=== PATIENT | female | born 1970 | race Caucasian/White ===

== ENCOUNTER 2016-03-16 07:18 | Inpatient (IN) | payer SELFPAY ==
[~2016-03-16] VITALS: Ht 162.6 cm; Wt 81.3 kg
[2016-03-16] VITALS (10 sets, daily range): BP systolic 109–139; BP diastolic 72–88; PULSE 68–132; RESP 16–20; TEMP 97.9–100.3; O2SAT 93–99
[~2016-03-16 07:18] MED LIST: BUSP5TAB PO; CIPR-9 PO; GABA600T PO; NORC5TAB PO; SERO100T PO; VIST50CA PO
[2016-03-16] MEDS ORDERED: KETOROLAC TROMETHAMINE 30 MG/ML (IVP) VIAL IV PUSH ONE (08:00)
[2016-03-16 08:02] LABS: AUTOMATED NEUTROPHIL # 20.5 TH/MM3 (1.8-7.7); BASOPHIL # 0.2 TH/MM3 (0-0.2); BASOPHIL % 0.9 % (0.0-2.0); EOSINOPHIL % 0.1 % (0.0-4.0); HEMATOCRIT 38.9 % (35.0-46.0); LYMPHOCYTE # 1.4 TH/MM3 (1.0-4.8); MEAN CELL VOLUME 82.7 FL (80.0-100.0); MEAN CORPUSCULAR HGB CONC 32.6 % (32.0-36.0); MONO % 5.8 % (0.0-8.0); NEUT % 87.2 % (16.0-70.0); PLATELET COUNT 313 TH/MM3 (150-450); RED BLOOD COUNT 4.71 MIL/MM3 (4.00-5.30); RED CELL DISTRIBUTION WIDTH 15.5 % (11.6-17.2); WHITE BLOOD COUNT 23.5 TH/MM3 (4.0-11.0)
--- NOTE | 2016-03-16 08:08 | RADHPO ---
EXAM DATE/TIME: 03/16/2016 07:58 [place] COMPARISON: CHEST SINGLE AP, September 26, 2015, 22:48. INDICATIONS : Short of breath, cough, fever MEDICAL HISTORY : None. SURGICAL HISTORY : None. ENCOUNTER: Initial ACUITY: 1 day PAIN SCORE: 0/10 LOCATION: Bilateral chest FINDINGS: Underinflated AP view of the chest demonstrates a normal-sized cardiac silhouette. There is hazy opac ity at both lung bases. No effusion, consolidation, or pneumothorax is appreciated. The bones and sof t tissues demonstrate no acute finding. CONCLUSION: Underinflation with likely atelectasis at the lung bases. Otherwise, no acute finding is appreciated. Bib Villasenor MD on March 16, 2016 at 8:05 Board Certified Radiologist. This report was verified electronically.
[2016-03-16 08:10] LABS: CHLORIDE 99 MEQ/L (98-107); POTASSIUM 3.8 MEQ/L (3.5-5.1); SODIUM (NA) 134 MEQ/L (136-145)
[2016-03-16 08:12] LABS: HEMO FLAGS DIFF FINAL
[2016-03-16 08:14] LABS: ANION GAP 11 MEQ/L (5-15); BICARBONATE 24.2 MEQ/L (21.0-32.0); BLOOD UREA NITROGEN 8 MG/DL (7-18)
[2016-03-16 08:17] LABS: ALT (GPT) 17 U/L (10-53); AST (GOT) 20 U/L (15-37); GLOMERULAR FILTRATION RATE 60 ML/MIN (>89)
[2016-03-16 08:18] LABS: TOTAL BILIRUBIN ADULT 0.7 MG/DL (0.2-1.0)
[2016-03-16 08:20] LABS: ALKALINE PHOSPHATASE 130 U/L (45-117)
[2016-03-16 08:38] LABS: BLOOD, URINE LARGE (NEG); GLUCOSE,URINE NEG (NEG); KETONE, URINE NEG (NEG); NITRITE,URINE NEG (NEG); PH, URINE 7.5 (5.0-8.5)
[2016-03-16 08:43] LABS: URINE COLOR RED (YELLW/STRAW)
[2016-03-16 08:44] LABS: RBC, URINE INNUM /hpf (0-3); SQUAMOUS EPITHELIAL CELL URINE > 8 /hpf (0-5)
[2016-03-16 08:45] LABS: COMMENT (UR) CULTURE INDICATED; CULTURE IF INDICATED CULTURE INDICATED; METHOD OF COLLECTION CLEAN CATCH
[2016-03-16] MEDS ORDERED: CEFEPIME INJ 2,000 MG in SODIUM CHLORIDE 0.9% INJ 100 ML IV ONE (09:00)
[2016-03-16] MEDS ORDERED: NALOXONE HCL 0.4 MG/ML AMP IV PRN (09:00)
[2016-03-16] MEDS ORDERED: MAGNESIUM HYDROXIDE SUSP 30 ML CUP PO PRN (09:00)
[2016-03-16] MEDS ORDERED: ACETAMINOPHEN/HYDROcodone 325 MG/5 MG TAB PO PRN ×2 (09:00→16:30)
[2016-03-16] MEDS ORDERED: ACETAMINOPHEN 325 MG TAB PO PRN (09:00)
[2016-03-16] MEDS: SODIUM CHLORIDE 0.9% FLUSH 5 ML FLUSH FLUSH SCH ×2 (09:00→21:20)
[2016-03-16] MEDS ORDERED: METOCLOPRAMIDE HCL 10 MG/2 ML VIAL IV PUSH PRN (09:00)
[2016-03-16] MEDS ORDERED: ONDANSETRON HCL 4 MG/2 ML VIAL IVP PRN (09:00)
[2016-03-16] MEDS ORDERED: SODIUM CHLOR 0.9% 1000 ML INJ 1,000 ML IV SCH ×2 (09:00)
[2016-03-16] MEDS ORDERED: VANCOMYCIN INJ 1,000 MG in SODIUM CHLOR 0.9% 250 ML INJ 250 ML IV ONE (09:00)
--- NOTE | 2016-03-16 09:06 | PD ---
HPI Chief Complaint: Cold / Flu Symptoms Time Seen by Provider: 07:38 Travel History International Travel<30 days: No Contact w/Intl Traveler<30days: No Traveled to known affect area: No History of Present Illness HPI This is a 46-year-old woman who presents to the emergency department complaining of chills vomiting, coughing with cough productive of phlegm and blood, congestion, as well as diffuse myalgias and body aches. She is a history of active IV drug use. She also states her stomach is feeling full and swollen and painful in the mid abdomen. She has a history of "colitis" and had [address] scans in the ED last year alone. She says she has some family members at home with some mild cough congestion symptoms. History Past Medical History Narrative Medical Seizure Heart attack Active IV drug use COPD PNEUMOCCOCAL Vaccine (Year): 2 LMP: now Menopausal: No : 10 Para: 6 Dilation and Curettage (D&C): Yes Social History Alcohol Use: No Tobacco Use: Yes (02/24 ppd) Allergies-Medications (Allergen,Severity, Reaction): Coded Allergies: Sulfa (Verified Allergy, Severe, Rash, 03/16/16) *MDRO Multi-Drug Resistant Organism (Verified Allergy, Unknown, 03/16/16) MRSA 11/03 (arm), 08/04 (hip), 05/05 (back). Acinetobacter baumannii Compazine (Verified Adverse Reaction, Unknown, ANGINA, 03/16/16) Magnesium Sulfate (Verified Adverse Reaction, Unknown, PRUITIC RASH, ) Terbutaline (Verified Adverse Reaction, Unknown, HEART RATE ELEVATES, 03/16) Reported Meds & Prescriptions Reported Meds & Active Scripts Active [place] (Hydrocodone-Acetaminophen) 5-325 mg Tab 1 Tab PO Q6H PRN Reported Vistaril (Hydroxyzine Pamoate) 50 Mg Cap 100 Mg PO BID Seroquel (Quetiapine Fumarate) 100 Mg Tab 100 Mg PO BID Gabapentin 600 Mg Tab 1,200 Mg PO BID Buspirone (Buspirone HCl) 5 Mg Tab 5 Mg PO BID Review of Systems Except as stated in HPI: all other systems reviewed are Neg Physical Exam Narrative GENERAL: 46 year-old woman, no acute distress. SKIN: Warm and dry. Extensive track pickering. HEAD: Atraumatic. Normocephalic. EYES: Pupils equal and round. No scleral icterus. No injection or drainage. ENT: No nasal bleeding or discharge. Mucous membranes pink and moist. NECK: Trachea midline. No JVD. CARDIOVASCULAR: Heart rate rapid. Soft systolic murmur. RESPIRATORY: No accessory muscle use. Clear to auscultation. Breath sounds equal bilaterally. GASTROINTESTINAL: Abdomen soft, non-tender, nondistended. Hepatic and splenic margins not palpable. MUSCULOSKELETAL: No obvious deformities. No edema. NEUROLOGICAL: Awake and alert. No obvious cranial nerve deficits. Motor grossly within normal limits. Normal speech. PSYCHIATRIC: Appropriate mood and affect; insight and judgment normal. Data Data Last Documented VS Vital Signs Date Time Temp Pulse Resp B/P Pulse Ox O2 Delivery O2 Flow Rate FiO2 03/16/16 07:47 93 Room Air 03/16/16 07:44 100.3 132 18 128/85 Orders Complete Blood Count With Diff (03/16/16 07:42) Comprehensive Metabolic Panel (03/16/16 07:42) Lactic Acid Sepsis Protocol (03/16/16 07:42) Lipase (03/16/16 07:42) Urinalysis - C+S If Indicated (03/16/16 07:42) Influenzae A/B Antigen (03/16/16 07:42) Blood Culture (03/16/16 07:42) Chest, Single Ap (03/16/16 07:42) Ecg Monitoring (03/16/16 07:42) Iv Access Insert/Monitor (03/16/16 07:42) Oximetry (03/16/16 07:42) Oxygen Administration (03/16/16 07:42) Ketorolac Inj (Toradol Inj) (03/16/16 08:00) Sodium Chlor 0.9% 1000 Ml Inj (Ns 1000 M (03/16/16 09:00) Sodium Chlor 0.9% 1000 Ml Inj (Ns 1000 M (03/16/16 09:00) Vancomycin Inj (Vancomycin Inj) (03/16/16 09:00) Cefepime Inj (Maxipime Inj) (03/16/16 09:00) Blood Culture (03/16/16 08:50) Urine Culture (03/16/16 08:24) Admit Order (Ed Use Only) (03/16/16 ) Labs Laboratory Tests Test 03/16/16 03/16/16 07:50 08:24 White Blood Count 23.5 TH/MM3 Red Blood Count 4.71 MIL/MM3 Hemoglobin 12.7 GM/DL Hematocrit 38.9 % Mean Corpuscular Volume 82.7 FL Mean Corpuscular Hemoglobin 27.0 PG Mean Corpuscular Hemoglobin 32.6 % Concent Red Cell Distribution Width 15.5 % Platelet Count 313 TH/MM3 Mean Platelet Volume 9.8 FL Neutrophils (%) (Auto) 87.2 % Lymphocytes (%) (Auto) 6.0 % Monocytes (%) (Auto) 5.8 % Eosinophils (%) (Auto) 0.1 % Basophils (%) (Auto) 0.9 % Neutrophils # (Auto) 20.5 TH/MM3 Lymphocytes # (Auto) 1.4 TH/MM3 Monocytes # (Auto) 1.4 TH/MM3 Eosinophils # (Auto) 0.0 TH/MM3 Basophils # (Auto) 0.2 TH/MM3 CBC Comment DIFF FINAL Differential Comment Sodium Level 134 MEQ/L Potassium Level 3.8 MEQ/L Chloride Level 99 MEQ/L Carbon Dioxide Level 24.2 MEQ/L Anion Gap 11 MEQ/L Blood Urea Nitrogen 8 MG/DL Creatinine 1.00 MG/DL Estimat Glomerular Filtration 60 ML/MIN Rate Random Glucose 122 MG/DL Lactic Acid Level 1.1 mmol/L Calcium Level 8.7 MG/DL Total Bilirubin 0.7 MG/DL Aspartate Amino Transf 20 U/L (AST/SGOT) Alanine Aminotransferase 17 U/L (ALT/SGPT) Alkaline Phosphatase 130 U/L Total Protein 8.3 GM/DL Albumin 3.6 GM/DL Lipase 37 U/L Urine Collection Type CLEAN CATCH Urine Color RED Urine Turbidity MARKED Urine pH 7.5 Urine Specific [place] 1.013 Urine Protein 30 mg/dL Urine Glucose (UA) NEG mg/dL Urine Ketones NEG mg/dL Urine Occult Blood LARGE Urine Nitrite NEG Urine Bilirubin NEG Urine Leukocyte Esterase SMALL Urine RBC INNUM /hpf Urine WBC 50-99 /hpf Urine Squamous Epithelial > 8 /hpf Cells Microscopic Urinalysis Comment CULTURE INDICATED Urine Collection Time 08:234 [facility] Medical Decision Making Medical Screen Exam Complete: Yes Emergency Medical Condition: Yes Interpretation(s) LABS: CBC remarkable for leukocytosis CMP generally unremarkable. Lipase normal Lactate 1.1 Influenza negative Chest x-ray: Under ablation likely atelectasis at the lung bases, otherwise no acute finding. Differential Diagnosis Sepsis, bacteremia or endocarditis, URI, flu, pneumonia, other Narrative Course Medical decision making 46 year-old woman, active IV drug use, fevers chills cough congestion suggestive of URI. Risk for bacteremia and sepsis. High white count, with tachycardia, tachypnea, is worrisome for sepsis. 3 culture sent. We'll do empiric IV antibiotics, supportive treatment. Diagnosis Primary Impression: Sepsis Evlis Ohara MD Mar 16, 2016 09:06
[2016-03-16] MEDS ORDERED: Vancomycin Consult Pharmacy 1 EA OTHER SCH (10:00)
[2016-03-16] MEDS: ACETAMINOPHEN/HYDROcodone 325 MG/5 MG TAB PO PRN ×3 (11:04→21:28)
[2016-03-16] MEDS: PIPERACIL-TAZO 4.5 GM PREMIX 100 ML IV SCH ×2 (11:54→17:33)
[2016-03-16] MEDS: NS + KCL 20 MEQ INJ 1,000 ML IV SCH ×2 (12:23→17:33)
[2016-03-16] MEDS ORDERED: guaiFENesin/CODEINE SYRUP 200 MG/20 MG/10 ML CUP PO PRN (16:30)
--- NOTE | 2016-03-16 16:51 | HHI.HP ---
[facility] No Primary Care Physician Admission Diagnosis sepsis Diagnoses: Travel History International Travel<30 Days: No Contact w/Intl Traveler <30 Da: No Traveled to Known Affected Are: No History of Present Illness This is a 46-year-old female with past medical history of COPD, previous skin infections, history of IV drug abuse who presents to the ER today complaining of cough, congestion, myalgias ongoing for the past several days. She also states that her abdomen feels swollen and that she has some pain on the left side of the abdomen which is worse from coughing and is sharp in nature. She endorses nausea. No vomiting. No diarrhea. No blood in the stool. She is on her menses currently. The patient denies active IV drug use but does admit that she has a track reza on her left hand. She states that it currently looks inflamed because her cat scratched it. The patient also claims that she takes Klonopin as prescribed by her psychiatrist. However I looked her up in the prescription drug monitoring program and the only controlled substances IC over the past year were prescribed in the ER. She has had numerous CT scans over the past year showing fibroid uterus, ovarian cysts. The patient has had one episode of pyelonephritis with Escherichia coli in the urine and blood. She also had a history of Enterococcus faecalis in the bloodstream in 2014 however workup for endocarditis was negative at that time. In the emergency department she had a low-grade fever of 100.3. She was initially tachycardic at 1:30. Pulse is now come down to the 90s after IV fluids. Blood pressure stable, sats stable on room air. The patient denies dyspnea. Lactic acid was 1.9. The patient received 2 L IV fluid bolus and vancomycin and Zosyn IV. Review of Systems Constitutional: COMPLAINS OF: Fever, Chills, DENIES: Weight gain, Weight loss Eyes: DENIES: Diplopia, Vision loss, Double Vision Ears, nose, mouth, throat: COMPLAINS OF: Throat pain, Hoarseness, DENIES: Nasal discharge Respiratory: COMPLAINS OF: Cough, Sputum production, DENIES: Wheezing, Shortness of breath Cardiovascular: DENIES: Chest pain, Palpitations, Syncope, Dyspnea on Exertion , Lower Extremity Edema Gastrointestinal: COMPLAINS OF: Nausea, DENIES: Abdominal pain, Black stools, Bloody stools, Constipation, Diarrhea, Vomiting Genitourinary: DENIES: Urinary frequency, Urgency, Dysuria Musculoskeletal: DENIES: Joint pain, Muscle aches Integumentary: DENIES: Pruritus, Rash Hematologic/lymphatic: DENIES: Bruising, Lymphadenopathy Neurologic: DENIES: Abnormal gait, Headache, Localized weakness, Poor Balance Psychiatric: COMPLAINS OF: Anxiety, DENIES: Confusion Past Family Social History Past Medical History She reports history of colitis in the past Fibroid uterus Ovarian cyst COPD History of IV drug abuse Depression and anxiety Chronic low back pain with degenerative disc disease Kidney stones History of seizures History of Escherichia coli and enterococcal sepsis Past Surgical History tubal ligation finger surgery Allergies: Coded Allergies: Sulfa (Verified Allergy, Severe, Rash, 03/16/16) *MDRO Multi-Drug Resistant Organism (Verified Allergy, Unknown, 03/16/16) MRSA 11/03 (arm), 08/04 (hip), / (back). Acinetobacter baumannii Compazine (Verified Adverse Reaction, Unknown, ANGINA, 03/16/16) Magnesium Sulfate (Verified Adverse Reaction, Unknown, PRUITIC RASH, ) Terbutaline (Verified Adverse Reaction, Unknown, HEART RATE ELEVATES, 03/16) Family History reviewed, CT Social History +tobacco Physical Exam Vital Signs Vital Signs Date Time Temp Pulse Resp B/P Pulse Ox O2 Delivery O2 Flow Rate FiO2 03/16/16 16:00 99.1 106 19 114/76 96 03/16/16 13:40 99.4 113 18 120/86 95 03/16/16 13:40 99.4 113 18 120/86 95 03/16/16 13:20 111 18 116/72 96 03/16/16 11:49 119 18 111/79 97 Room Air 03/16/16 11:10 99.5 124 20 125/84 99 Room Air 03/16/16 11:10 122 99 Room Air 03/16/16 10:07 116 18 110/73 94 Room Air 03/16/16 09:13 99.8 121 18 109/72 94 Room Air 03/16/16 07:47 93 Room Air 03/16/16 07:44 100.3 132 18 128/85 93 Physical Exam GENERAL: Well-nourished, well-developed pleasant female patient. Oropharynx: She has very poor dentition with caries. SKIN: Warm and dry. She has a track reza on her dorsum of the hand on the left as well as one further up the wrist. She has scratch pickering on her anterior right forearm which she states she got by scratching her arm on a prior fence while chasing after her cat. No other rashes. Skin well perfused. HEAD: Normocephalic. EYES: No scleral icterus. No injection or drainage. NECK: Supple, trachea midline. No JVD or lymphadenopathy. CARDIOVASCULAR: Regular rate and rhythm without murmurs, gallops, or rubs. RESPIRATORY: Breath sounds equal bilaterally. Scant wheezing. No accessory muscle use. GASTROINTESTINAL: Abdomen soft, non-tender, nondistended. EXTREMITIES: No cyanosis, or edema. NEUROLOGICAL: Awake, alert, and oriented x 3. Non-focal. Laboratory Laboratory Tests Test 03/16/16 03/16/16 07:50 08:24 White Blood Count 23.5 Red Blood Count 4.71 Hemoglobin 12.7 Hematocrit 38.9 Mean Corpuscular Volume 82.7 Mean Corpuscular Hemoglobin 27.0 Mean Corpuscular Hemoglobin 32.6 Concent Red Cell Distribution Width 15.5 Platelet Count 313 Mean Platelet Volume 9.8 Neutrophils (%) (Auto) 87.2 Lymphocytes (%) (Auto) 6.0 Monocytes (%) (Auto) 5.8 Eosinophils (%) (Auto) 0.1 Basophils (%) (Auto) 0.9 Neutrophils # (Auto) 20.5 Lymphocytes # (Auto) 1.4 Monocytes # (Auto) 1.4 Eosinophils # (Auto) 0.0 Basophils # (Auto) 0.2 CBC Comment DIFF FINAL Differential Comment Sodium Level 134 Potassium Level 3.8 Chloride Level 99 Carbon Dioxide Level 24.2 Anion Gap 11 Blood Urea Nitrogen 8 Creatinine 1.00 Estimat Glomerular Filtration 60 Rate Random Glucose 122 Lactic Acid Level 1.1 Calcium Level 8.7 Total Bilirubin 0.7 Aspartate Amino Transf 20 (AST/SGOT) Alanine Aminotransferase 17 (ALT/SGPT) Alkaline Phosphatase 130 Total Protein 8.3 Albumin 3.6 Lipase 37 Urine Collection Type CLEAN CATCH Urine Color RED Urine Turbidity MARKED Urine pH 7.5 Urine Specific [place] 1.013 Urine Protein 30 Urine Glucose (UA) NEG Urine Ketones NEG Urine Occult Blood LARGE Urine Nitrite NEG Urine Bilirubin NEG Urine Leukocyte Esterase SMALL Urine RBC INNUM Urine WBC 50-99 Urine Squamous Epithelial > 8 Cells Microscopic Urinalysis Comment CULTURE INDICATED Urine Collection Time 08:234 Date/Time Procedure Status Source Growth 03/16/16 08:53 Aerobic Blood Culture Received Blood Peripheral Pending 03/16/16 08:53 Anaerobic Blood Culture Received Blood Peripheral Pending 03/16/16 08:24 Urine Culture Received Urine Clean Catch Pending 03/16/16 08:24 Influenza Types A,B Antigen (SALLY) - Final Complete Nasal Washing NEGATIVE FOR FLU A AND B ANTIGEN.... Result Diagram: 03/16/16 0750 03/16/16 0750 Imaging Last Impressions Chest X-Ray 03/16/16 0742 Signed Impressions: Service Date/Time: Wednesday, March 16, 2016 07:58 - CONCLUSION: Underinflation with likely atelectasis at the lung bases. Otherwise, no acute finding is appreciated. Bib Villasenor MD Assessment and Plan Assessment and Plan -Sepsis. Source may be UTI. Given history of IV drug abuse need to rule out bacteremia. Continue vancomycin and Zosyn. Lactic acid is not elevated and blood pressure stable. Continue maintenance IV fluids. Follow up cultures. -Cough cold congestive symptoms. Chest x-ray was negative. Will treat symptomatic. -She reports history of colitis in the past Fibroid uterus Ovarian cyst COPD - DuoNeb when necessary. History of IV drug abuse Depression and anxiety - resume home meds. Chronic low back pain with degenerative disc disease Kidney stones History of seizures History of Escherichia coli and enterococcal sepsis DVT prophylaxis Indy Grant MD Mar 16, 2016 16:51
[2016-03-16] MEDS: GABAPENTIN 300 MG CAP PO SCH (21:18)
[2016-03-16] MEDS: QUEtiapine FUMARATE 100 MG TAB PO SCH (21:19)
[2016-03-16] MEDS: clonazePAM 0.5 MG TAB PO SCH (21:19)
[2016-03-16] MEDS: busPIRone HCL 5 MG TAB PO SCH (21:19)
[2016-03-16] MEDS: SODIUM CHLORIDE 0.9% FLUSH 5 ML FLUSH FLUSH PRN (23:50)
[2016-03-17] VITALS: BP 73/51; PULSE 83; RESP 14; TEMP 97.3; O2SAT 94
[2016-03-17] MEDS ORDERED: VANCOMYCIN INJ 1,250 MG in SODIUM CHLOR 0.9% 250 ML INJ 250 ML IV SCH ×4
[2016-03-17 00:15] VITALS: BP 92/62; PULSE 83
[2016-03-17] MEDS: SODIUM CHLORIDE 0.9% FLUSH 5 ML FLUSH FLUSH PRN ×2 (00:23→03:03)
[2016-03-17] MEDS: PIPERACIL-TAZO 4.5 GM PREMIX 100 ML IV SCH ×2 (00:23→05:57)
[2016-03-17] MEDS: NS + KCL 20 MEQ INJ 1,000 ML IV SCH ×2 (03:03→06:29)
[2016-03-17 04:00] VITALS: BP_SYST 88; BP_SYST 98; BP_DIAS 64; BP_DIAS 72; PULSE 70; RESP 16; TEMP 95.9; O2SAT 92
[2016-03-17] MEDS ORDERED: SODIUM CHLORID 0.9% 500 ML INJ 500 ML IV ONE (05:15)
[2016-03-17] MEDS: ACETAMINOPHEN/HYDROcodone 325 MG/5 MG TAB PO PRN (06:28)
[2016-03-17 08:00] VITALS: BP 98/67; PULSE 79; PULSE 92; RESP 16; TEMP 96; O2SAT 96
[2016-03-17] MEDS: QUEtiapine FUMARATE 100 MG TAB PO SCH (08:09)
[2016-03-17] MEDS: clonazePAM 0.5 MG TAB PO SCH (08:09)
[2016-03-17] MEDS: busPIRone HCL 5 MG TAB PO SCH (08:09)
[2016-03-17] MEDS: GABAPENTIN 300 MG CAP PO SCH (08:09)
[2016-03-17] MEDS: SODIUM CHLORIDE 0.9% FLUSH 5 ML FLUSH FLUSH SCH (08:09)
[2016-03-17 09:40] VITALS: BP 104/77; PULSE 84; RESP 20
[2016-03-17 10:39] LABS: AUTOMATED NEUTROPHIL # 7.7 TH/MM3 (1.8-7.7); BASOPHIL # 0.2 TH/MM3 (0-0.2); BASOPHIL % 2.2 % (0.0-2.0); EOSINOPHIL # 0.2 TH/MM3 (0-0.4); EOSINOPHIL % 1.5 % (0.0-4.0); HEMATOCRIT 28.7 % (35.0-46.0); LYMPH % 21.3 % (9.0-44.0); LYMPHOCYTE # 2.3 TH/MM3 (1.0-4.8); MEAN CELL VOLUME 81.6 FL (80.0-100.0); MEAN CORPUSCULAR HEMOGLOBIN 26.9 PG (27.0-34.0); MEAN CORPUSCULAR HGB CONC 32.9 % (32.0-36.0); MONO % 5.4 % (0.0-8.0); NEUT % 69.6 % (16.0-70.0); PLATELET COUNT 203 TH/MM3 (150-450); RED BLOOD COUNT 3.51 MIL/MM3 (4.00-5.30); RED CELL DISTRIBUTION WIDTH 15.4 % (11.6-17.2)
[2016-03-17 10:41] LABS: HEMO FLAGS AUTO DIFF
[2016-03-17 10:53] LABS: BICARBONATE 24.3 MEQ/L (21.0-32.0); POTASSIUM 3.9 MEQ/L (3.5-5.1)
[2016-03-17 11:10] LABS: SCAN/DIFF AUTO DIFF CONFIRMED
[2016-03-17 11:14] LABS: CALCIUM-PROTEIN CORRECTED 7.7 MG/DL (8.5-10.1)
[2016-03-17 12:00] VITALS: BP 92/71; PULSE 81; RESP 12; TEMP 96.8; O2SAT 94
[2016-03-17] MEDS ORDERED: ACETAMINOPHEN/HYDROcodone 325 MG/5 MG TAB PO PRN (12:00)
[2016-03-17] MEDS ORDERED: NICOTINE 21 MG/24 HR PATCH TD SCH (13:45)
--- NOTE | 2016-03-17 14:07 | HHI.PR ---
Subjective Remarks Patient states that she is surprised that her white blood cell count is normal because she still does not feel well. She states today she is having pain more on the right side of the abdomen. She states that she still having cough and congestion. Patient was seen in the presence of LEONARD Patrick. Objective Vitals Vital Signs Date Time Temp Pulse Resp B/P Pulse Ox O2 Delivery O2 Flow Rate FiO2 03/17/16 12:00 96.8 81 12 92/71 94 03/17/16 09:40 84 20 104/77 03/17/16 08:00 96.0 79 16 98/67 96 03/17/16 04:00 95.9 70 16 88/64 92 98/72 03/17/16 00:15 83 92/62 03/17/16 00:00 97.3 83 14 73/51 94 03/16/16 20:00 90 03/16/16 20:00 97.9 68 16 139/88 96 03/16/16 16:00 99.1 106 19 114/76 96 I/O 03/16/16 03/16/16 03/16/16 03/17/16 03/17/16 03/17/16 07:00 15:00 23:00 07:00 15:00 23:00 Intake Total 3050 ml 1435 ml 1293 ml 1140 ml Balance 3050 ml 1435 ml 1293 ml 1140 ml Intake Oral 600 ml 480 ml 1140 ml IV Total 2450 ml 955 ml 1293 ml # Voids 2 2 3 # Bowel Movements 0 0 Result Diagram: 03/17/16 1022 03/17/16 1022 Objective Remarks GENERAL: Well-nourished, well-developed pleasant female patient. Oropharynx: She has very poor dentition with caries. SKIN: Warm and dry. She has a track reza on her dorsum of the hand on the left as well as one further up the wrist. She has scratch pickering on her anterior right forearm which she states she got by scratching her arm on a prior fence while chasing after her cat. No other rashes. Skin well perfused. HEAD: Normocephalic. EYES: No scleral icterus. No injection or drainage. NECK: Supple, trachea midline. No JVD or lymphadenopathy. CARDIOVASCULAR: Regular rate and rhythm without murmurs, gallops, or rubs. RESPIRATORY: Breath sounds equal bilaterally. Scant wheezing. No accessory muscle use. GASTROINTESTINAL: Abdomen soft, non-tender, nondistended. EXTREMITIES: No cyanosis, or edema. NEUROLOGICAL: Awake, alert, and oriented x 3. Non-focal. A/P Assessment and Plan -Sepsis. She has gram-positive cocci growing in the blood. She is clinically stable right blood cell has trended down. Continue vancomycin and Zosyn. Lactic acid is not elevated and blood pressure stable. Continue maintenance IV fluids. Follow up cultures. -Drug-seeking behavior. Patient asked to increase the Lortab. She states the reason is for the abdominal pain. I explained (as I had yesterday) that I did not think that she had anything going on in her abdomen and wanted to avoid doing abdominal CT scan however since she she has had 7 over the past year including in December. However I told her that since she continues to complain of the abdominal pain that perhaps we should go ahead and do an abdominal CT scan although I made it clear to the patient that if I do not see an indication for nonspecific abdominal pain that I will not escalate the Lortab doses. However the patient then tells me that sepsis is painful and that I am not being symptomatic to her pain. I explained to the patient that I was concerned for her ongoing IV drug abuse as evidenced by her track pickering, the bacteremia in her bloodstream, and the fact that she was dishonest about being prescribed Klonopin as an outpatient (this was verified on the prescription tracking system ). The patient then stated that if I wasn't going to give her Lortab that she was going to leave AGAINST MEDICAL ADVICE. The patient then called me a "cunt" got out of bed and took her SCDs on and down the [facility]ra without stopping to sign AMA papers for the nurse. Discharge Planning PATIENT LEFT Indy Lima MD Mar 17, 2016 14:07
[2016-03-17] MEDS ORDERED: DIATRIZOATE MEGLUM/DIATRIZOATE SOD 9 ML CUP PO ONE (14:15)
[2016-03-17] MEDS ORDERED: REMOVE OLD NICODERM (NICOTINE) PATCH TD SCH (21:00)
[2016-03-19] MEDS ORDERED: VANCOMYCIN TROUGH XX ONE (05:45)
== END 2016-03-17 14:00 | disposition left against medical advice (07) | DRG 872 ==
LOC: PHED 07:18 → PHEDA 09:02 → PH3B 13:13
PROVIDERS: ADMIT Family Medicine; ATTEND Family Medicine
DX: A41.89 Other specified sepsis (principal); J44.9 Chronic obstructive pulmonary disease, unspecified; F32.9 Major depressive disorder, single episode, unspecified; F19.10 Other psychoactive substance abuse, uncomplicated; F41.9 Anxiety disorder, unspecified; G89.29 Other chronic pain; M54.5 Low back pain; R10.9 Unspecified abdominal pain; F17.210 Nicotine dependence, cigarettes, uncomplicated; Z76.5 Malingerer [conscious simulation]; Z88.2 Allergy status to sulfonamides; Z88.8 Allergy status to other drugs, medicaments and biological substances
CPT/HCPCS: 71010; 80048; 80053; 81001; 83605; 83690; 84155; 85025; 87040; 87077; 87086; 87186; 87205; 87804; 96374; J0692; J1885; J2405; J2543; J3370; J3480; J7030; J7040; J7050

== ENCOUNTER 2016-04-30 06:56 | Emergency (ER) | payer SELFPAY ==
[~2016-04-30] VITALS: Ht 162.6 cm; Wt 68.0 kg
[~2016-04-30 06:56] MED LIST changes: -CIPR-9 PO
[2016-04-30 07:02] VITALS: BP 136/83; PULSE 98; RESP 16; TEMP 98.9; O2SAT 100
[2016-04-30] MEDS ORDERED: PROMETHAZINE INJ 25 MG/ML VIAL IM ONE (07:30)
[2016-04-30] MEDS ORDERED: SODIUM CHLORIDE 0.9% FLUSH 5 ML FLUSH IVF PRN (07:30)
[2016-04-30] MEDS ORDERED: KETOROLAC TROMETHAMINE 30 MG/ML (IVP) VIAL IVP ONE (07:30)
[2016-04-30] MEDS ORDERED: ONDANSETRON HCL 4 MG/2 ML VIAL IVP ONE ×2 (07:30)
[2016-04-30] MEDS ORDERED: SODIUM CHLOR 0.9% 1000 ML INJ 1,000 ML IV ONE (07:30)
--- NOTE | 2016-04-30 07:33 | PD ---
HPI Chief Complaint: Abdominal Pain Time Seen by Provider: 07:10 Travel History International Travel<30 days: No Contact w/Intl Traveler<30days: No Traveled to known affect area: No History of Present Illness HPI The patient was seen and examined in the presence of the nurse. At no point in time was I in the room without the nurse present. This patient is brought in by ambulance for flare of her chronic abdominal pain. She complains of nausea and vomiting and abdominal pain for 2 days. He's had abdominal pain on and off for many years. She has no idea why she is so much abdominal pain. She is an IV drug abuser. She injected morphine into her 2 days ago. She does not have any fever or diarrhea or bleeding. No chest pain or shortness of breath. Symptoms severity is moderate. No alleviating factors. PFSH Past Medical History Asthma: Yes Autoimmune Disease: No Bipolar Disorder: Yes Anxiety: Yes Depression: Yes Heart Rhythm Problems: Yes (PALPITATIONS) Cancer: Yes (CERVICAL) Cardiac Catheterization: No Cardiovascular Problems: Yes High Cholesterol: No Congestive Heart Failure: No COPD: Yes Cerebrovascular Accident: Yes Diabetes: No Diminished Hearing: No Endocrine: No Gastrointestinal Disorders: Yes (COLITIS) GERD: Yes Genitourinary: Yes (UTI) Headaches: Yes Heparin Induced Thrombocytopen: No Herniated Disk: Yes Hypertension: Yes Immune Disorder: No Insomnia: Yes Kidney Stones: Yes Musculoskeletal: Yes (CHRONIC BACK PAIN) Neurologic: Yes (BRAIN INJURY) Psychiatric: Yes Reproductive: Yes Respiratory: Yes Immunizations Current: Yes Migraines: Yes Myocardial Infarction: Yes (2011) Seizures: Yes Thyroid Disease: No Ulcer: Yes PNEUMOCCOCAL Vaccine (Year): 2 ?: Not LMP: 3 WEEKS AGO Menopausal: No : 10 Para: 6 Miscarriage: 3 : 1 Ectopic : Yes (1994) Ovarian Cysts: Yes Dilation and Curettage (D&C): Yes Tubal Ligation: Yes Past Surgical History Abdominal Surgery: Yes (appendectomy ) Appendectomy: Yes Cardiac Surgery: No Cholecystectomy: Yes Coronary Artery Bypass Graft: No Ear Surgery: No Endocrine Surgery: No Eye Surgery: No Genitourinary Surgery: No Gynecologic Surgery: No Neurologic Surgery: Yes (HERNIATED LUMBAR DISCS ) Oral Surgery: No Thoracic Surgery: No Other Surgery: Yes (LEFT HAND SURGERY) Social History Alcohol Use: No Tobacco Use: Yes (1/2 ppd) Substance Use: Yes (IV morphine) Allergies-Medications (Allergen,Severity, Reaction): Coded Allergies: Sulfa (Verified Allergy, Severe, Rash, 04/30/16) *MDRO Multi-Drug Resistant Organism (Verified Adverse Reaction, Unknown, MRSA, 04/30/16) 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 Compazine (Verified Adverse Reaction, Unknown, ANGINA, 04/30/16) Magnesium Sulfate (Verified Adverse Reaction, Unknown, PRUITIC RASH, ) Terbutaline (Verified Adverse Reaction, Unknown, HEART RATE ELEVATES, ) Reported Meds & Prescriptions Reported Meds & Active Scripts Active Reported Vistaril (Hydroxyzine Pamoate) 50 Mg Cap 100 Mg PO BID Seroquel (Quetiapine Fumarate) 100 Mg Tab 100 Mg PO BID Gabapentin 600 Mg Tab 1,200 Mg PO BID Buspirone (Buspirone HCl) 5 Mg Tab 5 Mg PO BID Review of Systems General / Constitutional: No: Fever Eyes: No: Visual changes HENT: No: Headaches Cardiovascular: No: Chest Pain or Discomfort Respiratory: No: Shortness of Breath Gastrointestinal: Positive: Nausea, Vomiting, Abdominal Pain Genitourinary: No: Dysuria Musculoskeletal: No: Pain Skin: No Rash Neurologic: No: Weakness Psychiatric: Positive: Substance Abuse, No: Depression Endocrine: No: Polydipsia Hematologic/Lymphatic: No: Easy Bruising Physical Exam Narrative GENERAL: Disheveled Well-nourished, well-developed patient with nausea and abdominal pain. SKIN: Warm and dry. Has track pickering on the skin, most notable on her left hand. No sign of infection around them HEAD: Atraumatic. Normocephalic. EYES: Pupils equal and round. No scleral icterus. No injection or drainage. ENT: No nasal bleeding or discharge. Mucous membranes pink and moist. NECK: Trachea midline. No JVD. CARDIOVASCULAR: Regular rate and rhythm. No murmur appreciated. RESPIRATORY: No accessory muscle use. Clear to auscultation. Breath sounds equal bilaterally. GASTROINTESTINAL: Abdomen soft, non-tender, nondistended. Hepatic and splenic margins not palpable. MUSCULOSKELETAL: No obvious deformities. No clubbing. No cyanosis. No edema. NEUROLOGICAL: Awake and alert. No obvious cranial nerve deficits. Motor grossly within normal limits. Normal speech. PSYCHIATRIC: Anxious mood and affect; insight and judgment poor. Data Data Last Documented VS Vital Signs Date Time Temp Pulse Resp B/P Pulse Ox O2 Delivery O2 Flow Rate FiO2 04/30/16 07:02 98.9 98 16 136/83 100 Orders Complete Blood Count With Diff (04/30/16 07:23) Comprehensive Metabolic Panel (04/30/16 07:23) Lipase (04/30/16 07:23) Urinalysis - C+S If Indicated (04/30/16 07:23) Iv Access Insert/Monitor (04/30/16 07:23) NPO (04/30/16 07:23) Ondansetron Inj (Zofran Inj) (04/30/16 07:30) Sodium Chloride 0.9% Flush (Ns Flush) (04/30/16 07:30) Ketorolac Inj (Toradol Inj) (04/30/16 07:30) Ed Urine Pregnancytest Poc (04/30/16 07:23) Sodium Chlor 0.9% 1000 Ml Inj (Ns 1000 M (04/30/16 07:30) Promethazine Inj (Phenergan Inj) (04/30/16 07:30) Ondansetron Inj (Zofran Inj) (04/30/16 07:30) Urine Culture (04/30/16 07:15) Labs Laboratory Tests Test 04/30/16 04/30/16 07:15 07:20 Urine Collection Type CLEAN CATCH Urine Color YELLOW Urine Turbidity SLIGHT Urine pH 6.0 Urine Specific N[place]igh 1.027 Urine Protein 30 mg/dL Urine Glucose (UA) NEG mg/dL Urine Ketones 80 OR GREATER mg/dL Urine Occult Blood NEG Urine Nitrite NEG Urine Bilirubin NEG Urine Leukocyte Esterase NEG Urine WBC 6-8 /hpf Urine Squamous Epithelial > 8 /hpf Cells Urine Bacteria MOD /hpf Urine Mucus FEW /lpf Microscopic Urinalysis Comment CULTURE INDICATED Urine Collection Time 07:15 White Blood Count 8.1 TH/MM3 Red Blood Count 4.56 MIL/MM3 Hemoglobin 12.3 GM/DL Hematocrit 37.5 % Mean Corpuscular Volume 82.2 FL Mean Corpuscular Hemoglobin 27.0 PG Mean Corpuscular Hemoglobin 32.8 % Concent Red Cell Distribution Width 15.9 % Platelet Count 304 TH/MM3 Mean Platelet Volume 8.2 FL Neutrophils (%) (Auto) 73.1 % Lymphocytes (%) (Auto) 21.0 % Monocytes (%) (Auto) 5.1 % Eosinophils (%) (Auto) 0.4 % Basophils (%) (Auto) 0.4 % Neutrophils # (Auto) 6.0 TH/MM3 Lymphocytes # (Auto) 1.7 TH/MM3 Monocytes # (Auto) 0.4 TH/MM3 Eosinophils # (Auto) 0.0 TH/MM3 Basophils # (Auto) 0.0 TH/MM3 CBC Comment DIFF FINAL Differential Comment Sodium Level 140 MEQ/L Potassium Level 3.5 MEQ/L Chloride Level 104 MEQ/L Carbon Dioxide Level 24.2 MEQ/L Anion Gap 12 MEQ/L Blood Urea Nitrogen 12 MG/DL Creatinine 0.77 MG/DL Estimat Glomerular Filtration 81 ML/MIN Rate Random Glucose 136 MG/DL Calcium Level 8.4 MG/DL Total Bilirubin 0.4 MG/DL Aspartate Amino Transf 22 U/L (AST/SGOT) Alanine Aminotransferase 33 U/L (ALT/SGPT) Alkaline Phosphatase 126 U/L Total Protein 8.2 GM/DL Albumin 3.7 GM/DL Lipase 54 U/L MDM Medical Decision Making Medical Screen Exam Complete: Yes Emergency Medical Condition: Yes Medical Record Reviewed: Yes Differential Diagnosis Exacerbation of chronic abdominal pain, gastroparesis, narcotic withdrawal Narrative Course I have reviewed the patient's electronic medical record. She is a frequent visitor to the ER. She is here for abdominal pain often. She has had 4 CAT scans in the last 9 months, none of which show any acute problem IV placed I gave her 1 L normal saline IV and a dose of IV Zofran and IM Phenergan and IV Toradol CBC is normal Metabolic profile is normal other than borderline low glucose LFTs are normal Urinalysis is clean Urine is negative Patient's vital signs are normal. She has a soft benign abdomen This is a flare of a chronic problem. I think most likely she has narcotic withdrawal symptoms Minimizes her drug use but this is probably her main problem. Recommending she go to [facility] to discuss their drug rehabilitation services. No clinical suspicion of endocarditis. Does not have fever or chest symptoms. I refilled her Neurontin for her. I gave her a few Phenergan on prescription. She tolerates them well and has no reaction to them I have warned her about potential sedation Diagnosis Primary Impression: Abdominal pain Qualified Code: R10.84 - Generalized abdominal pain Additional Impressions: Substance abuse Nausea and vomiting Qualified Code: R11.2 - Non-intractable vomiting with nausea, unspecified vomiting type Additional Instructions: The patient was warned about potential sedation for the medications they will receive on prescription. The patient was advised to follow up with their physician and return if they worsen. Recommending [facility] drug rehabilitation services Med/Other Pt SpecificInfo: Prescription(s) given Scripts Promethazine (Phenergan)25 Mg Tab25 Mg PO Q6H PRN (Nausea/Vomiting) #10 TAB Ref 0 Prov:Andres Cordova MD 04/30/16 Gabapentin 600 Mg Tab1,200 Mg PO BID #60 TAB Ref 0 Prov:Andres Cordova MD 04/30/16 Disposition: 01 DISCHARGE HOME Condition: Stable Andres Cordova MD Apr 30, 2016 07:32
[2016-04-30 07:45] LABS: BASOPHIL % 0.4 % (0.0-2.0); EOSINOPHIL % 0.4 % (0.0-4.0); HEMATOCRIT 37.5 % (35.0-46.0); HEMO FLAGS DIFF FINAL; LYMPHOCYTE # 1.7 TH/MM3 (1.0-4.8); MEAN CELL VOLUME 82.2 FL (80.0-100.0); MEAN CORPUSCULAR HGB CONC 32.8 % (32.0-36.0); MONO % 5.1 % (0.0-8.0); NEUT % 73.1 % (16.0-70.0); PLATELET COUNT 304 TH/MM3 (150-450); RED BLOOD COUNT 4.56 MIL/MM3 (4.00-5.30); RED CELL DISTRIBUTION WIDTH 15.9 % (11.6-17.2); WHITE BLOOD COUNT 8.1 TH/MM3 (4.0-11.0)
[2016-04-30 07:53] LABS: CHLORIDE 104 MEQ/L (98-107); POTASSIUM 3.5 MEQ/L (3.5-5.1); SODIUM (NA) 140 MEQ/L (136-145)
[2016-04-30 07:57] LABS: ANION GAP 12 MEQ/L (5-15); BICARBONATE 24.2 MEQ/L (21.0-32.0); BLOOD UREA NITROGEN 12 MG/DL (7-18)
[2016-04-30 07:59] LABS: ALT (GPT) 33 U/L (10-53); AST (GOT) 22 U/L (15-37)
[2016-04-30 08:00] LABS: GLOMERULAR FILTRATION RATE 81 ML/MIN (>89)
[2016-04-30 08:01] LABS: TOTAL BILIRUBIN ADULT 0.4 MG/DL (0.2-1.0)
[2016-04-30 08:02] LABS: ALKALINE PHOSPHATASE 126 U/L (45-117)
[2016-04-30 08:05] LABS: BLOOD, URINE NEG (NEG); GLUCOSE,URINE NEG (NEG); NITRITE,URINE NEG (NEG)
[2016-04-30 08:13] LABS: KETONE, URINE 80 OR GREATER mg/dL (NEG); METHOD OF COLLECTION CLEAN CATCH; URINE COLOR YELLOW (YELLW/STRAW)
[2016-04-30 08:14] LABS: BACTERIA, URINE MOD /hpf; MUCUS URINE FEW /lpf (OCC); SQUAMOUS EPITHELIAL CELL URINE > 8 /hpf (0-5)
[2016-04-30 08:15] LABS: COMMENT (UR) CULTURE INDICATED; CULTURE IF INDICATED CULTURE INDICATED
[2016-04-30 08:30] VITALS: BP 130/74; PULSE 88; RESP 18; O2SAT 99
[2016-04-30] MEDS ORDERED: GABA600T PO (08:58)
[2016-04-30] MEDS ORDERED: PROM25TA5 PO (08:58)
[2016-04-30 09:15] VITALS: BP 139/80; PULSE 88; RESP 16; O2SAT 99
== END 2016-04-30 09:35 | disposition home or self-care (01) ==
LOC: PHED 06:56
DX: R10.84 Generalized abdominal pain (principal); F11.10 Opioid abuse, uncomplicated; R11.2 Nausea with vomiting, unspecified; F17.210 Nicotine dependence, cigarettes, uncomplicated
CPT/HCPCS: 80053; 81001; 83690; 84703; 85025; 87086; 96361; 96372; 96374; 96375; 99284; J1885; J2405; J2550; J7030

== ENCOUNTER 2016-06-29 14:59 | Emergency (ER) | payer SELFPAY ==
[~2016-06-29] VITALS: Ht 162.6 cm; Wt 79.0 kg
[~2016-06-29 14:59] MED LIST changes: -NORC5TAB PO; +PROM25TA5 PO
[2016-06-29 15:02] VITALS: BP 136/91; PULSE 96; RESP 19; TEMP 99.1; O2SAT 97
[2016-06-29] MEDS ORDERED: CLINDAMYCIN INJ 600 MG in SODIUM CHLORIDE 0.9% INJ 100 ML IV ONE (15:30)
[2016-06-29] MEDS ORDERED: SODIUM CHLORIDE 0.9% FLUSH 10 ML FLUSH IVF PRN (15:30)
--- NOTE | 2016-06-29 15:44 | PD ---
HPI Chief Complaint: Skin Problem Time Seen by Provider: 15:20 Travel History International Travel<30 days: No Contact w/Intl Traveler<30days: No Traveled to known affect area: No History of Present Illness HPI 46-year-old female presents to the emergency room for evaluation of left foot pain and swelling the past 6 days. Patient injected Dilaudid into the top of her foot 6 days ago. Since then she has had worsening redness, pain, and swelling. Pain is so severe she has difficulty ambulating. It is worse with range of motion of the toes. Radiates up to her ankle. Denies paresthesias. She reports associated chills, but has not actually taken her temperature. She has associated nausea but no vomiting. Patient reports history of stroke and [place] but does not take medication for them. She does take 2 baby aspirin sublingually daily. She takes Lamictal, Vistaril, and BuSpar for bipolar disorder. She has history of ulcerative colitis but is only treating it with Tylenol and ibuprofen at this time. Unknown last tetanus. Last ate crackers at 10:00 this morning. She has only had a few sips of water today. PFSH Past Medical History Asthma: Yes Autoimmune Disease: No Bipolar Disorder: Yes Anxiety: Yes Depression: Yes Heart Rhythm Problems: Yes (PALPITATIONS) Cancer: Yes (CERVICAL) Cardiac Catheterization: No Cardiovascular Problems: Yes High Cholesterol: No Congestive Heart Failure: No COPD: Yes Cerebrovascular Accident: Yes Diabetes: No Diminished Hearing: No Endocrine: No Gastrointestinal Disorders: Yes (COLITIS) GERD: Yes Genitourinary: Yes (UTI) Headaches: Yes Heparin Induced Thrombocytopen: No Herniated Disk: Yes Hypertension: Yes Immune Disorder: No Insomnia: Yes Kidney Stones: Yes Musculoskeletal: Yes (CHRONIC BACK PAIN) Neurologic: Yes (BRAIN INJURY) Psychiatric: Yes Reproductive: Yes Respiratory: Yes Immunizations Current: Yes Migraines: Yes Myocardial Infarction: Yes (2011) Seizures: Yes Thyroid Disease: No Ulcer: Yes Influenza Vaccination: No PNEUMOCCOCAL Vaccine (Year): 2 ?: Not LMP: ON NOW Menopausal: No : 10 Para: 6 Miscarriage: 3 : 1 Ectopic : Yes (1994) Ovarian Cysts: Yes Dilation and Curettage (D&C): Yes Tubal Ligation: Yes Past Surgical History Abdominal Surgery: Yes (appendectomy ) Appendectomy: Yes Cardiac Surgery: No Cholecystectomy: Yes Coronary Artery Bypass Graft: No Ear Surgery: No Endocrine Surgery: No Eye Surgery: No Genitourinary Surgery: No Gynecologic Surgery: No Neurologic Surgery: Yes (HERNIATED LUMBAR DISCS ) Oral Surgery: No Thoracic Surgery: No Other Surgery: Yes (LEFT HAND SURGERY) Social History Alcohol Use: No Tobacco Use: Yes (02/24 ppd) Substance Use: Yes (weed) Allergies-Medications (Allergen,Severity, Reaction): Coded Allergies: Sulfa (Verified Allergy, Severe, Rash, 06/29/16) *MDRO Multi-Drug Resistant Organism (Verified Adverse Reaction, Unknown, MRSA, 06/29/16) 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 Compazine (Verified Adverse Reaction, Unknown, ANGINA, 06/29/16) Magnesium Sulfate (Verified Adverse Reaction, Unknown, PRUITIC RASH, ) Terbutaline (Verified Adverse Reaction, Unknown, HEART RATE ELEVATES, ) Reported Meds & Prescriptions Reported Meds & Active Scripts Active Keflex (Cephalexin) 500 Mg Cap 500 Mg PO Q6H 10 Days Clindamycin (Clindamycin HCl) 150 Mg Cap 300 Mg PO Q6H 10 Days Gabapentin 600 Mg Tab 1,200 Mg PO BID Reported Vistaril (Hydroxyzine Pamoate) 50 Mg Cap 100 Mg PO BID Seroquel (Quetiapine Fumarate) 100 Mg Tab 100 Mg PO BID Buspirone (Buspirone HCl) 5 Mg Tab 5 Mg PO BID Review of Systems Except as stated in HPI: all other systems reviewed are Neg Physical Exam Narrative GENERAL: Well developed, well-nourished female in no acute distress. Afebrile. SKIN: Focused skin assessment warm/dry. There is an indurated area at the top of the foot which measures about 6 cm in diameter. It is fluctuant but there is no pointing or drainage. There is a zone of inflammation with lymphangitis extending up the ankle. HEAD: Atraumatic. Normocephalic. EYES: Pupils equal and round. No scleral icterus. No injection or drainage. NECK: Trachea midline. No JVD. CARDIOVASCULAR: Regular rate and rhythm. No murmur appreciated. RESPIRATORY: No accessory muscle use. Clear to auscultation. Breath sounds equal bilaterally. MUSCULOSKELETAL: No obvious deformities. No clubbing. No cyanosis. Extreme tenderness to palpation of the top of the left foot. Very limited range of motion secondary to pain. Left foot is slightly cool to touch compared to the right. Less than 2 second capillary refill distally. Moderate to severe edema of the left foot. NEUROLOGICAL: Awake and alert. No obvious cranial nerve deficits. Motor grossly within normal limits. Normal speech. PSYCHIATRIC: Appropriate mood and affect; insight and judgment normal. Data Data Last Documented VS Vital Signs Date Time Temp Pulse Resp B/P Pulse Ox O2 Delivery O2 Flow Rate FiO2 06/29/16 18:00 74 16 119/64 95 06/29/16 15:02 99.1 Orders Complete Blood Count With Diff (06/29/16 15:28) Blood Culture (06/29/16 15:28) Iv Access Insert/Monitor (06/29/16 15:28) Ketorolac Inj (Toradol Inj) (06/29/16 15:30) Sodium Chloride 0.9% Flush (Ns Flush) (06/29/16 15:30) Clindamycin Inj (Cleocin Inj) (06/29/16 15:30) Comprehensive Metabolic Panel (06/29/16 15:28) Ondansetron Inj (Zofran Inj) (06/29/16 15:30) Foot, Complete ([id number]) (06/29/16 ) Vancomycin Inj (Vancomycin Inj) (06/29/16 15:45) Hydromorphone Pf Inj (Dilaudid Pf Inj) (06/29/16 15:45) Lactic Acid (06/29/16 15:43) Tetanus/Diphtheria Tox Adult (Tetanus/Di (06/29/16 15:45) Lidocaine 1% Inj (Xylocaine 1% Inj) (06/29/16 17:00) Lidocaine 1% Inj (50 Ml) (Xylocaine 1% I (06/29/16 17:00) Wound Culture And Gram Stain (06/29/16 17:16) Hydromorphone Pf Inj (Dilaudid Pf Inj) (06/29/16 17:30) Consult Podiatry (06/29/16 ) (Hub Use Only)Inp Phy Cons/Ref (06/29/16 ) Diphenhydramine (Benadryl) (06/29/16 18:15) Crutches (06/29/16 19:17) Labs Laboratory Tests Test 06/29/16 06/29/16 15:40 15:45 White Blood Count 10.0 TH/MM3 Red Blood Count 4.22 MIL/MM3 Hemoglobin 10.8 GM/DL Hematocrit 33.5 % Mean Corpuscular Volume 79.5 FL Mean Corpuscular Hemoglobin 25.6 PG Mean Corpuscular Hemoglobin 32.3 % Concent Red Cell Distribution Width 15.5 % Platelet Count 369 TH/MM3 Mean Platelet Volume 8.0 FL Neutrophils (%) (Auto) 71.9 % Lymphocytes (%) (Auto) 21.8 % Monocytes (%) (Auto) 4.6 % Eosinophils (%) (Auto) 1.1 % Basophils (%) (Auto) 0.6 % Neutrophils # (Auto) 7.1 TH/MM3 Lymphocytes # (Auto) 2.2 TH/MM3 Monocytes # (Auto) 0.5 TH/MM3 Eosinophils # (Auto) 0.1 TH/MM3 Basophils # (Auto) 0.1 TH/MM3 CBC Comment DIFF FINAL Differential Comment Sodium Level 140 MEQ/L Potassium Level 3.9 MEQ/L Chloride Level 106 MEQ/L Carbon Dioxide Level 26.7 MEQ/L Anion Gap 7 MEQ/L Blood Urea Nitrogen 8 MG/DL Creatinine 0.89 MG/DL Estimat Glomerular Filtration 69 ML/MIN Rate Random Glucose 98 MG/DL Calcium Level 8.6 MG/DL Total Bilirubin 0.3 MG/DL Aspartate Amino Transf 19 U/L (AST/SGOT) Alanine Aminotransferase 23 U/L (ALT/SGPT) Alkaline Phosphatase 132 U/L Total Protein 7.9 GM/DL Albumin 3.5 GM/DL Lactic Acid Level 1.3 mmol/L [facility] Medical Decision Making Medical Screen Exam Complete: Yes Emergency Medical Condition: Yes Medical Record Reviewed: Yes Differential Diagnosis Abscess versus compartment syndrome versus cellulitis Narrative Course 46-year-old female presents to the emergency room for evaluation of redness, swelling, and pain after injecting Dilaudid to the top of her foot 6 days ago. She reports associated chills but no objective fevers. She is afebrile and well -appearing in the emergency room. Vital signs stable. Physical exam reveals extreme erythema, edema, and tenderness to palpation of the left foot. Less than 2 second capillary refill distally. Limited range of motion secondary to pain. Slight decreased warmth of the left foot as compared to right. Patient denies paresthesias. X-ray is negative for bony involvement. CBC and CMP are unremarkable. Blood cultures drawn. Lactic is 1.3. Patient updated on tetanus and started on vancomycin. She was also given Toradol, and Zofran, and Dilaudid for pain. I spoke to Dr. Portillo, who saw the patient in the emergency room and performed an aspiration which revealed blood but no pus. Dr. Portillo states patient is stable for outpatient antibiotics and follow- up in his office this week. Patient was discharged with prescriptions for clindamycin and Keflex. She was also given a coupon for clindamycin and advised at which pharmacy's have low-cost antibiotics. Patient was told to return tomorrow for recheck. She was given information for Dr. Portillo to follow-up at his office. Patient was not happy to not be discharged without pain medication. She understands and agrees to plan. Diagnosis Primary Impression: Left foot infection Referrals: Pablo Portillo DPM Patient Instructions: Abscess (ED), General Instructions Additional Instructions: Rest and drink plenty of fluids. Take clindamycin as directed, until gone. Take Keflex as directed, until gone. Warm compresses for 15 minutes at a time 5 times daily. Return to ER for recheck tomorrow. Follow up with a Dr. Portillo. Return to emergency room for worsening symptoms, as discussed. Med/Other Pt SpecificInfo: Prescription(s) given Scripts Cephalexin (Keflex)500 Mg [id number] Mg PO Q6H 10 Days Ref 0 Prov:Nisa Clark DO 06/29/16 Clindamycin 150 Mg [id number] Mg PO Q6H 10 Days Ref 0 Prov:Nisa Clark DO 06/29/16 Disposition: 01 DISCHARGE HOME Condition: Stable Rocio Corea June 29, 2016 15:43
[2016-06-29 15:50] LABS: AUTOMATED NEUTROPHIL # 7.1 TH/MM3 (1.8-7.7); BASOPHIL # 0.1 TH/MM3 (0-0.2); BASOPHIL % 0.6 % (0.0-2.0); EOSINOPHIL # 0.1 TH/MM3 (0-0.4); EOSINOPHIL % 1.1 % (0.0-4.0); HEMATOCRIT 33.5 % (35.0-46.0); HEMO FLAGS DIFF FINAL; LYMPH % 21.8 % (9.0-44.0); LYMPHOCYTE # 2.2 TH/MM3 (1.0-4.8); MEAN CELL VOLUME 79.5 FL (80.0-100.0); MEAN CORPUSCULAR HEMOGLOBIN 25.6 PG (27.0-34.0); MEAN CORPUSCULAR HGB CONC 32.3 % (32.0-36.0); MONO % 4.6 % (0.0-8.0); NEUT % 71.9 % (16.0-70.0); PLATELET COUNT 369 TH/MM3 (150-450); RED BLOOD COUNT 4.22 MIL/MM3 (4.00-5.30); RED CELL DISTRIBUTION WIDTH 15.5 % (11.6-17.2)
[2016-06-29 16:01] LABS: CHLORIDE 106 MEQ/L (98-107); POTASSIUM 3.9 MEQ/L (3.5-5.1); SODIUM (NA) 140 MEQ/L (136-145)
[2016-06-29] MEDS: HYDROmorphone HCL PF 1 MG/ML VIAL IV PUSH ONE ×2 (16:01→17:25)
[2016-06-29] MEDS: KETOROLAC TROMETHAMINE 30 MG/ML (IVP) VIAL IVP ONE (16:01)
[2016-06-29] MEDS: ONDANSETRON HCL 4 MG/2 ML VIAL IVP ONE (16:01)
[2016-06-29 16:05] LABS: ANION GAP 7 MEQ/L (5-15); BICARBONATE 26.7 MEQ/L (21.0-32.0); BLOOD UREA NITROGEN 8 MG/DL (7-18)
[2016-06-29 16:07] LABS: ALT (GPT) 23 U/L (10-53)
[2016-06-29 16:08] LABS: AST (GOT) 19 U/L (15-37); GLOMERULAR FILTRATION RATE 69 ML/MIN (>89)
[2016-06-29 16:09] LABS: TOTAL BILIRUBIN ADULT 0.3 MG/DL (0.2-1.0)
[2016-06-29 16:11] LABS: ALKALINE PHOSPHATASE 132 U/L (45-117)
[2016-06-29] MEDS: VANCOMYCIN INJ 1,600 MG in SODIUM CHLORID 0.9% 500 ML INJ 500 ML IV ONE (16:20)
[2016-06-29] MEDS: TETANUS/DIPHTHERIA TOXOID ADULT 0.5 ML VIAL IM ONE (16:22)
[2016-06-29 16:30] VITALS: BP 134/91; PULSE 85; RESP 16; O2SAT 95
[2016-06-29] MEDS: LIDOCAINE HCL 1% 30 ML VIAL INFIL ONE (17:00)
[2016-06-29] MEDS: LIDOCAINE HCL 1% 50 ML VIAL INFIL ONE (17:13)
--- NOTE | 2016-06-29 17:27 | RADHPO ---
EXAM DATE/TIME: 06/29/2016 15:43 [facility] COMPARISON: No previous studies available for comparison. INDICATIONS : Infected needle stick left foot, pain, swelling, red MEDICAL HISTORY : None. SURGICAL HISTORY : None. ENCOUNTER: Initial ACUITY: 4 - 6 days PAIN SCORE: 10/10 LOCATION: Left foot FINDINGS: There is soft tissue swelling of the forefoot. No acute bony abnormalities. No fracture or dislocatio n. CONCLUSION: 1. Soft tissue swelling of the forefoot. Shabbir Tanner MD on June 29, 2016 at 17:23 Board Certified Radiologist. This report was verified electronically.
--- NOTE | 2016-06-29 17:30 | PD.POD.CON ---
Patient Intake Chief Complaint Redness and swelling and pain on the dorsum of the left foot Consult Requested by [facility] Reason for Consult Evaluation and treatment of swelling on the foot Primary Care Physician Non-Staff History of Present Illness Patient is a 46-year-old female who approximately 6 days ago was injecting morphine or Dilaudid into the dorsal aspect of her left foot. Over the next few days she began having swelling and redness of the foot. She then was developing pain and tingling of her feet. She presented to the emergency department and I was asked to see the patient to evaluate her for compartment syndrome. She has been afebrile. But she has had some nausea and loss of appetite. Patient does have substance abuse history Coded Allergies: Sulfa (Verified Allergy, Severe, Rash, 06/29/16) *MDRO Multi-Drug Resistant Organism (Verified Adverse Reaction, Unknown, MRSA, 06/29/16) 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 Compazine (Verified Adverse Reaction, Unknown, ANGINA, 06/29/16) Magnesium Sulfate (Verified Adverse Reaction, Unknown, PRUITIC RASH, ) Terbutaline (Verified Adverse Reaction, Unknown, HEART RATE ELEVATES, ) Preferred Language to Discuss: Urdu Barriers to Learning: None Teaching Method: Discussion Vital Signs Date Time Temp Pulse Resp B/P Pulse Ox O2 Delivery O2 Flow Rate FiO2 06/29/16 16:30 85 16 134/91 95 06/29/16 15:02 99.1 96 19 136/91 97 Pain scale used: 0-10 numeric scale Pain score: 9 Medications Current Medications Ketorolac Tromethamine (Toradol Inj) 30 mg ONCE ONCE IVP Last administered on 06/29/16t 16:01; Start 06/29/16 at 15:30; Stop 06/29/16 at 15:32; Status DC Sodium Chloride 2 ml 2 ml UNSCH PRN IVF FLUSH AFTER USING IV ACCESS; Start 06/29 at 15:30 Clindamycin Phosphate/Sodium Chloride (Cleocin Inj/NS Inj) 104 ml @ 200 mls/hr ONCE ONCE IV ; Start 06/29/16 at 15:30; Stop 06/29/16 at 15:35; Status DC Ondansetron HCl 4 mg 4 mg ONCE ONCE IVP Last administered on 06/29/16 16:01; Start 06/29/16 at 15:30; Stop 06/29/16 at 15:32; Status DC Vancomycin HCl/ Sodium Chloride (Vancomycin Inj/ NS 500 ml Inj) 516 ml @ 250 mls/hr ONCE ONCE IV Last administered on 06/29/16 16:20; Start 06/29/16 at 15: 45; Stop 06/29/16 at 17:48 Hydromorphone HCl (Dilaudid Pf Inj) 1 mg ONCE ONCE IV PUSH Last administered on 06/29/16 16:01; Start 06/29/16 at 15:45; Stop 06/29/16 at 15:46; Status DC Tetanus/ Diphtheria Toxoids (Tetanus/ Diphtheria Tox Adult) 0.5 ml ONCE ONCE IM Last administered on 06/29/16 16:22; Start 06/29/16 at 15:45; Stop 06/29/16 at 15:46; Status DC Lidocaine HCl (Xylocaine 1% Inj) 30 ml ONCE ONCE INFIL ; Start 06/29/16 at 17:00 ; Stop 06/29/16 at 17:01; Status DC Lidocaine HCl (Xylocaine 1% Inj (50 ml)) 10 ml ONCE ONCE INFIL Last administered on 06/29/16 17:13; Start 06/29/16 at 17:00; Stop 06/29/16 at 17:01; Status DC Past, Family & Social History Past Medical History PFSH Reviewed: Yes Cardiovascular: REPORTS HX OF: Myocardial infarction Gastrointestinal: REPORTS HX OF: Irritable bowel syndrome Neurologic: REPORTS HX OF: Stroke Psychiatric: REPORTS HX OF: Bipolar disorder Exam-Podiatry Constitutional General appearance: uncomfortable Nutritional status: normal Orientation: alert and oriented x3 Dermatological Exam Skin Temp - Right: Within Normal Limits Skin Texture - Right: Within Normal Limits Skin Elasticity - Right: Within Normal Limits Skin Tugor - Right: Within Normal Limits Hair Growth - Right: Within Normal Limits Pigmentation - Right: Within Normal Limits Skin Temp - Left: Hot Skin Texture - Left: Shiny Skin Elasticity - Left: Decreased Skin Tugor - Left: Abnormal Hair Growth - Left: Within Normal Limits Pigmentation - Left: Within Normal Limits Present on left: Abscess (versus hematoma) Vascular/Lymphatic Exam R Dorsails Pedis: Palpable L Dorsails Pedis: Palpable R Posterior Tibial: Palpable L Posterior Tibial: Palpable Neurologic Exam Details No neurological deficits seen Present on left: Pain, Tingling Monofilament exam: 1st metatarsal head: normal 5th metatarsal head: normal Great toe: normal Muscle Strength Dorsiflexion (Right): Normal Plantarflexion (Right): Normal Inversion (Right): Normal Eversion (Right): Normal Digital (Right): Normal Dorsiflexion (Left): Normal Plantarflexion (Left): Normal Inversion (Left): Normal Eversion (Left): Normal Digital (Left): Normal Foot Range of Motion Dorsiflexion (Right): Normal Plantarflexion (Right): Normal Inversion (Right): Normal Eversion (Right): Normal Digital (Right): Normal Dorsiflexion (Left): Normal Plantarflexion (Left): Normal Inversion (Left): Normal Eversion (Left): Normal Digital (Left): Normal Lab and Radiology Results Laboratory Laboratory Tests Test 06/29/16 15:40 White Blood Count 10.0 TH/MM3 Red Blood Count 4.22 MIL/MM3 Hemoglobin 10.8 GM/DL Hematocrit 33.5 % Mean Corpuscular Volume 79.5 FL Mean Corpuscular Hemoglobin 25.6 PG Mean Corpuscular Hemoglobin 32.3 % Concent Red Cell Distribution Width 15.5 % Platelet Count 369 TH/MM3 Mean Platelet Volume 8.0 FL Neutrophils (%) (Auto) 71.9 % Lymphocytes (%) (Auto) 21.8 % Monocytes (%) (Auto) 4.6 % Eosinophils (%) (Auto) 1.1 % Basophils (%) (Auto) 0.6 % Neutrophils # (Auto) 7.1 TH/MM3 Lymphocytes # (Auto) 2.2 TH/MM3 Monocytes # (Auto) 0.5 TH/MM3 Eosinophils # (Auto) 0.1 TH/MM3 Basophils # (Auto) 0.1 TH/MM3 CBC Comment DIFF FINAL Differential Comment Laboratory Tests Test 06/29/16 06/29/16 15:40 15:45 Sodium Level 140 MEQ/L Potassium Level 3.9 MEQ/L Chloride Level 106 MEQ/L Carbon Dioxide Level 26.7 MEQ/L Anion Gap 7 MEQ/L Blood Urea Nitrogen 8 MG/DL Creatinine 0.89 MG/DL Estimat Glomerular Filtration 69 ML/MIN Rate Random Glucose 98 MG/DL Calcium Level 8.6 MG/DL Total Bilirubin 0.3 MG/DL Aspartate Amino Transf 19 U/L (AST/SGOT) Alanine Aminotransferase 23 U/L (ALT/SGPT) Alkaline Phosphatase 132 U/L Total Protein 7.9 GM/DL Albumin 3.5 GM/DL Lactic Acid Level 1.3 mmol/L Microbiology Date/Time Procedure Status Source Growth 06/29/16 15:40 Aerobic Blood Culture Received Blood Peripheral Pending 06/29/16 15:40 Anaerobic Blood Culture Received Blood Peripheral Pending 06/29/16 16:10 Aerobic Blood Culture Received Blood Peripheral Pending 06/29/16 16:10 Anaerobic Blood Culture Received Blood Peripheral Pending Assessment/Plan Problem List: (1) Substance abuse Status: Chronic (2) Foot swelling Status: Acute (3) Traumatic hematoma of foot Status: Acute Additional Plans & Procedures PLAN: After the appropriate consent form was obtained the left foot was blocked with 10 cc of 1% lidocaine plain. An 18-gauge needle was then into the swelling and approximately 2 cc of blood was drained from the area. No purulence was seen. Drainage was sent for culture and sensitivity. Patient was started on Bactrim DS and instructed to follow up in my office. If the problem should worsen she can return to the ED. Problem Qualifiers (1) Traumatic hematoma of foot: Qualified Code: S90.32XA - Traumatic hematoma of foot, left, initial encounter Pablo Portillo DPM June 29, 2016 17:30
[2016-06-29] MEDS ORDERED: CEPH-460 PO (17:40)
[2016-06-29] MEDS ORDERED: CLIN1CAP5 PO (17:40)
[2016-06-29 18:00] VITALS: BP 119/64; PULSE 74; RESP 16; O2SAT 95
[2016-06-29] MEDS: diphenhydrAMINE HCL 25 MG CAP PO ONE (18:21)
[2016-06-30] MEDS ORDERED: BUSP15TA PO (18:59)
[2016-06-30] MEDS ORDERED: SERO200T PO (18:59)
== END 2016-06-29 19:32 | disposition home or self-care (01) ==
LOC: PHEFT 14:59
DX: L08.9 Local infection of the skin and subcutaneous tissue, unspecified (principal); B96.1 Klebsiella pneumoniae [K. pneumoniae] as the cause of diseases classified elsewhere; B96.5 Pseudomonas (aeruginosa) (mallei) (pseudomallei) as the cause of diseases classified elsewhere; J45.909 Unspecified asthma, uncomplicated; J44.9 Chronic obstructive pulmonary disease, unspecified; I10 Essential (primary) hypertension; K21.9 Gastro-esophageal reflux disease without esophagitis; I25.2 Old myocardial infarction; F17.210 Nicotine dependence, cigarettes, uncomplicated; Z86.73 Personal history of transient ischemic attack (TIA), and cerebral infarction without residual deficits; Z23 Encounter for immunization
CPT/HCPCS: 10160; 73630; 80053; 83605; 85025; 87040; 87070; 87077; 87186; 87205; 90471; 90714; 96365; 96366; 96375; 96376; 99283; E0113; J1170; J1885; J2405; J3370; J7040

== ENCOUNTER 2016-06-30 18:43 | Inpatient (IN) | payer SELFPAY ==
[~2016-06-30] VITALS: Ht 162.6 cm; Wt 83.9 kg
[~2016-06-30 18:43] MED LIST changes: +CEPH-460 PO; +CLIN1CAP5 PO; -PROM25TA5 PO
[2016-06-30] MEDS ORDERED: SERO200T PO (18:59)
[2016-06-30] MEDS ORDERED: BUSP15TA PO (18:59)
[2016-06-30 19:05] VITALS: BP 159/102; PULSE 88; RESP 18; TEMP 99; O2SAT 95
--- NOTE | 2016-06-30 19:14 | PD ---
HPI Chief Complaint: Skin Problem Time Seen by Provider: 18:54 Travel History International Travel<30 days: No Contact w/Intl Traveler<30days: No Traveled to known affect area: No History of Present Illness HPI This 46-year-old female is complaining of pain in her left foot. A friend had attempted to inject Dilaudid in her foot about 7 days ago. She has had progressive swelling since then. She was seen in the emergency department yesterday. Culture of the foot was obtained and is reportedly growing gram- negative rods. Dr. Portillo came to see the patient in the ER and aspirated an area of swelling and got blood. The patient is to follow-up with Dr. Portillo. She says the pain has continued and a short time ago she started to have purulent drainage coming from the foot. She is not aware of fever. PFSH Past Medical History Asthma: Yes Autoimmune Disease: No Bipolar Disorder: Yes Anxiety: Yes Depression: Yes Heart Rhythm Problems: Yes (PALPITATIONS) Cancer: Yes (CERVICAL) Cardiac Catheterization: No Cardiovascular Problems: Yes High Cholesterol: No Congestive Heart Failure: No COPD: Yes Cerebrovascular Accident: Yes Diabetes: No Diminished Hearing: No Endocrine: No Gastrointestinal Disorders: Yes (COLITIS) GERD: Yes Genitourinary: Yes (UTI) Headaches: Yes Heparin Induced Thrombocytopen: No Herniated Disk: Yes Hypertension: Yes Immune Disorder: No Insomnia: Yes Kidney Stones: Yes Musculoskeletal: Yes (CHRONIC BACK PAIN) Neurologic: Yes (BRAIN INJURY) Psychiatric: Yes Reproductive: Yes Respiratory: Yes Immunizations Current: Yes Migraines: Yes Myocardial Infarction: Yes (2011) Seizures: Yes Thyroid Disease: No Ulcer: Yes Influenza Vaccination: No PNEUMOCCOCAL Vaccine (Year): 2 ?: Not LMP: 06/25/16 Menopausal: No : 10 Para: 6 Miscarriage: 3 : 1 Ectopic : Yes (1994) Ovarian Cysts: Yes Dilation and Curettage (D&C): Yes Tubal Ligation: Yes Past Surgical History Abdominal Surgery: Yes (appendectomy ) Appendectomy: Yes Cardiac Surgery: No Cholecystectomy: No (PT DENIES CHASITY) Coronary Artery Bypass Graft: No Ear Surgery: No Endocrine Surgery: No Eye Surgery: No Genitourinary Surgery: No Gynecologic Surgery: No Neurologic Surgery: Yes (HERNIATED LUMBAR DISCS ) Oral Surgery: No Thoracic Surgery: No Other Surgery: Yes (LEFT HAND SURGERY) Social History Alcohol Use: No Tobacco Use: Yes (1/2 ppd) Allergies-Medications (Allergen,Severity, Reaction): Coded Allergies: Sulfa (Verified Allergy, Severe, Rash, 06/30/16) *MDRO Multi-Drug Resistant Organism (Verified Adverse Reaction, Unknown, MRSA, 06/30/16) 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 Compazine (Verified Adverse Reaction, Unknown, ANGINA, 06/30/16) Magnesium Sulfate (Verified Adverse Reaction, Unknown, PRUITIC RASH, ) Terbutaline (Verified Adverse Reaction, Unknown, HEART RATE ELEVATES, ) Reported Meds & Prescriptions Reported Meds & Active Scripts Active Keflex (Cephalexin) 500 Mg Cap 500 Mg PO Q6H 10 Days Clindamycin (Clindamycin HCl) 150 Mg Cap 300 Mg PO Q6H 10 Days Gabapentin 600 Mg Tab 1,200 Mg PO BID Reported Seroquel (Quetiapine Fumarate) 200 Mg Tab 200 Mg PO BID Buspirone (Buspirone HCl) 15 Mg Tab 15 Mg PO TID Vistaril (Hydroxyzine Pamoate) 50 Mg Cap 100 Mg PO BID Review of Systems General / Constitutional: No: Fever, Chills Eyes: No: Diploplia, Blurred Vision HENT: No: Headaches, Vertigo Cardiovascular: No: Chest Pain or Discomfort, Palpitations Respiratory: No: Cough, Shortness of Breath Gastrointestinal: Positive: Nausea, No: Vomiting Genitourinary: No: Urgency, Frequency Musculoskeletal: Positive: Myalgias, Pain Skin: Positive Rash Neurologic: No: Weakness, Dizziness Psychiatric: No: Anxiety Hematologic/Lymphatic: No: Easy Bruising Physical Exam Narrative GENERAL: Well-developed female complaining of pain SKIN: Focused skin assessment warm/dry. HEAD: Atraumatic. Normocephalic. EYES: Pupils equal and round. No scleral icterus. No injection or drainage. ENT: No nasal bleeding or discharge. Mucous membranes pink and moist. NECK: Trachea midline. No JVD. CARDIOVASCULAR: Regular rate and rhythm. No murmur appreciated. RESPIRATORY: No accessory muscle use. Clear to auscultation. Breath sounds equal bilaterally. GASTROINTESTINAL: Abdomen soft, non-tender, nondistended. Hepatic and splenic margins not palpable. MUSCULOSKELETAL: No obvious deformities. No clubbing. No cyanosis. There is erythema and swelling on the dorsal surface of the left foot. There is some purulent drainage from a puncture wound on the dorsum of the foot NEUROLOGICAL: Awake and alert. No obvious cranial nerve deficits. Motor grossly within normal limits. Normal speech. PSYCHIATRIC: Appropriate mood and affect; insight and judgment normal. Data Data Last Documented VS Vital Signs Date Time Temp Pulse Resp B/P Pulse Ox O2 Delivery O2 Flow Rate FiO2 06/30/16 19:05 99.0 88 18 159/102 95 Orders Complete Blood Count With Diff (06/30/16 19:05) Basic Metabolic Panel (Bmp) (06/30/16 19:05) Wound Culture And Gram Stain (06/30/16 19:05) Sodium Chlor 0.9% 1000 Ml Inj (Ns 1000 M (06/30/16 19:15) Ondansetron Inj (Zofran Inj) (06/30/16 19:15) Hydromorphone Pf Inj (Dilaudid Pf Inj) (06/30/16 19:15) Lidocaine 1% Inj (50 Ml) (Xylocaine 1% I (06/30/16 19:15) Hydromorphone Pf Inj (Dilaudid Pf Inj) (06/30/16 20:15) Piperacil-Tazo 4.5 Gm Premix (Zosyn 4.5 (06/30/16 20:15) Vancomycin Inj (Vancomycin Inj) (06/30/16 20:15) Labs Laboratory Tests Test 06/30/16 19:20 White Blood Count 9.2 TH/MM3 Red Blood Count 4.06 MIL/MM3 Hemoglobin 10.2 GM/DL Hematocrit 31.9 % Mean Corpuscular Volume 78.6 FL Mean Corpuscular Hemoglobin 25.0 PG Mean Corpuscular Hemoglobin 31.8 % Concent Red Cell Distribution Width 15.1 % Platelet Count 327 TH/MM3 Mean Platelet Volume 8.9 FL Neutrophils (%) (Auto) 66.0 % Lymphocytes (%) (Auto) 21.4 % Monocytes (%) (Auto) 6.7 % Eosinophils (%) (Auto) 2.0 % Basophils (%) (Auto) 3.9 % Neutrophils # (Auto) 6.0 TH/MM3 Lymphocytes # (Auto) 2.0 TH/MM3 Monocytes # (Auto) 0.6 TH/MM3 Eosinophils # (Auto) 0.2 TH/MM3 Basophils # (Auto) 0.4 TH/MM3 CBC Comment DIFF FINAL Differential Comment Sodium Level 140 MEQ/L Potassium Level MEQ/L Chloride Level 105 MEQ/L Carbon Dioxide Level 26.8 MEQ/L Anion Gap 8 MEQ/L Blood Urea Nitrogen 9 MG/DL Creatinine 0.95 MG/DL Estimat Glomerular Filtration 64 ML/MIN Rate Random Glucose 97 MG/DL Calcium Level 8.6 MG/DL MDM Medical Decision Making Medical Screen Exam Complete: Yes Emergency Medical Condition: Yes Medical Record Reviewed: Yes Differential Diagnosis Differential includes soft tissue infection, abscess Narrative Course There is purulent drainage coming from the foot Incision and Drainage Was Done and Packing Was Inserted into the Wound. Patient Will Be Started on Zosyn and Vancomycin. A Culture That Was Sent Yesterday of the Foot Is Reportedly Growing Gram-Negative Rods. Patient has failed outpatient treatment and will be admitted Procedures Procedure Narrative After verbal consent for anesthesia was used to anesthetize the dorsum of the foot. An incision was made with moderate amount of purulent drainage. Approximately 8 cm of quarter-inch packing was inserted into the wound. Patient tolerated the procedure well Diagnosis Primary Impression: Infection of left foot Admitting Information Admitting Physician Requests: Admit Aureliano Abdi MD June 30, 2016 19:14
[2016-06-30] MEDS ORDERED: LIDOCAINE HCL 1% 50 ML VIAL INFIL ONE (19:15)
[2016-06-30] MEDS ORDERED: HYDROmorphone HCL PF 1 MG/ML VIAL IV PUSH ONE ×2 (19:15→20:15)
[2016-06-30] MEDS ORDERED: ONDANSETRON HCL 4 MG/2 ML VIAL IV PUSH ONE (19:15)
[2016-06-30] MEDS ORDERED: SODIUM CHLOR 0.9% 1000 ML INJ 1,000 ML IV ONE (19:15)
[2016-06-30 19:47] LABS: BASOPHIL # 0.4 TH/MM3 (0-0.2); BASOPHIL % 3.9 % (0.0-2.0); EOSINOPHIL # 0.2 TH/MM3 (0-0.4); HEMATOCRIT 31.9 % (35.0-46.0); HEMO FLAGS DIFF FINAL; LYMPH % 21.4 % (9.0-44.0); MEAN CELL VOLUME 78.6 FL (80.0-100.0); MEAN CORPUSCULAR HGB CONC 31.8 % (32.0-36.0); MONO % 6.7 % (0.0-8.0); PLATELET COUNT 327 TH/MM3 (150-450); RED BLOOD COUNT 4.06 MIL/MM3 (4.00-5.30); RED CELL DISTRIBUTION WIDTH 15.1 % (11.6-17.2); WHITE BLOOD COUNT 9.2 TH/MM3 (4.0-11.0)
[2016-06-30 19:51] LABS: BICARBONATE 26.8 MEQ/L (21.0-32.0)
[2016-06-30] MEDS ORDERED: VANCOMYCIN INJ 1,200 MG in SODIUM CHLOR 0.9% 250 ML INJ 250 ML IV ONE (20:15)
[2016-06-30] MEDS ORDERED: PIPERACIL-TAZO 4.5 GM PREMIX 100 ML IV ONE (20:15)
[2016-06-30 20:30] VITALS: BP 111/79; PULSE 74; RESP 18; O2SAT 95
[2016-06-30] MEDS ORDERED: IBUPROFEN 800 MG TAB PO PRN (20:30)
[2016-06-30] MEDS ORDERED: ACETAMINOPHEN 325 MG TAB PO PRN (20:30)
[2016-06-30] MEDS ORDERED: NALOXONE HCL 0.4 MG/ML AMP IV PRN (20:30)
[2016-06-30 21:30] VITALS: BP 123/88; PULSE 85; RESP 18; O2SAT 96
[2016-06-30] MEDS: SODIUM CHLORIDE 0.9% FLUSH 10 ML FLUSH IV FLUSH SCH (21:33)
[2016-06-30] MEDS: SODIUM CHLOR 0.45% 1000 ML INJ 1,000 ML IV SCH (21:33)
[2016-06-30 22:25] VITALS: BP 117/80; PULSE 70; RESP 18; O2SAT 95
[2016-06-30] MEDS: ACETAMINOPHEN/HYDROcodone 325 MG/5 MG TAB PO PRN (23:15)
[2016-07-01] VITALS: BP 128/98; PULSE 76; RESP 20; TEMP 97.3; O2SAT 99
[2016-07-01] MEDS: ACETAMINOPHEN/HYDROcodone 325 MG/5 MG TAB PO PRN ×5 (04:40→22:19)
[2016-07-01 07:52] LABS: AUTOMATED NEUTROPHIL # 3.7 TH/MM3 (1.8-7.7); BASOPHIL # 0.1 TH/MM3 (0-0.2); BASOPHIL % 1.3 % (0.0-2.0); EOSINOPHIL # 0.2 TH/MM3 (0-0.4); EOSINOPHIL % 2.8 % (0.0-4.0); HEMATOCRIT 27.6 % (35.0-46.0); HEMO FLAGS DIFF FINAL; LYMPH % 27.5 % (9.0-44.0); LYMPHOCYTE # 1.7 TH/MM3 (1.0-4.8); MEAN CELL VOLUME 79.1 FL (80.0-100.0); MEAN CORPUSCULAR HEMOGLOBIN 25.5 PG (27.0-34.0); MEAN CORPUSCULAR HGB CONC 32.3 % (32.0-36.0); NEUT % 59.4 % (16.0-70.0); PLATELET COUNT 240 TH/MM3 (150-450); RED BLOOD COUNT 3.48 MIL/MM3 (4.00-5.30); RED CELL DISTRIBUTION WIDTH 14.9 % (11.6-17.2); WHITE BLOOD COUNT 6.3 TH/MM3 (4.0-11.0)
[2016-07-01 07:55] LABS: POTASSIUM 3.7 MEQ/L (3.5-5.1)
[2016-07-01 08:00] VITALS: BP 110/74; PULSE 65; RESP 16; TEMP 97.1; O2SAT 96
[2016-07-01 08:09] LABS: BICARBONATE 27.7 MEQ/L (21.0-32.0)
--- NOTE | 2016-07-01 08:42 | MB ---
cc: DENNIS SAL DPM DATE OF CONSULTATION 06/30/2016 DATE OF 1970 CHIEF COMPLAINT Pain left foot, likely abscess. HISTORY OF PRESENT ILLNESS This is a 46-year-old female who a friend attempted to inject Dilaudid into her foot 5-7 days ago. She was trying to get relief from her ulcerative colitis. She does have a history rehab. The patient was seen by Podiatry on-call and there was aspiration that took place and blood was received. The patient was to followup as outpatient and the patient followed up one day later. Consult went to Dr. Portillo and he requested the On-call Podiatry take over the patient's care. Currently I am seeing the patient bedside. The foot is not worsening in appearance but pain is drastically worsening. The patient is having issues with weightbearing and moving of the toes but she does have feeling. She denies any obvious fever. PAST MEDICAL HISTORY 1. Positive for anxiety, depression. 2. Palpitations. 3. Cervical cancer. 4. Ulcerative colitis. 5. Chronic back pain documented in the ER note. 6. Myocardial infarction in 2011. PAST SURGICAL HISTORY 1. Appendectomy. 2. Herniated lumbar disks. 3. Left hand surgery. SOCIAL HISTORY She smokes half-pack per day. Recent history of injecting Dilaudid into the foot. Also history of multidrug resistant organism from 2010 in the arm, hip and the back. ALLERGIES COMPAZINE. MAGNESIUM. ACTIVE MEDICATIONS 1. Keflex. 2. Clindamycin. 3. Gabapentin. 4. Seroquel. 5. Buspirone. 6. Vistaril. CURRENT INPATIENT MEDICATIONS Reviewed. The patient is receiving - 1. Zosyn. 2. Vancomycin. PHYSICAL EXAMINATION VITAL SIGNS: Temperature is 97.3, pulse rate 76, respiratory rate 20, blood pressure 128/98. She is sating 99% on room air. GENERAL: This is an alert and oriented female I am seeing at bedside. She is missing teeth. She is tattooed. She is mildly obese. EXTREMITIES: The left lower extremity is examined. There is noted to be a bruised, red and semi-fluctuant dorsum of the foot with a linear incision that appears to be draining minimal serous type fluid. There is no odor. There is no soft tissue emphysema. Edema and erythema appears to be localized to the patient's dorsum of the foot. The patient is capable of dorsiflexion, plantar flexion. There is no sign of compartment syndrome or aggressive spread cellulitis. There is no sign of a necrotizing fasciitis. Pedal pulses are palpable, specifically the posterior tibialis. The dorsalis pedis is hard to palpate through the patient's edema. Sensation is intact to light touch and deep pressure. The right lower extremity is unremarkable. LABORATORY FINDINGS White blood cell is trending down 9.2 to 6.3, hemoglobin/hematocrit 8/27, platelet count is 240. Chem-7: Sodium is 140, potassium is pending, chloride 105, CO2 26.8, BUN is 9, creatinine 0.95, random glucose is 97. Culture is gram-negative inderjit; C&S is pending. IMAGING FINDINGS From June 29, foot x-ray with increased soft tissue envelope, no signs of foreign body. No obvious signs of bony erosion. No gas in the tissue. ASSESSMENT AND PLAN Infected left foot abscess versus hematoma recommendation is compression, elevation, warm compress. MRI is recommended to rule out deep abscess fluid collection. The patient was counseled on the possibility of needing a more expansile incision and drainage in the operative setting. She had questions regarding her routine medications. I would defer to medicine. I spoke with the medicine team regarding the patient's care, continued IV antibiotics. Possibly deep culture would be more beneficial. The patient did explain of note at that there is green drainage and the patient should continue a Pseudomonas type coverage./ HERMINIA Moran/LEE /7:57 AM /8:30 AM
[2016-07-01] MEDS: SODIUM CHLORIDE 0.9% FLUSH 10 ML FLUSH IV FLUSH SCH ×2 (09:04→21:00)
[2016-07-01] MEDS: SODIUM CHLOR 0.45% 1000 ML INJ 1,000 ML IV SCH ×2 (10:25→22:56)
[2016-07-01] MEDS: PIPERACIL-TAZO 3.375 GM PREMIX 50 ML IV SCH ×2 (10:25→16:59)
[2016-07-01 12:00] VITALS: BP 118/71; PULSE 62; RESP 18; TEMP 98; O2SAT 94
[2016-07-01] MEDS ORDERED: GADODIAMIDE PF 287 MG/ML 5 ML VIAL (for RAD MRI) IV ONE (12:49)
--- NOTE | 2016-07-01 13:30 | RADHPO ---
EXAM DATE/TIME: 07/01/2016 12:23 [facility] COMPARISON: No previous studies available for comparison. INDICATIONS : Abscess. Wound on dorsal aspect of left foot. CONTRAST: 15 cc Omniscan (gadodiamide) IV MEDICAL HISTORY : Hypertension. Cervical cancer. SURGICAL HISTORY : Appendectomy. Tubal ligation. I&D left foot. ENCOUNTER: Subsequent ACUITY: 3 day PAIN SCORE: 7/10 LOCATION: Left foot. TECHNIQUE: Multiplanar, multisequence MRI examination was performed without contrast and after the intravenous a dministration of gadolinium. FINDINGS: BONE/CARTILAGE: Bone marrow signal is homogeneous. Articular cartilage signal is within normal limits. TENDONS: All of the visualized tendons are intact. MISCELLANEOUS: Diffuse dorsal superficial soft tissue edema and enhancement. Apparent dorsal cutaneous ulceration or defect communicating with a 1.6 x 0.6 cm area of non-enhancement in the dorsal soft tissues indicati ng phlegmon or abscess. CONCLUSION: Diffuse dorsal superficial soft tissue enhancement and edema indicating cellulitis in the proper clin ical setting. Dorsal cutaneous ulceration or defect with sinus tract extending to 1.6 cm area of dors al soft tissue abscess or phlegmon. Aneesh Hickman MD on July 01, 2016 at 13:25 Board Certified Radiologist. This report was verified electronically.
[2016-07-01] MEDS ORDERED: ACETAMINOPHEN/HYDROcodone 325 MG/5 MG TAB PO PRN (14:00)
[2016-07-01] MEDS ORDERED: MORPHINE SULFATE 4 MG/ML INJ IV PUSH ONE (14:15)
--- NOTE | 2016-07-01 14:39 | HHI.HP ---
HPI Service [facility] Hospitalists Primary Care Physician Non-Staff Admission Diagnosis SOFT TISSUE INFECTION LEFT FOOT Diagnoses: Chief Complaint: Pain in left foot Travel History International Travel<30 Days: No Contact w/Intl Traveler <30 Da: No Traveled to Known Affected Are: No History of Present Illness This is a 46-year-old female with past medical history significant for IV drug abuse, chronic abdominal pain, who presents with [facility] complaining of pain in the left foot. The patient states that a friend attempted to inject Dilaudid in her foot about 7 days ago and since then she had progressive swelling, erythema and purulent drainage. The patient complains of extreme 10 over 10 pain in the left foot that the patient associated with fevers and chills at home. Denies diarrhea, states had nausea and vomiting, denies abdominal pain. Patient also denies chest pain or short of breath. Apparently the patient presented to the ED one day prior to this admission and had a foot culture obtained. Patient came back because symptoms worsened. Review of Systems As per history of present illness, other systems reviewed by me and negative Past Family Social History Past Medical History 1. Chronic abdominal pain. 2. IV drug abuse. 3. ? DM Past Surgical History 1. Appendectomy. 2. Laparoscopy for ectopic . 2. Colonoscopy. 4. I&D of left hand abscess. Reported Medications Gabapentin 600 Mg Tab 1,200 Mg PO BID Seroquel (Quetiapine Fumarate) 200 Mg Tab 200 Mg PO BID Buspirone (Buspirone HCl) 15 Mg Tab 15 Mg PO TID Vistaril (Hydroxyzine Pamoate) 50 Mg Cap 100 Mg PO BID Allergies: Coded Allergies: Sulfa (Verified Allergy, Severe, Rash, 06/30/16) *MDRO Multi-Drug Resistant Organism (Verified Adverse Reaction, Unknown, MRSA, 06/30/16) 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 Compazine (Verified Adverse Reaction, Unknown, ANGINA, 06/30/16) Magnesium Sulfate (Verified Adverse Reaction, Unknown, PRUITIC RASH, ) Terbutaline (Verified Adverse Reaction, Unknown, HEART RATE ELEVATES, ) Active Ordered Medications Current Medications Medications (Trade) Dose Ordered Sig/Tristan Route Start Time Stop Time Status Last Admin (02/24 NS 1000 ml Inj) 1,000 ml @ 75 mls/hr [id number] IV 06/30/16 20:16 07/01/16 10:25 (NS Flush) 2 ml UNSCH PRN IV FLUSH 06/30/16 20:30 (NS Flush) 2 ml BID IV FLUSH 06/30/16 21:00 07/01/16 09:04 (Tylenol) 650 mg Q4H PRN PO 06/30/16 20:30 (Zofran Inj) 4 mg Q6H PRN IVP 06/30/16 20:30 Naloxone HCl 0.4 mg 0.4 mg UNSCH PRN IV 06/30/16 20:30 Vancomycin HCl 1250 mg/Sodium Chloride 262.5 ml @ 262.5 mls/ hr Q24H IV 07/01/16 20:00 (Zosyn 3.375 Gm Premix) 50 ml @ 100 mls/hr Q8H IV 07/01/16 09:00 07/01/16 10:25 (Buspar) 15 mg TID PO 07/01/16 18:00 (Neurontin) 1,200 mg BID PO 07/01/16 21:00 (Vistaril) 100 mg BID PO 07/01/16 21:00 (SEROquel) 200 mg BID PO 07/01/16 21:00 ([place] 5-325 Mg) 1 tab Q4H PRN PO 07/01/16 14:00 UNV ([place] 5-325 Mg) 2 tab Q4H PRN PO 07/01/16 14:00 UNV Family History Positive for diabetes and colon cancer. Social History Patient denies alcohol intake. Patient smokes half a pack per day. Patient smokes marijuana. Patient denies current IV drug use except for the one time she used it 7 days ago for a flare of her abdominal pain. Physical Exam Vital Signs Vital Signs Date Time Temp Pulse Resp B/P Pulse Ox O2 Delivery O2 Flow Rate FiO2 07/01/16 12:00 98.0 62 18 118/71 94 07/01/16 10:04 18 07/01/16 08:00 97.1 65 16 110/74 96 07/01/16 00:00 97.3 76 20 128/98 99 06/30/16 22:25 70 18 117/80 95 Room Air 06/30/16 21:30 85 18 123/88 96 Room Air 06/30/16 21:00 18 06/30/16 20:30 74 18 111/79 95 Room Air 06/30/16 19:05 99.0 88 18 159/102 95 06/30/16 19:01 88 16 Physical Exam GENERAL: This is a well-nourished, well-developed patient, in moderate distress due to pain. No respiratory distress. SKIN: No rashes, ecchymoses or lesions. Cool and dry. HEAD: Atraumatic. Normocephalic. No temporal or scalp tenderness. EYES: Pupils equal round and reactive. Extraocular motions intact. No scleral icterus. No injection or drainage. ENT: Nose without bleeding, purulent drainage or septal hematoma. Throat without erythema, tonsillar hypertrophy or exudate. Uvula midline. Airway patent. NECK: Trachea midline. No JVD or lymphadenopathy. Supple, nontender, no meningeal signs. CARDIOVASCULAR: Regular rate and rhythm without murmurs, gallops, or rubs. RESPIRATORY: Clear to auscultation. Breath sounds equal bilaterally. No wheezes , rales, or rhonchi. GASTROINTESTINAL: Abdomen soft, non-tender, nondistended. No hepato-splenomegaly , or palpable masses. No guarding. MUSCULOSKELETAL: Extremities without clubbing, cyanosis, or edema. No joint tenderness, effusion, or edema noted. No calf tenderness. Negative Homans sign bilaterally. Left foot has swelling and is dressed and wrapped. Dressing is C/ D/I. NEUROLOGICAL: Awake and alert. Cranial nerves II through XII intact. Motor and sensory grossly within normal limits. Five out of 5 muscle strength in all muscle groups. Normal speech. Laboratory Laboratory Tests Test 06/30/16 07/01/16 19:20 07:30 White Blood Count 9.2 6.3 Red Blood Count 4.06 3.48 Hemoglobin 10.2 8.9 Hematocrit 31.9 27.6 Mean Corpuscular Volume 78.6 79.1 Mean Corpuscular Hemoglobin 25.0 25.5 Mean Corpuscular Hemoglobin 31.8 32.3 Concent Red Cell Distribution Width 15.1 14.9 Platelet Count 327 240 Mean Platelet Volume 8.9 8.5 Neutrophils (%) (Auto) 66.0 59.4 Lymphocytes (%) (Auto) 21.4 27.5 Monocytes (%) (Auto) 6.7 9.0 Eosinophils (%) (Auto) 2.0 2.8 Basophils (%) (Auto) 3.9 1.3 Neutrophils # (Auto) 6.0 3.7 Lymphocytes # (Auto) 2.0 1.7 Monocytes # (Auto) 0.6 0.6 Eosinophils # (Auto) 0.2 0.2 Basophils # (Auto) 0.4 0.1 CBC Comment DIFF FINAL DIFF FINAL Differential Comment Sodium Level 140 142 Potassium Level 3.7 Chloride Level 105 107 Carbon Dioxide Level 26.8 27.7 Anion Gap 8 7 Blood Urea Nitrogen 9 8 Creatinine 0.95 0.81 Estimat Glomerular Filtration 64 77 Rate Random Glucose 97 103 Calcium Level 8.6 7.6 Date/Time Procedure Status Source Growth 06/30/16 19:22 Gram Stain - Final Resulted Wound Foot 06/30/16 19:22 Wound Culture Resulted Wound Foot Pending Result Diagram: 07/01/1630 07/01/16 0730 Imaging Last Impressions Foot MRI 07/01/16 0000 Signed Impressions: Service Date/Time: Friday, July 01, 2016 12:23 - CONCLUSION: Diffuse dorsal superficial soft tissue enhancement and edema indicating cellulitis in the proper clinical setting. Dorsal cutaneous ulceration or defect with sinus tract extending to 1.6 cm area of dorsal soft tissue abscess or phlegmon. Aneesh Hickman MD Reviewed by me Assessment and Plan Problem List: (1) Infection of left foot ICD Code: L08.9 Status: Acute Plan: Admit the patient to the medical floor Continue IV vancomycin and IV Zosyn Pain control with oral [place] and IV Toradol, I will give 1 dose of IV morphine now. MRI showed cellulitis and abscess of the left foot, no osteomyelitis Wound cultures is growing gram-negative rods, however wound culture of the foot obtained on 06/29/16 grew Klebsiella pneumonia, serenity marcescens and gram- negative rods. ID consultation (2) Bipolar disorder with moderate depression ICD Code: F31.32 Status: Chronic Plan: Home medications including Vistaril, Seroquel and buspirone. (3) Neuropathic pain ICD Code: M79.2 Status: Acute Plan: Continue gabapentin. Seems to be stable. (4) Tobacco abuse ICD Code: Z72.0 Status: Chronic Plan: Advised smoking cessation. Will Rx a nicotine patch. (5) Substance abuse ICD Code: F19.10 Status: Chronic Plan: Advised against illegal drug use. The patient tends to minimize her drug problem. However upon review of previous hospital visits, there are several hospital visits for abdominal pain and it seems that the patient might have an ongoing problem of IV drug abuse. Assessment and Plan GI prophylaxis: Place on PPI. Prophylaxis: Heparin subcutaneously. Code Status Full code Discussed Condition With Patient. Physician Certification 2 Midnight Certification Type: Admission for Inpatient Services Order for Inpatient Services The services are ordered in accordance with Medicare regulations or non- Medicare payer requirements, as applicable. In the case of services not specified as inpatient-only, they are appropriately provided as inpatient services in accordance with the 2-midnight benchmark. Estimated LOS (days): 2 days is the estimated time the patient will need to remain in the hospital, assuming treatment plan goals are met and no additional complications. Post-Hospital Plan: Not yet determined Attila Sagastume MD July 01, 2016 14:39
[2016-07-01 16:00] VITALS: BP 133/86; PULSE 68; RESP 18; TEMP 98.9; O2SAT 96
[2016-07-01] MEDS: SODIUM CHLORIDE 0.9% FLUSH 10 ML FLUSH IV FLUSH PRN (16:03)
[2016-07-01] MEDS: HEPARIN SODIUM - SQ 10,000 UNITS/ML VIAL SQ SCH ×2 (16:07→22:19)
[2016-07-01] MEDS: busPIRone HCL 5 MG TAB PO SCH (16:12)
[2016-07-01] MEDS: KETOROLAC TROMETHAMINE 60 MG/2 ML (IM) VIAL IM PRN ×2 (16:13→22:31)
[2016-07-01] MEDS: NICOTINE 21 MG/24 HR PATCH T-DERMAL SCH (17:02)
[2016-07-01 20:00] VITALS: BP 121/95; PULSE 65; RESP 18; TEMP 97.8; O2SAT 94
[2016-07-01] MEDS ORDERED: REMOVE OLD PATCH T-DERMAL SCH (21:00)
[2016-07-01] MEDS: VANCOMYCIN INJ 1,250 MG in SODIUM CHLOR 0.9% 250 ML INJ 250 ML IV SCH (22:17)
[2016-07-01] MEDS: GABAPENTIN 400 MG CAP PO SCH (22:18)
[2016-07-01] MEDS: QUEtiapine FUMARATE 200 MG TAB PO SCH (22:18)
[2016-07-01] MEDS: ONDANSETRON HCL 4 MG/2 ML VIAL IVP PRN (22:50)
[2016-07-02] VITALS (7 sets, daily range): BP systolic 125–186; BP diastolic 88–117; PULSE 59–81; RESP 14–20; TEMP 96.5–98; O2SAT 92–100
[2016-07-02] MEDS: PIPERACIL-TAZO 3.375 GM PREMIX 50 ML IV SCH ×3 (01:32→18:15)
[2016-07-02] MEDS: SODIUM CHLOR 0.45% 1000 ML INJ 1,000 ML IV SCH (06:12)
[2016-07-02] MEDS: HEPARIN SODIUM - SQ 10,000 UNITS/ML VIAL SQ SCH ×3 (06:12→21:34)
[2016-07-02] MEDS: ACETAMINOPHEN/HYDROcodone 325 MG/5 MG TAB PO PRN (06:14)
[2016-07-02] MEDS ORDERED: LACTATED RINGER'S 1000 ML INJ 1,000 ML ONE (07:12)
[2016-07-02] MEDS ORDERED: RESP: ALBUTEROL CONC 2.5 MG/0.5 ML NEB ONE (07:12)
[2016-07-02] MEDS ORDERED: FAMOTIDINE 20 MG/2 ML VIAL ONE (07:12)
[2016-07-02] MEDS ORDERED: BUPIVACAINE HCL PF 0.25% 30 ML VIAL ONE (07:13)
[2016-07-02] MEDS ORDERED: MIDAZOLAM HCL 2 MG/2 ML VIAL ONE (07:24)
[2016-07-02] MEDS: ONDANSETRON HCL 4 MG/2 ML VIAL IVP PRN ×2 (07:26→14:58)
--- NOTE | 2016-07-02 08:23 | HHI.PR ---
Immediate Post Op Note Procedure Date: July 02, 2016 Pre Op Diagnosis: Left foot abscess Post Op Diagnosis: same Surgeon: Anders Gottlieb Shear Operator Automatic(s): scrub Procedure: Incision drainage left foot Findings: no tracking to bone appears to be in the soft tissue deep fascia only Complications: none Specimen(s) removed: deep wd cx Estimated blood loss: 75mL Anesthesia: General, Local Drains: Other Fluids: see anethesia IVF Tourniquet time (min at mmHg) none Patient to: Other Patient Condition: Fair Implant/Devices: SEE IMPLANT LOG (if applicable) Date/Time of Procedure: SEE SURGICAL CARE RECORD Anders Gottlieb [facility] July 02, 2016 08:23
[2016-07-02] MEDS ORDERED: *MEPERIDINE 25 MG INJ VIAL PERIprocedural Use ONLY ONE (08:43)
[2016-07-02] MEDS ORDERED: *Lactated Ringer's INJ 1,000 ML ONE (08:45)
[2016-07-02] MEDS: REMOVE OLD PATCH T-DERMAL SCH (09:00)
[2016-07-02] MEDS: NICOTINE 21 MG/24 HR PATCH T-DERMAL SCH (09:39)
[2016-07-02] MEDS: SODIUM CHLORIDE 0.9% FLUSH 10 ML FLUSH IV FLUSH SCH ×2 (09:41→21:00)
[2016-07-02] MEDS: busPIRone HCL 5 MG TAB PO SCH ×3 (09:41→18:15)
[2016-07-02] MEDS: GABAPENTIN 400 MG CAP PO SCH ×2 (09:41→21:21)
[2016-07-02] MEDS: QUEtiapine FUMARATE 200 MG TAB PO SCH ×2 (09:41→21:33)
[2016-07-02] MEDS ORDERED: KETOROLAC TROMETHAMINE 30 MG/ML (IVP) VIAL IV PUSH PRN (10:00)
[2016-07-02] MEDS ORDERED: MORPHINE SULFATE 4 MG/ML INJ IV PUSH ONE (10:00)
[2016-07-02] MEDS ORDERED: fentaNYL CITRATE 250 MCG/5 ML AMP ONE (10:37)
[2016-07-02 10:44] LABS: AUTOMATED NEUTROPHIL # 4.8 TH/MM3 (1.8-7.7); BASOPHIL # 0.1 TH/MM3 (0-0.2); EOSINOPHIL # 0.1 TH/MM3 (0-0.4); EOSINOPHIL % 1.6 % (0.0-4.0); HEMATOCRIT 27.9 % (35.0-46.0); HEMO FLAGS DIFF FINAL; LYMPHOCYTE # 1.2 TH/MM3 (1.0-4.8); MEAN CELL VOLUME 79.9 FL (80.0-100.0); MEAN CORPUSCULAR HEMOGLOBIN 25.5 PG (27.0-34.0); MEAN CORPUSCULAR HGB CONC 31.9 % (32.0-36.0); MONO % 1.8 % (0.0-8.0); NEUT % 76.6 % (16.0-70.0); PLATELET COUNT 239 TH/MM3 (150-450); RED BLOOD COUNT 3.49 MIL/MM3 (4.00-5.30); RED CELL DISTRIBUTION WIDTH 15.1 % (11.6-17.2); WHITE BLOOD COUNT 6.3 TH/MM3 (4.0-11.0)
[2016-07-02 10:54] LABS: CHLORIDE 108 MEQ/L (98-107); SODIUM (NA) 141 MEQ/L (136-145)
[2016-07-02 11:16] LABS: ALKALINE PHOSPHATASE 112 U/L (45-117); ALT (GPT) 16 U/L (10-53); ANION GAP 6 MEQ/L (5-15); AST (GOT) 21 U/L (15-37); BICARBONATE 26.9 MEQ/L (21.0-32.0); BLOOD UREA NITROGEN 8 MG/DL (7-18); GLOMERULAR FILTRATION RATE 69 ML/MIN (>89); TOTAL BILIRUBIN ADULT 0.3 MG/DL (0.2-1.0)
[2016-07-02] MEDS: KETOROLAC TROMETHAMINE 30 MG/ML (IVP) VIAL IV PUSH PRN ×2 (12:05→18:47)
--- NOTE | 2016-07-02 12:09 | HHI.PR ---
Subjective Remarks patient is sp incision and drainage of the left foot Complains of severe pain of the left foot, describes it as throbbing Denies chest pain or shortness of breath Stable vital signs Denies fevers or chills Objective Vitals Vital Signs Date Time Temp Pulse Resp B/P Pulse Ox O2 Delivery O2 Flow Rate FiO2 07/02/16 09:15 74 07/02/16 09:15 98.1 74 16 121/68 94 Nasal Cannula 2 07/02/16 09:00 68 16 118/82 95 Nasal Cannula 2 07/02/16 08:45 69 16 128/85 94 Nasal Cannula 2 07/02/16 08:30 71 16 121/83 97 Nasal Cannula 2 07/02/16 08:29 98.2 81 16 139/91 93 Nasal Cannula 2 07/02/16 08:29 81 07/02/16 06:48 98.0 65 14 135/92 92 07/02/16 00:00 97.6 59 20 125/89 94 07/01/16 20:00 97.8 65 18 121/95 94 07/01/16 17:25 18 07/01/16 16:15 16 07/01/16 16:00 98.9 68 18 133/86 96 I/O 07/01/16 07/01/16 07/01/16 07/02/16 07/02/16 07/02/16 07:00 15:00 23:00 07:00 15:00 23:00 Intake Total 1337 ml 450 ml 1044 ml 743 ml 1400 ml Output Total 600 ml 75 ml Balance 1337 ml -150 ml 1044 ml 743 ml 1325 ml Intake Oral 450 ml 60 ml 0 ml IV Total 1337 ml 1044 ml 683 ml Other 1400 ml Output Urine Total 600 ml Estimated Blood Loss 75 ml # Voids 3 4 1 # Bowel Movements 0 Result Diagram: 07/02/16 1030 07/02/16 1030 Imaging Last Impressions Foot MRI 07/01/16 0000 Signed Impressions: Service Date/Time: Friday, July 01, 2016 12:23 - CONCLUSION: Diffuse dorsal superficial soft tissue enhancement and edema indicating cellulitis in the proper clinical setting. Dorsal cutaneous ulceration or defect with sinus tract extending to 1.6 cm area of dorsal soft tissue abscess or phlegmon. Aneesh Hickman MD Objective Remarks GENERAL: This is a well-nourished, well-developed patient, in moderate distress due to pain. No respiratory distress. SKIN: No rashes, ecchymoses or lesions. Cool and dry. HEAD: Atraumatic. Normocephalic. No temporal or scalp tenderness. EYES: Pupils equal round and reactive. Extraocular motions intact. No scleral icterus. No injection or drainage. ENT: Nose without bleeding, purulent drainage or septal hematoma. Throat without erythema, tonsillar hypertrophy or exudate. Uvula midline. Airway patent. NECK: Trachea midline. No JVD or lymphadenopathy. Supple, nontender, no meningeal signs. CARDIOVASCULAR: Regular rate and rhythm without murmurs, gallops, or rubs. RESPIRATORY: Clear to auscultation. Breath sounds equal bilaterally. No wheezes , rales, or rhonchi. GASTROINTESTINAL: Abdomen soft, non-tender, nondistended. No hepato-splenomegaly , or palpable masses. No guarding. MUSCULOSKELETAL: Extremities without clubbing, cyanosis, or edema. No joint tenderness, effusion, or edema noted. No calf tenderness. Negative Homans sign bilaterally. Left foot has swelling and is dressed and wrapped. Dressing is C/ D/I. NEUROLOGICAL: Awake and alert. Cranial nerves II through XII intact. Motor and sensory grossly within normal limits. Five out of 5 muscle strength in all muscle groups. Normal speech. Procedures Status post incision and drainage of the left foot on 07/02/16. Medications and IVs Current Medications Medications (Trade) Dose Ordered Sig/Tristan Route Start Time Stop Time Status Last Admin (02/24 NS 1000 ml Inj) 1,000 ml @ 75 mls/hr [id number] IV 06/30/16 20:16 07/02/16 06:12 (NS Flush) 2 ml UNSCH PRN IV FLUSH 06/30/16 20:30 07/01/16 16:03 (NS Flush) 2 ml BID IV FLUSH 06/30/16 21:00 07/02/16 09:41 (Tylenol) 650 mg Q4H PRN PO 06/30/16 20:30 (Zofran Inj) 4 mg Q6H PRN IVP 06/30/16 20:30 07/02/16 07:26 Naloxone HCl 0.4 mg 0.4 mg UNSCH PRN IV 06/30/16 20:30 Vancomycin HCl 1250 mg/Sodium Chloride 262.5 ml @ 262.5 mls/ hr Q24H IV 07/01/16 20:00 07/01/16 22:17 (Zosyn 3.375 Gm Premix) 50 ml @ 100 mls/hr Q8H IV 07/01/16 09:00 07/02/16 01:32 (Buspar) 15 mg TID PO 07/01/16 18:00 07/02/16 09:41 (Neurontin) 1,200 mg BID PO 07/01/16 21:00 07/02/16 09:41 (Vistaril) 100 mg BID PO 07/01/16 21:00 07/02/16 09:40 (SEROquel) 200 mg BID PO 07/01/16 21:00 07/02/16 09:41 (Heparin Inj) 5,000 units Q8HR SQ 07/01/16 14:15 07/02/16 06:12 (Habitrol 21 Mg Patch.24 Hr) 1 patch DAILY T-DERMAL 07/01/16 17:00 07/02/16 09:39 Miscellaneous Information 1 DAILY T-DERMAL 07/02/16 09:00 07/02/16 09:00 (Toradol Inj) 15 mg Q6H PRN IV PUSH 07/02/16 10:00 07/07/16 09:59 (Toradol Inj) 30 mg Q6HR PRN IV PUSH 07/02/16 10:00 07/07/16 09:59 Urinary Catheter: No Vascular Central Line Catheter: No A/P Problem List: (1) Infection of left foot ICD Code: L08.9 Status: Acute Plan: Admit the patient to the medical floor Continue IV vancomycin and IV Zosyn MRI showed cellulitis and abscess of the left foot, no osteomyelitis Will provide pain control with IV Toradol and IV morphine for breakthrough pain. wound culture of the foot obtained on 06/29/16 grew Klebsiella pneumonia, serenity marcescens, Pseudomonas aeruginosa. Blood cultures is growing gram- negative inderjit. Wound culture on this admission is growing some bedtime resistance, consider pneumonia, Pseudomonas aeruginosa and strep viridans. Podiatry and ID consulted, appreciate recommendations. Antibiotics as per ID. Patient is status post incision and drainage of left foot abscess. (2) Bipolar disorder with moderate depression ICD Code: F31.32 Status: Chronic Plan: Home medications including Vistaril, Seroquel and buspirone. Seems to be stable. (3) Neuropathic pain ICD Code: M79.2 Status: Acute Plan: Continue gabapentin. Seems to be stable. (4) Tobacco abuse ICD Code: Z72.0 Status: Chronic Plan: Advised smoking cessation. Continue nicotine patch (5) Substance abuse ICD Code: F19.10 Status: Chronic Plan: Advised against illegal drug use. The patient tends to minimize her drug problem. However upon review of previous hospital visits, there are several hospital visits for abdominal pain and it seems that the patient might have an ongoing problem of IV drug abuse. Assessment and Plan DVT prophylaxis: Heparin subcutaneous Attila Sagastume MD July 02, 2016 12:08
--- NOTE | 2016-07-02 12:30 | MB ---
cc: RHIANNON STRICKLAND MD DATE OF CONSULTATION 07/02/[address] Bowers REASON FOR CONSULTATION Gram-negative bacteremia. IV drug user. HISTORY OF PRESENT ILLNESS This is a 46-year-old white female who presented to the emergency department on 06/30 because of erythema of the left foot along with pain after she injected Dilaudid into the foot. The patient was seen in the emergency department on June 29 and a blood culture was taken and it has gram-negative inderjit in one bottle of four. The wound culture from the foot, which was taken on 06/29, came back with Klebsiella, Serratia and Pseudomonas. She underwent further testing with an MRI of the foot on 07/01 that showed diffuse dorsal superficial soft tissue enhancement and edema indicating cellulitis. There is also a defect in the sinus tract extending to 1.6 cm area of the dorsal soft tissue felt to be an abscess versus phlegmon. The patient was taken to surgery by podiatry and she underwent I&D of the foot today. New cultures were taken and results are pending. The repeat culture of the foot obtained in the evening of 06/30/16 showed Serratia Klebsiella, Pseudomonas and viridans Strep group. White blood cell count is normal. She states that she gets occasional chills off and on. Otherwise, she has no complaints except for pain in the left foot. The patient reports that she had used IV drugs approximately one and a half years ago and she had gone to rehab and was doing well. She states that she came to the emergency department with abdominal pain and was sent home and her pain continued and therefore she had one of her friends who had drugs inject into her foot and "May have missed" and she developed this infection in the foot. PAST MEDICAL HISTORY 1. Ulcerative colitis for IV drug use 2. Appendectomy 3. Colonoscopy 4. Laparoscopy for ectopic 5. Left hand abscess 6. History sepsis due to E-coli in December 2015. ALLERGIES SULFA, TERBUTALINE, MAGNESIUM SULFATE, AND COMPAZINE. MEDICATIONS. 1. Neurontin 2. Vistaril 3. Seroquel 4. Vancomycin 5. Piperacillin/Tazobactam 6. Nicotine patch 7. BuSpar SOCIAL HISTORY The patient smokes a half-a-pack of cigarettes a day. No alcohol use. Positive IV drug. Patient is unemployed. FAMILY HISTORY Noncontributory REVIEW OF SYSTEMS Negative on 10-point review except for pain in the left foot. PHYSICAL EXAMINATION This is a well-developed female who is in no acute distress. She is awake and alert and oriented. VITAL SIGNS: Include temperature 98.1, BP 121/68, respirations 16, heart rate 74. HEENT: Head is atraumatic. Extraocular movements grossly intact, pupils reactive to light. No icterus. Oropharynx no visible lesions. NECK: Supple without adenopathy. LUNGS: Clear breath sounds bilateral. HEART: Regular S1-S2. No murmurs or rubs or gallops. ABDOMEN: Bowel sounds present, soft, nontender. RECTAL: Not performed. EXTREMITIES: The left foot has a surgical dressing in place. There is blood soaking the overlying gauze at the dorsal aspect of the foot. The patient is status post I&D this a.m. SKIN: No rash. NEUROLOGIC: Nonfocal. PSYCH: The patient calm and cooperative. LABORATORY DATA WBC 6.3, platelets 239, 76% neutrophils. Creatinine 0.89, BUN 8, sodium 141. IMPRESSION 1. Left foot abscess. Previous culture with mixed bacteria. New culture is pending from surgery this morning. 2. Bacteremia due to gram-negative bacteria. Identity of the bacteria is not yet available. I have spoken to microbiology and they report that the SALLY's identity may be available tomorrow. 3. IV drug use with abscess formation into the left foot from IV drug injection. RECOMMENDATIONS 1. Continue piperacillin/Tazobactam 2. Continue vancomycin 3. Follow up on the new cultures from surgery. 4. I will follow the cultures. I cannot make the determination on antibiotics unless the final cultures become available. The patient very likely need to be kept on IV antibiotics for treatment of this infection. However, further Determination will need to be made once the cultures become available and depending on her clinical situation. Thank you for this consultation. I will follow her progress with you and make further recommendations on followup. Rhiannon Strickland MD FD/ANTONINA /11:45 AM /12:14 PM LOLIS
[2016-07-02] MEDS ORDERED: PROPOFOL 200 MG/20 ML AMP IV ONE (12:47)
[2016-07-02] MEDS: MORPHINE SULFATE 4 MG/ML INJ IV PUSH PRN ×3 (14:59→21:36)
--- NOTE | 2016-07-02 19:02 | EC ---
Study Study Date:07/02/2016 STUDY CONCLUSIONS SUMMARY - Left ventricle: The cavity size was normal. Wall thickness was normal. Systolic function was normal. The estimated ejection fraction was 60%. Wall motion was normal; there were no regional wall motion abnormalities. - Mitral valve: Mild regurgitation. If LV function is below 40, please consider prescribing an ACEI or ARB or document rationale for non-use. PROCEDURE DATA STUDY STATUS: Elective. Procedure: Transthoracic echocardiography. Image quality was good. Scanning was performed from the parasternal, apical, and subcostal acoustic windows. Study completion: The patient tolerated the procedure well. Transthoracic echocardiography. M-mode, complete 2D, complete spectral Doppler, and color Doppler. Height: Height: 64in. Weight: Weight: 172.6lb. Body mass index: BMI: 29.7kg/m^2. Body surface area: BSA: 1.84m^2. Patient status: Inpatient. CARDIAC ANATOMY LEFT VENTRICLE: The cavity size was normal. Wall thickness was normal. Systolic function was normal. The estimated ejection fraction was 60%. Wall motion was normal; there were no regional wall motion abnormalities. AORTIC VALVE: Trileaflet; normal thickness leaflets. Doppler: Transvalvular velocity was within the normal range. There was no stenosis. No regurgitation. Valve area: 2.53cm^2 (Vmax). Indexed valve area: 1.38cm^2/m^2 (Vmax). AORTA: Aortic root: The aortic root was normal in size. MITRAL VALVE: Structurally normal valve. Doppler: Transvalvular velocity was within the normal range. There was no evidence for stenosis. Mild regurgitation. Peak gradient: 4mm Hg (D). LEFT ATRIUM: The atrium was normal in size. RIGHT VENTRICLE: The cavity size was normal. Wall thickness was normal. PULMONIC VALVE: Doppler: Transvalvular velocity was within the normal range. There was no evidence for stenosis. No regurgitation. TRICUSPID VALVE: Structurally normal valve. Doppler: Transvalvular velocity was within the normal range. No regurgitation. PULMONARY ARTERY: The main pulmonary artery was normal-sized. Systolic pressure was within the normal range. RIGHT ATRIUM: The atrium was normal in size. PERICARDIUM: There was no pericardial effusion. SYSTEMIC VEINS: Inferior vena cava: The vessel was normal in size. Patient weight: 172.6lb _Ejection fraction:_ 65-75% _Fractional shortening:_ 32% up to 5Kg 5-11.5Kg 11.6-22.9Kg 23-45Kg 45-57Kg Aortic Root 7-13 <17 13-22 17-27 17-27 LA diam 6-13 <23 24-38 33-47 37-40 RVID 10-17 7-15 7-15 7-18 8-17 LVIDd 12-22 <32 24-38 33-47 37-40 LVPW 2-4 3-6 5-7 6-8 7-8 IVS 2-4 3-6 5-7 6-8 7-8 BASIC MEASUREMENTS ADULT NORMAL Left ventricle LV internal dimension, ED, chordal *52.8 mm 43-52 level, PLAX LV internal dimension, ES, chordal 35.5 mm 23-38 level, PLAX Fractional shortening, chordal level, 33 % >29 PLAX LV posterior wall thickness, ED 9.2 mm IVS/LVPW ratio, ED 1 <1.3 Ventricular septum Septal thickness, ED 9.17 mm Aortic valve Leaflet separation 21 mm 15-26 Right ventricle RV internal dimension, ED, PLAX 20.9 mm 19-38 BASIC MEASUREMENTS ADULT NORMAL Aortic valve Leaflet separation 21 mm 15-26 Aorta Root diameter, ED 26 mm 20-37 Left atrium Anterior-posterior dimension, ES 30 mm 19-40 Anterior-posterior dimension index, ES 1.63 cm/m^2 <2.2 LA/aortic root ratio 1.15 DOPPLER MEASUREMENTS ADULT NORMAL Aortic valve Peak velocity, S 133 cm/s Valve area, Vmax 2.53 cm^2 Valve area index, Vmax 1.38 cm^2/m^2 Mitral valve Peak E-wave velocity 104 cm/s Peak A-wave velocity 65.6 cm/s Deceleration time 225 ms 150-230 Peak gradient, D 4 mm Hg Peak E/A ratio 1.6 Maximal regurgitant velocity 342 cm/s Pulmonic valve Peak velocity, S 99.1 cm/s LEGEND: Mean values are shown as u=mean value. Asterisk (*) pickering values outside specified normal range. Prepared and signed by Rene Hinson [id number]
[2016-07-02] MEDS: VANCOMYCIN INJ 1,250 MG in SODIUM CHLOR 0.9% 250 ML INJ 250 ML IV SCH (21:33)
[2016-07-03] VITALS: BP 132/75; PULSE 67; RESP 19; TEMP 96.9; O2SAT 98
[2016-07-03] MEDS: PIPERACIL-TAZO 3.375 GM PREMIX 50 ML IV SCH ×4 (00:25→23:32)
[2016-07-03] MEDS: ONDANSETRON HCL 4 MG/2 ML VIAL IVP PRN ×4 (00:26→20:33)
[2016-07-03] MEDS: MORPHINE SULFATE 4 MG/ML INJ IV PUSH PRN ×7 (00:27→23:28)
[2016-07-03] MEDS: KETOROLAC TROMETHAMINE 30 MG/ML (IVP) VIAL IV PUSH PRN ×4 (01:33→20:34)
[2016-07-03] MEDS: SODIUM CHLOR 0.45% 1000 ML INJ 1,000 ML IV SCH (07:08)
[2016-07-03] MEDS: HEPARIN SODIUM - SQ 10,000 UNITS/ML VIAL SQ SCH ×3 (07:08→20:35)
[2016-07-03 07:45] LABS: AUTOMATED NEUTROPHIL # 5.5 TH/MM3 (1.8-7.7); BASOPHIL # 0.1 TH/MM3 (0-0.2); BASOPHIL % 0.8 % (0.0-2.0); EOSINOPHIL # 0.1 TH/MM3 (0-0.4); EOSINOPHIL % 0.8 % (0.0-4.0); HEMATOCRIT 28.3 % (35.0-46.0); HEMO FLAGS DIFF FINAL; LYMPH % 26.2 % (9.0-44.0); LYMPHOCYTE # 2.1 TH/MM3 (1.0-4.8); MEAN CELL VOLUME 81.4 FL (80.0-100.0); MEAN CORPUSCULAR HEMOGLOBIN 26.1 PG (27.0-34.0); MONO % 3.3 % (0.0-8.0); NEUT % 68.9 % (16.0-70.0); PLATELET COUNT 246 TH/MM3 (150-450); RED BLOOD COUNT 3.47 MIL/MM3 (4.00-5.30); RED CELL DISTRIBUTION WIDTH 14.9 % (11.6-17.2); WHITE BLOOD COUNT 8.1 TH/MM3 (4.0-11.0)
[2016-07-03 07:58] LABS: CHLORIDE 107 MEQ/L (98-107); POTASSIUM 3.9 MEQ/L (3.5-5.1); SODIUM (NA) 141 MEQ/L (136-145)
[2016-07-03 08:00] VITALS: BP 160/95; PULSE 48; RESP 18; TEMP 97.2; O2SAT 97
[2016-07-03 08:03] LABS: ANION GAP 6 MEQ/L (5-15); BLOOD UREA NITROGEN 11 MG/DL (7-18); MAGNESIUM 2.2 MG/DL (1.5-2.5)
[2016-07-03 08:06] LABS: ALT (GPT) 17 U/L (10-53); AST (GOT) 16 U/L (15-37); GLOMERULAR FILTRATION RATE 67 ML/MIN (>89)
[2016-07-03 08:07] LABS: TOTAL BILIRUBIN ADULT 0.4 MG/DL (0.2-1.0)
[2016-07-03 08:09] LABS: ALKALINE PHOSPHATASE 116 U/L (45-117)
[2016-07-03] MEDS: QUEtiapine FUMARATE 200 MG TAB PO SCH ×2 (08:35→20:35)
[2016-07-03] MEDS: busPIRone HCL 5 MG TAB PO SCH ×3 (08:35→17:35)
[2016-07-03] MEDS: GABAPENTIN 400 MG CAP PO SCH ×2 (08:36→20:35)
[2016-07-03] MEDS: NICOTINE 21 MG/24 HR PATCH T-DERMAL SCH (08:36)
[2016-07-03] MEDS: SODIUM CHLORIDE 0.9% FLUSH 10 ML FLUSH IV FLUSH SCH ×2 (08:36→20:36)
[2016-07-03] MEDS: REMOVE OLD PATCH T-DERMAL SCH (08:37)
[2016-07-03] MEDS ORDERED: MAGNESIUM HYDROXIDE SUSP 30 ML CUP PO ONE (10:30)
[2016-07-03] MEDS ORDERED: DOCUSATE SODIUM 50 MG/SENNA 8.6 MG TAB PO PRN (10:30)
[2016-07-03] MEDS ORDERED: MAGNESIUM HYDROXIDE SUSP 30 ML CUP PO PRN (10:30)
--- NOTE | 2016-07-03 10:34 | HHI.PR ---
Subjective Remarks Patient seen in follow-up for left foot abscess She complains of persistent pain. Morphine IV is helping. She will like to keep it for another day. She also complains of swelling in that leg. She reports constipation. Blood pressure has been intermittently elevated. Objective Vitals Vital Signs Date Time Temp Pulse Resp B/P Pulse Ox O2 Delivery O2 Flow Rate FiO2 07/03/16 09:29 18 07/03/16 09:29 18 07/03/16 08:00 97.2 48 18 160/95 97 07/03/16 00:00 96.9 67 19 132/75 98 07/02/16 20:00 97.2 63 20 186/117 100 07/02/16 16:44 97.1 70 18 146/102 99 07/02/16 12:18 96.5 67 19 130/88 94 I/O 07/02/16 07/02/16 07/02/16 07/03/16 07/03/16 07/03/16 06:59 14:59 22:59 06:59 14:59 22:59 Intake Total 743 ml 1400 ml 620 ml Output Total 75 ml 600 ml Balance 743 ml 1325 ml 20 ml Intake Oral 60 ml 0 ml 620 ml IV Total 683 ml Other 1400 ml Output Urine Total 600 ml Estimated Blood Loss 75 ml # Voids 4 1 7 3 # Bowel Movements 0 Result Diagram: 07/03/16 0725 07/03/16 0725 Imaging Last Impressions Foot MRI 07/01/16 0000 Signed Impressions: Service Date/Time: Friday, July 01, 2016 12:23 - CONCLUSION: Diffuse dorsal superficial soft tissue enhancement and edema indicating cellulitis in the proper clinical setting. Dorsal cutaneous ulceration or defect with sinus tract extending to 1.6 cm area of dorsal soft tissue abscess or phlegmon. Aneesh Hickman MD Objective Remarks GENERAL: This is a well-nourished, well-developed patient, in no apparent distress. CARDIOVASCULAR: Normal rate and regular rhythm without murmurs, gallops, or rubs. RESPIRATORY: Good respiratory efforts. Breath sounds equal and clear to auscultation bilaterally. GASTROINTESTINAL: Abdomen soft, non-tender, non-distended. Normal active bowel sounds MUSCULOSKELETAL: Left foot is wrapped with a clean dressing. Neurovascularly intact at the toes. Patient apprehensive and very tender to palpation. NEURO: Alert & Oriented x4 to person, place, time, situation. Moves all ext x4 PSYCH: Appropriate mood and affect. Procedures Status post incision and drainage of the left foot on 07/02/16. A/P Problem List: (1) Infection of left foot ICD Code: L08.9 Status: Acute Plan: Continue IV vancomycin and IV Zosyn MRI showed cellulitis and abscess of the left foot, no osteomyelitis Continue with IV Toradol and IV morphine for breakthrough pain. Hopefully can transition to oral pain medication tomorrow. wound culture of the foot obtained on 06/29/16 grew Klebsiella pneumonia, serenity marcescens, Pseudomonas aeruginosa. Blood cultures is growing gram- negative inderjit. Wound culture on this admission is growing some bedtime resistance, consider pneumonia, Pseudomonas aeruginosa and strep viridans. Appreciate podiatry following. Patient is status post incision and drainage of left foot abscess. ID has been consulted. . (2) Bipolar disorder with moderate depression ICD Code: F31.32 Status: Chronic Plan: Home medications including Vistaril, Seroquel and buspirone. Seems to be stable. (3) Neuropathic pain ICD Code: M79.2 Status: Acute Plan: Continue gabapentin. Stable. (4) Tobacco abuse ICD Code: Z72.0 Status: Chronic Plan: Advised smoking cessation. Continue nicotine patch (5) Substance abuse ICD Code: F19.10 Status: Chronic Plan: Patient counseled against illegal drug use. She would benefit from inpatient rehabilitation. However I'm not convinced that she is willing at this time. Usha Vanessa MD July 03, 2016 10:34
[2016-07-03 12:00] VITALS: BP 184/115; PULSE 89; RESP 20; TEMP 95.6; O2SAT 97
[2016-07-03] MEDS: cloNIDine HCL 0.1 MG TAB PO PRN ×2 (12:29→20:35)
[2016-07-03 13:00] VITALS: BP 154/105
--- NOTE | 2016-07-03 13:28 | MP ---
cc: DENNIS SAL M DATE OF SURGERY 07/02/2016 PREOPERATIVE DIAGNOSIS Left foot abscess. POSTOPERATIVE DIAGNOSIS Left foot abscess. PROCEDURES PERFORMED Incision and drainage with debridement deep left foot. COMPLICATIONS None. SPECIMEN Deep wound culture taken. ESTIMATED BLOOD LOSS Less than 75 mL. ANESTHESIA General with local ankle block. DRAINS 1/4-inch Iodoform packing. FLUIDS See Anesthesia report. TOURNIQUET TIME None. PLAN OF ACTIVITY Return to floor, monitor wound and continue to monitor sepsis. Blood cultures. JUSTIFICATION FOR PROCEDURE A 46-year-old female with recent history of injecting into the foot. She developed a severe pain and swelling. MRI confirmed possible abscess. The patient is also having a polymicrobial infection. The patient was educated on the severity of the infection that may cause of sepsis syndrome including spread to multiple organs. We devised a plan to move forward with incision, drainage and debridement to prevent further seeding of sepsis. The patient understood she may need more surgery at a later date including but not limited to foot/ankle incision and drainage, debridement, possible skin grafting. No guarantees were given or implied regarding the outcome. PROCEDURE IN DETAIL Under mild sedation the patient was brought into the operating room, placed on the operating table in the supine position. Following the induction of general anesthesia, a proximal anterior ankle block took place utilizing 10 cc of 0.25% Marcaine plain. The patient's foot was then scrubbed, prepped and draped in the usual aseptic fashion. The foot was elevated and examined. There was noted to be severe edema and erythema of the dorsum of the foot; however, no soft tissue emphysema, crepitus or signs of ischemia. A linear incision was made being careful to avoid the dorsalis pedis in its distribution over the dorsum of foot. Sharp and blunt dissection was carried down through deep adipose and tissue. There was noted to be serous type fluid; however, no obvious distinct foreign body. There is no communication of the abscess cavity to the patient's metatarsals or midfoot. Tendon sheaths were exposed. There was no obvious tracking along the tendon sheath. The dorsum of the foot was explored medial and laterally clearing up any signs of serous of purulent type fluid. Pulse lavage was then used at this time to cleanse the area. The wound was then packed open with one retention suture, a bulky bandage placed over the dorsum of the foot. Capillary fill time to the digits within normal limits. The patient was transferred from OR to PACU with all vital signs stable. The patient will continue IV antibiotics. Packing will be removed within the next 1-2 days and I will advise further. HERMINIA Moran/LEE /8:24 AM /1:13 PM
[2016-07-03 16:00] VITALS: BP 156/104; PULSE 66; RESP 20; TEMP 96; O2SAT 98
--- NOTE | 2016-07-03 16:23 | HHI.IDPN ---
Note Infectious Disease Note Patient complains of pain ion the left foot. No chills or nausea. Wound culture from surgery pending. Blood culture from 06/29 has Stenotrophomonas. PAST MEDICAL HISTORY 1. Ulcerative colitis for IV drug use 2. Appendectomy 3. Colonoscopy 4. Laparoscopy for ectopic 5. Left hand abscess 6. History sepsis due to E-coli in December 2015. ALLERGIES SULFA, TERBUTALINE, MAGNESIUM SULFATE, AND COMPAZINE. MEDICATIONS. Medications (Trade) Dose Ordered Sig/Tristan Route PRN Reason Start Time Stop Time Status Last Admin Dose Admin Sodium Chloride (NS Flush) 2 ml UNSCH PRN IV FLUSH FLUSH AFTER USING IV ACCESS 06/30/16 20:30 07/01/16 16:03 Sodium Chloride (NS Flush) 2 ml BID IV FLUSH 06/30/16 21:00 07/03/16 08:36 Acetaminophen (Tylenol) 650 mg Q4H PRN PO TEMP > 100.4 06/30/16 20:30 Ondansetron HCl (Zofran Inj) 4 mg Q6H PRN IVP NAUSEA OR VOMITING 06/30/16 20:30 07/03/16 14:38 Naloxone HCl 0.4 mg 0.4 mg UNSCH PRN IV SEE LABEL COMMENTS 06/30/16 20:30 Vancomycin HCl 1250 mg/Sodium Chloride 262.5 ml @ 262.5 mls/ hr Q24H IV 07/01/16 20:00 07/02/16 21:33 Piperacillin Sod/ Tazobactam Sod (Zosyn 3.375 Gm Premix) 50 ml @ 100 mls/hr Q8H IV 07/01/16 09:00 07/03/16 09:29 Buspirone HCl (Buspar) 15 mg TID PO 07/01/16 18:00 07/03/16 14:37 Gabapentin (Neurontin) 1,200 mg BID PO 07/01/16 21:00 07/03/16 08:36 Hydroxyzine Pamoate (Vistaril) 100 mg BID PO 07/01/16 21:00 07/03/16 08:35 Quetiapine Fumarate (SEROquel) 200 mg BID PO 07/01/16 21:00 07/03/16 08:35 Heparin Sodium (Porcine) (Heparin Inj) 5,000 units Q8HR SQ 07/01/16 14:15 07/03/16 14:37 Nicotine (Habitrol 21 Mg Patch.24 Hr) 1 patch DAILY T-DERMAL 07/01/16 17:00 07/03/16 08:36 Miscellaneous Information 1 DAILY T-DERMAL 07/02/16 09:00 07/03/16 08:37 Ketorolac Tromethamine (Toradol Inj) 15 mg Q6H PRN IV PUSH PAIN SCALE 1 TO 4 07/02/16 10:00 07/07/16 09:59 Ketorolac Tromethamine (Toradol Inj) 30 mg Q6HR PRN IV PUSH PAIN SCALE 5 TO 10 07/02/16 10:00 07/07/16 09:59 07/03/16 14:38 Morphine Sulfate (Morphine Inj) 2 mg Q3H PRN IV PUSH BREAKTHROUGH PAIN 07/02/16 14:15 07/03/16 14:37 Senna/Docusate Sodium (Ramona-Colace) 1 tab BID PRN PO CONSTIPATION 07/03/16 10:30 Magnesium Hydroxide (Milk Of Magnhanh [place]) 30 ml DAILY PRN PO for Severe Constipation 07/03/16 10:30 Clonidine (Catapres) 0.1 mg Q6H PRN PO SBP> OR = 170, DBP> OR = 100 07/03/16 10:30 07/03/16 12:29 SOCIAL HISTORY The patient smokes a half-a-pack of cigarettes a day. No alcohol use. Positive IV drug. Patient is unemployed. OBJECTIVE: Vital Signs Date Time Temp Pulse Resp B/P Pulse Ox O2 Delivery O2 Flow Rate FiO2 07/03/16 13:00 154/105 07/03/16 12:00 95.6 89 20 184/115 97 07/03/16 09:29 18 07/03/16 09:29 18 07/03/16 08:00 97.2 48 18 160/95 97 07/03/16 00:00 96.9 67 19 132/75 98 07/02/16 20:00 97.2 63 20 186/117 100 07/02/16 16:44 97.1 70 18 146/102 99 07/02/16 07/02/16 07/03/16 15:00 23:00 07:00 Intake Total 1400 ml 620 ml Output Total 75 ml 600 ml Balance 1325 ml 20 ml Intake Oral 0 ml 620 ml Other 1400 ml Output Urine Total 600 ml Estimated Blood Loss 75 ml # Voids 1 7 3 Laboratory Tests Test 07/02/16 07/03/16 10:30 07:25 White Blood Count 6.3 TH/MM3 8.1 TH/MM3 Red Blood Count 3.49 MIL/MM3 3.47 MIL/MM3 Hemoglobin 8.9 GM/DL 9.1 GM/DL Hematocrit 27.9 % 28.3 % Mean Corpuscular Volume 79.9 FL 81.4 FL Mean Corpuscular Hemoglobin 25.5 PG 26.1 PG Mean Corpuscular Hemoglobin 31.9 % 32.0 % Concent Red Cell Distribution Width 15.1 % 14.9 % Platelet Count 239 TH/MM3 246 TH/MM3 Mean Platelet Volume 8.2 FL 9.0 FL Neutrophils (%) (Auto) 76.6 % 68.9 % Lymphocytes (%) (Auto) 19.0 % 26.2 % Monocytes (%) (Auto) 1.8 % 3.3 % Eosinophils (%) (Auto) 1.6 % 0.8 % Basophils (%) (Auto) 1.0 % 0.8 % Neutrophils # (Auto) 4.8 TH/MM3 5.5 TH/MM3 Lymphocytes # (Auto) 1.2 TH/MM3 2.1 TH/MM3 Monocytes # (Auto) 0.1 TH/MM3 0.3 TH/MM3 Eosinophils # (Auto) 0.1 TH/MM3 0.1 TH/MM3 Basophils # (Auto) 0.1 TH/MM3 0.1 TH/MM3 CBC Comment DIFF FINAL DIFF FINAL Differential Comment Laboratory Tests Test 07/02/16 07/03/16 10:30 07:25 Sodium Level 141 MEQ/L 141 MEQ/L Potassium Level 4.0 MEQ/L 3.9 MEQ/L Chloride Level 108 MEQ/L 107 MEQ/L Carbon Dioxide Level 26.9 MEQ/L 28.0 MEQ/L Anion Gap 6 MEQ/L 6 MEQ/L Blood Urea Nitrogen 8 MG/DL 11 MG/DL Creatinine 0.89 MG/DL 0.91 MG/DL Estimat Glomerular Filtration 69 ML/MIN 67 ML/MIN Rate Random Glucose 114 MG/DL 103 MG/DL Calcium Level 7.9 MG/DL 8.2 MG/DL Total Bilirubin 0.3 MG/DL 0.4 MG/DL Aspartate Amino Transf 21 U/L 16 U/L (AST/SGOT) Alanine Aminotransferase 16 U/L 17 U/L (ALT/SGPT) Alkaline Phosphatase 112 U/L 116 U/L Total Protein 6.6 GM/DL 6.4 GM/DL Albumin 2.8 GM/DL 2.8 GM/DL Phosphorus Level 2.9 MG/DL Magnesium Level 2.2 MG/DL Microbiology Date/Time Procedure Status Source Growth 06/30/16 19:22 Gram Stain - Final Complete Wound Foot 06/30/16 19:22 Wound Culture - Final Complete Serratia Marcescens Klebsiella Pneumoniae Pseudomonas Aeruginosa Viridans Streptococcus Grp 07/02/16 08:06 Gram Stain - Final Resulted Wound Foot 07/02/16 08:06 Wound Culture - Preliminary Resulted Wound Foot NO GROWTH IN 24 HOURS. 07/02/16 08:06 Acid Fast Stain - Final Resulted Wound Foot NO ACID FAST BACILLI SEEN 07/02/16 08:06 Mycobacterial Culture Resulted Wound Foot Pending 07/02/16 08:06 Fungal Smear - Final Resulted Wound Foot NO FUNGAL ELEMENTS SEEN. 07/02/16 08:06 Fungal Culture Resulted Wound Foot Pending 07/02/16 10:15 Aerobic Blood Culture - Preliminary Resulted Blood Peripheral NO GROWTH IN 1 DAY 07/02/16 10:15 Anaerobic Blood Culture - Preliminary Resulted Blood Peripheral NO GROWTH IN 1 DAY 07/02/16 10:30 Aerobic Blood Culture - Preliminary Resulted Blood Peripheral NO GROWTH IN 1 DAY 07/02/16 10:30 Anaerobic Blood Culture - Preliminary Resulted Blood Peripheral NO GROWTH IN 1 DAY PHYSICAL EXAMINATION GENERAL: No acute distress. She is awake and alert and oriented. HEENT: No icterus. Oropharynx no visible lesions. NECK: Supple without adenopathy. LUNGS: Clear breath sounds. HEART: Regular S1-S2. No murmurs or rubs or gallops. ABDOMEN: Bowel sounds present, soft, nontender. EXTREMITIES: The left foot has surgical dressing in place. (+) edema. SKIN: No rash. NEUROLOGIC: Nonfocal. PSYCH: Calm and cooperative. IMPRESSION 1. Left foot abscess. Previous culture with mixed bacteria. 2. Bacteremia due to Stenotrophomonas. Patient does not appear toxic. 3. IV drug use with iatrogenic abscess formation into the left foot from IV drug injection. RECOMMENDATIONS 1. Continue piperacillin/Tazobactam 2. Stop vancomycin 3. Add PO Levaquin. Monitor response. Stevie Arriola MD July 03, 2016 16:23 Stevie Arriola MD July 03, 2016 16:23
[2016-07-03] MEDS: LEVOFLOXACIN 750 MG TAB PO SCH (19:11)
[2016-07-03 20:00] VITALS: BP 185/113; PULSE 78; RESP 18; TEMP 98.9; O2SAT 90
[2016-07-04] VITALS: BP 142/89; PULSE 58; RESP 16; TEMP 97.6; O2SAT 92
[2016-07-04] MEDS: ONDANSETRON HCL 4 MG/2 ML VIAL IVP PRN ×4 (02:29→20:34)
[2016-07-04] MEDS: KETOROLAC TROMETHAMINE 30 MG/ML (IVP) VIAL IV PUSH PRN ×3 (02:29→20:34)
[2016-07-04] MEDS: MORPHINE SULFATE 4 MG/ML INJ IV PUSH PRN ×9 (02:30→23:36)
[2016-07-04 04:00] VITALS: BP 148/93; PULSE 55; RESP 18; TEMP 98.1; O2SAT 97
[2016-07-04] MEDS: HEPARIN SODIUM - SQ 10,000 UNITS/ML VIAL SQ SCH ×3 (05:31→22:00)
--- NOTE | 2016-07-04 07:21 | PD.POD ---
Subjective Pain score: 5 Remarks Left foot pain is somewhat improved, she wants rehab and to go clean Past Med/Surg/Social History Past Medical History Cardiovascular: REPORTS HX OF: Myocardial infarction Gastrointestinal: REPORTS HX OF: Irritable bowel syndrome Neurologic: REPORTS HX OF: Stroke Psychiatric: REPORTS HX OF: Bipolar disorder Social History Smoking Status: Current Every Day Smoker Objective Vital Signs Vital Signs Date Time Temp Pulse Resp B/P Pulse Ox O2 Delivery O2 Flow Rate FiO2 07/04/16 04:00 98.1 55 18 148/93 97 07/04/16 00:00 97.6 58 16 142/89 92 07/03/16 20:00 98.9 78 18 185/113 90 07/03/16 16:00 96.0 66 20 156/104 98 07/03/16 13:00 154/105 07/03/16 12:00 95.6 89 20 184/115 97 07/03/16 09:29 18 07/03/16 09:29 18 07/03/16 08:00 97.2 48 18 160/95 97 Coded Allergies: Sulfa (Verified Allergy, Severe, Rash, 06/30/16) *MDRO Multi-Drug Resistant Organism (Verified Adverse Reaction, Unknown, MRSA, 06/30/16) 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 Compazine (Verified Adverse Reaction, Unknown, ANGINA, 06/30/16) Magnesium Sulfate (Verified Adverse Reaction, Unknown, PRUITIC RASH, ) Terbutaline (Verified Adverse Reaction, Unknown, HEART RATE ELEVATES, ) Medications and IVs Administered Medications Medications (Trade) Dose Ordered Sig/Tristan Route PRN Reason Start Time Stop Time Status Last Admin Dose Admin Sodium Chloride (NS Flush) 2 ml UNSCH PRN IV FLUSH FLUSH AFTER USING IV ACCESS 06/30/16 20:30 07/01/16 16:03 Sodium Chloride (NS Flush) 2 ml BID IV FLUSH 06/30/16 21:00 07/03/16 20:36 Ondansetron HCl 4 mg 4 mg Q6H PRN IVP NAUSEA OR VOMITING 06/30/16 20:30 07/04/16 02:29 Piperacillin Sod/ Tazobactam Sod (Zosyn 3.375 Gm Premix) 50 ml @ 100 mls/hr Q8H IV 07/01/16 09:00 07/03/16 23:32 Buspirone HCl (Buspar) 15 mg TID PO 07/01/16 18:00 07/03/16 17:35 Gabapentin (Neurontin) 1,200 mg BID PO 07/01/16 21:00 07/03/16 20:35 Hydroxyzine Pamoate (Vistaril) 100 mg BID PO 07/01/16 21:00 07/03/16 20:35 Quetiapine Fumarate (SEROquel) 200 mg BID PO 07/01/16 21:00 07/03/16 20:35 Heparin Sodium (Porcine) (Heparin Inj) 5,000 units Q8HR SQ 07/01/16 14:15 07/04/16 05:31 Nicotine (Habitrol 21 Mg Patch.24 Hr) 1 patch DAILY T-DERMAL 07/01/16 17:00 07/03/16 08:36 Miscellaneous Information 1 DAILY T-DERMAL 07/02/16 09:00 07/03/16 08:37 Ketorolac Tromethamine (Toradol Inj) 30 mg Q6HR PRN IV PUSH PAIN SCALE 5 TO 10 07/02/16 10:00 07/07/16 09:59 07/04/16 02:29 Morphine Sulfate (Morphine Inj) 2 mg Q3H PRN IV PUSH BREAKTHROUGH PAIN 07/02/16 14:15 07/04/16 05:32 Clonidine (Catapres) 0.1 mg Q6H PRN PO SBP> OR = 170, DBP> OR = 100 07/03/16 10:30 07/03/16 20:35 Levofloxacin (Levaquin) 750 mg DAILY PO 07/03/16 18:00 07/03/16 19:11 Other Results Laboratory Tests Test 07/02/16 07/03/16 10:30 07:25 White Blood Count 6.3 TH/MM3 8.1 TH/MM3 Red Blood Count 3.49 MIL/MM3 3.47 MIL/MM3 Hemoglobin 8.9 GM/DL 9.1 GM/DL Hematocrit 27.9 % 28.3 % Mean Corpuscular Volume 79.9 FL 81.4 FL Mean Corpuscular Hemoglobin 25.5 PG 26.1 PG Mean Corpuscular Hemoglobin 31.9 % 32.0 % Concent Red Cell Distribution Width 15.1 % 14.9 % Platelet Count 239 TH/MM3 246 TH/MM3 Mean Platelet Volume 8.2 FL 9.0 FL Neutrophils (%) (Auto) 76.6 % 68.9 % Lymphocytes (%) (Auto) 19.0 % 26.2 % Monocytes (%) (Auto) 1.8 % 3.3 % Eosinophils (%) (Auto) 1.6 % 0.8 % Basophils (%) (Auto) 1.0 % 0.8 % Neutrophils # (Auto) 4.8 TH/MM3 5.5 TH/MM3 Lymphocytes # (Auto) 1.2 TH/MM3 2.1 TH/MM3 Monocytes # (Auto) 0.1 TH/MM3 0.3 TH/MM3 Eosinophils # (Auto) 0.1 TH/MM3 0.1 TH/MM3 Basophils # (Auto) 0.1 TH/MM3 0.1 TH/MM3 CBC Comment DIFF FINAL DIFF FINAL Differential Comment Laboratory Tests Test 07/02/16 07/03/16 10:30 07:25 Sodium Level 141 MEQ/L 141 MEQ/L Potassium Level 4.0 MEQ/L 3.9 MEQ/L Chloride Level 108 MEQ/L 107 MEQ/L Carbon Dioxide Level 26.9 MEQ/L 28.0 MEQ/L Anion Gap 6 MEQ/L 6 MEQ/L Blood Urea Nitrogen 8 MG/DL 11 MG/DL Creatinine 0.89 MG/DL 0.91 MG/DL Estimat Glomerular Filtration 69 ML/MIN 67 ML/MIN Rate Random Glucose 114 MG/DL 103 MG/DL Calcium Level 7.9 MG/DL 8.2 MG/DL Total Bilirubin 0.3 MG/DL 0.4 MG/DL Aspartate Amino Transf 21 U/L 16 U/L (AST/SGOT) Alanine Aminotransferase 16 U/L 17 U/L (ALT/SGPT) Alkaline Phosphatase 112 U/L 116 U/L Total Protein 6.6 GM/DL 6.4 GM/DL Albumin 2.8 GM/DL 2.8 GM/DL Phosphorus Level 2.9 MG/DL Magnesium Level 2.2 MG/DL Microbiology Date/Time Procedure Status Source Growth 07/02/16 08:06 Gram Stain - Final Resulted Wound Foot 07/02/16 08:06 Wound Culture - Preliminary Resulted Wound Foot NO GROWTH IN 24 HOURS. 07/02/16 08:06 Acid Fast Stain - Final Resulted Wound Foot NO ACID FAST BACILLI SEEN 07/02/16 08:06 Mycobacterial Culture Resulted Wound Foot Pending 07/02/16 08:06 Fungal Smear - Final Resulted Wound Foot NO FUNGAL ELEMENTS SEEN. 07/02/16 08:06 Fungal Culture Resulted Wound Foot Pending 07/02/16 10:15 Aerobic Blood Culture - Preliminary Resulted Blood Peripheral NO GROWTH IN 1 DAY 07/02/16 10:15 Anaerobic Blood Culture - Preliminary Resulted Blood Peripheral NO GROWTH IN 1 DAY 07/02/16 10:30 Aerobic Blood Culture - Preliminary Resulted Blood Peripheral NO GROWTH IN 1 DAY 07/02/16 10:30 Anaerobic Blood Culture - Preliminary Resulted Blood Peripheral NO GROWTH IN 1 DAY Physical Exam Remarks Left foot packing intact serosanguineous drainage, moderate edema redness of the dorsum of the foot no skin necrosis no ascending redness beyond foot good ROM of digits pulses intact. Assessment & Plan A/P Left foot abscess. SP I and D 5-10 Reviewed progress some improvement. packing removed, continue to monitor wound. Will FU 1-2 days. Anders Alberto DPM July 04, 2016 07:21
[2016-07-04 07:58] LABS: HEMATOCRIT 30.8 % (35.0-46.0); MEAN CELL VOLUME 80.7 FL (80.0-100.0); MEAN CORPUSCULAR HEMOGLOBIN 25.7 PG (27.0-34.0); MEAN CORPUSCULAR HGB CONC 31.9 % (32.0-36.0); PLATELET COUNT 239 TH/MM3 (150-450); RED BLOOD COUNT 3.81 MIL/MM3 (4.00-5.30); RED CELL DISTRIBUTION WIDTH 15.4 % (11.6-17.2); REVIEW FLAG FINAL
[2016-07-04 08:00] LABS: POTASSIUM 3.9 MEQ/L (3.5-5.1)
[2016-07-04 08:03] LABS: BICARBONATE 28.7 MEQ/L (21.0-32.0)
[2016-07-04] MEDS: cloNIDine HCL 0.1 MG TAB PO PRN ×2 (08:32→20:24)
[2016-07-04] MEDS: GABAPENTIN 400 MG CAP PO SCH ×2 (08:32→20:26)
[2016-07-04] MEDS: QUEtiapine FUMARATE 200 MG TAB PO SCH ×2 (08:32→20:25)
[2016-07-04] MEDS: busPIRone HCL 5 MG TAB PO SCH ×3 (08:32→17:44)
[2016-07-04] MEDS: LEVOFLOXACIN 750 MG TAB PO SCH (08:32)
[2016-07-04] MEDS: NICOTINE 21 MG/24 HR PATCH T-DERMAL SCH (08:33)
[2016-07-04] MEDS: SODIUM CHLORIDE 0.9% FLUSH 10 ML FLUSH IV FLUSH SCH ×2 (08:34→20:23)
[2016-07-04] MEDS: REMOVE OLD PATCH T-DERMAL SCH (08:38)
[2016-07-04 08:55] VITALS: BP 169/115; PULSE 68; RESP 16; TEMP 96.3; O2SAT 96
--- NOTE | 2016-07-04 11:07 | HHI.PR ---
Subjective Remarks Patient reports diarrhea this morning. She reports overall she is not feeling well with abdominal cramps. She reports the pain in the foot is persistent but controlled with the medication. Objective Vitals Vital Signs Date Time Temp Pulse Resp B/P Pulse Ox O2 Delivery O2 Flow Rate FiO2 07/04/16 10:08 18 07/04/16 08:55 96.3 68 16 169/115 96 07/04/16 08:43 18 07/04/16 04:00 98.1 55 18 148/93 97 07/04/16 00:00 97.6 58 16 142/89 92 07/03/16 20:00 98.9 78 18 185/113 90 07/03/16 16:00 96.0 66 20 156/104 98 07/03/16 13:00 154/105 07/03/16 12:00 95.6 89 20 184/115 97 I/O 07/03/16 07/03/16 07/03/16 07/04/16 07/04/16 07/04/16 07:00 15:00 23:00 07:00 15:00 23:00 Intake Total 3000 ml 112 ml Balance 3000 ml 112 ml Intake Oral 1400 ml 0 ml IV Total 1600 ml 112 ml # Voids 3 5 2 # Bowel Movements 1 2 Result Diagram: 07/04/16 0743 07/04/16 0743 Objective Remarks GENERAL: This is a well-nourished, well-developed patient, in no apparent distress. CARDIOVASCULAR: Normal rate and regular rhythm without murmurs, gallops, or rubs. RESPIRATORY: Good respiratory efforts. Breath sounds equal and clear to auscultation bilaterally. GASTROINTESTINAL: Abdomen soft, non-tender, non-distended. Normal active bowel sounds MUSCULOSKELETAL: Left foot is wrapped with a clean dressing. Neurovascularly intact at the toes. Patient apprehensive and very tender to palpation. NEURO: Alert & Oriented x4 to person, place, time, situation. Moves all ext x4 PSYCH: Appropriate mood and affect. Procedures Status post incision and drainage of the left foot on 07/02/16. A/P Problem List: (1) Infection of left foot ICD Code: L08.9 Status: Acute Plan: Continue IV vancomycin and IV Zosyn MRI showed cellulitis and abscess of the left foot, no osteomyelitis Continue with IV Toradol and IV morphine for breakthrough pain. Hopefully can transition to oral pain medication tomorrow. wound culture of the foot obtained on 06/29/16 grew Klebsiella pneumonia, serenity marcescens, Pseudomonas aeruginosa. Blood cultures is growing gram- negative inderjit. Wound culture on this admission is growing some bedtime resistance, consider pneumonia, Pseudomonas aeruginosa and strep viridans. Appreciate podiatry following. Patient is status post incision and drainage of left foot abscess. Infectious disease following. Vancomycin discontinued. Continue Zosyn. Levaquin added. (2) Bipolar disorder with moderate depression ICD Code: F31.32 Status: Chronic Plan: Home medications including Vistaril, Seroquel and buspirone. Seems to be stable. (3) Neuropathic pain ICD Code: M79.2 Status: Acute Plan: Continue gabapentin. Stable. (4) Tobacco abuse ICD Code: Z72.0 Status: Chronic Plan: Advised smoking cessation. Continue nicotine patch (5) Substance abuse ICD Code: F19.10 Status: Chronic Plan: Patient counseled against illegal drug use. She is agreeable to go back to rehabilitation it [place]. She will need a ride. Case management will assist. (6) Diarrhea ICD Code: R19.7 Status: Acute Plan: Will check C. difficile. Could be related to antibiotics. Usha Vanessa MD July 04, 2016 11:07
[2016-07-04] MEDS: LISINOPRIL 5 MG TAB PO SCH (11:21)
[2016-07-04] MEDS: PIPERACIL-TAZO 3.375 GM PREMIX 50 ML IV SCH ×2 (11:34→17:45)
[2016-07-04 13:22] VITALS: BP 168/104; PULSE 56; RESP 16; TEMP 97.5; O2SAT 98
[2016-07-04] MEDS: LACTOBACILLUS ACIDOPHILUS TAB PO SCH ×2 (14:39→20:24)
[2016-07-04 17:46] VITALS: BP 136/96; PULSE 73; RESP 16; TEMP 97.1; O2SAT 96
[2016-07-04 20:56] VITALS: BP 182/110; PULSE 64; RESP 20; TEMP 98; O2SAT 96
[2016-07-04] MEDS: SODIUM CHLORIDE 0.9% FLUSH 10 ML FLUSH IV FLUSH PRN (23:36)
[2016-07-05 00:24] VITALS: BP 176/101; PULSE 57; RESP 18; TEMP 97.2; O2SAT 96
[2016-07-05] MEDS: PIPERACIL-TAZO 3.375 GM PREMIX 50 ML IV SCH ×3 (01:06→17:12)
[2016-07-05] MEDS: ONDANSETRON HCL 4 MG/2 ML VIAL IVP PRN ×2 (03:45→11:51)
[2016-07-05] MEDS: MORPHINE SULFATE 4 MG/ML INJ IV PUSH PRN ×3 (03:45→11:45)
[2016-07-05] MEDS: KETOROLAC TROMETHAMINE 30 MG/ML (IVP) VIAL IV PUSH PRN ×2 (03:46→14:43)
[2016-07-05] MEDS: SODIUM CHLORIDE 0.9% FLUSH 10 ML FLUSH IV FLUSH PRN (03:51)
[2016-07-05] MEDS: HEPARIN SODIUM - SQ 10,000 UNITS/ML VIAL SQ SCH ×2 (06:15→14:46)
[2016-07-05] MEDS: GABAPENTIN 400 MG CAP PO SCH (08:24)
[2016-07-05] MEDS: NICOTINE 21 MG/24 HR PATCH T-DERMAL SCH (08:25)
[2016-07-05] MEDS: busPIRone HCL 5 MG TAB PO SCH ×2 (08:25→11:56)
[2016-07-05] MEDS: SODIUM CHLORIDE 0.9% FLUSH 10 ML FLUSH IV FLUSH SCH (08:25)
[2016-07-05] MEDS: LISINOPRIL 5 MG TAB PO SCH (08:25)
[2016-07-05] MEDS: QUEtiapine FUMARATE 200 MG TAB PO SCH (08:25)
[2016-07-05] MEDS: LACTOBACILLUS ACIDOPHILUS TAB PO SCH (08:25)
[2016-07-05] MEDS: LEVOFLOXACIN 750 MG TAB PO SCH (08:26)
[2016-07-05] MEDS: REMOVE OLD PATCH T-DERMAL SCH (08:26)
[2016-07-05 09:50] VITALS: BP 182/108; PULSE 68; RESP 18; TEMP 96.9; O2SAT 100
--- NOTE | 2016-07-05 11:04 | HHI.PR ---
Subjective Remarks Patient reports diarrhea is improving today. She still reporting significant pain in the left fluid but agreeable to switch to oral pain medication. No fevers or chills. Objective Vitals Vital Signs Date Time Temp Pulse Resp B/P Pulse Ox O2 Delivery O2 Flow Rate FiO2 07/05/16 09:50 96.9 68 18 182/108 100 07/05/16 08:29 16 07/05/16 00:24 97.2 57 18 176/101 96 07/04/16 20:56 98.0 64 20 182/110 96 07/04/16 17:46 97.1 73 16 136/96 96 07/04/16 16:11 18 07/04/16 13:22 97.5 56 16 168/104 98 I/O 07/04/16 07/04/16 07/04/16 07/05/16 07/05/16 07/05/16 07:00 15:00 23:00 07:00 15:00 23:00 Intake Total 112 ml 0 ml Balance 112 ml 0 ml Intake Oral 0 ml IV Total 112 ml 0 ml # Voids 2 1 2 # Bowel Movements 2 Result Diagram: 07/04/1643 07/04/16 0743 Objective Remarks GENERAL: This is a well-nourished, well-developed patient, in no apparent distress. CARDIOVASCULAR: Normal rate and regular rhythm without murmurs, gallops, or rubs. RESPIRATORY: Good respiratory efforts. Breath sounds equal and clear to auscultation bilaterally. GASTROINTESTINAL: Abdomen soft, non-tender, non-distended. Normal active bowel sounds MUSCULOSKELETAL: Left foot is wrapped with a clean dressing. Neurovascularly intact at the toes. Patient apprehensive and very tender to palpation of the toes. NEURO: Alert & Oriented x4 to person, place, time, situation. Moves all ext x4 PSYCH: Appropriate mood and affect. Procedures Status post incision and drainage of the left foot on 07/02/16. A/P Problem List: (1) Infection of left foot ICD Code: L08.9 Status: Acute Plan: Continue IV vancomycin and IV Zosyn MRI showed cellulitis and abscess of the left foot, no osteomyelitis Continue with IV Toradol. Change IV morphine to [place] for breakthrough pain. wound culture of the foot obtained on 06/29/16 grew Klebsiella pneumonia, serenity marcescens, Pseudomonas aeruginosa. Blood cultures is growing gram- negative inderjit. Wound culture on this admission is growing some bedtime resistance, consider pneumonia, Pseudomonas aeruginosa and strep viridans. Appreciate podiatry following. Patient is status post incision and drainage of left foot abscess. Infectious disease following. Vancomycin discontinued. Continue Zosyn. Levaquin added. (2) Bipolar disorder with moderate depression ICD Code: F31.32 Status: Chronic Plan: Home medications including Vistaril, Seroquel and buspirone. Seems to be stable. (3) Neuropathic pain ICD Code: M79.2 Status: Acute Plan: Continue gabapentin. Stable. (4) Tobacco abuse ICD Code: Z72.0 Status: Chronic Plan: Advised smoking cessation. Continue nicotine patch (5) Substance abuse ICD Code: F19.10 Status: Chronic Plan: Patient counseled against illegal drug use. She is agreeable to go back to rehabilitation it [place]. She will need a ride. Case management will assist. (6) Diarrhea ICD Code: R19.7 Status: Acute Plan: Will check C. difficile. Could be related to antibiotics. Lactinex (7) Hypertension ICD Code: I10 Status: Acute Plan: Increase lisinopril to 10 mg daily. Clonidine as needed. Usha Vanessa MD July 05, 2016 11:04
[2016-07-05] MEDS ORDERED: LISINOPRIL 5 MG TAB PO ONE (14:00)
[2016-07-05] MEDS ORDERED: ACETAMINOPHEN/HYDROcodone 325 MG/5 MG TAB PO PRN (14:00)
[2016-07-05 14:26] VITALS: BP 155/110; PULSE 70; RESP 16; TEMP 97.2; O2SAT 98
[2016-07-05] MEDS ORDERED: LORazepam 1 MG TAB PO PRN (15:15)
[2016-07-05 17:15] VITALS: BP 179/112; PULSE 65; RESP 16; TEMP 98.1; O2SAT 93
[2016-07-06] MEDS ORDERED: MORPHINE SULFATE 4 MG/ML INJ IV PUSH PRN (09:00)
[2016-07-06] MEDS ORDERED: LISINOPRIL 10 MG TAB PO SCH (09:00)
--- NOTE | 2016-07-06 11:13 | HHI.DS ---
Discharge Summary Admission Date June 30, 2016 at 20:17 Discharge Date: July 05, 2016 Admitting Diagnosis SOFT TISSUE INFECTION LEFT FOOT (1) Infection of left foot ICD Code: L08.9 (2) Bipolar disorder with moderate depression ICD Code: F31.32 (3) Neuropathic pain ICD Code: M79.2 (4) Tobacco abuse ICD Code: Z72.0 (5) Substance abuse ICD Code: F19.10 (6) Diarrhea ICD Code: R19.7 (7) Hypertension ICD Code: I10 Procedures Status post incision and drainage of the left foot on 07/02/16. Brief History - From Admission This is a 46-year-old female with past medical history significant for IV drug abuse, chronic abdominal pain, who presents with [facility] complaining of pain in the left foot. The patient states that a friend attempted to inject Dilaudid in her foot about 7 days ago and since then she had progressive swelling, erythema and purulent drainage. The patient complains of extreme 10 over 10 pain in the left foot that the patient associated with fevers and chills at home. Denies diarrhea, states had nausea and vomiting, denies abdominal pain. Patient also denies chest pain or short of breath. Apparently the patient presented to the ED one day prior to this admission and had a foot culture obtained. Patient came back because symptoms worsened. CBC/BMP: 07/04/16 0743 07/04/16 0743 Significant Findings Laboratory Tests Test 07/04/16 07:43 Red Blood Count 3.81 MIL/MM3 (4.00-5.30) Hemoglobin 9.8 GM/DL (11.6-15.3) Hematocrit 30.8 % (35.0-46.0) Mean Corpuscular Hemoglobin 25.7 PG (27.0-34.0) Mean Corpuscular Hemoglobin 31.9 % Concent (32.0-36.0) Creatinine 1.10 MG/DL (0.50-1.00) Estimat Glomerular Filtration 54 ML/MIN (>89) Rate Calcium Level 8.4 MG/DL (8.5-10.1) Imaging Last Impressions Foot MRI 5/9/17 0000 Signed Impressions: Service Date/Time: Friday, July 01, 2016 12:23 - CONCLUSION: Diffuse dorsal superficial soft tissue enhancement and edema indicating cellulitis in the proper clinical setting. Dorsal cutaneous ulceration or defect with sinus tract extending to 1.6 cm area of dorsal soft tissue abscess or phlegmon. Aneesh Hickman MD PE at Discharge GENERAL: This is a well-nourished, well-developed patient, in no apparent distress. CARDIOVASCULAR: Normal rate and regular rhythm without murmurs, gallops, or rubs. RESPIRATORY: Good respiratory efforts. Breath sounds equal and clear to auscultation bilaterally. GASTROINTESTINAL: Abdomen soft, non-tender, non-distended. Normal active bowel sounds MUSCULOSKELETAL: Left foot is wrapped with a clean dressing. Neurovascularly intact at the toes. Patient apprehensive and very tender to palpation of the toes. NEURO: Alert & Oriented x4 to person, place, time, situation. Moves all ext x4 PSYCH: Appropriate mood and affect. Hospital Course 46-year-old female who recently presented to hospital with pain in her left foot. Patient does have history of IV drug use and is indicated that her boyfriend tried to inject her in her foot with Dilaudid, however she started developing redness, pain and purulent drainage. Patient started developing fever and chills that she came to the hospital for evaluation. Patient was admitted with IV antibiotics, pain control, podiatry consult. Patient was seen by negative cleaner and underwent incision and drainage of the wound. Culture grew out polymicrobial with Serratia, Klebsiella, Pseudomonas, viridans. Patient was started on empirical antibiotics Zosyn and vancomycin. Patient had infectious disease consult performed and is recommended continuation of Zosyn and added by mouth Levaquin. During the patient's stay she was rather high maintenance with nursing staff, physician staff. She was very manipulative with trying to obtain pain medication. Patient continued to threaten leaving AGAINST MEDICAL ADVICE if she did not get the pain medication that she wanted. Patient was started on appropriate pain management to include [place], Toradol. However she did not prefer this medication she is demanding morphine only. Patient was given low-dose morphine for pain control post surgery. However after 48 hours status post surgical intervention, IV pain morphine was discontinued. Patient again became manipulative with nursing staff and physician staff. Dr. Vanessa evaluated the patient multiple times yesterday discussing with her pain control and convincing her to stay in the hospital due to her significant infection in need for antibiotics. However, patient did elope yesterday. Per nursing staff the patient refused to sign AMA paperwork. Throughout the patient's stay she was counseled multiple times on cessation from IV drug use, narcotic use, need for continued management in the hospital with IV antibiotics or she could develop worsening infection, possible amputation, even that she continues her current lifestyle. Pt Condition on Discharge: Guarded Discharge Disposition: Discharge Home Discharge Time: <= 30 minutes Andres Patrick July 06, 2016 11:12
== END 2016-07-05 16:40 | disposition left against medical advice (07) | DRG 603 ==
LOC: PHED 18:43 → PHEDA 20:17 → PH3B 22:39
PROVIDERS: ADMIT Family Medicine; ATTEND Family Medicine
PROC: 0H9NXZX Drainage of Left Foot Skin, External Approach, Diagnostic (ICD-10-PCS; 2016-06-30)
PROC: 0J9R0ZX Drainage of Left Foot Subcutaneous Tissue and Fascia, Open Approach, Diagnostic (ICD-10-PCS; principal; 2016-07-02 07:40)
DX: L02.612 Cutaneous abscess of left foot (principal); R78.81 Bacteremia; I10 Essential (primary) hypertension; L03.116 Cellulitis of left lower limb; F31.9 Bipolar disorder, unspecified; F17.210 Nicotine dependence, cigarettes, uncomplicated; F12.90 Cannabis use, unspecified, uncomplicated; F11.10 Opioid abuse, uncomplicated; F41.9 Anxiety disorder, unspecified; K58.9 Irritable bowel syndrome, unspecified; B96.1 Klebsiella pneumoniae [K. pneumoniae] as the cause of diseases classified elsewhere; B96.5 Pseudomonas (aeruginosa) (mallei) (pseudomallei) as the cause of diseases classified elsewhere
CPT/HCPCS: 10061; 73720; 76937; 80048; 80053; 80074; 83735; 84100; 85025; 85027; 87015; 87040; 87070; 87102; 87116; 87205; 87206; 93306; 94640; 96361; 96374; 96375; A9579; J1170; J1644; J1885; J2175; J2250; J2270; J2405; J2543; J3010; J3370; J7030; J7050; J7120; J7611

== ENCOUNTER 2016-07-07 21:52 | Emergency (ER) | payer SELFPAY ==
[~2016-07-07] VITALS: Ht 162.6 cm; Wt 70.0 kg
[~2016-07-07 21:52] MED LIST changes: +BUSP15TA PO; -BUSP5TAB PO; -CEPH-460 PO; -CLIN1CAP5 PO; -SERO100T PO; +SERO200T PO
[2016-07-07] MEDS ORDERED: VIST50CA PO (22:05)
--- NOTE | 2016-07-07 22:09 | PD ---
HPI Chief Complaint: Pain: Acute or Chronic Time Seen by Provider: 22:09 Travel History International Travel<30 days: No Contact w/Intl Traveler<30days: No Traveled to known affect area: No History of Present Illness HPI 46-year-old female came to the emergency room with history of right foot postsurgical pain. [place] [facility] right foot abscess secondary to IV drug abuse. She had the abscess drained by the tester waste disposal leakage and was getting IV antibiotic. Patient decided to leave against medical advise yesterday. Today she came here by EMS with history of foot pain. She says that she has noticed swelling of her foot around the surgical area. No history of fever or chills. Vital signs upon arrival showed tachycardia and hypertensive. She seems to be very anxious. [facility] Past Medical History Narrative Medical List of her past medical, surgical, social and family history was reviewed from the nursing note. Asthma: Yes Autoimmune Disease: No Bipolar Disorder: Yes Anxiety: Yes Depression: Yes Heart Rhythm Problems: Yes (PALPITATIONS) Cancer: Yes (CERVICAL, needs surgery yet) Cardiac Catheterization: No Cardiovascular Problems: Yes ([place], [place]) High Cholesterol: No Congestive Heart Failure: No COPD: Yes Diabetes: No Diminished Hearing: No Endocrine: No Gastrointestinal Disorders: Yes (COLITIS) GERD: Yes Genitourinary: Yes (UTI, polynephritis) Headaches: Yes Heparin Induced Thrombocytopen: No Herniated Disk: Yes Hypertension: Yes Immune Disorder: No Insomnia: Yes Kidney Stones: Yes Musculoskeletal: Yes (CHRONIC BACK PAIN) Neurologic: Yes (BRAIN INJURY) Psychiatric: Yes Reproductive: Yes Respiratory: Yes (COPD) Immunizations Current: Yes Migraines: Yes Myocardial Infarction: Yes (2011) Seizures: Yes (from coming off Xanax, hasn't had in 6 months) Thyroid Disease: No Ulcer: Yes PNEUMOCCOCAL Vaccine (Year): 2 ?: Not LMP: 06/29/16 Menopausal: No : 10 Para: 6 Miscarriage: 3 : 1 Ectopic : Yes (1994) Ovarian Cysts: Yes Dilation and Curettage (D&C): Yes Tubal Ligation: Yes Past Surgical History Abdominal Surgery: Yes (appendectomy ) Appendectomy: Yes Cardiac Surgery: No Cholecystectomy: No (PT DENIES CHASITY) Coronary Artery Bypass Graft: No Ear Surgery: No Endocrine Surgery: No Eye Surgery: No Genitourinary Surgery: No Gynecologic Surgery: Yes (ectopic prenancy removed) Neurologic Surgery: Yes (HERNIATED LUMBAR DISCS ) Oral Surgery: No Thoracic Surgery: No Other Surgery: Yes (LEFT HAND SURGERY) Social History Alcohol Use: No Tobacco Use: Yes (1/2 ppd) Substance Use: Yes (weed, IV DILAUDID ) Allergies-Medications (Allergen,Severity, Reaction): Coded Allergies: Sulfa (Verified Allergy, Severe, Rash, 07/08/16) *MDRO Multi-Drug Resistant Organism (Verified Adverse Reaction, Unknown, Cleared, 07/09/16) 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 Cleared per Infection Control: MRSA PCR negative - 01/01/2015 & 09/27/2015 Compazine (Verified Adverse Reaction, Unknown, ANGINA, 07/08/16) Magnesium Sulfate (Verified Adverse Reaction, Unknown, PRUITIC RASH, ) Terbutaline (Verified Adverse Reaction, Unknown, HEART RATE ELEVATES, 07/08) Comments List of her allergies reviewed from the nursing note. Reported Meds & Prescriptions Reported Meds & Active Scripts Active Gabapentin 600 Mg Tab 1,200 Mg PO BID Reported Klonopin (Clonazepam) 2 Mg Tab 2 Mg PO BID Seroquel (Quetiapine Fumarate) 200 Mg Tab 200 Mg PO BID Buspirone (Buspirone HCl) 15 Mg Tab 15 Mg PO TID Vistaril (Hydroxyzine Pamoate) 50 Mg Cap 100 Mg PO BID Narrative Medication List of her home medications reviewed from the nursing note. Review of Systems Except as stated in HPI: all other systems reviewed are Neg Physical Exam Narrative GENERAL: Awake, alert, anxious, significant distress SKIN: Focused skin assessment warm/dry. Postsurgical change on the right dorsum of the foot. The incision looks clean. No drainage. Appears to be a healthy surgical wound. HEAD: Atraumatic. Normocephalic. EYES: Pupils equal and round. No scleral icterus. No injection or drainage. ENT: No nasal bleeding or discharge. Mucous membranes pink and moist. NECK: Trachea midline. No JVD. CARDIOVASCULAR: Regular rate and rhythm. No murmur appreciated. RESPIRATORY: No accessory muscle use. Clear to auscultation. Breath sounds equal bilaterally. GASTROINTESTINAL: Abdomen soft, non-tender, nondistended. Hepatic and splenic margins not palpable. MUSCULOSKELETAL: No obvious deformities. No clubbing. No cyanosis. No edema. NEUROLOGICAL: Awake and alert. No obvious cranial nerve deficits. Motor grossly within normal limits. Normal speech. PSYCHIATRIC: Appropriate mood and affect; insight and judgment normal. Data Data Last Documented VS Vital Signs Date Time Temp Pulse Resp B/P Pulse Ox O2 Delivery O2 Flow Rate FiO2 07/07/16 22:10 98.6 83 22 187/112 96 Room Air Orders Basic Metabolic Panel (Bmp) (07/07/16 22:12) Complete Blood Count With Diff (07/07/16 22:12) Blood Culture (07/07/16 22:12) C-Reactive Protein (Crp) (07/07/16 22:12) W[place]gren Sedimentation Rate (07/07/16 22:12) Levofloxacin (Levaquin) (07/07/16 22:30) Ondansetron Odt (Zofran Odt) (07/07/16 23:00) Potassium Chloride Eff (K-Lyte Cl Eff) (07/08/16 09:00) Potassium Chloride Eff (K-Lyte Cl Eff) (07/07/16 23:45) Labs Laboratory Tests Test 07/07/16 22:25 White Blood Count 7.9 TH/MM3 Red Blood Count 4.21 MIL/MM3 Hemoglobin 10.9 GM/DL Hematocrit 32.9 % Mean Corpuscular Volume 78.0 FL Mean Corpuscular Hemoglobin 26.0 PG Mean Corpuscular Hemoglobin 33.3 % Concent Red Cell Distribution Width 16.1 % Platelet Count 344 TH/MM3 Mean Platelet Volume 8.4 FL Neutrophils (%) (Auto) 54.1 % Lymphocytes (%) (Auto) 36.3 % Monocytes (%) (Auto) 6.4 % Eosinophils (%) (Auto) 2.4 % Basophils (%) (Auto) 0.8 % Neutrophils # (Auto) 4.3 TH/MM3 Lymphocytes # (Auto) 2.9 TH/MM3 Monocytes # (Auto) 0.5 TH/MM3 Eosinophils # (Auto) 0.2 TH/MM3 Basophils # (Auto) 0.1 TH/MM3 CBC Comment DIFF FINAL Differential Comment Erythrocyte Sedimentation Rate 44 mm/hr Sodium Level 138 MEQ/L Potassium Level 3.1 MEQ/L Chloride Level 103 MEQ/L Carbon Dioxide Level 26.9 MEQ/L Anion Gap 8 MEQ/L Blood Urea Nitrogen 6 MG/DL Creatinine 1.07 MG/DL Estimat Glomerular Filtration 56 ML/MIN Rate Random Glucose 118 MG/DL Calcium Level 9.0 MG/DL C-Reactive Protein 2.00 MG/DL MDM Medical Decision Making Medical Screen Exam Complete: Yes Emergency Medical Condition: Yes Medical Record Reviewed: Yes Differential Diagnosis Postsurgical change, postsurgical infection Narrative Course 11:17 PM since patient left AMA she was not given any medications. I gave her dose of Levaquin based on the culture sensitivity. She has been medicated for pain and nausea as well. Awaiting for the blood test results. CBC is back and appears to be within normal limit. 11:40 PM patient's CRP and sedimentation rate are slightly elevated. However there is no old value to compare with. In the fact that the wound is looking clean I will discharge her home with prescription for Levaquin as well as Zofran. She needs to follow-up with the tester waste disposal leakage. Procedures EKG Prior to Arrival: No Diagnosis Primary Impression: Postoperative pain Additional Instructions: Please follow-up with the tester waste disposal leakage who operated on you. His name and number given to you on his discharge paperwork. Take the antibiotic as per the prescription direction. Return to the ER if the symptoms worsen or any other new concerns. Med/Other Pt SpecificInfo: Prescription(s) given Disposition: 01 DISCHARGE HOME Condition: Stable Josette Fletcher MD July 07, 2016 22:09
[2016-07-07 22:10] VITALS: BP 187/112; PULSE 83; RESP 22; TEMP 98.6; O2SAT 96
[2016-07-07] MEDS ORDERED: LEVOFLOXACIN 500 MG TAB PO ONE (22:30)
[2016-07-07 22:59] LABS: AUTOMATED NEUTROPHIL # 4.3 TH/MM3 (1.8-7.7); BASOPHIL # 0.1 TH/MM3 (0-0.2); BASOPHIL % 0.8 % (0.0-2.0); EOSINOPHIL # 0.2 TH/MM3 (0-0.4); EOSINOPHIL % 2.4 % (0.0-4.0); HEMATOCRIT 32.9 % (35.0-46.0); HEMO FLAGS DIFF FINAL; LYMPH % 36.3 % (9.0-44.0); LYMPHOCYTE # 2.9 TH/MM3 (1.0-4.8); MEAN CORPUSCULAR HGB CONC 33.3 % (32.0-36.0); MONO % 6.4 % (0.0-8.0); NEUT % 54.1 % (16.0-70.0); PLATELET COUNT 344 TH/MM3 (150-450); RED BLOOD COUNT 4.21 MIL/MM3 (4.00-5.30); RED CELL DISTRIBUTION WIDTH 16.1 % (11.6-17.2); WHITE BLOOD COUNT 7.9 TH/MM3 (4.0-11.0)
[2016-07-07] MEDS ORDERED: ONDANSETRON ODT 4 MG TAB PO ONE (23:00)
[2016-07-07 23:16] LABS: BICARBONATE 26.9 MEQ/L (21.0-32.0); POTASSIUM 3.1 MEQ/L (3.5-5.1)
[2016-07-07] MEDS ORDERED: LEVA500T PO (23:41)
[2016-07-07] MEDS ORDERED: POTASSIUM CHLORIDE 25 MEQ EFFERVESCENT TAB PO ONE (23:45)
[2016-07-08] MEDS ORDERED: POTASSIUM CHLORIDE 25 MEQ EFFERVESCENT TAB NG SCH (09:00)
[2016-07-08] MEDS ORDERED: KLON2TAB PO (16:11)
== END 2016-07-08 00:35 | disposition home or self-care (01) ==
LOC: NEPD 21:52
DX: G89.18 Other acute postprocedural pain (principal); J44.9 Chronic obstructive pulmonary disease, unspecified; I10 Essential (primary) hypertension; F17.210 Nicotine dependence, cigarettes, uncomplicated; F11.10 Opioid abuse, uncomplicated; F41.8 Other specified anxiety disorders; J45.909 Unspecified asthma, uncomplicated
CPT/HCPCS: 80048; 85025; 85652; 86140; 87040; 99283

== ENCOUNTER 2016-07-08 13:42 | Inpatient (IN) | payer SELFPAY ==
[~2016-07-08] VITALS: Ht 162.6 cm; Wt 75.2 kg
[2016-07-08] VITALS (7 sets, daily range): BP systolic 137–151; BP diastolic 90–105; PULSE 67–82; RESP 16–19; TEMP 96.7–98.3; O2SAT 94–98
[~2016-07-08 13:42] MED LIST changes: +LEVA500T PO
[2016-07-08] MEDS ORDERED: SODIUM CHLOR 0.9% 1000 ML INJ 1,000 ML IV ONE (13:56)
[2016-07-08] MEDS ORDERED: ONDANSETRON HCL 4 MG/2 ML VIAL IV PUSH ONE (14:00)
[2016-07-08] MEDS ORDERED: MORPHINE SULFATE 4 MG/ML INJ IV PUSH ONE (14:00)
--- NOTE | 2016-07-08 14:11 | PD ---
HPI Chief Complaint: Pain: Acute or Chronic Time Seen by Provider: 13:56 Travel History International Travel<30 days: No Contact w/Intl Traveler<30days: No Traveled to known affect area: No History of Present Illness HPI 46-year-old female with previous history of IV drug use, previous [place], seizures, recently admitted for left foot infection, left AGAINST MEDICAL ADVICE 2 days ago because she states that she needed to go to her cousin's , is here again because of increased pain in the left foot and swelling of the area on the same foot where she had a previous drainage. She states she has not been feeling well but denies any actual fevers or any other symptoms. Pain is currently a 10 out of 10. Modifying Factors: None Associated Signs & Symptoms: Worsening left foot pain Risk Factors: Previous left foot infection status post drainage by podiatry [facility] Past Medical History Asthma: Yes Autoimmune Disease: No Bipolar Disorder: Yes Anxiety: Yes Depression: Yes Heart Rhythm Problems: Yes (PALPITATIONS) Cancer: Yes (CERVICAL, needs surgery yet) Cardiac Catheterization: No Cardiovascular Problems: Yes ([place], [place]) High Cholesterol: No Congestive Heart Failure: No COPD: Yes Diabetes: No Diminished Hearing: No Endocrine: No Gastrointestinal Disorders: Yes (COLITIS) GERD: Yes Genitourinary: Yes (UTI, polynephritis) Headaches: Yes Heparin Induced Thrombocytopen: No Herniated Disk: Yes Hypertension: Yes (during stress or pain only) Immune Disorder: No Insomnia: Yes Kidney Stones: Yes Musculoskeletal: Yes (CHRONIC BACK PAIN) Neurologic: Yes (BRAIN INJURY) Psychiatric: Yes Reproductive: Yes Respiratory: Yes (COPD) Immunizations Current: Yes Migraines: Yes Myocardial Infarction: Yes (2011) Seizures: Yes (from coming off Xanax, hasn't had in 6 months) Thyroid Disease: No Ulcer: Yes Influenza Vaccination: No PNEUMOCCOCAL Vaccine (Year): 2 ?: Not Menopausal: No : 10 Para: 6 Miscarriage: 3 : 1 Ectopic : Yes (1994) Ovarian Cysts: Yes Dilation and Curettage (D&C): Yes Tubal Ligation: Yes Past Surgical History Abdominal Surgery: Yes (appendectomy ) Appendectomy: Yes Cardiac Surgery: No Coronary Artery Bypass Graft: No Ear Surgery: No Endocrine Surgery: No Eye Surgery: No Genitourinary Surgery: No Gynecologic Surgery: Yes (ectopic prenancy removed) Oral Surgery: No Thoracic Surgery: No Other Surgery: Yes (LEFT HAND SURGERY) Social History Alcohol Use: No Tobacco Use: Yes (1/2 ppd) Substance Use: Yes (weed, IV DILAUDID ) Allergies-Medications (Allergen,Severity, Reaction): Coded Allergies: Sulfa (Verified Allergy, Severe, Rash, 07/08/16) *MDRO Multi-Drug Resistant Organism (Verified Adverse Reaction, Unknown, MRSA, 07/08/16) 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 Compazine (Verified Adverse Reaction, Unknown, ANGINA, 07/08/16) Magnesium Sulfate (Verified Adverse Reaction, Unknown, PRUITIC RASH, ) Terbutaline (Verified Adverse Reaction, Unknown, HEART RATE ELEVATES, 07/08) Reported Meds & Prescriptions Reported Meds & Active Scripts Active Levaquin (Levofloxacin) 500 Mg Tab 500 Mg PO DAILY 10 Days Gabapentin 600 Mg Tab 1,200 Mg PO BID Reported Vistaril (Hydroxyzine Pamoate) 50 Mg Cap 200 Mg PO HS PRN Seroquel (Quetiapine Fumarate) 200 Mg Tab 200 Mg PO BID Buspirone (Buspirone HCl) 15 Mg Tab 15 Mg PO TID Vistaril (Hydroxyzine Pamoate) 50 Mg Cap 100 Mg PO BID Review of Systems Except as stated in HPI: all other systems reviewed are Neg Physical Exam Narrative GENERAL: Well-developed anxious appearing middle age white female patient currently in moderate distress. Awake and oriented 3. SKIN: Focused skin assessment warm/dry. HEAD: Atraumatic. Normocephalic. EYES: Pupils equal and round. No scleral icterus. No injection or drainage. ENT: No nasal bleeding or discharge. Mucous membranes pink and moist. NECK: Trachea midline. No JVD. CARDIOVASCULAR: Regular rate and rhythm. No murmur appreciated. RESPIRATORY: No accessory muscle use. Clear to auscultation. Breath sounds equal bilaterally. GASTROINTESTINAL: Abdomen soft, non-tender, nondistended. Hepatic and splenic margins not palpable. MUSCULOSKELETAL: No obvious deformities. No clubbing. No cyanosis. No edema. There is notable track pickering in both arms. Left foot: There is a incision site on the left foot which is clean, dry, intact without significant drainage or erythema. There is an area lateral to this area around the fourth metatarsal area which is tender to palpation and mildly fluctuant. NEUROLOGICAL: Awake and alert. No obvious cranial nerve deficits. Motor grossly within normal limits. Normal speech. PSYCHIATRIC: Appropriate mood and affect; insight and judgment normal. Data Data Last Documented VS Vital Signs Date Time Temp Pulse Resp B/P Pulse Ox O2 Delivery O2 Flow Rate FiO2 07/08/16 14:28 94 07/08/16 13:46 98.0 82 16 146/102 Orders Complete Blood Count With Diff (07/08/16 13:56) Comprehensive Metabolic Panel (07/08/16 13:56) Lactic Acid Sepsis Protocol (07/08/16 13:56) Blood Culture (07/08/16 13:56) Blood Glucose (07/08/16 13:56) Ecg Monitoring (07/08/16 13:56) Iv Access Insert/Monitor (07/08/16 13:56) Oximetry (07/08/16 13:56) Oxygen Administration (07/08/16 13:56) Sodium Chlor 0.9% 1000 Ml Inj (Ns 1000 M (07/08/16 13:56) Ondansetron Inj (Zofran Inj) (07/08/16 14:00) Morphine Inj (Morphine Inj) (07/08/16 14:00) Foot, Limited (2vws) (07/08/16 14:15) Piperacil-Tazo 4.5 Gm Premix (Zosyn 4.5 (07/08/16 14:16) Vancomycin Inj (Vancomycin Inj) (07/08/16 14:16) Labs Laboratory Tests Test 07/08/16 07/08/16 14:40 14:44 White Blood Count 6.6 TH/MM3 Red Blood Count 3.95 MIL/MM3 Hemoglobin 9.8 GM/DL Hematocrit 31.1 % Mean Corpuscular Volume 78.7 FL Mean Corpuscular Hemoglobin 24.8 PG Mean Corpuscular Hemoglobin 31.5 % Concent Red Cell Distribution Width 14.9 % Platelet Count 319 TH/MM3 Mean Platelet Volume 7.9 FL Neutrophils (%) (Auto) 48.0 % Lymphocytes (%) (Auto) 39.8 % Monocytes (%) (Auto) 8.1 % Eosinophils (%) (Auto) 3.4 % Basophils (%) (Auto) 0.7 % Neutrophils # (Auto) 3.3 TH/MM3 Lymphocytes # (Auto) 2.6 TH/MM3 Monocytes # (Auto) 0.5 TH/MM3 Eosinophils # (Auto) 0.2 TH/MM3 Basophils # (Auto) 0.0 TH/MM3 CBC Comment AUTO DIFF Differential Comment AUTO DIFF CONFIRMED Sodium Level 140 MEQ/L Potassium Level 3.5 MEQ/L Chloride Level 105 MEQ/L Carbon Dioxide Level 27.3 MEQ/L Anion Gap 8 MEQ/L Blood Urea Nitrogen 5 MG/DL Creatinine 1.00 MG/DL Estimat Glomerular Filtration 60 ML/MIN Rate Random Glucose 112 MG/DL Calcium Level 8.5 MG/DL Total Bilirubin 0.3 MG/DL Aspartate Amino Transf 19 U/L (AST/SGOT) Alanine Aminotransferase 16 U/L (ALT/SGPT) Alkaline Phosphatase 98 U/L Total Protein 7.1 GM/DL Albumin 3.4 GM/DL Lactic Acid Level 1.1 mmol/L MDM Medical Decision Making Medical Screen Exam Complete: Yes Emergency Medical Condition: Yes Medical Record Reviewed: Yes Interpretation(s) Laboratory Tests Test 07/08/16 14:40 Red Blood Count 3.95 MIL/MM3 (4.00-5.30) Hemoglobin 9.8 GM/DL (11.6-15.3) Hematocrit 31.1 % (35.0-46.0) Mean Corpuscular Volume 78.7 FL (80.0-100.0) Mean Corpuscular Hemoglobin 24.8 PG (27.0-34.0) Mean Corpuscular Hemoglobin 31.5 % Concent (32.0-36.0) Monocytes (%) (Auto) 8.1 % (0.0-8.0) Blood Urea Nitrogen 5 MG/DL (7-18) Estimat Glomerular Filtration 60 ML/MIN (>89) Rate Random Glucose 112 MG/DL (74-106) Differential Diagnosis Increase left foot paincellulitis versus abscess versus tenosynovitis Narrative Course Patient has area of edema over the lateral area of her left foot which she states Dr. Alberto wanted to surgically treated last time she was here. Lab work was drawn and IV antibiotics were initiated after cultures are done. Lab work did not indicate significant leukocytosis at this time. Case had been discussed with Dr. Alberto who would like me to medically admit her for IV antibiotics and for further evaluation for need of possible further drainage. Case was discussed with Dr. Tadeo for admission. Diagnosis Primary Impression: Cellulitis of left foot excluding toes Admitting Information Admitting Physician Requests: Admit Az Downey MD July 08, 2016 14:11
[2016-07-08] MEDS ORDERED: VANCOMYCIN INJ 1,000 MG in SODIUM CHLOR 0.9% 250 ML INJ 250 ML IV STA (14:16)
[2016-07-08] MEDS ORDERED: PIPERACIL-TAZO 4.5 GM PREMIX 100 ML IV STA (14:16)
[2016-07-08 15:00] LABS: AUTOMATED NEUTROPHIL # 3.3 TH/MM3 (1.8-7.7); BASOPHIL % 0.7 % (0.0-2.0); EOSINOPHIL # 0.2 TH/MM3 (0-0.4); EOSINOPHIL % 3.4 % (0.0-4.0); HEMATOCRIT 31.1 % (35.0-46.0); LYMPH % 39.8 % (9.0-44.0); LYMPHOCYTE # 2.6 TH/MM3 (1.0-4.8); MEAN CELL VOLUME 78.7 FL (80.0-100.0); MEAN CORPUSCULAR HEMOGLOBIN 24.8 PG (27.0-34.0); MEAN CORPUSCULAR HGB CONC 31.5 % (32.0-36.0); MONO % 8.1 % (0.0-8.0); PLATELET COUNT 319 TH/MM3 (150-450); RED BLOOD COUNT 3.95 MIL/MM3 (4.00-5.30); RED CELL DISTRIBUTION WIDTH 14.9 % (11.6-17.2); WHITE BLOOD COUNT 6.6 TH/MM3 (4.0-11.0)
[2016-07-08 15:09] LABS: CHLORIDE 105 MEQ/L (98-107); HEMO FLAGS AUTO DIFF; POTASSIUM 3.5 MEQ/L (3.5-5.1); SODIUM (NA) 140 MEQ/L (136-145)
[2016-07-08 15:13] LABS: ANION GAP 8 MEQ/L (5-15); BICARBONATE 27.3 MEQ/L (21.0-32.0); BLOOD UREA NITROGEN 5 MG/DL (7-18)
[2016-07-08 15:15] LABS: ALT (GPT) 16 U/L (10-53)
[2016-07-08 15:16] LABS: AST (GOT) 19 U/L (15-37); GLOMERULAR FILTRATION RATE 60 ML/MIN (>89)
[2016-07-08 15:17] LABS: TOTAL BILIRUBIN ADULT 0.3 MG/DL (0.2-1.0)
[2016-07-08 15:18] LABS: ALKALINE PHOSPHATASE 98 U/L (45-117)
[2016-07-08 15:52] LABS: SCAN/DIFF AUTO DIFF CONFIRMED
[2016-07-08] MEDS ORDERED: KLON2TAB PO (16:11)
--- NOTE | 2016-07-08 16:45 | RADHPO ---
EXAM DATE/TIME: 07/08/2016 15:36 [facility] COMPARISON: No previous studies available for comparison. INDICATIONS : Left foot pain and swelling. Patient states she had foot surgery one week ago due to infection. MEDICAL HISTORY : Left foot infection. SURGICAL HISTORY : Left foot. ENCOUNTER: Initial ACUITY: 4 - 6 days PAIN SCORE: 8/10 LOCATION: Left foot. FINDINGS: Two view examination of the left foot demonstrates no dislocation or fracture. Mild dorsal soft tiss ue swelling involving the forefoot. The calcaneus is intact. Bony mineralization is normal. CONCLUSION: 1. Mild dorsal soft tissue swelling involving the forefoot. Buzz Pena Jr., MD on July 08, 2016 at 16:41 Board Certified Radiologist. This report was verified electronically.
[2016-07-08] MEDS ORDERED: Vancomycin Consult Pharmacy 1 EA OTHER SCH (17:30)
[2016-07-08] MEDS ORDERED: MORPHINE SULFATE 4 MG/ML INJ IV PRN ×2 (17:30)
[2016-07-08] MEDS ORDERED: NALOXONE HCL 0.4 MG/ML AMP IV PRN (17:30)
[2016-07-08] MEDS ORDERED: ACETAMINOPHEN 325 MG TAB PO PRN (17:30)
[2016-07-08] MEDS ORDERED: ACETAMINOPHEN/HYDROcodone 325 MG/5 MG TAB PO PRN (17:30)
[2016-07-08] MEDS ORDERED: ACETAMINOPHEN/HYDROcodone 325 MG/7.5 MG TAB PO PRN (17:30)
[2016-07-08] MEDS ORDERED: MAGNESIUM HYDROXIDE SUSP 30 ML CUP PO PRN (17:30)
[2016-07-08] MEDS ORDERED: BISACODYL 10 MG SUPP RECTAL PRN (17:30)
[2016-07-08] MEDS: ONDANSETRON HCL 4 MG/2 ML VIAL IVP PRN (18:32)
--- NOTE | 2016-07-08 20:13 | HHI.HP ---
[facility] No Primary Care Physician Admission Diagnosis left foot infection/possible tenosynovitis Diagnoses: Chief Complaint: left foot infection Travel History International Travel<30 Days: No Contact w/Intl Traveler <30 Da: No Traveled to Known Affected Are: No History of Present Illness 46 years old female with history significant for IV drug abuse previous MRI seizure recently admitted to the hospital for left foot infection treatment and left AGAINST MEDICAL ADVICE 2 days ago because "she needed to go attend her cousin's "came back today complaining of worsening pain and swelling and redness on the dorsal surface of her left foot . Pain is 10 out of 10 with fever chills. I discussed with ED physician, podiatry was contacted and they recommended admission. Review of Systems Except as stated in HPI: all other systems reviewed are Neg all system reviewed with the patient which was negative except what is mentioned in HPI Past Family Social History Past Medical History Bipolar disease Chronic abdominal pain IV drug use Appendectomy History of ectopic History of I&D of the left hand abscess Past Surgical History as above does not cheating, that's living life before we are able Allergies: Coded Allergies: Sulfa (Verified Allergy, Severe, Rash, 07/08/16) *MDRO Multi-Drug Resistant Organism (Verified Adverse Reaction, Unknown, Cleared, 07/09/16) 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 Cleared per Infection Control: MRSA PCR negative - 01/01/2015 & 09/27/2015 Compazine (Verified Adverse Reaction, Unknown, ANGINA, 07/08/16) Magnesium Sulfate (Verified Adverse Reaction, Unknown, PRUITIC RASH, ) Terbutaline (Verified Adverse Reaction, Unknown, HEART RATE ELEVATES, 07/08) Family History reviewed with the patient not significant for contributory Social History positive IV drug abuse , smoking half pack per denied alchol abuse Physical Exam Vital Signs Vital Signs Date Time Temp Pulse Resp B/P Pulse Ox O2 Delivery O2 Flow Rate FiO2 07/08/16 18:22 96 21 07/08/16 17:52 98.3 69 18 151/102 96 07/08/16 16:31 71 16 137/90 97 07/08/16 14:28 94 07/08/16 13:46 98.0 82 16 146/102 98 Physical Exam GENERAL: This is a well-nourished, well-developed patient, in no apparent distress. SKIN: No rashes, ecchymoses or lesions. Cool and dry. HEAD: Atraumatic. Normocephalic. No temporal or scalp tenderness. EYES: Pupils equal round and reactive. Extraocular motions intact. No scleral icterus. No injection or drainage. ENT: Nose without bleeding, purulent drainage or septal hematoma. Throat without erythema, tonsillar hypertrophy or exudate. Uvula midline. Airway patent. NECK: Trachea midline. No JVD or lymphadenopathy. Supple, nontender, no meningeal signs. CARDIOVASCULAR: Regular rate and rhythm without murmurs, gallops, or rubs. RESPIRATORY: Clear to auscultation. Breath sounds equal bilaterally. No wheezes , rales, or rhonchi. GASTROINTESTINAL: Abdomen soft, non-tender, nondistended. No hepato-splenomegaly , or palpable masses. No guarding. MUSCULOSKELETAL: Extremities without clubbing, cyanosis, or edema. left dorsal foot swelling, redness and NEUROLOGICAL: Awake and alert. Cranial nerves II through XII intact. Motor and sensory grossly within normal limits. Five out of 5 muscle strength in all muscle groups. Normal speech. Laboratory Laboratory Tests Test 07/08/16 07/08/16 14:40 14:44 White Blood Count 6.6 Red Blood Count 3.95 Hemoglobin 9.8 Hematocrit 31.1 Mean Corpuscular Volume 78.7 Mean Corpuscular Hemoglobin 24.8 Mean Corpuscular Hemoglobin 31.5 Concent Red Cell Distribution Width 14.9 Platelet Count 319 Mean Platelet Volume 7.9 Neutrophils (%) (Auto) 48.0 Lymphocytes (%) (Auto) 39.8 Monocytes (%) (Auto) 8.1 Eosinophils (%) (Auto) 3.4 Basophils (%) (Auto) 0.7 Neutrophils # (Auto) 3.3 Lymphocytes # (Auto) 2.6 Monocytes # (Auto) 0.5 Eosinophils # (Auto) 0.2 Basophils # (Auto) 0.0 CBC Comment AUTO DIFF Differential Comment AUTO DIFF CONFIRMED Sodium Level 140 Potassium Level 3.5 Chloride Level 105 Carbon Dioxide Level 27.3 Anion Gap 8 Blood Urea Nitrogen 5 Creatinine 1.00 Estimat Glomerular Filtration 60 Rate Random Glucose 112 Calcium Level 8.5 Total Bilirubin 0.3 Aspartate Amino Transf 19 (AST/SGOT) Alanine Aminotransferase 16 (ALT/SGPT) Alkaline Phosphatase 98 Total Protein 7.1 Albumin 3.4 Lactic Acid Level 1.1 Date/Time Procedure Status Source Growth 07/08/16 14:45 Aerobic Blood Culture Received Blood Peripheral Pending 07/08/16 14:45 Anaerobic Blood Culture Received Blood Peripheral Pending Result Diagram: 07/08/16 1440 07/08/16 1440 Assessment and Plan Assessment and Plan 46 years old female with history of IV drug abuse and lives with infection, left AMA a few days ago came back today with Worsening left dorsal foot redness swelling and pain possible abscess/cellulitis -Patient needs to be on Zosyn and Vanco, resume those -Consult podiatry and ID -pain mangment , be aware of tapering doses -bcx sent -chrt reviewed by me from previous hospitalization Bipolar disease -Continue home med Chronic pain and history of IVDU -Continue gabapentin, daily assessment of her pain Tobaccoan IV drugs abuse -patient counseled extensively DVT prophylaxis with SCD and heparin Discussed Condition With patient in ED physician Physician Certification 2 Midnight Certification Type: Admission for Inpatient Services Order for Inpatient Services The services are ordered in accordance with Medicare regulations or non- Medicare payer requirements, as applicable. In the case of services not specified as inpatient-only, they are appropriately provided as inpatient services in accordance with the 2-midnight benchmark. Estimated LOS (days): 4 days is the estimated time the patient will need to remain in the hospital, assuming treatment plan goals are met and no additional complications. Post-Hospital Plan: Not yet determined Sissy Tadeo MD July 08, 2016 20:13
[2016-07-08] MEDS ORDERED: oxyCODONE/ACETAMINOPHEN 5 MG/325 MG TAB PO PRN (20:15)
[2016-07-08] MEDS: oxyCODONE/ACETAMINOPHEN 10 MG/325 MG TAB PO PRN (21:47)
[2016-07-08] MEDS: HEPARIN SODIUM - SQ 10,000 UNITS/ML VIAL SQ SCH (21:49)
[2016-07-08] MEDS: PIPERACIL-TAZO 4.5 GM PREMIX 100 ML IV SCH (21:50)
[2016-07-08] MEDS ORDERED: clonazePAM 1 MG TAB PO ONE (23:00)
[2016-07-08] MEDS ORDERED: busPIRone HCL 5 MG TAB PO ONE (23:00)
[2016-07-08] MEDS ORDERED: QUEtiapine FUMARATE 200 MG TAB PO ONE (23:15)
[2016-07-08] MEDS ORDERED: GABAPENTIN 300 MG CAP PO ONE (23:15)
[2016-07-09] MEDS: PIPERACIL-TAZO 4.5 GM PREMIX 100 ML IV SCH ×3 (03:26→13:16)
[2016-07-09 04:00] VITALS: BP 109/80; PULSE 53; RESP 20; TEMP 96.5; O2SAT 97
[2016-07-09] MEDS ORDERED: VANCOMYCIN INJ 1,150 MG in SODIUM CHLOR 0.9% 250 ML INJ 250 ML IV SCH (06:00)
[2016-07-09] MEDS: HEPARIN SODIUM - SQ 10,000 UNITS/ML VIAL SQ SCH ×2 (06:00→13:16)
[2016-07-09 08:00] VITALS: BP 145/98; PULSE 57; RESP 19; TEMP 96.4; O2SAT 98
[2016-07-09] MEDS: busPIRone HCL 5 MG TAB PO SCH ×2 (08:12→13:16)
[2016-07-09] MEDS: oxyCODONE/ACETAMINOPHEN 10 MG/325 MG TAB PO PRN (08:12)
[2016-07-09] MEDS ORDERED: clonazePAM 1 MG TAB PO SCH (09:00)
[2016-07-09] MEDS ORDERED: QUEtiapine FUMARATE 200 MG TAB PO SCH (09:00)
[2016-07-09] MEDS ORDERED: BACITRACIN TOP OINT 15 GM TUBE TOPICAL SCH (09:00)
[2016-07-09] MEDS ORDERED: GABAPENTIN 300 MG CAP PO SCH (09:00)
[2016-07-09 09:46] LABS: BASOPHIL # 0.1 TH/MM3 (0-0.2); BASOPHIL % 1.3 % (0.0-2.0); EOSINOPHIL # 0.2 TH/MM3 (0-0.4); EOSINOPHIL % 4.9 % (0.0-4.0); HEMATOCRIT 30.5 % (35.0-46.0); LYMPH % 46.2 % (9.0-44.0); LYMPHOCYTE # 2.2 TH/MM3 (1.0-4.8); MEAN CELL VOLUME 78.7 FL (80.0-100.0); MEAN CORPUSCULAR HEMOGLOBIN 24.9 PG (27.0-34.0); MEAN CORPUSCULAR HGB CONC 31.6 % (32.0-36.0); NEUT % 40.6 % (16.0-70.0); PLATELET COUNT 307 TH/MM3 (150-450); RED BLOOD COUNT 3.88 MIL/MM3 (4.00-5.30); RED CELL DISTRIBUTION WIDTH 14.9 % (11.6-17.2); WHITE BLOOD COUNT 4.8 TH/MM3 (4.0-11.0)
[2016-07-09 09:47] LABS: HEMO FLAGS AUTO DIFF
[2016-07-09 09:56] LABS: POTASSIUM 3.7 MEQ/L (3.5-5.1)
[2016-07-09 09:59] LABS: BICARBONATE 26.8 MEQ/L (21.0-32.0)
[2016-07-09] MEDS: ONDANSETRON HCL 4 MG/2 ML VIAL IVP PRN (10:22)
[2016-07-09 10:25] LABS: SCAN/DIFF AUTO DIFF CONFIRMED
[2016-07-09 12:09] VITALS: BP 105/59; PULSE 68; RESP 20; TEMP 98.3; O2SAT 93
--- NOTE | 2016-07-09 13:38 | HHI.PR ---
Addendum to Inpatient Note Addendum Reason: Additional Documentation Additional Information I was notified by nursing that the patient again is leaving the hospital AMA. Usha Vanessa MD July 09, 2016 13:38
--- NOTE | 2016-07-09 14:09 | MB ---
cc: LYDIA SNOWDEN DATE OF CONSULTATION: 07/09/2016 REASON FOR CONSULTATION Left foot infection. HISTORY OF PRESENT ILLNESS Ms. Pineda is a 46-year-old IV drug abuser who was admitted on the for a left foot infection. My partner Dr. Alberto did a surgical incision and drainage of the left foot abscess with packing. It was recommended by infectious disease to have IV Zosyn until symptoms resolved, however, the patient left AMA. She returned to the ER a few days later complaining only of pain and then after she was not prescribed any medications, within a day or two she called Dr. Alberto's office complaining of pain and copious amounts of purulent drainage but had missed her followup postop appointment. At that time he advised her that if she was having purulent drainage she should return to the ER. She did so and was admitted. She is very lethargic this morning and challenging to interview but states that she does have a lot of pain in the left foot and she feels that it needs to be "cut open". PAST MEDICAL HISTORY 1. Seizure. 2. Left foot infection. 3. Bipolar disorder. 4. Chronic abdominal pain. 5. History of ectopic . PAST SURGICAL HISTORY 1. Appendectomy. 2. I&D of the left hand. 3. I&D of the left foot. MEDICATIONS Please see list. ALLERGIES SULFA, COMPAZINE, MAGNESIUM, TERBUTALINE. FAMILY HISTORY Noncontributory. SOCIAL HISTORY The patient is IV drug abuser and smokes half-pack of tobacco a day. VITAL SIGNS: Temperature is 98.3 which is also the T-max. Pulse 68, respiratory rate 20, blood pressure 105/59, pulse ox 93% O2 on room air. LABORATORY DATA White count is 4.3, hemoglobin 9.6, hematocrit 30.5, platelets 307, sed rate 10. Sodium 142, potassium 3.7, chloride 109, carbon dioxide 26.8, BUN 5, C-reactive protein 0.85. Blood cultures are negative x1 day. IMAGING STUDIES Foot x-ray is negative for any gas in the soft tissue or signs of cortical erosion, there is mild dorsal soft tissue swelling noted. PHYSICAL EXAMINATION Physical exam shows palpable DP and PT pulses. Cap fill time less than 3 seconds. The right foot is unremarkable. The left foot has a healing incision on the dorsal central aspect with sutures intact. No erythema on the dorsal lateral aspect of the incision site. There is what appears to be a hematoma, there is some bluish-blackish discoloration to the skin but the skin is completely viable. It is soft to touch but does not feel fluid filled. There is tenderness with palpation. ASSESSMENT/PLAN 1. Left foot status post I&D with Dr. Alberto. 2. Left foot dorsal mild hematoma. - The patient does not appear acutely infected at this time, there is no erythema, no elevated white count, no fevers. The only abnormality is slightly elevated C-reactive protein. - I advised ice and a compressive dressing to help reduce the ecchymosis and the discomfort in the left foot. - Suggest continued IV antibiotics and monitoring for another 24 hours but no surgical intervention planned at this time from a podiatric standpoint. -Will continue to monitor the patient while she is in-house. Thank you for this consultation. Lydia SORIA/MARYANNE /1:17 PM /1:37 PM MTDOsmar
[2016-07-11] MEDS ORDERED: PHARMACY ORDERED LAB ONE (11:45)
== END 2016-07-09 14:28 | disposition left against medical advice (07) | DRG 603 ==
LOC: PHED 13:42 → PHEDA 15:59 → PH5A 17:06
PROVIDERS: ADMIT Family Medicine; ATTEND Family Medicine
DX: L03.116 Cellulitis of left lower limb (principal); I10 Essential (primary) hypertension; I25.2 Old myocardial infarction; F11.10 Opioid abuse, uncomplicated; C53.9 Malignant neoplasm of cervix uteri, unspecified; K21.9 Gastro-esophageal reflux disease without esophagitis; G47.00 Insomnia, unspecified; G89.29 Other chronic pain; M54.9 Dorsalgia, unspecified; J44.9 Chronic obstructive pulmonary disease, unspecified; S90.32XA Contusion of left foot, initial encounter; R79.82 Elevated C-reactive protein (CRP); F31.9 Bipolar disorder, unspecified; F41.9 Anxiety disorder, unspecified; F12.90 Cannabis use, unspecified, uncomplicated; F17.210 Nicotine dependence, cigarettes, uncomplicated; Z88.2 Allergy status to sulfonamides; Z86.14 Personal history of Methicillin resistant Staphylococcus aureus infection
CPT/HCPCS: 73620; 80048; 80053; 82948; 83605; 85025; 85652; 86140; 87040; 96365; 96375; J2270; J2405; J2543; J3370; J7030; J7050

== ENCOUNTER 2016-07-16 16:06 | Inpatient (IN) | payer SELFPAY ==
[~2016-07-16] VITALS: Ht 162.6 cm; Wt 78.6 kg
[~2016-07-16 16:06] MED LIST changes: +KLON2TAB PO; -LEVA500T PO
[2016-07-16 16:19] VITALS: BP 117/83; PULSE 89; RESP 19; TEMP 97.8; O2SAT 98
[2016-07-16] MEDS ORDERED: ACETAMINOPHEN/HYDROcodone 325 MG/5 MG TAB PO ONE (18:00)
[2016-07-16] MEDS ORDERED: VANCOMYCIN INJ 1,000 MG in SODIUM CHLOR 0.9% 250 ML INJ 250 ML IV ONE (18:00)
[2016-07-16] MEDS ORDERED: PIPERACIL-TAZO 3.375 GM PREMIX 50 ML IV ONE (18:00)
[2016-07-16 18:08] LABS: AUTOMATED NEUTROPHIL # 3.9 TH/MM3 (1.8-7.7); BASOPHIL # 0.2 TH/MM3 (0-0.2); BASOPHIL % 2.5 % (0.0-2.0); EOSINOPHIL # 0.1 TH/MM3 (0-0.4); EOSINOPHIL % 1.6 % (0.0-4.0); HEMATOCRIT 33.6 % (35.0-46.0); HEMO FLAGS DIFF FINAL; LYMPH % 36.3 % (9.0-44.0); LYMPHOCYTE # 2.8 TH/MM3 (1.0-4.8); MEAN CELL VOLUME 78.9 FL (80.0-100.0); MEAN CORPUSCULAR HEMOGLOBIN 25.6 PG (27.0-34.0); MEAN CORPUSCULAR HGB CONC 32.4 % (32.0-36.0); MONO % 8.5 % (0.0-8.0); NEUT % 51.1 % (16.0-70.0); PLATELET COUNT 320 TH/MM3 (150-450); RED BLOOD COUNT 4.26 MIL/MM3 (4.00-5.30); RED CELL DISTRIBUTION WIDTH 15.2 % (11.6-17.2); WHITE BLOOD COUNT 7.6 TH/MM3 (4.0-11.0)
--- NOTE | 2016-07-16 18:10 | PD ---
HPI Chief Complaint: Edema Time Seen by Provider: 17:29 Travel History International Travel<30 days: No Contact w/Intl Traveler<30days: No Traveled to known affect area: No History of Present Illness HPI 46-year-old female complaining the pain swelling the left foot. Patient has history of left foot cellulitis and abscess, status post I&D recently by Dr. Alberto. Patient was recommended to receive IV Zosyn for the left foot infection. Patient however left AMA from the hospital and has been back and forth several times for treatment of left foot infection. Patient left AMA again 7 days ago from the hospital. Patient has not had any outpatient treatment for left foot infection. Patient contacted Dr. Alberto again today and was advised to go back to emergency room to be admitted for IV antibiotic treatment. Patient complaining of severe pain localized to left foot. Patient denies any pain radiation. Patient denies any fever chills at home. On a scale of 1-10 the pain is a 10. PFSH Past Medical History Asthma: Yes Autoimmune Disease: No Bipolar Disorder: Yes Anxiety: Yes Depression: Yes Heart Rhythm Problems: Yes (PALPITATIONS) Cancer: Yes (CERVICAL, needs surgery yet) Cardiac Catheterization: No Cardiovascular Problems: Yes (HTN, [place]) High Cholesterol: No Congestive Heart Failure: No COPD: Yes Diabetes: No Diminished Hearing: No Endocrine: No Gastrointestinal Disorders: Yes (COLITIS) GERD: Yes Genitourinary: Yes (UTI, polynephritis) Headaches: Yes Heparin Induced Thrombocytopen: No Herniated Disk: Yes Hypertension: Yes (during stress or pain only) Immune Disorder: No Implanted Vascular Access Dvce: No Insomnia: Yes Kidney Stones: Yes Musculoskeletal: Yes (CHRONIC BACK PAIN) Neurologic: Yes (BRAIN INJURY) Psychiatric: Yes Reproductive: Yes Respiratory: Yes (COPD) Immunizations Current: Yes Migraines: Yes Myocardial Infarction: Yes (2011) Seizures: Yes (from coming off Xanax, hasn't had in 6 months) Thyroid Disease: No Ulcer: Yes PNEUMOCCOCAL Vaccine (Year): 2 ?: Not LMP: 2 WEEKS Menopausal: No : 10 Para: 6 Miscarriage: 3 : 1 Ectopic : Yes (1994) Ovarian Cysts: Yes Dilation and Curettage (D&C): Yes Tubal Ligation: Yes Past Surgical History Abdominal Surgery: Yes (appendectomy ) Appendectomy: Yes Cardiac Surgery: No Coronary Artery Bypass Graft: No Ear Surgery: No Endocrine Surgery: No Eye Surgery: No Genitourinary Surgery: No Gynecologic Surgery: Yes (ectopic prenancy removed) Oral Surgery: No Thoracic Surgery: No Other Surgery: Yes (LEFT HAND SURGERY) Family History Family Myocardial Infarction: No Social History Alcohol Use: No Tobacco Use: Yes (02/24 ppd) Substance Use: Yes (weed, IV DILAUDID /PT STATES STOPPED USING) Allergies-Medications (Allergen,Severity, Reaction): Coded Allergies: Sulfa (Verified Allergy, Severe, Rash, 07/16/16) *MDRO Multi-Drug Resistant Organism (Verified Adverse Reaction, Unknown, Cleared, 07/16/16) 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 Cleared per Infection Control: MRSA PCR negative - 01/01/2015 & 09/27/2015 Compazine (Verified Adverse Reaction, Unknown, ANGINA, 07/16/16) Magnesium Sulfate (Verified Adverse Reaction, Unknown, PRUITIC RASH, ) Terbutaline (Verified Adverse Reaction, Unknown, HEART RATE ELEVATES, 07/16) Reported Meds & Prescriptions Reported Meds & Active Scripts Active Gabapentin 600 Mg Tab 1,200 Mg PO BID Reported Klonopin (Clonazepam) 2 Mg Tab 2 Mg PO BID Seroquel (Quetiapine Fumarate) 200 Mg Tab 200 Mg PO BID Buspirone (Buspirone HCl) 15 Mg Tab 15 Mg PO TID Vistaril (Hydroxyzine Pamoate) 50 Mg Cap 100 Mg PO BID Review of Systems General / Constitutional: No: Fever Eyes: No: Visual changes HENT: No: Headaches Cardiovascular: No: Chest Pain or Discomfort Respiratory: No: Shortness of Breath Gastrointestinal: No: Abdominal Pain Genitourinary: No: Dysuria Musculoskeletal: Positive: Pain Skin: No Rash Neurologic: No: Weakness Psychiatric: No: Depression Endocrine: No: Polydipsia Hematologic/Lymphatic: No: Easy Bruising Physical Exam Narrative GENERAL: Well-nourished, well-developed patient. SKIN: Focused skin assessment warm/dry. HEAD: Normocephalic. EYES: No scleral icterus. No injection or drainage. NECK: Supple, trachea midline. No JVD or lymphadenopathy. CARDIOVASCULAR: Regular rate and rhythm without murmurs, gallops, or rubs. RESPIRATORY: Breath sounds equal bilaterally. No accessory muscle use. GASTROINTESTINAL: Abdomen soft, non-tender, nondistended. MUSCULOSKELETAL: No cyanosis, or edema. BACK: Nontender without obvious deformity. No CVA tenderness. Patient has redness swelling induration dorsal aspect of the left foot. Redness overlying the soft tissue swelling. Full range of motion of the toes. Data Data Last Documented VS Vital Signs Date Time Temp Pulse Resp B/P Pulse Ox O2 Delivery O2 Flow Rate FiO2 07/16/16 16:19 97.8 89 19 117/83 98 Orders Complete Blood Count With Diff (07/16/16 17:39) Comprehensive Metabolic Panel (07/16/16 17:39) Prothrombin Time / Inr (Pt) (07/16/16 17:39) Act Partial Throm Time (Ptt) (07/16/16 17:39) Blood Culture (07/16/16 17:39) C-Reactive Protein (Crp) (07/16/16 17:39) Urinalysis - C+S If Indicated (07/16/16 17:39) Westergren Sedimentation Rate (07/16/16 17:39) Chest, Single Ap (07/16/16 17:39) Iv Access Insert/Monitor (07/16/16 17:39) Ecg Monitoring (07/16/16 17:39) Oximetry (07/16/16 17:39) Ed Urine Pregnancytest Poc (07/16/16 17:39) Drug Screen, Random Urine (07/16/16 17:39) Foot, Complete ([id number]) (07/16/16 17:39) Mri Foot W&W/O Contrast (07/16/16 ) Vancomycin Inj (Vancomycin Inj) (07/16/16 18:00) Piperacil-Tazo 3.375 Gm Premix (Zosyn 3. (07/16/16 18:00) Lactic Acid (07/16/16 17:53) Acetamin-Hydrocod 325-5 Mg ([place] 5-325 (07/16/16 18:00) Labs Laboratory Tests Test 07/16/16 07/16/16 07/16/16 17:45 17:48 18:10 White Blood Count 7.6 TH/MM3 Red Blood Count 4.26 MIL/MM3 Hemoglobin 10.9 GM/DL Hematocrit 33.6 % Mean Corpuscular Volume 78.9 FL Mean Corpuscular Hemoglobin 25.6 PG Mean Corpuscular Hemoglobin 32.4 % Concent Red Cell Distribution Width 15.2 % Platelet Count 320 TH/MM3 Mean Platelet Volume 9.3 FL Neutrophils (%) (Auto) 51.1 % Lymphocytes (%) (Auto) 36.3 % Monocytes (%) (Auto) 8.5 % Eosinophils (%) (Auto) 1.6 % Basophils (%) (Auto) 2.5 % Neutrophils # (Auto) 3.9 TH/MM3 Lymphocytes # (Auto) 2.8 TH/MM3 Monocytes # (Auto) 0.6 TH/MM3 Eosinophils # (Auto) 0.1 TH/MM3 Basophils # (Auto) 0.2 TH/MM3 CBC Comment DIFF FINAL Differential Comment Prothrombin Time 10.7 SEC Prothromb Time International 1.0 RATIO Ratio Activated Partial 30.0 SEC Thromboplast Time Sodium Level 141 MEQ/L Potassium Level 3.9 MEQ/L Chloride Level 105 MEQ/L Carbon Dioxide Level 29.4 MEQ/L Anion Gap 7 MEQ/L Blood Urea Nitrogen 9 MG/DL Creatinine 0.84 MG/DL Estimat Glomerular Filtration 74 ML/MIN Rate Random Glucose 92 MG/DL Lactic Acid Level 0.7 mmol/L Calcium Level 9.2 MG/DL Total Bilirubin 0.3 MG/DL Aspartate Amino Transf 21 U/L (AST/SGOT) Alanine Aminotransferase 19 U/L (ALT/SGPT) Alkaline Phosphatase 115 U/L Total Protein 8.2 GM/DL Albumin 3.8 GM/DL Erythrocyte Sedimentation Rate 34 mm/hr Urine Color STRAW Urine Turbidity CLEAR Urine pH 6.5 Urine Specific [place] 1.006 Urine Protein NEG mg/dL Urine Glucose (UA) NEG mg/dL Urine Ketones NEG mg/dL Urine Occult Blood NEG Urine Nitrite NEG Urine Bilirubin NEG Urine Leukocyte Esterase TRACE Urine RBC 0-2 /hpf Urine WBC 3-5 /hpf Urine Squamous Epithelial 6-8 /hpf Cells Urine Bacteria FEW /hpf Microscopic Urinalysis Comment CULT NOT INDICATED Urine Amphetamines Screen NEG Urine Cocaine Screen NEG Urine Cannabinoids Screen POS MDM Medical Decision Making Medical Screen Exam Complete: Yes Emergency Medical Condition: Yes Interpretation(s) Last Impressions Foot X-Ray 07/16/16 4082 Signed Impressions: Service Date/Time: Saturday, July 16, 2016 17:55 - CONCLUSION: Stable examination. Soft tissue swelling persists. Samm Garcia MD Chest X-Ray 07/16/16 1739 Signed Impressions: Service Date/Time: Saturday, July 16, 2016 17:58 - CONCLUSION: No acute disease. Samm Garcia MD 1844 PM. CBC WBC 7.6. Normal differential. Sedimentation rate 34. CMP within normal limit. Lactic acid 0.7. UA is negative. Differential Diagnosis Differential diagnosis including cellulitis, abscess, osteomyelitis. Narrative Course 46-year-old female with persistent left foot infection and abscess. Patient has been in and out of the hospital several times recently. Vancomycin 1 g IV. Zosyn 3.375 g IV given. Patient will be admitted with consultation to Dr. Alberto,, sponge hooker. X-ray of left foot and MRI left foot will be ordered. Diagnosis Primary Impression: Foot abscess, left Admitting Information Admitting Physician Requests: Admit Amado Peralta MD July 16, 2016 18:10
--- NOTE | 2016-07-16 18:11 | RADHPO ---
EXAM DATE/TIME: 07/16/2016 17:58 [facility] COMPARISON: CHEST SINGLE AP, March 16, 2016, 7:58. INDICATIONS : Shortness of breath MEDICAL HISTORY : Chronic obstructive pulmonary disease. SURGICAL HISTORY : None. ENCOUNTER: Initial ACUITY: 1 week PAIN SCORE: 0/10 LOCATION: Bilateral chest FINDINGS: A single view of the chest demonstrates the lungs to be symmetrically aerated without evidence of mas s, infiltrate or effusion. The cardiomediastinal contours are unremarkable. Osseous structures are intact. CONCLUSION: No acute disease. Samm Garcia MD on July 16, 2016 at 18:09 Board Certified Radiologist. This report was verified electronically.
--- NOTE | 2016-07-16 18:11 | RADHPO ---
EXAM DATE/TIME: 07/16/2016 17:55 [facility] COMPARISON: FOOT LEFT COMPLETE ([id number]), June 29, 2016, 15:43. INDICATIONS : Left foot redness, swelling for 2 weeks post left foot surgery MEDICAL HISTORY : None. SURGICAL HISTORY : Left foot surgery ENCOUNTER: Initial ACUITY: 2 weeks PAIN SCORE: 10/10 LOCATION: Left dorsal surface of foot FINDINGS: Normal bone density. No fracture or dislocation. Soft tissue swelling of the dorsal aspect of the mian t is identified. There are stable tiny subcortical cysts at the first metatarsal head. CONCLUSION: Stable examination. Soft tissue swelling persists. Samm Garcia MD on July 16, 2016 at 18:08 Board Certified Radiologist. This report was verified electronically.
[2016-07-16 18:18] LABS: CHLORIDE 105 MEQ/L (98-107); POTASSIUM 3.9 MEQ/L (3.5-5.1); SODIUM (NA) 141 MEQ/L (136-145)
[2016-07-16 18:21] LABS: PROTHROMBIN TIME - PATIENT 10.7 SEC (9.8-11.6)
[2016-07-16 18:23] LABS: BLOOD, URINE NEG (NEG); GLUCOSE,URINE NEG (NEG); KETONE, URINE NEG (NEG); NITRITE,URINE NEG (NEG); PH, URINE 6.5 (5.0-8.5)
[2016-07-16 18:24] LABS: ANION GAP 7 MEQ/L (5-15); BICARBONATE 29.4 MEQ/L (21.0-32.0); BLOOD UREA NITROGEN 9 MG/DL (7-18)
[2016-07-16 18:27] LABS: ALT (GPT) 19 U/L (10-53); AST (GOT) 21 U/L (15-37); GLOMERULAR FILTRATION RATE 74 ML/MIN (>89)
[2016-07-16 18:28] LABS: TOTAL BILIRUBIN ADULT 0.3 MG/DL (0.2-1.0)
[2016-07-16 18:30] LABS: BACTERIA, URINE FEW /hpf; COMMENT (UR) CULT NOT INDICATED; CULTURE IF INDICATED CULT NOT INDICATED; RBC, URINE 0-2 /hpf (0-3); URINE COLOR STRAW (YELLW/STRAW)
[2016-07-16 18:30] LABS: ALKALINE PHOSPHATASE 115 U/L (45-117)
[2016-07-16 18:33] LABS: AMPHETAMINE, URINE NEG (NEG); COCAINE, URINE NEG (NEG)
[2016-07-16 18:43] LABS: BARBITURATES, URINE NEG (NEG)
[2016-07-16 18:59] VITALS: BP 139/79; PULSE 77; RESP 18; O2SAT 97
[2016-07-16] MEDS ORDERED: NALOXONE HCL 0.4 MG/ML AMP IV PRN (20:00)
[2016-07-16] MEDS ORDERED: SODIUM CHLORIDE 0.9% FLUSH 10 ML FLUSH IV FLUSH PRN (20:00)
[2016-07-16] MEDS ORDERED: Vancomycin Consult Pharmacy 1 EA OTHER SCH (20:15)
[2016-07-16] MEDS: SODIUM CHLORIDE 0.9% FLUSH 10 ML FLUSH IV FLUSH SCH (20:16)
[2016-07-16 21:05] VITALS: BP 135/80; PULSE 76; RESP 18; O2SAT 98
[2016-07-16 22:30] VITALS: BP 135/72; PULSE 65; RESP 16; TEMP 98.5; O2SAT 97
[2016-07-16] MEDS ORDERED: CLON0.2T PO (22:35)
[2016-07-16] MEDS ORDERED: MORPHINE SULFATE 4 MG/ML INJ IV PUSH ONE (22:45)
[2016-07-17] VITALS: BP 121/82; PULSE 63; RESP 16; TEMP 97.8; O2SAT 97
[2016-07-17] MEDS: KETOROLAC TROMETHAMINE 30 MG/ML (IVP) VIAL IV PUSH PRN ×2 (01:48→09:22)
[2016-07-17] MEDS: PIPERACIL-TAZO 4.5 GM PREMIX 100 ML IV SCH ×4 (01:49→20:04)
[2016-07-17 04:00] VITALS: BP 105/66; PULSE 63; RESP 14; TEMP 98.3; O2SAT 97
[2016-07-17] MEDS: VANCOMYCIN 1,000 MG/NS 250 ML IV SCH ×4 (06:19→18:11)
--- NOTE | 2016-07-17 07:25 | PD.CONS ---
History of Present Illness Service podiatry Consult Requested By ed Reason for Consult Left foot abscess Primary Care Physician Unknown Diagnoses: History of Present Illness 46 year old female seen bedside this morning. Pthas history of iv drug abuse, history of leaving AMA, presents with post op hematoma/abscess for 3 days s/p I and D per Dr. Alberto several weeks ago. Pt is awake alert and oriented today. Past Family Social History Allergies: Coded Allergies: Sulfa (Verified Allergy, Severe, Rash, 07/16/16) *MDRO Multi-Drug Resistant Organism (Verified Adverse Reaction, Unknown, Cleared, 07/16/16) 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 Cleared per Infection Control: MRSA PCR negative - 01/01/2015 & 09/27/2015 Compazine (Verified Adverse Reaction, Unknown, ANGINA, 07/16/16) Magnesium Sulfate (Verified Adverse Reaction, Unknown, PRUITIC RASH, ) Terbutaline (Verified Adverse Reaction, Unknown, HEART RATE ELEVATES, 07/16) Physical Exam Vital Signs Vital Signs Date Time Temp Pulse Resp B/P Pulse Ox O2 Delivery O2 Flow Rate FiO2 07/17/16 04:00 98.3 63 14 105/66 97 07/17/16 00:00 97.8 63 16 121/82 97 07/16/16 22:30 65 07/16/16 22:30 98.5 65 16 135/72 97 07/16/16 22:13 18 98 07/16/16 21:05 76 18 98 Room Air 07/16/16 21:05 76 18 135/80 98 Room Air 07/16/16 19:01 18 07/16/16 18:59 18 97 Room Air 07/16/16 18:59 77 18 97 Room Air 07/16/16 18:59 77 18 139/79 97 Room Air 07/16/16 16:19 97.8 89 19 117/83 98 Physical Exam GENERAL: This is a well-nourished, well-developed patient, in no apparent distress. SKIN: No rashes, ecchymoses or lesions. Cool and dry. HEAD: Atraumatic. Normocephalic. No temporal or scalp tenderness. EYES: Pupils equal round and reactive. Extraocular motions intact. No scleral icterus. No injection or drainage. ENT: Nose without bleeding, purulent drainage or septal hematoma. Throat without erythema, tonsillar hypertrophy or exudate. Uvula midline. Airway patent. NECK: Trachea midline. No JVD or lymphadenopathy. Supple, nontender, no meningeal signs. CARDIOVASCULAR: Regular rate and rhythm without murmurs, gallops, or rubs. RESPIRATORY: Clear to auscultation. Breath sounds equal bilaterally. No wheezes , rales, or rhonchi. GASTROINTESTINAL: Abdomen soft, non-tender, nondistended. No hepato-splenomegaly , or palpable masses. No guarding. MUSCULOSKELETAL: Extremities without clubbing, cyanosis, or edema. No joint tenderness, effusion, or edema noted. No calf tenderness. Negative Homans sign bilaterally. NEUROLOGICAL: Awake and alert. Cranial nerves II through XII intact. Motor and sensory grossly within normal limits. Five out of 5 muscle strength in all muscle groups. Normal speech. Laboratory Laboratory Tests Test 07/16/16 07/16/16 07/16/16 17:45 17:48 18:10 White Blood Count 7.6 Red Blood Count 4.26 Hemoglobin 10.9 Hematocrit 33.6 Mean Corpuscular Volume 78.9 Mean Corpuscular Hemoglobin 25.6 Mean Corpuscular Hemoglobin 32.4 Concent Red Cell Distribution Width 15.2 Platelet Count 320 Mean Platelet Volume 9.3 Neutrophils (%) (Auto) 51.1 Lymphocytes (%) (Auto) 36.3 Monocytes (%) (Auto) 8.5 Eosinophils (%) (Auto) 1.6 Basophils (%) (Auto) 2.5 Neutrophils # (Auto) 3.9 Lymphocytes # (Auto) 2.8 Monocytes # (Auto) 0.6 Eosinophils # (Auto) 0.1 Basophils # (Auto) 0.2 CBC Comment DIFF FINAL Differential Comment Prothrombin Time 10.7 Prothromb Time International 1.0 Ratio Activated Partial 30.0 Thromboplast Time Sodium Level 141 Potassium Level 3.9 Chloride Level 105 Carbon Dioxide Level 29.4 Anion Gap 7 Blood Urea Nitrogen 9 Creatinine 0.84 Estimat Glomerular Filtration 74 Rate Random Glucose 92 Lactic Acid Level 0.7 Calcium Level 9.2 Total Bilirubin 0.3 Aspartate Amino Transf 21 (AST/SGOT) Alanine Aminotransferase 19 (ALT/SGPT) Alkaline Phosphatase 115 C-Reactive Protein 0.89 Total Protein 8.2 Albumin 3.8 Erythrocyte Sedimentation Rate 34 Urine Color STRAW Urine Turbidity CLEAR Urine pH 6.5 Urine Specific [place] 1.006 Urine Protein NEG Urine Glucose (UA) NEG Urine Ketones NEG Urine Occult Blood NEG Urine Nitrite NEG Urine Bilirubin NEG Urine Leukocyte Esterase TRACE Urine RBC 0-2 Urine WBC 3-5 Urine Squamous Epithelial 6-8 Cells Urine Bacteria FEW Microscopic Urinalysis Comment CULT NOT INDICATED Urine Opiates Screen NEG Urine Barbiturates Screen NEG Urine Amphetamines Screen NEG Urine Benzodiazepines Screen NEG Urine Cocaine Screen NEG Urine Cannabinoids Screen POS Date/Time Procedure Status Source Growth 07/16/16 17:50 Aerobic Blood Culture Received Blood Peripheral Pending 07/16/16 17:50 Anaerobic Blood Culture Received Blood Peripheral Pending Result Diagram: 07/16/16 1745 07/16/16 1745 Imaging Xray negative for bone involvement, soft tissue edema Course Left foot pulses palpable Foot very tender Dorsal incision healing, no dehiscnece no drainage with suture intact Left dorsolateral midfoot fluctuance, about 4 cm x 3 cm withlocalized redness not extending up ankle or distal to toes Pt can bend ankle up and down and wiggle toes Sensation intact, hypersensitivity Assessment and Plan Assessment and Plan Left foot hematoma/abscess -MRI pending -Once MRI may aspirate and culture Pt with history of complex bacterial infection I recommend pt be on IV antibiotics and consider rehab to allow for PICC Pt is very noncompliant so discussion with the team about a PICC is necessary upon D/C Continue broad IV ABX until culture obtained to narrow spectrum Thank you for the consult Ryan Bravo DPM July 17, 2016 07:25
[2016-07-17 08:00] VITALS: BP 129/83; PULSE 62; RESP 16; TEMP 98; O2SAT 98
[2016-07-17 09:13] LABS: AUTOMATED NEUTROPHIL # 2.5 TH/MM3 (1.8-7.7); BASOPHIL # 0.1 TH/MM3 (0-0.2); BASOPHIL % 1.5 % (0.0-2.0); EOSINOPHIL # 0.2 TH/MM3 (0-0.4); EOSINOPHIL % 4.2 % (0.0-4.0); HEMO FLAGS DIFF FINAL; LYMPH % 38.5 % (9.0-44.0); MEAN CORPUSCULAR HEMOGLOBIN 25.2 PG (27.0-34.0); MEAN CORPUSCULAR HGB CONC 31.9 % (32.0-36.0); MONO % 8.1 % (0.0-8.0); NEUT % 47.7 % (16.0-70.0); PLATELET COUNT 278 TH/MM3 (150-450); RED BLOOD COUNT 3.92 MIL/MM3 (4.00-5.30); RED CELL DISTRIBUTION WIDTH 15.2 % (11.6-17.2); WHITE BLOOD COUNT 5.2 TH/MM3 (4.0-11.0)
[2016-07-17] MEDS: LACTOBACILLUS ACIDOPHILUS TAB PO SCH ×3 (09:22→18:10)
[2016-07-17] MEDS: SODIUM CHLORIDE 0.9% FLUSH 10 ML FLUSH IV FLUSH SCH ×2 (09:22→20:05)
[2016-07-17 09:54] LABS: POTASSIUM 3.9 MEQ/L (3.5-5.1)
[2016-07-17] MEDS ORDERED: LORazepam 2 MG/ML VIAL IV PUSH ONE (10:00)
[2016-07-17] MEDS: QUEtiapine FUMARATE 200 MG TAB PO SCH ×2 (10:22→20:07)
[2016-07-17] MEDS: clonazePAM 1 MG TAB PO SCH ×2 (10:23→20:06)
[2016-07-17] MEDS: GABAPENTIN 400 MG CAP PO SCH ×2 (10:23→20:06)
--- NOTE | 2016-07-17 11:29 | HHI.HP ---
HPI Service [facility] Primary Care Physician Unknown Admission Diagnosis left foot abscess Diagnoses: Chief Complaint: Foot pain Travel History International Travel<30 Days: No Contact w/Intl Traveler <30 Da: No Traveled to Known Affected Are: No History of Present Illness The patient is a 46-year-old female with past medical history of IV drug use who is presenting to the hospital with worsening left foot swelling and pain. She recently was admitted to the hospital for the same foot infection but left AGAINST MEDICAL ADVICE on 2 occasions. She says she was directed to the hospital this time because her left foot continued to swell and she had severe 10 out of 10 pain in the area. She says she last injected IV drugs in that foot about 4 weeks ago. She said she has quit using IV drugs. She notes that her left foot is very swollen and she believes it is still getting worse. She denies any associated pus formation. She says she has had significant sweating over the past few days. She has been taking Tylenol for that as she believes she has been having fevers. She is currently requesting increased pain medications. She said she talked with the [employer] earlier this morning. She says she will need an Ativan prior to the MRI. She also requested a nicotine patch. Review of Systems Except as stated in HPI: all other systems reviewed are Neg Past Family Social History Past Medical History Bipolar disease Ulcerative colitis Crohn's disease Mini stroke IV drug use Appendectomy History of ectopic History of I&D of a left hand abscess Allergies: Coded Allergies: Sulfa (Verified Allergy, Severe, Rash, 07/16/16) *MDRO Multi-Drug Resistant Organism (Verified Adverse Reaction, Unknown, Cleared, 07/16/16) 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 Cleared per Infection Control: MRSA PCR negative - 01/01/2015 & 09/27/2015 Compazine (Verified Adverse Reaction, Unknown, ANGINA, 07/16/16) Magnesium Sulfate (Verified Adverse Reaction, Unknown, PRUITIC RASH, ) Terbutaline (Verified Adverse Reaction, Unknown, HEART RATE ELEVATES, 07/16) Active Ordered Medications Current Medications Medications (Trade) Dose Ordered Sig/Tristan Route Start Time Stop Time Status Last Admin (NS Flush) 2 ml UNSCH PRN IV FLUSH 07/16/16 20:00 (NS Flush) 2 ml BID IV FLUSH 07/16/16 21:00 07/17/16 09:22 Naloxone HCl 0.4 mg 0.4 mg UNSCH PRN IV 07/16/16 20:00 Pharmacy Profile Note 0 ml @ 0 mls/hr UNSCH OTHER 07/16/16 20:15 (Zosyn 4.5 Gm Premix) 100 ml @ 200 mls/hr Q6H IV 07/17/16 02:00 07/17/16 09:39 Lactobacillus Acidophilus 1 tab 1 tab TID PO 07/17/16 09:00 07/17/16 09:22 (Vancomycin Inj/ NS 250 ml Inj) 250 ml @ 250 mls/hr Q12H IV 07/17/16 06:00 07/17/16 06:19 Miscellaneous Information SPECIFIC LAB TO BE NIELS... ONCE ONCE .XX 07/18/16 05:45 07/18/16 05:46 (Toradol Inj) 15 mg Q6H PRN IV PUSH 07/16/16 22:45 07/21/16 22:44 07/17/16 09:22 (KlonoPIN) 2 mg BID PO 07/17/16 10:00 07/17/16 10:23 (Neurontin) 1,200 mg BID PO 07/17/16 10:15 07/17/16 10:23 (Vistaril) 100 mg BID PO 07/17/16 10:00 07/17/16 10:23 (SEROquel) 200 mg BID PO 07/17/16 10:00 07/17/16 10:22 Family History Diabetes Colitis Social History The patient smokes half a pack of cigarettes daily. She says she quit using IV drugs. She does use marijuana a couple times a week. She denies alcohol use. Physical Exam Vital Signs Vital Signs Date Time Temp Pulse Resp B/P Pulse Ox O2 Delivery O2 Flow Rate FiO2 07/17/16 08:00 98.0 62 16 129/83 98 07/17/16 04:00 98.3 63 14 105/66 97 07/17/16 00:00 97.8 63 16 121/82 97 07/16/16 22:30 65 07/16/16 22:30 98.5 65 16 135/72 97 07/16/16 22:13 18 98 07/16/16 21:05 76 18 98 Room Air 07/16/16 21:05 76 18 135/80 98 Room Air 07/16/16 19:01 18 07/16/16 18:59 18 97 Room Air 07/16/16 18:59 77 18 97 Room Air 07/16/16 18:59 77 18 139/79 97 Room Air 07/16/16 16:19 97.8 89 19 117/83 98 Physical Exam GENERAL: Well-nourished, well-developed patient. SKIN: Focused skin assessment warm/dry. HEAD: Normocephalic, atraumatic. EYES: No scleral icterus. No injection or drainage. NECK: Supple, trachea midline. No JVD or lymphadenopathy. CARDIOVASCULAR: Regular rate and rhythm without murmurs, gallops, or rubs. RESPIRATORY: Breath sounds equal bilaterally. No accessory muscle use. GASTROINTESTINAL: Abdomen soft, non-tender, nondistended. MUSCULOSKELETAL: No cyanosis, trace edema in the left lower extremity. Patient has redness and swelling at the dorsal aspect of the left foot. Tender to palpation. Full range of motion of the toes. BACK: Nontender without obvious deformity. No CVA tenderness. PSYCH: Flattened affect. Laboratory Laboratory Tests Test 07/16/16 07/16/16 07/16/16 07/17/16 17:45 17:48 18:10 09:05 White Blood Count 7.6 5.2 Red Blood Count 4.26 3.92 Hemoglobin 10.9 9.9 Hematocrit 33.6 31.0 Mean Corpuscular Volume 78.9 79.0 Mean Corpuscular Hemoglobin 25.6 25.2 Mean Corpuscular Hemoglobin 32.4 31.9 Concent Red Cell Distribution Width 15.2 15.2 Platelet Count 320 278 Mean Platelet Volume 9.3 8.6 Neutrophils (%) (Auto) 51.1 47.7 Lymphocytes (%) (Auto) 36.3 38.5 Monocytes (%) (Auto) 8.5 8.1 Eosinophils (%) (Auto) 1.6 4.2 Basophils (%) (Auto) 2.5 1.5 Neutrophils # (Auto) 3.9 2.5 Lymphocytes # (Auto) 2.8 2.0 Monocytes # (Auto) 0.6 0.4 Eosinophils # (Auto) 0.1 0.2 Basophils # (Auto) 0.2 0.1 CBC Comment DIFF FINAL DIFF FINAL Differential Comment Prothrombin Time 10.7 Prothromb Time International 1.0 Ratio Activated Partial 30.0 Thromboplast Time Sodium Level 141 140 Potassium Level 3.9 3.9 Chloride Level 105 105 Carbon Dioxide Level 29.4 28.0 Anion Gap 7 7 Blood Urea Nitrogen 9 13 Creatinine 0.84 1.00 Estimat Glomerular Filtration 74 60 Rate Random Glucose 92 89 Lactic Acid Level 0.7 Calcium Level 9.2 8.4 Total Bilirubin 0.3 Aspartate Amino Transf 21 (AST/SGOT) Alanine Aminotransferase 19 (ALT/SGPT) Alkaline Phosphatase 115 C-Reactive Protein 0.89 Total Protein 8.2 Albumin 3.8 Erythrocyte Sedimentation Rate 34 Urine Color STRAW Urine Turbidity CLEAR Urine pH 6.5 Urine Specific [place] 1.006 Urine Protein NEG Urine Glucose (UA) NEG Urine Ketones NEG Urine Occult Blood NEG Urine Nitrite NEG Urine Bilirubin NEG Urine Leukocyte Esterase TRACE Urine RBC 0-2 Urine WBC 3-5 Urine Squamous Epithelial 6-8 Cells Urine Bacteria FEW Microscopic Urinalysis Comment CULT NOT INDICATED Urine Opiates Screen NEG Urine Barbiturates Screen NEG Urine Amphetamines Screen NEG Urine Benzodiazepines Screen NEG Urine Cocaine Screen NEG Urine Cannabinoids Screen POS Date/Time Procedure Status Source Growth 07/16/16 17:50 Aerobic Blood Culture Received Blood Peripheral Pending 07/16/16 17:50 Anaerobic Blood Culture Received Blood Peripheral Pending Result Diagram: 07/17/16 0905 07/17/16 09 Imaging Last Impressions Foot X-Ray 07/16/161738 Signed Impressions: Service Date/Time: Saturday, July 16, 2016 17:55 - CONCLUSION: Stable examination. Soft tissue swelling persists. Samm Garcia MD Chest X-Ray 07/16/161738 Signed Impressions: Service Date/Time: Saturday, July 16, 2016 17:58 - CONCLUSION: No acute disease. Samm Garcia MD Assessment and Plan Assessment and Plan Left foot abscess/cellulitis The pt has left AMA on two previous occasions during treatment for the same problem. S/t IVDU. Podiatry consult appreciated. Previous hospitalization wound culture of the foot grew Klebsiella pneumonia, Serratia marcescens and Pseudomonas aeruginosa. She also had bacteremia due to Stenotrophomonas. - continue Zosyn and vancomycin. - foot MRI per podiatry. Possible I&D pending results. - pain management with IV Toradol, oxycodone. - follow cultures. - consult infectious disease. Bipolar disease Mood stable at this time. - Continue home meds. Tobacco and IV drug abuse The patient says she is not using IV drugs anymore. She does still use marijuana. - patient counseled extensively. - Nicotine patch. Anemia Hemoglobin stable compared to prior admissions. Likely secondary to chronic disease. - Continue to monitor. DVT prophylaxis with heparin Discussed Condition With Patient, nurse Physician Certification 2 Midnight Certification Type: Admission for Inpatient Services Order for Inpatient Services The services are ordered in accordance with Medicare regulations or non- Medicare payer requirements, as applicable. In the case of services not specified as inpatient-only, they are appropriately provided as inpatient services in accordance with the 2-midnight benchmark. Estimated LOS (days): 2 days is the estimated time the patient will need to remain in the hospital, assuming treatment plan goals are met and no additional complications. Post-Hospital Plan: Not yet determined Cristobal Kauffman DO July 17, 2016 11:29
[2016-07-17] MEDS: REMOVE OLD PATCH T-DERMAL SCH (11:48)
[2016-07-17] MEDS: NICOTINE 14 MG/24 HR PATCH T-DERMAL SCH (11:48)
[2016-07-17] MEDS ORDERED: GADODIAMIDE PF 287 MG/ML 5 ML VIAL (for RAD MRI) IV ONE (12:58)
[2016-07-17 13:30] VITALS: BP 125/69; PULSE 69; RESP 19; TEMP 97.8; O2SAT 98
[2016-07-17] MEDS: HEPARIN SODIUM - SQ 10,000 UNITS/ML VIAL SQ SCH ×2 (14:05→22:19)
--- NOTE | 2016-07-17 14:35 | RADHPO ---
EXAM DATE/TIME: 07/17/2016 12:09 [facility] COMPARISON: No previous studies available for comparison. INDICATIONS : Osteomyelitis. Wound on dorsal aspect of left foot. CONTRAST: 13 cc Omniscan (gadodiamide) IV MEDICAL HISTORY : Hypertension. SURGICAL HISTORY : Appendectomy. ENCOUNTER: Subsequent ACUITY: 1 month PAIN SCORE: 0/10 LOCATION: Left Foot. TECHNIQUE: Multiplanar, multisequence MRI examination was performed without contrast and after the intravenous a dministration of gadolinium. FINDINGS: Comparison is Jul 01 2016. Previous ulceration on dorsum of foot medially is less apparent on today's examination. However, there is a new crescentic shaped fluid accumulation the subcutaneous tissues of the dorsum of the foot measuring up to 3.6 x 1 cm and extending over a length of 7.4 cm. This has in creased T1 signal and is characteristic A. complex fluid collection, possibly a complex abscess or he matoma. Rim enhancement is mild. No significant associated marrow signal abnormalities to suggest osteomyelitis. No other abnormal flu id collections. Extensive edema present predominantly in the dorsum of the foot. CONCLUSION: 1. Complex, crescentic fluid collection on dorsum of foot with measurements given above. There some m ild rim enhancement. Increased T1 and T2 signal. Differential diagnosis includes complex subcutaneous abscess or hematoma. There is associated cellulitis. No definite osteomyelitis. Shabbir Tanner MD on July 17, 2016 at 14:20 Board Certified Radiologist. This report was verified electronically.
[2016-07-17 16:00] VITALS: BP 112/66; PULSE 86; RESP 18; TEMP 98; O2SAT 98
--- NOTE | 2016-07-17 16:27 | PD.ID.CON ---
History of Present Illness Service ID Consult Requested By Dr Kauffman Reason for Consult L foot abscess Primary Care Physician Unknown Diagnoses: History of Present Illness 46 yo pt with h/o IVDU developped infection of her L foot 1 month ago after shooting drugs to that foot She was found to have an abscess with mixed bacteria. S/p ID She was treated with abx, but left AMA Now she is back co worsening swelling and pain of L foot She was evaluated by Dr Masterson MRI showed Complex, crescentic fluid collection on dorsum of foot with some mild rim enhancement. Increased T1 and T2 signal, no definite osteomyelitis Review of Systems Except as stated in HPI: all other systems reviewed are Neg Past Family Social History Allergies: Coded Allergies: Sulfa (Verified Allergy, Severe, Rash, 07/16/16) *MDRO Multi-Drug Resistant Organism (Verified Adverse Reaction, Unknown, Cleared, 07/16/16) 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 Cleared per Infection Control: MRSA PCR negative - 01/01/2015 & 09/27/2015 Compazine (Verified Adverse Reaction, Unknown, ANGINA, 07/16/16) Magnesium Sulfate (Verified Adverse Reaction, Unknown, PRUITIC RASH, ) Terbutaline (Verified Adverse Reaction, Unknown, HEART RATE ELEVATES, 07/16) Past Medical History Bipolar disease Chronic abdominal pain IV drug use Appendectomy History of ectopic History of I&D of the left hand abscess Past Surgical History I+D L foot Active Ordered Medications Medications where reviewed in EMR Antibiotics Include: minal reagan Family History reviewed and contributory Social History positive IV drug abuse , smoking half pack per denied alchol abuse Physical Exam Vital Signs Vital Signs Date Time Temp Pulse Resp B/P Pulse Ox O2 Delivery O2 Flow Rate FiO2 07/17/16 08:00 98.0 62 16 129/83 98 07/17/16 08:00 62 07/17/16 04:00 98.3 63 14 105/66 97 07/17/16 00:00 97.8 63 16 121/82 97 07/16/16 22:30 65 07/16/16 22:30 98.5 65 16 135/72 97 07/16/16 22:13 18 98 07/16/16 21:05 76 18 98 Room Air 07/16/16 21:05 76 18 135/80 98 Room Air 07/16/16 19:01 18 07/16/16 18:59 18 97 Room Air 07/16/16 18:59 77 18 97 Room Air 07/16/16 18:59 77 18 139/79 97 Room Air 07/16/16 16:19 97.8 89 19 117/83 98 Physical Exam CONSTITUTIONAL/GENERAL: This is an adequately nourished patient, in no apparent distress. TUBES/LINES/DRAINS: SKIN: No jaundice, rashes, or lesions. Skin temperature appropriate. Not diaphoretic. HEAD: Atraumatic. Normocephalic. EYES: Pupils equal and round and reactive. Extraocular motions intact. No scleral icterus. No injection or drainage. Fundi not examined. ENT: Hearing grossly normal. Nose without bleeding or purulent drainage. Oral mucosae without visible erythema, exudates, masses, or lesions. very poor dentition NECK: Trachea midline. Supple, nontender. CARDIOVASCULAR: Regular rate and rhythm without murmurs, gallops, or rubs. No JVD. Peripheral pulses symmetric. RESPIRATORY/CHEST: Symmetric, unlabored respirations. Clear to auscultation. Breath sounds equal bilaterally. No wheezes, rales, or rhonchi. GASTROINTESTINAL: Abdomen soft, non-tender, nondistended. No hepato-splenomegaly , or palpable masses. No guarding. Bowel sounds present. GENITOURINARY: Without palpable bladder distension. MUSCULOSKELETAL: Extremities without clubbing, cyanosis, or edema. L foot with nearlyu healed incision There is a n area of mild ertyehama laterally to incision + Large about 5 cm fluctuant very tender mass, cw fluid collection. No opening in incision, no ascending cellulitis, lymphangitis no drainage No mottling or clubbing. LYMPHATICS: No palpable cervical or supraclavicular adenopathy. No inguinal adenoppathy NEUROLOGICAL: Somewhat lethargic from recent medications . Motor and sensory grossly within normal limits. Follows commands. Normal speech . Moves all extremities. PSYCHIATRIC: No obvious anxiety/depression. no apparent hallucinations or other psychotic thought process. Laboratory Laboratory Tests Test 07/16/16 07/16/16 07/16/16 07/17/16 17:45 17:48 18:10 09:05 White Blood Count 7.6 5.2 Red Blood Count 4.26 3.92 Hemoglobin 10.9 9.9 Hematocrit 33.6 31.0 Mean Corpuscular Volume 78.9 79.0 Mean Corpuscular Hemoglobin 25.6 25.2 Mean Corpuscular Hemoglobin 32.4 31.9 Concent Red Cell Distribution Width 15.2 15.2 Platelet Count 320 278 Mean Platelet Volume 9.3 8.6 Neutrophils (%) (Auto) 51.1 47.7 Lymphocytes (%) (Auto) 36.3 38.5 Monocytes (%) (Auto) 8.5 8.1 Eosinophils (%) (Auto) 1.6 4.2 Basophils (%) (Auto) 2.5 1.5 Neutrophils # (Auto) 3.9 2.5 Lymphocytes # (Auto) 2.8 2.0 Monocytes # (Auto) 0.6 0.4 Eosinophils # (Auto) 0.1 0.2 Basophils # (Auto) 0.2 0.1 CBC Comment DIFF FINAL DIFF FINAL Differential Comment Prothrombin Time 10.7 Prothromb Time International 1.0 Ratio Activated Partial 30.0 Thromboplast Time Sodium Level 141 140 Potassium Level 3.9 3.9 Chloride Level 105 105 Carbon Dioxide Level 29.4 28.0 Anion Gap 7 7 Blood Urea Nitrogen 9 13 Creatinine 0.84 1.00 Estimat Glomerular Filtration 74 60 Rate Random Glucose 92 89 Lactic Acid Level 0.7 Calcium Level 9.2 8.4 Total Bilirubin 0.3 Aspartate Amino Transf 21 (AST/SGOT) Alanine Aminotransferase 19 (ALT/SGPT) Alkaline Phosphatase 115 C-Reactive Protein 0.89 Total Protein 8.2 Albumin 3.8 Erythrocyte Sedimentation Rate 34 Urine Color STRAW Urine Turbidity CLEAR Urine pH 6.5 Urine Specific [place] 1.006 Urine Protein NEG Urine Glucose (UA) NEG Urine Ketones NEG Urine Occult Blood NEG Urine Nitrite NEG Urine Bilirubin NEG Urine Leukocyte Esterase TRACE Urine RBC 0-2 Urine WBC 3-5 Urine Squamous Epithelial 6-8 Cells Urine Bacteria FEW Microscopic Urinalysis Comment CULT NOT INDICATED Urine Opiates Screen NEG Urine Barbiturates Screen NEG Urine Amphetamines Screen NEG Urine Benzodiazepines Screen NEG Urine Cocaine Screen NEG Urine Cannabinoids Screen POS Date/Time Procedure Status Source Growth 07/16/16 17:50 Aerobic Blood Culture - Preliminary Resulted Blood Peripheral NO GROWTH IN 1 DAY 07/16/16 17:50 Anaerobic Blood Culture - Preliminary Resulted Blood Peripheral NO GROWTH IN 1 DAY Result Diagram: 5/25/17 0907/17/16 09 Imaging Last Impressions Foot MRI 07/17/16 0000 Signed Impressions: Service Date/Time: June 12:09 - CONCLUSION: 1. Complex, crescentic fluid collection on dorsum of foot with measurements given above. There some mild rim enhancement. Increased T1 and T2 signal. Differential diagnosis includes complex subcutaneous abscess or hematoma. There is associated cellulitis. No definite osteomyelitis. Shabbir Tanner MD Foot X-Ray 07/16/161738 Signed Impressions: Service Date/Time: Saturday, July 16, 2016 17:55 - CONCLUSION: Stable examination. Soft tissue swelling persists. Samm Garcia MD Chest X-Ray 07/16/161738 Signed Impressions: Service Date/Time: Saturday, July 16, 2016 17:58 - CONCLUSION: No acute disease. Samm Garcia MD Assessment and Plan Assessment and Plan L foot recurrent abscess vs hematoma previosuly polimicroial abscess aw IVDU : Serratia, Kleb, Psaeu, vir strep - all santiago S IVDU - agree with plan for drainage - -if cw abscess/infected hematoma will RX per clx reports - cont zosyn, vancomycin for now - anticipater transition to po abx since there is no e/o joint/bones involvement Discussed Condition With Michelle Negron MD July 17, 2016 16:27
[2016-07-17] MEDS ORDERED: KETOROLAC TROMETHAMINE 30 MG/ML (IVP) VIAL IV PUSH PRN (16:45)
[2016-07-17] MEDS ORDERED: LIDOCAINE HCL 1% 30 ML VIAL OTHER ONE (17:15)
[2016-07-17] MEDS: KETOROLAC TROMETHAMINE 30 MG/ML (IVP) VIAL IV PUSH SCH ×2 (18:10→23:39)
[2016-07-17 20:00] VITALS: BP 110/68; PULSE 78; RESP 18; TEMP 98.3; O2SAT 95
[2016-07-18] VITALS (7 sets, daily range): BP systolic 93–155; BP diastolic 8–92; PULSE 64–77; RESP 12–16; TEMP 97.6–98.2; O2SAT 94–99
[2016-07-18] MEDS: PIPERACIL-TAZO 4.5 GM PREMIX 100 ML IV SCH ×4 (01:58→21:57)
[2016-07-18] MEDS ORDERED: PHARMACY ORDERED LAB ONE (05:45)
[2016-07-18] MEDS: KETOROLAC TROMETHAMINE 30 MG/ML (IVP) VIAL IV PUSH SCH ×4 (05:55→21:50)
[2016-07-18] MEDS: HEPARIN SODIUM - SQ 10,000 UNITS/ML VIAL SQ SCH ×3 (06:00→21:49)
--- NOTE | 2016-07-18 07:33 | PD.POD ---
Subjective Podiatric Problems Pt lethargic bedside Pain score: 9 Past Med/Surg/Social History Past Medical History Cardiovascular: REPORTS HX OF: Myocardial infarction Gastrointestinal: REPORTS HX OF: Irritable bowel syndrome Neurologic: REPORTS HX OF: Stroke Psychiatric: REPORTS HX OF: Bipolar disorder Social History Smoking Status: Current Every Day Smoker Objective Vital Signs Vital Signs Date Time Temp Pulse Resp B/P Pulse Ox O2 Delivery O2 Flow Rate FiO2 07/18/16 04:00 97.6 64 12 93/58 94 07/18/16 00:39 13 07/18/16 00:00 98.2 66 13 94/64 96 07/17/16 21:05 20 07/17/16 20:00 78 07/17/16 20:00 98.3 78 18 110/68 95 07/17/16 16:00 98.0 86 18 112/66 98 07/17/16 13:30 97.8 69 19 125/69 98 07/17/16 08:00 98.0 62 16 129/83 98 07/17/16 08:00 62 Coded Allergies: Sulfa (Verified Allergy, Severe, Rash, 07/16/16) *MDRO Multi-Drug Resistant Organism (Verified Adverse Reaction, Unknown, Cleared, 07/16/16) 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 Cleared per Infection Control: MRSA PCR negative - 01/01/2015 & 09/27/2015 Compazine (Verified Adverse Reaction, Unknown, ANGINA, 07/16/16) Magnesium Sulfate (Verified Adverse Reaction, Unknown, PRUITIC RASH, ) Terbutaline (Verified Adverse Reaction, Unknown, HEART RATE ELEVATES, 07/16) Other Results MRI showed dorsal left foot fluid collection, probable hematoma Physical Exam Remarks Left foot dorsal fluctaunce, redness improved, suture intact Can move foot up and down and wiggle toes Assessment & Plan A/P Left foot hematoma/abscess Plan is remove one suture, aspirate hematoma and send for culture Procedures After alcohol prep 3cc of lidocaine plain was injected over hematoma, once numb an 18 guage needle was used to aspirate about 4 cc of hemosiderin fluid, the opening was slightly enlarged and a compressive dressing placed Culture taken from fluid for assessment and the one suture was removed Ryan Bravo DPM July 18, 2016 07:33
[2016-07-18] MEDS: VANCOMYCIN 1,000 MG/NS 250 ML IV SCH ×4 (07:37→17:44)
[2016-07-18] MEDS: QUEtiapine FUMARATE 200 MG TAB PO SCH ×2 (08:34→21:57)
[2016-07-18] MEDS: GABAPENTIN 400 MG CAP PO SCH ×2 (08:34→21:51)
[2016-07-18] MEDS: LACTOBACILLUS ACIDOPHILUS TAB PO SCH ×3 (08:34→17:44)
[2016-07-18] MEDS: clonazePAM 1 MG TAB PO SCH ×2 (08:34→21:51)
[2016-07-18] MEDS: NICOTINE 14 MG/24 HR PATCH T-DERMAL SCH (08:35)
[2016-07-18] MEDS: SODIUM CHLORIDE 0.9% FLUSH 10 ML FLUSH IV FLUSH SCH ×2 (08:45→21:52)
[2016-07-18] MEDS ORDERED: POVIDONE IODINE 10% SOLN 118 ML BOTTLE TOPICAL SCH (09:00)
[2016-07-18] MEDS ORDERED: LIDOCAINE HCL 1% 30 ML VIAL OTHER SCH (09:00)
--- NOTE | 2016-07-18 12:46 | HHI.PR ---
Subjective Remarks The patient endorses significant foot pain after aspiration this morning. She also says she bumped it when ambulating. She is requesting extra pain medications. She also mentioned she has some nausea and wanted something for that. She believes her nausea may be secondary to pain. Nursing at the bedside. Objective Vitals Vital Signs Date Time Temp Pulse Resp B/P Pulse Ox O2 Delivery O2 Flow Rate FiO2 07/18/16 04:00 97.6 64 12 93/58 94 07/18/16 00:39 13 07/18/16 00:00 98.2 66 13 94/64 96 07/17/16 21:05 20 07/17/16 20:00 78 07/17/16 20:00 98.3 78 18 110/68 95 07/17/16 16:00 98.0 86 18 112/66 98 07/17/16 13:30 97.8 69 19 125/69 98 Result Diagram: 07/17/16 0905 07/17/16 0905 Imaging Last Impressions Foot MRI 07/17/16 0000 Signed Impressions: Service Date/Time: June 12:09 - CONCLUSION: 1. Complex, crescentic fluid collection on dorsum of foot with measurements given above. There some mild rim enhancement. Increased T1 and T2 signal. Differential diagnosis includes complex subcutaneous abscess or hematoma. There is associated cellulitis. No definite osteomyelitis. Shabbir Tanner MD Foot X-Ray 07/16/161738 Signed Impressions: Service Date/Time: Saturday, July 16, 2016 17:55 - CONCLUSION: Stable examination. Soft tissue swelling persists. Samm Garcia MD Chest X-Ray 07/16/161738 Signed Impressions: Service Date/Time: Saturday, July 16, 2016 17:58 - CONCLUSION: No acute disease. Samm Garcia MD Objective Remarks GENERAL: Well-nourished, well-developed patient. SKIN: Focused skin assessment warm/dry. HEAD: Normocephalic, atraumatic. EYES: No scleral icterus. No injection or drainage. NECK: Supple, trachea midline. No JVD or lymphadenopathy. CARDIOVASCULAR: Regular rate and rhythm without murmurs, gallops, or rubs. RESPIRATORY: Breath sounds equal bilaterally. No accessory muscle use. GASTROINTESTINAL: Abdomen soft, non-tender, nondistended. MUSCULOSKELETAL: No cyanosis, trace edema in the left lower extremity. Patient has redness and swelling at the dorsal aspect of the left foot. Tender to palpation. Full range of motion of the toes. BACK: Nontender without obvious deformity. No CVA tenderness. PSYCH: Flattened affect. Procedures Aspiration of left foot 07/18. Medications and IVs Current Medications Medications (Trade) Dose Ordered Sig/Tristan Route Start Time Stop Time Status Last Admin (NS Flush) 2 ml UNSCH PRN IV FLUSH 07/16/16 20:00 (NS Flush) 2 ml BID IV FLUSH 07/16/16 21:00 07/17/16 20:05 Naloxone HCl 0.4 mg 0.4 mg UNSCH PRN IV 07/16/16 20:00 Pharmacy Profile Note 0 ml @ 0 mls/hr UNSCH OTHER 07/16/16 20:15 (Zosyn 4.5 Gm Premix) 100 ml @ 200 mls/hr Q6H IV 07/17/16 02:00 07/18/16 08:33 Lactobacillus Acidophilus 1 tab 1 tab TID PO 07/17/16 09:00 07/18/16 12:06 (Vancomycin Inj/ NS 250 ml Inj) 250 ml @ 250 mls/hr Q12H IV 07/17/16 06:00 07/18/16 07:37 (KlonoPIN) 2 mg BID PO 07/17/16 10:00 07/18/16 08:34 (Neurontin) 1,200 mg BID PO 07/17/16 10:15 07/18/16 08:34 (Vistaril) 100 mg BID PO 07/17/16 10:00 07/18/16 08:38 (SEROquel) 200 mg BID PO 07/17/16 10:00 07/18/16 08:34 (Roxicodone) 5 mg Q6H PRN PO 07/17/16 11:00 07/18/16 12:38 (Habitrol 14 Mg Patch.24 Hr) 1 patch DAILY T-DERMAL 07/17/16 11:15 07/18/16 08:35 Miscellaneous Information 1 DAILY T-DERMAL 07/18/16 09:00 (Toradol Inj) 30 mg Q6H IV PUSH 07/17/16 18:00 07/18/16 18:01 07/18/16 12:06 (Heparin Inj) 5,000 units Q8HR SQ 07/17/16 14:00 07/18/16 06:00 (Percocet 7.5-325 Mg) 1 tab Q4H PRN PO 07/18/16 12:45 UNV A/P Assessment and Plan Left foot abscess/cellulitis The pt has left AMA on two previous occasions during treatment for the same problem. S/t IVDU. Podiatry consult appreciated. Previous hospitalization wound culture of the foot grew Klebsiella pneumonia, Serratia marcescens and Pseudomonas aeruginosa. She also had bacteremia due to Stenotrophomonas. MRI showed: Complex, crescentic fluid collection on dorsum of foot; There some mild rim enhancement; Increased T1 and T2 signal; There is associated cellulitis; No definite osteomyelitis. S/p aspiration of foot 07/18. - continue Zosyn and vancomycin. - pain management with IV Toradol, Percocet. - follow cultures. - follow up with infectious disease. Bipolar disease Mood stable at this time. - Continue home meds. Tobacco and IV drug abuse The patient says she is not using IV drugs anymore. She does still use marijuana. - patient counseled extensively. - Nicotine patch. Anemia Hemoglobin stable compared to prior admissions. Likely secondary to chronic disease. - Continue to monitor. Nausea Possibly s/t pain or antibiotics. - Zofran as needed. DVT prophylaxis with heparin Discharge Planning Awaiting clinical improvement. Cristobal Kauffman DO July 18, 2016 12:46
[2016-07-18] MEDS: oxyCODONE/ACETAMINOPHEN 7.5 MG/325 MG TAB PO PRN ×3 (14:00→21:51)
[2016-07-18] MEDS: ONDANSETRON HCL 4 MG/2 ML VIAL IV PUSH PRN (14:10)
[2016-07-18] MEDS ORDERED: PETROLEUM/SHARK LIVER OIL 60 GM TUBE RECTAL PRN (22:30)
[2016-07-19 00:18] VITALS: BP 117/80; PULSE 72; RESP 14; TEMP 97.9; O2SAT 93
[2016-07-19] MEDS: KETOROLAC TROMETHAMINE 30 MG/ML (IVP) VIAL IV PUSH SCH ×3 (01:58→12:26)
[2016-07-19] MEDS: oxyCODONE/ACETAMINOPHEN 7.5 MG/325 MG TAB PO PRN ×6 (01:58→21:40)
[2016-07-19] MEDS: PIPERACIL-TAZO 4.5 GM PREMIX 100 ML IV SCH ×4 (04:19→21:39)
[2016-07-19] MEDS: HEPARIN SODIUM - SQ 10,000 UNITS/ML VIAL SQ SCH ×3 (06:40→21:41)
[2016-07-19] MEDS: VANCOMYCIN 1,000 MG/NS 250 ML IV SCH ×4 (06:42→18:44)
[2016-07-19 08:00] VITALS: BP 150/82; PULSE 72; RESP 18; TEMP 97.2; O2SAT 97
[2016-07-19] MEDS: GABAPENTIN 400 MG CAP PO SCH (08:15)
[2016-07-19] MEDS: clonazePAM 1 MG TAB PO SCH ×2 (08:15→21:41)
[2016-07-19] MEDS: LACTOBACILLUS ACIDOPHILUS TAB PO SCH ×3 (08:15→18:46)
[2016-07-19] MEDS: NICOTINE 14 MG/24 HR PATCH T-DERMAL SCH (08:15)
[2016-07-19] MEDS: SODIUM CHLORIDE 0.9% FLUSH 10 ML FLUSH IV FLUSH SCH ×2 (08:16→21:39)
[2016-07-19] MEDS: QUEtiapine FUMARATE 200 MG TAB PO SCH ×2 (09:00→21:39)
[2016-07-19] MEDS: REMOVE OLD PATCH T-DERMAL SCH (09:00)
[2016-07-19] MEDS: ONDANSETRON HCL 4 MG/2 ML VIAL IV PUSH PRN ×2 (10:14→23:59)
--- NOTE | 2016-07-19 11:52 | HHI.PR ---
Subjective Remarks The patient said that her wound opened up a little bit. She said the swelling at the top of her left foot was bothering her and her foot was very painful. She also complained of diarrhea. She also mentioned that she was having some pain with urination and believes that she has nodules sticking out of her vagina. She says that she has been diagnosed with some sort of a gynecological cancer years ago. Objective Vitals Vital Signs Date Time Temp Pulse Resp B/P Pulse Ox O2 Delivery O2 Flow Rate FiO2 07/19/16 08:00 97.2 72 18 150/82 97 07/19/16 00:18 97.9 72 14 117/80 93 07/18/16 20:56 97.6 77 16 135/92 95 07/18/16 16:24 98.0 69 14 142/77 99 07/18/16 12:00 97.8 70 14 150/79 97 I/O 07/18/16 07/18/16 07/18/16 07/19/16 07/19/16 07/19/16 07:00 15:00 23:00 07:00 15:00 23:00 Intake Total 1065 ml Balance 1065 ml Intake Oral 700 ml IV Total 365 ml # Voids 3 1 # Bowel Movements 4 Result Diagram: 07/17/1690407/17/16904 Imaging Last Impressions Foot MRI 07/17/16 0000 Signed Impressions: Service Date/Time: June 12:09 - CONCLUSION: 1. Complex, crescentic fluid collection on dorsum of foot with measurements given above. There some mild rim enhancement. Increased T1 and T2 signal. Differential diagnosis includes complex subcutaneous abscess or hematoma. There is associated cellulitis. No definite osteomyelitis. Shabbir Tanner MD Foot X-Ray 07/16/161738 Signed Impressions: Service Date/Time: Saturday, July 16, 2016 17:55 - CONCLUSION: Stable examination. Soft tissue swelling persists. Samm Garcia MD Chest X-Ray 07/16/161738 Signed Impressions: Service Date/Time: Saturday, July 16, 2016 17:58 - CONCLUSION: No acute disease. Samm Garcia MD Objective Remarks GENERAL: Well-nourished, well-developed patient. SKIN: Focused skin assessment warm/dry. HEAD: Normocephalic, atraumatic. EYES: No scleral icterus. No injection or drainage. NECK: Supple, trachea midline. No JVD or lymphadenopathy. CARDIOVASCULAR: Regular rate and rhythm without murmurs, gallops, or rubs. RESPIRATORY: Breath sounds equal bilaterally. No accessory muscle use. GASTROINTESTINAL: Abdomen soft, non-tender, nondistended. : Chaperoned exam revealed normal external genitalia without obvious growths. MUSCULOSKELETAL: No cyanosis, trace edema in the left lower extremity. Patient has redness and swelling at the dorsal aspect of the left foot. Tender to palpation. Full range of motion of the toes. BACK: Nontender without obvious deformity. No CVA tenderness. PSYCH: Flattened affect. Procedures Aspiration of left foot 07/18. Medications and IVs Current Medications Medications (Trade) Dose Ordered Sig/Tristan Route Start Time Stop Time Status Last Admin (NS Flush) 2 ml UNSCH PRN IV FLUSH 07/16/16 20:00 07/18/16 14:10 (NS Flush) 2 ml BID IV FLUSH 07/16/16 21:00 07/19/16 08:16 Naloxone HCl 0.4 mg 0.4 mg UNSCH PRN IV 07/16/16 20:00 Pharmacy Profile Note 0 ml @ 0 mls/hr UNSCH OTHER 07/16/16 20:15 (Zosyn 4.5 Gm Premix) 100 ml @ 200 mls/hr Q6H IV 07/17/16 02:00 07/19/16 08:20 Lactobacillus Acidophilus 1 tab 1 tab TID PO 07/17/16 09:00 07/19/16 08:15 (Vancomycin Inj/ NS 250 ml Inj) 250 ml @ 250 mls/hr Q12H IV 07/17/16 06:00 07/19/16 06:42 (KlonoPIN) 2 mg BID PO 07/17/16 10:00 07/19/16 08:15 (Neurontin) 1,200 mg BID PO 07/17/16 10:15 07/19/16 08:15 (Vistaril) 100 mg BID PO 07/17/16 10:00 07/19/16 08:16 (SEROquel) 200 mg BID PO 07/17/16 10:00 07/18/16 21:57 (Habitrol 14 Mg Patch.24 Hr) 1 patch DAILY T-DERMAL 07/17/16 11:15 07/19/16 08:15 Miscellaneous Information 1 DAILY T-DERMAL 07/18/16 09:00 07/19/16 09:00 (Heparin Inj) 5,000 units Q8HR SQ 07/17/16 14:00 07/19/16 06:40 (Percocet 7.5-325 Mg) 1 tab Q4H PRN PO 07/18/16 12:45 07/19/16 08:17 (Zofran Inj) 4 mg Q6HR PRN IV PUSH 07/18/16 12:45 07/19/16 10:14 (Toradol Inj) 15 mg Q6H IV PUSH 07/18/16 19:00 07/19/16 19:01 07/19/16 06:41 (Preparation H Oint) 1 applic Q6H PRN RECTAL 07/18/16 22:30 A/P Assessment and Plan Left foot abscess/cellulitis The pt has left AMA on two previous occasions during treatment for the same problem. S/t IVDU. Podiatry consult appreciated. Previous hospitalization wound culture of the foot grew Klebsiella pneumonia, Serratia marcescens and Pseudomonas aeruginosa. She also had bacteremia due to Stenotrophomonas. MRI showed: Complex, crescentic fluid collection on dorsum of foot; There some mild rim enhancement; Increased T1 and T2 signal; There is associated cellulitis; No definite osteomyelitis. S/p aspiration of foot 07/18. - continue Zosyn and vancomycin. - pain management with IV Toradol, Percocet. - follow cultures. No growth in 24 hours. - follow up with infectious disease. Bipolar disease Mood stable at this time. - Continue home meds. Tobacco and IV drug abuse The patient says she is not using IV drugs anymore. She does still use marijuana. - patient counseled extensively. - Nicotine patch. Anemia Hemoglobin stable compared to prior admissions. Likely secondary to chronic disease. - Continue to monitor. Nausea Possibly s/t pain or antibiotics. - Zofran as needed. Diarrhea Concern for C diff in setting of antibiotics. - check stool for C diff. Dysuria/ Vaginal discomfort Chaperoned exam without gross abnormality. UA unremarkable. The pt endorses a history of gynecological cancer. - outpt follow-up. DVT prophylaxis with heparin Discharge Planning Awaiting clinical improvement. Cristobal Kauffman DO July 19, 2016 11:52
[2016-07-19 12:00] VITALS: BP 145/96; PULSE 82; RESP 18; TEMP 97.4; O2SAT 96
[2016-07-19 13:13] LABS: CHLORIDE 107 MEQ/L (98-107); POTASSIUM 4.6 MEQ/L (3.5-5.1); SODIUM (NA) 139 MEQ/L (136-145)
[2016-07-19 13:16] LABS: ANION GAP 7 MEQ/L (5-15); BICARBONATE 25.5 MEQ/L (21.0-32.0)
[2016-07-19 13:17] LABS: BLOOD UREA NITROGEN 14 MG/DL (7-18)
[2016-07-19 13:19] LABS: ALT (GPT) 18 U/L (10-53); AST (GOT) 22 U/L (15-37)
[2016-07-19 13:20] LABS: GLOMERULAR FILTRATION RATE 44 ML/MIN (>89)
[2016-07-19 13:21] LABS: TOTAL BILIRUBIN ADULT 0.3 MG/DL (0.2-1.0)
[2016-07-19 13:22] LABS: ALKALINE PHOSPHATASE 97 U/L (45-117)
[2016-07-19 16:00] VITALS: BP 148/94; PULSE 81; RESP 18; TEMP 97.4; O2SAT 94
--- NOTE | 2016-07-19 17:15 | RADHPO ---
EXAM DATE/TIME: 07/19/2016 15:46 [facility] COMPARISON: No previous studies available for comparison. INDICATIONS : Abdomen pain today MEDICAL HISTORY : Myocardial infarction. Stroke. SURGICAL HISTORY : ENCOUNTER: Subsequent ACUITY: 1 day PAIN SCORE: 9/10 LOCATION: Bilateral abdomen FINDINGS: Supine view of the abdomen was performed. The abdominal bowel gas pattern is normal. No abnormal ma sses, calcifications, or organomegaly is seen. The osseous structures are unremarkable. CONCLUSION: No acute disease. Shon Alvarado MD FACR on July 19, 2016 at 17:13 Board Certified Radiologist. This report was verified electronically.
[2016-07-19 18:01] LABS: C. DIFF EPI 027 PRESUMPTIVE NEGATIVE (NEGATIVE); C. DIFF TOXIN PCR NEGATIVE (NEGATIVE)
[2016-07-19] MEDS: DEXT 5%-NACL 0.9% 1000 ML INJ 1,000 ML IV SCH (18:49)
[2016-07-19 20:04] VITALS: BP 143/98; PULSE 70; RESP 14; TEMP 96.9; O2SAT 94
[2016-07-19] MEDS: GABAPENTIN 300 MG CAP PO SCH (21:40)
[2016-07-19] MEDS: PANTOPRAZOLE SOD 40 MG DELAYED RELEASE TAB PO SCH (23:58)
[2016-07-20] MEDS ORDERED: oxyCODONE/ACETAMINOPHEN 10 MG/325 MG TAB PO ONE
[2016-07-20 00:04] VITALS: BP 140/90; PULSE 61; RESP 12; TEMP 97.7; O2SAT 95
[2016-07-20] MEDS: oxyCODONE/ACETAMINOPHEN 7.5 MG/325 MG TAB PO PRN ×6 (01:19→23:28)
[2016-07-20] MEDS: DEXT 5%-NACL 0.9% 1000 ML INJ 1,000 ML IV SCH ×4 (01:45→18:00)
[2016-07-20] MEDS: PIPERACIL-TAZO 4.5 GM PREMIX 100 ML IV SCH ×3 (02:00→13:28)
[2016-07-20] MEDS: HEPARIN SODIUM - SQ 10,000 UNITS/ML VIAL SQ SCH ×3 (05:35→21:32)
[2016-07-20] MEDS: VANCOMYCIN 1,000 MG/NS 250 ML IV SCH ×2 (05:35)
[2016-07-20 07:31] LABS: HEMATOCRIT 29.1 % (35.0-46.0); MEAN CORPUSCULAR HEMOGLOBIN 25.6 PG (27.0-34.0); MEAN CORPUSCULAR HGB CONC 32.1 % (32.0-36.0); PLATELET COUNT 252 TH/MM3 (150-450); RED BLOOD COUNT 3.64 MIL/MM3 (4.00-5.30); RED CELL DISTRIBUTION WIDTH 14.9 % (11.6-17.2); REVIEW FLAG FINAL
[2016-07-20 07:39] LABS: POTASSIUM 4.2 MEQ/L (3.5-5.1)
[2016-07-20 07:50] LABS: BICARBONATE 28.3 MEQ/L (21.0-32.0); MAGNESIUM 1.9 MG/DL (1.5-2.5)
[2016-07-20] MEDS: REMOVE OLD PATCH T-DERMAL SCH (09:00)
[2016-07-20] MEDS: LACTOBACILLUS ACIDOPHILUS TAB PO SCH ×3 (09:21→18:01)
[2016-07-20] MEDS: PANTOPRAZOLE SOD 40 MG DELAYED RELEASE TAB PO SCH (09:21)
[2016-07-20] MEDS: SODIUM CHLORIDE 0.9% FLUSH 10 ML FLUSH IV FLUSH SCH ×2 (09:22→21:31)
[2016-07-20] MEDS: GABAPENTIN 300 MG CAP PO SCH ×2 (09:22→21:31)
[2016-07-20] MEDS: clonazePAM 1 MG TAB PO SCH ×2 (09:22→21:32)
[2016-07-20] MEDS: NICOTINE 14 MG/24 HR PATCH T-DERMAL SCH (09:26)
[2016-07-20] MEDS: QUEtiapine FUMARATE 200 MG TAB PO SCH ×2 (10:16→21:31)
[2016-07-20] MEDS ORDERED: MORPHINE SULFATE 4 MG/ML INJ IV PUSH ONE (11:45)
--- NOTE | 2016-07-20 11:54 | HHI.PR ---
Subjective Remarks The patient complained of severe abdominal pain in the upper area and was concerned about an ulcer. She still has diarrhea. She also has a lot of pain in that left foot. She said she is very depressed and has been thinking about dying. Objective Vitals Vital Signs Date Time Temp Pulse Resp B/P Pulse Ox O2 Delivery O2 Flow Rate FiO2 07/20/16 00:04 97.7 61 12 140/90 95 07/19/16 20:04 96.9 70 14 143/98 94 07/19/16 16:00 97.4 81 18 148/94 94 07/19/16 12:00 97.4 82 18 145/96 96 I/O 07/19/16 07/19/16 07/19/16 07/20/16 07/20/16 07/20/16 07:00 15:00 23:00 07:00 15:00 23:00 Intake Total 850 ml Balance 850 ml Intake Oral 850 ml # Voids 1 5 # Bowel Movements 2 3 3 Result Diagram: 07/20/16 0619 07/20/16 0619 Imaging Last Impressions Abdomen X-Ray 07/19/16 0000 Signed Impressions: Service Date/Time: Tuesday, July 19, 2016 15:46 - CONCLUSION: No acute disease. Shon Alvarado MD FACR Foot MRI 07/17/16 0000 Signed Impressions: Service Date/Time: June 12:09 - CONCLUSION: 1. Complex, crescentic fluid collection on dorsum of foot with measurements given above. There some mild rim enhancement. Increased T1 and T2 signal. Differential diagnosis includes complex subcutaneous abscess or hematoma. There is associated cellulitis. No definite osteomyelitis. Shabbir Tanner MD Foot X-Ray 07/16/16 1739 Signed Impressions: Service Date/Time: Saturday, July 16, 2016 17:55 - CONCLUSION: Stable examination. Soft tissue swelling persists. Samm Garcia MD Chest X-Ray 07/16/161738 Signed Impressions: Service Date/Time: Saturday, July 16, 2016 17:58 - CONCLUSION: No acute disease. Samm Garcia MD Objective Remarks GENERAL: Well-nourished, well-developed patient. SKIN: Focused skin assessment warm/dry. HEAD: Normocephalic, atraumatic. EYES: No scleral icterus. No injection or drainage. NECK: Supple, trachea midline. No JVD or lymphadenopathy. CARDIOVASCULAR: Regular rate and rhythm without murmurs, gallops, or rubs. RESPIRATORY: Breath sounds equal bilaterally. No accessory muscle use. GASTROINTESTINAL: Abdomen soft, tender in the epigastric area, nondistended. : Chaperoned exam revealed normal external genitalia without obvious growths. MUSCULOSKELETAL: No cyanosis, trace edema in the left lower extremity. Patient has redness and swelling at the dorsal aspect of the left foot. There is an open wound. Tender to palpation. Full range of motion of the toes. BACK: Nontender without obvious deformity. No CVA tenderness. PSYCH: Teary-eyed. Procedures Aspiration of left foot 07/18. Medications and IVs Current Medications Medications (Trade) Dose Ordered Sig/Tristan Route Start Time Stop Time Status Last Admin (NS Flush) 2 ml UNSCH PRN IV FLUSH 07/16/16 20:00 07/18/16 14:10 (NS Flush) 2 ml BID IV FLUSH 07/16/16 21:00 07/20/16 09:22 Naloxone HCl 0.4 mg 0.4 mg UNSCH PRN IV 07/16/16 20:00 Pharmacy Profile Note 0 ml @ 0 mls/hr UNSCH OTHER 07/16/16 20:15 (Zosyn 4.5 Gm Premix) 100 ml @ 200 mls/hr Q6H IV 07/17/16 02:00 07/20/16 09:19 Lactobacillus Acidophilus 1 tab 1 tab TID PO 07/17/16 09:00 07/20/16 09:21 (Vancomycin Inj/ NS 250 ml Inj) 250 ml @ 250 mls/hr Q12H IV 07/17/16 06:00 07/20/16 05:35 (KlonoPIN) 2 mg BID PO 07/17/16 10:00 07/20/16 09:22 (Vistaril) 100 mg BID PO 07/17/16 10:00 07/20/16 09:21 (SEROquel) 200 mg BID PO 07/17/16 10:00 07/20/16 10:16 (Habitrol 14 Mg Patch.24 Hr) 1 patch DAILY T-DERMAL 07/17/16 11:15 07/20/16 09:26 Miscellaneous Information 1 DAILY T-DERMAL 07/18/16 09:00 07/20/16 09:00 (Heparin Inj) 5,000 units Q8HR SQ 07/17/16 14:00 07/20/16 05:35 (Percocet 7.5-325 Mg) 1 tab Q4H PRN PO 07/18/16 12:45 07/20/16 09:27 (Zofran Inj) 4 mg Q6HR PRN IV PUSH 07/18/16 12:45 07/19/16 23:59 (Preparation H Oint) 1 applic Q6H PRN RECTAL 07/18/16 22:30 Gabapentin 300 mg 300 mg Q12HR PO 07/19/16 21:00 07/20/16 09:22 (D5W-NS 1000 ml Inj) 1,000 ml @ 125 mls/hr Q8H IV 07/19/16 17:45 07/19/16 18:49 (Protonix) 40 mg DAILY PO 07/19/16 23:45 07/20/16 09:21 Miscellaneous Information SPECIFIC LAB TO BE DRAWN:VANCOMY... ONCE ONCE .XX 07/22/16 05:45 07/22/16 05:46 A/P Assessment and Plan Left foot abscess/cellulitis The pt has left AMA on two previous occasions during treatment for the same problem. S/t IVDU. Podiatry consult appreciated. Previous hospitalization wound culture of the foot grew Klebsiella pneumonia, Serratia marcescens and Pseudomonas aeruginosa. She also had bacteremia due to Stenotrophomonas. MRI showed: Complex, crescentic fluid collection on dorsum of foot; There some mild rim enhancement; Increased T1 and T2 signal; There is associated cellulitis; No definite osteomyelitis. S/p aspiration of foot 07/18. Wound has dehisced. - continue Zosyn and vancomycin. - pain management. - follow cultures. No growth. - follow up with infectious disease and podiatry. Bipolar disease The patient has been very depressed and thinking about dying often. - Continue home meds. - Psychiatry consult requested. Tobacco and IV drug abuse The patient says she is not using IV drugs anymore. She does still use marijuana. - patient counseled extensively. - Nicotine patch. Anemia Hemoglobin stable compared to prior admissions. Likely secondary to chronic disease. - Continue to monitor. Abdominal pain The pt says she has a history of PUD. Lipase and LFTs unremarkable. KUB unremarkable. - CT abdomen pending. Dysuria/ Vaginal discomfort Chaperoned exam without gross abnormality. UA unremarkable. The pt endorses a history of gynecological pre-cancer. - outpt follow-up. DVT prophylaxis with heparin Discharge Planning Awaiting clinical improvement. Cristobal Kauffman DO July 20, 2016 11:54
[2016-07-20 12:00] VITALS: BP 142/89; PULSE 76; RESP 18; TEMP 97.2; O2SAT 95
[2016-07-20] MEDS ORDERED: DIATRIZOATE MEGLUM/DIATRIZOATE SOD 9 ML CUP PO ONE (13:30)
--- NOTE | 2016-07-20 14:02 | HHI.IDPN ---
Subjective Subjective Remarks tearfulco abd pain and diarrhea C.diff was negative gives h/o ulcerative colitis co l foot pain as well sp aspiration - per reportabout 4 cc of hemosiderin fluid was aspirated , Antibiotics zosyn vanco Allergies: Coded Allergies: Sulfa (Verified Allergy, Severe, Rash, 07/16/16) *MDRO Multi-Drug Resistant Organism (Verified Adverse Reaction, Unknown, Cleared, 07/16/16) 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 Cleared per Infection Control: MRSA PCR negative - 01/01/2015 & 09/27/2015 Compazine (Verified Adverse Reaction, Unknown, ANGINA, 07/16/16) Magnesium Sulfate (Verified Adverse Reaction, Unknown, PRUITIC RASH, ) Terbutaline (Verified Adverse Reaction, Unknown, HEART RATE ELEVATES, 07/16) Objective . Vital Signs Date Time Temp Pulse Resp B/P Pulse Ox O2 Delivery O2 Flow Rate FiO2 07/20/16 12:00 97.2 76 18 142/89 95 07/20/16 00:04 97.7 61 12 140/90 95 07/19/16 20:04 96.9 70 14 143/98 94 07/19/16 16:00 97.4 81 18 148/94 94 07/19/16 07/19/16 07/20/16 15:00 23:00 07:00 Intake Total 850 ml Balance 850 ml Intake Oral 850 ml # Voids 5 # Bowel Movements 2 3 3 . Laboratory Tests Test 07/20/16 06:19 White Blood Count 7.0 TH/MM3 Red Blood Count 3.64 MIL/MM3 Hemoglobin 9.3 GM/DL Hematocrit 29.1 % Mean Corpuscular Volume 80.0 FL Mean Corpuscular Hemoglobin 25.6 PG Mean Corpuscular Hemoglobin 32.1 % Concent Red Cell Distribution Width 14.9 % Platelet Count 252 TH/MM3 Mean Platelet Volume 9.9 FL Laboratory Tests Test 07/19/16 07/20/16 13:00 06:19 Sodium Level 139 MEQ/L 142 MEQ/L Potassium Level 4.6 MEQ/L 4.2 MEQ/L Chloride Level 107 MEQ/L 108 MEQ/L Carbon Dioxide Level 25.5 MEQ/L 28.3 MEQ/L Anion Gap 7 MEQ/L 6 MEQ/L Blood Urea Nitrogen 14 MG/DL 11 MG/DL Creatinine 1.30 MG/DL 1.10 MG/DL Estimat Glomerular Filtration 44 ML/MIN 54 ML/MIN Rate Random Glucose 95 MG/DL 85 MG/DL Calcium Level 8.8 MG/DL 8.5 MG/DL Total Bilirubin 0.3 MG/DL Aspartate Amino Transf 22 U/L (AST/SGOT) Alanine Aminotransferase 18 U/L (ALT/SGPT) Alkaline Phosphatase 97 U/L Total Protein 7.4 GM/DL Albumin 3.2 GM/DL Lipase 45 U/L Magnesium Level 1.9 MG/DL Microbiology Date/Time Procedure Status Source Growth 07/18/16 07:45 Acid Fast Stain - Final Resulted Abscess Foot NO ACID FAST BACILLI SEEN 07/18/16 07:45 Mycobacterial Culture Resulted Abscess Foot Pending 07/18/16 07:45 Gram Stain - Final Resulted Wound Foot 07/18/16 07:45 Wound Culture - Preliminary Resulted Wound Foot NO GROWTH IN 48 HOURS. Imaging Last Impressions Abdomen X-Ray 07/19/16 0000 Signed Impressions: Service Date/Time: Tuesday, July 19, 2016 15:46 - CONCLUSION: No acute disease. Shon Alvarado MD FACR Foot MRI 07/17/16 0000 Signed Impressions: Service Date/Time: June 12:09 - CONCLUSION: 1. Complex, crescentic fluid collection on dorsum of foot with measurements given above. There some mild rim enhancement. Increased T1 and T2 signal. Differential diagnosis includes complex subcutaneous abscess or hematoma. There is associated cellulitis. No definite osteomyelitis. Shabbir Tanner MD Foot X-Ray 07/16/161738 Signed Impressions: Service Date/Time: Saturday, July 16, 2016 17:55 - CONCLUSION: Stable examination. Soft tissue swelling persists. Samm Garcia MD Chest X-Ray 07/16/161738 Signed Impressions: Service Date/Time: Saturday, July 16, 2016 17:58 - CONCLUSION: No acute disease. Samm Garcia MD Physical Exam CONSTITUTIONAL/GENERAL: This is an adequately nourished patient, in no apparent distress. TUBES/LINES/DRAINS: SKIN: No jaundice, rashes, or lesions. Skin temperature appropriate. Not diaphoretic. CARDIOVASCULAR: Regular rate and rhythm without murmurs, gallops, or rubs. No JVD. Peripheral pulses symmetric. RESPIRATORY/CHEST: Symmetric, unlabored respirations. Clear to auscultation. Breath sounds equal bilaterally. No wheezes, rales, or rhonchi. GASTROINTESTINAL: Abdomen soft, moderratel diffusely tender, mildly distended. No hepato-splenomegaly, or palpable masses. No guarding. Bowel sounds present. MUSCULOSKELETAL: Extremities without clubbing, cyanosis, or edema. L foot with sepated incision with odorles serosangf drainage on dressing no erythema visualise + some mild edema NEUROLOGICAL: fully awake and alert ; non focal PSYCHIATRIC:tearful Assessment & Plan Remarks L foot with old hematoma - sp aspiration; clx negative so far previosuly polimicroial abscess aw IVDU : Serratia, Kleb, Psaeu, vir strep - all santiago S IVDU New issue: diarrhea, abd pain - C.diff negative - pt with self reported h/o UC - dc zosyn, vancomycin - start levaquin - fu AFB clx untill final - Iclx remans negative will stop abx completely Discussed Condition With Michelle Gooden MD July 20, 2016 14:02
[2016-07-20] MEDS ORDERED: LORazepam 2 MG/ML VIAL IV PUSH ONE (15:00)
[2016-07-20] MEDS ORDERED: LEVOFLOXACIN 750 MG TAB PO SCH (15:00)
[2016-07-20] MEDS: ONDANSETRON HCL 4 MG/2 ML VIAL IV PUSH PRN (15:03)
--- NOTE | 2016-07-20 17:55 | RADHPO ---
EXAM DATE/TIME: 07/20/2016 17:03 [place] COMPARISON: CT ABDOMEN & PELVIS W/O CONTRAST, January 14, 2016, 9:36. INDICATIONS : Diffuse abdominal pain. ORAL CONTRAST: Prescribed oral contrast ingested. RADIATION DOSE: 13.45 CTDIvol (mGy) MEDICAL HISTORY : Cerebrovascular disease. Hypertension. Myocardial infarction. SURGICAL HISTORY : Appendectomy. Cholecystectomy. ENCOUNTER: Initial ACUITY: 2 days PAIN SCALE: 4/10 LOCATION: abdomen/pelvis TECHNIQUE: Volumetric scanning of the abdomen and pelvis was performed. Using automated exposure control and ad justment of the mA and/or kV according to patient size, radiation dose was kept as low as reasonably achievable to obtain optimal diagnostic quality images. FINDINGS: LOWER LUNGS: Bibasilar scattered atelectasis is noted. LIVER: Homogeneous density without lesion. There is no dilation of the biliary tree. No calcified gallston es. Status post cholecystectomy. SPLEEN: Normal size without lesion. PANCREAS: Within normal limits. KIDNEYS: Multiple calcified nonobstructing bilateral renal calculi are noted. The largest is located within th e mid pole on the left and measures 5 mm. No acute obstructive uropathy is noted. ADRENAL GLANDS: Within normal limits. VASCULAR: There is no aortic aneurysm. BOWEL/MESENTERY: The stomach, small bowel, and colon demonstrate no acute abnormality. There is no free intraperitone al air or fluid. ABDOMINAL WALL: Within normal limits. RETROPERITONEUM: There is no lymphadenopathy. BLADDER: No wall thickening or mass. REPRODUCTIVE: Multiple bilateral ovarian cysts are noted with the largest on the right measuring 4.6 cm. The uterus is prominent in size and appears to contain a fibroid within the anterior fundus measuring 3.6 cm. INGUINAL: There is no lymphadenopathy or hernia. MUSCULOSKELETAL: Mild degenerative changes and scoliosis of the lumbar spine are noted. CONCLUSION: 1. Multiple calcified nonobstructing bilateral renal calculi. 2. No acute obstructive uropathy. 3. Multiple ovarian cysts bilaterally. 4. Enlarged uterus with probable anterior fundal fibroid measuring 3.6 cm. 5. Bibasilar scattered atelectasis. 6. Mild degenerative changes and scoliosis of lumbar spine. Nima Rivera MD on July 20, 2016 at 17:47 Board Certified Radiologist. This report was verified electronically.
[2016-07-20 22:02] VITALS: BP 179/96; PULSE 94; RESP 20; TEMP 96.2; O2SAT 100
[2016-07-20] MEDS ORDERED: oxyCODONE/ACETAMINOPHEN 7.5 MG/325 MG TAB PO ONE (22:15)
[2016-07-20] MEDS ORDERED: ENALAPRILAT 1.25 MG/ML VIAL IV PUSH PRN (22:15)
[2016-07-21] VITALS: BP 137/98; PULSE 71; RESP 16; TEMP 96.7; O2SAT 94
[2016-07-21] MEDS: HEPARIN SODIUM - SQ 10,000 UNITS/ML VIAL SQ SCH (03:57)
[2016-07-21] MEDS: oxyCODONE/ACETAMINOPHEN 7.5 MG/325 MG TAB PO PRN ×2 (05:05→09:18)
[2016-07-21 07:03] LABS: POTASSIUM 3.9 MEQ/L (3.5-5.1)
[2016-07-21 07:08] LABS: BICARBONATE 28.6 MEQ/L (21.0-32.0)
[2016-07-21 07:58] VITALS: BP 180/114; PULSE 66; RESP 20; TEMP 96.3; O2SAT 98
[2016-07-21] MEDS: SODIUM CHLORIDE 0.9% FLUSH 10 ML FLUSH IV FLUSH SCH (09:00)
[2016-07-21] MEDS: REMOVE OLD PATCH T-DERMAL SCH (09:00)
[2016-07-21] MEDS: GABAPENTIN 300 MG CAP PO SCH (09:16)
[2016-07-21] MEDS: NICOTINE 14 MG/24 HR PATCH T-DERMAL SCH (09:16)
[2016-07-21] MEDS: PANTOPRAZOLE SOD 40 MG DELAYED RELEASE TAB PO SCH (09:17)
[2016-07-21] MEDS: QUEtiapine FUMARATE 200 MG TAB PO SCH (09:17)
[2016-07-21] MEDS: LACTOBACILLUS ACIDOPHILUS TAB PO SCH (09:18)
[2016-07-21] MEDS: clonazePAM 1 MG TAB PO SCH (09:30)
[2016-07-21] MEDS: DEXT 5%-NACL 0.9% 1000 ML INJ 1,000 ML IV SCH (09:45)
--- NOTE | 2016-07-21 10:09 | HHI.DCPOC ---
Discharge Care Plan Diagnosis: (1) Foot abscess, left (2) Hypertension (3) Bipolar disorder with moderate depression (4) Abdominal pain (5) Anxiety Goals to Promote Your Health * To prevent worsening of your condition and complications * To maintain your health at the optimal level Directions to Meet Your Goals Take your medications as prescribed Follow your dietary instruction Follow activity as directed Keep your appointments as scheduled Take your immunizations and boosters as scheduled If your symptoms worsen call your PCP, if no PCP go to Urgent Care Center or Emergency Room Smoking is Dangerous to Your Health. Avoid second hand smoke Call the 24-hour hour crisis hotline for domestic abuse at Cristobal Kauffman DO July 21, 2016 10:09
--- NOTE | 2016-07-21 10:22 | HHI.DS ---
Discharge Summary Admission Date July 16, 2016 at 19:15 Discharge Date: July 21, 2016 Admitting Diagnosis left foot abscess (1) Bipolar disorder with moderate depression ICD Code: F31.32 (2) Foot abscess, left ICD Code: L02.612 Diagnosis: Principal (3) Hypertension ICD Code: I10 (4) Abdominal pain ICD Code: R10.9 (5) Anxiety ICD Code: F41.9 Procedures Aspiration of left foot 07/18. Brief History - From Admission The patient is a 46-year-old female with past medical history of IV drug use who is presenting to the hospital with worsening left foot swelling and pain. She recently was admitted to the hospital for the same foot infection but left AGAINST MEDICAL ADVICE on 2 occasions. She says she was directed to the hospital this time because her left foot continued to swell and she had severe 10 out of 10 pain in the area. She says she last injected IV drugs in that foot about 4 weeks ago. She said she has quit using IV drugs. She notes that her left foot is very swollen and she believes it is still getting worse. She denies any associated pus formation. She says she has had significant sweating over the past few days. She has been taking Tylenol for that as she believes she has been having fevers. She is currently requesting increased pain medications. She said she talked with the brain picker earlier this morning. She says she will need an Ativan prior to the MRI. She also requested a nicotine patch. CBC/BMP: 07/20/16 0619 07/21/16 0600 Significant Findings Laboratory Tests Test 07/19/16 07/20/16 07/21/16 13:00 06:19 06:00 Creatinine 1.30 MG/DL 1.10 MG/DL (0.50-1.00) (0.50-1.00) Estimat Glomerular Filtration 44 ML/MIN (>89) 54 ML/MIN (>89) 62 ML/MIN (>89) Rate Albumin 3.2 GM/DL (3.4-5.0) Lipase 45 U/L (73-393) Red Blood Count 3.64 MIL/MM3 (4.00-5.30) Hemoglobin 9.3 GM/DL (11.6-15.3) Hematocrit 29.1 % (35.0-46.0) Mean Corpuscular Hemoglobin 25.6 PG (27.0-34.0) Chloride Level 108 MEQ/L 108 MEQ/L (98-107) (98-107) Imaging Last Impressions Abdomen/Pelvis CT 07/20/16 0000 Signed Impressions: Service Date/Time: Wednesday, July 20, 2016 17:03 - CONCLUSION: 1. Multiple calcified nonobstructing bilateral renal calculi. 2. No acute obstructive uropathy. 3. Multiple ovarian cysts bilaterally. 4. Enlarged uterus with probable anterior fundal fibroid measuring 3.6 cm. 5. Bibasilar scattered atelectasis. 6. Mild degenerative changes and scoliosis of lumbar spine. Nima Rivera MD Abdomen X-Ray 07/19/16 0000 Signed Impressions: Service Date/Time: Tuesday, July 19, 2016 15:46 - CONCLUSION: No acute disease. Shon Alvarado MD FACR Foot MRI 07/17/16 0000 Signed Impressions: Service Date/Time: June 12:09 - CONCLUSION: 1. Complex, crescentic fluid collection on dorsum of foot with measurements given above. There some mild rim enhancement. Increased T1 and T2 signal. Differential diagnosis includes complex subcutaneous abscess or hematoma. There is associated cellulitis. No definite osteomyelitis. Shabbir Tanner MD Foot X-Ray 07/16/16 1739 Signed Impressions: Service Date/Time: Saturday, July 16, 2016 17:55 - CONCLUSION: Stable examination. Soft tissue swelling persists. Samm Garcia MD Chest X-Ray 07/16/16 1739 Signed Impressions: Service Date/Time: Saturday, July 16, 2016 17:58 - CONCLUSION: No acute disease. Samm Garcia MD PE at Discharge GENERAL: Well-nourished, well-developed patient. SKIN: Focused skin assessment warm/dry. HEAD: Normocephalic, atraumatic. EYES: No scleral icterus. No injection or drainage. NECK: Supple, trachea midline. No JVD or lymphadenopathy. CARDIOVASCULAR: Regular rate and rhythm without murmurs, gallops, or rubs. RESPIRATORY: Breath sounds equal bilaterally. No accessory muscle use. GASTROINTESTINAL: Abdomen soft, tender in the epigastric area, nondistended. : Chaperoned exam revealed normal external genitalia without obvious growths. MUSCULOSKELETAL: No cyanosis, trace edema in the left lower extremity. Patient has redness and swelling at the dorsal aspect of the left foot. There is an open wound. Tender to palpation. Full range of motion of the toes. BACK: Nontender without obvious deformity. No CVA tenderness. PSYCH: Teary-eyed. Pt update on day of discharge The pt was upset and wanted to leave the hospital against medical advice. She said she had too much pain. Discussed with nursing. Hospital Course Left foot abscess/cellulitis The pt has left AMA on two previous occasions during treatment for the same problem. S/t IVDU. Podiatry was consulted. Previous hospitalization wound culture of the foot grew Klebsiella pneumonia, Serratia marcescens and Pseudomonas aeruginosa. She also had bacteremia due to Stenotrophomonas. MRI showed: Complex, crescentic fluid collection on dorsum of foot; There some mild rim enhancement; Increased T1 and T2 signal; There is associated cellulitis; No definite osteomyelitis. S/p aspiration of foot 07/18. Wound has dehisced. Infectious disease was consulted. Zosyn and vancomycin were switched to Levaquin. She received pain management. We followed culture data. No growth.She will follow up with podiatry as an outpt. She decided to leave the hospital against medical advice 07/21. Bipolar disease The patient has been very depressed. She did not have a plan to harm herself or anyone else. She was upset about her chronic pain. She was continued on her home meds. Psychiatry was consulted but the pt left the hospital AMA prior to being seen. She will need to be seen by psychiatry as an outpt. Tobacco and IV drug abuse The patient says she is not using IV drugs anymore. She does still use marijuana. The patient was counseled extensively. She received a nicotine patch. Abdominal pain The pt says she has a history of PUD. Lipase and LFTs unremarkable. KUB unremarkable. CT abdomen: Multiple calcified nonobstructing bilateral renal calculi; No acute obstructive uropathy; Multiple ovarian cysts bilaterally; Enlarged uterus with probable anterior fundal fibroid measuring 3.6 cm; Bibasilar scattered atelectasis; Mild degenerative changes and scoliosis of lumbar spine. Dysuria/ Vaginal discomfort Chaperoned exam without gross abnormality. UA unremarkable. The pt endorses a history of gynecological pre-cancer. She will need outpt follow-up. Pt Condition on Discharge: Stable Discharge Disposition: Discharge Home Discharge Time: <= 30 minutes Discharge Instructions DIET: Follow Instructions for: Heart Healthy Diet Follow up Referrals: Podiatry @ [facility] with Anders Alberto DPM Continued Medications: Clonazepam (Klonopin) 2 Mg Tab 2 MG PO BID #60 Ref 0 TAB Clonidine (Clonidine) 0.2 Mg Tab 0.2 MG PO BID Blood Pressure Management #60 Ref 0 TAB Gabapentin (Gabapentin) 600 Mg Tab 1200 MG PO BID #60 Ref 0 TAB Hydroxyzine Pamoate (Vistaril) 50 Mg Cap 100 MG PO BID Ref 0 CAP Quetiapine (Seroquel) 200 Mg Tab 200 MG PO BID #60 Ref 0 TAB Cristobal Kauffman DO July 21, 2016 10:21
[2016-07-22] MEDS ORDERED: VANCOMYCIN TROUGH ONE (05:45)
== END 2016-07-21 10:07 | disposition left against medical advice (07) | DRG 603 ==
LOC: PHED 16:06 → PHEDA 19:15 → PHICU 22:10 → PH3A 07-18 17:36
PROVIDERS: ADMIT Hospitalist; ATTEND Hospitalist
PROC: 0H9NXZX Drainage of Left Foot Skin, External Approach, Diagnostic (ICD-10-PCS; principal; 2016-07-18)
DX: L02.612 Cutaneous abscess of left foot (principal); K51.90 Ulcerative colitis, unspecified, without complications; I10 Essential (primary) hypertension; F31.32 Bipolar disorder, current episode depressed, moderate; N20.0 Calculus of kidney; J45.909 Unspecified asthma, uncomplicated; J44.9 Chronic obstructive pulmonary disease, unspecified; F41.9 Anxiety disorder, unspecified; K21.9 Gastro-esophageal reflux disease without esophagitis; G47.00 Insomnia, unspecified; F17.210 Nicotine dependence, cigarettes, uncomplicated; Z91.19 Patient's noncompliance with other medical treatment and regimen; F12.10 Cannabis abuse, uncomplicated; F11.10 Opioid abuse, uncomplicated; D64.9 Anemia, unspecified; N83.202 Unspecified ovarian cyst, left side; N83.201 Unspecified ovarian cyst, right side; D25.9 Leiomyoma of uterus, unspecified; R30.0 Dysuria; R19.7 Diarrhea, unspecified
CPT/HCPCS: 71010; 73630; 73720; 74000; 74176; 76937; 80048; 80053; 80202; 80307; 81001; 83605; 83690; 83735; 84703; 85025; 85027; 85610; 85652; 85730; 86140; 87015; 87040; 87070; 87116; 87205; 87206; 87493; 96365; 96367; A9579; J1644; J1885; J2060; J2270; J2405; J2543; J3370; J7042; J7050; Q9963

== ENCOUNTER 2016-08-04 12:45 | Emergency (ER) | payer SELFPAY ==
[~2016-08-04] VITALS: Ht 162.6 cm; Wt 72.0 kg
[~2016-08-04 12:45] MED LIST changes: -BUSP15TA PO; +CLON0.2T PO
[2016-08-04 12:52] VITALS: BP 138/92; PULSE 98; RESP 18; TEMP 98.3; O2SAT 94
[2016-08-04] MEDS ORDERED: CEPH-460 PO (13:36)
--- NOTE | 2016-08-04 13:36 | PD ---
HPI Chief Complaint: Skin Problem Time Seen by Provider: 13:27 Travel History International Travel<30 days: No Contact w/Intl Traveler<30days: No Traveled to known affect area: No History of Present Illness HPI Patient is a 46-year-old female with history of active IV drug abuse who presents the emergency department with complaint of swelling. Patient has been injecting IV drugs into the dorsal forearm on the left and the dorsal hand on the right. States that she has been having redness and swelling within these regions. Notes associated pain, moderate. Throbbing. She denies any fevers or chills. Upon chart review patient has been here multiple times, with related to admissions for IV drug abuse and sepsis and unfortunately she leaves AGAINST MEDICAL ADVICE every time. She has yet to establish treatment for her chemical dependency as an outpatient. PFSH Past Medical History Arthritis: No Asthma: Yes Autoimmune Disease: No Bipolar Disorder: Yes Anxiety: Yes Depression: Yes Heart Rhythm Problems: Yes (PALPITATIONS) Cancer: Yes (CERVICAL, needs surgery yet) Cardiac Catheterization: No Cardiovascular Problems: Yes (HTN, [place]) High Cholesterol: No Congestive Heart Failure: No COPD: Yes Cerebrovascular Accident: Yes (STROKE AND SEIZURES) Diabetes: No Diminished Hearing: No Endocrine: No Gastrointestinal Disorders: Yes (COLITIS) GERD: Yes Genitourinary: Yes (UTI, polynephritis) Headaches: Yes Hiatal Hernia: No Heparin Induced Thrombocytopen: No Herniated Disk: Yes Hypertension: Yes (during stress or pain only) Immune Disorder: No Implanted Vascular Access Dvce: No Insomnia: Yes Kidney Stones: Yes Musculoskeletal: Yes (CHRONIC BACK PAIN) Neurologic: Yes (BRAIN INJURY) Psychiatric: Yes Reproductive: Yes Respiratory: Yes (COPD) Immunizations Current: Yes Migraines: Yes Myocardial Infarction: Yes (2011) Renal Failure: No Seizures: Yes (WITHDRAWL) Sickle Cell Disease: No Sleep Apnea: No Thyroid Disease: No Ulcer: Yes PNEUMOCCOCAL Vaccine (Year): 2 ?: Not Menopausal: No : 10 Para: 6 Miscarriage: 3 : 1 Ectopic : Yes (1994) Ovarian Cysts: Yes Dilation and Curettage (D&C): Yes Tubal Ligation: Yes Past Surgical History Abdominal Surgery: Yes (appendectomy ) AICD: No Appendectomy: Yes Arteriovenous Shunt: No Cardiac Surgery: No Coronary Artery Bypass Graft: No Ear Surgery: No Endocrine Surgery: No Eye Surgery: No Genitourinary Surgery: No Gynecologic Surgery: Yes (ectopic prenancy removed) Insulin Pump: No Joint Replacement: No Neurologic Surgery: Yes (HERNIATED LUMBAR DISCS ) Oral Surgery: No Pacemaker: No Thoracic Surgery: No Other Surgery: Yes (LEFT HAND SURGERY) Social History Alcohol Use: No Tobacco Use: Yes (/ ppd) Substance Use: Yes (IV DRUGS) Allergies-Medications (Allergen,Severity, Reaction): Coded Allergies: Sulfa (Verified Allergy, Severe, Rash, 08/04/16) *MDRO Multi-Drug Resistant Organism (Verified Adverse Reaction, Unknown, Cleared, 08/04/16) 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 Cleared per Infection Control: MRSA PCR negative - 01/01/2015 & 09/27/2015 Compazine (Verified Adverse Reaction, Unknown, ANGINA, 08/04/16) Magnesium Sulfate (Verified Adverse Reaction, Unknown, PRUITIC RASH, ) Terbutaline (Verified Adverse Reaction, Unknown, HEART RATE ELEVATES, 08/04) Reported Meds & Prescriptions Reported Meds & Active Scripts Active Keflex (Cephalexin) 500 Mg Capsule 500 Mg PO QID 7 Days Gabapentin 600 Mg Tab 1,200 Mg PO BID Reported Clonidine (Clonidine HCl) 0.2 Mg Tab 0.2 Mg PO BID Klonopin (Clonazepam) 2 Mg Tab 2 Mg PO BID Seroquel (Quetiapine Fumarate) 200 Mg Tab 200 Mg PO BID Vistaril (Hydroxyzine Pamoate) 50 Mg Cap 100 Mg PO BID Review of Systems ROS Limitations: Poor Historian Except as stated in HPI: all other systems reviewed are Neg Physical Exam Exam Limitations: Poor Historian Narrative GENERAL: Adult female, appearing drowsy but in no acute distress SKIN: Focused skin assessment warm/dry. The dorsal forearm over a vein on the left has erythema, slight swelling and minimal induration but no fluctuance. Mouth focal tenderness to palpation. No streaking erythema. The dorsal hand on the right again overlying a vein has track pickering with erythema, slight induration but no fluctuance, streaking erythema. HEAD: Normocephalic. EYES: No scleral icterus. No injection or drainage. ENT: No nasal bleeding or discharge. Mucous membranes pink and moist. NECK: Supple CARDIOVASCULAR: Regular rate and rhythm. No murmur appreciated. RESPIRATORY: No accessory muscle use. MUSCULOSKELETAL: Range of motion of the extremities and strength intact NEUROLOGICAL: Awake and drowsy normal speech. PSYCHIATRIC: Poor insight and judgment Data Data Last Documented VS Vital Signs Date Time Temp Pulse Resp B/P Pulse Ox O2 Delivery O2 Flow Rate FiO2 08/04/16 12:52 98.3 98 18 138/92 94 MDM Medical Decision Making Medical Screen Exam Complete: Yes Emergency Medical Condition: Yes Medical Record Reviewed: Yes Differential Diagnosis 46-year-old female with history of active IV drug abuse here with swelling and pain in the forearm and hand. On exam she has evidence of early cellulitis very likely from injection sites on the dorsal left forearm in the dorsal right hand. There is no evidence of abscess at this time. No fevers, tachycardia or murmur to suggest bacteremia, sepsis. Narrative Course Patient will be treated with Keflex for home and encouraged to stop using IV drugs Diagnosis Primary Impression: Cellulitis of hand Additional Impressions: Cellulitis of forearm, left IV drug abuse Referrals: [facility] call for appointment [facility] call for appointment Additional Instructions: Antibiotics as prescribed. Stop using IV drugs. Seek outpatient management for her chemical dependency. Med/Other Pt SpecificInfo: Prescription(s) given Scripts Cephalexin (Keflex)500 Mg [id number] Mg PO QID 7 Days Ref 0 Prov:Kristina Zamora MD 08/04/16 Disposition: 01 DISCHARGE HOME Condition: Stable Kristina Zamora MD Aug 04, 2016 13:36
== END 2016-08-04 13:50 | disposition home or self-care (01) ==
LOC: PHED 12:45
DX: L03.114 Cellulitis of left upper limb (principal); F19.10 Other psychoactive substance abuse, uncomplicated; J45.909 Unspecified asthma, uncomplicated; I25.2 Old myocardial infarction; I10 Essential (primary) hypertension; J44.9 Chronic obstructive pulmonary disease, unspecified; R56.9 Unspecified convulsions; K21.9 Gastro-esophageal reflux disease without esophagitis; F17.210 Nicotine dependence, cigarettes, uncomplicated; Z86.73 Personal history of transient ischemic attack (TIA), and cerebral infarction without residual deficits
CPT/HCPCS: 99283

== ENCOUNTER 2016-08-05 13:56 | Emergency (ER) | payer SELFPAY ==
[~2016-08-05] VITALS: Ht 162.6 cm; Wt 71.0 kg
[~2016-08-05 13:56] MED LIST changes: +CEPH-460 PO
[2016-08-05 14:02] VITALS: BP 152/97; PULSE 75; RESP 16; TEMP 99.3; O2SAT 96
[2016-08-05] MEDS ORDERED: SODIUM CHLOR 0.9% 1000 ML INJ 1,000 ML IV ONE (14:11)
[2016-08-05] MEDS ORDERED: VANCOMYCIN INJ 1,000 MG in SODIUM CHLOR 0.9% 250 ML INJ 250 ML IV STA (14:11)
[2016-08-05 14:16] VITALS: O2SAT 97
[2016-08-05] MEDS ORDERED: KETOROLAC TROMETHAMINE 30 MG/ML (IVP) VIAL IV PUSH ONE (14:30)
[2016-08-05] MEDS ORDERED: LIDOCAINE 1%/EPINEPHrine 1:100,000 SOLN 20 ML VIAL INFIL ONE (14:45)
--- NOTE | 2016-08-05 14:52 | PD ---
HPI Chief Complaint: Skin Problem Time Seen by Provider: 14:11 Travel History International Travel<30 days: No Contact w/Intl Traveler<30days: No Traveled to known affect area: No History of Present Illness HPI 46-year-old female with history of IV drug use, presents to the ER today with bilateral hand swelling, pain, worsening in the past few days. She also states that she has had subjective fevers. She denies any other issues or injuries. She states that the swelling started on his own, denies any drug use recently or injection recently. Modifying Factors: None Associated Signs & Symptoms: Bilateral hand pain and swelling Risk Factors: IV drug use PFSH Past Medical History Arthritis: No Asthma: Yes Autoimmune Disease: No Bipolar Disorder: Yes Anxiety: Yes Depression: Yes Heart Rhythm Problems: Yes (PALPITATIONS) Cancer: Yes (CERVICAL, needs surgery yet) Cardiac Catheterization: No Cardiovascular Problems: Yes (HTN, [place]) High Cholesterol: No Congestive Heart Failure: No COPD: Yes Cerebrovascular Accident: Yes (STROKE AND SEIZURES) Diabetes: No Diminished Hearing: No Endocrine: No Gastrointestinal Disorders: Yes (COLITIS) GERD: Yes Genitourinary: Yes (UTI, polynephritis) Headaches: Yes Hiatal Hernia: No Heparin Induced Thrombocytopen: No Herniated Disk: Yes Hypertension: Yes (during stress or pain only) Immune Disorder: No Implanted Vascular Access Dvce: No Insomnia: Yes Kidney Stones: Yes Musculoskeletal: Yes (CHRONIC BACK PAIN) Neurologic: Yes (BRAIN INJURY) Psychiatric: Yes Reproductive: Yes Respiratory: Yes (COPD) Immunizations Current: Yes Migraines: Yes Myocardial Infarction: Yes (2011) Renal Failure: No Seizures: Yes (WITHDRAWL) Sickle Cell Disease: No Sleep Apnea: No Thyroid Disease: No Ulcer: Yes PNEUMOCCOCAL Vaccine (Year): 2 ?: Unknown Menopausal: No : 10 Para: 6 Miscarriage: 3 : 1 Ectopic : Yes (1994) Ovarian Cysts: Yes Dilation and Curettage (D&C): Yes Tubal Ligation: Yes Past Surgical History Abdominal Surgery: Yes (appendectomy ) AICD: No Appendectomy: Yes Arteriovenous Shunt: No Cardiac Surgery: No Coronary Artery Bypass Graft: No Ear Surgery: No Endocrine Surgery: No Eye Surgery: No Genitourinary Surgery: No Gynecologic Surgery: Yes (ectopic prenancy removed) Insulin Pump: No Joint Replacement: No Neurologic Surgery: Yes (HERNIATED LUMBAR DISCS ) Oral Surgery: No Pacemaker: No Thoracic Surgery: No Other Surgery: Yes (LEFT HAND SURGERY) Social History Alcohol Use: Yes Tobacco Use: Yes Substance Use: Yes Allergies-Medications (Allergen,Severity, Reaction): Coded Allergies: Sulfa (Verified Allergy, Severe, Rash, 08/04/16) *MDRO Multi-Drug Resistant Organism (Verified Adverse Reaction, Unknown, Cleared, 08/04/16) 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 Cleared per Infection Control: MRSA PCR negative - 01/01/2015 & 09/27/2015 Compazine (Verified Adverse Reaction, Unknown, ANGINA, 08/04/16) Magnesium Sulfate (Verified Adverse Reaction, Unknown, PRUITIC RASH, ) Terbutaline (Verified Adverse Reaction, Unknown, HEART RATE ELEVATES, 08/04) Reported Meds & Prescriptions Reported Meds & Active Scripts Active Keflex (Cephalexin) 500 Mg Capsule 500 Mg PO QID 7 Days Gabapentin 600 Mg Tab 1,200 Mg PO BID Reported Clonidine (Clonidine HCl) 0.2 Mg Tab 0.2 Mg PO BID Klonopin (Clonazepam) 2 Mg Tab 2 Mg PO BID Seroquel (Quetiapine Fumarate) 200 Mg Tab 200 Mg PO BID Vistaril (Hydroxyzine Pamoate) 50 Mg Cap 100 Mg PO BID Review of Systems Except as stated in HPI: all other systems reviewed are Neg Physical Exam Narrative GENERAL: Well-developed middle age white female patient currently in moderate distress. Awake and oriented 3. SKIN: Focused skin assessment warm/dry. HEAD: Atraumatic. Normocephalic. EYES: Pupils equal and round. No scleral icterus. No injection or drainage. ENT: No nasal bleeding or discharge. Mucous membranes pink and moist. NECK: Trachea midline. No JVD. CARDIOVASCULAR: Regular rate and rhythm. No murmur appreciated. RESPIRATORY: No accessory muscle use. Clear to auscultation. Breath sounds equal bilaterally. GASTROINTESTINAL: Abdomen soft, non-tender, nondistended. Hepatic and splenic margins not palpable. MUSCULOSKELETAL: No obvious deformities. No clubbing. No cyanosis. No edema. EXTREMITIES: No clubbing, cyanosis, or edema. Patient has a lateral hand generalized edema and erythema going up toward the wrist area. She has a to send meter abscess at the left wrist and a one centimeter abscess at the right wrist. Neurovascularly intact. NEUROLOGICAL: Awake and alert. No obvious cranial nerve deficits. Motor grossly within normal limits. Normal speech. PSYCHIATRIC: Appropriate mood and affect; insight and judgment normal. Data Data Last Documented VS Vital Signs Date Time Temp Pulse Resp B/P Pulse Ox O2 Delivery O2 Flow Rate FiO2 08/05/16 14:16 97 Room Air 08/05/16 14:02 99.3 75 16 152/97 Orders Complete Blood Count With Diff (08/05/16 14:11) Comprehensive Metabolic Panel (08/05/16 14:11) Lactic Acid Sepsis Protocol (08/05/16 14:11) Blood Culture (08/05/16 14:11) Blood Glucose (08/05/16 14:11) Ecg Monitoring (08/05/16 14:11) Iv Access Insert/Monitor (08/05/16 14:11) Oximetry (08/05/16 14:11) Oxygen Administration (08/05/16 14:11) Vancomycin Inj (Vancomycin Inj) (08/05/16 14:11) Sodium Chlor 0.9% 1000 Ml Inj (Ns 1000 M (08/05/16 14:11) Ketorolac Inj (Toradol Inj) (08/05/16 14:30) Wound Culture And Gram Stain (08/05/16 14:31) Wound Care (08/05/16 14:31) Lidocai-Epi 1%-1:100,000 Inj (Xylocaine- (08/05/16 14:45) MDM Medical Decision Making Medical Screen Exam Complete: Yes Emergency Medical Condition: Yes Medical Record Reviewed: Yes Differential Diagnosis Hand cellulitis/abscess of the wrist Narrative Course Patient has obvious track pickering on evaluation. Most of these appear to be scabbed over and are fairly new. She has abscesses as well as hand cellulitis. Sepsis workup and IV antibiotics have been ordered for the patient once the cultures are drawn. Patient was offered an I&D. However, when nurse went in to get blood work, patient refused to get anything else done, does not want to get the I&D done and she wants to leave. We have talked her about the fact that the abscesses and the infection is liable to get worse, can cause sepsis and cause further morbidity including . Patient is still refusing to stay. AMA: The risks of leaving against medical advice without further evaluation treatment were discussed with the patient. These risks include sepsis, disability, cardiac dysfunction, cardiac dysrhythmia, possible heart attack, possible stroke or . The patient indicated understanding of these risks and appeared to have the capacity to make this decision. Diagnosis Primary Impression: Cellulitis of hand Additional Impressions: Substance abuse Abscess of dorsum of hand Med/Other Pt SpecificInfo: Prescription(s) given Disposition: 07 AGAINST MEDICAL ADVICE Condition: Stable Az Downey MD Aug 05, 2016 14:52
== END 2016-08-05 17:35 | disposition left against medical advice (07) ==
LOC: NEPC 13:56
DX: L03.119 Cellulitis of unspecified part of limb (principal); Z53.21 Procedure and treatment not carried out due to patient leaving prior to being seen by health care provider; M79.642 Pain in left hand; M79.641 Pain in right hand; F19.10 Other psychoactive substance abuse, uncomplicated; L02.511 Cutaneous abscess of right hand; R50.9 Fever, unspecified; J45.909 Unspecified asthma, uncomplicated; I10 Essential (primary) hypertension; Z72.0 Tobacco use
CPT/HCPCS: 99283

== ENCOUNTER 2016-08-15 17:13 | Inpatient (IN) | payer SELFPAY ==
[~2016-08-15] VITALS: Ht 162.6 cm; Wt 72.3 kg
[2016-08-15 17:21] VITALS: BP 132/107; PULSE 94; RESP 20; TEMP 99.3; O2SAT 98
--- NOTE | 2016-08-15 17:49 | PD ---
HPI Chief Complaint: Respiratory Symptoms Time Seen by Provider: 17:26 Travel History International Travel<30 days: No Contact w/Intl Traveler<30days: No Traveled to known affect area: No History of Present Illness HPI This 46-year-old female is complaining of cough and left-sided chest pain. Says the symptoms started this morning. She feels short of breath. She does smoke cigarettes. She has recently been in the hospital for treatment of an infection of her left foot related to IV drug use. She says she has not used IV drugs for several weeks. She had cultures of the foot is positive for Pseudomonas and Serratia. She has had multiple cultures which are been negative. She denies recent IV drug use. She has a history of tubal ligation. She says the chest pain she is having is quite severe. It is aggravated by breathing. PFSH Past Medical History Arthritis: No Asthma: Yes Autoimmune Disease: No Bipolar Disorder: Yes Anxiety: Yes Depression: Yes Heart Rhythm Problems: Yes (PALPITATIONS) Cancer: Yes (CERVICAL, needs surgery yet) Cardiac Catheterization: No Cardiovascular Problems: Yes (HTN, ID) High Cholesterol: No Congestive Heart Failure: No COPD: Yes Cerebrovascular Accident: Yes (STROKE AND SEIZURES) Diabetes: No Diminished Hearing: No Endocrine: No Gastrointestinal Disorders: Yes (COLITIS) GERD: Yes Genitourinary: Yes (UTI, polynephritis) Headaches: Yes Hiatal Hernia: No Heparin Induced Thrombocytopen: No Herniated Disk: Yes Hypertension: Yes (during stress or pain only) Immune Disorder: No Implanted Vascular Access Dvce: No Insomnia: Yes Kidney Stones: Yes Musculoskeletal: Yes (CHRONIC BACK PAIN) Neurologic: Yes (BRAIN INJURY) Psychiatric: Yes Reproductive: Yes Respiratory: Yes (COPD) Immunizations Current: Yes Migraines: Yes Myocardial Infarction: Yes (2011) Renal Failure: No Seizures: Yes (WITHDRAWL) Sickle Cell Disease: No Sleep Apnea: No Thyroid Disease: No Ulcer: Yes PNEUMOCCOCAL Vaccine (Year): 2 ?: Not Menopausal: No : 10 Para: 6 Miscarriage: 3 : 1 Ectopic : Yes (1994) Ovarian Cysts: Yes Dilation and Curettage (D&C): Yes Tubal Ligation: Yes Past Surgical History Abdominal Surgery: Yes (appendectomy ) AICD: No Appendectomy: Yes Arteriovenous Shunt: No Cardiac Surgery: No Coronary Artery Bypass Graft: No Ear Surgery: No Endocrine Surgery: No Eye Surgery: No Genitourinary Surgery: No Gynecologic Surgery: Yes (ectopic prenancy removed) Insulin Pump: No Joint Replacement: No Neurologic Surgery: Yes (HERNIATED LUMBAR DISCS ) Oral Surgery: No Pacemaker: No Thoracic Surgery: No Other Surgery: Yes (LEFT HAND SURGERY, left foot ) Social History Alcohol Use: No Tobacco Use: Yes (6 cigs day) Substance Use: Yes (states 2 weeks ago) Allergies-Medications (Allergen,Severity, Reaction): Coded Allergies: Sulfa (Verified Allergy, Severe, Rash, 08/15/16) *MDRO Multi-Drug Resistant Organism (Verified Adverse Reaction, Unknown, Cleared, 08/15/16) 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 Cleared per Infection Control: MRSA PCR negative - 01/01/2015 & 09/27/2015 Compazine (Verified Adverse Reaction, Unknown, ANGINA, 08/15/16) Magnesium Sulfate (Verified Adverse Reaction, Unknown, PRUITIC RASH, ) Terbutaline (Verified Adverse Reaction, Unknown, HEART RATE ELEVATES, 08/15) Reported Meds & Prescriptions Reported Meds & Active Scripts Active Gabapentin 600 Mg Tab 1,200 Mg PO BID Reported Klonopin (Clonazepam) 2 Mg Tab 1 Mg PO TID Seroquel (Quetiapine Fumarate) 200 Mg Tab 200 Mg PO HS Vistaril (Hydroxyzine Pamoate) 50 Mg Cap 100 Mg PO BID Review of Systems General / Constitutional: Positive: Fever, No: Chills Eyes: No: Diploplia, Blurred Vision HENT: No: Headaches, Vertigo Cardiovascular: Positive: Chest Pain or Discomfort Respiratory: Positive: Cough, Shortness of Breath Gastrointestinal: No: Vomiting, Diarrhea Genitourinary: No: Frequency Musculoskeletal: Positive: Pain Skin: No Rash, No Itching Neurologic: No: Weakness, Dizziness Hematologic/Lymphatic: No: Easy Bruising Physical Exam Narrative GENERAL: Well-developed female SKIN: Focused skin assessment warm/dry. HEAD: Atraumatic. Normocephalic. EYES: Pupils equal and round. No scleral icterus. No injection or drainage. ENT: No nasal bleeding or discharge. Mucous membranes pink and moist. NECK: Trachea midline. No JVD. CARDIOVASCULAR: Regular rate and rhythm. No murmur appreciated. RESPIRATORY: No accessory muscle use. There are scattered rhonchi Breath sounds equal bilaterally. GASTROINTESTINAL: Abdomen soft, non-tender, nondistended. Hepatic and splenic margins not palpable. MUSCULOSKELETAL: No obvious deformities. No clubbing. No cyanosis. No edema. Wound on her foot is healing well NEUROLOGICAL: Awake and alert. No obvious cranial nerve deficits. Motor grossly within normal limits. Normal speech. PSYCHIATRIC: Appropriate mood and affect; insight and judgment normal. Data Data Last Documented VS Vital Signs Date Time Temp Pulse Resp B/P Pulse Ox O2 Delivery O2 Flow Rate FiO2 08/15/16 19:09 90 18 149/100 94 Room Air 08/15/16 17:21 99.3 Orders Electrocardiogram (08/15/16 17:39) Complete Blood Count With Diff (08/15/16 17:39) Basic Metabolic Panel (Bmp) (08/15/16 17:39) Troponin I (08/15/16 17:39) D-Dimer (08/15/16 17:39) Chest, Pa & Lat (08/15/16 17:39) Ketorolac Inj (Toradol Inj) (08/15/16 18:15) Blood Culture (08/15/16 18:30) Lactic Acid Sepsis Protocol (08/15/16 18:30) Clonazepam (Klonopin) (08/15/16 19:00) Ceftriaxone Inj (Rocephin Inj) (08/15/16 19:00) Ct Pulmonary Angiogram (08/15/16 19:11) Ceftriaxone Inj (Rocephin Inj) (08/15/16 19:15) Azithromycin Inj (Zithromax Inj) (08/15/16 19:15) Vancomycin Inj (Vancomycin Inj) (08/15/16 19:15) Metronidazole 500 Mg Inj (Flagyl 500 Mg (08/15/16 19:15) Vascular Access Team Consult/P PRN (08/15/16 19:49) Vascular Poc Ultrasound (08/15/16 ) Acetaminophen (Tylenol) (08/15/16 20:00) Admit Order (Ed Use Only) (08/15/16 20:14) Vancomycin Consult Pharmacy (Vancomycin (08/15/16 21:00) Cefepime Inj (Maxipime Inj) (08/16/16 09:00) Admit To Inpatient (08/15/16 ) Vital Signs (Adult) Q4H (08/15/16 20:13) Activity Oob Ad Tamika (08/15/16 20:13) Marine Biologist / Telemetry .CONTINUOUS (08/15/16 20:13) Intake + Output MICHELLE.QSHIFT (08/15/16 20:13) Diet Regular Basic (08/16/16 Breakfast) Sodium Chlor 0.9% 1000 Ml Inj (Ns 1000 M (08/15/16 20:13) Sodium Chloride 0.9% Flush (Ns Flush) (08/15/16 20:15) Sodium Chloride 0.9% Flush (Ns Flush) (08/15/16 21:00) Ondansetron Inj (Zofran Inj) (08/15/16 20:15) Comprehensive Metabolic Panel (08/16/16 06:00) Complete Blood Count With Diff (08/16/16 06:00) Scd Bilateral/Knee High MICHELLE.BID (08/15/16 20:13) Len Bilateral/Knee High MICHELLE.QSHIFT (08/15/16 20:13) Acetaminophen (Tylenol) (08/15/16 20:15) Oxycodone (Roxicodone) (08/15/16 20:15) Oxycodone (Roxicodone) (08/15/16 20:15) Docusate Sodium-Senna (Ramona-Colace) (08/15/16 21:00) Magnesium Hydroxide Liq (Milk Of Magnesi (08/15/16 20:15) Sennosides (Senokot) (08/15/16 20:15) Bisacodyl Supp (Dulcolax Supp) (08/15/16 20:15) Lactulose Liq (Lactulose Liq) (08/15/16 20:15) Inpatient Certification (08/15/16 ) Clonazepam (Klonopin) (08/16/16 09:00) Gabapentin (Neurontin) (08/15/16 21:00) Hydroxyzine Pamoate (Vistaril) (08/15/16 21:00) Quetiapine (Seroquel) (08/15/16 21:00) Labs Laboratory Tests Test 08/15/16 18:37 White Blood Count 13.6 TH/MM3 Red Blood Count 4.05 MIL/MM3 Hemoglobin 9.9 GM/DL Hematocrit 31.0 % Mean Corpuscular Volume 76.4 FL Mean Corpuscular Hemoglobin 24.3 PG Mean Corpuscular Hemoglobin 31.9 % Concent Red Cell Distribution Width 15.1 % Platelet Count 393 TH/MM3 Mean Platelet Volume 9.3 FL Neutrophils (%) (Auto) 66.9 % Lymphocytes (%) (Auto) 23.1 % Monocytes (%) (Auto) 5.5 % Eosinophils (%) (Auto) 0.9 % Basophils (%) (Auto) 3.6 % Neutrophils # (Auto) 9.2 TH/MM3 Lymphocytes # (Auto) 3.1 TH/MM3 Monocytes # (Auto) 0.7 TH/MM3 Eosinophils # (Auto) 0.1 TH/MM3 Basophils # (Auto) 0.5 TH/MM3 CBC Comment AUTO DIFF Differential Comment AUTO DIFF CONFIRMED Platelet Estimate NORMAL Platelet Morphology Comment NORMAL D-Dimer Quantitative (PE/DVT) 1.69 MG/L FEU Sodium Level 142 MEQ/L Potassium Level 3.7 MEQ/L Chloride Level 107 MEQ/L Carbon Dioxide Level 26.1 MEQ/L Anion Gap 9 MEQ/L Blood Urea Nitrogen 10 MG/DL Creatinine 0.75 MG/DL Estimat Glomerular Filtration 84 ML/MIN Rate Random Glucose 95 MG/DL Lactic Acid Level 0.6 mmol/L Calcium Level 8.5 MG/DL Troponin I LESS THAN 0.02 NG/ML MDM Medical Decision Making Medical Screen Exam Complete: Yes Emergency Medical Condition: Yes Medical Record Reviewed: Yes Differential Diagnosis Differential includes PE, bronchitis, pneumonia Narrative Course X-ray shows left lower lobe pneumonia. White count is 13,000. Cultures have been obtained. The lactate is normal. The d-dimer is elevated and she didn't have an acute onset of pleuritic pain and shortness of breath so a CTA has been done to assess for pulmonary embolus. There is no evidence of pulmonary embolus though there is left lower lobe consolidation Sepsis Criteria SIRS Criteria (2 or more): Heart rate over 90, WBC > 48675, < 4000 or > 10% bands Sepsis Criteria (SIRS+source): Infect source susp/known Criteria Outcome: Meets sepsis criteria Diagnosis Primary Impression: Pneumonia Qualified Code: J18.1 - Pneumonia of left lower lobe due to infectious organism Additional Impression: Sepsis Qualified Code: A41.9 - Sepsis, due to unspecified organism Admitting Information Admitting Physician Requests: Admit Aureliano Abdi MD Aug 15, 2016 17:49
[2016-08-15] MEDS ORDERED: KETOROLAC TROMETHAMINE 30 MG/ML (IVP) VIAL IV PUSH ONE (18:15)
[2016-08-15 18:48] LABS: AUTOMATED NEUTROPHIL # 9.2 TH/MM3 (1.8-7.7); BASOPHIL # 0.5 TH/MM3 (0-0.2); BASOPHIL % 3.6 % (0.0-2.0); EOSINOPHIL # 0.1 TH/MM3 (0-0.4); EOSINOPHIL % 0.9 % (0.0-4.0); LYMPH % 23.1 % (9.0-44.0); LYMPHOCYTE # 3.1 TH/MM3 (1.0-4.8); MEAN CELL VOLUME 76.4 FL (80.0-100.0); MEAN CORPUSCULAR HEMOGLOBIN 24.3 PG (27.0-34.0); MEAN CORPUSCULAR HGB CONC 31.9 % (32.0-36.0); MONO % 5.5 % (0.0-8.0); NEUT % 66.9 % (16.0-70.0); PLATELET COUNT 393 TH/MM3 (150-450); RED BLOOD COUNT 4.05 MIL/MM3 (4.00-5.30); RED CELL DISTRIBUTION WIDTH 15.1 % (11.6-17.2); WHITE BLOOD COUNT 13.6 TH/MM3 (4.0-11.0)
--- NOTE | 2016-08-15 18:48 | RADRPT ---
EXAM DATE/TIME: 08/15/2016 17:47 [facility] COMPARISON: CHEST PA & LAT, January 22, 2015, 15:45. INDICATIONS : Shortness of breath. MEDICAL HISTORY : Cerebrovascular disease. Hypertension. Myocardial infarction SURGICAL HISTORY : Appendectomy. Cholecystectomy. ENCOUNTER: Initial ACUITY: 1 day PAIN SCORE: 4/10 LOCATION: Bilateral chest FINDINGS: PA and lateral views of the chest showing left lower lobe infiltrate. Remaining lungs are clear. No e ffusions. Heart is normal in size. Mild scoliotic curvature. CONCLUSION: Left lower lobe infiltrate. Buzz Pena Jr., MD on August 15, 2016 at 18:46 Board Certified Radiologist. This report was verified electronically.
[2016-08-15 18:51] LABS: HEMO FLAGS AUTO DIFF
[2016-08-15 18:54] LABS: CHLORIDE 107 MEQ/L (98-107); POTASSIUM 3.7 MEQ/L (3.5-5.1); SODIUM (NA) 142 MEQ/L (136-145)
[2016-08-15 18:58] LABS: ANION GAP 9 MEQ/L (5-15); BICARBONATE 26.1 MEQ/L (21.0-32.0); BLOOD UREA NITROGEN 10 MG/DL (7-18)
[2016-08-15] MEDS ORDERED: clonazePAM 1 MG TAB PO ONE (19:00)
[2016-08-15] MEDS ORDERED: cefTRIAXone INJ 1,000 MG in SODIUM CHLORIDE 0.9% INJ 100 ML IV ONE (19:00)
[2016-08-15 19:01] LABS: GLOMERULAR FILTRATION RATE 84 ML/MIN (>89)
[2016-08-15 19:09] VITALS: BP 149/100; PULSE 90; RESP 18; O2SAT 94
[2016-08-15] MEDS ORDERED: VANCOMYCIN INJ 1 MG in SODIUM CHLOR 0.9% 250 ML INJ 250 ML IV STA (19:15)
[2016-08-15] MEDS ORDERED: cefTRIAXone INJ 2,000 MG in SODIUM CHLORIDE 0.9% INJ 100 ML IV STA (19:15)
[2016-08-15] MEDS ORDERED: AZITHROMYCIN INJ 500 MG in SODIUM CHLOR 0.9% 250 ML INJ 250 ML IV STA (19:15)
[2016-08-15] MEDS ORDERED: metroNIDAZOLE 500 MG INJ 100 ML IV STA (19:15)
[2016-08-15 19:22] LABS: PLATELET ESTIMATE SMEAR NORMAL (NORMAL); PLATELET MORPHOLOGY NORMAL (NORMAL); SCAN/DIFF AUTO DIFF CONFIRMED
[2016-08-15] MEDS ORDERED: ACETAMINOPHEN 325 MG TAB PO ONE (20:00)
[2016-08-15] MEDS ORDERED: LACTULOSE SYRUP 20 GM/30 ML CUP PO PRN (20:15)
[2016-08-15] MEDS ORDERED: MAGNESIUM HYDROXIDE SUSP 30 ML CUP PO PRN (20:15)
[2016-08-15] MEDS ORDERED: ACETAMINOPHEN 325 MG TAB PO PRN (20:15)
[2016-08-15] MEDS ORDERED: ONDANSETRON HCL 4 MG/2 ML VIAL IVP PRN (20:15)
[2016-08-15] MEDS ORDERED: SENNOSIDES 8.6 MG TAB PO PRN (20:15)
[2016-08-15] MEDS ORDERED: BISACODYL 10 MG SUPP RECTAL PRN (20:15)
[2016-08-15] MEDS ORDERED: SODIUM CHLORIDE 0.9% FLUSH 10 ML FLUSH IV FLUSH PRN (20:15)
[2016-08-15] MEDS: SODIUM CHLOR 0.9% 1000 ML INJ 1,000 ML IV SCH (20:53)
[2016-08-15 20:54] VITALS: BP 141/84; PULSE 88; RESP 18; O2SAT 95
[2016-08-15] MEDS ORDERED: QUEtiapine FUMARATE 200 MG TAB PO SCH (21:00)
[2016-08-15] MEDS ORDERED: SODIUM CHLORIDE 0.9% FLUSH 10 ML FLUSH IV FLUSH SCH (21:00)
[2016-08-15] MEDS ORDERED: Vancomycin Consult Pharmacy 1 EA OTHER SCH (21:00)
[2016-08-15] MEDS ORDERED: IOHEXOL 350 MG/ML 10 ML VIAL (for RAD DIAG) IV ONE (21:27)
--- NOTE | 2016-08-15 21:31 | RADRPT ---
EXAM DATE/TIME: 08/15/2016 20:53 [facility] COMPARISON: CT PULMONARY ANGIOGRAM, March 06, 2015, 13:20. INDICATIONS : Shortness of breath,cough,left side chest pain,elavated d-dimer IV CONTRAST: 50 cc Omnipaque 350 (iohexol) IV RADIATION DOSE: 11.72 CTDIvol (mGy) MEDICAL HISTORY : Chronic obstructive pulmonary disease. Cardiovascular disease Hypertension.asthma SURGICAL HISTORY : Tubal ligation. Appendectomy.ectopic preg ENCOUNTER: Initial ACUITY: 1 day PAIN SCALE: 4/10 LOCATION: chest TECHNIQUE: Volumetric scanning of the chest was performed using a pulmonary embolism protocol MIP images were re constructed. Using automated exposure control and adjustment of the mA and/or kV according to patien t size, radiation dose was kept as low as reasonably achievable to obtain optimal diagnostic quality images. DICOM format image data is available electronically for review and comparison. FINDINGS: PULMONARY ARTERIES: No filling defects are seen in the pulmonary arteries through the segmental level. LUNGS: Rounded consolidation involving the left posterior lateral costophrenic angle. PLEURAE: Small left pleural effusion. MEDIASTINUM: There is good visualization of the great vessels of the middle mediastinum. No evidence of mediastin al or hilar adenopathy/mass. MUSCULOSKELETAL: Within normal limits for patient age. MISCELLANEOUS: The visualized upper abdominal organs demonstrate no acute abnormality. CONCLUSION: 1. Small left pleural effusion with rounded area consolidation involving the left lower lobe. This co nsolidation could relate to rounded atelectasis or developing infiltrate. I cannot completely exclude a malignancy although this is felt less likely. Followup studies to document resolution suggested. 2. No pulmonary embolus. Buzz Pena Jr., MD on August 15, 2016 at 21:25 Board Certified Radiologist. This report was verified electronically.
[2016-08-15] MEDS: GABAPENTIN 300 MG CAP PO SCH (21:51)
[2016-08-15] MEDS: DOCUSATE SODIUM 50 MG/SENNA 8.6 MG TAB PO SCH (21:51)
[2016-08-15 22:02] VITALS: BP 138/92; PULSE 84; RESP 18; O2SAT 96
[2016-08-15 22:41] VITALS: BP 146/106; PULSE 88; RESP 16; TEMP 98.7; O2SAT 95
[2016-08-15] MEDS ORDERED: CYCLOBENZAPRINE HCL 10 MG TAB PO ONE (23:00)
[2016-08-16] VITALS (7 sets, daily range): BP systolic 116–150; BP diastolic 67–92; PULSE 60–95; RESP 12–20; TEMP 97.2–98; O2SAT 93–99
[2016-08-16 06:07] LABS: AUTOMATED NEUTROPHIL # 5.6 TH/MM3 (1.8-7.7); BASOPHIL # 0.1 TH/MM3 (0-0.2); BASOPHIL % 0.6 % (0.0-2.0); EOSINOPHIL # 0.2 TH/MM3 (0-0.4); EOSINOPHIL % 1.7 % (0.0-4.0); HEMATOCRIT 28.6 % (35.0-46.0); LYMPHOCYTE # 2.3 TH/MM3 (1.0-4.8); MEAN CELL VOLUME 77.5 FL (80.0-100.0); MEAN CORPUSCULAR HEMOGLOBIN 24.3 PG (27.0-34.0); MEAN CORPUSCULAR HGB CONC 31.3 % (32.0-36.0); MONO % 7.8 % (0.0-8.0); NEUT % 63.9 % (16.0-70.0); PLATELET COUNT 317 TH/MM3 (150-450); RED CELL DISTRIBUTION WIDTH 15.6 % (11.6-17.2); WHITE BLOOD COUNT 8.9 TH/MM3 (4.0-11.0)
[2016-08-16 06:08] LABS: HEMO FLAGS AUTO DIFF
[2016-08-16] MEDS: SODIUM CHLOR 0.9% 1000 ML INJ 1,000 ML IV SCH ×2 (06:13→13:02)
[2016-08-16 06:14] LABS: CHLORIDE 110 MEQ/L (98-107); POTASSIUM 3.6 MEQ/L (3.5-5.1); SODIUM (NA) 143 MEQ/L (136-145)
[2016-08-16 06:20] LABS: ANION GAP 7 MEQ/L (5-15); BLOOD UREA NITROGEN 11 MG/DL (7-18)
[2016-08-16 06:23] LABS: ALT (GPT) 12 U/L (10-53); AST (GOT) 11 U/L (15-37); GLOMERULAR FILTRATION RATE 92 ML/MIN (>89)
[2016-08-16 06:25] LABS: TOTAL BILIRUBIN ADULT 0.2 MG/DL (0.2-1.0)
[2016-08-16 06:26] LABS: ALKALINE PHOSPHATASE 93 U/L (45-117)
[2016-08-16 06:27] LABS: PLATELET ESTIMATE SMEAR NORMAL (NORMAL); PLATELET MORPHOLOGY NORMAL (NORMAL); SCAN/DIFF AUTO DIFF CONFIRMED
--- NOTE | 2016-08-16 07:55 | HHI.HP ---
[facility] No Primary Care Physician Admission Diagnosis PNEUMONIA, SEPSIS Diagnoses: (1) Sepsis Diagnosis: Principal (2) Pneumonia Diagnosis: Principal (3) IV drug abuse Diagnosis: Secondary Chief Complaint: Cough, left-sided chest pain, shortness of breath Travel History International Travel<30 Days: No Contact w/Intl Traveler <30 Da: No Traveled to Known Affected Are: No Sepsis Criteria SIRS Criteria (2 or more): Heart rate over 90, WBC > 81285, < 4000 or > 10% bands Sepsis Criteria (SIRS+source): Infect source susp/known History of Present Illness Written by Andres Patrick, acting as scribe for Dr. Carbone on 08/16/16 at 08: 28. 46-year-old female with rather unfortunate history of IV drug use, frequent hospital evaluations, frequent injection site infections who presented to the hospital because of left-sided chest discomfort. Patient states that she was in her normal state of health until yesterday morning when she woke up and she had a left-sided chest pain which she describes is started in her back and radiating to the front of her chest. She thought it may have been a muscle cramp and she had her boyfriend give her a massage and it did not help with the pain. The patient proceeded to help someone clean a house and the pain got so severe she had to lay down. The pain progressively got worse with associated shortness of breath so she came to the hospital for evaluation. The patient might any nausea, vomiting, diaphoresis, fever, lightheadedness, dizziness. Patient had workup done in the emergency department found to have leukocytosis, tachycardia and left lung infiltrate. Patient was admitted the hospital for sepsis. Upon evaluating the patient she is laying in bed still indicating that she is having pain in her left chest. She indicates that the Toradol worked for her and helped her get some rest. Patient indicates that last time that she use any IV drugs with 3-1/2 weeks ago she indicates that she quit at that time because of multiple abscesses on bilateral hands that was treated at [facility]. The patient was admitted for further evaluation and management Review of Systems Constitutional: DENIES: Diaphoretic episodes, Fatigue, Fever, Weight gain, Weight loss, Chills, Dizziness, Change in appetite, Night Sweats Endocrine: DENIES: Abnorml menstrual pattern, Heat/cold intolerance, Polydipsia , Polyuria, Polyphagia Eyes: DENIES: Blurred vision, Diplopia, Eye inflammation, Eye pain, Vision loss , Double Vision Ears, nose, mouth, throat: DENIES: Hearing loss, Nasal discharge, Throat pain, Ear Pain, Running Nose, Sinus Pain Respiratory: COMPLAINS OF: Cough, DENIES: Apneas, Snoring, Wheezing, Hemoptysis, Sputum production, Shortness of breath Cardiovascular: COMPLAINS OF: Chest pain, DENIES: Palpitations, Syncope, Dyspnea on Exertion, PND, Lower Extremity Edema, Orthopnea, Claudication Gastrointestinal: DENIES: Abdominal pain, Black stools, Bloody stools, Constipation, Diarrhea, Nausea, Vomiting, Difficulty Swallowing, Anorexia Genitourinary: DENIES: Abnormal vaginal bleeding, Dysmenorrhea, Dyspareunia, Sexual dysfunction, Urinary frequency, Urinary incontinence, Urgency, Hematuria , Dysuria, Nocturia, Vaginal discharge Musculoskeletal: DENIES: Joint pain, Muscle aches, Stiffness, Joint Swelling, Back pain, Neck pain Integumentary: DENIES: Abnormal pigmentation, Pruritus, Rash, Nail changes, Breast masses, Breast skin changes, Nipple discharge Hematologic/lymphatic: DENIES: Bruising, Lymphadenopathy Immunologic/allergic: DENIES: Eczema, Urticaria Neurologic: DENIES: Abnormal gait, Headache, Localized weakness, Paresthesias, Seizures, Speech Problems, Tremor, Poor Balance Psychiatric: COMPLAINS OF: Anxiety, DENIES: Confusion, Mood changes, Depression, Hallucinations, Agitation, Suicidal Ideation, Homicidal Ideation, Delusions Past Family Social History Past Medical History IV drug use Polysubstance abuse Bipolar disorder Ulcerative colitis Crohn's disease History of ectopic History of recurrent abscesses from IV drug use Chronic obstructive pulmonary disease Fibroid uterus History of Ovarian cyst Chronic low back pain with degenerative disc disease History of Kidney stones History of seizures History of Escherichia coli and enterococcal sepsis Past Surgical History Appendectomy Multiple incision and drainages of IV drug-induced abscess Tubal ligation Reported Medications Reported Meds & Active Scripts Active Gabapentin 600 Mg Tab 1,200 Mg PO BID Reported Klonopin (Clonazepam) 2 Mg Tab 1 Mg PO TID Seroquel (Quetiapine Fumarate) 200 Mg Tab 200 Mg PO HS Vistaril (Hydroxyzine Pamoate) 50 Mg Cap 100 Mg PO BID Allergies: Coded Allergies: Sulfa (Verified Allergy, Severe, Rash, 08/15/16) *MDRO Multi-Drug Resistant Organism (Verified Adverse Reaction, Unknown, Cleared, 08/15/16) 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 Cleared per Infection Control: MRSA PCR negative - 01/01/2015 & 09/27/2015 Compazine (Verified Adverse Reaction, Unknown, ANGINA, 08/15/16) Magnesium Sulfate (Verified Adverse Reaction, Unknown, PRUITIC RASH, ) Terbutaline (Verified Adverse Reaction, Unknown, HEART RATE ELEVATES, 08/15) Family History Reviewed and unremarkable Social History Patient states that she is down to 6 cigarettes daily, she states that she's only been smoking for 4 years. She denies any alcohol use. She states that she does use marijuana. She also does IV drugs and drug of choice is morphine. Physical Exam Vital Signs Vital Signs Date Time Temp Pulse Resp B/P Pulse Ox O2 Delivery O2 Flow Rate FiO2 08/16/16 05:04 98.0 60 12 116/67 94 08/16/16 01:01 97.9 83 12 129/90 93 08/15/16 22:41 98.7 88 16 146/106 95 08/15/16 22:22 83 18 96 08/15/16 22:02 84 18 138/92 96 Room Air 08/15/16 20:54 88 18 141/84 95 Room Air 08/15/16 19:09 90 18 149/100 94 Room Air 08/15/16 17:21 99.3 94 20 132/107 98 Physical Exam GENERAL: Well-developed, well-nourished, in no acute distress. alert and orientated HEENT: Head is normocephalic without any lesions or masses noted. Facial features are symmetric. Eyes: Pupils equal round reactive to light. Extraocular muscles are intact. Conjunctivae were clear. Oropharyngeal: Pharynx without any erythema edema. Tongue is midline without deviation. Buccal mucosa is moist without any masses or lesions NECK: Supple without any masses. Trachea midline no deviation. No JVD, no bruits are appreciated CARDIAC: Regular rhythm, regular rate. S1/S2 are heard. No murmurs gallops or rubs. LUNGS: Clear to auscultation bilaterally. No wheeze, rhonchi or rales. No use of accessory muscles on inspiration or expiration. ABDOMEN: Soft, nontender. Nondistended. Bowel sounds heard in all 4 quadrants. No organomegaly or masses. Negative rebound, negative guarding EXTREMITIES: No edema, pulses are equal bilaterally. No cyanosis or clubbing. Patient does have puncture wound with mild cellulitis of the right hand between the fourthfifth metacarpal. Patient also has mild edema, erythema with puncture wound noted on the left distal/anterior wrist over the ulna NEUROLOGY: Mood and affect appear appropriate. Cranial nerves II through XII grossly intact. Muscle strength 5/5 in upper and lower extremities bilaterally. Deep tendon reflexes are 2+ in upper and lower extremities bilaterally. Laboratory Laboratory Tests Test 08/15/16 08/16/16 18:37 05:53 White Blood Count 13.6 8.9 Red Blood Count 4.05 3.70 Hemoglobin 9.9 9.0 Hematocrit 31.0 28.6 Mean Corpuscular Volume 76.4 77.5 Mean Corpuscular Hemoglobin 24.3 24.3 Mean Corpuscular Hemoglobin 31.9 31.3 Concent Red Cell Distribution Width 15.1 15.6 Platelet Count 393 317 Mean Platelet Volume 9.3 8.9 Neutrophils (%) (Auto) 66.9 63.9 Lymphocytes (%) (Auto) 23.1 26.0 Monocytes (%) (Auto) 5.5 7.8 Eosinophils (%) (Auto) 0.9 1.7 Basophils (%) (Auto) 3.6 0.6 Neutrophils # (Auto) 9.2 5.6 Lymphocytes # (Auto) 3.1 2.3 Monocytes # (Auto) 0.7 0.7 Eosinophils # (Auto) 0.1 0.2 Basophils # (Auto) 0.5 0.1 CBC Comment AUTO DIFF AUTO DIFF Differential Comment AUTO DIFF AUTO DIFF CONFIRMED CONFIRMED Platelet Estimate NORMAL NORMAL Platelet Morphology Comment NORMAL NORMAL D-Dimer Quantitative (PE/DVT) 1.69 Sodium Level 142 143 Potassium Level 3.7 3.6 Chloride Level 107 110 Carbon Dioxide Level 26.1 26.0 Anion Gap 9 7 Blood Urea Nitrogen 10 11 Creatinine 0.75 0.69 Estimat Glomerular Filtration 84 92 Rate Random Glucose 95 101 Lactic Acid Level 0.6 Calcium Level 8.5 8.0 Troponin I LESS THAN 0.02 Total Bilirubin 0.2 Aspartate Amino Transf 11 (AST/SGOT) Alanine Aminotransferase 12 (ALT/SGPT) Alkaline Phosphatase 93 Total Protein 6.3 Albumin 2.6 Date/Time Procedure Status Source Growth 08/15/16 18:39 Aerobic Blood Culture Received Blood Peripheral Pending 08/15/16 18:39 Anaerobic Blood Culture Received Blood Peripheral Pending Result Diagram: 08/16/16 0553 08/16/[address] Angiography 08/15/16 1911 Signed Impressions: Service Date/Time: Monday, August 15, 2016 20:53 - CONCLUSION: 1. Small left pleural effusion with rounded area consolidation involving the left lower lobe. This consolidation could relate to rounded atelectasis or developing infiltrate. I cannot completely exclude a malignancy although this is felt less likely. Followup studies to document resolution suggested. 2. No pulmonary embolus. Buzz Pena Jr., MD Chest X-Ray 08/15/16 [id number] Signed Impressions: Service Date/Time: Monday, August 15, 2016 17:47 - CONCLUSION: Left lower lobe infiltrate. Buzz Pena Jr., MD Septic Shock Reassessment Heart: Regular rate and rhythm Lungs: Clear Skin: Warm, Moist Peripheral Pulses: Bounding Right Radial Bounding Left Radial Capillary Refill: Brisk, <2 seconds Assessment and Plan Problem List: (1) Sepsis ICD Code: A41.9 Status: Resolved Plan: Patient met criteria on admission with tachycardia, leukocytosis, pneumonia. However does have resolved at this time Blood cultures are pending Patient started empirically on vancomycin, cefepime We'll need to obtain sputum culture (2) Pneumonia ICD Code: J18.9 Status: Acute Plan: Patient presented with left-sided pleuritic chest pain Chest x-ray and CT scan indicate infiltrate in the left lower lung Discuss with radiologist who indicates that it is a parenchymal infiltrate. No indication of loculated effusion, empyema Antibiotics as above Oxycodone for pain control (3) IV drug abuse ICD Code: F19.10 Status: Acute Plan: Patient counseled extensively on cessation of polysubstance abuse, IV drug use (4) Bipolar disorder with moderate depression ICD Code: F31.32 Status: Chronic Plan: Home medications have been continued Assessment and Plan This note was transcribed by brien Patrick. I, Dr. Pablo Carbone personally performed the history, physical exam, and medical decision making; and confirmed the accuracy of the information in the transcribed note. Authenticated by Dr. Pablo Carbone on 08/16/16 at 08:28. Code Status Full code Discussed Condition With Patient Physician Certification 2 Midnight Certification Type: Admission for Inpatient Services Order for Inpatient Services The services are ordered in accordance with Medicare regulations or non- Medicare payer requirements, as applicable. In the case of services not specified as inpatient-only, they are appropriately provided as inpatient services in accordance with the 2-midnight benchmark. Estimated LOS (days): 2 days is the estimated time the patient will need to remain in the hospital, assuming treatment plan goals are met and no additional complications. Post-Hospital Plan: Not yet determined Problem Qualifiers (1) Sepsis: Qualified Code: A41.9 - Sepsis, due to unspecified organism (2) Pneumonia: Qualified Code: J18.1 - Pneumonia of left lower lobe due to infectious organism Andres Patrick Aug 16, 2016 07:55 Pablo Carbone MD Aug 16, 2016 08:09
[2016-08-16] MEDS ORDERED: VANCOMYCIN 1,000 MG/NS 250 ML IV SCH ×2 (08:00)
[2016-08-16] MEDS ORDERED: KETOROLAC TROMETHAMINE 60 MG/2 ML (IM) VIAL IM PRN (08:45)
[2016-08-16] MEDS ORDERED: clonazePAM 1 MG TAB PO SCH (09:00)
[2016-08-16] MEDS: GABAPENTIN 300 MG CAP PO SCH (09:00)
[2016-08-16] MEDS ORDERED: CEFEPIME INJ 1,000 MG in SODIUM CHLORIDE 0.9% INJ 100 ML IV SCH (09:00)
[2016-08-16] MEDS: DOCUSATE SODIUM 50 MG/SENNA 8.6 MG TAB PO SCH (09:00)
[2016-08-16] MEDS ORDERED: guaiFENesin/DEXTROMETHORPHAN 200 MG/20 MG/10 ML CUP PO PRN (09:15)
[2016-08-16] MEDS ORDERED: NICOTINE 21 MG/24 HR PATCH T-DERMAL SCH (10:30)
--- NOTE | 2016-08-16 11:57 | EKG ---
Date Performed: 08/15/2016 Time Performed: 17:41:50 PTAGE: 46 years EKG: Sinus rhythm POSSIBLE LEFT ATRIAL ENLARGEMENT NONSPECIFIC T-WAVE ABNORMALITY Compared to previous tracing, nonspe cific ST-T changes are more prominant. BORDERLINE ECG PREVIOUS TRACING : 09/26/2015 [id number] DOCTOR: Mohsen Richardson Interpretating Date/Time 08/16/2016 11:54:46
[2016-08-16] MEDS: clonazePAM 1 MG TAB PO SCH ×2 (12:36→18:05)
[2016-08-17] MEDS ORDERED: VANCOMYCIN TROUGH ONE (07:45)
[2016-08-17] MEDS ORDERED: REMOVE OLD PATCH T-DERMAL SCH (09:00)
== END 2016-08-16 18:48 | disposition left against medical advice (07) | DRG 871 ==
LOC: PHED 17:13 → PHEDA 20:20 → PH3A 22:15
PROVIDERS: ADMIT Hospitalist; ATTEND Hospitalist
DX: A41.9 Sepsis, unspecified organism (principal); J18.9 Pneumonia, unspecified organism; K51.90 Ulcerative colitis, unspecified, without complications; J44.0 Chronic obstructive pulmonary disease with (acute) lower respiratory infection; F17.210 Nicotine dependence, cigarettes, uncomplicated; F31.9 Bipolar disorder, unspecified; M51.36 Other intervertebral disc degeneration, lumbar region; F11.10 Opioid abuse, uncomplicated; F12.90 Cannabis use, unspecified, uncomplicated
CPT/HCPCS: 71020; 71275; 76937; 80048; 80053; 83605; 84484; 85025; 85379; 87040; 93005; 94150; 96365; 96367; 96375; J0456; J0692; J0696; J1885; J3370; J7030; J7050; Q9967

== ENCOUNTER 2016-10-16 21:14 | Emergency (ER) | payer SELFPAY ==
[~2016-10-16] VITALS: Ht 162.6 cm; Wt 70.0 kg
[~2016-10-16 21:14] MED LIST changes: -CEPH-460 PO; -CLON0.2T PO
--- NOTE | 2016-10-16 21:27 | PD ---
HPI Chief Complaint: Abdominal Pain Time Seen by Provider: 21:19 Travel History International Travel<30 days: No Contact w/Intl Traveler<30days: No Traveled to known affect area: No History of Present Illness HPI This 46-year-old female is complaining of nausea and vomiting for several days. She is having some right upper quadrant pain she has a history of hepatitis C and substance abuse. She is not aware of any history of gallbladder disease. She has had kidney stones in the past. She has been having vaginal discharge. He has a history of tubal ligation PFS Past Medical History Arthritis: No Asthma: Yes Autoimmune Disease: No Bipolar Disorder: Yes Anxiety: Yes Depression: Yes Heart Rhythm Problems: Yes (PALPITATIONS) Cancer: Yes (CERVICAL, needs surgery yet) Cardiac Catheterization: No Cardiovascular Problems: Yes ([place], [place]) High Cholesterol: No Congestive Heart Failure: No COPD: Yes Cerebrovascular Accident: Yes (STROKE AND SEIZURES) Diabetes: No Diminished Hearing: No Endocrine: No Gastrointestinal Disorders: Yes (COLITIS) GERD: Yes Genitourinary: No Headaches: Yes Hiatal Hernia: No Heparin Induced Thrombocytopen: No Herniated Disk: Yes Hypertension: Yes (during stress or pain only) Immune Disorder: No Implanted Vascular Access Dvce: No Insomnia: Yes Kidney Stones: No Musculoskeletal: Yes (CHRONIC BACK PAIN) Neurologic: Yes (BRAIN INJURY) Psychiatric: Yes Reproductive: Yes Respiratory: Yes (COPD) Immunizations Current: Yes Migraines: Yes Myocardial Infarction: Yes (2011) Renal Failure: No Seizures: Yes (WITHDRAW) Sickle Cell Disease: No Sleep Apnea: No Thyroid Disease: No Ulcer: Yes PNEUMOCCOCAL Vaccine (Year): 2 Menopausal: No : 10 Para: 6 Miscarriage: 3 : 1 Ectopic : Yes (1994) Ovarian Cysts: Yes Dilation and Curettage (D&C): Yes Tubal Ligation: Yes Past Surgical History Abdominal Surgery: Yes (appendectomy ) AICD: No Appendectomy: Yes Arteriovenous Shunt: No Cardiac Surgery: No Coronary Artery Bypass Graft: No Ear Surgery: No Endocrine Surgery: No Eye Surgery: No Genitourinary Surgery: No Gynecologic Surgery: Yes (ectopic prenancy removed) Insulin Pump: No Joint Replacement: No Neurologic Surgery: Yes (HERNIATED LUMBAR DISCS ) Oral Surgery: No Pacemaker: No Thoracic Surgery: No Other Surgery: Yes (LEFT HAND SURGERY, left foot ) Social History Alcohol Use: No Tobacco Use: Yes (6 cigs day) Substance Use: Yes Allergies-Medications (Allergen,Severity, Reaction): Coded Allergies: Sulfa (Sulfonamide Antibiotics) (Unverified Allergy, Severe, Rash, 10/16/16 ) *MDRO Multi-Drug Resistant Organism (Verified Adverse Reaction, Unknown, Cleared, 10/16/16) 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 Cleared per Infection Control: MRSA PCR negative - 01/01/2015 & 09/27/2015 magnesium (Unverified Adverse Reaction, Unknown, PRUITIC RASH, 10/16/16) magnesium sulfate (Unverified Adverse Reaction, Unknown, PRUITIC RASH, ) prochlorperazine (Unverified Adverse Reaction, Unknown, ANGINA, 10/16/16) terbutaline (Unverified Adverse Reaction, Unknown, HEART RATE ELEVATES, ) Reported Meds & Prescriptions Reported Meds & Active Scripts Active Gabapentin 600 Mg Tab 1,200 Mg PO BID Reported Klonopin (Clonazepam) 2 Mg Tab 1 Mg PO TID Seroquel (Quetiapine Fumarate) 200 Mg Tab 200 Mg PO HS Vistaril (Hydroxyzine Pamoate) 50 Mg Cap 100 Mg PO BID Review of Systems General / Constitutional: No: Fever, Chills Eyes: No: Diploplia, Blurred Vision HENT: No: Headaches, Vertigo Cardiovascular: No: Chest Pain or Discomfort, Palpitations Respiratory: No: Cough Gastrointestinal: Positive: Nausea, Vomiting, Abdominal Pain, No: Diarrhea, Hematemesis Genitourinary: Positive: Pelvic Pain, Discharge, No: Urgency, Frequency Skin: No Rash, No Itching Endocrine: No: Heat Intolerance Hematologic/Lymphatic: No: Easy Bruising Physical Exam Narrative GENERAL: Well-developed female SKIN: Focused skin assessment warm/dry. HEAD: Atraumatic. Normocephalic. EYES: Pupils equal and round. No scleral icterus. No injection or drainage. ENT: No nasal bleeding or discharge. Mucous membranes pink and moist. NECK: Trachea midline. No JVD. CARDIOVASCULAR: Regular rate and rhythm. No murmur appreciated. RESPIRATORY: No accessory muscle use. Clear to auscultation. Breath sounds equal bilaterally. GASTROINTESTINAL: Abdomen soft, there is right upper quadrant and pelvic tenderness nondistended. Hepatic and splenic margins not palpable. : There is a fleshy mass coming from the cervix which she has had for some time. There is a yellowish vaginal discharge. There is pain with movement of the cervix and bilateral adnexal tenderness MUSCULOSKELETAL: No obvious deformities. No clubbing. No cyanosis. No edema. NEUROLOGICAL: Awake and alert. No obvious cranial nerve deficits. Motor grossly within normal limits. Normal speech. PSYCHIATRIC: Appropriate mood and affect; insight and judgment normal. Data Data Last Documented VS Vital Signs Date Time Temp Pulse Resp B/P (MAP) Pulse Ox O2 Delivery O2 Flow Rate FiO2 10/16/16 21:29 98.7 86 18 141/85 (103) 96 Orders Orders Complete Blood Count With Diff (10/16/16 21:23) Comprehensive Metabolic Panel (10/16/16 21:23) Lipase (10/16/16 21:23) Urinalysis - C+S If Indicated (10/16/16 21:23) Us Abdomen Gallbladder (10/16/16 21:23) Sodium Chlor 0.9% 1000 Ml Inj (Ns 1000 M (10/16/16 21:30) Sodium Chlor 0.9% 1000 Ml Inj (Ns 1000 M (10/16/16 21:30) Ondansetron Inj (Zofran Inj) (10/16/16 21:30) Hydromorphone Pf Inj (Dilaudid Pf Inj) (10/16/16 21:30) Ceftriaxone Inj (Rocephin Inj) (10/16/16 22:30) Ketorolac Inj (Toradol Inj) (10/16/16 22:30) Metoclopramide Inj (Reglan Inj) (10/16/16 22:30) Labs Laboratory Tests Test 10/16/16 21:48 White Blood Count 11.1 TH/MM3 Red Blood Count 4.19 MIL/MM3 Hemoglobin 10.7 GM/DL Hematocrit 32.5 % Mean Corpuscular Volume 77.6 FL Mean Corpuscular Hemoglobin 25.5 PG Mean Corpuscular Hemoglobin Concent 32.8 % Red Cell Distribution Width 15.8 % Platelet Count 232 TH/MM3 Mean Platelet Volume 9.4 FL Neutrophils (%) (Auto) 81.0 % Lymphocytes (%) (Auto) 10.1 % Monocytes (%) (Auto) 7.1 % Eosinophils (%) (Auto) 1.5 % Basophils (%) (Auto) 0.3 % Neutrophils # (Auto) 9.0 TH/MM3 Lymphocytes # (Auto) 1.1 TH/MM3 Monocytes # (Auto) 0.8 TH/MM3 Eosinophils # (Auto) 0.2 TH/MM3 Basophils # (Auto) 0.0 TH/MM3 CBC Comment DIFF FINAL Differential Comment Urine Color YELLOW Urine Turbidity MOD Urine pH 8.0 Urine Specific [place] 1.019 Urine Protein NEG mg/dL Urine Glucose (UA) NEG mg/dL Urine Ketones NEG mg/dL Urine Occult Blood NEG Urine Nitrite NEG Urine Bilirubin NEG Urine Leukocyte Esterase NEG Urine WBC 0-2 /hpf Urine Squamous Epithelial Cells > 8 /hpf Urine Amorphous Sediment MOD Microscopic Urinalysis Comment CULT NOT INDICATED Blood Urea Nitrogen 5 MG/DL Creatinine 0.75 MG/DL Random Glucose 125 MG/DL Total Protein 7.6 GM/DL Albumin 3.4 GM/DL Calcium Level 8.0 MG/DL Alkaline Phosphatase 102 U/L Aspartate Amino Transf (AST/SGOT) 25 U/L Alanine Aminotransferase (ALT/SGPT) 27 U/L Total Bilirubin 0.3 MG/DL Sodium Level 136 MEQ/L Potassium Level 3.5 MEQ/L Chloride Level 104 MEQ/L Carbon Dioxide Level 26.9 MEQ/L Anion Gap 5 MEQ/L Estimat Glomerular Filtration Rate 84 ML/MIN Lipase 59 U/L [facility] Medical Decision Making Medical Screen Exam Complete: Yes Emergency Medical Condition: Yes Medical Record Reviewed: Yes Differential Diagnosis Differential includes gastroenteritis, cholecystitis, pelvic inflammatory disease Narrative Course Exam is suggestive of pelvic inflammatory disease. She has been given Rocephin and will be given prescription for doxycycline. Ultrasound shows small amount of gallbladder sludge otherwise negative Diagnosis Primary Impression: Pelvic inflammatory disease Scripts Doxycycline Hyclate (Vibramycin) 100 Mg Cap 100 MG PO BID for Infection for 10 Days, CAP 0 Refills Prov: Aureliano Abdi MD 10/16/16 Disposition: 01 DISCHARGE HOME Condition: Stable Aureliano Abdi MD Oct 16, 2016 21:27
[2016-10-16 21:29] VITALS: BP 141/85; PULSE 86; RESP 18; TEMP 98.7; O2SAT 96
[2016-10-16] MEDS ORDERED: ONDANSETRON HCL 4 MG/2 ML VIAL IV PUSH ONE (21:30)
[2016-10-16] MEDS ORDERED: HYDROmorphone HCL PF 1 MG/ML VIAL IV PUSH ONE (21:30)
[2016-10-16] MEDS ORDERED: SODIUM CHLOR 0.9% 1000 ML INJ 1,000 ML IV ONE ×2 (21:30)
[2016-10-16 22:04] LABS: BASOPHIL % 0.3 % (0.0-2.0); EOSINOPHIL # 0.2 TH/MM3 (0-0.4); EOSINOPHIL % 1.5 % (0.0-4.0); HEMATOCRIT 32.5 % (35.0-46.0); HEMO FLAGS DIFF FINAL; LYMPH % 10.1 % (9.0-44.0); LYMPHOCYTE # 1.1 TH/MM3 (1.0-4.8); MEAN CELL VOLUME 77.6 FL (80.0-100.0); MEAN CORPUSCULAR HEMOGLOBIN 25.5 PG (27.0-34.0); MEAN CORPUSCULAR HGB CONC 32.8 % (32.0-36.0); MONO % 7.1 % (0.0-8.0); PLATELET COUNT 232 TH/MM3 (150-450); RED BLOOD COUNT 4.19 MIL/MM3 (4.00-5.30); RED CELL DISTRIBUTION WIDTH 15.8 % (11.6-17.2); WHITE BLOOD COUNT 11.1 TH/MM3 (4.0-11.0)
[2016-10-16 22:05] LABS: BLOOD, URINE NEG (NEG); GLUCOSE,URINE NEG (NEG); KETONE, URINE NEG (NEG); NITRITE,URINE NEG (NEG)
[2016-10-16 22:11] LABS: URINE COLOR YELLOW (YELLW/STRAW)
[2016-10-16 22:12] LABS: CHLORIDE 104 MEQ/L (98-107); COMMENT (UR) CULT NOT INDICATED; CULTURE IF INDICATED CULT NOT INDICATED; POTASSIUM 3.5 MEQ/L (3.5-5.1); SODIUM (NA) 136 MEQ/L (136-145); SQUAMOUS EPITHELIAL CELL URINE > 8 /hpf (0-5); WBC, URINE 0-2 /hpf (0-5)
--- NOTE | 2016-10-16 22:14 | RADRPT ---
EXAM DATE/TIME: 10/16/2016 21:44 [facility] COMPARISON: CT ABDOMEN & PELVIS W/O CONTRAST, July 20, 2016, 17:03. INDICATIONS : Right upper quadrant pain. MEDICAL HISTORY : Hypertension. Myocardial infarction. Gastroesophageal reflux disease. COPD. MRSA. SURGICAL HISTORY : Appendectomy. ENCOUNTER: Initial ACUITY: 3 days PAIN SCORE: 7/10 LOCATION: Right upper quadrant MEASUREMENTS: LIVER: 20.8 cm length COMMON DUCT: 5 mm RIGHT KIDNEY: 11.6 x 3.9 x 5.6 cm FINDINGS: LIVER: Normal echotexture without focal lesion or ductal dilatation. COMMON DUCT: No intraluminal mass or stone visualized. GALLBLADDER: Contains no stones, demonstrates no wall thickening or pericholecystic fluid. There is minimal gallb ladder sludge. Sonographic Sheridan sign is negative. PANCREAS: The visualized portions are within normal limits. RIGHT KIDNEY: No evidence of hydronephrosis, stone, or mass. CONCLUSION: No abnormality is identified to explain the right upper quadrant pain. There is minimal gallbladder s ludge but gallbladder otherwise demonstrates no abnormality. Bib Villasenor MD on October 16, 2016 at 22:10 Board Certified Radiologist. This report was verified electronically.
[2016-10-16 22:15] LABS: ANION GAP 5 MEQ/L (5-15); BICARBONATE 26.9 MEQ/L (21.0-32.0); BLOOD UREA NITROGEN 5 MG/DL (7-18)
[2016-10-16 22:18] LABS: ALT (GPT) 27 U/L (10-53); AST (GOT) 25 U/L (15-37); GLOMERULAR FILTRATION RATE 84 ML/MIN (>89)
[2016-10-16 22:20] LABS: TOTAL BILIRUBIN ADULT 0.3 MG/DL (0.2-1.0)
[2016-10-16 22:21] LABS: ALKALINE PHOSPHATASE 102 U/L (45-117)
[2016-10-16] MEDS ORDERED: KETOROLAC TROMETHAMINE 30 MG/ML (IVP) VIAL IV PUSH ONE (22:30)
[2016-10-16] MEDS ORDERED: cefTRIAXone INJ 1,000 MG in SODIUM CHLORIDE 0.9% INJ 100 ML IV ONE (22:30)
[2016-10-16] MEDS ORDERED: METOCLOPRAMIDE HCL 10 MG/2 ML VIAL IV PUSH ONE (22:30)
[2016-10-16] MEDS ORDERED: VIBR100C PO (22:38)
[2016-10-16 23:51] VITALS: RESP 18
[2016-10-17 00:10] VITALS: BP 135/71; TEMP 98.7
[2016-10-17 02:38] LABS: CHLAMYDIA PCR NOT DETECTED (NOT DETECT); NEISSERIA PCR NOT DETECTED (NOT DETECT)
[2016-10-18] MEDS ORDERED: HYDR-3535 PO (23:27)
== END 2016-10-17 00:12 | disposition home or self-care (01) ==
LOC: PHED 21:14
DX: N73.9 Female pelvic inflammatory disease, unspecified (principal); B19.20 Unspecified viral hepatitis C without hepatic coma; I10 Essential (primary) hypertension; I25.2 Old myocardial infarction; J44.9 Chronic obstructive pulmonary disease, unspecified; K21.9 Gastro-esophageal reflux disease without esophagitis; R56.9 Unspecified convulsions; Z86.73 Personal history of transient ischemic attack (TIA), and cerebral infarction without residual deficits; Z87.442 Personal history of urinary calculi; Z98.51 Tubal ligation status; F17.210 Nicotine dependence, cigarettes, uncomplicated
CPT/HCPCS: 76705; 80053; 81001; 83690; 85025; 87210; 87491; 87591; 96374; 96375; 99285; J0696; J1170; J1885; J2405; J2765; J7030

== ENCOUNTER 2016-10-18 20:51 | Emergency (ER) | payer SELFPAY ==
[~2016-10-18] VITALS: Ht 162.6 cm; Wt 68.0 kg
[~2016-10-18 20:51] MED LIST changes: +VIBR100C PO
[2016-10-18] MEDS ORDERED: SODIUM CHLOR 0.9% 1000 ML INJ 1,000 ML IV SCH (21:05)
[2016-10-18 21:07] VITALS: BP 145/99; PULSE 83; RESP 20; TEMP 98.8; O2SAT 95
--- NOTE | 2016-10-18 21:09 | PD ---
HPI Chief Complaint: Flank/Kidney Pain Time Seen by Provider: 20:59 Travel History International Travel<30 days: No Contact w/Intl Traveler<30days: No Traveled to known affect area: No History of Present Illness HPI 46-year-old female with history of bipolar disorder, hepatitis C, substance abuse, brought in by EMS for evaluation of nausea and vomiting as well as abdominal pain. Patient reports that symptoms have been going on for about 5 days. She was seen in the emergency department 2 days ago and had a right upper quadrant gallbladder ultrasound which showed minimal gallbladder sludge, otherwise no acute abnormalities. She was diagnosed with PID and treated for this. She reports ongoing nausea and vomiting as well as right flank pain that radiates to her right lower abdomen. She does have history of IVDU, however states she has been clean for the last 5 months. She has had subjective fevers. No urinary or bowel incontinence or retention. No urinary symptoms. History of appendectomy. No other abdominal surgeries. The patient also states that her symptoms are making her feel anxious and she is a smoker and feels somewhat short of breath. She is requesting a chest x-ray. PFSH Past Medical History Arthritis: No Asthma: Yes Autoimmune Disease: No Bipolar Disorder: Yes Anxiety: Yes Depression: Yes Heart Rhythm Problems: Yes (PALPITATIONS) Cancer: Yes (CERVICAL, needs surgery yet) Cardiac Catheterization: No Cardiovascular Problems: Yes (HT[place], [place]) High Cholesterol: No Congestive Heart Failure: No COPD: Yes Cerebrovascular Accident: Yes (STROKE AND SEIZURES) Diabetes: No Diminished Hearing: No Endocrine: No Gastrointestinal Disorders: Yes (COLITIS) GERD: Yes Genitourinary: No Headaches: Yes Hiatal Hernia: No Heparin Induced Thrombocytopen: No Herniated Disk: Yes Hypertension: Yes (during stress or pain only) Immune Disorder: No Implanted Vascular Access Dvce: No Insomnia: Yes Kidney Stones: No Musculoskeletal: Yes (CHRONIC BACK PAIN) Neurologic: Yes (BRAIN INJURY) Psychiatric: Yes Reproductive: Yes Respiratory: Yes (COPD) Immunizations Current: Yes Migraines: Yes Myocardial Infarction: Yes (2011) Renal Failure: No Seizures: Yes (WITHDRAWL) Sickle Cell Disease: No Sleep Apnea: No Thyroid Disease: No Ulcer: Yes PNEUMOCCOCAL Vaccine (Year): 2 Menopausal: No : 10 Para: 6 Miscarriage: 3 : 1 Ectopic : Yes (1994) Ovarian Cysts: Yes Dilation and Curettage (D&C): Yes Tubal Ligation: Yes Past Surgical History Abdominal Surgery: Yes (appendectomy ) AICD: No Appendectomy: Yes Arteriovenous Shunt: No Cardiac Surgery: No Coronary Artery Bypass Graft: No Ear Surgery: No Endocrine Surgery: No Eye Surgery: No Genitourinary Surgery: No Gynecologic Surgery: Yes (ectopic prenancy removed) Insulin Pump: No Joint Replacement: No Neurologic Surgery: Yes (HERNIATED LUMBAR DISCS ) Oral Surgery: No Pacemaker: No Thoracic Surgery: No Other Surgery: Yes (LEFT HAND SURGERY, left foot ) Social History Alcohol Use: No Tobacco Use: Yes (1/2 PPD) Substance Use: Yes Allergies-Medications (Allergen,Severity, Reaction): Coded Allergies: Sulfa (Sulfonamide Antibiotics) (Unverified Allergy, Severe, Rash, 10/18/16 ) *MDRO Multi-Drug Resistant Organism (Verified Adverse Reaction, Unknown, Cleared, 10/18/16) 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 Cleared per Infection Control: MRSA PCR negative - 01/01/2015 & 09/27/2015 magnesium (Unverified Adverse Reaction, Unknown, PRUITIC RASH, 10/18/16) magnesium sulfate (Unverified Adverse Reaction, Unknown, PRUITIC RASH, ) prochlorperazine (Unverified Adverse Reaction, Unknown, ANGINA, 10/18/16) terbutaline (Unverified Adverse Reaction, Unknown, HEART RATE ELEVATES, ) Reported Meds & Prescriptions Reported Meds & Active Scripts Active Vibramycin (Doxycycline Hyclate) 100 Mg Cap 100 Mg PO BID 10 Days Gabapentin 600 Mg Tab 1,200 Mg PO BID Reported Klonopin (Clonazepam) 2 Mg Tab 1 Mg PO TID Seroquel (Quetiapine Fumarate) 200 Mg Tab 200 Mg PO HS Vistaril (Hydroxyzine Pamoate) 50 Mg Cap 100 Mg PO BID Review of Systems Except as stated in HPI: all other systems reviewed are Neg Physical Exam Narrative GENERAL: Well-developed, well-nourished, crying SKIN: Focused skin assessment warm/dry. No rash. HEAD: Atraumatic. Normocephalic. EYES: Pupils equal and round. No scleral icterus. No injection or drainage. ENT: Mucous membranes pink and moist. Edentulous. NECK: Trachea midline. No JVD. CARDIOVASCULAR: Regular rate and rhythm. RESPIRATORY: No accessory muscle use. Clear to auscultation. Breath sounds equal bilaterally. GASTROINTESTINAL: Abdomen soft, nondistended. Hepatic and splenic margins not palpable. MUSCULOSKELETAL: No obvious deformities. No clubbing. No cyanosis. No edema. No midline vertebral step-off or tenderness. Moderate bilateral flank/CVA tenderness. NEUROLOGICAL: Awake and alert. No obvious cranial nerve deficits. Motor grossly within normal limits. Normal speech. No focal deficits. No saddle anesthesia. PSYCHIATRIC: Appropriate mood and affect; insight and judgment normal. Data Data Last Documented VS Vital Signs Date Time Temp Pulse Resp B/P (MAP) Pulse Ox O2 Delivery O2 Flow Rate FiO2 10/18/16 22:04 18 10/18/16 21:18 95 Room Air 10/18/16 21:07 98.8 83 145/99 (114) Orders Orders Beta Hcg (Quant/Titer) (10/18/16 21:05) Complete Blood Count With Diff (10/18/16 21:05) Comprehensive Metabolic Panel (10/18/16 21:05) Lipase (10/18/16 21:05) Prothrombin Time / Inr (Pt) (10/18/16 21:05) Act Partial Throm Time (Ptt) (10/18/16 21:05) Urinalysis - C+S If Indicated (10/18/16 21:05) Ct Abd/Pel W Iv Contrast(Rout) (10/18/16 21:05) Iv Access Insert/Monitor (10/18/16 21:05) Ecg Monitoring (10/18/16 21:05) Oximetry (10/18/16 21:05) Hydromorphone Pf Inj (Dilaudid Pf Inj) (10/18/16 21:15) Ondansetron Inj (Zofran Inj) (10/18/16 21:15) Sodium Chlor 0.9% 1000 Ml Inj (Ns 1000 M (10/18/16 21:05) Sodium Chloride 0.9% Flush (Ns Flush) (10/18/16 21:15) Westergren Sedimentation Rate (10/18/16 21:09) C-Reactive Protein (Crp) (10/18/16 21:09) Chest, Single Ap (10/18/16 ) Iohexol 350 Inj (Omnipaque 350 Inj) (10/18/16 22:30) Ketorolac Inj (Toradol Inj) (10/18/16 22:45) Labs Laboratory Tests Test 10/18/16 21:13 10/18/16 21:38 White Blood Count 7.3 TH/MM3 Red Blood Count 3.91 MIL/MM3 Hemoglobin 9.5 GM/DL Hematocrit 30.4 % Mean Corpuscular Volume 77.6 FL Mean Corpuscular Hemoglobin 24.3 PG Mean Corpuscular Hemoglobin Concent 31.3 % Red Cell Distribution Width 15.9 % Platelet Count 259 TH/MM3 Mean Platelet Volume 9.0 FL Neutrophils (%) (Auto) 58.0 % Lymphocytes (%) (Auto) 31.1 % Monocytes (%) (Auto) 7.7 % Eosinophils (%) (Auto) 2.4 % Basophils (%) (Auto) 0.8 % Neutrophils # (Auto) 4.1 TH/MM3 Lymphocytes # (Auto) 2.3 TH/MM3 Monocytes # (Auto) 0.6 TH/MM3 Eosinophils # (Auto) 0.2 TH/MM3 Basophils # (Auto) 0.1 TH/MM3 CBC Comment AUTO DIFF Differential Comment AUTO DIFF CONFIRMED Platelet Estimate NORMAL Platelet Morphology Comment NORMAL Erythrocyte Sedimentation Rate 1 mm/hr Prothrombin Time 11.5 SEC Prothromb Time International Ratio 1.0 RATIO Activated Partial Thromboplast Time 30.3 SEC Blood Urea Nitrogen 6 MG/DL Creatinine 0.72 MG/DL Random Glucose 97 MG/DL Total Protein 7.2 GM/DL Albumin 3.2 GM/DL Calcium Level 7.9 MG/DL Alkaline Phosphatase 93 U/L Aspartate Amino Transf (AST/SGOT) 25 U/L Alanine Aminotransferase (ALT/SGPT) 22 U/L Total Bilirubin 0.3 MG/DL Sodium Level 138 MEQ/L Potassium Level 3.2 MEQ/L Chloride Level 105 MEQ/L Carbon Dioxide Level 25.6 MEQ/L Anion Gap 7 MEQ/L Estimat Glomerular Filtration Rate 88 ML/MIN C-Reactive Protein 1.00 MG/DL Lipase 50 U/L Human Chorionic Gonadotropin, Quant LESS THAN 1 MIU/ML Urine Color YELLOW Urine Turbidity SLIGHT Urine pH 6.0 Urine Specific Drifting 1.010 Urine Protein NEG mg/dL Urine Glucose (UA) NEG mg/dL Urine Ketones NEG mg/dL Urine Occult Blood NEG Urine Nitrite NEG Urine Bilirubin NEG Urine Leukocyte Esterase MOD Urine RBC 0-3 /hpf Urine WBC 3-5 /hpf Urine Squamous Epithelial Cells 6-8 /hpf Urine Bacteria OCC /hpf Urine Mucus OCC /lpf Microscopic Urinalysis Comment CULT NOT INDICATED MDM Medical Decision Making Medical Screen Exam Complete: Yes Emergency Medical Condition: Yes Medical Record Reviewed: Yes Differential Diagnosis Pyelonephritis, nephrolithiasis, hepatitis, diverticulitis, colitis, dehydration , epidural abscess/discitis less likely. Narrative Course Initial vital signs show heart rate 83, blood pressure 145/99, pulse ox 95% on room air, oral temp of 98.8F. CBC is remarkable for hemoglobin 9.5, hematocrit 30.4 which is around her baseline, MCV 77.6. 30 BC 7.3, platelets 259. CMP is remarkable for potassium 3.2, otherwise unremarkable. Lipase is 50. ESR is 1. CRP HCG is negative. UA is contaminated with squamous epithelial cells and not suggestive of UTI. Chest x-ray: Cardiomegaly. No acute focal pulmonary infiltrate or pulmonary vascular congestion. CT abdomen pelvis: CONCLUSION: 1. Enlarged fibroid uterus. 2. 4.2 x 3.3 cm right adnexal cystic mass which is relatively stable in appearance compared to the previous examination in November 2015. 3. Multiple calcified nonobstructing left renal calculi with the largest measuring 4 mm. 4. Hepatosplenomegaly. 5. Degenerative changes and scoliosis of the thoracolumbar spine. 6. Scattered fibrotic scarring and/or atelectasis within the lung bases. Patient was made aware of all findings and provided a copy of her CT abdomen pelvis report. On reassessment she is sleeping comfortably. She has asked for pain medication multiple times while in the emergency department. Her pain is mainly in her right flank region. She has been seen in the emergency department for similar type pains in the past. There is no midline vertebral step-off or tenderness. No neurologic findings. Her ESR is 1. WBC count is normal. She is afebrile. I do not believe she has an epidural abscess or discitis to warrant MRI at this time. At this point patient is stable for discharge home with outpatient follow-up with a primary care physician this week. She was informed on when to return to the emergency department. She verbalizes understanding and agreement with plan. Diagnosis Primary Impression: Flank pain Referrals: [facility] 3 days Primary Care Physician 3 days Additional Instructions: Follow-up with a primary care physician this week. Return to the emergency department for worsening symptoms or any other concerns. Scripts Hydrocodone-Acetaminophen (Lortab) 10-325 Mg Tab 1 TAB PO Q6H Y for PAIN, #10 TAB 0 Refills Prov: Dylon Gil MD 10/18/16 Disposition: 01 DISCHARGE HOME Condition: Stable Dylon Gil MD Oct 18, 2016 21:09
[2016-10-18] MEDS ORDERED: HYDROmorphone HCL PF 2 MG/ML VIAL IVS ONE (21:15)
[2016-10-18] MEDS ORDERED: SODIUM CHLORIDE 0.9% FLUSH 10 ML FLUSH IV FLUSH PRN (21:15)
[2016-10-18] MEDS ORDERED: ONDANSETRON HCL 4 MG/2 ML VIAL IVP ONE (21:15)
[2016-10-18 21:18] VITALS: RESP 20; O2SAT 95
[2016-10-18 21:20] LABS: AUTOMATED NEUTROPHIL # 4.1 TH/MM3 (1.8-7.7); BASOPHIL # 0.1 TH/MM3 (0-0.2); BASOPHIL % 0.8 % (0.0-2.0); EOSINOPHIL # 0.2 TH/MM3 (0-0.4); EOSINOPHIL % 2.4 % (0.0-4.0); HEMATOCRIT 30.4 % (35.0-46.0); LYMPH % 31.1 % (9.0-44.0); LYMPHOCYTE # 2.3 TH/MM3 (1.0-4.8); MEAN CELL VOLUME 77.6 FL (80.0-100.0); MEAN CORPUSCULAR HEMOGLOBIN 24.3 PG (27.0-34.0); MEAN CORPUSCULAR HGB CONC 31.3 % (32.0-36.0); MONO % 7.7 % (0.0-8.0); PLATELET COUNT 259 TH/MM3 (150-450); RED BLOOD COUNT 3.91 MIL/MM3 (4.00-5.30); RED CELL DISTRIBUTION WIDTH 15.9 % (11.6-17.2); WHITE BLOOD COUNT 7.3 TH/MM3 (4.0-11.0)
[2016-10-18 21:30] LABS: CHLORIDE 105 MEQ/L (98-107); POTASSIUM 3.2 MEQ/L (3.5-5.1); SODIUM (NA) 138 MEQ/L (136-145)
[2016-10-18 21:34] LABS: ANION GAP 7 MEQ/L (5-15); BICARBONATE 25.6 MEQ/L (21.0-32.0); BLOOD UREA NITROGEN 6 MG/DL (7-18)
[2016-10-18 21:35] LABS: APTT (PATIENT) 30.3 SEC (24.3-30.1); PROTHROMBIN TIME - PATIENT 11.5 SEC (9.8-11.6)
[2016-10-18 21:37] LABS: ALT (GPT) 22 U/L (10-53); AST (GOT) 25 U/L (15-37); GLOMERULAR FILTRATION RATE 88 ML/MIN (>89)
[2016-10-18 21:38] LABS: TOTAL BILIRUBIN ADULT 0.3 MG/DL (0.2-1.0)
[2016-10-18 21:40] LABS: ALKALINE PHOSPHATASE 93 U/L (45-117)
[2016-10-18 21:42] LABS: BETA HCG QUANT LESS THAN 1 MIU/ML (0-5)
[2016-10-18 21:49] LABS: BLOOD, URINE NEG (NEG); GLUCOSE,URINE NEG (NEG); KETONE, URINE NEG (NEG); NITRITE,URINE NEG (NEG)
--- NOTE | 2016-10-18 21:49 | RADRPT ---
EXAM DATE/TIME: 10/18/2016 21:27 [facility] COMPARISON: CHEST SINGLE AP, July 16, 2016, 17:58. INDICATIONS : Short of breath. MEDICAL HISTORY : Cerebrovascular disease. Hypertension. Myocardial infarction. COPD. SURGICAL HISTORY : Appendectomy. Cholecystectomy ENCOUNTER: Initial ACUITY: 4 - 6 days PAIN SCORE: 10/10 LOCATION: Bilateral chest FINDINGS: The heart is enlarged. The pulmonary vascular pattern is normal. The lungs are clear. CONCLUSION: 1. Cardiomegaly. 2. No acute focal pulmonary infiltrate or pulmonary vascular congestion. Nima Rivera MD on October 18, 2016 at 21:45 Board Certified Radiologist. This report was verified electronically.
[2016-10-18 21:54] LABS: URINE COLOR YELLOW (YELLW/STRAW)
[2016-10-18 21:56] LABS: MUCUS URINE OCC /lpf (OCC)
[2016-10-18 21:59] LABS: BACTERIA, URINE OCC /hpf; RBC, URINE 0-3 /hpf (0-3)
[2016-10-18 22:01] LABS: COMMENT (UR) CULT NOT INDICATED; CULTURE IF INDICATED CULT NOT INDICATED
[2016-10-18 22:06] LABS: HEMO FLAGS AUTO DIFF
[2016-10-18 22:07] LABS: PLATELET ESTIMATE SMEAR NORMAL (NORMAL); PLATELET MORPHOLOGY NORMAL (NORMAL); SCAN/DIFF AUTO DIFF CONFIRMED
[2016-10-18] MEDS ORDERED: IOHEXOL 350 MG/ML 10 ML VIAL (for RAD DIAG) IVCONTRAST ONE (22:30)
[2016-10-18] MEDS ORDERED: KETOROLAC TROMETHAMINE 30 MG/ML (IVP) VIAL IV PUSH ONE (22:45)
--- NOTE | 2016-10-18 23:12 | RADRPT ---
EXAM DATE/TIME: 10/18/2016 22:20 [facility] COMPARISON: CT ABDOMEN & PELVIS W CONTRAST, November 25, 2015, 14:23. INDICATIONS : Right flank pain, nausea and vomiting for 5 days. IV CONTRAST: 96 cc Omnipaque 350 (iohexol) IV ORAL CONTRAST: No oral contrast ingested. RADIATION DOSE: 8.89 CTDIvol (mGy) MEDICAL HISTORY : Renal calculi. Gastroesophageal reflux disease. Hypertension. SURGICAL HISTORY : Tubal ligation. ENCOUNTER: Initial ACUITY: 4 - 6 days PAIN SCALE: 10/10 LOCATION: Right flank TECHNIQUE: Volumetric scanning of the abdomen and pelvis was performed. Using automated exposure control and ad justment of the mA and/or kV according to patient size, radiation dose was kept as low as reasonably achievable to obtain optimal diagnostic quality images. DICOM format image data is available electro nically for review and comparison. FINDINGS: Hepatosplenomegaly is noted. No focal hepatic or splenic mass is noted. No biliary ductal dilatatio n is noted. The gallbladder is unremarkable. The pancreas is normal. The adrenal glands are unrema rkable. There are multiple calcified nonobstructing left renal calculi. The largest calculus on the left measures 4 mm. No hydronephrosis or solid renal mass is noted. The abdominal aorta and inferi or vena cava are unremarkable. There is no paraaortic, retroperitoneal or mesenteric lymphadenopathy . No ascites is noted. No bowel obstruction is noted. The uterus remains enlarged and contains fib roids. There is a 4.2 x 3.3 cm right adnexal cystic lesion. This is stable in appearance compared t o the previous examination in November 2015. No pelvic lymphadenopathy is noted. The urinary bladder is unremarkable. Nabothian cysts are noted in the region of the cervix. Scattered atelectasis and/ or scarring is noted within the lung bases. Degenerative changes and scoliosis of the thoracolumbar spine are noted. CONCLUSION: 1. Enlarged fibroid uterus. 2. 4.2 x 3.3 cm right adnexal cystic mass which is relatively stable in appearance compared to the p revious examination in November 2015. 3. Multiple calcified nonobstructing left renal calculi with the largest measuring 4 mm. 4. Hepatosplenomegaly. 5. Degenerative changes and scoliosis of the thoracolumbar spine. 6. Scattered fibrotic scarring and/or atelectasis within the lung bases. Nima Rivera MD on October 18, 2016 at 22:59 Board Certified Radiologist. This report was verified electronically.
[2016-10-18] MEDS ORDERED: HYDR-3535 PO (23:27)
[2016-10-18] MEDS ORDERED: ACETAMINOPHEN/HYDROcodone 325 MG/10 MG TAB PO ONE (23:30)
[2016-10-18 23:32] VITALS: RESP 18
[2016-10-19] VITALS: BP 138/83; TEMP 98.6
== END 2016-10-19 00:03 | disposition home or self-care (01) ==
LOC: PHED 20:51
DX: R10.9 Unspecified abdominal pain (principal); R11.2 Nausea with vomiting, unspecified; F17.210 Nicotine dependence, cigarettes, uncomplicated; F31.9 Bipolar disorder, unspecified; F41.9 Anxiety disorder, unspecified; D25.9 Leiomyoma of uterus, unspecified; N20.0 Calculus of kidney; R16.2 Hepatomegaly with splenomegaly, not elsewhere classified
CPT/HCPCS: 71010; 74177; 80053; 81001; 83690; 84702; 85025; 85610; 85652; 85730; 86140; 96374; 96375; 99285; J1170; J1885; J2405; J7030; Q9967

== ENCOUNTER 2016-10-20 14:04 | Emergency (ER) | payer SELFPAY ==
[~2016-10-20 14:04] MED LIST changes: +HYDR-3535 PO
[2016-10-20 14:12] VITALS: BP 181/96; PULSE 64; RESP 18; TEMP 98.7; O2SAT 98
[2016-10-20] MEDS ORDERED: ONDANSETRON HCL 4 MG/2 ML VIAL IV PUSH ONE (14:30)
[2016-10-20] MEDS ORDERED: SODIUM CHLOR 0.9% 1000 ML INJ 1,000 ML IV ONE (14:30)
[2016-10-20] MEDS ORDERED: LORazepam 2 MG/ML VIAL IV PUSH ONE (14:45)
[2016-10-20 14:48] LABS: AUTOMATED NEUTROPHIL # 5.2 TH/MM3 (1.8-7.7); BASOPHIL # 0.1 TH/MM3 (0-0.2); BASOPHIL % 0.8 % (0.0-2.0); EOSINOPHIL # 0.1 TH/MM3 (0-0.4); EOSINOPHIL % 1.5 % (0.0-4.0); HEMATOCRIT 33.4 % (35.0-46.0); LYMPH % 23.4 % (9.0-44.0); LYMPHOCYTE # 1.8 TH/MM3 (1.0-4.8); MEAN CELL VOLUME 77.5 FL (80.0-100.0); MONO % 5.1 % (0.0-8.0); NEUT % 69.2 % (16.0-70.0); PLATELET COUNT 311 TH/MM3 (150-450); RED BLOOD COUNT 4.31 MIL/MM3 (4.00-5.30); WHITE BLOOD COUNT 7.6 TH/MM3 (4.0-11.0)
[2016-10-20 15:06] LABS: HEMO FLAGS AUTO DIFF
[2016-10-20 15:07] LABS: CHLORIDE 107 MEQ/L (98-107); POTASSIUM 3.7 MEQ/L (3.5-5.1); SODIUM (NA) 139 MEQ/L (136-145)
[2016-10-20 15:10] LABS: ANION GAP 6 MEQ/L (5-15); BICARBONATE 25.6 MEQ/L (21.0-32.0); BLOOD UREA NITROGEN 5 MG/DL (7-18)
[2016-10-20 15:13] LABS: ALT (GPT) 23 U/L (10-53); AST (GOT) 24 U/L (15-37)
[2016-10-20 15:14] LABS: GLOMERULAR FILTRATION RATE 75 ML/MIN (>89)
[2016-10-20 15:15] LABS: TOTAL BILIRUBIN ADULT 0.3 MG/DL (0.2-1.0)
[2016-10-20 15:16] LABS: ALKALINE PHOSPHATASE 99 U/L (45-117)
--- NOTE | 2016-10-20 15:24 | PD ---
HPI Chief Complaint: GI Complaint Time Seen by Provider: 14:15 Travel History International Travel<30 days: No Contact w/Intl Traveler<30days: No Traveled to known affect area: No History of Present Illness HPI This 46-year-old female is complaining of some right flank pain. His been in the ER several times last few days for various pains. I saw her a few days ago and thought at that time that she was having pelvic inflammatory disease and she was put on antibiotics. He returned couple of days later with some flank pain. Her urine was negative and a CT scan was also negative. She is back now saying she is having the same pain in his head intermittent vomiting. She does have a history of polysubstance abuse and has been admitted for infections related to IV injection in the past. She denies recent injections. She was given prescription for Lortab couple days ago. PFSH Past Medical History Arthritis: No Asthma: Yes Autoimmune Disease: No Bipolar Disorder: Yes Anxiety: Yes Depression: Yes Heart Rhythm Problems: Yes (PALPITATIONS) Cancer: Yes (CERVICAL, needs surgery yet) Cardiac Catheterization: No Cardiovascular Problems: Yes ([place]N, [place]) High Cholesterol: No Congestive Heart Failure: No COPD: Yes Cerebrovascular Accident: Yes (STROKE AND SEIZURES) Diabetes: No Diminished Hearing: No Endocrine: No Gastrointestinal Disorders: Yes (COLITIS) GERD: Yes Genitourinary: No Headaches: Yes Hiatal Hernia: No Heparin Induced Thrombocytopen: No Herniated Disk: Yes Hypertension: Yes (during stress or pain only) Immune Disorder: No Implanted Vascular Access Dvce: No Insomnia: Yes Kidney Stones: No Musculoskeletal: Yes (CHRONIC BACK PAIN) Neurologic: Yes (BRAIN INJURY) Psychiatric: Yes Reproductive: Yes Respiratory: Yes (COPD) Immunizations Current: Yes Migraines: Yes Myocardial Infarction: Yes (2011) Renal Failure: No Seizures: Yes (WITHDRAWL) Sickle Cell Disease: No Sleep Apnea: No Thyroid Disease: No Ulcer: Yes PNEUMOCCOCAL Vaccine (Year): 2 ?: Not Menopausal: No : 10 Para: 6 Miscarriage: 3 : 1 Ectopic : Yes (1994) Ovarian Cysts: Yes Dilation and Curettage (D&C): Yes Tubal Ligation: Yes Past Surgical History Abdominal Surgery: Yes (appendectomy ) AICD: No Appendectomy: Yes Arteriovenous Shunt: No Cardiac Surgery: No Coronary Artery Bypass Graft: No Ear Surgery: No Endocrine Surgery: No Eye Surgery: No Genitourinary Surgery: No Gynecologic Surgery: Yes (ectopic prenancy removed) Insulin Pump: No Joint Replacement: No Neurologic Surgery: Yes (HERNIATED LUMBAR DISCS ) Oral Surgery: No Pacemaker: No Thoracic Surgery: No Other Surgery: Yes (LEFT HAND SURGERY, left foot ) Social History Alcohol Use: No Tobacco Use: Yes (1/2 PPD) Substance Use: Yes Allergies-Medications (Allergen,Severity, Reaction): Coded Allergies: Sulfa (Sulfonamide Antibiotics) (Unverified Allergy, Severe, Rash, 10/20/16 ) *MDRO Multi-Drug Resistant Organism (Verified Adverse Reaction, Unknown, Cleared, 10/20/16) 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 Cleared per Infection Control: MRSA PCR negative - 01/01/2015 & 09/27/2015 magnesium (Unverified Adverse Reaction, Unknown, PRUITIC RASH, 10/20/16) magnesium sulfate (Unverified Adverse Reaction, Unknown, PRUITIC RASH, ) prochlorperazine (Unverified Adverse Reaction, Unknown, ANGINA, 10/20/16) terbutaline (Unverified Adverse Reaction, Unknown, HEART RATE ELEVATES, ) Reported Meds & Prescriptions Reported Meds & Active Scripts Active Lortab (Hydrocodone-Acetaminophen) 10-325 Mg Tab 1 Tab PO Q6H PRN Vibramycin (Doxycycline Hyclate) 100 Mg Cap 100 Mg PO BID 10 Days Gabapentin 600 Mg Tab 1,200 Mg PO BID Reported Klonopin (Clonazepam) 2 Mg Tab 1 Mg PO TID Seroquel (Quetiapine Fumarate) 200 Mg Tab 200 Mg PO HS Vistaril (Hydroxyzine Pamoate) 50 Mg Cap 100 Mg PO BID Review of Systems General / Constitutional: No: Fever, Chills Eyes: No: Diploplia HENT: No: Headaches, Vertigo Cardiovascular: No: Chest Pain or Discomfort Respiratory: No: Cough Gastrointestinal: Positive: Nausea, Vomiting, Abdominal Pain Genitourinary: No: Urgency, Frequency Musculoskeletal: No: Myalgias, Arthralgias Skin: No Rash, No Itching Neurologic: No: Weakness, Dizziness Psychiatric: Positive: Anxiety Physical Exam Narrative GENERAL: Well-developed female SKIN: Focused skin assessment warm/dry. HEAD: Atraumatic. Normocephalic. EYES: Pupils equal and round. No scleral icterus. No injection or drainage. ENT: No nasal bleeding or discharge. Mucous membranes pink and moist. NECK: Trachea midline. No JVD. CARDIOVASCULAR: Regular rate and rhythm. No murmur appreciated. RESPIRATORY: No accessory muscle use. Clear to auscultation. Breath sounds equal bilaterally. GASTROINTESTINAL: Abdomen soft, mild diffuse tenderness, nondistended. Hepatic and splenic margins not palpable. MUSCULOSKELETAL: No obvious deformities. No clubbing. No cyanosis. No edema. NEUROLOGICAL: Awake and alert. No obvious cranial nerve deficits. Motor grossly within normal limits. Normal speech. PSYCHIATRIC: Anxious; insight and judgment normal. Data Data Last Documented VS Vital Signs Date Time Temp Pulse Resp B/P (MAP) Pulse Ox O2 Delivery O2 Flow Rate FiO2 10/20/16 14:12 98.7 64 18 181/96 (124) 98 Orders Orders Complete Blood Count With Diff (10/20/16 14:24) Comprehensive Metabolic Panel (10/20/16 14:24) Urinalysis - C+S If Indicated (10/20/16 14:24) Sodium Chlor 0.9% 1000 Ml Inj (Ns 1000 M (10/20/16 14:30) Ondansetron Inj (Zofran Inj) (10/20/16 14:30) Lorazepam Inj (Ativan Inj) (10/20/16 14:45) Labs Laboratory Tests Test 10/20/16 14:30 White Blood Count 7.6 TH/MM3 Red Blood Count 4.31 MIL/MM3 Hemoglobin 10.4 GM/DL Hematocrit 33.4 % Mean Corpuscular Volume 77.5 FL Mean Corpuscular Hemoglobin 24.0 PG Mean Corpuscular Hemoglobin Concent 31.0 % Red Cell Distribution Width 16.0 % Platelet Count 311 TH/MM3 Mean Platelet Volume 10.1 FL Neutrophils (%) (Auto) 69.2 % Lymphocytes (%) (Auto) 23.4 % Monocytes (%) (Auto) 5.1 % Eosinophils (%) (Auto) 1.5 % Basophils (%) (Auto) 0.8 % Neutrophils # (Auto) 5.2 TH/MM3 Lymphocytes # (Auto) 1.8 TH/MM3 Monocytes # (Auto) 0.4 TH/MM3 Eosinophils # (Auto) 0.1 TH/MM3 Basophils # (Auto) 0.1 TH/MM3 CBC Comment AUTO DIFF Blood Urea Nitrogen 5 MG/DL Creatinine 0.83 MG/DL Random Glucose 103 MG/DL Total Protein 7.6 GM/DL Albumin 3.4 GM/DL Calcium Level 8.2 MG/DL Alkaline Phosphatase 99 U/L Aspartate Amino Transf (AST/SGOT) 24 U/L Alanine Aminotransferase (ALT/SGPT) 23 U/L Total Bilirubin 0.3 MG/DL Sodium Level 139 MEQ/L Potassium Level 3.7 MEQ/L Chloride Level 107 MEQ/L Carbon Dioxide Level 25.6 MEQ/L Anion Gap 6 MEQ/L Estimat Glomerular Filtration Rate 75 ML/MIN MDM Medical Decision Making Medical Screen Exam Complete: Yes Emergency Medical Condition: Yes Medical Record Reviewed: Yes Differential Diagnosis Differential includes drug-seeking behavior, nonspecific abdominal pain, anxiety Narrative Course Patient was given Ativan with excellent results. Her CBC is normal. Electrolytes did not suggest any dehydration. He is stable for discharge Diagnosis Primary Impression: Abdominal pain Qualified Codes: R10.9 - Unspecified abdominal pain Disposition: DISCHARGE HOME Condition: Stable Aureliano Abdi MD Oct 20, 2016 15:24
[2016-10-20 15:42] LABS: PLATELET ESTIMATE SMEAR NORMAL (NORMAL); PLATELET MORPHOLOGY NORMAL (NORMAL); SCAN/DIFF AUTO DIFF CONFIRMED
== END 2016-10-20 16:07 | disposition home or self-care (01) ==
LOC: PHED 14:04
DX: R10.9 Unspecified abdominal pain (principal); F17.200 Nicotine dependence, unspecified, uncomplicated
CPT/HCPCS: 80053; 85025; 96374; 96375; 99284; J2060; J2405; J7030

== ENCOUNTER 2016-10-21 22:40 | Emergency (ER) | payer SELFPAY ==
[~2016-10-21] VITALS: Ht 162.6 cm; Wt 71.0 kg
[2016-10-21 22:47] VITALS: BP 193/108; PULSE 70; RESP 16; TEMP 97.6; O2SAT 100
--- NOTE | 2016-10-22 00:03 | PD ---
HPI Chief Complaint: Anxiety Time Seen by Provider: 23:54 Travel History International Travel<30 days: No Contact w/Intl Traveler<30days: No Traveled to known affect area: No History of Present Illness HPI The patient is a 46-year-old female with a history of anxiety and previous history of IV drug abuse who complains of anxiety. She was visiting her boyfriend upstairs tonight and had a panic attack. She missed an appointment and ran out of her medications for slightly over weak. Her medications include gabapentin, Vistaril, Zyprexa and Klonopin. The patient states she can see her doctor this Thursday and just needs a medications to get her through until then. She is anxious and crying and wants something now for her anxiety. She denies suicidal ideation. PFSH Past Medical History Arthritis: No Asthma: Yes Autoimmune Disease: No Bipolar Disorder: Yes Anxiety: Yes Depression: Yes Heart Rhythm Problems: Yes (PALPITATIONS) Cancer: Yes (CERVICAL, needs surgery yet) Cardiac Catheterization: No Cardiovascular Problems: Yes ([place], [place]) High Cholesterol: No Congestive Heart Failure: No COPD: Yes Cerebrovascular Accident: Yes (STROKE AND SEIZURES) Diabetes: No Diminished Hearing: No Endocrine: No Gastrointestinal Disorders: Yes (COLITIS) GERD: Yes Genitourinary: No Headaches: Yes Hiatal Hernia: No Heparin Induced Thrombocytopen: No Herniated Disk: Yes Hypertension: Yes (during stress or pain only) Immune Disorder: No Implanted Vascular Access Dvce: No Insomnia: Yes Kidney Stones: No Musculoskeletal: Yes (CHRONIC BACK PAIN) Neurologic: Yes (BRAIN INJURY) Psychiatric: Yes Reproductive: Yes Respiratory: Yes (COPD) Immunizations Current: Yes Migraines: Yes Myocardial Infarction: Yes (2011) Renal Failure: No Seizures: Yes (WITHDRAWL) Sickle Cell Disease: No Sleep Apnea: No Thyroid Disease: No Ulcer: Yes PNEUMOCCOCAL Vaccine (Year): 2 Menopausal: No : 10 Para: 6 Miscarriage: 3 : 1 Ectopic : Yes (1994) Ovarian Cysts: Yes Dilation and Curettage (D&C): Yes Tubal Ligation: Yes Past Surgical History Abdominal Surgery: Yes (appendectomy ) AICD: No Appendectomy: Yes Arteriovenous Shunt: No Cardiac Surgery: No Coronary Artery Bypass Graft: No Ear Surgery: No Endocrine Surgery: No Eye Surgery: No Genitourinary Surgery: No Gynecologic Surgery: Yes (ectopic prenancy removed) Insulin Pump: No Joint Replacement: No Neurologic Surgery: Yes (HERNIATED LUMBAR DISCS ) Oral Surgery: No Pacemaker: No Thoracic Surgery: No Other Surgery: Yes (LEFT HAND SURGERY, left foot ) Social History Alcohol Use: No Tobacco Use: Yes (1/2 PPD) Substance Use: Yes Allergies-Medications (Allergen,Severity, Reaction): Coded Allergies: Sulfa (Sulfonamide Antibiotics) (Unverified Allergy, Severe, Rash, 10/20/16 ) *MDRO Multi-Drug Resistant Organism (Verified Adverse Reaction, Unknown, Cleared, 10/20/16) 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 Cleared per Infection Control: MRSA PCR negative - 01/01/2015 & 09/27/2015 magnesium (Unverified Adverse Reaction, Unknown, PRUITIC RASH, 10/20/16) magnesium sulfate (Unverified Adverse Reaction, Unknown, PRUITIC RASH, ) prochlorperazine (Unverified Adverse Reaction, Unknown, ANGINA, 10/20/16) terbutaline (Unverified Adverse Reaction, Unknown, HEART RATE ELEVATES, ) Reported Meds & Prescriptions Reported Meds & Active Scripts Active Lortab (Hydrocodone-Acetaminophen) 10-325 Mg Tab 1 Tab PO Q6H PRN Vibramycin (Doxycycline Hyclate) 100 Mg Cap 100 Mg PO BID 10 Days Gabapentin 600 Mg Tab 1,200 Mg PO BID Reported Klonopin (Clonazepam) 2 Mg Tab 1 Mg PO TID Seroquel (Quetiapine Fumarate) 200 Mg Tab 200 Mg PO HS Vistaril (Hydroxyzine Pamoate) 50 Mg Cap 100 Mg PO BID Review of Systems Except as stated in HPI: all other systems reviewed are Neg Physical Exam Narrative GENERAL: The patient is anxious, crying but in otherwise no apparent distress. Her vital signs are normal except for blood pressure 193/108. SKIN: Focused skin assessment warm/dry. There are no new needle tracks and no infected needle tracks. All the needle tracks on her feet and forearms appear old. HEAD: Atraumatic. Normocephalic. EYES: Pupils equal and round. No scleral icterus. No injection or drainage. ENT: No nasal bleeding or discharge. Mucous membranes pink and moist. NECK: Trachea midline. No JVD. CARDIOVASCULAR: Regular rate and rhythm. No murmur appreciated. RESPIRATORY: No accessory muscle use. Clear to auscultation. Breath sounds equal bilaterally. GASTROINTESTINAL: Abdomen soft, non-tender, nondistended. Hepatic and splenic margins not palpable. MUSCULOSKELETAL: No obvious deformities. No clubbing. No cyanosis. No edema. NEUROLOGICAL: Awake and alert. No obvious cranial nerve deficits. Motor grossly within normal limits. Normal speech. PSYCHIATRIC: The patient is anxious and crying; insight and judgment normal. Data Data Last Documented VS Vital Signs Date Time Temp Pulse Resp B/P (MAP) Pulse Ox O2 Delivery O2 Flow Rate FiO2 10/21/16 22:47 97.6 70 16 193/108 (136) 100 Orders Orders Acetaminophen (Tylenol) (10/22/16 00:15) Hydroxyzine Pamoate (Vistaril) (10/22/16 00:04) Clonazepam (Klonopin) (10/22/16 00:15) [facility] Medical Decision Making Medical Screen Exam Complete: Yes Emergency Medical Condition: Yes Medical Record Reviewed: Yes Differential Diagnosis Panic attack, noncompliance to medications, chronic anxiety, suicidal ideation- unlikely Narrative Course The patient appears to have a panic attack and is poorly compliant to follow-up to get a new prescription for medications. She will be given 7 days of gabapentin, Vistaril and Klonopin. She states she is not driving and we'll stay here with her boyfriend willy. Diagnosis Primary Impression: Panic attack Additional Impression: Noncompliance Additional Instructions: Do not drink alcohol or drive on these medications, follow-up Thursday with your physician as you intend to do. Med/Other Pt SpecificInfo: Prescription(s) given Scripts Gabapentin (Gabapentin) 300 Mg Cap 600 MG PO BID, #14 CAP 0 Refills Prov: Thompson Patrick MD 10/22/16 Clonazepam (Klonopin) 1 Mg Tab 1 MG PO TID, #21 TAB 0 Refills Prov: Thompson Patrick MD 10/22/16 Hydroxyzine Pamoate (Hydroxyzine Pamoate) 100 Mg Cap 100 MG PO TID, #21 CAP 0 Refills Prov: Thompson Patrick MD 10/22/16 Thompson Patrick MD Oct 22, 2016 00:03
[2016-10-22] MEDS ORDERED: ACETAMINOPHEN 500 MG CPLT PO ONE (00:15)
[2016-10-22] MEDS ORDERED: clonazePAM 1 MG TAB PO ONE (00:15)
[2016-10-22] MEDS ORDERED: GABA300C5 PO (00:16)
[2016-10-22] MEDS ORDERED: HYDR100C PO (00:16)
[2016-10-22] MEDS ORDERED: CLON1 PO (00:16)
[2016-10-22 00:33] VITALS: BP 156/78
== END 2016-10-22 00:36 | disposition home or self-care (01) ==
LOC: PHED 22:40
DX: F41.0 Panic disorder [episodic paroxysmal anxiety] (principal); Z91.19 Patient's noncompliance with other medical treatment and regimen; Z86.73 Personal history of transient ischemic attack (TIA), and cerebral infarction without residual deficits
CPT/HCPCS: 99284

== ENCOUNTER 2016-11-15 19:57 | Emergency (ER) | payer OTHER ==
[~2016-11-15] VITALS: Ht 162.6 cm; Wt 70.0 kg
[~2016-11-15 19:57] MED LIST changes: +CLON1 PO; +GABA300C5 PO; +HYDR100C PO; -VIBR100C PO
[2016-11-15 19:59] VITALS: BP 127/82; PULSE 69; RESP 15; TEMP 98.6; O2SAT 98
[2016-11-15] MEDS ORDERED: DEXAMETHASONE SOD PHOS 4 MG/ML VIAL IV ONE (21:45)
[2016-11-15] MEDS ORDERED: MORPHINE SULFATE 4 MG/ML INJ IV PUSH ONE (21:45)
[2016-11-15] MEDS ORDERED: AMPICILLIN-SULBACTAM INJ 3 GM in SODIUM CHLORIDE 0.9% INJ 100 ML IV ONE (21:45)
[2016-11-15] MEDS ORDERED: SODIUM CHLORIDE 0.9% FLUSH 10 ML FLUSH IVF PRN (21:45)
[2016-11-15] MEDS: SODIUM CHLOR 0.9% 1000 ML INJ 1,000 ML IV ONE ×2 (21:45→22:20)
--- NOTE | 2016-11-15 21:47 | PD ---
HPI Chief Complaint: Oral / Dental Pain or Problem Time Seen by Provider: 21:46 Travel History International Travel<30 days: No Contact w/Intl Traveler<30days: No Traveled to known affect area: No History of Present Illness HPI 46 YO F presents to the ED for evaluation of 36 hours of left-sided facial pain and swelling. Gradual onset. Patient endorses history of dental problems secondary to distant IVDA. She states she is currently in recovery. She endorses nausea. She denies fever, chills, vomiting, headache, dizziness. She treated at home with tramadol with no improvement of the pain. She does not currently have a dentist. PFSH Past Medical History Arthritis: No Asthma: Yes Autoimmune Disease: No Bipolar Disorder: Yes Anxiety: Yes Depression: Yes Heart Rhythm Problems: Yes (PALPITATIONS) Cancer: Yes (CERVICAL, needs surgery yet) Cardiac Catheterization: No Cardiovascular Problems: Yes (HTN, [place]) High Cholesterol: No Congestive Heart Failure: No COPD: Yes Cerebrovascular Accident: Yes (STROKE AND SEIZURES) Diabetes: No Diminished Hearing: No Endocrine: No Gastrointestinal Disorders: Yes (COLITIS) GERD: Yes Genitourinary: No Headaches: Yes Hiatal Hernia: No Heparin Induced Thrombocytopen: No Herniated Disk: Yes Hypertension: Yes (during stress or pain only) Immune Disorder: No Implanted Vascular Access Dvce: No Insomnia: Yes Kidney Stones: No Musculoskeletal: Yes (CHRONIC BACK PAIN) Neurologic: Yes (BRAIN INJURY) Psychiatric: Yes Reproductive: Yes Respiratory: Yes (COPD) Immunizations Current: Yes Migraines: Yes Myocardial Infarction: Yes (2011) Renal Failure: No Seizures: Yes (WITHDRAWL) Sickle Cell Disease: No Sleep Apnea: No Thyroid Disease: No Ulcer: Yes PNEUMOCCOCAL Vaccine (Year): 2 ?: Not LMP: IRREG. Menopausal: Yes : 10 Para: 6 Miscarriage: 3 : 1 Ectopic : Yes (1994) Ovarian Cysts: Yes Dilation and Curettage (D&C): Yes Tubal Ligation: Yes Past Surgical History Abdominal Surgery: Yes (appendectomy ) AICD: No Appendectomy: Yes Arteriovenous Shunt: No Cardiac Surgery: No Coronary Artery Bypass Graft: No Ear Surgery: No Endocrine Surgery: No Eye Surgery: No Genitourinary Surgery: No Gynecologic Surgery: Yes (ectopic prenancy removed) Insulin Pump: No Joint Replacement: No Neurologic Surgery: Yes (HERNIATED LUMBAR DISCS ) Oral Surgery: No Pacemaker: No Thoracic Surgery: No Other Surgery: Yes (LEFT HAND SURGERY, left foot ) Social History Alcohol Use: No Tobacco Use: Yes (1/2 PPD) Substance Use: Yes (WEED) Allergies-Medications (Allergen,Severity, Reaction): Coded Allergies: Sulfa (Sulfonamide Antibiotics) (Unverified Allergy, Severe, Rash, 11/15/16 ) *MDRO Multi-Drug Resistant Organism (Verified Adverse Reaction, Unknown, Cleared, 11/15/16) 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 Cleared per Infection Control: MRSA PCR negative - 01/01/2015 & 09/27/2015 magnesium (Unverified Adverse Reaction, Unknown, PRUITIC RASH, 11/15/16) magnesium sulfate (Unverified Adverse Reaction, Unknown, PRUITIC RASH, ) prochlorperazine (Unverified Adverse Reaction, Unknown, ANGINA, 11/15/16) terbutaline (Unverified Adverse Reaction, Unknown, HEART RATE ELEVATES, ) Reported Meds & Prescriptions Reported Meds & Active Scripts Active Ibuprofen 800 Mg Tab 800 Mg PO Q8H PRN Augmentin (Amoxicillin-Clavulanate) 875-125 Mg Tab 1 Tab PO BID 7 Days Gabapentin 300 Mg Cap 600 Mg PO BID Klonopin (Clonazepam) 1 Mg Tab 1 Mg PO TID Hydroxyzine Pamoate 100 Mg Cap 100 Mg PO TID Lortab (Hydrocodone-Acetaminophen) 10-325 Mg Tab 1 Tab PO Q6H PRN Gabapentin 600 Mg Tab 1,200 Mg PO BID Reported Klonopin (Clonazepam) 2 Mg Tab 1 Mg PO TID Seroquel (Quetiapine Fumarate) 200 Mg Tab 200 Mg PO HS Vistaril (Hydroxyzine Pamoate) 50 Mg Cap 100 Mg PO BID Review of Systems Except as stated in HPI: all other systems reviewed are Neg Physical Exam Narrative GENERAL: Well-nourished, well-developed tearful white female in no acute distress. SKIN: Focused skin assessment warm/dry. HEAD: Normocephalic. EYES: No scleral icterus. No injection or drainage. ENT: Pearly perla tympanic membranes bilaterally. Oropharynx without erythema, edema or exudate. Airway patent. Uvula midline. Floor of mouth is soft. DENTAL: Poor dentition. The teeth are noted to the gumline with multiple dental caries. The cheek is indurated, erythematous and tender. No visible abscess. NECK: Supple, trachea midline. No JVD or lymphadenopathy. CARDIOVASCULAR: Regular rate and rhythm without murmurs, gallops, or rubs. RESPIRATORY: Breath sounds equal bilaterally. No accessory muscle use. GASTROINTESTINAL: Abdomen soft, non-tender, nondistended. MUSCULOSKELETAL: No cyanosis, or edema. BACK: Nontender without obvious deformity. No CVA tenderness. Data Data Last Documented VS Vital Signs Date Time Temp Pulse Resp B/P (MAP) Pulse Ox O2 Delivery O2 Flow Rate FiO2 11/15/16 19:59 98.6 69 15 127/82 (97) 98 Room Air Orders Orders Basic Metabolic Panel (Bmp) (11/15/16 21:42) Complete Blood Count With Diff (11/15/16 21:42) Iv Access Insert/Monitor (11/15/16 21:42) Dexamethasone Inj (Decadron Inj) (11/15/16 21:45) Sodium Chloride 0.9% Flush (Ns Flush) (11/15/16 21:45) Ampicillin-Sulbactam Inj (Unasyn Inj) (11/15/16 21:45) Morphine Inj (Morphine Inj) (11/15/16 21:45) Sodium Chlor 0.9% 1000 Ml Inj (Ns 1000 M (11/15/16 21:45) Blood Culture (11/15/16 21:48) Ondansetron Inj (Zofran Inj) (11/15/16 22:45) Labs Laboratory Tests Test 11/15/16 21:40 White Blood Count 14.6 TH/MM3 Red Blood Count 4.59 MIL/MM3 Hemoglobin 10.7 GM/DL Hematocrit 35.0 % Mean Corpuscular Volume 76.3 FL Mean Corpuscular Hemoglobin 23.3 PG Mean Corpuscular Hemoglobin Concent 30.5 % Red Cell Distribution Width 17.2 % Platelet Count 294 TH/MM3 Mean Platelet Volume 9.6 FL Neutrophils (%) (Auto) 64.9 % Lymphocytes (%) (Auto) 25.4 % Monocytes (%) (Auto) 7.8 % Eosinophils (%) (Auto) 1.3 % Basophils (%) (Auto) 0.6 % Neutrophils # (Auto) 9.5 TH/MM3 Lymphocytes # (Auto) 3.7 TH/MM3 Monocytes # (Auto) 1.1 TH/MM3 Eosinophils # (Auto) 0.2 TH/MM3 Basophils # (Auto) 0.1 TH/MM3 CBC Comment DIFF FINAL Differential Comment Blood Urea Nitrogen 10 MG/DL Creatinine 0.80 MG/DL Random Glucose 98 MG/DL Calcium Level 8.7 MG/DL Sodium Level 139 MEQ/L Potassium Level 4.0 MEQ/L Chloride Level 107 MEQ/L Carbon Dioxide Level 27.8 MEQ/L Anion Gap 4 MEQ/L Estimat Glomerular Filtration Rate 78 ML/MIN MDM Medical Decision Making Medical Screen Exam Complete: Yes Emergency Medical Condition: Yes Differential Diagnosis Dental abscess versus cellulitis versus soft tissue infection versus gingivitis versus other Narrative Course 46 YO F presents to the ED for evaluation of 36 hours of left-sided facial pain and swelling. Gradual onset. Patient endorses history of dental problems secondary to distant IVDA. She states she is currently in recovery. She endorses nausea. She denies fever, chills, vomiting, headache, dizziness. Vitals reviewed. Physical exam reveals tender edema of the left cheek. The dental exam reveals extremely poor dentition with multiple teeth eroded to the gumline and active cavities and dental infection. No visible abscess to drain. IV was established. Cultures were drawn. Patient was administered 1 L normal saline, 10 mg Decadron, 3 g of Unasyn, 4 mg dose and then 4 mg of morphine IV. CBC reveals leukocytosis of 14.6. Will discharge on a course of Augmentin with a list of community dental resources. We discussed reasons to return to the ED. Patient indicated understanding of instructions. Patient is stable and discharged home. Diagnosis Primary Impression: Dental abscess Additional Impression: Left facial swelling Referrals: Dentist Patient Instructions: Dental Abscess (ED), General Instructions Additional Instructions: Rest, hydrate. Take all the antibiotics as they are prescribed, even appear symptoms resolved. Alternating Tylenol or Motrin as needed for continued pain or fever. Return to the ED for worsening symptoms. Follow-up with the dentist as soon as antibiotics are finished. Return to the ED for any urgent or emergent medical condition. Med/Other Pt SpecificInfo: Prescription(s) given Scripts Ibuprofen (Ibuprofen) 800 Mg Tab 800 MG PO Q8H Y for Pain/Inflammation, #15 TAB 0 Refills Prov: Elvis Ohara MD 11/15/16 Amoxicillin-Clavulanate (Augmentin) 875-125 Mg Tab 1 TAB PO BID for Infection for 7 Days, #14 TAB 0 Refills Prov: Elvis Ohara MD 11/15/16 Disposition: 01 DISCHARGE HOME Condition: Stable Haylee Cheng Nov 15, 2016 21:47
[2016-11-15 22:18] LABS: AUTOMATED NEUTROPHIL # 9.5 TH/MM3 (1.8-7.7); BASOPHIL # 0.1 TH/MM3 (0-0.2); BASOPHIL % 0.6 % (0.0-2.0); EOSINOPHIL # 0.2 TH/MM3 (0-0.4); EOSINOPHIL % 1.3 % (0.0-4.0); HEMO FLAGS DIFF FINAL; LYMPH % 25.4 % (9.0-44.0); LYMPHOCYTE # 3.7 TH/MM3 (1.0-4.8); MEAN CELL VOLUME 76.3 FL (80.0-100.0); MEAN CORPUSCULAR HEMOGLOBIN 23.3 PG (27.0-34.0); MEAN CORPUSCULAR HGB CONC 30.5 % (32.0-36.0); MONO % 7.8 % (0.0-8.0); NEUT % 64.9 % (16.0-70.0); PLATELET COUNT 294 TH/MM3 (150-450); RED BLOOD COUNT 4.59 MIL/MM3 (4.00-5.30); RED CELL DISTRIBUTION WIDTH 17.2 % (11.6-17.2); WHITE BLOOD COUNT 14.6 TH/MM3 (4.0-11.0)
[2016-11-15 22:42] LABS: BICARBONATE 27.8 MEQ/L (21.0-32.0)
[2016-11-15] MEDS ORDERED: ONDANSETRON HCL 4 MG/2 ML VIAL IV PUSH ONE (22:45)
[2016-11-15] MEDS ORDERED: AUGM875T3 PO (22:46)
[2016-11-15] MEDS ORDERED: IBUP800T23 PO (22:46)
[2016-11-15 22:58] VITALS: BP 134/61
--- NOTE | 2016-11-15 23:11 | PD ---
Data Data Last Documented VS Vital Signs Date Time Temp Pulse Resp B/P (MAP) Pulse Ox O2 Delivery O2 Flow Rate FiO2 11/15/16 22:58 78 16 134/61 (85) 97 11/15/16 19:59 98.6 Room Air Orders Orders Basic Metabolic Panel (Bmp) (11/15/16 21:42) Complete Blood Count With Diff (11/15/16 21:42) Iv Access Insert/Monitor (11/15/16 21:42) Dexamethasone Inj (Decadron Inj) (11/15/16 21:45) Sodium Chloride 0.9% Flush (Ns Flush) (11/15/16 21:45) Ampicillin-Sulbactam Inj (Unasyn Inj) (11/15/16 21:45) Morphine Inj (Morphine Inj) (11/15/16 21:45) Sodium Chlor 0.9% 1000 Ml Inj (Ns 1000 M (11/15/16 21:45) Blood Culture (11/15/16 21:48) Ondansetron Inj (Zofran Inj) (11/15/16 22:45) Labs Laboratory Tests Test 11/15/16 21:40 White Blood Count 14.6 TH/MM3 Red Blood Count 4.59 MIL/MM3 Hemoglobin 10.7 GM/DL Hematocrit 35.0 % Mean Corpuscular Volume 76.3 FL Mean Corpuscular Hemoglobin 23.3 PG Mean Corpuscular Hemoglobin Concent 30.5 % Red Cell Distribution Width 17.2 % Platelet Count 294 TH/MM3 Mean Platelet Volume 9.6 FL Neutrophils (%) (Auto) 64.9 % Lymphocytes (%) (Auto) 25.4 % Monocytes (%) (Auto) 7.8 % Eosinophils (%) (Auto) 1.3 % Basophils (%) (Auto) 0.6 % Neutrophils # (Auto) 9.5 TH/MM3 Lymphocytes # (Auto) 3.7 TH/MM3 Monocytes # (Auto) 1.1 TH/MM3 Eosinophils # (Auto) 0.2 TH/MM3 Basophils # (Auto) 0.1 TH/MM3 CBC Comment DIFF FINAL Differential Comment Blood Urea Nitrogen 10 MG/DL Creatinine 0.80 MG/DL Random Glucose 98 MG/DL Calcium Level 8.7 MG/DL Sodium Level 139 MEQ/L Potassium Level 4.0 MEQ/L Chloride Level 107 MEQ/L Carbon Dioxide Level 27.8 MEQ/L Anion Gap 4 MEQ/L Estimat Glomerular Filtration Rate 78 ML/MIN MDM Supervised Visit with SOFIA: Yes Narrative Course The history, exam, and medical decision-making in the associated mid-level provider note were completed with my assistance. I reviewed and agree with the findings presented. I attest that I had a [id number] encounter with the patient on the same day, and personally performed and documented my assessment and findings in the medical record. *My assessment and Findings: 46 year-old woman with facial swelling and tenderness suggestive odontogenic infection. History of similar problems in the past. No drainable collection identified on exam. No obvious fluctuance. Recommend antibiotic steroids pain medicine reassess. Diagnosis Primary Impression: Dental abscess Additional Impression: Left facial swelling Referrals: Dentist Patient Instructions: General Instructions, Dental Abscess (ED) Departure Forms: Tests/Procedures Additional Instruction: Rest, hydrate. Take all the antibiotics as they are prescribed, even appear symptoms resolved. Alternating Tylenol or Motrin as needed for continued pain or fever. Return to the ED for worsening symptoms. Follow-up with the dentist as soon as antibiotics are finished. Return to the ED for any urgent or emergent medical condition. Scripts Ibuprofen (Ibuprofen) 800 Mg Tab 800 MG PO Q8H Y for Pain/Inflammation, #15 TAB 0 Refills Prov: Elvis Ohara MD 11/15/16 Amoxicillin-Clavulanate (Augmentin) 875-125 Mg Tab 1 TAB PO BID for Infection for 7 Days, #14 TAB 0 Refills Prov: Elvis Ohara MD 11/15/16 Disposition: 01 DISCHARGE HOME Condition: Stable Elvis Ohara MD Nov 15, 2016 23:11
== END 2016-11-15 22:59 | disposition home or self-care (01) ==
LOC: NEPC 19:57
DX: K04.7 Periapical abscess without sinus (principal); R22.0 Localized swelling, mass and lump, head; R11.0 Nausea; D72.829 Elevated white blood cell count, unspecified; I10 Essential (primary) hypertension; I25.2 Old myocardial infarction; F17.200 Nicotine dependence, unspecified, uncomplicated; Z87.09 Personal history of other diseases of the respiratory system; Z86.59 Personal history of other mental and behavioral disorders; Z86.79 Personal history of other diseases of the circulatory system; Z87.19 Personal history of other diseases of the digestive system; Z87.39 Personal history of other diseases of the musculoskeletal system and connective tissue; Z86.69 Personal history of other diseases of the nervous system and sense organs; Z85.41 Personal history of malignant neoplasm of cervix uteri
CPT/HCPCS: 80048; 85025; 87040; 96365; 96375; 99284; J0295; J1100; J2270; J2405; J7030

== ENCOUNTER 2016-11-17 16:18 | Emergency (ER) | payer SELFPAY ==
[~2016-11-17] VITALS: Ht 162.6 cm; Wt 70.5 kg
[~2016-11-17 16:18] MED LIST changes: +AUGM875T3 PO; +IBUP800T23 PO
[2016-11-17 16:20] VITALS: BP 123/77; PULSE 88; RESP 17; TEMP 98.3; O2SAT 99
--- NOTE | 2016-11-17 16:42 | PD ---
Physical Exam Date Seen by Provider: Nov 17, 2016 Time Seen by Provider: 16:41 Narrative 46 yo female here for left facial swelling and dental pain. Pain is 10/10. Swelling to the left upper jaw. Painful. No fevers, chills, sweats. No lymphadenopathy. Seen two days ago, given antibiotics. Ibuprofen not helping. Vitals stable in triage. Awaiting bed placement. Data Data Last Documented VS Vital Signs Date Time Temp Pulse Resp B/P (MAP) Pulse Ox O2 Delivery O2 Flow Rate FiO2 11/17/16 16:20 98.3 88 17 123/77 (92) 99 MDM Medical Record Reviewed: Yes Supervised Visit with SOFIA: Cordell Arevalo Nov 17, 2016 16:42
[2016-11-17] MEDS ORDERED: ZYPR15TA PO (19:50)
--- NOTE | 2016-11-17 19:54 | PD ---
HPI Chief Complaint: Oral / Dental Pain or Problem Time Seen by Provider: 19:53 Travel History International Travel<30 days: No Contact w/Intl Traveler<30days: No Traveled to known affect area: No History of Present Illness HPI 46 year-old female presents to emergency department for evaluation of dental abscess. Patient was seen and evaluated and started on amoxicillin. She has taken 2 doses of this and her symptoms have not improved. She states that her face is becoming more swollen and more painful. She feels as though there is an area that can be drained in her gingiva. Patient has generalized poor dentition from remote history of IV drug abuse. She is trying to figure out a way to get the Celexa has not been able to as of yet. Denies fever or chills. Pain is a constant, throbbing in her left axilla radiating to her cheek. She has no other symptoms to report. PFSH Past Medical History Arthritis: No Asthma: Yes Autoimmune Disease: No Bipolar Disorder: Yes Anxiety: Yes Depression: Yes Heart Rhythm Problems: Yes (PALPITATIONS) Cancer: Yes (CERVICAL, needs surgery yet) Cardiac Catheterization: No Cardiovascular Problems: Yes High Cholesterol: No Congestive Heart Failure: No COPD: Yes Cerebrovascular Accident: Yes (STROKE AND SEIZURES) Diabetes: No Diminished Hearing: No Endocrine: No Gastrointestinal Disorders: Yes (COLITIS) GERD: Yes Genitourinary: No Headaches: Yes Hiatal Hernia: No Heparin Induced Thrombocytopen: No Herniated Disk: Yes Hypertension: Yes (during stress or pain only) Immune Disorder: No Implanted Vascular Access Dvce: No Insomnia: Yes Kidney Stones: No Musculoskeletal: Yes (CHRONIC BACK PAIN) Neurologic: Yes (BRAIN INJURY) Psychiatric: Yes Reproductive: Yes Respiratory: Yes (COPD) Immunizations Current: Yes Migraines: Yes Myocardial Infarction: Yes (2011) Renal Failure: No Seizures: Yes (WITHDRAWL) Sickle Cell Disease: No Sleep Apnea: No Thyroid Disease: No Ulcer: Yes Tetanus Vaccination: < 5 Years PNEUMOCCOCAL Vaccine (Year): 2 ?: Not Menopausal: Yes : 10 Para: 6 Miscarriage: 3 : 1 Ectopic : Yes (1994) Ovarian Cysts: Yes Dilation and Curettage (D&C): Yes Tubal Ligation: Yes Past Surgical History Abdominal Surgery: Yes (appendectomy ) AICD: No Appendectomy: Yes Arteriovenous Shunt: No Cardiac Surgery: No Coronary Artery Bypass Graft: No Ear Surgery: No Endocrine Surgery: No Eye Surgery: No Genitourinary Surgery: No Gynecologic Surgery: Yes (ectopic prenancy removed) Insulin Pump: No Joint Replacement: No Neurologic Surgery: Yes (HERNIATED LUMBAR DISCS ) Oral Surgery: No Pacemaker: No Thoracic Surgery: No Other Surgery: Yes (LEFT HAND SURGERY, left foot ) Social History Alcohol Use: No Tobacco Use: Yes (1/2 PPD) Substance Use: Yes (WEED) Allergies-Medications (Allergen,Severity, Reaction): Coded Allergies: Sulfa (Sulfonamide Antibiotics) (Unverified Allergy, Severe, Rash, 11/17/16 ) *MDRO Multi-Drug Resistant Organism (Verified Adverse Reaction, Unknown, Cleared, 11/17/16) 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 Cleared per Infection Control: MRSA PCR negative - 01/01/2015 & 09/27/2015 magnesium (Unverified Adverse Reaction, Unknown, PRUITIC RASH, 11/17/16) magnesium sulfate (Unverified Adverse Reaction, Unknown, PRUITIC RASH, ) prochlorperazine (Unverified Adverse Reaction, Unknown, ANGINA, 11/17/16) terbutaline (Unverified Adverse Reaction, Unknown, HEART RATE ELEVATES, ) Reported Meds & Prescriptions Reported Meds & Active Scripts Active Peridex Liq (Chlorhexidine Gluconate (Mouth) Liq) 0.12% Soln 15 Ml SWISH-SPIT BID 14 Days Lortab (Hydrocodone-Acetaminophen) 5-325 Mg Tab 1 Tab PO Q6H PRN Clindamycin (Clindamycin HCl) 300 Mg Cap 300 Mg PO Q6H 10 Days Ibuprofen 800 Mg Tab 800 Mg PO Q8H PRN Augmentin (Amoxicillin-Clavulanate) 875-125 Mg Tab 1 Tab PO BID 7 Days Gabapentin 600 Mg Tab 1,200 Mg PO BID Reported Zyprexa (Olanzapine) 15 Mg Tab 15 Mg PO DAILY Klonopin (Clonazepam) 2 Mg Tab 1 Mg PO TID Vistaril (Hydroxyzine Pamoate) 50 Mg Cap 100 Mg PO BID Review of Systems Except as stated in HPI: all other systems reviewed are Neg Physical Exam Narrative GENERAL: Well-nourished female patient, in no acute distress SKIN: Focused skin assessment warm/dry. HEAD:. Normocephalic. Mild swelling of the left cheek adjacent to the maxillary second and third bicuspids. EYES: Pupils equal and round. No scleral icterus. No injection or drainage. ENT: No nasal bleeding or discharge. Mucous membranes pink and moist. DENTAL: Otherwise poor dentition. Patient's teeth are all decayed to the gingiva with significant gingival erythema and edema. There is a 2 cm palpable , fluctuant collection over the left maxillary first and second bicuspid. No malocclusion. NECK: Trachea midline. No JVD. CARDIOVASCULAR: Regular rate and rhythm. No murmur appreciated. RESPIRATORY: No accessory muscle use. Clear to auscultation. Breath sounds equal bilaterally. MUSCULOSKELETAL: No obvious deformities. No clubbing. No cyanosis. No edema. NEUROLOGICAL: Awake and alert. No obvious cranial nerve deficits. Motor grossly within normal limits. Normal speech. Data Data Last Documented VS Vital Signs Date Time Temp Pulse Resp B/P (MAP) Pulse Ox O2 Delivery O2 Flow Rate FiO2 11/17/16 20:47 11/17/16 16:20 98.3 88 17 99 Orders Orders Dexamethasone Inj (Decadron Inj) (11/17/16 20:00) Clindamycin Inj (Cleocin Inj) (11/17/16 20:00) Acetamin-Hydrocod 325-5 Mg ([place] 5-325 (11/17/16 20:15) MDM Medical Decision Making Medical Screen Exam Complete: Yes Emergency Medical Condition: Yes Medical Record Reviewed: Yes Differential Diagnosis Dental abscess versus gingivitis versus pulpitis versus cellulitis Narrative Course 46-year-old female presents to the emergency department for evaluation. Patient has generalized poor dentition. She does have an area of fluctuance in the gingiva near the maxillary first and second bicuspid on the left. Puncture I&D is complete. Patient is given pain control. I will change her antibiotic to clindamycin. I have explained to her that when she is taking this and if things get worse she is to come to emergency department for reevaluation. She agrees with this plan of care. She'll be discharged at this time. Procedures Procedure Narrative INCISION AND DRAINAGE OF ABSCESS:. A number #18-gauge sterile needle was used to make a puncture incision across the area of the abscess. Purulent drainage was noted. Patient tolerated this well. Diagnosis Primary Impression: Dental abscess Referrals: Dentist Primary Care Physician Patient Instructions: Dental Abscess (ED), General Instructions Additional Instructions: It is important that you seek dental evaluation Follow-up with primary care provider Stop Augmentin start clindamycin in the morning. Take it as directed and until it is all gone Return immediately to the emergency department with any acute worsening of symptoms Med/Other Pt SpecificInfo: Prescription(s) given, Med Stopped Scripts Chlorhexidine Gluconate (Mouth) Liq (Peridex Liq) 0.12% Soln 15 ML SWISH-SPIT BID for 14 Days, #420 ML 0 Refills Prov: Adwoa Hurtado 11/17/16 Hydrocodone-Acetaminophen (Lortab) 5-325 Mg Tab 1 TAB PO Q6H Y for PAIN GREATER THAN 6, #15 TAB 0 Refills Prov: Adwoa Hurtado 11/17/16 Clindamycin (Clindamycin) 300 Mg Cap 300 MG PO Q6H for Infection for 10 Days, #40 CAP 0 Refills Prov: Adwoa Hurtado 11/17/16 Disposition: 01 DISCHARGE HOME Condition: Stable Adwoa Hurtado Nov 17, 2016 19:54
[2016-11-17] MEDS ORDERED: CLINDAMYCIN PHOS 600 MG/4 ML VIAL IM ONE (20:00)
[2016-11-17] MEDS ORDERED: DEXAMETHASONE SOD PHOS 20 MG/5 ML VIAL IM ONE (20:00)
[2016-11-17] MEDS ORDERED: CLIN1CAP6 PO (20:05)
[2016-11-17] MEDS ORDERED: PERI0.126 SWISH-SPIT (20:05)
[2016-11-17] MEDS ORDERED: HYDR-3533 PO (20:05)
[2016-11-17] MEDS ORDERED: ACETAMINOPHEN/HYDROcodone 325 MG/5 MG TAB PO ONE (20:15)
== END 2016-11-17 20:48 | disposition home or self-care (01) ==
LOC: NEPK 16:18
DX: K04.7 Periapical abscess without sinus (principal); F17.200 Nicotine dependence, unspecified, uncomplicated
CPT/HCPCS: 41800; 96372; 99284; J1100

== ENCOUNTER 2016-12-07 23:44 | Observation (INO) | payer SELFPAY ==
[~2016-12-07] VITALS: Ht 162.6 cm; Wt 70.0 kg
[~2016-12-07 23:44] MED LIST changes: +CLIN1CAP6 PO; -CLON1 PO; -GABA300C5 PO; +HYDR-3533 PO; -HYDR-3535 PO; -HYDR100C PO; +PERI0.126 SWISH-SPIT; -SERO200T PO; +ZYPR15TA PO
[2016-12-08] VITALS (7 sets, daily range): BP systolic 101–143; BP diastolic 62–75; PULSE 56–73; RESP 16–18; TEMP 96.2–98.9; O2SAT 95–98
[2016-12-08] MEDS ORDERED: CLON0.3T PO (00:15)
--- NOTE | 2016-12-08 00:40 | PD ---
HPI Chief Complaint: Abdominal Pain Time Seen by Provider: 00:16 Travel History International Travel<30 days: No Contact w/Intl Traveler<30days: No Traveled to known affect area: No History of Present Illness HPI The patient is a 46 year old female who presents to the ED with a history of nausea and vomiting that began 2 days ago. She reports that she has been vomiting every few minutes. She awoke yesterday with left sided abdominal pain. She reports having this type of abdominal pain intermittently for the last year. She has not slept for the last 3 days. She ran out of Klonopin 1 week ago. She was on 1 mg tid. She has been on Klonopin for a couple of years. She has a pain management doctor that prescribes Morphine for her. She ran out 3 weeks ago. She used Dilaudid yesterday from the street that she reportedly injected. She is also having repeated diarrhea. She is having palpitations. Unfortunately, the patient is a poor historian. This seems to be partly related to the patient's nausea and vomiting, however the patient also has difficulty recalling some of her history. She denies having any vaginal discharge or unusual vaginal bleeding. She has a history of abnormal pap smear dx as "cancer" that she never followed up with a physician about. Dr. Hurtado- PCP. [facility] Past Medical History Narrative Medical The patient's past medical history is significant for a reported history of having an abnormal cervix diagnosed when she was 9 years ago. She reports that she was told that she would need surgery, however she never followed up to have this done. History of chronic back pain, history of IV drug use, COPD, CVA, seizures related to withdrawal syndromes in the past, anxiety and depression. History of ulcerative colitis, Crohn's disease, history of ectopic , history of recurrent abscesses related to IV drug use, COPD, history of a fibroid tumor of the uterus, history of ovarian cysts, kidney stones, Escherichia coli and enterococcus sepsis. Arthritis: No Asthma: Yes Autoimmune Disease: No Bipolar Disorder: Yes Anxiety: Yes Depression: Yes Heart Rhythm Problems: Yes (PALPITATIONS) Cancer: Yes (CERVICAL, needs surgery yet) Cardiac Catheterization: No Cardiovascular Problems: Yes High Cholesterol: No Congestive Heart Failure: No COPD: Yes Cerebrovascular Accident: Yes (STROKE AND SEIZURES) Diabetes: No Diminished Hearing: No Endocrine: No Gastrointestinal Disorders: Yes (COLITIS) GERD: Yes Genitourinary: No Headaches: Yes Hepatitis: Yes (C) Hiatal Hernia: No Heparin Induced Thrombocytopen: No Herniated Disk: Yes Hypertension: Yes Immune Disorder: No Implanted Vascular Access Dvce: No Insomnia: Yes Kidney Stones: No Musculoskeletal: Yes (CHRONIC BACK PAIN) Neurologic: Yes (BRAIN INJURY) Psychiatric: Yes Reproductive: Yes Respiratory: Yes (COPD) Immunizations Current: Yes Migraines: Yes Myocardial Infarction: Yes (2011) Renal Failure: No Seizures: Yes (WITHDRAWL) Sickle Cell Disease: No Sleep Apnea: No Thyroid Disease: No Ulcer: Yes PNEUMOCCOCAL Vaccine (Year): 2 ?: Not LMP: Oct 2016 Menopausal: Yes : 10 Para: 6 Miscarriage: 3 : 1 Ectopic : Yes (1994) Ovarian Cysts: Yes Dilation and Curettage (D&C): Yes Tubal Ligation: Yes Past Surgical History Narrative Surgical The patient's past surgical history is significant for an appendectomy, multiple incisions and drainages related to IV drug induced abscesses, bilateral tubal ligation. Abdominal Surgery: Yes (appendectomy ) AICD: No Appendectomy: Yes Arteriovenous Shunt: No Cardiac Surgery: No Coronary Artery Bypass Graft: No Ear Surgery: No Endocrine Surgery: No Eye Surgery: No Genitourinary Surgery: No Gynecologic Surgery: Yes Insulin Pump: No Joint Replacement: No Neurologic Surgery: Yes (HERNIATED LUMBAR DISCS ) Oral Surgery: No Pacemaker: No Thoracic Surgery: No Other Surgery: Yes (LEFT HAND SURGERY, left foot ) Social History Alcohol Use: No Tobacco Use: Yes (1/2 PPD) Substance Use: Yes (WEED, last used Dilaudid from the street yesterday) Allergies-Medications (Allergen,Severity, Reaction): Coded Allergies: Sulfa (Sulfonamide Antibiotics) (Unverified Allergy, Severe, Rash, 11/17/16 ) magnesium (Unverified Adverse Reaction, Unknown, PRUITIC RASH, 11/17/16) magnesium sulfate (Unverified Adverse Reaction, Unknown, PRUITIC RASH, ) prochlorperazine (Unverified Adverse Reaction, Unknown, ANGINA, 11/17/16) terbutaline (Unverified Adverse Reaction, Unknown, HEART RATE ELEVATES, ) Reported Meds & Prescriptions Reported Meds & Active Scripts Active Gabapentin 600 Mg Tab 1,200 Mg PO BID Reported Clonidine (Clonidine HCl) 0.3 Mg Tab 0.3 Mg PO TID Zyprexa (Olanzapine) 15 Mg Tab 15 Mg PO DAILY Klonopin (Clonazepam) 2 Mg Tab 1 Mg PO TID Vistaril (Hydroxyzine Pamoate) 50 Mg Cap 100 Mg PO BID Review of Systems ROS Limitations: Poor Historian Except as stated in HPI: all other systems reviewed are Neg General / Constitutional: No: Fever Eyes: No: Visual changes HENT: No: Headaches Cardiovascular: No: Chest Pain or Discomfort Respiratory: No: Shortness of Breath Gastrointestinal: Positive: Nausea, Vomiting, Diarrhea, Abdominal Pain, Changes in Bowel Habits Genitourinary: No: Dysuria Musculoskeletal: No: Pain Skin: No Rash Neurologic: No: Weakness Psychiatric: No: Depression Endocrine: No: Polydipsia Hematologic/Lymphatic: No: Easy Bruising Physical Exam Narrative General: The patient is a well-developed well-nourished female, uncomfortable appearing on arrival, repeatedly retching and vomiting. Head and Neck exam: Head is normocephalic atraumatic. Eyes: EOMI, pupils are equal round and reactive to light. Nose: Midline septum with pink mucous membranes Mouth: Dentition unremarkable. Moist mucus membranes. Posterior oropharynx is not erythematous. No tonsillar hypertrophy. Uvula midline. Airway patent. Neck: No palpable lymphadenopathy. No nuchal rigidity. No thyromegaly. Cardiovascular: Regular rate and rhythm without murmurs, gallops, or rubs. Lungs: Clear to auscultation bilaterally. No wheezes, rhonchi, or rales. Abdomen: Soft, with tenderness on palpation of the left upper quadrant of the abdomen. No other tenderness on palpation of the other quadrants of the abdomen. No guarding, rebound, or rigidity. Normal bowel sounds are audible. No tenderness on palpation of McBurney's point. Negative Sheridan's sign. Extremities: No clubbing, cyanosis, or edema. 2+ pulses in all 4 extremities. No calf tenderness on palpation. Back: No spinous process tenderness to palpation. Left CVA tenderness on palpation. Neurologic Exam: Grossly nonfocal. Skin Exam: No rash noted. Intact skin that is warm and dry. Gynecologic exam: The patient was placed in the dorsal lithotomy position. Her external genitalia were examined. She had no evidence of rash or lesions. The speculum was placed into her vagina and the cervix was identified. She had a physiologic appearing clear white discharge. The patient has a large polyp- like mass noted that appears to originate from her cervix that is moving contour. No cervical friability. On Bimanual exam: she has no cervical motion tenderness. The patient reports having left-sided tenderness on palpation on bimanual examination. There is no palpable mass. No uterine tenderness or enlargement noted on palpation. Data Data Last Documented VS Vital Signs Date Time Temp Pulse Resp B/P (MAP) Pulse Ox O2 Delivery O2 Flow Rate FiO2 12/08/16 00:09 98.9 73 16 113/73 (86) 98 Orders Orders Electrocardiogram (12/08/16:32) Complete Blood Count With Diff (12/08/16:32) Comprehensive Metabolic Panel (12/08/16:32) C-Reactive Protein (Crp) (12/08/16 00:32) Lipase (12/08/16 00:32) Urinalysis - C+S If Indicated (12/08/16 00:32) Magnesium (Mg) (12/08/16 00:32) Iv Access Insert/Monitor (12/08/16 00:32) Ecg Monitoring (12/08/16 00:32) Oximetry (12/08/16 00:32) Ed Urine Pregnancytest Poc (12/08/16 00:32) Sodium Chlor 0.9% 1000 Ml Inj (Ns 1000 M (12/08/16 00:45) Ondansetron Inj (Zofran Inj) (12/08/16 00:45) Creatine Kinase (Cpk) (12/08/16 00:40) Ckmb (Isoenzyme) Profile (12/08/16 00:40) Troponin I (12/08/16 00:40) B-Type Natriuretic Peptide (12/08/16 00:40) Westergren Sedimentation Rate (12/08/16 00:40) Lorazepam Inj (Ativan Inj) (12/08/16 00:45) Ct Abd/Pel W Iv Contrast(Rout) (12/08/16 00:44) Ketorolac Inj (Toradol Inj) (12/08/16 00:45) Urine Culture (12/08/16 01:35) Iohexol 350 Inj (Omnipaque 350 Inj) (12/08/16 01:56) Admit Order (Ed Use Only) (12/08/16 02:37) Gc And Chlamydia Pcr (12/08/16 02:37) Wet Prep Profile (12/08/16 02:37) Us Pelvis Comp W Dop Transvag (12/08/16 02:37) Labs Laboratory Tests Test 12/08/16 00:30 12/08/16 01:35 White Blood Count 12.2 TH/MM3 Red Blood Count 5.93 MIL/MM3 Hemoglobin 14.5 GM/DL Hematocrit 45.5 % Mean Corpuscular Volume 76.8 FL Mean Corpuscular Hemoglobin 24.4 PG Mean Corpuscular Hemoglobin Concent 31.8 % Red Cell Distribution Width 18.7 % Platelet Count 304 TH/MM3 Mean Platelet Volume 10.0 FL Neutrophils (%) (Auto) 77.1 % Lymphocytes (%) (Auto) 18.0 % Monocytes (%) (Auto) 4.4 % Eosinophils (%) (Auto) 0.1 % Basophils (%) (Auto) 0.4 % Neutrophils # (Auto) 9.4 TH/MM3 Lymphocytes # (Auto) 2.2 TH/MM3 Monocytes # (Auto) 0.5 TH/MM3 Eosinophils # (Auto) 0.0 TH/MM3 Basophils # (Auto) 0.0 TH/MM3 CBC Comment DIFF FINAL Differential Comment Erythrocyte Sedimentation Rate 1 mm/hr Blood Urea Nitrogen 18 MG/DL Creatinine 1.15 MG/DL Random Glucose 142 MG/DL Total Protein 10.1 GM/DL Albumin 5.0 GM/DL Calcium Level 9.8 MG/DL Magnesium Level 2.0 MG/DL Alkaline Phosphatase 158 U/L Aspartate Amino Transf (AST/SGOT) 16 U/L Alanine Aminotransferase (ALT/SGPT) 24 U/L Total Bilirubin 0.6 MG/DL Sodium Level 139 MEQ/L Potassium Level 3.1 MEQ/L Chloride Level 98 MEQ/L Carbon Dioxide Level 32.4 MEQ/L Anion Gap 9 MEQ/L Estimat Glomerular Filtration Rate 51 ML/MIN Total Creatine Kinase 49 U/L Troponin I LESS THAN 0.02 NG/ML C-Reactive Protein 0.34 MG/DL B-Type Natriuretic Peptide 14 PG/ML Lipase 115 U/L Urine Color RED Urine Turbidity CLOUDY Urine pH 6.0 Urine Specific [place] 1.033 Urine Protein 100 mg/dL Urine Glucose (UA) TRACE mg/dL Urine Ketones 80 mg/dL Urine Occult Blood NEG Urine Nitrite NEG Urine Bilirubin NEG Urine Urobilinogen 4.0 MG/DL Urine Leukocyte Esterase MOD Urine RBC 3 /hpf Urine WBC 36 /hpf Urine Squamous Epithelial Cells 117 /hpf Urine Amorphous Sediment RARE Urine Bacteria OCC /hpf Urine Mucus MANY /lpf Microscopic Urinalysis Comment CULTURE INDICATED Urine Opiates Screen POS Urine Barbiturates Screen NEG Urine Amphetamines Screen NEG Urine Benzodiazepines Screen NEG Urine Cocaine Screen POS Urine Cannabinoids Screen POS MDM Medical Decision Making Medical Screen Exam Complete: Yes Emergency Medical Condition: Yes Medical Record Reviewed: Yes Interpretation(s) Last Impressions Abdomen/Pelvis CT 12/08/16 0044 Signed Impressions: Service Date/Time: Thursday, December 08, 2016 01:47 - CONCLUSION: 1. Right adnexal cyst versus tubo-ovarian abscess with findings of pelvic inflammatory disease. Mohsen Ovalles MD Differential Diagnosis benzodiazepine withdrawal, versus opiate withdrawal, versus intraabdominal process. Narrative Course During the course of the patients emergency department visit, the patients history, examination, and differential diagnosis were reviewed with the patient. The patient had IV access obtained and blood work sent for analysis. The patient was placed on a cardiac rehab nurse with oximetry and blood pressure monitoring. An ECG was done on arrival. The patient's ECG reveals a sinus rhythm with marked sinus arrhythmia, heart rate of 63, no acute ST segment elevation. T waves are inverted in V1. QRS duration is 101 ms, QTc is 443 ms. The patient was initially provided Toradol 15 mg IV for pain, Ativan 1 mg IV for agitation and anxiety and withdrawal symptoms related to being out of Klonopin, normal saline 1 L IV fluid bolus, Zofran 4 mg IV. The patients laboratory studies were reviewed and remarkable for a white count of 12.2, hemoglobin 14.5, platelets 304 with 77.1, CMP is remarkable for potassium of 3.1 which was supplemented orally after nausea and vomiting was controlled, CO2 32.4, creatinine 1.15, glucose 152, alkaline phosphatase 158, C- reactive protein 0.34, total protein 10.1, lipase 1:15, cardiac enzymes within normal limits, BNP 14, urine drug screen is positive for opiates, cocaine, THC. Urinalysis shows 80 ketones, moderate leukocyte esterase, 36 WBCs occasional bacteria, culture indicated. Radiology studies were reviewed and remarkable for CT scan of the abdomen and pelvis shows a right adnexal cyst versus tubo-ovarian abscess with findings of pelvic inflammatory disease. The patient had a pelvic examination done by me. The patient's pelvic and abdominal pain is present on the left side of the abdomen. Therefore, I doubt that the patient has a tubo-ovarian abscess. The patient could certainly have a cyst. Patient was given Rocephin 1 g IV. The patient will be given Zithromax 1 g by mouth 1. An ultrasound has been ordered to further evaluate. The patients results were discussed with the patient, including the plan of care. I explained that further testing and/ or monitoring is indicated based on the patients history, examination, and/ or laboratory findings. Therefore, I recommended admission for additional evaluation. The patient expressed understanding and was agreeable with this plan. The patient was admitted to the hospital in guarded condition and sent to a bed under the care of [facility]. Physician Communication Physician Communication The patient's case was d/w Dr. Kern who did agree to admit the patient for continued evaluation and tx at this time. Diagnosis Primary Impression: Nausea, vomiting, and diarrhea Additional Impressions: Withdrawal syndrome Qualified Codes: F11.23 - Opioid dependence with withdrawal Adnexal mass Admitting Information Admitting Physician Requests: Admit Magalis Kohli MD Dec 08, 2016 00:40
[2016-12-08] MEDS ORDERED: LORazepam 2 MG/ML VIAL IV PUSH ONE (00:45)
[2016-12-08] MEDS ORDERED: KETOROLAC TROMETHAMINE 30 MG/ML (IVP) VIAL IV PUSH ONE ×2 (00:45→03:00)
[2016-12-08] MEDS ORDERED: SODIUM CHLOR 0.9% 1000 ML INJ 1,000 ML IV ONE (00:45)
[2016-12-08] MEDS ORDERED: ONDANSETRON HCL 4 MG/2 ML VIAL IV ONE (00:45)
[2016-12-08 00:53] LABS: AUTOMATED NEUTROPHIL # 9.4 TH/MM3 (1.8-7.7); BASOPHIL % 0.4 % (0.0-2.0); EOSINOPHIL % 0.1 % (0.0-4.0); HEMATOCRIT 45.5 % (35.0-46.0); HEMO FLAGS DIFF FINAL; LYMPHOCYTE # 2.2 TH/MM3 (1.0-4.8); MEAN CELL VOLUME 76.8 FL (80.0-100.0); MEAN CORPUSCULAR HEMOGLOBIN 24.4 PG (27.0-34.0); MEAN CORPUSCULAR HGB CONC 31.8 % (32.0-36.0); MONO % 4.4 % (0.0-8.0); NEUT % 77.1 % (16.0-70.0); PLATELET COUNT 304 TH/MM3 (150-450); RED BLOOD COUNT 5.93 MIL/MM3 (4.00-5.30); RED CELL DISTRIBUTION WIDTH 18.7 % (11.6-17.2); WHITE BLOOD COUNT 12.2 TH/MM3 (4.0-11.0)
[2016-12-08 01:06] LABS: ANION GAP 9 MEQ/L (5-15); AST (GOT) 16 U/L (15-37); BICARBONATE 32.4 MEQ/L (21.0-32.0); BLOOD UREA NITROGEN 18 MG/DL (7-18); CHLORIDE 98 MEQ/L (98-107); GLOMERULAR FILTRATION RATE 51 ML/MIN (>89); POTASSIUM 3.1 MEQ/L (3.5-5.1); SODIUM (NA) 139 MEQ/L (136-145)
[2016-12-08 01:10] LABS: ALKALINE PHOSPHATASE 158 U/L (45-117); ALT (GPT) 24 U/L (10-53); TOTAL BILIRUBIN ADULT 0.6 MG/DL (0.2-1.0)
[2016-12-08 01:46] LABS: CREATINE KINASE 49 U/L (26-192)
[2016-12-08 01:49] LABS: BACTERIA, URINE OCC /hpf; BLOOD, URINE NEG (NEG); COMMENT (UR) CULTURE INDICATED; CULTURE IF INDICATED CULTURE INDICATED; GLUCOSE,URINE TRACE mg/dL (NEG); KETONE, URINE 80 mg/dL (NEG); MUCUS URINE MANY /lpf (OCC); NITRITE,URINE NEG (NEG); SQUAMOUS EPITHELIAL CELL URINE 117 /hpf (0-5)
[2016-12-08 01:51] LABS: URINE COLOR RED (YELLW/STRAW)
[2016-12-08] MEDS ORDERED: IOHEXOL 350 MG/ML 10 ML VIAL (for RAD DIAG) IVCONTRAST ONE (01:56)
--- NOTE | 2016-12-08 02:14 | RADRPT ---
EXAM DATE/TIME: 12/08/2016 01:47 [place] COMPARISON: CT ABDOMEN & PELVIS W CONTRAST, October 18, 2016, 22:20. INDICATIONS : Diffuse abdominal pain. IV CONTRAST: 97 cc Omnipaque 350 (iohexol) IV ORAL CONTRAST: No oral contrast ingested. RADIATION DOSE: 9.96 CTDIvol (mGy) MEDICAL HISTORY : Myocardial infarction. Chronic obstructive pulmonary disease. Seizures.Substance abuse. CVA. Asthma. SURGICAL HISTORY : Appendectomy. ENCOUNTER: Initial ACUITY: 1 day PAIN SCALE: 5/10 LOCATION: Bilateral abdomen TECHNIQUE: Volumetric scanning of the abdomen and pelvis was performed. Using automated exposure control and ad justment of the mA and/or kV according to patient size, radiation dose was kept as low as reasonably achievable to obtain optimal diagnostic quality images. DICOM format image data is available electro nically for review and comparison. FINDINGS: Examination of the lung bases demonstrates no abnormality. No pleural fluid is identified. No pulmona ry nodules are present. The liver and spleen are free of focal defects. The gallbladder and pancreas demonstrate no abnormality. The adrenal glands are normal. The kidneys demonstrate no evidence of umer id renal mass or hydronephrosis. No free fluid or abdominal masses are identified. No para-aortic lukasz nopathy is seen. There is a 4.8 x 3 cm right adnexal cyst. The left ovary is slightly enlarged. Fluid is present in th e endometrial cavity with prominent enhancement. The lower uterine segment is also prominent. The rome dder appears normal. No wall thickening or intraluminal masses are identified. CONCLUSION: 1. Right adnexal cyst versus tubo-ovarian abscess with findings of pelvic inflammatory disease. Mohsen Ovalles MD on December 08, 2016 at 2:04 Board Certified Radiologist. This report was verified electronically.
[2016-12-08] MEDS ORDERED: cefTRIAXone INJ 1,000 MG in SODIUM CHLORIDE 0.9% INJ 100 ML IV ONE (03:00)
[2016-12-08] MEDS ORDERED: POTASSIUM CHLORIDE 20 MEQ CONTROLLED RELEASE TAB PO ONE ×2 (03:00→12:00)
[2016-12-08] MEDS ORDERED: ONDANSETRON HCL 4 MG/2 ML VIAL IV PUSH ONE (03:00)
[2016-12-08] MEDS ORDERED: LORazepam 2 MG/ML VIAL IV PUSH PRN (03:15)
[2016-12-08] MEDS ORDERED: LACTULOSE SYRUP 20 GM/30 ML CUP PO PRN (03:15)
[2016-12-08] MEDS ORDERED: SENNOSIDES 8.6 MG TAB PO PRN (03:15)
[2016-12-08] MEDS ORDERED: SODIUM CHLORIDE 0.9% FLUSH 10 ML FLUSH IV FLUSH PRN (03:15)
[2016-12-08] MEDS ORDERED: BISACODYL 10 MG SUPP RECTAL PRN ×2 (03:15)
[2016-12-08] MEDS ORDERED: ACETAMINOPHEN 325 MG TAB PO PRN (03:15)
--- NOTE | 2016-12-08 03:57 | HHI.HP ---
HPI Service [facility] Primary Care Physician No Primary Care Physician Admission Diagnosis Intractable Vomiting, Withdrawal syndrome Diagnoses: (1) Withdrawal syndrome Diagnosis: Principal (2) Hypokalemia Diagnosis: Principal (3) UTI (urinary tract infection) Diagnosis: Principal (4) LUZ (acute kidney injury) Diagnosis: Principal (5) Polysubstance abuse Diagnosis: Principal (6) PID (acute pelvic inflammatory disease) Diagnosis: Principal Travel History International Travel<30 Days: No Contact w/Intl Traveler <30 Da: No Traveled to Known Affected Are: No History of Present Illness This is a 46-year-old female with a PMH of Anxiety, Depression, Bipolar Disorder , h/o Cervical CA, COPD, Hepatitis C, Polysubstance Abuse, h/o Withdrawal Seizure and h/o IVDA who presented to the ER w/ complaints of nausea/vomiting in addition to abdominal pain x3 days. States she was following w/ software computer specialist who was giving her Morphine, but ran out of her Morphine and Klonopin 1 wk ago. States pain was so severe yesterday she had no choice but to inject Dilaudid. Denies fever or chills. On arrival, BP 113/73, HR 73, O2 sat 98% on RA, Afebrile. WBC 12.2. K+ 3.1. Creatinine 1.15, previously 0.80 on 11/15/16. UA positive for UTI. CT Abd/Pelvis w/ right adnexal cyst vs tubo-ovarian abscess w/ PID. S/p Rocephin in ER. Pelvic US pending. Review of Systems Except as stated in HPI: all other systems reviewed are Neg ROS: 14 point review of systems otherwise negative. Past Family Social History Past Medical History PMH: Anxiety, Depression, Bipolar Disorder, h/o Cervical CA, COPD, Hepatitis C , Polysubstance Abuse, h/o Withdrawal Seizure and h/o IVDA Past Surgical History PAST SURGICAL HISTORY: Appendectomy, Left Hand Surgery, Left Foot Surgery Allergies: Coded Allergies: Sulfa (Sulfonamide Antibiotics) (Unverified Allergy, Severe, Rash, 11/17/16 ) *MDRO Multi-Drug Resistant Organism (Verified Adverse Reaction, Unknown, Cleared, 11/17/16) 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 Cleared per Infection Control: MRSA PCR negative - 01/01/2015 & 09/27/2015 magnesium (Unverified Adverse Reaction, Unknown, PRUITIC RASH, 11/17/16) magnesium sulfate (Unverified Adverse Reaction, Unknown, PRUITIC RASH, ) prochlorperazine (Unverified Adverse Reaction, Unknown, ANGINA, 11/17/16) terbutaline (Unverified Adverse Reaction, Unknown, HEART RATE ELEVATES, ) Family History PAST FAMILY HISTORY: Reviewed. No h/o DM or CAD Social History PAST SOCIAL HISTORY: Denies alcohol. Smokes 1/2ppd. +IVDU w/ Dilaudid. + Marijuana. Physical Exam Vital Signs Vital Signs Date Time Temp Pulse Resp B/P (MAP) Pulse Ox O2 Delivery O2 Flow Rate FiO2 12/08/16 00:09 98.9 73 16 113/73 (86) 98 Physical Exam PE: GENERAL: Middle-aged white female, appears uncomfortable. HEENT: PERRLA, EOMI. No scleral icterus or conjunctival pallor. No lid lag or facial droop. CARDIOVASCULAR: Regular rate and rhythm. No obvious murmurs to auscultation. No chest tenderness to palpation. RESPIRATORY: No obvious rhonchi or wheezing. Clear to auscultation. Breath sounds equal bilaterally. GASTROINTESTINAL: Abdomen soft, generalized tenderness to palpation, nondistended. BS normal. MUSCULOSKELETAL: Extremities without clubbing, cyanosis, or edema. No obvious deformities. NEUROLOGICAL: Awake, alert and oriented x4. No focal neurologic deficits. Moving both upper and lower extremities spontaneously. Laboratory Laboratory Tests Test 12/08/16 00:30 12/08/16 01:35 12/08/16 02:55 White Blood Count 12.2 Red Blood Count 5.93 Hemoglobin 14.5 Hematocrit 45.5 Mean Corpuscular Volume 76.8 Mean Corpuscular Hemoglobin 24.4 Mean Corpuscular Hemoglobin Concent 31.8 Red Cell Distribution Width 18.7 Platelet Count 304 Mean Platelet Volume 10.0 Neutrophils (%) (Auto) 77.1 Lymphocytes (%) (Auto) 18.0 Monocytes (%) (Auto) 4.4 Eosinophils (%) (Auto) 0.1 Basophils (%) (Auto) 0.4 Neutrophils # (Auto) 9.4 Lymphocytes # (Auto) 2.2 Monocytes # (Auto) 0.5 Eosinophils # (Auto) 0.0 Basophils # (Auto) 0.0 CBC Comment DIFF FINAL Differential Comment Erythrocyte Sedimentation Rate 1 Blood Urea Nitrogen 18 Creatinine 1.15 Random Glucose 142 Total Protein 10.1 Albumin 5.0 Calcium Level 9.8 Magnesium Level 2.0 Alkaline Phosphatase 158 Aspartate Amino Transf (AST/SGOT) 16 Alanine Aminotransferase (ALT/SGPT) 24 Total Bilirubin 0.6 Sodium Level 139 Potassium Level 3.1 Chloride Level 98 Carbon Dioxide Level 32.4 Anion Gap 9 Estimat Glomerular Filtration Rate 51 Total Creatine Kinase 49 Troponin I LESS THAN 0.02 C-Reactive Protein 0.34 B-Type Natriuretic Peptide 14 Lipase 115 Urine Color RED Urine Turbidity CLOUDY Urine pH 6.0 Urine Specific [place] 1.033 Urine Protein 100 Urine Glucose (UA) TRACE Urine Ketones 80 Urine Occult Blood NEG Urine Nitrite NEG Urine Bilirubin NEG Urine Urobilinogen 4.0 Urine Leukocyte Esterase MOD Urine RBC 3 Urine WBC 36 Urine Squamous Epithelial Cells 117 Urine Amorphous Sediment RARE Urine Bacteria OCC Urine Mucus MANY Microscopic Urinalysis Comment CULTURE INDICATED Clue Cells (Wet Prep) NONE SEEN Vaginal Trichomonas (Wet Prep) NONE SEEN Vaginal Yeast (Wet Prep) NONE SEEN Date/Time Source Procedure Growth Status 12/08/16 01:35 Urine Random Urine Urine Culture Pending Received Result Diagram: 12/08/16 0030 12/08/16 0030 Caprini VTE Risk Assessment Caprini VTE Risk Assessment: No/Low Risk (score <= 1) Caprini Risk Assessment Model Point Value = 1 Point Value = 2 Point Value = 3 Point Value = 5 Age 41-60 Minor surgery BMI > 25 kg/m2 Swollen legs Varicose veins or History of unexplained or recurrent spontaneous Oral contraceptives or hormone replacement Sepsis (< 1 month) Serious lung disease, including pneumonia (< 1 month) Abnormal pulmonary function Acute myocardial infarction Congestive heart failure (< 1 month) History of inflammatory bowel disease Medical patient at bed rest Age 61-74 Arthroscopic surgery Major open surgery (> 45 min) Laparoscopic surgery (> 45 min) Malignancy Confined to bed (> 72 hours) Immobilizing plaster cast Central venous access Age >= 75 History of VTE Family history of VTE Factor V Leiden Prothrombin [id number] Lupus anticoagulant Anticardiolipin antibodies Elevated serum homocysteine Heparin-induced thrombocytopenia Other congenital or acquired thrombophilia Stroke (< 1 month) Elective arthroplasty Hip, pelvis, or leg fracture Acute spinal cord injury (< 1 month) Prophylaxis Regimen Total Risk Factor Score Risk Level Prophylaxis Regimen 0-1 Low Early ambulation 2 Moderate Order ONE of the following: *Sequential Compression Device (SCD) *Heparin 5000 units SQ BID 3-4 Higher Order ONE of the following medications: *Heparin 5000 units SQ TID *Enoxaparin/Lovenox 40 mg SQ daily (WT < 150 kg, CrCl > 30 mL/min) *Enoxaparin/Lovenox 30 mg SQ daily (WT < 150 kg, CrCl > 10-29 mL/min) *Enoxaparin/Lovenox 30 mg SQ BID (WT < 150 kg, CrCl > 30 mL/min) AND/OR *Sequential Compression Device (SCD) 5 or more Highest Order ONE of the following medications: *Heparin 5000 units SQ TID (Preferred with Epidurals) *Enoxaparin/Lovenox 40 mg SQ daily (WT < 150 kg, CrCl > 30 mL/min) *Enoxaparin/Lovenox 30 mg SQ daily (WT < 150 kg, CrCl > 10-29 mL/min) *Enoxaparin/Lovenox 30 mg SQ BID (WT < 150 kg, CrCl > 30 mL/min) AND *Sequential Compression Device (SCD) Assessment and Plan Problem List: (1) Withdrawal syndrome ICD Code: F19.939 - Other psychoactive substance use, unspecified with withdrawal, unspecified (2) LUZ (acute kidney injury) ICD Code: N17.9 - Acute kidney failure, unspecified (3) Hypokalemia ICD Code: E87.6 - Hypokalemia (4) UTI (urinary tract infection) ICD Code: N39.0 - Urinary tract infection, site not specified (5) PID (acute pelvic inflammatory disease) ICD Code: N73.0 - Acute parametritis and pelvic cellulitis (6) Polysubstance abuse ICD Code: F19.10 - Other psychoactive substance abuse, uncomplicated Assessment and Plan A/P: 1. Withdrawal Syndrome: reports following w/ software computer specialist however ran out of Morphine/Klonopin 1wk ago, +IVDU w/ Dilaudid yesterday, h/o Withdrawal Seizure, Seizure Precautions, Ativan prn. Resume Klonopin. 2. LUZ: Creatinine 1.15, previously 0.80 on 11/15/16. IVF for hydration, repeat labs in am. 3. Hypokalemia: K+ 3.1, s/p replacement in ER, will recheck and replace as needed. 4. UTI: U/a w/ UTI, s/p Rocephin in ER, will continue w/ IV Abx. 5. PID: CT Abd/Pelvis w/ right adnexal cyst vs tubo-ovarian abscess w/ PID, Pelvic exam in ER unrevealing. Pelvic US pending, Consult Indoor Plant Technician. Cefoxitin/Doxy 6. Polysubstance Abuse: w/ recent IVDU w/ Dilaudid. Ativan prn. Pt counselled. 7. DVT Prophylaxis: SCD/Teds. 8. Social work for d/c planning as needed. 9. Case discussed w/ ER physician at length. Kamla Kern MD Dec 08, 2016 03:57
[2016-12-08] MEDS ORDERED: AZITHROMYCIN PWD FOR SUSP 1 GM PACKET PO ONE (04:15)
--- NOTE | 2016-12-08 04:51 | RADRPT ---
EXAM DATE/TIME: 12/08/2016 03:21 [place] COMPARISON: CT ABDOMEN & PELVIS W CONTRAST, December 08, 2016, 1:47. INDICATIONS : Torsion. MEDICAL HISTORY : Hypertension. Myocardial infarction. Gastroesophageal reflux disease. COPD. MRSA. Substance abuse. SURGICAL HISTORY : Appendectomy. ENCOUNTER: Subsequent ACUITY: 7-11 months PAIN SCORE: 10/10 LOCATION: Bilateral pelvis MEASUREMENTS: LEFT OVARY: 2.4 x 2.5 x 3.1 cm UTERUS: 10.7 x 5.6 x 5.7 cm ENDOMETRIAL STRIPE: 14 mm RIGHT OVARY: cm FINDINGS: The uterus is normal in size, and shape for the patient's age. No focal masses are identified. The en dometrial stripe is thickened measuring 14 mm. The left ovary appears normal. Normal Doppler flow is present. No free fluid is identified. The right ovary is not visualized. There is a right adnexal cys t measuring 5.8 x 4.7 CM which may reflect tubo-ovarian abscess. This is similar to the CT scan. CONCLUSION: Right adnexal cyst versus abscess Mohsen Ovalles MD on December 08, 2016 at 4:47 Board Certified Radiologist. This report was verified electronically.
[2016-12-08] MEDS: SODIUM CHLOR 0.9% 1000 ML INJ 1,000 ML IV SCH ×2 (04:57→15:59)
[2016-12-08 06:25] LABS: CHLAMYDIA PCR NOT DETECTED (NOT DETECT); NEISSERIA PCR NOT DETECTED (NOT DETECT)
[2016-12-08] MEDS: SODIUM CHLORIDE 0.9% FLUSH 10 ML FLUSH IV FLUSH SCH ×2 (08:43→20:57)
[2016-12-08] MEDS: DOXYCYCLINE HYCLATE 100 MG CAP PO SCH ×2 (08:43→20:57)
[2016-12-08] MEDS ORDERED: clonazePAM 1 MG TAB PO SCH (09:00)
[2016-12-08] MEDS ORDERED: DOCUSATE SODIUM 50 MG/SENNA 8.6 MG TAB PO SCH (09:00)
[2016-12-08] MEDS: ceFOXitin INJ 1 GM in SODIUM CHLORIDE 0.9% INJ 100 ML IV SCH ×3 (09:35→21:00)
[2016-12-08] MEDS: ONDANSETRON HCL 4 MG/2 ML VIAL IVP PRN (09:36)
[2016-12-08] MEDS: GABAPENTIN 300 MG CAP PO SCH ×3 (11:01→17:54)
[2016-12-08] MEDS: FAMOTIDINE 20 MG TAB PO SCH ×2 (11:01→20:57)
[2016-12-08 11:29] LABS: AUTOMATED NEUTROPHIL # 5.2 TH/MM3 (1.8-7.7); BASOPHIL % 0.6 % (0.0-2.0); EOSINOPHIL % 0.6 % (0.0-4.0); HEMATOCRIT 36.2 % (35.0-46.0); HEMO FLAGS DIFF FINAL; LYMPH % 28.6 % (9.0-44.0); LYMPHOCYTE # 2.4 TH/MM3 (1.0-4.8); MEAN CORPUSCULAR HEMOGLOBIN 24.8 PG (27.0-34.0); MEAN CORPUSCULAR HGB CONC 31.8 % (32.0-36.0); MONO % 7.5 % (0.0-8.0); NEUT % 62.7 % (16.0-70.0); PLATELET COUNT 235 TH/MM3 (150-450); RED BLOOD COUNT 4.64 MIL/MM3 (4.00-5.30); RED CELL DISTRIBUTION WIDTH 18.4 % (11.6-17.2); WHITE BLOOD COUNT 8.3 TH/MM3 (4.0-11.0)
[2016-12-08 11:50] LABS: POTASSIUM 2.9 MEQ/L (3.5-5.1)
[2016-12-08] MEDS ORDERED: POTASSIUM CHLOR 10 MEQ PREMIX 100 ML IV ONE (12:30)
--- NOTE | 2016-12-08 13:37 | HHI.PR ---
Subjective Remarks Follow-up for abdominal pain. The patient states she's been having nausea, vomiting, diarrhea, generalized abdominal pain. Symptoms are not improved today. She tried to eat breakfast and states she vomited. She said she had diarrhea all night. She continues to have generalized abdominal discomfort. She denies any dysuria or vaginal discharge. Her last menstrual period was several weeks ago, states her periods are irregular. She denies any fevers, reports subjective chills. Denies any sick contacts or eating any unusual foods. She states she's been out of all of her home medications for the past week because she could not afford to go to her doctors. She sees a doctor where she gets her psychiatric medications including Klonopin and she states she sees a pain management doctor that gives her gabapentin. Objective Vitals Vital Signs Date Time Temp Pulse Resp B/P (MAP) Pulse Ox O2 Delivery O2 Flow Rate FiO2 12/08/16 11:56 98.2 58 16 117/65 (82) 97 12/08/16 10:36 18 12/08/16 08:25 98.7 67 18 101/62 (75) 98 12/08/16 04:29 76 16 143/70 (94) 97 12/08/16 04:25 96.2 56 18 116/63 (80) 98 12/08/16 00:09 98.9 73 16 113/73 (86) 98 I/O 12/07/16 12/07/16 12/07/16 12/08/16 12/08/16 12/08/16 06:59 14:59 22:59 06:59 14:59 22:59 Intake Total 1528 ml Balance 1528 ml Intake Oral 240 ml IV Total 1288 ml # Voids 1 Result Diagram: 12/08/16 1059 12/08/16 1059 Imaging Last Impressions Abdomen/Pelvis/Transvag US 12/08/16 0237 Signed Impressions: Service Date/Time: Thursday, December 08, 2016 03:21 - CONCLUSION: Right adnexal cyst versus abscess Mohsen Ovalles MD Abdomen/Pelvis CT 12/08/16 0044 Signed Impressions: Service Date/Time: Thursday, December 08, 2016 01:47 - CONCLUSION: 1. Right adnexal cyst versus tubo-ovarian abscess with findings of pelvic inflammatory disease. Mohsen Ovalles MD Objective Remarks GENERAL: Well-developed well-nourished. In no acute distress. SKIN: Warm and dry. No lesions noted. HEENT: Normocephalic. Pupils equal and round. Mucous membranes pink and moist. CARDIOVASCULAR: Regular rate and rhythm. No murmur appreciated. RESPIRATORY: No accessory muscle use. Clear to auscultation. Breath sounds equal bilaterally. GASTROINTESTINAL: Abdomen soft, nondistended. Bowel sounds x4. Generalized tenderness to palpation. MUSCULOSKELETAL: No obvious deformities. No clubbing or cyanosis. No edema. NEUROLOGICAL: Awake and alert. No focal neurological deficits. Moves upper and lower extremities spontaneously. Normal speech. PSYCHIATRIC: Slightly anxious mood and affect; insight and judgment fair to normal. A/P Problem List: (1) LUZ (acute kidney injury) ICD Code: N17.9 - Acute kidney failure, unspecified Status: Acute (2) Hypokalemia ICD Code: E87.6 - Hypokalemia Status: Acute (3) PID (acute pelvic inflammatory disease) ICD Code: N73.0 - Acute parametritis and pelvic cellulitis Status: Acute (4) Polysubstance abuse ICD Code: F19.10 - Other psychoactive substance abuse, uncomplicated Status: Chronic Assessment and Plan 46-year-old female with a PMH of Anxiety, Depression, Bipolar Disorder, h/o Cervical CA, COPD, Hepatitis C, Polysubstance Abuse, h/o Withdrawal Seizure and h/o IVDA who presented w/ complaints of nausea/vomiting/diarrhea/abdominal pain x3 days. Nausea/vomiting/diarrhea/abdominal pain: Patient is not tolerating oral intake. Symptoms may be secondary to Domain Architect etiology as below, medication/substance abuse withdrawal, or underlying GI etiology. -Clear liquids. Antiemetics as needed. IVF. -Consult GI -IV Protonix -Ativan prn for possible withdrawal symptoms. -Oxycodone as needed for pain, caution with substance abuse Possible PID or tubo-ovarian abscess: Pelvic exam performed in the ED; negative for chlamydia, gonorrhea, clue cells, Trichomonas, yeast. Reviewed: Abdominal CT showed right adnexal cyst vs tubo-ovarian abscess with findings of PID. Transvaginal ultrasound showed right adnexal cyst vs abscess. WBC 12.2, decreased to normal limits. Afebrile. -CLOTH COLORER consulted, appreciate input -Continue on cefoxitin and doxycycline pending CLOTH COLORER input. LUZ: Creatinine 1.15, previously 0.80 on 11/15/16. Given IVF for hydration, creatinine persistently 1.14 with continued vomiting. Repeat labs in am. Hypokalemia: Despite oral replacement in the ED, potassium decreased again to 2.9. Magnesium within normal limits. Replace orally and by IV. PID: CT Abd/Pelvis w/ right adnexal cyst vs tubo-ovarian abscess w/ PID, Pelvic exam in ER unrevealing. Pelvic US pending, Consult Domain Architect. Cefoxitin/Doxy Polysubstance Abuse: Admits to recent IVDU w/ Dilaudid. UDS positive for opiates, cocaine, and cannabis. Patient counseling. Chronic pain: Reports she takes gabapentin as outpatient, will resume at renally adjusted dose. E Forsce demonstrates no standing control prescriptions. Anxiety: Patient is a bit sleepy, decrease Vistaril dose. Continue Zyprexa. Patient reports she is on Klonopin, although this is not present on E Forsce. Abnormal UA: UA with 117 squamous epithelial cells, contaminated specimen is of no value. Denies any urinary symptoms. On antibiotics as above. DVT Prophylaxis: SCD/Teds. Discharge Planning Discharge pending specialists input and further clinical improvement. Van Hanson Dec 08, 2016 13:37
--- NOTE | 2016-12-08 14:35 | PD.CONS ---
HPI History of Present Illness This is a 46 year old female with hx IVDU, hep c, substance abuse, gastric ulcer who presented with n/v, diarrhea, abd pain starting 2 days ago. Abd pain is in LLQ. Cites hematemesis yesterday. No blood in stool or black tarry stool. Had colonoscopy 5 year ago, does not know who did it or findings. Never had EGD. She threw up "a little bit today" but denies feeling nauseous at this time. Denies sick contacts, recent travel, abx use. Admits fevers. Limited hx , pt lethargic and does not speak clearly. CT and US showing adnexal cyst vs tubo ovarian abscess and PID. Per EMR she recently injected dilaudid. Tox screen pos for cocaine, marijuana, opiates. (Vivi López) PFSH Past Medical History PMH: Anxiety, Depression, Bipolar Disorder, h/o Cervical CA, COPD, Hepatitis C , Polysubstance Abuse, h/o Withdrawal Seizure and h/o IVDA Past Surgical History PAST SURGICAL HISTORY: Appendectomy, Left Hand Surgery, Left Foot Surgery (Vivi López) Coded Allergies: Sulfa (Sulfonamide Antibiotics) (Unverified Allergy, Severe, Rash, 11/17/16 ) magnesium (Unverified Adverse Reaction, Unknown, PRUITIC RASH, 11/17/16) magnesium sulfate (Unverified Adverse Reaction, Unknown, PRUITIC RASH, ) prochlorperazine (Unverified Adverse Reaction, Unknown, ANGINA, 11/17/16) terbutaline (Unverified Adverse Reaction, Unknown, HEART RATE ELEVATES, ) Family History PAST FAMILY HISTORY: Reviewed. No h/o DM or CAD Social History PAST SOCIAL HISTORY: Denies alcohol. Smokes 1/2ppd. +IVDU w/ Dilaudid. + Marijuana. + cocaine (Vivi López) Review of Systems Constitutional: COMPLAINS OF: Fever Gastrointestinal: COMPLAINS OF: Abdominal pain, Diarrhea, Nausea, Vomiting, Hematemesis, DENIES: Black stools, Bloody stools, Constipation ROS largely noncontributory (Vivi López) GI Exam Vitals I&O Vital Signs Date Time Temp Pulse Resp B/P (MAP) Pulse Ox O2 Delivery O2 Flow Rate FiO2 12/08/16 11:56 98.2 58 16 117/65 (82) 97 12/08/16 10:36 18 12/08/16 08:25 98.7 67 18 101/62 (75) 98 12/08/16 04:29 76 16 143/70 (94) 97 12/08/16 04:25 96.2 56 18 116/63 (80) 98 12/08/16 00:09 98.9 73 16 113/73 (86) 98 I/O 12/07/16 12/07/16 12/07/16 12/08/16 12/08/16 12/08/16 07:00 15:00 23:00 07:00 15:00 23:00 Intake Total 1528 ml Balance 1528 ml Intake Oral 240 ml IV Total 1288 ml # Voids 1 Imaging Last Impressions Abdomen/Pelvis/Transvag US 12/08/16 0237 Signed Impressions: Service Date/Time: Thursday, December 08, 2016 03:21 - CONCLUSION: Right adnexal cyst versus abscess Mohsen Ovalles MD Abdomen/Pelvis CT 12/08/16 0044 Signed Impressions: Service Date/Time: Thursday, December 08, 2016 01:47 - CONCLUSION: 1. Right adnexal cyst versus tubo-ovarian abscess with findings of pelvic inflammatory disease. Mohsen Ovalles MD Laboratory Test 12/08/16 00:30 12/08/16 01:35 12/08/16 02:55 12/08/16 10:59 White Blood Count 12.2 TH/MM3 8.3 TH/MM3 Red Blood Count 5.93 MIL/MM3 4.64 MIL/MM3 Hemoglobin 14.5 GM/DL 11.5 GM/DL Hematocrit 45.5 % 36.2 % Mean Corpuscular Volume 76.8 FL 78.0 FL Mean Corpuscular Hemoglobin 24.4 PG 24.8 PG Mean Corpuscular Hemoglobin Concent 31.8 % 31.8 % Red Cell Distribution Width 18.7 % 18.4 % Platelet Count 304 TH/MM3 235 TH/MM3 Mean Platelet Volume 10.0 FL 9.8 FL Neutrophils (%) (Auto) 77.1 % 62.7 % Lymphocytes (%) (Auto) 18.0 % 28.6 % Monocytes (%) (Auto) 4.4 % 7.5 % Eosinophils (%) (Auto) 0.1 % 0.6 % Basophils (%) (Auto) 0.4 % 0.6 % Neutrophils # (Auto) 9.4 TH/MM3 5.2 TH/MM3 Lymphocytes # (Auto) 2.2 TH/MM3 2.4 TH/MM3 Monocytes # (Auto) 0.5 TH/MM3 0.6 TH/MM3 Eosinophils # (Auto) 0.0 TH/MM3 0.0 TH/MM3 Basophils # (Auto) 0.0 TH/MM3 0.0 TH/MM3 CBC Comment DIFF FINAL DIFF FINAL Differential Comment Erythrocyte Sedimentation Rate 1 mm/hr Blood Urea Nitrogen 18 MG/DL 16 MG/DL Creatinine 1.15 MG/DL 1.14 MG/DL Random Glucose 142 MG/DL 103 MG/DL Total Protein 10.1 GM/DL Albumin 5.0 GM/DL Calcium Level 9.8 MG/DL 8.4 MG/DL Magnesium Level 2.0 MG/DL Alkaline Phosphatase 158 U/L Aspartate Amino Transf (AST/SGOT) 16 U/L Alanine Aminotransferase (ALT/SGPT) 24 U/L Total Bilirubin 0.6 MG/DL Sodium Level 139 MEQ/L 142 MEQ/L Potassium Level 3.1 MEQ/L 2.9 MEQ/L Chloride Level 98 MEQ/L 105 MEQ/L Carbon Dioxide Level 32.4 MEQ/L 29.0 MEQ/L Anion Gap 9 MEQ/L 8 MEQ/L Estimat Glomerular Filtration Rate 51 ML/MIN 52 ML/MIN Total Creatine Kinase 49 U/L Troponin I LESS THAN 0.02 NG/ML C-Reactive Protein 0.34 MG/DL B-Type Natriuretic Peptide 14 PG/ML Lipase 115 U/L Urine Color RED Urine Turbidity CLOUDY Urine pH 6.0 Urine Specific [place] 1.033 Urine Protein 100 mg/dL Urine Glucose (UA) TRACE mg/dL Urine Ketones 80 mg/dL Urine Occult Blood NEG Urine Nitrite NEG Urine Bilirubin NEG Urine Urobilinogen 4.0 MG/DL Urine Leukocyte Esterase MOD Urine RBC 3 /hpf Urine WBC 36 /hpf Urine Squamous Epithelial Cells 117 /hpf Urine Amorphous Sediment RARE Urine Bacteria OCC /hpf Urine Mucus MANY /lpf Microscopic Urinalysis Comment CULTURE INDICATED Urine Opiates Screen POS Urine Barbiturates Screen NEG Urine Amphetamines Screen NEG Urine Benzodiazepines Screen NEG Urine Cocaine Screen POS Urine Cannabinoids Screen POS Clue Cells (Wet Prep) NONE SEEN Vaginal Trichomonas (Wet Prep) NONE SEEN Vaginal Yeast (Wet Prep) NONE SEEN Chlamydia trachomatis DNA (PCR) NOT DETECTED Neisseria gonorrhoeae DNA (PCR) NOT DETECTED Date/Time Source Procedure Growth Status 12/08/16 01:35 Urine Random Urine Urine Culture Pending Received Physical Examination HEENT: normocephalic; atraumatic; no jaundice. CHEST: CTA CARDIAC: RRR ABDOMEN: Soft, nondistended, LLQ TTP; no hepatosplenomegaly; bowel sounds are present in all four quadrants. EXTREMITIES: No clubbing, cyanosis, or edema. SKIN: Normal; no rash; no jaundice. TALK SHOW HOST: lethargic (Vivi López) Assessment and Plan Plan ASSESSMENT - n/v/diarrhea, LLQ pain - unclear etiology onset [address] no GI abnormality, showing adnexal cyst vs tubo-ovarian abscess with PID on right side , on abx had colonoscopy 5 years ago, no further details, not sure if she's had EGD. cites hx gastric ulcer. of note tox screen pos for cocaine, marijuana, opiates; per EMR injected dilaudid - rectal burning - in last few days since having diarrhea. admits hemorrhoids. - ?hematemesis - admits episode red blood in emesis yesterday, none prior or since. PLAN - stool cx - anusol - await level glass forming machine operator consult - EGD with flex sig tomorrow - SSE in am - obtain consent - NPO after midnight - monitor labs - further recs to follow This pt seen by myself and Dr Montejo and this note is written on his behalf (Vivi López) Physician Comments Patient seen and examined Agree with above Continue with current supportive care Monitor labs We will plan on an EGD and a flexible sigmoidoscopy tomorrow Await stool studies (Evan Montejo MD) Vivi López Dec 08, 2016 14:35 Evan Montejo MD Dec 08, 2016 23:11
[2016-12-08] MEDS: PANTOPRAZOLE SODIUM 40 MG VIAL IV PUSH SCH (15:33)
[2016-12-08] MEDS: LORazepam 0.5 MG TAB PO PRN (17:54)
[2016-12-08] MEDS: HYDROCORTISONE ACETATE 25 MG SUPP RECTAL SCH (20:58)
--- NOTE | 2016-12-08 22:06 | EKG ---
Date Performed: 12/08/2016 Time Performed: 00:56:11 PTAGE: 46 years EKG: Sinus rhythm WITH MARKED SINUS ARRHYTHMIA MODERATE VOLTAGE CRITERIA FOR LVH, CONSIDER NORMAL VARIANT BORDERLINE E CG PREVIOUS TRACING : 08/15/2016 17.41 Compared to prior tracing no significant change DOCTOR: Rene Hinson Interpretating Date/Time 12/08/2016 22:05:09
[2016-12-09] VITALS (7 sets, daily range): BP systolic 126–156; BP diastolic 66–110; PULSE 45–74; RESP 16–18; TEMP 97.7–98.6; O2SAT 96–100
[2016-12-09] MEDS: ceFOXitin INJ 1 GM in SODIUM CHLORIDE 0.9% INJ 100 ML IV SCH ×4 (03:48→23:46)
[2016-12-09] MEDS: ONDANSETRON HCL 4 MG/2 ML VIAL IVP PRN ×2 (06:00→11:46)
[2016-12-09] MEDS: SODIUM CHLOR 0.9% 1000 ML INJ 1,000 ML IV SCH ×3 (06:01→23:55)
[2016-12-09] MEDS: LORazepam 0.5 MG TAB PO PRN ×2 (06:45→15:16)
[2016-12-09] MEDS: SODIUM CHLORIDE 0.9% FLUSH 10 ML FLUSH IV FLUSH SCH ×2 (09:00→21:00)
[2016-12-09 09:29] LABS: ANION GAP 7 MEQ/L (5-15); AST (GOT) 19 U/L (15-37); BICARBONATE 24.2 MEQ/L (21.0-32.0); BLOOD UREA NITROGEN 11 MG/DL (7-18); CHLORIDE 111 MEQ/L (98-107); GLOMERULAR FILTRATION RATE 85 ML/MIN (>89); POTASSIUM 3.9 MEQ/L (3.5-5.1); SODIUM (NA) 142 MEQ/L (136-145)
[2016-12-09 09:39] LABS: AUTOMATED NEUTROPHIL # 3.5 TH/MM3 (1.8-7.7); BASOPHIL # 0.1 TH/MM3 (0-0.2); EOSINOPHIL # 0.1 TH/MM3 (0-0.4); EOSINOPHIL % 2.1 % (0.0-4.0); HEMATOCRIT 41.3 % (35.0-46.0); HEMO FLAGS DIFF FINAL; LYMPH % 40.2 % (9.0-44.0); LYMPHOCYTE # 2.7 TH/MM3 (1.0-4.8); MEAN CELL VOLUME 79.4 FL (80.0-100.0); MEAN CORPUSCULAR HEMOGLOBIN 24.8 PG (27.0-34.0); MEAN CORPUSCULAR HGB CONC 31.2 % (32.0-36.0); MONO % 5.6 % (0.0-8.0); NEUT % 51.1 % (16.0-70.0); PLATELET COUNT 220 TH/MM3 (150-450); WHITE BLOOD COUNT 6.7 TH/MM3 (4.0-11.0)
[2016-12-09 09:40] LABS: ALKALINE PHOSPHATASE 112 U/L (45-117); ALT (GPT) 18 U/L (10-53); TOTAL BILIRUBIN ADULT 0.3 MG/DL (0.2-1.0)
--- NOTE | 2016-12-09 09:50 | PD.PROCEDR ---
GI Procedure REFERRING PHYSICIAN Dr. Garay PROCEDURE PERFORMED EGD with biopsy followed by a flexible sigmoidoscopy with biopsy INDICATION FOR PROCEDURE Hematemesis, diarrhea, abdominal pain, abnormal CT PROCEDURE: The procedure, risks and benefits were discussed with Ms. Pineda and informed consent was obtained. Anesthesia sedated her with Diprivan. She was placed in the left lateral decubitus position. EGD: The Pentax videoscope was introduced through the oropharynx and advanced to the second portion of the duodenum under direct visualization. Retroflexion was performed in the stomach. FINDINGS: Esophagus there was distal esophageal mucosal erythema with superficial ulceration and this was biopsied this could be a [place]-Barriga tear just reflux esophagitis it's unclear at this point Stomach there was a small hiatal hernia there was also patchy erythema in the antrum no ulcerations or erosions the rest of the stomach was unremarkable and biopsies were taken Duodenum this too appeared to be unremarkable with normal limits biopsies were taken for further evaluation Flexible Sigmoidoscopy: The Pentax videoscope was introduced through the rectum and advanced to the descending colon. Retroflexion was performed in the rectum. Colonic prep was poor FINDINGS: As the scope was slowly withdrawn colonic mucosa was carefully inspected this appeared to be unremarkable with normal limits although the evaluation was incomplete due to poor prep. Biopsies were taken from the descending colon for further evaluation of diarrhea ESTIMATED BLOOD LOSS: None SPECIMENS REMOVED: Esophageal, gastric, duodenal, descending colon biopsies COMPLICATIONS: None IMPRESSION: Esophagitis Hiatal hernia Gastritis Unremarkable limited flexible sigmoidoscopy due to poor prep PLAN: Await biopsies Continue PPI Advance diet Continue with current supportive care Monitor labs Evan Montejo MD Dec 09, 2016 09:50
--- NOTE | 2016-12-09 10:31 | HHI.PR ---
Subjective Remarks Patient seen this morning. Reports that abdominal pain continues very severe. Denies any chest pain or shortness of breath. A colonoscopy this morning with hiatal hernia, gastritis, poor prep on colonoscopy. Patient's fianc in room. Patient gives permission to discuss medical conditions with fianc outside room. Objective Vital Signs Date Time Temp Pulse Resp B/P (MAP) Pulse Ox O2 Delivery O2 Flow Rate FiO2 12/09/16 09:55 98.6 53 20 141/90 (107) 99 12/09/16 09:03 12/09/16 08:00 97.7 72 18 156/97 (116) 96 12/09/16 03:11 45 18 128/67 (87) 100 12/09/16 00:38 98.6 47 18 127/66 (86) 96 12/08/16 19:42 98.4 65 18 108/67 (81) 95 12/08/16 16:06 97.9 73 16 112/75 (87) 97 12/08/16 11:56 98.2 58 16 117/65 (82) 97 12/08/16 10:36 18 I/O 12/08/16 12/08/16 12/08/16 12/09/16 12/09/16 12/09/16 07:00 15:00 23:00 07:00 15:00 23:00 Intake Total 1528 ml 100 ml Balance 1528 ml 100 ml Intake Oral 240 ml IV Total 1288 ml 100 ml # Voids 1 Result Diagram: 12/09/1681212/09/16812 Objective Remarks GENERAL: Patient sitting up on commode. Appears uncomfortable and in tears. SKIN: Warm and dry. HEAD: Normocephalic. EYES: No scleral icterus. No injection or drainage. NECK: Supple, trachea midline. No JVD. CARDIOVASCULAR: Regular rate and rhythm without murmurs, gallops, or rubs. RESPIRATORY: Breath sounds equal bilaterally. No accessory muscle use. GASTROINTESTINAL: Abdomen soft, left lower quadrant tenderness to palpation. No rebound or guarding. MUSCULOSKELETAL: No cyanosis, or edema. BACK: Nontender without obvious deformity. No CVA tenderness. A/P Assessment and Plan 46-year-old female with a PMH of Anxiety, Depression, Bipolar Disorder, h/o Cervical CA, COPD, Hepatitis C, Polysubstance Abuse, h/o Withdrawal Seizure and h/o IVDA who presented w/ complaints of nausea/vomiting/diarrhea/abdominal pain x3 days. //Nausea/vomiting/diarrhea/abdominal pain: Patient is not tolerating oral intake. Symptoms may be secondary to Phys Ther etiology as below, medication/ substance abuse withdrawal, or underlying GI etiology. -Clear liquids. Antiemetics as needed. IVF. -Consult GI -IV Protonix -Ativan prn for possible withdrawal symptoms. -Oxycodone as needed for pain, caution with substance abuse = 12/09. Patient with significant pain after colonoscopy. We'll order by mouth Dilaudid 1. With results of GI biopsies. //Possible PID or tubo-ovarian abscess: Pelvic exam performed in the ED; negative for chlamydia, gonorrhea, clue cells, Trichomonas, yeast. Reviewed: Abdominal CT showed right adnexal cyst vs tubo-ovarian abscess with findings of PID. Transvaginal ultrasound showed right adnexal cyst vs abscess. WBC 12.2, decreased to normal limits. Afebrile. -HOUSEHOLD REFRIGERATION MECHANIC consulted, appreciate input -Continue on cefoxitin and doxycycline pending HOUSEHOLD REFRIGERATION MECHANIC input. = 12/09. Await gynecology consultation. Continue antibiotics. //LUZ: Creatinine 1.15, previously 0.80 on 11/15/16. Given IVF for hydration, creatinine persistently 1.14 with continued vomiting. Repeat labs in am. = 12/09. Creatinine 0.7. Appears resolved. //Hypokalemia: Despite oral replacement in the ED, potassium decreased again to 2.9. Magnesium within normal limits. Replace orally and by IV. = 12/09. Potassium 3.9 from 2.9. Resolved after replacement. //Polysubstance Abuse: Admits to recent IVDU w/ Dilaudid. UDS positive for opiates, cocaine, and cannabis. Patient counseling. //Chronic pain: Reports she takes gabapentin as outpatient, will resume at renally adjusted dose. Martina Galindo demonstrates no standing control prescriptions. //Anxiety: Patient is a bit sleepy, decrease Vistaril dose. Continue Zyprexa. Patient reports she is on Klonopin, although this is not present on E Arvindce. //Abnormal UA: UA with 117 squamous epithelial cells, contaminated specimen is of no value. Denies any urinary symptoms. On antibiotics as above. = 12/09. Urine culture continues pending. Patient is on antibiotics nonetheless for PID. DVT Prophylaxis: SCD/Teds. Discharge Planning Patient is self-pay Pending gynecology evaluation. Hao Garay MD Dec 09, 2016 10:31
--- NOTE | 2016-12-09 10:36 | PD.CONS ---
HPI Travel History International Travel<30 Days: No Contact w/Intl Traveler<30Days: No Known Affected Area: No Allergies-Medications (Allergen,Severity, Reaction): Coded Allergies: Sulfa (Sulfonamide Antibiotics) (Unverified Allergy, Severe, Rash, 11/17/16 ) magnesium (Unverified Adverse Reaction, Unknown, PRUITIC RASH, 11/17/16) magnesium sulfate (Unverified Adverse Reaction, Unknown, PRUITIC RASH, ) prochlorperazine (Unverified Adverse Reaction, Unknown, ANGINA, 11/17/16) terbutaline (Unverified Adverse Reaction, Unknown, HEART RATE ELEVATES, ) Home Meds Active Scripts Gabapentin (Gabapentin) 600 Mg Tab, 1200 MG PO BID, #60 TAB 0 Refills Prov:Andres Cordova MD 04/30/16 Reported Medications Clonidine (Clonidine) 0.3 Mg Tab, 0.3 MG PO TID for Blood Pressure Management, # 60 TAB 0 Refills 12/08/16 Olanzapine (Zyprexa) 15 Mg Tab, 15 MG PO DAILY, #30 TAB 0 Refills 11/17/16 Clonazepam (Klonopin) 2 Mg Tab, 1 MG PO TID, #60 TAB 0 Refills 07/08/16 Hydroxyzine Pamoate (Vistaril) 50 Mg Cap, 100 MG PO BID, CAP 0 Refills 01/14/16 Discontinued Scripts Chlorhexidine Gluconate (Mouth) Liq (Peridex Liq) 0.12% Soln, 15 ML SWISH-SPIT BID for 14 Days, #420 ML 0 Refills Prov:Adwoa Hurtado 11/17/16 Hydrocodone-Acetaminophen (Lortab) 5-325 Mg Tab, 1 TAB PO Q6H Y for PAIN GREATER THAN 6, #15 TAB 0 Refills Prov:Adwoa Hurtado 11/17/16 Clindamycin (Clindamycin) 300 Mg Cap, 300 MG PO Q6H for Infection for 10 Days, # 40 CAP 0 Refills Prov:Adwoa uHrtado 11/17/16 Ibuprofen (Ibuprofen) 800 Mg Tab, 800 MG PO Q8H Y for Pain/Inflammation, #15 TAB 0 Refills Prov:Elvis Ohara MD 11/15/16 Amoxicillin-Clavulanate (Augmentin) 875-125 Mg Tab, 1 TAB PO BID for Infection for 7 Days, #14 TAB 0 Refills Prov:Elvis Ohara MD 11/15/16 Physical Exam Vital Signs Date Time Temp Pulse Resp B/P (MAP) Pulse Ox O2 Delivery O2 Flow Rate FiO2 12/09/16 09:55 98.6 53 20 141/90 (107) 99 12/09/16 09:03 12/09/16 08:00 97.7 72 18 156/97 (116) 96 12/09/16 03:11 45 18 128/67 (87) 100 12/09/16 00:38 98.6 47 18 127/66 (86) 96 12/08/16 19:42 98.4 65 18 108/67 (81) 95 12/08/16 16:06 97.9 73 16 112/75 (87) 97 12/08/16 11:56 98.2 58 16 117/65 (82) 97 Narrative GENERAL: Well-nourished, well-developed patient. SKIN: Warm and dry. HEAD: Normocephalic and atraumatic. EYES: No scleral icterus. No injection or drainage. ENT: No nasal drainage noted. Mucous membranes pink. Airway patent. NECK: Supple, trachea midline. No JVD. CARDIOVASCULAR: Regular rate and rhythm without murmurs, gallops, or rubs. RESPIRATORY: Breath sounds equal bilaterally. No accessory muscle use. BREASTS: Bilateral exam showed no masses , no retractions, no nipple discharge. ABDOMEN/GI: Abdomen soft, non-tender, bowel sounds present, no rebound, no guarding Gravid to [-] weeks size Fundal Height: [-] GENITOURINARY: External Genitalia: intact and normal in appearance BUS glands: [-] Cervix: [-] Dilatation: [-] Effacement: [-] Station: [-] Presentation: [-] Membranes: [intact or ruptured] Uterine Contractions: [-] FHT's: Category: [-] Baseline: [-] Reactive: [-] Variability: [-] Decels: [-] EXTREMITIES: No cyanosis or edema. BACK: Nontender without obvious deformity. No CVA tenderness. NEUROLOGICAL: Awake and alert. Motor and sensory grossly within normal limits. Five out of 5 muscle strength in all muscle groups. Normal speech. Data Data Orders Orders Potassium Chloride (Kcl) (12/08/16 12:00) Potassium Chlor 10 Meq Premix (Kcl 10 Me (12/08/16 12:30) Oxycodone (Roxicodone) (12/08/16 13:00) Consult Gastroenterology (12/08/16 ) Diet Clear Liquid (12/08/16 Lunch) Pantoprazole Inj (Protonix Inj) (12/08/16 15:00) (Hub Use Only)Inp Phy Cons/Ref (12/08/16 ) Lorazepam (Ativan) (12/08/16 13:30) Hydroxyzine Pamoate (Vistaril) (12/08/16 18:00) Enteric Path (Stool) (12/08/16 14:39) Stool Ova And Parasite Screen (12/08/16 14:39) Specimen To Be Collected PRN (12/08/16 14:39) Specimen To Be Collected PRN (12/08/16 14:39) Hydrocortisone Supp (Hemorrhoidal Hc Sup (12/08/16 21:00) Npo After Midnight W/ Po Meds (12/09/16 Breakfast) Consent (12/08/16 15:59) Enema Administration (12/09/16 07:00) ^ Other Nursing Orders (12/08/16 17:08) Bucket, Enema Cleansing Ea (12/09/16 04:01) Panendo (12/09/16 ) Sigmoidoscopy (12/09/16 ) Diet Heart Healthy (12/09/16 Lunch) Cbc No Diff, Includes Plts (12/10/16 06:00) ^ Other Nursing Orders (12/09/16 10:16) Hydromorphone (Dilaudid) (12/09/16 10:30) Labs Laboratory Tests Test 12/08/16 10:59 12/09/16 08:13 White Blood Count 8.3 6.7 Red Blood Count 4.64 5.20 Hemoglobin 11.5 12.9 Hematocrit 36.2 41.3 Mean Corpuscular Volume 78.0 79.4 Mean Corpuscular Hemoglobin 24.8 24.8 Mean Corpuscular Hemoglobin Concent 31.8 31.2 Red Cell Distribution Width 18.4 19.0 Platelet Count 235 220 Mean Platelet Volume 9.8 10.4 Neutrophils (%) (Auto) 62.7 51.1 Lymphocytes (%) (Auto) 28.6 40.2 Monocytes (%) (Auto) 7.5 5.6 Eosinophils (%) (Auto) 0.6 2.1 Basophils (%) (Auto) 0.6 1.0 Neutrophils # (Auto) 5.2 3.5 Lymphocytes # (Auto) 2.4 2.7 Monocytes # (Auto) 0.6 0.4 Eosinophils # (Auto) 0.0 0.1 Basophils # (Auto) 0.0 0.1 CBC Comment DIFF FINAL DIFF FINAL Differential Comment Blood Urea Nitrogen 16 11 Creatinine 1.14 0.74 Random Glucose 103 89 Calcium Level 8.4 8.4 Sodium Level 142 142 Potassium Level 2.9 3.9 Chloride Level 105 111 Carbon Dioxide Level 29.0 24.2 Anion Gap 8 7 Estimat Glomerular Filtration Rate 52 85 Total Protein 7.7 Albumin 3.6 Alkaline Phosphatase 112 Aspartate Amino Transf (AST/SGOT) 19 Alanine Aminotransferase (ALT/SGPT) 18 Total Bilirubin 0.3 Date/Time Source Procedure Growth Status 12/08/16 01:35 Urine Random Urine Urine Culture Pending Received MDM Admitting diagnosis: Intractable Vomiting, Withdrawal syndrome Daniela Riley MD R1 Dec 09, 2016 10:36
[2016-12-09] MEDS ORDERED: HYDROmorphone HCL 4 MG TAB PO ONE (11:00)
[2016-12-09] MEDS: GABAPENTIN 300 MG CAP PO SCH ×3 (11:16→20:12)
[2016-12-09] MEDS: FAMOTIDINE 20 MG TAB PO SCH ×2 (11:16→23:51)
[2016-12-09] MEDS: DOXYCYCLINE HYCLATE 100 MG CAP PO SCH ×2 (11:17→23:51)
[2016-12-09] MEDS: HYDROCORTISONE ACETATE 25 MG SUPP RECTAL SCH ×2 (11:18→23:51)
[2016-12-09] MEDS ORDERED: PROPOFOL 200 MG/20 ML AMP IV ONE (12:00)
[2016-12-09] MEDS ORDERED: ONDANSETRON HCL 4 MG/2 ML VIAL IV PUSH ONE (12:00)
[2016-12-09] MEDS ORDERED: LIDOCAINE HCL 1% PF 5 ML AMPULE OTHER ONE (12:00)
--- NOTE | 2016-12-09 15:01 | PD.CONS ---
HPI Chief Complaint R ov cyst on US Date Seen: Dec 09, 2016 Time Seen: 14:49 Travel History International Travel<30 Days: No Contact w/Intl Traveler<30Days: No Known Affected Area: No History of Present Illness HPI Pt is a 46y/o who presented to the ED with c/o intractable vomiting after smoking MJ which was "laced with cocaine". As part of her workup for abdominal pain, she had an US which demonstrated a R ov cyst. DOUGH BRAKE MACHINE OPERATOR was consulted. Pt reports a 7yr h/o pelvic problems. She states that she was told that she has "fibroids" and that one is falling out of her vagina. She previously was seeing an OBGYN but has not in many years and has not had a pap. She has a remote h/o chlamydia with her first many years ago. She states that cycles are irregular (sometimes 2 in a month and sometimes skipping months). She bleeds 5-7d. She is s/p BTL for contraception. She reports chronic urinary problems, having to "force" herself to pee by pushing. She also reports a h/o colitis. Para: 7 : 10 History Past Medical History Narrative Medical colitis poly substance abuse Obstetric History Obstetric History OB: x7 (one stillbirth at 30wks, 2 , 4 fullterm) TAB x1 SAB x1 ectopic x1 DOUGH BRAKE MACHINE OPERATOR: s/p BTL h/o CT remotely irregular cycles per HPI "fibroids" Family History Family History: Negative Social History Alcohol Use: Yes Tobacco Use: Yes Substance Abuse: Yes Allergies-Medications (Allergen,Severity, Reaction): Coded Allergies: Sulfa (Sulfonamide Antibiotics) (Unverified Allergy, Severe, Rash, 11/17/16 ) magnesium (Unverified Adverse Reaction, Unknown, PRUITIC RASH, 11/17/16) magnesium sulfate (Unverified Adverse Reaction, Unknown, PRUITIC RASH, ) prochlorperazine (Unverified Adverse Reaction, Unknown, ANGINA, 11/17/16) terbutaline (Unverified Adverse Reaction, Unknown, HEART RATE ELEVATES, ) Home Meds Active Scripts Gabapentin (Gabapentin) 600 Mg Tab, 1200 MG PO BID, #60 TAB 0 Refills Prov:Andres Cordova MD 04/30/16 Reported Medications Clonidine (Clonidine) 0.3 Mg Tab, 0.3 MG PO TID for Blood Pressure Management, # 60 TAB 0 Refills 12/08/16 Olanzapine (Zyprexa) 15 Mg Tab, 15 MG PO DAILY, #30 TAB 0 Refills 11/17/16 Clonazepam (Klonopin) 2 Mg Tab, 1 MG PO TID, #60 TAB 0 Refills 07/08/16 Hydroxyzine Pamoate (Vistaril) 50 Mg Cap, 100 MG PO BID, CAP 0 Refills 01/14/16 Discontinued Scripts Chlorhexidine Gluconate (Mouth) Liq (Peridex Liq) 0.12% Soln, 15 ML SWISH-SPIT BID for 14 Days, #420 ML 0 Refills Prov:Adwoa Hurtado 11/17/16 Hydrocodone-Acetaminophen (Lortab) 5-325 Mg Tab, 1 TAB PO Q6H Y for PAIN GREATER THAN 6, #15 TAB 0 Refills Prov:Adwoa Hurtado 11/17/16 Clindamycin (Clindamycin) 300 Mg Cap, 300 MG PO Q6H for Infection for 10 Days, # 40 CAP 0 Refills Prov:Adwoa Hurtado 11/17/16 Ibuprofen (Ibuprofen) 800 Mg Tab, 800 MG PO Q8H Y for Pain/Inflammation, #15 TAB 0 Refills Prov:Elvis Ohara MD 11/15/16 Amoxicillin-Clavulanate (Augmentin) 875-125 Mg Tab, 1 TAB PO BID for Infection for 7 Days, #14 TAB 0 Refills Prov:Elvis Ohara MD 11/15/16 Physical Exam Vital Signs Date Time Temp Pulse Resp B/P (MAP) Pulse Ox O2 Delivery O2 Flow Rate FiO2 12/09/16 12:00 98.0 50 18 142/88 (106) 98 12/09/16 09:55 98.6 53 20 141/90 (107) 99 12/09/16 09:03 12/09/16 08:00 97.7 72 18 156/97 (116) 96 12/09/16 03:11 45 18 128/67 (87) 100 12/09/16 00:38 98.6 47 18 127/66 (86) 96 12/08/16 19:42 98.4 65 18 108/67 (81) 95 12/08/16 16:06 97.9 73 16 112/75 (87) 97 Narrative GENERAL: Well-nourished, well-developed patient. SKIN: Warm and dry. HEAD: Normocephalic and atraumatic. EYES: No scleral icterus. No injection or drainage. ENT: No nasal drainage noted. Mucous membranes pink. Airway patent. NECK: Supple, trachea midline. No JVD. CARDIOVASCULAR: Regular rate and rhythm without murmurs, gallops, or rubs. RESPIRATORY: Breath sounds equal bilaterally. No accessory muscle use. BREASTS: Bilateral exam showed no masses , no retractions, no nipple discharge. ABDOMEN/GI: Abdomen soft, non-tender, bowel sounds present, no rebound, no guarding Gravid to [-] weeks size Fundal Height: [-] GENITOURINARY: External Genitalia: intact and normal in appearance BUS glands: [-] Cervix: [-] Dilatation: [-] Effacement: [-] Station: [-] Presentation: [-] Membranes: [intact or ruptured] Uterine Contractions: [-] FHT's: Category: [-] Baseline: [-] Reactive: [-] Variability: [-] Decels: [-] EXTREMITIES: No cyanosis or edema. BACK: Nontender without obvious deformity. No CVA tenderness. NEUROLOGICAL: Awake and alert. Motor and sensory grossly within normal limits. Five out of 5 muscle strength in all muscle groups. Normal speech. Data Data Orders Orders Hydrocortisone Supp (Hemorrhoidal Hc Sup (12/08/16 21:00) Npo After Midnight W/ Po Meds (12/09/16 Breakfast) Consent (12/08/16 15:59) Enema Administration (12/09/16 07:00) ^ Other Nursing Orders (12/08/16 17:08) Bucket, Enema Cleansing Ea (12/09/16 04:01) Panendo (12/09/16 ) Sigmoidoscopy (12/09/16 ) Diet Heart Healthy (12/09/16 Lunch) Cbc No Diff, Includes Plts (12/10/16 06:00) ^ Other Nursing Orders (12/09/16 10:16) Hydromorphone (Dilaudid) (12/09/16 11:00) Labs Laboratory Tests Test 12/09/16 08:13 White Blood Count 6.7 Red Blood Count 5.20 Hemoglobin 12.9 Hematocrit 41.3 Mean Corpuscular Volume 79.4 Mean Corpuscular Hemoglobin 24.8 Mean Corpuscular Hemoglobin Concent 31.2 Red Cell Distribution Width 19.0 Platelet Count 220 Mean Platelet Volume 10.4 Neutrophils (%) (Auto) 51.1 Lymphocytes (%) (Auto) 40.2 Monocytes (%) (Auto) 5.6 Eosinophils (%) (Auto) 2.1 Basophils (%) (Auto) 1.0 Neutrophils # (Auto) 3.5 Lymphocytes # (Auto) 2.7 Monocytes # (Auto) 0.4 Eosinophils # (Auto) 0.1 Basophils # (Auto) 0.1 CBC Comment DIFF FINAL Differential Comment Blood Urea Nitrogen 11 Creatinine 0.74 Random Glucose 89 Total Protein 7.7 Albumin 3.6 Calcium Level 8.4 Alkaline Phosphatase 112 Aspartate Amino Transf (AST/SGOT) 19 Alanine Aminotransferase (ALT/SGPT) 18 Total Bilirubin 0.3 Sodium Level 142 Potassium Level 3.9 Chloride Level 111 Carbon Dioxide Level 24.2 Anion Gap 7 Estimat Glomerular Filtration Rate 85 Date/Time Source Procedure Growth Status 12/08/16 01:35 Urine Random Urine Urine Culture - Final 50-100,000 CFU/ML MIXED PIPPA... Complete MDM Plan 1. R adnexal cyst vs TOA -- reviewed imaging and US appears to show a simple appearing 5cm cyst on the R -- recommend 6wk outpt followup US for resolution -- given afebrile and normocytosis, unlikely TOA; consider PO abx as outpt for possible PID 2. cervical polyp -- suspect benign -- needs outpt f/u 3. abdominal pain -- differential broad including PID, substance withdrawal, colitis, and urinary given pt reports of difficulty voiding; would recommend urology consultation Thank you for allowing us to be involved in this pt's care. Please contact us if we can be of further service to you. Recommend outpt follow up at [facility] following discharge for cervical polyp and repeat US for R adnexal cyst resolution. Admitting diagnosis: Intractable Vomiting, Withdrawal syndrome Katie Robin MD Dec 09, 2016 15:01
[2016-12-09] MEDS: PANTOPRAZOLE SODIUM 40 MG VIAL IV PUSH SCH (15:16)
[2016-12-10 00:03] VITALS: BP 140/95; PULSE 64; RESP 18; TEMP 97.6; O2SAT 99
[2016-12-10] MEDS: LORazepam 0.5 MG TAB PO PRN (02:02)
[2016-12-10 03:06] VITALS: BP 166/102; PULSE 61; RESP 16; O2SAT 96
[2016-12-10 03:16] VITALS: BP 162/110; PULSE 72; RESP 16; O2SAT 97
[2016-12-10 03:49] VITALS: BP 150/100; PULSE 73; RESP 18; TEMP 97.6; O2SAT 97
[2016-12-10] MEDS: ceFOXitin INJ 1 GM in SODIUM CHLORIDE 0.9% INJ 100 ML IV SCH ×2 (05:09→11:19)
[2016-12-10] MEDS: SODIUM CHLOR 0.9% 1000 ML INJ 1,000 ML IV SCH (05:10)
[2016-12-10 08:50] VITALS: BP 153/91; PULSE 60; RESP 20; TEMP 97.9; O2SAT 99
[2016-12-10] MEDS: DOXYCYCLINE HYCLATE 100 MG CAP PO SCH (08:58)
[2016-12-10] MEDS: GABAPENTIN 300 MG CAP PO SCH ×2 (08:58→11:20)
[2016-12-10] MEDS: FAMOTIDINE 20 MG TAB PO SCH (08:58)
[2016-12-10] MEDS: HYDROCORTISONE ACETATE 25 MG SUPP RECTAL SCH (08:58)
[2016-12-10] MEDS: SODIUM CHLORIDE 0.9% FLUSH 10 ML FLUSH IV FLUSH SCH (08:59)
--- NOTE | 2016-12-10 11:34 | HHI.GIFU ---
Subjective Remarks Patient is resting in bed. She reports that she continues to have diarrhea, but when asked how many episodes today, she reports that she has not had any. She does complain of painful urination and suprapubic tenderness. She also complains of abdominal cramping and is requesting Bentyl. She reports that she is has taken this in the past and it works very well for her abdominal pain. She is tolerating her diet but requesting that it be changed from a heart healthy diet to a regular diet. ([place]) Objective Vitals I&O Vital Signs Date Time Temp Pulse Resp B/P (MAP) Pulse Ox O2 Delivery O2 Flow Rate FiO2 12/10/16 08:50 97.9 60 20 153/91 (111) 99 12/10/16 03:49 97.6 73 18 150/100 (117) 97 12/10/16 03:16 72 16 162/110 (127) 97 12/10/16 03:06 61 16 166/102 (123) 96 12/10/16 00:03 97.6 64 18 140/95 (110) 99 12/09/16 20:55 72 18 134/84 (101) 96 12/09/16 20:18 70 16 156/110 (125) 96 12/09/16 16:00 98.1 74 18 126/79 (95) 98 12/09/16 12:00 98.0 50 18 142/88 (106) 98 I/O 12/09/16 12/09/16 12/09/16 12/10/16 12/10/16 12/10/16 07:00 15:00 23:00 07:00 15:00 23:00 Intake Total 1600 ml 1500 ml Balance 1600 ml 1500 ml Intake Oral 1600 ml 500 ml IV Total 1000 ml # Voids 3 2 # Bowel Movements 3 Laboratory Date/Time Source Procedure Growth Status 12/08/16 01:35 Urine Random Urine Urine Culture - Final 50-100,000 CFU/ML MIXED PIPPA... Complete Imaging Last Impressions Abdomen/Pelvis/Transvag US 12/08/16 1503 Signed Impressions: Service Date/Time: Thursday, December 08, 2016 03:21 - CONCLUSION: Right adnexal cyst versus abscess Mohsen Ovalles MD Abdomen/Pelvis CT 12/08/16 0044 Signed Impressions: Service Date/Time: Thursday, December 08, 2016 01:47 - CONCLUSION: 1. Right adnexal cyst versus tubo-ovarian abscess with findings of pelvic inflammatory disease. Mohsen Ovalles MD Physical Exam HEENT: Normocephalic; atraumatic; no jaundice. CHEST: CTA CARDIAC: RRR ABDOMEN: Soft, nondistended,mild suprapubic tenderness no hepatosplenomegaly; bowel sounds are present in all four quadrants. EXTREMITIES: No clubbing, cyanosis, or edema. SKIN: Normal; no rash; no jaundice. ELECTRICIANS TOP HELPER: No focal deficits; alert and oriented times three. ([place]) Assessment and Plan Plan ASSESSMENT: - N/V/D, Abdominal pain. CT scan abdomen and pelvis with IV contrast (12/08/16) ----> right adnexal cyst versus tubo-ovarian abscess with findings of pelvic inflammatory disease. S/P EGD with flexible sigmoidoscopy with biopsy (12/09/16)----> Esophagitis, Hiatal hernia, Gastritis, Unremarkable limited flexible sigmoidoscopy due to poor prep. Pathology pending. PPI. Requesting bentyl. States she is still having diarrhea, but then states she has not had a bowel movement today. Tolerating diet. Stool studies pending. - Rectal burning with occasional BRBPR, on tissue with bowel movements. Hydrocortisone suppositories. - ? Hematemesis. EGD as above. HH stable. 12.9/41.3. - Esophagitis, gastritis. Pathology pending. PPI - Abnormal imaging with right adnexal cyst vs. tubo-ovarian abscess with findings of PID. Pelvic US (12/08/16)---> Right adnexal cyst versus abscess. DIE REPAIRER TRIMMER DIES following. PLAN: - [place] - Await pathology - Cont. PPI - Cont. Hydrocortisone suppositories - Add Bentyl - Stool studies - DIE REPAIRER TRIMMER DIES following. - Supportive care - Further recommendations to follow based on results of above - Patient seen and examined by Dr. Montejo and myself and this note is written on his behalf ([place]) Physician Comments Patient seen and examined Agree with above Continue with current supportive care Monitor labs (Evan Montejo MD) [place] Dec 10, 2016 11:34 Evan oMntejo MD Dec 10, 2016 16:37
[2016-12-10] MEDS ORDERED: DICYCLOMINE HCL 20 MG TAB PO PRN (11:45)
[2016-12-10] MEDS ORDERED: cefTRIAXone 250 MG VIAL IM ONE (12:15)
[2016-12-10] MEDS ORDERED: PANT40TA3 PO (12:17)
[2016-12-10] MEDS ORDERED: DICY20TA10 PO (12:17)
[2016-12-10] MEDS ORDERED: DOXY100C PO (12:17)
[2016-12-10] MEDS ORDERED: NORC5TAB PO (12:31)
[2016-12-10 12:36] VITALS: BP 181/108; PULSE 69; RESP 20; TEMP 97.8; O2SAT 97
--- NOTE | 2016-12-10 12:36 | HHI.PR ---
Subjective Remarks Patient reports abdominal pain is resolved. She reports that she has bilateral leg cramping which has been present all her life. It is worse over the past day. She is asking for narcotics for this. Patient and fiance have been homeless for the past week. They're just been talking with case management about resources available to them. Objective Vital Signs Date Time Temp Pulse Resp B/P (MAP) Pulse Ox O2 Delivery O2 Flow Rate FiO2 12/10/16 08:50 97.9 60 20 153/91 (111) 99 12/10/16 03:49 97.6 73 18 150/100 (117) 97 12/10/16 03:16 72 16 162/110 (127) 97 12/10/16 03:06 61 16 166/102 (123) 96 12/10/16 00:03 97.6 64 18 140/95 (110) 99 12/09/16 20:55 72 18 134/84 (101) 96 12/09/16 20:18 70 16 156/110 (125) 96 12/09/16 16:00 98.1 74 18 126/79 (95) 98 I/O 12/09/16 12/09/16 12/09/16 12/10/16 12/10/16 12/10/16 07:00 15:00 23:00 07:00 15:00 23:00 Intake Total 1600 ml 1500 ml Balance 1600 ml 1500 ml Intake Oral 1600 ml 500 ml IV Total 1000 ml # Voids 3 2 # Bowel Movements 3 Result Diagram: 12/09/16 0813 12/09/16 0813 Imaging Last Impressions Abdomen/Pelvis/Transvag US 12/08/16 0237 Signed Impressions: Service Date/Time: Thursday, December 08, 2016 03:21 - CONCLUSION: Right adnexal cyst versus abscess Mohsen Ovalles MD Abdomen/Pelvis CT 12/08/16 0044 Signed Impressions: Service Date/Time: Thursday, December 08, 2016 01:47 - CONCLUSION: 1. Right adnexal cyst versus tubo-ovarian abscess with findings of pelvic inflammatory disease. Mohsen Ovalles MD Objective Remarks GENERAL: Patient sitting up in bed crosslegged, kazakh style. Ears comfortable. SKIN: Warm and dry. HEAD: Normocephalic. EYES: No scleral icterus. No injection or drainage. NECK: Supple, trachea midline. No JVD. CARDIOVASCULAR: Regular rate and rhythm without murmurs, gallops, or rubs. RESPIRATORY: Breath sounds equal bilaterally. No accessory muscle use. GASTROINTESTINAL: Abdomen soft, nontender, nondistended. No rebound or guarding. MUSCULOSKELETAL: No cyanosis, or edema. BACK: Nontender without obvious deformity. No CVA tenderness. A/P Assessment and Plan 46-year-old female with a PMH of Anxiety, Depression, Bipolar Disorder, h/o Cervical CA, COPD, Hepatitis C, Polysubstance Abuse, h/o Withdrawal Seizure and h/o IVDA who presented w/ complaints of nausea/vomiting/diarrhea/abdominal pain x3 days. //Nausea/vomiting/diarrhea/abdominal pain: Patient is not tolerating oral intake. 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 -Clear liquids. Antiemetics as needed. IVF. -Consult GI -IV Protonix -Ativan prn for possible withdrawal symptoms. -Oxycodone as needed for pain, caution with substance abuse = 12/09. Patient with significant pain after colonoscopy. We'll order by mouth Dilaudid 1. With results of GI biopsies. = Nausea, vomiting, abdominal pain resolved today. Discharge home with Bentyl, PPI as per GI. Follow-up with GI for results of pathology from colonoscopy. //Possible PID or tubo-ovarian abscess: Pelvic exam performed in the ED; negative for chlamydia, gonorrhea, clue cells, Trichomonas, yeast. Reviewed: Abdominal CT showed right adnexal cyst vs tubo-ovarian abscess with findings of PID. Transvaginal ultrasound showed right adnexal cyst vs abscess. WBC 12.2, decreased to normal limits. Afebrile. -TEAM FOREMAN consulted, appreciate input -Continue on cefoxitin and doxycycline pending TEAM FOREMAN input. = 12/09. Await gynecology consultation. Continue antibiotics. = 12/10. Gynecology recommends discharge on antibiotics as repeat ultrasound in 6 weeks. Discussed with the patient conveys understanding. Discharge home on doxycycline. //LUZ: Creatinine 1.15, previously 0.80 on 11/15/16. Given IVF for hydration, creatinine persistently 1.14 with continued vomiting. Repeat labs in am. = 12/09. Creatinine 0.7. Appears resolved. //Hypokalemia: Despite oral replacement in the ED, potassium decreased again to 2.9. Magnesium within normal limits. Replace orally and by IV. = 12/09. Potassium 3.9 from 2.9. Resolved after replacement. //Polysubstance Abuse: Admits to recent IVDU w/ Dilaudid. UDS positive for opiates, cocaine, and cannabis. Patient counseling. //Homeless. Patient reports being homeless over the past week. Case management consulted for assistance with resources. //Chronic pain: Reports she takes gabapentin as outpatient, will resume at renally adjusted dose. Martina Galindo demonstrates no standing control prescriptions. = I do not feel that narcotics would benefit the patient. //Anxiety: Patient is a bit sleepy, decrease Vistaril dose. Continue Zyprexa. Patient reports she is on Klonopin, although this is not present on Martina Galindo. //Abnormal UA: UA with 117 squamous epithelial cells, contaminated specimen is of no value. Denies any urinary symptoms. On antibiotics as above. = 12/09. Urine culture continues pending. Patient is on antibiotics nonetheless for PID. = 12/10. Normal harmony return. She'll be on doxycycline for PID. DVT Prophylaxis: SCD/Teds. Discharge Planning Discharge home. She'll need to follow-up with gynecology for repeat ultrasound in 6 weeks. Patient conveys understanding. Hao Garay MD Dec 10, 2016 12:36
[2016-12-10] MEDS ORDERED: KETOROLAC TROMETHAMINE 30 MG/ML (IVP) VIAL IV PUSH ONE (12:45)
--- NOTE | 2016-12-10 13:20 | PD.CONS ---
[facility] Service Urology Consult Requested By Dr. Garay Reason for Consult Chronic voiding issues Primary Care Physician No Primary Care Physician Diagnosis: (1) LUZ (acute kidney injury) ICD Code: N17.9 - Acute kidney failure, unspecified (2) Hypokalemia ICD Code: E87.6 - Hypokalemia (3) PID (acute pelvic inflammatory disease) ICD Code: N73.0 - Acute parametritis and pelvic cellulitis (4) Polysubstance abuse ICD Code: F19.10 - Other psychoactive substance abuse, uncomplicated History of Present Illness Consulted to evaluate this 46-year-old female who presented with abdominal pain regarding chronic voiding issues. Patient reports that for the past several years she has found it necessary to strain in order to empty her bladder. She also reports a history of pyelonephritis in the past. During present hospitalization a CT scan of the abdomen and pelvis was performed that demonstrated normal-appearing kidneys without hydronephrosis, calculi or mass lesions. The urinary bladder appeared normal. Patient has already been seen by GI and COLLECTIONS MANAGER during present consultation and is scheduled to be discharged home later today. Review of Systems Constitutional: DENIES: Fever, Chills Cardiovascular: DENIES: Chest pain Gastrointestinal: COMPLAINS OF: Abdominal pain Genitourinary: COMPLAINS OF: Dysuria, DENIES: Urgency, Hematuria Except as stated in HPI: all other systems reviewed are Neg Past Family Social History Past Medical History Anxiety/depression Bipolar disorder Cervical CTA COPD Hepatitis C Polysubstance abuse Past Surgical History Status post appendectomy Status post left hand surgery Status post left foot surgery Reported Medications Refer to EMR Allergies: Coded Allergies: Sulfa (Sulfonamide Antibiotics) (Unverified Allergy, Severe, Rash, 11/17/16 ) magnesium (Unverified Adverse Reaction, Unknown, PRUITIC RASH, 11/17/16) magnesium sulfate (Unverified Adverse Reaction, Unknown, PRUITIC RASH, ) prochlorperazine (Unverified Adverse Reaction, Unknown, ANGINA, 11/17/16) terbutaline (Unverified Adverse Reaction, Unknown, HEART RATE ELEVATES, ) Active Ordered Medications Refer to EMR Family History Reviewed and noncontributory Social History History polysubstance abuse Smoker one half pack per day Physical Exam Vital Signs Date Time Temp Pulse Resp B/P (MAP) Pulse Ox O2 Delivery O2 Flow Rate FiO2 1018/17 12:36 97.8 69 20 181/108 (132) 97 12/10/16 08:50 97.9 60 20 153/91 (111) 99 12/10/16 03:49 97.6 73 18 150/100 (117) 97 12/10/16 03:16 72 16 162/110 (127) 97 12/10/16 03:06 61 16 166/102 (123) 96 12/10/16 00:03 97.6 64 18 140/95 (110) 99 12/09/16 20:55 72 18 134/84 (101) 96 12/09/16 20:18 70 16 156/110 (125) 96 12/09/16 16:00 98.1 74 18 126/79 (95) 98 Physical Exam GENERAL: This is a well-nourished, well-developed patient, in no apparent distress. SKIN: No rashes, ecchymoses or lesions. Cool and dry. HEAD: Atraumatic. Normocephalic. No temporal or scalp tenderness. EYES: Pupils equal round and reactive. Extraocular motions intact. No scleral icterus. No injection or drainage. ENT: Nose without bleeding, purulent drainage or septal hematoma. Throat without erythema, tonsillar hypertrophy or exudate. Uvula midline. Airway patent. NECK: Trachea midline. No JVD or lymphadenopathy. Supple, nontender, no meningeal signs. GASTROINTESTINAL: Abdomen soft, non-tender, nondistended. No hepato-splenomegaly , or palpable masses. No guarding. GENITOURINARY: No CVA tenderness MUSCULOSKELETAL: Extremities without clubbing, cyanosis, or edema. No joint tenderness, effusion, or edema noted. No calf tenderness. Negative Homans sign bilaterally. NEUROLOGICAL: Awake and alert. Cranial nerves II through XII intact. Motor and sensory grossly within normal limits. Five out of 5 muscle strength in all muscle groups. Normal speech. Lab results reviewed: Yes Date/Time Source Procedure Growth Status 12/08/16 01:35 Urine Random Urine Urine Culture - Final 50-100,000 CFU/ML MIXED PIPPA... Complete Result Diagram: 12/09/1613 12/09/1613 Personally reviewed images: Yes Imaging Last Impressions Abdomen/Pelvis/Transvag US 12/08/16 9058 Signed Impressions: Service Date/Time: Thursday, December 08, 2016 03:21 - CONCLUSION: Right adnexal cyst versus abscess Mohsen Ovalles MD Abdomen/Pelvis CT 12/08/16 0044 Signed Impressions: Service Date/Time: Thursday, December 08, 2016 01:47 - CONCLUSION: 1. Right adnexal cyst versus tubo-ovarian abscess with findings of pelvic inflammatory disease. Mohsen Ovalles MD Assessment and Plan Assessment and Plan Urologic impression: Chronic voiding dysfunction of indeterminate etiology. Recommendation: Patient to follow up at my office for a complete urologic workup to include urodynamics and possibly cystoscopy. Flavio Espinoza MD Dec 10, 2016 13:20
--- NOTE | 2016-12-10 14:05 | RADRPT ---
EXAM DATE/TIME: 12/10/2016 13:18 [place] COMPARISON: No previous studies available for comparison. INDICATIONS : Bilateral leg pain. MEDICAL HISTORY : Myocardial infarction. Inflammatory bowel disease. Hepatitis C. Brain injury. Seizures. CVA. Herniate d lumbar discs. Migraines. Palpitations. HTN. COPD. Irregular heartbeat. Asthma. Colitis. Ulcer. Godfrey temesis. GERD. Ovarian cysts. Ectopic . UTI. Chronic back pain. Restless leg syndrome. PTSD . Bipolar disorder. Anxiety. Substance use. Insomnia. MRSA. SURGICAL HISTORY : Appendectomy.Tubal ligation. D&C. Left hand surgery. Left foot surgery. ENCOUNTER: Initial ACUITY: 1 day PAIN SCORE: 9/10 LOCATION: Bilateral leg. TECHNIQUE: Venous ultrasound of the left and right leg was performed from the inguinal ligament to the proximal calf. Real-time, color Doppler and spectral tracing, compression and augmentation techniques were us ed. FINDINGS: RIGHT LEG: There is normal compressibility of the deep venous system from the inguinal region to the proximal ca lf. No echogenic clot is seen in the lumen of the common femoral, femoral, popliteal, and posterior tibial veins. There is a normal response of the venous system to proximal and distal augmentation an d respiration. LEFT LEG: There is normal compressibility of the deep venous system from the inguinal region to the proximal ca lf. No echogenic clot is seen in the lumen of the common femoral, femoral, popliteal, and posterior tibial veins. There is a normal response of the venous system to proximal and distal augmentation an d respiration. CONCLUSION: Normal examination. Buzz Pena Jr., MD on December 10, 2016 at 13:42 Board Certified Radiologist. This report was verified electronically.
--- NOTE | 2016-12-10 17:01 | HHI.DS ---
Discharge Summary Admission Date Dec 08, 2016 at 02:42 Discharge Date: Dec 10, 2016 Admitting Diagnosis Intractable Vomiting, Withdrawal syndrome (1) LUZ (acute kidney injury) ICD Code: N17.9 - Acute kidney failure, unspecified Status: Acute (2) Hypokalemia ICD Code: E87.6 - Hypokalemia Status: Acute (3) PID (acute pelvic inflammatory disease) ICD Code: N73.0 - Acute parametritis and pelvic cellulitis Status: Acute (4) Polysubstance abuse ICD Code: F19.10 - Other psychoactive substance abuse, uncomplicated Status: Chronic Procedures Colonoscopy, EGD, pelvic ultrasound. Brief History - From Admission This is a 46-year-old female with a PMH of Anxiety, Depression, Bipolar Disorder , h/o Cervical CA, COPD, Hepatitis C, Polysubstance Abuse, h/o Withdrawal Seizure and h/o IVDA who presented to the ER w/ complaints of nausea/vomiting in addition to abdominal pain x3 days. States she was following w/ resource conservation specialist who was giving her Morphine, but ran out of her Morphine and Klonopin 1 wk ago. States pain was so severe yesterday she had no choice but to inject Dilaudid. Denies fever or chills. On arrival, BP 113/73, HR 73, O2 sat 98% on RA, Afebrile. WBC 12.2. K+ 3.1. Creatinine 1.15, previously 0.80 on 11/15/16. UA positive for UTI. CT Abd/Pelvis w/ right adnexal cyst vs tubo-ovarian abscess w/ PID. S/p Rocephin in ER. Pelvic US pending. CBC/BMP: 12/09/1613 12/09/16812 Significant Findings Laboratory Tests Test 12/08/16 00:30 12/08/16 01:35 12/08/16 02:55 12/08/16 10:59 White Blood Count 12.2 TH/MM3 (4.0-11.0) Red Blood Count 5.93 MIL/MM3 (4.00-5.30) Mean Corpuscular Volume 76.8 FL (80.0-100.0) 78.0 FL (80.0-100.0) Mean Corpuscular Hemoglobin 24.4 PG (27.0-34.0) 24.8 PG (27.0-34.0) Mean Corpuscular Hemoglobin Concent 31.8 % (32.0-36.0) 31.8 % (32.0-36.0) Red Cell Distribution Width 18.7 % (11.6-17.2) 18.4 % (11.6-17.2) Neutrophils (%) (Auto) 77.1 % (16.0-70.0) Neutrophils # (Auto) 9.4 TH/MM3 (1.8-7.7) Creatinine 1.15 MG/DL (0.50-1.00) 1.14 MG/DL (0.50-1.00) Random Glucose 142 MG/DL (74-106) Total Protein 10.1 GM/DL (6.4-8.2) Alkaline Phosphatase 158 U/L (45-117) Potassium Level 3.1 MEQ/L (3.5-5.1) 2.9 MEQ/L (3.5-5.1) Carbon Dioxide Level 32.4 MEQ/L (21.0-32.0) Estimat Glomerular Filtration Rate 51 ML/MIN (>89) 52 ML/MIN (>89) Troponin I LESS THAN 0.02 NG/ML C-Reactive Protein 0.34 MG/DL (0.00-0.30) Urine Color RED (YELLW/STRAW) Urine Turbidity CLOUDY (CLEAR) Urine Protein 100 mg/dL (NEG-TRACE) Urine Ketones 80 mg/dL (NEG) Urine Urobilinogen 4.0 MG/DL (LESS THAN Urine Leukocyte Esterase MOD (NEG) Urine WBC 36 /hpf (0-5) Urine Bacteria OCC /hpf (NONE) Urine Mucus MANY /lpf (OCC) Urine Opiates Screen POS (NEG) Urine Cocaine Screen POS (NEG) Urine Cannabinoids Screen POS (NEG) Hemoglobin 11.5 GM/DL (11.6-15.3) Calcium Level 8.4 MG/DL (8.5-10.1) Test 12/09/16 08:13 Mean Corpuscular Volume 79.4 FL (80.0-100.0) Mean Corpuscular Hemoglobin 24.8 PG (27.0-34.0) Mean Corpuscular Hemoglobin Concent 31.2 % (32.0-36.0) Red Cell Distribution Width 19.0 % (11.6-17.2) Calcium Level 8.4 MG/DL (8.5-10.1) Chloride Level 111 MEQ/L (98-107) Estimat Glomerular Filtration Rate 85 ML/MIN (>89) Imaging Last Impressions Lower Extremity Ultrasound 12/10/16 0000 Signed Impressions: Service Date/Time: Saturday, December 10, 2016 13:18 - CONCLUSION: Normal examination. Buzz Pena Jr., MD Abdomen/Pelvis/Transvag US 12/08/16 0237 Signed Impressions: Service Date/Time: Thursday, December 08, 2016 03:21 - CONCLUSION: Right adnexal cyst versus abscess Mohsen Ovalles MD Abdomen/Pelvis CT 12/08/16 0044 Signed Impressions: Service Date/Time: Thursday, December 08, 2016 01:47 - CONCLUSION: 1. Right adnexal cyst versus tubo-ovarian abscess with findings of pelvic inflammatory disease. Mohsen Ovalles MD PE at Discharge GENERAL: Well-developed well-nourished. In no acute distress. SKIN: Warm and dry. No lesions noted. HEENT: Normocephalic. Pupils equal and round. Mucous membranes pink and moist. CARDIOVASCULAR: Regular rate and rhythm. No murmur appreciated. RESPIRATORY: No accessory muscle use. Clear to auscultation. Breath sounds equal bilaterally. GASTROINTESTINAL: Abdomen soft, nondistended. Bowel sounds x4. Generalized tenderness to palpation. MUSCULOSKELETAL: No obvious deformities. No clubbing or cyanosis. No edema. NEUROLOGICAL: Awake and alert. No focal neurological deficits. Moves upper and lower extremities spontaneously. Normal speech. PSYCHIATRIC: Slightly anxious mood and affect; insight and judgment fair to normal. Hospital Course Patient has leukocytosis of 12.2 on admission, abdominal tenderness. CT abdomen , and subsequently ultrasound showing adnexal cyst as above. CT also with signs of pelvic inflammatory disease. Patient was started on broad-spectrum antibiotics. Gynecology was consulted, feels that this is a benign cyst. GI was consulted, patient underwent EGD, colonoscopy with no acute findings apart from esophagitis, hiatal hernia. She was started on PPI as well as Bentyl. Abdominal pain resolved on 12/10. Patient was discharged home after receiving IM Rocephin, with 2 week course of doxycycline. She will follow-up with gynecology as outpatient. She also noted some voiding dysfunction, and will follow-up urology as outpatient as well. Drug screen positive for cocaine and cannabis, and patient was counseled on cessation. For problem-based summary from most recent progress note, please see below. 46-year-old female with a PMH of Anxiety, Depression, Bipolar Disorder, h/o Cervical CA, COPD, Hepatitis C, Polysubstance Abuse, h/o Withdrawal Seizure and h/o IVDA who presented w/ complaints of nausea/vomiting/diarrhea/abdominal pain x3 days. //Nausea/vomiting/diarrhea/abdominal pain: Patient is not tolerating oral intake. Symptoms may be secondary to Plant Director etiology as below, medication/ substance abuse withdrawal, or underlying GI etiology. -Clear liquids. Antiemetics as needed. IVF. -Consult GI -IV Protonix -Ativan prn for possible withdrawal symptoms. -Oxycodone as needed for pain, caution with substance abuse = 12/09. Patient with significant pain after colonoscopy. We'll order by mouth Dilaudid 1. With results of GI biopsies. = Nausea, vomiting, abdominal pain resolved today. Discharge home with Bentyl, PPI as per GI. Follow-up with GI for results of pathology from colonoscopy. //Possible PID or tubo-ovarian abscess: Pelvic exam performed in the ED; negative for chlamydia, gonorrhea, clue cells, Trichomonas, yeast. Reviewed: Abdominal CT showed right adnexal cyst vs tubo-ovarian abscess with findings of PID. Transvaginal ultrasound showed right adnexal cyst vs abscess. WBC 12.2, decreased to normal limits. Afebrile. -OUTPATIENT PSYCHIATRIST consulted, appreciate input -Continue on cefoxitin and doxycycline pending OUTPATIENT PSYCHIATRIST input. = 12/09. Await gynecology consultation. Continue antibiotics. = 12/10. Gynecology recommends discharge on antibiotics as repeat ultrasound in 6 weeks. Discussed with the patient conveys understanding. Discharge home on doxycycline. //LUZ: Creatinine 1.15, previously 0.80 on 11/15/16. Given IVF for hydration, creatinine persistently 1.14 with continued vomiting. Repeat labs in am. = 12/09. Creatinine 0.7. Appears resolved. //Hypokalemia: Despite oral replacement in the ED, potassium decreased again to 2.9. Magnesium within normal limits. Replace orally and by IV. = 12/09. Potassium 3.9 from 2.9. Resolved after replacement. //Polysubstance Abuse: Admits to recent IVDU w/ Dilaudid. UDS positive for opiates, cocaine, and cannabis. Patient counseling. //Homeless. Patient reports being homeless over the past week. Case management consulted for assistance with resources. //Chronic pain: Reports she takes gabapentin as outpatient, will resume at renally adjusted dose. E Mateo demonstrates no standing control prescriptions. = I do not feel that narcotics would benefit the patient. //Anxiety: Patient is a bit sleepy, decrease Vistaril dose. Continue Zyprexa. Patient reports she is on Klonopin, although this is not present on E Forsce. //Abnormal UA: UA with 117 squamous epithelial cells, contaminated specimen is of no value. Denies any urinary symptoms. On antibiotics as above. = 12/09. Urine culture continues pending. Patient is on antibiotics nonetheless for PID. = 12/10. Normal harmony return. She'll be on doxycycline for PID. DVT Prophylaxis: SCD/Teds. Pt Condition on Discharge: Good Discharge Disposition: Discharge Home Discharge Time: > 30 minutes Discharge Instructions DIET: Follow Instructions for: As Tolerated, No Restrictions Activities you can perform: Regular-No Restrictions Follow up Referrals: ORTHOPEDIC RADIOLOGIC TECHNOLOGIST - 2 Weeks @ [facility] PCP Follow-up - 1 Week Urology - 1 Week with Flavio Espinoza MD New Medications: Hydrocodone-Acetaminophen ([place]) 5-325 mg Tab 1 TAB PO Q4H PRN for PAIN, #10 TAB 0 Refills Dicyclomine (Dicyclomine) 20 Mg Tab 20 MG PO TID PRN for cramping for 30 Days, TAB Doxycycline Hyclate (Doxycycline Hyclate) 100 Mg Cap 100 MG PO BID for Infection for 14 Days, #28 CAP Pantoprazole (Pantoprazole) 40 Mg Tab 40 MG PO DAILY for Reflux for 30 Days, #30 TAB Continued Medications: Clonazepam (Klonopin) 2 Mg Tab 1 MG PO TID, #60 TAB 0 Refills Clonidine (Clonidine) 0.3 Mg Tab 0.3 MG PO TID for Blood Pressure Management, #60 TAB 0 Refills Gabapentin (Gabapentin) 600 Mg Tab 1200 MG PO BID, #60 TAB 0 Refills Hydroxyzine Pamoate (Vistaril) 50 Mg Cap 100 MG PO BID, CAP 0 Refills Olanzapine (Zyprexa) 15 Mg Tab 15 MG PO DAILY, #30 TAB 0 Refills Hao Garay MD Dec 10, 2016 17:01
[2016-12-11] MEDS ORDERED: PANTOPRAZOLE SOD 40 MG DELAYED RELEASE TAB PO SCH (09:00)
== END 2016-12-10 14:49 | disposition home or self-care (01) ==
LOC: NEPE 23:44 → INTOOBSV 12-08 02:42 → NEDA 12-08 02:42 → NEPGCP 12-08 04:32
PROVIDERS: ADMIT Internal Medicine; ATTEND Internal Medicine
DX: F11.23 Opioid dependence with withdrawal (principal); N17.9 Acute kidney failure, unspecified; E87.6 Hypokalemia; N73.0 Acute parametritis and pelvic cellulitis; K44.9 Diaphragmatic hernia without obstruction or gangrene; K29.70 Gastritis, unspecified, without bleeding; J44.9 Chronic obstructive pulmonary disease, unspecified; F41.9 Anxiety disorder, unspecified; F31.9 Bipolar disorder, unspecified; K21.0 Gastro-esophageal reflux disease with esophagitis; I10 Essential (primary) hypertension; F32.9 Major depressive disorder, single episode, unspecified; N39.0 Urinary tract infection, site not specified; K31.9 Disease of stomach and duodenum, unspecified; F17.210 Nicotine dependence, cigarettes, uncomplicated; I25.2 Old myocardial infarction; Z86.73 Personal history of transient ischemic attack (TIA), and cerebral infarction without residual deficits; Z87.11 Personal history of peptic ulcer disease; Z59.0 Homelessness; Z85.41 Personal history of malignant neoplasm of cervix uteri; Z79.899 Other long term (current) drug therapy
CPT/HCPCS: 00740; 00810; 43239; 45331; 74177; 76830; 76856; 80048; 80053; 80307; 81001; 82550; 83690; 83735; 83880; 84484; 84703; 85025; 85652; 86140; 87086; 87210; 87491; 87591; 88305; 93005; 93970; 93975; 96361; 96365; 96366; 96375; 96376; 97161; 97530; 99285; C9113; G0378; G8987; G8988; J0694; J0696; J1885; J2060; J2405; J3480; J7030; Q9967

== ENCOUNTER 2016-12-14 13:47 | Inpatient (IN) | payer SELFPAY ==
[~2016-12-14] VITALS: Ht 162.6 cm; Wt 68.0 kg
[2016-12-14] VITALS (7 sets, daily range): BP systolic 144–152; BP diastolic 80–101; PULSE 72–102; RESP 16–22; TEMP 97.8–101.2; O2SAT 93–100
[~2016-12-14 13:47] MED LIST changes: -AUGM875T3 PO; -CLIN1CAP6 PO; +CLON0.3T PO; +DICY20TA10 PO; +DOXY100C PO; -HYDR-3533 PO; -IBUP800T23 PO; +NORC5TAB PO; +PANT40TA3 PO; -PERI0.126 SWISH-SPIT
[2016-12-14] MEDS ORDERED: SODIUM CHLOR 0.9% 1000 ML INJ 1,000 ML IV ONE (13:58)
--- NOTE | 2016-12-14 14:08 | PD ---
HPI Chief Complaint: Abdominal Pain Time Seen by Provider: 13:58 Travel History International Travel<30 days: No Contact w/Intl Traveler<30days: No Traveled to known affect area: No History of Present Illness HPI 46-year-old female patient who has history of ulcerative colitis, previous [place], COPD, brain injury, seizures, presents to the ER today brought in by , was recently admitted for intractable vomiting a UTI, here because she has had fevers for the past few days, disoriented yesterday according to her . She otherwise has been having some nausea and intermittent vomiting as well. She denies any other issues at this time. She is a poor historian however and appears somewhat disoriented. They both state that they are homeless, has not had some of her medications filled. Modifying Factors: None Associated Signs & Symptoms: Disorientation, fevers, nausea and vomiting Risk Factors: History of recent UTI PFSH Past Medical History Arthritis: No Asthma: Yes Autoimmune Disease: No Blood Disorders: No Bipolar Disorder: Yes Anxiety: Yes Depression: Yes Heart Rhythm Problems: Yes (PALPITATIONS) Cancer: Yes (CERVICAL, needs surgery yet) Cardiac Catheterization: No Cardiovascular Problems: Yes High Cholesterol: No Congestive Heart Failure: No COPD: Yes Cerebrovascular Accident: Yes (STROKE AND SEIZURES) Diabetes: No Diminished Hearing: No Endocrine: No Gastrointestinal Disorders: Yes (COLITIS) GERD: Yes Genitourinary: No Headaches: Yes Hepatitis: Yes (C) Hiatal Hernia: No Heparin Induced Thrombocytopen: No Herniated Disk: Yes Hypertension: Yes Immune Disorder: No Implanted Vascular Access Dvce: No Insomnia: Yes Kidney Stones: No Musculoskeletal: Yes (CHRONIC BACK PAIN) Neurologic: Yes (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, CVA) Psychiatric: Yes Reproductive: Yes Respiratory: Yes Immunizations Current: Yes Migraines: Yes Myocardial Infarction: Yes (2011) Renal Failure: No Seizures: Yes (WITHDRAWL) Sickle Cell Disease: No Sleep Apnea: No Thyroid Disease: No Ulcer: Yes Tetanus Vaccination: < 5 Years PNEUMOCCOCAL Vaccine (Year): 2 ?: Unknown LMP: 11/20/16 Menopausal: Yes : 10 Para: 6 Miscarriage: 3 : 1 Ectopic : Yes (1994) Ovarian Cysts: Yes Dilation and Curettage (D&C): Yes Tubal Ligation: Yes Past Surgical History Abdominal Surgery: Yes (appendectomy ) AICD: No Appendectomy: Yes Arteriovenous Shunt: No Cardiac Surgery: No Cholecystectomy: No (PT DENIES CHASITY) Coronary Artery Bypass Graft: No Ear Surgery: No Endocrine Surgery: No Eye Surgery: No Genitourinary Surgery: No Gynecologic Surgery: Yes Insulin Pump: No Joint Replacement: No Neurologic Surgery: Yes (HERNIATED LUMBAR DISCS ) Oral Surgery: No Pacemaker: No Thoracic Surgery: No Other Surgery: Yes (LEFT HAND SURGERY, left foot ) Social History Alcohol Use: Yes (OCCASIONALLY) Tobacco Use: Yes (1/2 PPD) Substance Use: Yes (WEED, last used Dilaudid from the street yesterday) Allergies-Medications (Allergen,Severity, Reaction): Coded Allergies: Sulfa (Sulfonamide Antibiotics) (Unverified Allergy, Severe, Rash, ) magnesium (Unverified Adverse Reaction, Unknown, PRUITIC RASH, 12/14/16) magnesium sulfate (Unverified Adverse Reaction, Unknown, PRUITIC RASH, ) prochlorperazine (Unverified Adverse Reaction, Unknown, ANGINA, 12/14/16) terbutaline (Unverified Adverse Reaction, Unknown, HEART RATE ELEVATES, ) Reported Meds & Prescriptions Reported Meds & Active Scripts Active Kohler (Hydrocodone-Acetaminophen) 5-325 mg Tab 1 Tab PO Q4H PRN Pantoprazole (Pantoprazole Sodium) 40 Mg Tab 40 Mg PO DAILY 30 Days Dicyclomine (Dicyclomine HCl) 20 Mg Tab 20 Mg PO TID PRN 30 Days Doxycycline Hyclate 100 Mg Cap 100 Mg PO BID 14 Days Gabapentin 600 Mg Tab 1,200 Mg PO BID Reported Clonidine (Clonidine HCl) 0.3 Mg Tab 0.3 Mg PO TID Zyprexa (Olanzapine) 15 Mg Tab 15 Mg PO DAILY Klonopin (Clonazepam) 2 Mg Tab 1 Mg PO TID Vistaril (Hydroxyzine Pamoate) 50 Mg Cap 100 Mg PO BID Review of Systems ROS Limitations: Altered Mental Status Physical Exam Narrative GENERAL: Well-developed middle age white female patient currently in moderate distress. Awake, but lethargic and mildly disoriented. SKIN: Focused skin assessment warm/dry. HEAD: Atraumatic. Normocephalic. EYES: Pupils equal and round. No scleral icterus. No injection or drainage. ENT: No nasal bleeding or discharge. Mucous membranes pink and moist. NECK: Trachea midline. No JVD. CARDIOVASCULAR: Regular rate and rhythm. No murmur appreciated. RESPIRATORY: No accessory muscle use. Clear to auscultation. Breath sounds equal bilaterally. GASTROINTESTINAL: Abdomen soft, mild diffuse abdominal tenderness without guarding or rebound, nondistended. Hepatic and splenic margins not palpable. MUSCULOSKELETAL: No obvious deformities. No clubbing. No cyanosis. No edema. NEUROLOGICAL: Awake and lethargic. No obvious cranial nerve deficits. Motor grossly within normal limits. Normal speech. PSYCHIATRIC: Awake and disoriented; insight and judgment poor. Data Data Last Documented VS Vital Signs Date Time Temp Pulse Resp B/P (MAP) Pulse Ox O2 Delivery O2 Flow Rate FiO2 12/14/16 17:00 94 16 144/96 (112) 95 Room Air 12/14/16 14:02 2.00 12/14/16 13:50 101.2 Orders Orders Complete Blood Count With Diff (12/14/16 13:58) Comprehensive Metabolic Panel (12/14/16 13:58) Lactic Acid Sepsis Protocol (12/14/16 13:58) Urinalysis - C+S If Indicated (12/14/16 13:58) Blood Culture (12/14/16 13:58) Blood Glucose (12/14/16 13:58) Ecg Monitoring (12/14/16 13:58) Iv Access Insert/Monitor (12/14/16 13:58) Oximetry (12/14/16 13:58) Oxygen Administration (12/14/16 13:58) Sodium Chlor 0.9% 1000 Ml Inj (Ns 1000 M (12/14/16 13:58) Acetaminophen (Tylenol) (12/14/16 14:15) Drug Screen, Random Urine (12/14/16 14:04) Alcohol (Ethanol) (12/14/16 14:04) Vascular Access Team Consult/P PRN (12/14/16 14:23) Vascular Poc Ultrasound (12/14/16 ) Ct Brain W/O Iv Contrast(Rout) (12/14/16 16:07) Ct Abd/Pel W Iv Contrast(Rout) (12/14/16 16:07) Iohexol 350 Inj (Omnipaque 350 Inj) (12/14/16 16:23) Tramadol (Ultram) (12/14/16 17:00) Diet Heart Healthy (12/14/16 Dinner) Ammonia (12/14/16 17:19) Ammonia (12/15/16 06:00) Comprehensive Metabolic Panel (12/15/16 06:00) Free Thyroxine (T4) (12/15/16 06:00) Hemoglobin (Hgb) A1c (12/15/16 06:00) Magnesium (Mg) (12/15/16 06:00) Phosphorus (Po4) (12/15/16 06:00) Thyroid Stimulating Hormone (12/15/16 06:00) Complete Blood Count With Diff (12/15/16 06:00) Admit Order (Ed Use Only) (12/14/16 17:45) Labs Laboratory Tests Test 12/14/16 14:30 12/14/16 15:05 White Blood Count 6.1 TH/MM3 Red Blood Count 3.99 MIL/MM3 Hemoglobin 10.0 GM/DL Hematocrit 30.9 % Mean Corpuscular Volume 77.5 FL Mean Corpuscular Hemoglobin 25.2 PG Mean Corpuscular Hemoglobin Concent 32.5 % Red Cell Distribution Width 19.0 % Platelet Count 184 TH/MM3 Mean Platelet Volume 8.8 FL Neutrophils (%) (Auto) 77.7 % Lymphocytes (%) (Auto) 11.3 % Monocytes (%) (Auto) 10.1 % Eosinophils (%) (Auto) 0.5 % Basophils (%) (Auto) 0.4 % Neutrophils # (Auto) 4.8 TH/MM3 Lymphocytes # (Auto) 0.7 TH/MM3 Monocytes # (Auto) 0.6 TH/MM3 Eosinophils # (Auto) 0.0 TH/MM3 Basophils # (Auto) 0.0 TH/MM3 CBC Comment DIFF FINAL Differential Comment Blood Urea Nitrogen 6 MG/DL Creatinine 0.74 MG/DL Random Glucose 103 MG/DL Total Protein 6.6 GM/DL Albumin 3.0 GM/DL Calcium Level 8.1 MG/DL Alkaline Phosphatase 104 U/L Aspartate Amino Transf (AST/SGOT) 17 U/L Alanine Aminotransferase (ALT/SGPT) 16 U/L Total Bilirubin 0.5 MG/DL Sodium Level 140 MEQ/L Potassium Level 3.1 MEQ/L Chloride Level 106 MEQ/L Carbon Dioxide Level 27.7 MEQ/L Anion Gap 6 MEQ/L Estimat Glomerular Filtration Rate 85 ML/MIN Lactic Acid Level 1.0 mmol/L Ethyl Alcohol Level LESS THAN 3 MG/DL Urine Color LIGHT-YELLOW Urine Turbidity CLEAR Urine pH 7.0 Urine Specific [place] 1.010 Urine Protein NEG mg/dL Urine Glucose (UA) NEG mg/dL Urine Ketones NEG mg/dL Urine Occult Blood NEG Urine Nitrite NEG Urine Bilirubin NEG Urine Urobilinogen LESS THAN 2.0 MG/DL Urine Leukocyte Esterase NEG Urine RBC LESS THAN 1 /hpf Urine Squamous Epithelial Cells 2 /hpf Microscopic Urinalysis Comment CATH-CULT NOT IND Urine Opiates Screen NEG Urine Barbiturates Screen NEG Urine Amphetamines Screen NEG Urine Benzodiazepines Screen NEG Urine Cocaine Screen NEG Urine Cannabinoids Screen POS MDM Medical Decision Making Medical Screen Exam Complete: Yes Emergency Medical Condition: Yes Medical Record Reviewed: Yes Interpretation(s) Laboratory Tests Test 12/14/16 14:30 12/14/16 15:05 Red Blood Count 3.99 MIL/MM3 (4.00-5.30) Hemoglobin 10.0 GM/DL (11.6-15.3) Hematocrit 30.9 % (35.0-46.0) Mean Corpuscular Volume 77.5 FL (80.0-100.0) Mean Corpuscular Hemoglobin 25.2 PG (27.0-34.0) Red Cell Distribution Width 19.0 % (11.6-17.2) Neutrophils (%) (Auto) 77.7 % (16.0-70.0) Monocytes (%) (Auto) 10.1 % (0.0-8.0) Lymphocytes # (Auto) 0.7 TH/MM3 (1.0-4.8) Blood Urea Nitrogen 6 MG/DL (7-18) Albumin 3.0 GM/DL (3.4-5.0) Calcium Level 8.1 MG/DL (8.5-10.1) Potassium Level 3.1 MEQ/L (3.5-5.1) Estimat Glomerular Filtration Rate 85 ML/MIN (>89) Urine Cannabinoids Screen POS (NEG) Last [address] 12/14/161606 Signed Impressions: Service Date/Time: Wednesday, December 14, 2016 16:23 - CONCLUSION: 1. Motion degraded exam. 2. No acute abnormality. Buzz Pena Jr., MD Abdomen/Pelvis CT 12/14/161606 Signed Impressions: Service Date/Time: Wednesday, December 14, 2016 16:26 - CONCLUSION: 1. Right adnexal cyst is slightly smaller from prior exam. It measures 4.3 cm. 2. 3.4 cm mass along the uterus likely related to a fibroid. 3. Free fluid in the endometrial canal. 4. 2 mm nonobstructing left renal stone. 5. Top normal heart size. 6. Bibasilar atelectasis. Buzz Pena Jr., MD Differential Diagnosis Sepsis versus intoxication versus metabolic issues versus dehydration Narrative Course Considering the CAT scan findings, and fever, and patient's noncompliance with medications, there is concern of possible worsening PID or TOA. Case was discussed with [facility] ER physician and he states that he would recommend observation admission for this patient considering the high risk of poor compliance. Case was discussed with Dr. Roman who agrees to admit the patient. Diagnosis Primary Impression: Abdominal pain Additional Impressions: PID (acute pelvic inflammatory disease) TOA (tubo-ovarian abscess) Admitting Information Admitting Physician Requests: Admit Az Downey MD Dec 14, 2016 14:08
[2016-12-14] MEDS ORDERED: ACETAMINOPHEN 325 MG TAB PO ONE (14:15)
[2016-12-14 15:14] LABS: AUTOMATED NEUTROPHIL # 4.8 TH/MM3 (1.8-7.7); BASOPHIL % 0.4 % (0.0-2.0); EOSINOPHIL % 0.5 % (0.0-4.0); HEMATOCRIT 30.9 % (35.0-46.0); HEMO FLAGS DIFF FINAL; LYMPH % 11.3 % (9.0-44.0); LYMPHOCYTE # 0.7 TH/MM3 (1.0-4.8); MEAN CELL VOLUME 77.5 FL (80.0-100.0); MEAN CORPUSCULAR HEMOGLOBIN 25.2 PG (27.0-34.0); MEAN CORPUSCULAR HGB CONC 32.5 % (32.0-36.0); MONO % 10.1 % (0.0-8.0); NEUT % 77.7 % (16.0-70.0); PLATELET COUNT 184 TH/MM3 (150-450); RED BLOOD COUNT 3.99 MIL/MM3 (4.00-5.30); WHITE BLOOD COUNT 6.1 TH/MM3 (4.0-11.0)
[2016-12-14 15:30] LABS: ALT (GPT) 16 U/L (10-53); ANION GAP 6 MEQ/L (5-15); AST (GOT) 17 U/L (15-37); BICARBONATE 27.7 MEQ/L (21.0-32.0); BLOOD UREA NITROGEN 6 MG/DL (7-18); CHLORIDE 106 MEQ/L (98-107); GLOMERULAR FILTRATION RATE 85 ML/MIN (>89); POTASSIUM 3.1 MEQ/L (3.5-5.1); SODIUM (NA) 140 MEQ/L (136-145)
[2016-12-14 15:32] LABS: ALKALINE PHOSPHATASE 104 U/L (45-117); TOTAL BILIRUBIN ADULT 0.5 MG/DL (0.2-1.0)
[2016-12-14 15:45] LABS: BLOOD, URINE NEG (NEG); GLUCOSE,URINE NEG (NEG); KETONE, URINE NEG (NEG); NITRITE,URINE NEG (NEG); SQUAMOUS EPITHELIAL CELL URINE 2 /hpf (0-5); URINE COLOR LIGHT-YELLOW (YELLW/STRAW)
[2016-12-14 15:49] LABS: COMMENT (UR) CATH-CULT NOT IND; CULTURE IF INDICATED CATH CULTURE NOT IND
[2016-12-14] MEDS ORDERED: IOHEXOL 350 MG/ML 10 ML VIAL (for RAD DIAG) IVCONTRAST ONE (16:23)
--- NOTE | 2016-12-14 16:36 | RADRPT ---
EXAM DATE/TIME: 12/14/2016 16:23 [facility] COMPARISON: CT BRAIN W/O CONTRAST, June 01, 2014, 0:14. INDICATIONS : Altered mental status. RADIATION DOSE: 36.45 CTDIvol (mGy) MEDICAL HISTORY : Stroke. Seizures. Hepatitis Cervical cancer SURGICAL HISTORY : Appendectomy. Cholecystectomy.Tubal ligation. ENCOUNTER: Initial ACUITY: 1 day PAIN SCALE: 0/10 LOCATION: Bilateral head TECHNIQUE: Multiple contiguous axial images were obtained of the head. Using automated exposure control and adj ustment of the mA and/or kV according to patient size, radiation dose was kept as low as reasonably a chievable to obtain optimal diagnostic quality images. DICOM format image data is available electro nically for review and comparison. FINDINGS: The exam is motion degraded. CEREBRUM: The ventricles are normal for age. No evidence of midline shift, mass lesion, hemorrhage or acute in farction. No extra-axial fluid collections are seen. POSTERIOR FOSSA: The cerebellum and brainstem are intact. The 4th ventricle is midline. The cerebellopontine angle i s unremarkable. EXTRACRANIAL: The visualized portion of the orbits is intact. SKULL: The calvaria is intact. No evidence of skull fracture. CONCLUSION: 1. Motion degraded exam. 2. No acute abnormality. Buzz Pena Jr., MD on December 14, 2016 at 16:33 Board Certified Radiologist. This report was verified electronically.
--- NOTE | 2016-12-14 16:47 | RADRPT ---
EXAM DATE/TIME: 12/14/2016 16:26 [facility] COMPARISON: CT ABDOMEN & PELVIS W CONTRAST, December 08, 2016, 1:47. INDICATIONS : Left lower abdomen pain. IV CONTRAST: 97 cc Omnipaque 350 (iohexol) IV ORAL CONTRAST: No oral contrast ingested. RADIATION DOSE: 9.97 CTDIvol (mGy) MEDICAL HISTORY : Stroke. hepatitis C, cervical cancer, hypertension SURGICAL HISTORY : Tubal ligation. Appendectomy.Cholecystectomy. ENCOUNTER: Initial ACUITY: 1 day PAIN SCALE: 7/10 LOCATION: Left lower quadrant TECHNIQUE: Volumetric scanning of the abdomen and pelvis was performed. Using automated exposure control and ad justment of the mA and/or kV according to patient size, radiation dose was kept as low as reasonably achievable to obtain optimal diagnostic quality images. DICOM format image data is available electro nically for review and comparison. FINDINGS: LOWER LUNGS: Areas of consolidation involving the lung bases bilaterally. The heart is at the upper limits of norm al in terms of size. No effusion. LIVER: Homogeneous density without lesion. There is no dilation of the biliary tree. No calcified gallston es. SPLEEN: Normal size without lesion. PANCREAS: Within normal limits. KIDNEYS: Normal in size and shape. There is no mass or hydronephrosis. There is a 2 mm nonobstructing left re nal stone. ADRENAL GLANDS: Within normal limits. VASCULAR: There is no aortic aneurysm. BOWEL/MESENTERY: The stomach, small bowel, and colon demonstrate no acute abnormality. There is no free intraperitone al air or fluid. ABDOMINAL WALL: Within normal limits. RETROPERITONEUM: There is no lymphadenopathy. BLADDER: No wall thickening or mass. REPRODUCTIVE: There is a 3.4 cm low-density mass involving the uterus. This is stable from the prior exam. A 4.3 cm cyst is seen involving the right adnexa. Hounsfield units are patent. This is slightly smaller from the prior study where it measured 5.6 cm. Fluid within the endometrial canal is again seen. No free f luid in the cul-de-sac. Left ovary is unremarkable. INGUINAL: There is no lymphadenopathy or hernia. MUSCULOSKELETAL: Within normal limits for patient age. CONCLUSION: 1. Right adnexal cyst is slightly smaller from prior exam. It measures 4.3 cm. 2. 3.4 cm mass along the uterus likely related to a fibroid. 3. Free fluid in the endometrial canal. 4. 2 mm nonobstructing left renal stone. 5. Top normal heart size. 6. Bibasilar atelectasis. Buzz Pena Jr., MD on December 14, 2016 at 16:38 Board Certified Radiologist. This report was verified electronically.
[2016-12-14] MEDS ORDERED: traMADol HCL 50 MG TAB PO ONE (17:00)
[2016-12-14] MEDS ORDERED: Vancomycin Consult Pharmacy 1 EA OTHER SCH (18:15)
[2016-12-14] MEDS ORDERED: VANCOMYCIN INJ 1,000 MG in SODIUM CHLOR 0.9% 250 ML INJ 250 ML IV ONE (18:15)
[2016-12-14] MEDS ORDERED: PIPERACIL-TAZO 4.5 GM PREMIX 100 ML IV ONE (18:15)
--- NOTE | 2016-12-14 18:22 | HHI.HP ---
[facility]ician No Primary Care Physician Admission Diagnosis ABDOMINAL PAIN , BACK PAIN Diagnoses: (1) PID (acute pelvic inflammatory disease) Diagnosis: Principal (2) Abdominal pain Diagnosis: Principal (3) Polysubstance abuse Diagnosis: Principal (4) Withdrawal syndrome Diagnosis: Secondary (5) Hypokalemia Diagnosis: Principal Chief Complaint: Abdominal pain Travel History International Travel<30 Days: No Contact w/Intl Traveler <30 Da: No Traveled to Known Affected Are: No Sepsis Criteria SIRS Criteria (2 or more): Temp > 100.9 or < 96.8, RR > 20 or PaCO2 < 32 History of Present Illness Ms. Pineda is a 46-year-old female patient with a known medical history of bipolar disorder, COPD, history of CVA, seizures, colitis and IVDU who presented to the ED with fevers and disorientation. Patient seen and examined in room, lying in bed. Awake and oriented, speech is garbled. States that she has been having continued pain in her pelvis and lower back. She also is complaining of intermittent nausea and vomiting since last admission. Patient does state that she last used Morphine PO on Thursday, denies any recent IVDU. Admits to recent fevers, chills, abdominal pain, headaches and dysuria. Denies any shortness of breath, chest pain. Recently hospitalized for intractable nausea and vomiting with diagnosis of PID, discharged on Doxycycline with recommendations of a repeat ultrasound in 6 weeks. With which the patient was noncompliant and did not finish course of antibiotic. I FEEL PATIENT ONLY BOUGHT HER PAIN MEDICATIONS AND DID NOT GET HER ANTIBIOTIC UNLESS IT WAS GIVEN TO HER FOR FREE Review of Systems Constitutional: COMPLAINS OF: Fever, Chills Respiratory: COMPLAINS OF: Wheezing, Shortness of breath, DENIES: Cough Cardiovascular: DENIES: Chest pain Gastrointestinal: COMPLAINS OF: Abdominal pain, Nausea, Vomiting, DENIES: Constipation, Diarrhea Genitourinary: COMPLAINS OF: Dysuria, DENIES: Hematuria Psychiatric: COMPLAINS OF: Anxiety, Mood changes Except as stated in HPI: all other systems reviewed are Neg Past Family Social History Past Medical History Hepatitis C Asthma COPD Depression Anxiety Bipolar disorder Questionable cervical cancer? History of CVA and seizures Colitis GERD Hypertension Insomnia Chronic back pain History of brain injury Migraines History of AL Past Surgical History Appendectomy Herniated lumbar discs Tubal ligation and D &C Left hand surgery Left foot surgery Reported Medications Active [place] (Hydrocodone-Acetaminophen) 5-325 mg Tab 1 Tab PO Q4H PRN Pantoprazole (Pantoprazole Sodium) 40 Mg Tab 40 Mg PO DAILY 30 Days Dicyclomine (Dicyclomine HCl) 20 Mg Tab 20 Mg PO TID PRN 30 Days Doxycycline Hyclate 100 Mg Cap 100 Mg PO BID 14 Days Gabapentin 600 Mg Tab 1,200 Mg PO BID Reported Clonidine (Clonidine HCl) 0.3 Mg Tab 0.3 Mg PO TID Zyprexa (Olanzapine) 15 Mg Tab 15 Mg PO DAILY Klonopin (Clonazepam) 2 Mg Tab 1 Mg PO TID Vistaril (Hydroxyzine Pamoate) 50 Mg Cap 100 Mg PO BID Allergies: Coded Allergies: Sulfa (Sulfonamide Antibiotics) (Unverified Allergy, Severe, Rash, ) magnesium (Unverified Adverse Reaction, Unknown, PRUITIC RASH, 12/14/16) magnesium sulfate (Unverified Adverse Reaction, Unknown, PRUITIC RASH, ) prochlorperazine (Unverified Adverse Reaction, Unknown, ANGINA, 12/14/16) terbutaline (Unverified Adverse Reaction, Unknown, HEART RATE ELEVATES, ) Active Ordered Medications Current Medications Sodium Chloride 1,000 ml @ 1,000 mls/hr Q1H ONCE IV Last administered on 12/14 14:45; Start 12/14/16 at 13:58; Stop 12/14/16 at 14:57; Status DC Acetaminophen (Tylenol) 325 mg ONCE ONCE PO Last administered on 12/14/16 14 :08; Start 12/14/16 at 14:15; Stop 12/14/16 at 14:16; Status DC Iohexol (Omnipaque 350 Inj) 97 ml STK-MED ONCE IVCONTRAST Last administered on 12/14/16 16:23; Start 12/14/16 at 16:23; Stop 12/14/16 at 16:30; Status DC Tramadol HCl (Ultram) 50 mg ONCE ONCE PO Last administered on 12/14/16t 17:04 ; Start 12/14/16 at 17:00; Stop 12/14/16 at 17:01; Status DC Vancomycin HCl 1000 mg/Sodium Chloride 250 ml @ 250 mls/hr ONCE ONCE IV ; Start 12/14/16 at 18:15; Stop 12/14/16 at 19:14 Pharmacy Profile Note 0 ml @ 0 mls/hr UNSCH OTHER ; Start 12/14/16 at 18:15 Piperacillin Sod/ Tazobactam Sod 100 ml @ 200 mls/hr ONCE ONCE IV ; Start at 18:15; Stop 12/14/16 at 18:44 Piperacillin Sod/ Tazobactam Sod 100 ml @ 200 mls/hr Q6H IV ; Start 12/15/16 at 00:00 Potassium Chloride (KCl) 40 meq ONCE ONCE PO ; Start 12/14/16 at 18:30; Stop 12/14/16 at 18:31; Status DC Potassium Chloride 100 ml @ 50 mls/hr BOLUS ONCE IV ; Start 12/14/16 at 18:30 ; Stop 12/14/16 at 20:29 Sodium Chloride 1,000 ml @ 84 mls/hr [id number] IV ; Start 12/14/16 at 18:30 Gabapentin (Neurontin) 1,200 mg BID PO ; Start 12/14/16 at 21:00; Status UNV Pantoprazole Sodium (Protonix) 40 mg DAILY PO ; Start 12/15/16 at 09:00; Status UNV Vancomycin HCl 1000 mg/Sodium Chloride 250 ml @ 250 mls/hr Q12H IV ; Start at 06:00 Miscellaneous Information SPECIFIC LAB TO BE ... ONCE ONCE .XX ; Start at 05:45; Stop 12/16/16 at 05:46 Family History Denies any significant family medical history. Social History Admits to smoking 5 cigarettes a day. Denies any alcohol use. Does admit to marijuana use and using Morphine PO last Thursday. Does have a history of IV Dilaudid use. Physical Exam Vital Signs Vital Signs Date Time Temp Pulse Resp B/P (MAP) Pulse Ox O2 Delivery O2 Flow Rate FiO2 12/14/16 17:00 94 16 144/96 (112) 95 Room Air 12/14/16 15:00 100 22 148/96 (113) 95 Room Air 12/14/16 14:02 18 96 Nasal Cannula 2.00 12/14/16 14:02 95 Room Air 12/14/16 13:50 101.2 102 18 151/101 (118) 100 Physical Exam GENERAL: This is a well-nourished, unkempt, disheveled female patient, lying in bed with complaint of severe abdominal pain. SKIN: No rashes. Warm and dry. HEENT: Atraumatic. Normocephalic. Pupils equal round and reactive. Extraocular motions intact. No scleral icterus. No injection or drainage. Nose without bleeding. Airway patent.TONGUE IS MIDLINE NECK: Trachea midline. No JVD. Supple. CARDIOVASCULAR: Regular rate and rhythm without murmurs, gallops, or rubs. S1 and S2 are present, no S3 and S4. RESPIRATORY: Wheezing noted throughout all lung galdamez, diminished air flow. Breath sounds equal bilaterally. GASTROINTESTINAL: Abdomen soft, nondistended. Active bowel sounds x 4q. : Right sided CVA tenderness. MUSCULOSKELETAL: Extremities without clubbing, cyanosis, or edema. No joint tenderness, effusion, or edema noted. NEUROLOGICAL: Awake and alert. Cranial nerves II through XII intact. Motor and sensory grossly within normal limits. Five out of 5 muscle strength in all muscle groups. Normal speech. INSIGHT AND JUDGEMENT IS POOR, MOOD AND BEHAVIOR IS INAPPROPRIATE Laboratory Laboratory Tests Test 12/14/16 14:30 12/14/16 15:05 White Blood Count 6.1 Red Blood Count 3.99 Hemoglobin 10.0 Hematocrit 30.9 Mean Corpuscular Volume 77.5 Mean Corpuscular Hemoglobin 25.2 Mean Corpuscular Hemoglobin Concent 32.5 Red Cell Distribution Width 19.0 Platelet Count 184 Mean Platelet Volume 8.8 Neutrophils (%) (Auto) 77.7 Lymphocytes (%) (Auto) 11.3 Monocytes (%) (Auto) 10.1 Eosinophils (%) (Auto) 0.5 Basophils (%) (Auto) 0.4 Neutrophils # (Auto) 4.8 Lymphocytes # (Auto) 0.7 Monocytes # (Auto) 0.6 Eosinophils # (Auto) 0.0 Basophils # (Auto) 0.0 CBC Comment DIFF FINAL Differential Comment Blood Urea Nitrogen 6 Creatinine 0.74 Random Glucose 103 Total Protein 6.6 Albumin 3.0 Calcium Level 8.1 Alkaline Phosphatase 104 Aspartate Amino Transf (AST/SGOT) 17 Alanine Aminotransferase (ALT/SGPT) 16 Total Bilirubin 0.5 Sodium Level 140 Potassium Level 3.1 Chloride Level 106 Carbon Dioxide Level 27.7 Anion Gap 6 Estimat Glomerular Filtration Rate 85 Lactic Acid Level 1.0 Ethyl Alcohol Level LESS THAN 3 Urine Color LIGHT-YELLOW Urine Turbidity CLEAR Urine pH 7.0 Urine Specific Stella 1.010 Urine Protein NEG Urine Glucose (UA) NEG Urine Ketones NEG Urine Occult Blood NEG Urine Nitrite NEG Urine Bilirubin NEG Urine Urobilinogen LESS THAN 2.0 Urine Leukocyte Esterase NEG Urine RBC LESS THAN 1 Urine Squamous Epithelial Cells 2 Microscopic Urinalysis Comment CATH-CULT NOT IND Urine Opiates Screen NEG Urine Barbiturates Screen NEG Urine Amphetamines Screen NEG Urine Benzodiazepines Screen NEG Urine Cocaine Screen NEG Urine Cannabinoids Screen POS Date/Time Source Procedure Growth Status 12/14/16 14:35 Blood Peripheral Aerobic Blood Culture Pending Received 12/14/16 14:35 Blood Peripheral Anaerobic Blood Culture Pending Received Result Diagram: 12/14/16 1430 12/14/16 1430 Imaging Last Impressions Head CT 12/14/161606 Signed Impressions: Service Date/Time: Wednesday, December 14, 2016 16:23 - CONCLUSION: 1. Motion degraded exam. 2. No acute abnormality. Buzz Pena Jr., MD Abdomen/Pelvis CT 12/14/161606 Signed Impressions: Service Date/Time: Wednesday, December 14, 2016 16:26 - CONCLUSION: 1. Right adnexal cyst is slightly smaller from prior exam. It measures 4.3 cm. 2. 3.4 cm mass along the uterus likely related to a fibroid. 3. Free fluid in the endometrial canal. 4. 2 mm nonobstructing left renal stone. 5. Top normal heart size. 6. Bibasilar atelectasis. Buzz Pena Jr., MD Caprini VTE Risk Assessment Caprini VTE Risk Assessment: No/Low Risk (score <= 1) Caprini Risk Assessment Model Point Value = 1 Point Value = 2 Point Value = 3 Point Value = 5 Age 41-60 Minor surgery BMI > 25 kg/m2 Swollen legs Varicose veins or History of unexplained or recurrent spontaneous Oral contraceptives or hormone replacement Sepsis (< 1 month) Serious lung disease, including pneumonia (< 1 month) Abnormal pulmonary function Acute myocardial infarction Congestive heart failure (< 1 month) History of inflammatory bowel disease Medical patient at bed rest Age 61-74 Arthroscopic surgery Major open surgery (> 45 min) Laparoscopic surgery (> 45 min) Malignancy Confined to bed (> 72 hours) Immobilizing plaster cast Central venous access Age >= 75 History of VTE Family history of VTE Factor V Leiden Prothrombin [id number] Lupus anticoagulant Anticardiolipin antibodies Elevated serum homocysteine Heparin-induced thrombocytopenia Other congenital or acquired thrombophilia Stroke (< 1 month) Elective arthroplasty Hip, pelvis, or leg fracture Acute spinal cord injury (< 1 month) Prophylaxis Regimen Total Risk Factor Score Risk Level Prophylaxis Regimen 0-1 Low Early ambulation 2 Moderate Order ONE of the following: *Sequential Compression Device (SCD) *Heparin 5000 units SQ BID 3-4 Higher Order ONE of the following medications: *Heparin 5000 units SQ TID *Enoxaparin/Lovenox 40 mg SQ daily (WT < 150 kg, CrCl > 30 mL/min) *Enoxaparin/Lovenox 30 mg SQ daily (WT < 150 kg, CrCl > 10-29 mL/min) *Enoxaparin/Lovenox 30 mg SQ BID (WT < 150 kg, CrCl > 30 mL/min) AND/OR *Sequential Compression Device (SCD) 5 or more Highest Order ONE of the following medications: *Heparin 5000 units SQ TID (Preferred with Epidurals) *Enoxaparin/Lovenox 40 mg SQ daily (WT < 150 kg, CrCl > 30 mL/min) *Enoxaparin/Lovenox 30 mg SQ daily (WT < 150 kg, CrCl > 10-29 mL/min) *Enoxaparin/Lovenox 30 mg SQ BID (WT < 150 kg, CrCl > 30 mL/min) AND *Sequential Compression Device (SCD) Assessment and Plan Assessment and Plan Ms. Pineda is a 46-year-old female patient with a known medical history of bipolar disorder, COPD, history of CVA, seizures, colitis and IVDU who presented to the ED with fevers and disorientation. Abdominal pain suspect secondary to PID vs tubo-ovarian abscess vs renal lithiasis Meets SIRS criteria (Tachycardia, febrile, tachypnea) - Head CT reviewed showing no acute abnormality. Abdomen/pelvis CT showing adnexal cyst, uterine fibroid and left nonobstructing renal stone measuring 2mm. - Previous abdominal CT reviewed showing right adnexal cyst vs tubo-ovarian abscess with findings of PID. Transvaginal ultrasound showed right adnexal cyst vs abscess. - UA reviewed and unremarkable. Blood cultures drawn and pending, follow. - Lactic acid 1.0. Febrile, 101.2. Ammonia level pending, follow. - Will start on IV Vanco and Zosyn IV. Pharmacy to dose. - CBC reviewed, showing microcytic hypochromic anemia, possibly chronic. Will trend CBC. No sxs of bleeding. - BMP reviewed, hypokalemia noted. Replace. - Control pain, PRN PO and IV medications available. - Tramadol PO given in ED. 1L NS bolus given in ED. Start on IVF, NS at 84 ml /hr. Ensure hydration. - Urine tox screen reviewed, significant for Cannibis. Polysubstance abuse Withdrawal syndrome - Reports recent Morphine use, last use on Thursday. Denies recent IVDU but admits to history of. Does have history of withdrawal seizure. Patient counselled on cessation. - Currently patient appears to be intoxicated or under the influence of chemical/drug, denies any recent substance use. Patient on multiple home medications for anxiety, will hold for now due to altered mental state. Continue to monitor. Will restart once stable and at baseline. Hypokalemia: K 3.1, will replace. Follow BMP in am. Check mag. Homeless: Patient reports staying with her daughter which reportedly is temporary and expresses concern regarding a place to stay when leaving here. Case management consulted for assistance with resources. GERD/GI prophylaxis: Protonix. DVT Prophylaxis: SCDs/TEDs. The exam, history, and the medical decision-making described in the above note were completed with the assistance of the mid-level provider. I reviewed and agree with the findings presented. I attest that I had a [id number] encounter with the patient on the same day, and personally performed and documented my assessment and findings in the medical record. Code Status FULL CODE Discussed Condition With MUNIRA RN AND PT AND SHAMPOO ASSISTANT AND ER Physician Certification 2 Midnight Certification Type: Admission for Inpatient Services Order for Inpatient Services The services are ordered in accordance with Medicare regulations or non- Medicare payer requirements, as applicable. In the case of services not specified as inpatient-only, they are appropriately provided as inpatient services in accordance with the 2-midnight benchmark. Estimated LOS (days): 4 4 days is the estimated time the patient will need to remain in the hospital, assuming treatment plan goals are met and no additional complications. Post-Hospital Plan: Home Shelbie Medel Dec 14, 2016 18:22 Shon Roman DO Dec 14, 2016 18:39
[2016-12-14] MEDS ORDERED: NALOXONE HCL 0.4 MG/ML AMP IV PUSH PRN (18:30)
[2016-12-14] MEDS ORDERED: POTASSIUM CHLOR 20 MEQ PREMIX 100 ML IV ONE (18:30)
[2016-12-14] MEDS ORDERED: BISACODYL 10 MG SUPP RECTAL PRN (18:30)
[2016-12-14] MEDS ORDERED: MORPHINE SULFATE 4 MG/ML INJ IV PUSH PRN (18:30)
[2016-12-14] MEDS ORDERED: LACTULOSE SYRUP 20 GM/30 ML CUP PO PRN (18:30)
[2016-12-14] MEDS: SODIUM CHLOR 0.9% 1000 ML INJ 1,000 ML IV SCH ×4 (18:30→21:47)
[2016-12-14] MEDS ORDERED: oxyCODONE/ACETAMINOPHEN 5 MG/325 MG TAB PO PRN (18:30)
[2016-12-14] MEDS ORDERED: MAGNESIUM HYDROXIDE SUSP 30 ML CUP PO PRN (18:30)
[2016-12-14] MEDS ORDERED: POTASSIUM CHLORIDE 10 MEQ CONTROLLED RELEASE TAB PO ONE (18:30)
[2016-12-14] MEDS ORDERED: SODIUM CHLORIDE 0.9% FLUSH 10 ML FLUSH IV FLUSH PRN (18:30)
[2016-12-14] MEDS ORDERED: ACETAMINOPHEN 325 MG TAB PO PRN ×2 (18:30)
[2016-12-14] MEDS ORDERED: SENNOSIDES 8.6 MG TAB PO PRN (18:30)
[2016-12-14] MEDS ORDERED: PROCHLORPERAZINE 25 MG SUPP RECTAL PRN (18:30)
[2016-12-14] MEDS ORDERED: RESP: ALBUTEROL 2.5 MG/IPRATROPIUM 0.5 MG NEB (PRN) NEB (18:45)
[2016-12-14] MEDS: ENOXAPARIN SODIUM 40 MG/0.4 ML SYRINGE SQ SCH (20:29)
[2016-12-14] MEDS: SODIUM CHLORIDE 0.9% FLUSH 10 ML FLUSH IV FLUSH SCH (20:29)
[2016-12-14] MEDS: guaiFENesin E.R. 600 MG TAB PO SCH (20:29)
[2016-12-14] MEDS: GABAPENTIN 400 MG CAP PO SCH (20:29)
[2016-12-14] MEDS: DOCUSATE SODIUM 50 MG/SENNA 8.6 MG TAB PO SCH (20:30)
[2016-12-14] MEDS: MORPHINE SULFATE 4 MG/ML INJ IV PUSH PRN ×2 (20:33→23:38)
[2016-12-14] MEDS: ONDANSETRON HCL 4 MG/2 ML VIAL IVP PRN (20:33)
[2016-12-14] MEDS: oxyCODONE/ACETAMINOPHEN 10 MG/325 MG TAB PO PRN (21:45)
[2016-12-14] MEDS: PIPERACIL-TAZO 4.5 GM PREMIX 100 ML IV SCH (23:09)
[2016-12-15] VITALS (9 sets, daily range): BP systolic 117–173; BP diastolic 70–97; PULSE 40–81; RESP 18–20; TEMP 97.5–98.2; O2SAT 92–95
[2016-12-15] MEDS: MORPHINE SULFATE 4 MG/ML INJ IV PUSH PRN ×5 (03:37→20:39)
[2016-12-15] MEDS: VANCOMYCIN 1,000 MG/NS 250 ML IV SCH ×4 (05:04→17:55)
[2016-12-15] MEDS: oxyCODONE/ACETAMINOPHEN 10 MG/325 MG TAB PO PRN ×4 (05:04→18:55)
[2016-12-15] MEDS: SODIUM CHLOR 0.9% 1000 ML INJ 1,000 ML IV SCH ×2 (05:07→17:55)
[2016-12-15] MEDS: PIPERACIL-TAZO 4.5 GM PREMIX 100 ML IV SCH ×4 (05:07→23:38)
[2016-12-15] MEDS: GABAPENTIN 400 MG CAP PO SCH ×2 (08:51→20:40)
[2016-12-15] MEDS: clonazePAM 1 MG TAB PO SCH ×3 (08:53→16:56)
[2016-12-15] MEDS: DOCUSATE SODIUM 50 MG/SENNA 8.6 MG TAB PO SCH ×2 (08:55→20:40)
[2016-12-15] MEDS: PANTOPRAZOLE SOD 40 MG DELAYED RELEASE TAB PO SCH (08:55)
[2016-12-15] MEDS: guaiFENesin E.R. 600 MG TAB PO SCH ×2 (08:55→20:40)
[2016-12-15] MEDS: SODIUM CHLORIDE 0.9% FLUSH 10 ML FLUSH IV FLUSH SCH ×2 (08:57→20:40)
[2016-12-15] MEDS: ONDANSETRON HCL 4 MG/2 ML VIAL IVP PRN ×2 (08:57→18:23)
[2016-12-15 08:59] LABS: AUTOMATED NEUTROPHIL # 2.7 TH/MM3 (1.8-7.7); BASOPHIL % 0.9 % (0.0-2.0); EOSINOPHIL # 0.1 TH/MM3 (0-0.4); EOSINOPHIL % 2.9 % (0.0-4.0); HEMATOCRIT 27.6 % (35.0-46.0); HEMO FLAGS DIFF FINAL; LYMPH % 26.9 % (9.0-44.0); LYMPHOCYTE # 1.3 TH/MM3 (1.0-4.8); MEAN CELL VOLUME 77.9 FL (80.0-100.0); MEAN CORPUSCULAR HEMOGLOBIN 25.2 PG (27.0-34.0); MEAN CORPUSCULAR HGB CONC 32.4 % (32.0-36.0); MONO % 14.9 % (0.0-8.0); NEUT % 54.4 % (16.0-70.0); PLATELET COUNT 166 TH/MM3 (150-450); RED BLOOD COUNT 3.55 MIL/MM3 (4.00-5.30); RED CELL DISTRIBUTION WIDTH 19.4 % (11.6-17.2)
[2016-12-15 09:29] LABS: ANION GAP 6 MEQ/L (5-15); AST (GOT) 18 U/L (15-37); BICARBONATE 25.9 MEQ/L (21.0-32.0); BLOOD UREA NITROGEN 5 MG/DL (7-18); CHLORIDE 109 MEQ/L (98-107); GLOMERULAR FILTRATION RATE 101 ML/MIN (>89); MAGNESIUM 1.9 MG/DL (1.5-2.5); POTASSIUM 3.8 MEQ/L (3.5-5.1); SODIUM (NA) 141 MEQ/L (136-145)
[2016-12-15 09:41] LABS: ALKALINE PHOSPHATASE 81 U/L (45-117); ALT (GPT) 15 U/L (10-53); FREE T4 0.81 NG/DL (0.76-1.46); TOTAL BILIRUBIN ADULT 0.4 MG/DL (0.2-1.0)
--- NOTE | 2016-12-15 10:57 | HHI.PR ---
Subjective Remarks Ms. Pineda is a 46-year-old female patient with a known medical history of bipolar disorder, COPD, history of CVA, seizures, colitis and IVDU who presented to the ED with fevers and disorientation. Patient seen and examined in room, lying in bed. Awake and oriented, speech is garbled. States that she has been having continued pain in her pelvis and lower back. She also is complaining of intermittent nausea and vomiting since last admission. Patient does state that she last used Morphine PO on Thursday, denies any recent IVDU. Admits to recent fevers, chills, abdominal pain, headaches and dysuria. Denies any shortness of breath, chest pain. Recently hospitalized for intractable nausea and vomiting with diagnosis of PID, discharged on Doxycycline with recommendations of a repeat ultrasound in 6 weeks. With which the patient was noncompliant and did not finish course of antibiotic. I FEEL PATIENT ONLY BOUGHT HER PAIN MEDICATIONS AND DID NOT GET HER ANTIBIOTIC UNLESS IT WAS GIVEN TO HER FOR FREE 12-15 patient wants her Zyprexa switched to at bedtime Patient wants medication for her hemorrhoids Patient wants a NicoDerm patch Patient needs Lactinex Patient is homeless Discussed with patient and RN Continue physical therapy and occupational therapy Home medications have been adjusted A.m. labs Watch fevers labs Objective Vitals Vital Signs Date Time Temp Pulse Resp B/P (MAP) Pulse Ox O2 Delivery O2 Flow Rate FiO2 12/15/16 09:23 95 12/15/16 08:41 97.7 81 18 137/70 (92) 95 12/15/16 04:00 98.2 70 20 149/90 (109) 95 12/15/16 00:02 93 12/15/16 00:00 97.8 72 20 159/85 (109) 95 12/14/16 22:00 72 12/14/16 20:00 97.8 84 17 152/80 (104) 95 12/14/16 19:32 12/14/16 18:51 93 21 12/14/16 17:00 94 16 144/96 (112) 95 Room Air 12/14/16 15:00 100 22 148/96 (113) 95 Room Air 12/14/16 14:02 18 96 Nasal Cannula 2.00 12/14/16 14:02 95 Room Air 12/14/16 13:50 101.2 102 18 151/101 (118) 100 I/O 12/14/16 12/14/16 12/14/16 12/15/16 12/15/16 12/15/16 07:00 15:00 23:00 07:00 15:00 23:00 Intake Total 1000 ml Balance 1000 ml Intake IV Total 1000 ml # Bowel Movements 1 Result Diagram: 12/15/16 0820 12/15/16 0820 Other Results Laboratory Tests Test 12/14/16 14:30 12/14/16 15:05 12/14/16 21:15 12/15/16 08:20 White Blood Count 6.1 TH/MM3 5.0 TH/MM3 Red Blood Count 3.99 MIL/MM3 3.55 MIL/MM3 Hemoglobin 10.0 GM/DL 9.0 GM/DL Hematocrit 30.9 % 27.6 % Mean Corpuscular Volume 77.5 FL 77.9 FL Mean Corpuscular Hemoglobin 25.2 PG 25.2 PG Mean Corpuscular Hemoglobin Concent 32.5 % 32.4 % Red Cell Distribution Width 19.0 % 19.4 % Platelet Count 184 TH/MM3 166 TH/MM3 Mean Platelet Volume 8.8 FL 9.1 FL Neutrophils (%) (Auto) 77.7 % 54.4 % Lymphocytes (%) (Auto) 11.3 % 26.9 % Monocytes (%) (Auto) 10.1 % 14.9 % Eosinophils (%) (Auto) 0.5 % 2.9 % Basophils (%) (Auto) 0.4 % 0.9 % Neutrophils # (Auto) 4.8 TH/MM3 2.7 TH/MM3 Lymphocytes # (Auto) 0.7 TH/MM3 1.3 TH/MM3 Monocytes # (Auto) 0.6 TH/MM3 0.7 TH/MM3 Eosinophils # (Auto) 0.0 TH/MM3 0.1 TH/MM3 Basophils # (Auto) 0.0 TH/MM3 0.0 TH/MM3 CBC Comment DIFF FINAL DIFF FINAL Differential Comment Blood Urea Nitrogen 6 MG/DL 5 MG/DL Creatinine 0.74 MG/DL 0.64 MG/DL Random Glucose 103 MG/DL 83 MG/DL Total Protein 6.6 GM/DL 5.8 GM/DL Albumin 3.0 GM/DL 2.7 GM/DL Calcium Level 8.1 MG/DL 8.3 MG/DL Alkaline Phosphatase 104 U/L 81 U/L Aspartate Amino Transf (AST/SGOT) 17 U/L 18 U/L Alanine Aminotransferase (ALT/SGPT) 16 U/L 15 U/L Total Bilirubin 0.5 MG/DL 0.4 MG/DL Sodium Level 140 MEQ/L 141 MEQ/L Potassium Level 3.1 MEQ/L 3.8 MEQ/L Chloride Level 106 MEQ/L 109 MEQ/L Carbon Dioxide Level 27.7 MEQ/L 25.9 MEQ/L Anion Gap 6 MEQ/L 6 MEQ/L Estimat Glomerular Filtration Rate 85 ML/MIN 101 ML/MIN Lactic Acid Level 1.0 mmol/L Magnesium Level 1.6 MG/DL 1.9 MG/DL Ethyl Alcohol Level LESS THAN 3 MG/DL Urine Color LIGHT-YELLOW Urine Turbidity CLEAR Urine pH 7.0 Urine Specific [place] 1.010 Urine Protein NEG mg/dL Urine Glucose (UA) NEG mg/dL Urine Ketones NEG mg/dL Urine Occult Blood NEG Urine Nitrite NEG Urine Bilirubin NEG Urine Urobilinogen LESS THAN 2.0 MG/DL Urine Leukocyte Esterase NEG Urine RBC LESS THAN 1 /hpf Urine Squamous Epithelial Cells 2 /hpf Microscopic Urinalysis Comment CATH-CULT NOT IND Urine Opiates Screen NEG Urine Barbiturates Screen NEG Urine Amphetamines Screen NEG Urine Benzodiazepines Screen NEG Urine Cocaine Screen NEG Urine Cannabinoids Screen POS Ammonia 29 MCMOL/L 36 MCMOL/L Phosphorus Level 2.6 MG/DL Free Thyroxine 0.81 NG/DL Thyroid Stimulating Hormone 3rd Gen 4.250 uIU/ML Imaging Last Impressions Head CT 12/14/16 1607 Signed Impressions: Service Date/Time: Wednesday, December 14, 2016 16:23 - CONCLUSION: 1. Motion degraded exam. 2. No acute abnormality. Buzz Pena Jr., MD Abdomen/Pelvis CT 12/14/16 1607 Signed Impressions: Service Date/Time: Wednesday, December 14, 2016 16:26 - CONCLUSION: 1. Right adnexal cyst is slightly smaller from prior exam. It measures 4.3 cm. 2. 3.4 cm mass along the uterus likely related to a fibroid. 3. Free fluid in the endometrial canal. 4. 2 mm nonobstructing left renal stone. 5. Top normal heart size. 6. Bibasilar atelectasis. Buzz Pena Jr., MD Objective Remarks GENERAL: Awake alert talkative and cooperative now. Patient is requesting pain medication still SKIN: Warm and dry. HEAD: Atraumatic. Normocephalic. EYES: Pupils equal and round. No scleral icterus. No injection or drainage. Extraocular muscles intact ENT: No nasal bleeding or discharge. Mucous membranes pink and moist. Tongue is midline NECK: Trachea midline. No JVD. Neck is supple CARDIOVASCULAR: Regular rate and rhythm. S1 and S2 no S3 or S4 no heave or thrill or rub or gallop RESPIRATORY: No accessory muscle use. Coarse breath sounds bilaterally. Breath sounds equal bilaterally. GASTROINTESTINAL: Abdomen soft, non-tender, nondistended. Hepatic and splenic margins not palpable. MUSCULOSKELETAL: Extremities without clubbing, cyanosis, or edema. No obvious deformities. NEUROLOGICAL: Awake and alert. No obvious cranial nerve deficits. Motor grossly within normal limits. 4 out of 5 muscle strength in the arms and legs. Normal speech. PSYCHIATRIC: INAppropriate mood and affect; insight and judgment ABnormal. Procedures none Medications and IVs Current Medications Sodium Chloride 1,000 ml @ 1,000 mls/hr Q1H ONCE IV Last administered on 12/14 14:45; Start 12/14/16 at 13:58; Stop 12/14/16 at 14:57; Status DC Acetaminophen (Tylenol) 325 mg ONCE ONCE PO Last administered on 12/14/16 14 :08; Start 12/14/16 at 14:15; Stop 12/14/16 at 14:16; Status DC Iohexol (Omnipaque 350 Inj) 97 ml STK-MED ONCE IVCONTRAST Last administered on 12/14/16 16:23; Start 12/14/16 at 16:23; Stop 12/14/16 at 16:30; Status DC Tramadol HCl (Ultram) 50 mg ONCE ONCE PO Last administered on 12/14/16 17:04 ; Start 12/14/16 at 17:00; Stop 12/14/16 at 17:01; Status DC Vancomycin HCl 1000 mg/Sodium Chloride 250 ml @ 250 mls/hr ONCE ONCE IV Last administered on 12/14/16 20:31; Start 12/14/16 at 18:15; Stop 12/14/16 at 19 :14; Status DC Pharmacy Profile Note 0 ml @ 0 mls/hr UNSCH OTHER ; Start 12/14/16 at 18:15 Piperacillin Sod/ Tazobactam Sod 100 ml @ 200 mls/hr ONCE ONCE IV Last administered on 12/14/16 18:55; Start 12/14/16 at 18:15; Stop 12/14/16 at 18 :44; Status DC Piperacillin Sod/ Tazobactam Sod 100 ml @ 200 mls/hr Q6H IV Last administered on 12/15/16 05:07; Start 12/15/16 at 00:00 Potassium Chloride (KCl) 40 meq ONCE ONCE PO Last administered on 12/14/16 20:30; Start 12/14/16 at 18:30; Stop 12/14/16 at 18:31; Status DC Potassium Chloride 100 ml @ 50 mls/hr BOLUS ONCE IV Last administered on 00:46; Start 12/14/16 at 18:30; Stop 12/14/16 at 20:29; Status DC Sodium Chloride 1,000 ml @ 84 mls/hr [id number] IV Last administered on 05:07; Start 12/14/16 at 18:30 Gabapentin (Neurontin) 1,200 mg BID PO Last administered on 12/15/16 08:51; Start 12/14/16 at 21:00 Pantoprazole Sodium (Protonix) 40 mg DAILY PO Last administered on 12/15/16 08:55; Start 12/15/16 at 09:00 Vancomycin HCl 1000 mg/Sodium Chloride 250 ml @ 250 mls/hr Q12H IV Last administered on 12/15/16 05:04; Start 12/15/16 at 06:00 Miscellaneous Information SPECIFIC LAB TO BE ... ONCE ONCE .XX ; Start at 05:45; Stop 12/16/16 at 05:46 Sodium Chloride 1,000 ml @ 100 mls/hr Q10H IV Last administered on 12/14/16 20:31; Start 12/14/16 at 18:29 Sodium Chloride (NS Flush) 2 ml UNSCH PRN IV FLUSH FLUSH AFTER USING IV ACCESS ; Start 12/14/16 at 18:30 Sodium Chloride (NS Flush) 2 ml BID IV FLUSH Last administered on 12/14/16 20 :29; Start 12/14/16 at 21:00 Acetaminophen (Tylenol) 650 mg Q4H PRN PO TEMP > 100.4; Start 12/14/16 at 18: 30 Ondansetron HCl (Zofran Inj) 4 mg Q6H PRN IVP NAUSEA OR VOMITING Last administered on 12/15/16 08:57; Start 12/14/16 at 18:30 Prochlorperazine (Compazine Supp) 25 mg Q12H PRN RECTAL NAUSEA OR VOMITING; Start 12/14/16 at 18:30 Enoxaparin Sodium (Lovenox Inj) 40 mg Q24H SQ Last administered on 12/14/16 20:29; Start 12/14/16 at 20:00 Acetaminophen (Tylenol) 650 mg Q6H PRN PO PAIN SCALE 1 TO 2; Start 12/14/16 at 18:30 Oxycodone/ Acetaminophen (Percocet 5-325 Mg) 1 tab Q6H PRN PO PAIN SCALE 3 TO 5; Start 12/14/16 at 18:30 Oxycodone/ Acetaminophen (Percocet 10-325 Mg) 1 tab Q6H PRN PO PAIN SCALE 6 TO 10 Last administered on 12/15/16 05:04; Start 12/14/16 at 18:30 Morphine Sulfate (Morphine Inj) 2 mg Q3H PRN IV PUSH Pain 3-5; if unable to take PO; Start 12/14/16 at 18:30 Morphine Sulfate (Morphine Inj) 4 mg Q3H PRN IV PUSH Pain 6-10;if unable to take PO Last administered on 12/15/16 07:51; Start 12/14/16 at 18:30 Naloxone HCl (Narcan Inj) 0.4 mg UNSCH PRN IV PUSH SEE LABEL COMMENTS; Start 12/14/16 at 18:30 Senna/Docusate Sodium (Ramona-Colace) 1 tab BID PO Last administered on 20:30; Start 12/14/16 at 21:00 Magnesium Hydroxide (Milk Of Magnesia Liq) 30 ml Q12H PRN PO Mild constipation ; Start 12/14/16 at 18:30 Sennosides (Senokot) 17.2 mg Q12H PRN PO Moderate constipation; Start at 18:30 Bisacodyl (Dulcolax Supp) 10 mg DAILY PRN RECTAL SEVERE CONSITIPATION; Start 12/14/16 at 18:30 Lactulose (Lactulose Liq) 30 ml DAILY PRN PO SEVERE CONSITIPATION; Start 12/14 at 18:30 Albuterol/ Ipratropium (Duoneb Neb) 1 ampule Q4HR NEB PRN NEB SHORTNESS OF BREATH; Start 12/14/16 at 18:45 Guaifenesin (Mucinex Er) 600 mg BID PO Last administered on 12/15/16 08:55; Start 12/14/16 at 21:00 Clonazepam (KlonoPIN) 1 mg TID PO Last administered on 12/15/16 08:53; Start 12/15/16 at 09:00 Hydroxyzine Pamoate (Vistaril) 100 mg BID PO Last administered on 12/15/16 08 :56; Start 12/14/16 at 21:45 Olanzapine (ZyPREXA) 15 mg DAILY PO Last administered on 12/15/16 08:54; Start 12/15/16 at 09:00 Urinary Catheter: No Vascular Central Line Catheter: No A/P Problem List: (1) PID (acute pelvic inflammatory disease) ICD Code: N73.0 - Acute parametritis and pelvic cellulitis Status: Acute (2) Abdominal pain ICD Code: R10.9 - Unspecified abdominal pain Status: Acute (3) Polysubstance abuse ICD Code: F19.10 - Other psychoactive substance abuse, uncomplicated Status: Chronic (4) Withdrawal syndrome ICD Code: F19.939 - Other psychoactive substance use, unspecified with withdrawal, unspecified (5) Hypokalemia ICD Code: E87.6 - Hypokalemia Status: Acute Assessment and Plan Ms. Pineda is a 46-year-old female patient with a known medical history of bipolar disorder, COPD, history of CVA, seizures, colitis and IVDU who presented to the ED with fevers and disorientation. Abdominal pain suspect secondary to PID vs tubo-ovarian abscess vs renal lithiasis Meets SIRS criteria (Tachycardia, febrile, tachypnea) - Head CT reviewed showing no acute abnormality. Abdomen/pelvis CT showing adnexal cyst, uterine fibroid and left nonobstructing renal stone measuring 2mm. - Previous abdominal CT reviewed showing right adnexal cyst vs tubo-ovarian abscess with findings of PID. Transvaginal ultrasound showed right adnexal cyst vs abscess. - UA reviewed and unremarkable. Blood cultures drawn and pending, follow. - Lactic acid 1.0. Febrile, 101.2. Ammonia level pending, follow. - Will start on IV Vanco and Zosyn IV. Pharmacy to dose. - CBC reviewed, showing microcytic hypochromic anemia, possibly chronic. Will trend CBC. No sxs of bleeding. - BMP reviewed, hypokalemia noted. Replace. - Control pain, PRN PO and IV medications available. - Tramadol PO given in ED. 1L NS bolus given in ED. Start on IVF, NS at 84 ml /hr. Ensure hydration. - Urine tox screen reviewed, significant for Cannibis. Polysubstance abuse Withdrawal syndrome - Reports recent Morphine use, last use on Thursday. Denies recent IVDU but admits to history of. Does have history of withdrawal seizure. Patient counselled on cessation. - Currently patient appears to be intoxicated or under the influence of chemical/drug, denies any recent substance use. Patient on multiple home medications for anxiety, will hold for now due to altered mental state. Continue to monitor. Will restart once stable and at baseline. Hypokalemia: K 3.1, will replace. Follow BMP in am. Check mag. Homeless: Patient reports staying with her daughter which reportedly is temporary and expresses concern regarding a place to stay when leaving here. Case management consulted for assistance with resources. Tobacco abuse smoking cessation recommended continue on NicoDerm patch Anxiety continue on Zyprexa at bedtime Anemia monitor HEMORRHOIDS ANUSOL SUPPOSITORIES GERD/GI prophylaxis: Protonix. DVT Prophylaxis: SCDs/TEDs. AM LABS Discharge Planning AM LABS Shon Roman DO Dec 15, 2016 10:57
[2016-12-15] MEDS: HYDROCORTISONE ACETATE 25 MG SUPP RECTAL SCH ×2 (12:03→16:56)
[2016-12-15] MEDS: cloNIDine HCL 0.3 MG TAB PO SCH ×2 (12:04→16:55)
[2016-12-15] MEDS: LACTOBACILLUS ACIDOPHILUS TAB PO SCH ×2 (12:05→16:55)
[2016-12-15] MEDS: DOXYCYCLINE HYCLATE 100 MG CAP PO SCH ×2 (12:06→20:40)
[2016-12-15] MEDS: LEVOTHYROXINE SODIUM 25 MCG TAB PO SCH (12:06)
[2016-12-15] MEDS: NICOTINE 14 MG/24 HR PATCH T-DERMAL SCH (12:06)
[2016-12-15] MEDS: DICYCLOMINE HCL 20 MG TAB PO PRN (16:55)
[2016-12-15 17:00] LABS: HEMOGLOBIN A1a 1.4 %; HEMOGLOBIN A1b 1.7 %; HEMOGLOBIN Ao 84.6 %; HEMOGLOBIN P3 3.6 %
[2016-12-15] MEDS: ENOXAPARIN SODIUM 40 MG/0.4 ML SYRINGE SQ SCH (20:41)
[2016-12-16] VITALS (12 sets, daily range): BP systolic 155–188; BP diastolic 82–102; PULSE 40–75; RESP 16–20; TEMP 94.4–98.9; O2SAT 90–97
[2016-12-16] MEDS: MORPHINE SULFATE 4 MG/ML INJ IV PUSH PRN ×2 (01:23→08:05)
[2016-12-16] MEDS ORDERED: hydrALAZINE HCL 50 MG TAB PO ONE ×2 (03:45)
[2016-12-16] MEDS ORDERED: PHARMACY ORDERED LAB ONE (05:45)
[2016-12-16] MEDS: SODIUM CHLOR 0.9% 1000 ML INJ 1,000 ML IV SCH ×3 (06:19→21:34)
[2016-12-16] MEDS: PIPERACIL-TAZO 4.5 GM PREMIX 100 ML IV SCH ×4 (06:20→23:40)
[2016-12-16] MEDS: LEVOTHYROXINE SODIUM 25 MCG TAB PO SCH (06:20)
[2016-12-16] MEDS: VANCOMYCIN 1,000 MG/NS 250 ML IV SCH ×2 (06:20)
[2016-12-16] MEDS: oxyCODONE/ACETAMINOPHEN 10 MG/325 MG TAB PO PRN ×4 (07:10→21:19)
[2016-12-16 07:16] LABS: VANCOMYCIN TROUGH 10.6 MCG/ML (5.0-10.0)
[2016-12-16] MEDS: PANTOPRAZOLE SOD 40 MG DELAYED RELEASE TAB PO SCH (08:01)
[2016-12-16] MEDS: guaiFENesin E.R. 600 MG TAB PO SCH ×2 (08:01→21:26)
[2016-12-16] MEDS: GABAPENTIN 400 MG CAP PO SCH ×2 (08:02→21:26)
[2016-12-16] MEDS: LACTOBACILLUS ACIDOPHILUS TAB PO SCH ×3 (08:02→17:55)
[2016-12-16] MEDS: clonazePAM 1 MG TAB PO SCH ×3 (08:02→17:53)
[2016-12-16] MEDS: HYDROCORTISONE ACETATE 25 MG SUPP RECTAL SCH ×3 (08:03→17:55)
[2016-12-16] MEDS: DOXYCYCLINE HYCLATE 100 MG CAP PO SCH ×2 (08:03→21:27)
[2016-12-16] MEDS: NICOTINE 14 MG/24 HR PATCH T-DERMAL SCH (08:04)
[2016-12-16] MEDS: cloNIDine HCL 0.3 MG TAB PO SCH ×3 (08:04→17:54)
[2016-12-16] MEDS: SODIUM CHLORIDE 0.9% FLUSH 10 ML FLUSH IV FLUSH SCH ×2 (08:05→21:00)
[2016-12-16] MEDS: REMOVE OLD PATCH T-DERMAL SCH (08:05)
[2016-12-16 08:15] LABS: AUTOMATED NEUTROPHIL # 2.9 TH/MM3 (1.8-7.7); BASOPHIL % 0.9 % (0.0-2.0); EOSINOPHIL # 0.2 TH/MM3 (0-0.4); EOSINOPHIL % 2.9 % (0.0-4.0); HEMATOCRIT 30.5 % (35.0-46.0); HEMO FLAGS DIFF FINAL; LYMPH % 29.4 % (9.0-44.0); LYMPHOCYTE # 1.5 TH/MM3 (1.0-4.8); MEAN CELL VOLUME 78.1 FL (80.0-100.0); MEAN CORPUSCULAR HEMOGLOBIN 24.9 PG (27.0-34.0); MEAN CORPUSCULAR HGB CONC 31.9 % (32.0-36.0); MONO % 11.3 % (0.0-8.0); NEUT % 55.5 % (16.0-70.0); PLATELET COUNT 176 TH/MM3 (150-450); RED CELL DISTRIBUTION WIDTH 19.7 % (11.6-17.2); WHITE BLOOD COUNT 5.3 TH/MM3 (4.0-11.0)
[2016-12-16 08:50] LABS: ALT (GPT) 22 U/L (10-53); ANION GAP 6 MEQ/L (5-15); BICARBONATE 25.1 MEQ/L (21.0-32.0); BLOOD UREA NITROGEN 4 MG/DL (7-18); CHLORIDE 108 MEQ/L (98-107); GLOMERULAR FILTRATION RATE 96 ML/MIN (>89); MAGNESIUM 2.2 MG/DL (1.5-2.5); POTASSIUM 4.1 MEQ/L (3.5-5.1); SODIUM (NA) 139 MEQ/L (136-145)
[2016-12-16 08:52] LABS: ALKALINE PHOSPHATASE 114 U/L (45-117); AST (GOT) 23 U/L (15-37); TOTAL BILIRUBIN ADULT 0.5 MG/DL (0.2-1.0)
[2016-12-16] MEDS: DOCUSATE SODIUM 50 MG/SENNA 8.6 MG TAB PO SCH ×2 (09:00→21:27)
[2016-12-16] MEDS ORDERED: LISINOPRIL 10 MG TAB PO SCH (09:00)
--- NOTE | 2016-12-16 10:29 | HHI.PR ---
Subjective Remarks Ms. Pineda is a 46-year-old female patient with a known medical history of bipolar disorder, COPD, history of CVA, seizures, colitis and IVDU who presented to the ED with fevers and disorientation. Patient seen and examined in room, lying in bed. Awake and oriented, speech is garbled. States that she has been having continued pain in her pelvis and lower back. She also is complaining of intermittent nausea and vomiting since last admission. Patient does state that she last used Morphine PO on Thursday, denies any recent IVDU. Admits to recent fevers, chills, abdominal pain, headaches and dysuria. Denies any shortness of breath, chest pain. Recently hospitalized for intractable nausea and vomiting with diagnosis of PID, discharged on Doxycycline with recommendations of a repeat ultrasound in 6 weeks. With which the patient was noncompliant and did not finish course of antibiotic. I FEEL PATIENT ONLY BOUGHT HER PAIN MEDICATIONS AND DID NOT GET HER ANTIBIOTIC UNLESS IT WAS GIVEN TO HER FOR FREE 12-15 patient wants her Zyprexa switched to at bedtime Patient wants medication for her hemorrhoids Patient wants a NicoDerm patch Patient needs Lactinex Patient is homeless Discussed with patient and RN Continue physical therapy and occupational therapy Home medications have been adjusted A.m. labs Watch fevers labs 12-16 PATIENT IS ACTIVELY DRUG SEEKING WANTS PAIN MEDS AND ANXIETY MEDS ADJUST BP MEDS DW RN AND PT AND FAMILY DC IV PAIN MEDS Objective Vitals Vital Signs Date Time Temp Pulse Resp B/P (MAP) Pulse Ox O2 Delivery O2 Flow Rate FiO2 12/16/16 08:32 97.1 74 18 169/102 (124) 94 12/16/16 05:39 94.4 40 20 183/88 (119) 90 12/16/16 03:35 41 18 180/85 (116) 94 12/16/16 01:28 18 12/16/16 01:19 97.3 56 18 156/86 (109) 93 12/16/16 01:08 97.5 40 18 170/82 (111) 91 12/16/16 00:53 58 12/15/16 23:38 97.5 40 18 170/82 (111) 92 12/15/16 22:06 97.8 52 20 172/97 (122) 93 12/15/16 19:58 18 12/15/16 16:29 98.2 56 18 117/71 (86) 93 12/15/16 13:00 98.2 74 18 173/92 (119) 94 I/O 12/15/16 12/15/16 12/15/16 12/16/16 12/16/16 12/16/16 07:00 15:00 23:00 07:00 15:00 23:00 Intake Total 960 ml 900 ml 720 ml 250 ml Balance 960 ml 900 ml 720 ml 250 ml Intake Oral 960 ml 620 ml IV Total 900 ml 100 ml 250 ml # Voids 3 2 # Bowel Movements 1 1 Result Diagram: [id number]/16/1671812/16/16718 Other Results Laboratory Tests Test 12/14/16 14:30 12/14/16 15:05 12/14/16 21:15 12/15/16 08:20 White Blood Count 6.1 TH/MM3 5.0 TH/MM3 Red Blood Count 3.99 MIL/MM3 3.55 MIL/MM3 Hemoglobin 10.0 GM/DL 9.0 GM/DL Hematocrit 30.9 % 27.6 % Mean Corpuscular Volume 77.5 FL 77.9 FL Mean Corpuscular Hemoglobin 25.2 PG 25.2 PG Mean Corpuscular Hemoglobin Concent 32.5 % 32.4 % Red Cell Distribution Width 19.0 % 19.4 % Platelet Count 184 TH/MM3 166 TH/MM3 Mean Platelet Volume 8.8 FL 9.1 FL Neutrophils (%) (Auto) 77.7 % 54.4 % Lymphocytes (%) (Auto) 11.3 % 26.9 % Monocytes (%) (Auto) 10.1 % 14.9 % Eosinophils (%) (Auto) 0.5 % 2.9 % Basophils (%) (Auto) 0.4 % 0.9 % Neutrophils # (Auto) 4.8 TH/MM3 2.7 TH/MM3 Lymphocytes # (Auto) 0.7 TH/MM3 1.3 TH/MM3 Monocytes # (Auto) 0.6 TH/MM3 0.7 TH/MM3 Eosinophils # (Auto) 0.0 TH/MM3 0.1 TH/MM3 Basophils # (Auto) 0.0 TH/MM3 0.0 TH/MM3 CBC Comment DIFF FINAL DIFF FINAL Differential Comment Blood Urea Nitrogen 6 MG/DL 5 MG/DL Creatinine 0.74 MG/DL 0.64 MG/DL Random Glucose 103 MG/DL 83 MG/DL Total Protein 6.6 GM/DL 5.8 GM/DL Albumin 3.0 GM/DL 2.7 GM/DL Calcium Level 8.1 MG/DL 8.3 MG/DL Alkaline Phosphatase 104 U/L 81 U/L Aspartate Amino Transf (AST/SGOT) 17 U/L 18 U/L Alanine Aminotransferase (ALT/SGPT) 16 U/L 15 U/L Total Bilirubin 0.5 MG/DL 0.4 MG/DL Sodium Level 140 MEQ/L 141 MEQ/L Potassium Level 3.1 MEQ/L 3.8 MEQ/L Chloride Level 106 MEQ/L 109 MEQ/L Carbon Dioxide Level 27.7 MEQ/L 25.9 MEQ/L Anion Gap 6 MEQ/L 6 MEQ/L Estimat Glomerular Filtration Rate 85 ML/MIN 101 ML/MIN Lactic Acid Level 1.0 mmol/L Magnesium Level 1.6 MG/DL 1.9 MG/DL Ethyl Alcohol Level LESS THAN 3 MG/DL Urine Color LIGHT-YELLOW Urine Turbidity CLEAR Urine pH 7.0 Urine Specific [place] 1.010 Urine Protein NEG mg/dL Urine Glucose (UA) NEG mg/dL Urine Ketones NEG mg/dL Urine Occult Blood NEG Urine Nitrite NEG Urine Bilirubin NEG Urine Urobilinogen LESS THAN 2.0 MG/DL Urine Leukocyte Esterase NEG Urine RBC LESS THAN 1 /hpf Urine Squamous Epithelial Cells 2 /hpf Microscopic Urinalysis Comment CATH-CULT NOT IND Urine Opiates Screen NEG Urine Barbiturates Screen NEG Urine Amphetamines Screen NEG Urine Benzodiazepines Screen NEG Urine Cocaine Screen NEG Urine Cannabinoids Screen POS Ammonia 29 MCMOL/L 36 MCMOL/L Phosphorus Level 2.6 MG/DL Hemoglobin A1c 6.1 % Free Thyroxine 0.81 NG/DL Thyroid Stimulating Hormone 3rd Gen 4.250 uIU/ML Test 12/16/16 06:04 12/16/16 07:19 Creatinine 0.66 MG/DL 0.67 MG/DL Estimat Glomerular Filtration Rate 97 ML/MIN 96 ML/MIN Vancomycin Level Trough 10.6 MCG/ML White Blood Count 5.3 TH/MM3 Red Blood Count 3.90 MIL/MM3 Hemoglobin 9.7 GM/DL Hematocrit 30.5 % Mean Corpuscular Volume 78.1 FL Mean Corpuscular Hemoglobin 24.9 PG Mean Corpuscular Hemoglobin Concent 31.9 % Red Cell Distribution Width 19.7 % Platelet Count 176 TH/MM3 Mean Platelet Volume 9.7 FL Neutrophils (%) (Auto) 55.5 % Lymphocytes (%) (Auto) 29.4 % Monocytes (%) (Auto) 11.3 % Eosinophils (%) (Auto) 2.9 % Basophils (%) (Auto) 0.9 % Neutrophils # (Auto) 2.9 TH/MM3 Lymphocytes # (Auto) 1.5 TH/MM3 Monocytes # (Auto) 0.6 TH/MM3 Eosinophils # (Auto) 0.2 TH/MM3 Basophils # (Auto) 0.0 TH/MM3 CBC Comment DIFF FINAL Differential Comment Blood Urea Nitrogen 4 MG/DL Random Glucose 99 MG/DL Total Protein 6.7 GM/DL Albumin 2.9 GM/DL Calcium Level 8.3 MG/DL Phosphorus Level 2.6 MG/DL Magnesium Level 2.2 MG/DL Alkaline Phosphatase 114 U/L Aspartate Amino Transf (AST/SGOT) 23 U/L Alanine Aminotransferase (ALT/SGPT) 22 U/L Total Bilirubin 0.5 MG/DL Sodium Level 139 MEQ/L Potassium Level 4.1 MEQ/L Chloride Level 108 MEQ/L Carbon Dioxide Level 25.1 MEQ/L Anion Gap 6 MEQ/L Imaging Last Impressions Head CT 12/14/16 1607 Signed Impressions: Service Date/Time: Wednesday, December 14, 2016 16:23 - CONCLUSION: 1. Motion degraded exam. 2. No acute abnormality. Buzz Pena Jr., MD Abdomen/Pelvis CT 12/14/16 1607 Signed Impressions: Service Date/Time: Wednesday, December 14, 2016 16:26 - CONCLUSION: 1. Right adnexal cyst is slightly smaller from prior exam. It measures 4.3 cm. 2. 3.4 cm mass along the uterus likely related to a fibroid. 3. Free fluid in the endometrial canal. 4. 2 mm nonobstructing left renal stone. 5. Top normal heart size. 6. Bibasilar atelectasis. Buzz Pena Jr., MD Objective Remarks GENERAL: Awake alert talkative and cooperative now. Patient is requesting pain medication still SKIN: Warm and dry. HEAD: Atraumatic. Normocephalic. EYES: Pupils equal and round. No scleral icterus. No injection or drainage. Extraocular muscles intact ENT: No nasal bleeding or discharge. Mucous membranes pink and moist. Tongue is midline NECK: Trachea midline. No JVD. Neck is supple CARDIOVASCULAR: Regular rate and rhythm. S1 and S2 no S3 or S4 no heave or thrill or rub or gallop RESPIRATORY: No accessory muscle use. Coarse breath sounds bilaterally. Breath sounds equal bilaterally. GASTROINTESTINAL: Abdomen soft, non-tender, nondistended. Hepatic and splenic margins not palpable. MUSCULOSKELETAL: Extremities without clubbing, cyanosis, or edema. No obvious deformities. NEUROLOGICAL: Awake and alert. No obvious cranial nerve deficits. Motor grossly within normal limits. 4 out of 5 muscle strength in the arms and legs. Normal speech. PSYCHIATRIC: INAppropriate mood and affect; insight and judgment ABnormal. Procedures none Medications and IVs Current Medications Sodium Chloride 1,000 ml @ 1,000 mls/hr Q1H ONCE IV Last administered on 12/14 14:45; Start 12/14/16 at 13:58; Stop 12/14/16 at 14:57; Status DC Acetaminophen (Tylenol) 325 mg ONCE ONCE PO Last administered on 12/14/16 14 :08; Start 12/14/16 at 14:15; Stop 12/14/16 at 14:16; Status DC Iohexol (Omnipaque 350 Inj) 97 ml STK-MED ONCE IVCONTRAST Last administered on 12/14/16 16:23; Start 12/14/16 at 16:23; Stop 12/14/16 at 16:30; Status DC Tramadol HCl (Ultram) 50 mg ONCE ONCE PO Last administered on 12/14/16 17:04 ; Start 12/14/16 at 17:00; Stop 12/14/16 at 17:01; Status DC Vancomycin HCl 1000 mg/Sodium Chloride 250 ml @ 250 mls/hr ONCE ONCE IV Last administered on 12/14/16 20:31; Start 12/14/16 at 18:15; Stop 12/14/16 at 19 :14; Status DC Pharmacy Profile Note 0 ml @ 0 mls/hr UNSCH OTHER ; Start 12/14/16 at 18:15 Piperacillin Sod/ Tazobactam Sod 100 ml @ 200 mls/hr ONCE ONCE IV Last administered on 12/14/16 18:55; Start 12/14/16 at 18:15; Stop 12/14/16 at 18 :44; Status DC Piperacillin Sod/ Tazobactam Sod 100 ml @ 200 mls/hr Q6H IV Last administered on 12/16/16 06:20; Start 12/15/16 at 00:00 Potassium Chloride (KCl) 40 meq ONCE ONCE PO Last administered on 12/14/16 20:30; Start 12/14/16 at 18:30; Stop 12/14/16 at 18:31; Status DC Potassium Chloride 100 ml @ 50 mls/hr BOLUS ONCE IV Last administered on 00:46; Start 12/14/16 at 18:30; Stop 12/14/16 at 20:29; Status DC Sodium Chloride 1,000 ml @ 84 mls/hr [id number] IV Last administered on 06:19; Start 12/14/16 at 18:30 Gabapentin (Neurontin) 1,200 mg BID PO Last administered on 12/16/16 08:02; Start 12/14/16 at 21:00 Pantoprazole Sodium (Protonix) 40 mg DAILY PO Last administered on 12/16/16 08:01; Start 12/15/16 at 09:00 Vancomycin HCl 1000 mg/Sodium Chloride 250 ml @ 250 mls/hr Q12H IV Last administered on 12/16/16 06:20; Start 12/15/16 at 06:00; Stop 12/16/16 at 09 :48; Status DC Miscellaneous Information SPECIFIC LAB TO BE NIELS... ONCE ONCE .XX Last administered on 12/16/16 05:45; Start 12/16/16 at 05:45; Stop 12/16/16 at 05 :46; Status DC Sodium Chloride 1,000 ml @ 100 mls/hr Q10H IV Last administered on 12/14/16 20:31; Start 12/14/16 at 18:29; Stop 12/15/16 at 11:41; Status DC Sodium Chloride (NS Flush) 2 ml UNSCH PRN IV FLUSH FLUSH AFTER USING IV ACCESS ; Start 12/14/16 at 18:30 Sodium Chloride (NS Flush) 2 ml BID IV FLUSH Last administered on 12/15/16 20 :40; Start 12/14/16 at 21:00 Acetaminophen (Tylenol) 650 mg Q4H PRN PO TEMP > 100.4; Start 12/14/16 at 18: 30 Ondansetron HCl (Zofran Inj) 4 mg Q6H PRN IVP NAUSEA OR VOMITING Last administered on 12/15/16 18:23; Start 12/14/16 at 18:30 Prochlorperazine (Compazine Supp) 25 mg Q12H PRN RECTAL NAUSEA OR VOMITING; Start 12/14/16 at 18:30 Enoxaparin Sodium (Lovenox Inj) 40 mg Q24H SQ Last administered on 12/15/16 20:41; Start 12/14/16 at 20:00 Acetaminophen (Tylenol) 650 mg Q6H PRN PO PAIN SCALE 1 TO 2; Start 12/14/16 at 18:30 Oxycodone/ Acetaminophen (Percocet 5-325 Mg) 1 tab Q6H PRN PO PAIN SCALE 3 TO 5; Start 12/14/16 at 18:30 Oxycodone/ Acetaminophen (Percocet 10-325 Mg) 1 tab Q6H PRN PO PAIN SCALE 6 TO 10 Last administered on 12/16/16 07:10; Start 12/14/16 at 18:30 Morphine Sulfate (Morphine Inj) 2 mg Q3H PRN IV PUSH Pain 3-5; if unable to take PO; Start 12/14/16 at 18:30 Morphine Sulfate (Morphine Inj) 4 mg Q3H PRN IV PUSH Pain 6-10;if unable to take PO Last administered on 12/16/16 08:05; Start 12/14/16 at 18:30 Naloxone HCl (Narcan Inj) 0.4 mg UNSCH PRN IV PUSH SEE LABEL COMMENTS; Start 12/14/16 at 18:30 Senna/Docusate Sodium (Ramona-Colace) 1 tab BID PO Last administered on 20:40; Start 12/14/16 at 21:00 Magnesium Hydroxide (Milk Of Magnesia Liq) 30 ml Q12H PRN PO Mild constipation ; Start 12/14/16 at 18:30 Sennosides (Senokot) 17.2 mg Q12H PRN PO Moderate constipation; Start at 18:30 Bisacodyl (Dulcolax Supp) 10 mg DAILY PRN RECTAL SEVERE CONSITIPATION; Start 12/14/16 at 18:30 Lactulose (Lactulose Liq) 30 ml DAILY PRN PO SEVERE CONSITIPATION; Start 12/14 at 18:30 Albuterol/ Ipratropium (Duoneb Neb) 1 ampule Q4HR NEB PRN NEB SHORTNESS OF BREATH; Start 12/14/16 at 18:45 Guaifenesin (Mucinex Er) 600 mg BID PO Last administered on 12/16/16 08:01; Start 12/14/16 at 21:00 Clonazepam (KlonoPIN) 1 mg TID PO Last administered on 12/16/16 08:02; Start 12/15/16 at 09:00 Hydroxyzine Pamoate (Vistaril) 100 mg BID PO Last administered on 12/16/16 08 :01; Start 12/14/16 at 21:45 Olanzapine (ZyPREXA) 15 mg DAILY PO Last administered on 12/15/16 08:54; Start 12/15/16 at 09:00; Stop 12/15/16 at 10:39; Status DC Clonidine (Catapres) 0.3 mg TID PO Last administered on 12/16/16 08:04; Start 12/15/16 at 13:00 Dicyclomine HCl (Bentyl) 20 mg TID PRN PO cramping Last administered on 16:55; Start 12/15/16 at 10:45 Olanzapine (ZyPREXA) 15 mg HS PO Last administered on 12/15/16 20:40; Start 12/15/16 at 21:00 Nicotine (Habitrol 14 Mg Patch.24 Hr) 1 patch DAILY T-DERMAL Last administered on 12/16/16 08:04; Start 12/15/16 at 11:00 Miscellaneous Information 1 DAILY T-DERMAL Last administered on 12/16/16 08: 05; Start 12/16/16 at 09:00 Hydrocortisone Acetate (Hemorrhoidal Hc Supp) 25 mg TID RECTAL Last administered on 12/16/16 08:03; Start 12/15/16 at 13:00 Lactobacillus Acidophilus (Lactinex) 1 tab TID PO Last administered on 08:02; Start 12/15/16 at 13:00 Levothyroxine Sodium (Synthroid) 25 mcg DAILY@0600 PO Last administered on 06:20; Start 12/15/16 at 11:00 Doxycycline Hyclate (Vibramycin) 100 mg BID PO Last administered on 12/16/16 08:03; Start 12/15/16 at 11:00 Hydralazine HCl (Apresoline) 50 mg ONCE ONCE PO Last administered on 00:21; Start 12/16/16 at 00:00; Stop 12/16/16 at 00:01; Status DC Hydralazine HCl (Apresoline) 50 mg ONCE ONCE PO Last administered on 03:46; Start 12/16/16 at 03:45; Stop 12/16/16 at 03:46; Status DC Lisinopril (Prinivil) 10 mg Q12HR PO Last administered on 12/16/16 09:15; Start 12/16/16 at 09:00 Vancomycin HCl 1250 mg/Sodium Chloride 262.5 ml @ 250 mls/hr Q12H IV ; Start 12/16/16 at 18:00 Miscellaneous Information SPECIFIC LAB TO BE DRAWN:VANCO TROUGH DATE TO BE DR... ONCE ONCE .XX ; Start 12/18/16 at 05:45; Stop 12/18/16 at 05:46 Urinary Catheter: No Vascular Central Line Catheter: No A/P Problem List: (1) PID (acute pelvic inflammatory disease) ICD Code: N73.0 - Acute parametritis and pelvic cellulitis Status: Acute (2) Abdominal pain ICD Code: R10.9 - Unspecified abdominal pain Status: Acute (3) Polysubstance abuse ICD Code: F19.10 - Other psychoactive substance abuse, uncomplicated Status: Chronic (4) Withdrawal syndrome ICD Code: F19.939 - Other psychoactive substance use, unspecified with withdrawal, unspecified (5) Hypokalemia ICD Code: E87.6 - Hypokalemia Status: Acute (6) Hypothyroidism ICD Code: E03.9 - Hypothyroidism, unspecified Assessment and Plan Ms. Pineda is a 46-year-old female patient with a known medical history of bipolar disorder, COPD, history of CVA, seizures, colitis and IVDU who presented to the ED with fevers and disorientation. Abdominal pain suspect secondary to PID vs tubo-ovarian abscess vs renal lithiasis Meets SIRS criteria (Tachycardia, febrile, tachypnea) - Head CT reviewed showing no acute abnormality. Abdomen/pelvis CT showing adnexal cyst, uterine fibroid and left nonobstructing renal stone measuring 2mm. - Previous abdominal CT reviewed showing right adnexal cyst vs tubo-ovarian abscess with findings of PID. Transvaginal ultrasound showed right adnexal cyst vs abscess. - UA reviewed and unremarkable. Blood cultures drawn and pending, follow. - Lactic acid 1.0. Febrile, 101.2. Ammonia level pending, follow. - Will start on IV Vanco and Zosyn IV. Pharmacy to dose. - CBC reviewed, showing microcytic hypochromic anemia, possibly chronic. Will trend CBC. No sxs of bleeding. - BMP reviewed, hypokalemia noted. Replace. - Control pain, PRN PO and IV medications available. - Tramadol PO given in ED. 1L NS bolus given in ED. Start on IVF, NS at 84 ml /hr. Ensure hydration. - Urine tox screen reviewed, significant for Cannibis. Polysubstance abuse Withdrawal syndrome - Reports recent Morphine use, last use on Thursday. Denies recent IVDU but admits to history of. Does have history of withdrawal seizure. Patient counselled on cessation. - Currently patient appears to be intoxicated or under the influence of chemical/drug, denies any recent substance use. Patient on multiple home medications for anxiety, will hold for now due to altered mental state. Continue to monitor. Will restart once stable and at baseline. Hypokalemia: K 3.1, will replace. Follow BMP in am. Check mag. Homeless: Patient reports staying with her daughter which reportedly is temporary and expresses concern regarding a place to stay when leaving here. Case management consulted for assistance with resources. Tobacco abuse smoking cessation recommended continue on NicoDerm patch Anxiety continue on Zyprexa at bedtime Anemia monitor HEMORRHOIDS ANUSOL SUPPOSITORIES HYPERTENSION- NOT CONTROLLED ADJUST MEDS HYPOTHYROIDISM- START SYNTHROID 25MCG DAILY CHANGE TO PO PAIN MEDS DC TO HOME TOMORROW GERD/GI prophylaxis: Protonix. DVT Prophylaxis: SCDs/TEDs. AM LABS Discharge Planning AM LABS DC TO HOME TOMORROW Shon Roman DO Dec 16, 2016 10:29
[2016-12-16] MEDS: DICYCLOMINE HCL 20 MG TAB PO PRN ×2 (12:23→18:47)
--- NOTE | 2016-12-16 16:14 | MG ---
cc: NEEMA CORRAL DALIA M.D. Lab No: [id number] Date: 12/16/2016 Age: 46 Sex: F Race: DATE OF : 1970, 46 years old. REFERRING PHYSICIAN [facility] ROOM 503. PROCEDURE: Asleep hyperventilation attempted but the patient was too sleepy only photic was able to be completed. CT did not show anything acute. She is a 46-year-old woman with intractable vomiting upper urinary tract infection and fever, disoriented, garbled speech. History of ulcerative colitis, grand mal seizure 2015. MEDICATIONS: Please refer to electronic medical record, On Neurontin, Klonopin and others, as well as antibiotics per discussion of record. PROCEDURE: In an attenuated background predominately of looks to be a slow background 3 Hz. At times there is some faster frequency alpha rhythm superimposed, no epileptiform features. There is some theta frequency as well. Photic stimulation does elicit a mild driving response. No epileptiform features. IMPRESSION Mild moderate slowing consistent with encephalopathic process of various etiology however, there is no epileptiform features to suggest seizure in this one recording. Clinical correlation. MD VAISHNAVI Woods/rosio /3:43 PM /3:55 PM
[2016-12-16] MEDS: VANCOMYCIN INJ 1,250 MG in SODIUM CHLOR 0.9% 250 ML INJ 250 ML IV SCH (18:42)
[2016-12-16] MEDS: ENOXAPARIN SODIUM 40 MG/0.4 ML SYRINGE SQ SCH (21:19)
[2016-12-16] MEDS: LISINOPRIL 20 MG TAB PO SCH (21:27)
[2016-12-17] VITALS: BP 174/95; PULSE 65; RESP 20; TEMP 98.4; O2SAT 94
[2016-12-17 00:22] VITALS: PULSE 63
[2016-12-17] MEDS: ONDANSETRON HCL 4 MG/2 ML VIAL IVP PRN ×2 (00:29→06:02)
[2016-12-17 04:00] VITALS: BP 176/102; PULSE 64; RESP 18; TEMP 98.8; O2SAT 95
[2016-12-17] MEDS: oxyCODONE/ACETAMINOPHEN 10 MG/325 MG TAB PO PRN ×2 (06:02→12:55)
[2016-12-17] MEDS: LEVOTHYROXINE SODIUM 25 MCG TAB PO SCH (06:02)
[2016-12-17] MEDS: PIPERACIL-TAZO 4.5 GM PREMIX 100 ML IV SCH ×2 (06:03→12:07)
[2016-12-17] MEDS: VANCOMYCIN INJ 1,250 MG in SODIUM CHLOR 0.9% 250 ML INJ 250 ML IV SCH (06:07)
[2016-12-17] MEDS ORDERED: Shower Chair (08:14)
[2016-12-17 08:36] VITALS: BP 191/91; PULSE 41; RESP 16; TEMP 97.4; O2SAT 95
[2016-12-17] MEDS: HYDROCORTISONE ACETATE 25 MG SUPP RECTAL SCH ×2 (09:00→12:06)
[2016-12-17] MEDS: SODIUM CHLORIDE 0.9% FLUSH 10 ML FLUSH IV FLUSH SCH (09:00)
[2016-12-17] MEDS: clonazePAM 1 MG TAB PO SCH ×2 (09:08→12:06)
[2016-12-17] MEDS: LISINOPRIL 20 MG TAB PO SCH (09:08)
[2016-12-17] MEDS: LACTOBACILLUS ACIDOPHILUS TAB PO SCH ×2 (09:08→12:07)
[2016-12-17] MEDS: DOCUSATE SODIUM 50 MG/SENNA 8.6 MG TAB PO SCH (09:08)
[2016-12-17] MEDS: GABAPENTIN 400 MG CAP PO SCH (09:08)
[2016-12-17] MEDS: DOXYCYCLINE HYCLATE 100 MG CAP PO SCH (09:08)
[2016-12-17] MEDS: PANTOPRAZOLE SOD 40 MG DELAYED RELEASE TAB PO SCH (09:08)
[2016-12-17] MEDS: guaiFENesin E.R. 600 MG TAB PO SCH (09:08)
[2016-12-17] MEDS: REMOVE OLD PATCH T-DERMAL SCH (09:09)
[2016-12-17] MEDS: NICOTINE 14 MG/24 HR PATCH T-DERMAL SCH (09:09)
[2016-12-17] MEDS: cloNIDine HCL 0.3 MG TAB PO SCH ×2 (09:16→12:07)
[2016-12-17 09:50] LABS: AUTOMATED NEUTROPHIL # 3.9 TH/MM3 (1.8-7.7); BASOPHIL % 0.4 % (0.0-2.0); EOSINOPHIL # 0.1 TH/MM3 (0-0.4); EOSINOPHIL % 1.3 % (0.0-4.0); HEMATOCRIT 28.4 % (35.0-46.0); HEMO FLAGS DIFF FINAL; LYMPHOCYTE # 1.9 TH/MM3 (1.0-4.8); MEAN CELL VOLUME 78.6 FL (80.0-100.0); MEAN CORPUSCULAR HEMOGLOBIN 25.2 PG (27.0-34.0); MEAN CORPUSCULAR HGB CONC 32.1 % (32.0-36.0); MONO % 9.2 % (0.0-8.0); NEUT % 60.1 % (16.0-70.0); PLATELET COUNT 211 TH/MM3 (150-450); RED BLOOD COUNT 3.61 MIL/MM3 (4.00-5.30); RED CELL DISTRIBUTION WIDTH 19.6 % (11.6-17.2); WHITE BLOOD COUNT 6.5 TH/MM3 (4.0-11.0)
[2016-12-17 10:17] LABS: ANION GAP 5 MEQ/L (5-15); AST (GOT) 19 U/L (15-37); BICARBONATE 27.6 MEQ/L (21.0-32.0); BLOOD UREA NITROGEN 6 MG/DL (7-18); CHLORIDE 107 MEQ/L (98-107); GLOMERULAR FILTRATION RATE 85 ML/MIN (>89); MAGNESIUM 1.9 MG/DL (1.5-2.5); POTASSIUM 3.7 MEQ/L (3.5-5.1); SODIUM (NA) 140 MEQ/L (136-145)
[2016-12-17 10:28] LABS: ALKALINE PHOSPHATASE 90 U/L (45-117); ALT (GPT) 17 U/L (10-53); TOTAL BILIRUBIN ADULT 0.3 MG/DL (0.2-1.0)
--- NOTE | 2016-12-17 11:22 | HHI.PR ---
Subjective Remarks Ms. Pineda is a 46-year-old female patient with a known medical history of bipolar disorder, COPD, history of CVA, seizures, colitis and IVDU who presented to the ED with fevers and disorientation. Patient seen and examined in room, lying in bed. Awake and oriented, speech is garbled. States that she has been having continued pain in her pelvis and lower back. She also is complaining of intermittent nausea and vomiting since last admission. Patient does state that she last used Morphine PO on Thursday, denies any recent IVDU. Admits to recent fevers, chills, abdominal pain, headaches and dysuria. Denies any shortness of breath, chest pain. Recently hospitalized for intractable nausea and vomiting with diagnosis of PID, discharged on Doxycycline with recommendations of a repeat ultrasound in 6 weeks. With which the patient was noncompliant and did not finish course of antibiotic. I FEEL PATIENT ONLY BOUGHT HER PAIN MEDICATIONS AND DID NOT GET HER ANTIBIOTIC UNLESS IT WAS GIVEN TO HER FOR FREE 12-15 patient wants her Zyprexa switched to at bedtime Patient wants medication for her hemorrhoids Patient wants a NicoDerm patch Patient needs Lactinex Patient is homeless Discussed with patient and RN Continue physical therapy and occupational therapy Home medications have been adjusted A.m. labs Watch fevers labs 12-16 PATIENT IS ACTIVELY DRUG SEEKING WANTS PAIN MEDS AND ANXIETY MEDS ADJUST BP MEDS DW RN AND PT AND FAMILY DC IV PAIN MEDS 12-17 CLEARED FOR DC PATIENT FOUND WITH BAG OF PILLS IN ROOM UNLABELED TO HER AND [place]CO BOTTLE- LAST NIGHT DC TO HOME DRUG SEEKING BEHAVIOR IN HER AND HER - Objective Vitals Vital Signs Date Time Temp Pulse Resp B/P (MAP) Pulse Ox O2 Delivery O2 Flow Rate FiO2 12/17/16 08:36 97.4 41 16 191/91 (124) 95 12/17/16 04:00 98.8 64 18 176/102 (126) 95 12/17/16 00:22 63 12/17/16 00:00 98.4 65 20 174/95 (121) 94 12/16/16 20:00 98.9 42 18 172/82 (112) 97 12/16/16 18:15 96 21 12/16/16 16:45 97.3 57 18 188/95 (126) 96 12/16/16 12:33 97.3 72 16 155/83 (107) 94 I/O 12/16/16 12/16/16 12/16/16 12/17/16 12/17/16 12/17/16 07:00 15:00 23:00 07:00 15:00 23:00 Intake Total 720 ml 250 ml Balance 720 ml 250 ml Intake Oral 620 ml IV Total 100 ml 250 ml # Voids 2 3 Result Diagram: 12/17/16 0710 12/17/16 0710 Other Results Laboratory Tests Test 12/14/16 14:30 12/14/16 15:05 12/14/16 21:15 12/15/16 08:20 White Blood Count 6.1 TH/MM3 5.0 TH/MM3 Red Blood Count 3.99 MIL/MM3 3.55 MIL/MM3 Hemoglobin 10.0 GM/DL 9.0 GM/DL Hematocrit 30.9 % 27.6 % Mean Corpuscular Volume 77.5 FL 77.9 FL Mean Corpuscular Hemoglobin 25.2 PG 25.2 PG Mean Corpuscular Hemoglobin Concent 32.5 % 32.4 % Red Cell Distribution Width 19.0 % 19.4 % Platelet Count 184 TH/MM3 166 TH/MM3 Mean Platelet Volume 8.8 FL 9.1 FL Neutrophils (%) (Auto) 77.7 % 54.4 % Lymphocytes (%) (Auto) 11.3 % 26.9 % Monocytes (%) (Auto) 10.1 % 14.9 % Eosinophils (%) (Auto) 0.5 % 2.9 % Basophils (%) (Auto) 0.4 % 0.9 % Neutrophils # (Auto) 4.8 TH/MM3 2.7 TH/MM3 Lymphocytes # (Auto) 0.7 TH/MM3 1.3 TH/MM3 Monocytes # (Auto) 0.6 TH/MM3 0.7 TH/MM3 Eosinophils # (Auto) 0.0 TH/MM3 0.1 TH/MM3 Basophils # (Auto) 0.0 TH/MM3 0.0 TH/MM3 CBC Comment DIFF FINAL DIFF FINAL Differential Comment Blood Urea Nitrogen 6 MG/DL 5 MG/DL Creatinine 0.74 MG/DL 0.64 MG/DL Random Glucose 103 MG/DL 83 MG/DL Total Protein 6.6 GM/DL 5.8 GM/DL Albumin 3.0 GM/DL 2.7 GM/DL Calcium Level 8.1 MG/DL 8.3 MG/DL Alkaline Phosphatase 104 U/L 81 U/L Aspartate Amino Transf (AST/SGOT) 17 U/L 18 U/L Alanine Aminotransferase (ALT/SGPT) 16 U/L 15 U/L Total Bilirubin 0.5 MG/DL 0.4 MG/DL Sodium Level 140 MEQ/L 141 MEQ/L Potassium Level 3.1 MEQ/L 3.8 MEQ/L Chloride Level 106 MEQ/L 109 MEQ/L Carbon Dioxide Level 27.7 MEQ/L 25.9 MEQ/L Anion Gap 6 MEQ/L 6 MEQ/L Estimat Glomerular Filtration Rate 85 ML/MIN 101 ML/MIN Lactic Acid Level 1.0 mmol/L Magnesium Level 1.6 MG/DL 1.9 MG/DL Ethyl Alcohol Level LESS THAN 3 MG/DL Urine Color LIGHT-YELLOW Urine Turbidity CLEAR Urine pH 7.0 Urine Specific [place] 1.010 Urine Protein NEG mg/dL Urine Glucose (UA) NEG mg/dL Urine Ketones NEG mg/dL Urine Occult Blood NEG Urine Nitrite NEG Urine Bilirubin NEG Urine Urobilinogen LESS THAN 2.0 MG/DL Urine Leukocyte Esterase NEG Urine RBC LESS THAN 1 /hpf Urine Squamous Epithelial Cells 2 /hpf Microscopic Urinalysis Comment CATH-CULT NOT IND Urine Opiates Screen NEG Urine Barbiturates Screen NEG Urine Amphetamines Screen NEG Urine Benzodiazepines Screen NEG Urine Cocaine Screen NEG Urine Cannabinoids Screen POS Ammonia 29 MCMOL/L 36 MCMOL/L Phosphorus Level 2.6 MG/DL Hemoglobin A1c 6.1 % Free Thyroxine 0.81 NG/DL Thyroid Stimulating Hormone 3rd Gen 4.250 uIU/ML Test 12/16/16 06:04 12/16/16 07:19 12/17/16 07:10 Creatinine 0.66 MG/DL 0.67 MG/DL 0.74 MG/DL Estimat Glomerular Filtration Rate 97 ML/MIN 96 ML/MIN 85 ML/MIN Vancomycin Level Trough 10.6 MCG/ML White Blood Count 5.3 TH/MM3 6.5 TH/MM3 Red Blood Count 3.90 MIL/MM3 3.61 MIL/MM3 Hemoglobin 9.7 GM/DL 9.1 GM/DL Hematocrit 30.5 % 28.4 % Mean Corpuscular Volume 78.1 FL 78.6 FL Mean Corpuscular Hemoglobin 24.9 PG 25.2 PG Mean Corpuscular Hemoglobin Concent 31.9 % 32.1 % Red Cell Distribution Width 19.7 % 19.6 % Platelet Count 176 TH/MM3 211 TH/MM3 Mean Platelet Volume 9.7 FL 9.9 FL Neutrophils (%) (Auto) 55.5 % 60.1 % Lymphocytes (%) (Auto) 29.4 % 29.0 % Monocytes (%) (Auto) 11.3 % 9.2 % Eosinophils (%) (Auto) 2.9 % 1.3 % Basophils (%) (Auto) 0.9 % 0.4 % Neutrophils # (Auto) 2.9 TH/MM3 3.9 TH/MM3 Lymphocytes # (Auto) 1.5 TH/MM3 1.9 TH/MM3 Monocytes # (Auto) 0.6 TH/MM3 0.6 TH/MM3 Eosinophils # (Auto) 0.2 TH/MM3 0.1 TH/MM3 Basophils # (Auto) 0.0 TH/MM3 0.0 TH/MM3 CBC Comment DIFF FINAL DIFF FINAL Differential Comment Blood Urea Nitrogen 4 MG/DL 6 MG/DL Random Glucose 99 MG/DL 109 MG/DL Total Protein 6.7 GM/DL 6.4 GM/DL Albumin 2.9 GM/DL 2.8 GM/DL Calcium Level 8.3 MG/DL 8.7 MG/DL Phosphorus Level 2.6 MG/DL 2.5 MG/DL Magnesium Level 2.2 MG/DL 1.9 MG/DL Alkaline Phosphatase 114 U/L 90 U/L Aspartate Amino Transf (AST/SGOT) 23 U/L 19 U/L Alanine Aminotransferase (ALT/SGPT) 22 U/L 17 U/L Total Bilirubin 0.5 MG/DL 0.3 MG/DL Sodium Level 139 MEQ/L 140 MEQ/L Potassium Level 4.1 MEQ/L 3.7 MEQ/L Chloride Level 108 MEQ/L 107 MEQ/L Carbon Dioxide Level 25.1 MEQ/L 27.6 MEQ/L Anion Gap 6 MEQ/L 5 MEQ/L Imaging Last Impressions Head CT 12/14/161606 Signed Impressions: Service Date/Time: Wednesday, December 14, 2016 16:23 - CONCLUSION: 1. Motion degraded exam. 2. No acute abnormality. Buzz Pena Jr., MD Abdomen/Pelvis CT 12/14/161606 Signed Impressions: Service Date/Time: Wednesday, December 14, 2016 16:26 - CONCLUSION: 1. Right adnexal cyst is slightly smaller from prior exam. It measures 4.3 cm. 2. 3.4 cm mass along the uterus likely related to a fibroid. 3. Free fluid in the endometrial canal. 4. 2 mm nonobstructing left renal stone. 5. Top normal heart size. 6. Bibasilar atelectasis. Buzz Pena Jr., MD Objective Remarks GENERAL: Awake alert talkative and cooperative now. Patient is requesting pain medication still SKIN: Warm and dry. HEAD: Atraumatic. Normocephalic. EYES: Pupils equal and round. No scleral icterus. No injection or drainage. Extraocular muscles intact ENT: No nasal bleeding or discharge. Mucous membranes pink and moist. Tongue is midline NECK: Trachea midline. No JVD. Neck is supple CARDIOVASCULAR: Regular rate and rhythm. S1 and S2 no S3 or S4 no heave or thrill or rub or gallop RESPIRATORY: No accessory muscle use. Coarse breath sounds bilaterally. Breath sounds equal bilaterally. GASTROINTESTINAL: Abdomen soft, non-tender, nondistended. Hepatic and splenic margins not palpable. MUSCULOSKELETAL: Extremities without clubbing, cyanosis, or edema. No obvious deformities. NEUROLOGICAL: Awake and alert. No obvious cranial nerve deficits. Motor grossly within normal limits. 4 out of 5 muscle strength in the arms and legs. Normal speech. PSYCHIATRIC: INAppropriate mood and affect; insight and judgment ABnormal. Procedures EEG Mild moderate slowing consistent with encephalopathic process of various etiology however, there is no epileptiform features to suggest seizure in this one recording. Clinical correlation. Medications and IVs Current Medications Sodium Chloride 1,000 ml @ 1,000 mls/hr Q1H ONCE IV Last administered on 12/14 14:45; Start 12/14/16 at 13:58; Stop 12/14/16 at 14:57; Status DC Acetaminophen (Tylenol) 325 mg ONCE ONCE PO Last administered on 12/14/16 14 :08; Start 12/14/16 at 14:15; Stop 12/14/16 at 14:16; Status DC Iohexol (Omnipaque 350 Inj) 97 ml STK-MED ONCE IVCONTRAST Last administered on 12/14/16 16:23; Start 12/14/16 at 16:23; Stop 12/14/16 at 16:30; Status DC Tramadol HCl (Ultram) 50 mg ONCE ONCE PO Last administered on 12/14/16 17:04 ; Start 12/14/16 at 17:00; Stop 12/14/16 at 17:01; Status DC Vancomycin HCl 1000 mg/Sodium Chloride 250 ml @ 250 mls/hr ONCE ONCE IV Last administered on 12/14/16 20:31; Start 12/14/16 at 18:15; Stop 12/14/16 at 19 :14; Status DC Pharmacy Profile Note 0 ml @ 0 mls/hr UNSCH OTHER ; Start 12/14/16 at 18:15 Piperacillin Sod/ Tazobactam Sod 100 ml @ 200 mls/hr ONCE ONCE IV Last administered on 12/14/16 18:55; Start 12/14/16 at 18:15; Stop 12/14/16 at 18 :44; Status DC Piperacillin Sod/ Tazobactam Sod 100 ml @ 200 mls/hr Q6H IV Last administered on 12/17/16 06:03; Start 12/15/16 at 00:00 Potassium Chloride (KCl) 40 meq ONCE ONCE PO Last administered on 12/14/16 20:30; Start 12/14/16 at 18:30; Stop 12/14/16 at 18:31; Status DC Potassium Chloride 100 ml @ 50 mls/hr BOLUS ONCE IV Last administered on 00:46; Start 12/14/16 at 18:30; Stop 12/14/16 at 20:29; Status DC Sodium Chloride 1,000 ml @ 84 mls/hr [id number] IV Last administered on 21:34; Start 12/14/16 at 18:30 Gabapentin (Neurontin) 1,200 mg BID PO Last administered on 12/17/16 09:08; Start 12/14/16 at 21:00 Pantoprazole Sodium (Protonix) 40 mg DAILY PO Last administered on 12/17/16 09:08; Start 12/15/16 at 09:00 Vancomycin HCl 1000 mg/Sodium Chloride 250 ml @ 250 mls/hr Q12H IV Last administered on 12/16/16 06:20; Start 12/15/16 at 06:00; Stop 12/16/16 at 09 :48; Status DC Miscellaneous Information SPECIFIC LAB TO BE ... ONCE ONCE .XX Last administered on 12/16/16 05:45; Start 12/16/16 at 05:45; Stop 12/16/16 at 05 :46; Status DC Sodium Chloride 1,000 ml @ 100 mls/hr Q10H IV Last administered on 12/14/16 20:31; Start 12/14/16 at 18:29; Stop 12/15/16 at 11:41; Status DC Sodium Chloride (NS Flush) 2 ml UNSCH PRN IV FLUSH FLUSH AFTER USING IV ACCESS ; Start 12/14/16 at 18:30 Sodium Chloride (NS Flush) 2 ml BID IV FLUSH Last administered on 12/15/16 20 :40; Start 12/14/16 at 21:00 Acetaminophen (Tylenol) 650 mg Q4H PRN PO TEMP > 100.4; Start 12/14/16 at 18: 30 Ondansetron HCl (Zofran Inj) 4 mg Q6H PRN IVP NAUSEA OR VOMITING Last administered on 12/17/16 06:02; Start 12/14/16 at 18:30 Prochlorperazine (Compazine Supp) 25 mg Q12H PRN RECTAL NAUSEA OR VOMITING; Start 12/14/16 at 18:30 Enoxaparin Sodium (Lovenox Inj) 40 mg Q24H SQ Last administered on 12/16/16 21:19; Start 12/14/16 at 20:00 Acetaminophen (Tylenol) 650 mg Q6H PRN PO PAIN SCALE 1 TO 2; Start 12/14/16 at 18:30 Oxycodone/ Acetaminophen (Percocet 5-325 Mg) 1 tab Q6H PRN PO PAIN SCALE 3 TO 5 Last administered on 12/16/16 12:19; Start 12/14/16 at 18:30 Oxycodone/ Acetaminophen (Percocet 10-325 Mg) 1 tab Q6H PRN PO PAIN SCALE 6 TO 10 Last administered on 12/17/16 06:02; Start 12/14/16 at 18:30 Morphine Sulfate (Morphine Inj) 2 mg Q3H PRN IV PUSH Pain 3-5; if unable to take PO; Start 12/14/16 at 18:30; Stop 12/16/16 at 10:31; Status DC Morphine Sulfate (Morphine Inj) 4 mg Q3H PRN IV PUSH Pain 6-10;if unable to take PO Last administered on 12/16/16 08:05; Start 12/14/16 at 18:30; Stop 12/16/16 at 10:31; Status DC Naloxone HCl (Narcan Inj) 0.4 mg UNSCH PRN IV PUSH SEE LABEL COMMENTS; Start 12/14/16 at 18:30 Senna/Docusate Sodium (Ramona-Colace) 1 tab BID PO Last administered on 09:08; Start 12/14/16 at 21:00 Magnesium Hydroxide (Milk Of Magnesia Liq) 30 ml Q12H PRN PO Mild constipation ; Start 12/14/16 at 18:30 Sennosides (Senokot) 17.2 mg Q12H PRN PO Moderate constipation; Start at 18:30 Bisacodyl (Dulcolax Supp) 10 mg DAILY PRN RECTAL SEVERE CONSITIPATION; Start 12/14/16 at 18:30 Lactulose (Lactulose Liq) 30 ml DAILY PRN PO SEVERE CONSITIPATION; Start 12/14 at 18:30 Albuterol/ Ipratropium (Duoneb Neb) 1 ampule Q4HR NEB PRN NEB SHORTNESS OF BREATH; Start 12/14/16 at 18:45 Guaifenesin (Mucinex Er) 600 mg BID PO Last administered on 12/17/16 09:08; Start 12/14/16 at 21:00 Clonazepam (KlonoPIN) 1 mg TID PO Last administered on 12/17/16 09:08; Start 12/15/16 at 09:00 Hydroxyzine Pamoate (Vistaril) 100 mg BID PO Last administered on 12/17/16 09 :08; Start 12/14/16 at 21:45 Olanzapine (ZyPREXA) 15 mg DAILY PO Last administered on 12/15/16 08:54; Start 12/15/16 at 09:00; Stop 12/15/16 at 10:39; Status DC Clonidine (Catapres) 0.3 mg TID PO Last administered on 12/17/16 09:16; Start 12/15/16 at 13:00 Dicyclomine HCl (Bentyl) 20 mg TID PRN PO cramping Last administered on 18:47; Start 12/15/16 at 10:45 Olanzapine (ZyPREXA) 15 mg HS PO Last administered on 12/16/16 21:16; Start 12/15/16 at 21:00 Nicotine (Habitrol 14 Mg Patch.24 Hr) 1 patch DAILY T-DERMAL Last administered on 12/17/16 09:09; Start 12/15/16 at 11:00 Miscellaneous Information 1 DAILY T-DERMAL Last administered on 12/17/16 09: 09; Start 12/16/16 at 09:00 Hydrocortisone Acetate (Hemorrhoidal Hc Supp) 25 mg TID RECTAL Last administered on 12/17/16 09:00; Start 12/15/16 at 13:00 Lactobacillus Acidophilus (Lactinex) 1 tab TID PO Last administered on 09:08; Start 12/15/16 at 13:00 Levothyroxine Sodium (Synthroid) 25 mcg DAILY@0600 PO Last administered on 06:02; Start 12/15/16 at 11:00 Doxycycline Hyclate (Vibramycin) 100 mg BID PO Last administered on 12/17/16 09:08; Start 12/15/16 at 11:00 Hydralazine HCl (Apresoline) 50 mg ONCE ONCE PO Last administered on 00:21; Start 12/16/16 at 00:00; Stop 12/16/16 at 00:01; Status DC Hydralazine HCl (Apresoline) 50 mg ONCE ONCE PO Last administered on 03:46; Start 12/16/16 at 03:45; Stop 12/16/16 at 03:46; Status DC Lisinopril (Prinivil) 10 mg Q12HR PO Last administered on 12/16/16 09:15; Start 12/16/16 at 09:00; Stop 12/16/16 at 10:31; Status DC Vancomycin HCl 1250 mg/Sodium Chloride 262.5 ml @ 250 mls/hr Q12H IV Last administered on 12/17/16 06:07; Start 12/16/16 at 18:00 Miscellaneous Information SPECIFIC LAB TO BE DRAWN:VANCO TROUGH DATE TO BE DRPrince.. ONCE ONCE .XX ; Start 12/18/16 at 05:45; Stop 12/18/16 at 05:46 Lisinopril (Prinivil) 20 mg Q12HR PO Last administered on 12/17/16t 09:08; Start 12/16/16 at 21:00 A/P Problem List: (1) PID (acute pelvic inflammatory disease) ICD Code: N73.0 - Acute parametritis and pelvic cellulitis Status: Acute (2) Abdominal pain ICD Code: R10.9 - Unspecified abdominal pain Status: Acute (3) Polysubstance abuse ICD Code: F19.10 - Other psychoactive substance abuse, uncomplicated Status: Chronic (4) Withdrawal syndrome ICD Code: F19.939 - Other psychoactive substance use, unspecified with withdrawal, unspecified (5) Hypokalemia ICD Code: E87.6 - Hypokalemia Status: Acute (6) Hypothyroidism ICD Code: E03.9 - Hypothyroidism, unspecified Assessment and Plan Ms. Pineda is a 46-year-old female patient with a known medical history of bipolar disorder, COPD, history of CVA, seizures, colitis and IVDU who presented to the ED with fevers and disorientation. Abdominal pain suspect secondary to PID vs tubo-ovarian abscess vs renal lithiasis Meets SIRS criteria (Tachycardia, febrile, tachypnea) - Head CT reviewed showing no acute abnormality. Abdomen/pelvis CT showing adnexal cyst, uterine fibroid and left nonobstructing renal stone measuring 2mm. - Previous abdominal CT reviewed showing right adnexal cyst vs tubo-ovarian abscess with findings of PID. Transvaginal ultrasound showed right adnexal cyst vs abscess. - UA reviewed and unremarkable. Blood cultures drawn and pending, follow. - Lactic acid 1.0. Febrile, 101.2. Ammonia level pending, follow. - Will start on IV Vanco and Zosyn IV. Pharmacy to dose. - CBC reviewed, showing microcytic hypochromic anemia, possibly chronic. Will trend CBC. No sxs of bleeding. - BMP reviewed, hypokalemia noted. Replace. - Control pain, PRN PO and IV medications available. - Tramadol PO given in ED. 1L NS bolus given in ED. Start on IVF, NS at 84 ml /hr. Ensure hydration. - Urine tox screen reviewed, significant for Cannibis. Polysubstance abuse Withdrawal syndrome - Reports recent Morphine use, last use on Thursday. Denies recent IVDU but admits to history of. Does have history of withdrawal seizure. Patient counselled on cessation. - Currently patient appears to be intoxicated or under the influence of chemical/drug, denies any recent substance use. Patient on multiple home medications for anxiety, will hold for now due to altered mental state. Continue to monitor. Will restart once stable and at baseline. Hypokalemia: K 3.1, will replace. Follow BMP in am. Check mag. Homeless: Patient reports staying with her daughter which reportedly is temporary and expresses concern regarding a place to stay when leaving here. Case management consulted for assistance with resources. Tobacco abuse smoking cessation recommended continue on NicoDerm patch Anxiety continue on Zyprexa at bedtime Anemia monitor DRUG SEEKING BEHAVIOR IN PATIENT AND HEMORRHOIDS ANUSOL SUPPOSITORIES HYPERTENSION- NOT CONTROLLED ADJUST MEDS HYPOTHYROIDISM- START SYNTHROID 25MCG DAILY CHANGE TO PO PAIN MEDS DC TO HOME TODAY EEG WAS STABLE GERD/GI prophylaxis: Protonix. DVT Prophylaxis: SCDs/TEDs. AM LABS Discharge Planning DC TO HOME Shon Roman DO Dec 17, 2016 11:21
[2016-12-17] MEDS ORDERED: guaiFENesin ER PO (11:33)
[2016-12-17] MEDS ORDERED: ULTR50TA5 PO (11:33)
[2016-12-17] MEDS ORDERED: CLON1 PO (11:33)
[2016-12-17] MEDS ORDERED: LACT PO (11:33)
[2016-12-17] MEDS ORDERED: PANT40TA3 PO (11:33)
[2016-12-17] MEDS ORDERED: HYDR-3799 PO (11:33)
[2016-12-17] MEDS ORDERED: NEUR400C PO (11:33)
[2016-12-17] MEDS ORDERED: DICY20TA10 PO (11:33)
[2016-12-17] MEDS ORDERED: DOXY100C PO (11:33)
[2016-12-17] MEDS ORDERED: LEVO25TA4 PO (11:33)
[2016-12-17] MEDS ORDERED: LISI-515 PO (11:33)
[2016-12-17] MEDS ORDERED: ANUS25SU RECTAL (11:33)
[2016-12-17] MEDS ORDERED: LEVA500T20 PO (11:33)
[2016-12-17] MEDS ORDERED: VIST50CA PO (11:33)
[2016-12-17] MEDS ORDERED: NICO14DI23 T-DERMAL (11:33)
[2016-12-17] MEDS ORDERED: OLAN15TA PO (11:33)
--- NOTE | 2016-12-17 11:40 | HHI.DS ---
Discharge Summary Admission Date Dec 14, 2016 at 17:46 Discharge Date: Dec 17, 2016 Admitting Diagnosis ABDOMINAL PAIN , BACK PAIN (1) PID (acute pelvic inflammatory disease) ICD Code: N73.0 - Acute parametritis and pelvic cellulitis Diagnosis: Principal Status: Acute (2) Abdominal pain ICD Code: R10.9 - Unspecified abdominal pain Diagnosis: Secondary Status: Acute (3) Polysubstance abuse ICD Code: F19.10 - Other psychoactive substance abuse, uncomplicated Diagnosis: Principal Status: Chronic (4) Withdrawal syndrome ICD Code: F19.939 - Other psychoactive substance use, unspecified with withdrawal, unspecified Diagnosis: Principal (5) Hypokalemia ICD Code: E87.6 - Hypokalemia Diagnosis: Secondary Status: Acute (6) Hypothyroidism ICD Code: E03.9 - Hypothyroidism, unspecified Diagnosis: Principal Procedures EEG Mild moderate slowing consistent with encephalopathic process of various etiology however, there is no epileptiform features to suggest seizure in this one recording. Clinical correlation. Brief History - From Admission Ms. Pineda is a 46-year-old female patient with a known medical history of bipolar disorder, COPD, history of CVA, seizures, colitis and IVDU who presented to the ED with fevers and disorientation. Patient seen and examined in room, lying in bed. Awake and oriented, speech is garbled. States that she has been having continued pain in her pelvis and lower back. She also is complaining of intermittent nausea and vomiting since last admission. Patient does state that she last used Morphine PO on Thursday, denies any recent IVDU. Admits to recent fevers, chills, abdominal pain, headaches and dysuria. Denies any shortness of breath, chest pain. Recently hospitalized for intractable nausea and vomiting with diagnosis of PID, discharged on Doxycycline with recommendations of a repeat ultrasound in 6 weeks. With which the patient was noncompliant and did not finish course of antibiotic. I FEEL PATIENT ONLY BOUGHT HER PAIN MEDICATIONS AND DID NOT GET HER ANTIBIOTIC UNLESS IT WAS GIVEN TO HER FOR FREE CBC/BMP: 12/17/16 0710 12/17/16 0710 Significant Findings Laboratory Tests Test 12/14/16 14:30 12/14/16 15:05 12/14/16 21:15 12/15/16 08:20 Red Blood Count 3.99 MIL/MM3 (4.00-5.30) 3.55 MIL/MM3 (4.00-5.30) Hemoglobin 10.0 GM/DL (11.6-15.3) 9.0 GM/DL (11.6-15.3) Hematocrit 30.9 % (35.0-46.0) 27.6 % (35.0-46.0) Mean Corpuscular Volume 77.5 FL (80.0-100.0) 77.9 FL (80.0-100.0) Mean Corpuscular Hemoglobin 25.2 PG (27.0-34.0) 25.2 PG (27.0-34.0) Red Cell Distribution Width 19.0 % (11.6-17.2) 19.4 % (11.6-17.2) Neutrophils (%) (Auto) 77.7 % (16.0-70.0) Monocytes (%) (Auto) 10.1 % (0.0-8.0) 14.9 % (0.0-8.0) Lymphocytes # (Auto) 0.7 TH/MM3 (1.0-4.8) Blood Urea Nitrogen 6 MG/DL (7-18) 5 MG/DL (7-18) Albumin 3.0 GM/DL (3.4-5.0) 2.7 GM/DL (3.4-5.0) Calcium Level 8.1 MG/DL (8.5-10.1) 8.3 MG/DL (8.5-10.1) Potassium Level 3.1 MEQ/L (3.5-5.1) Estimat Glomerular Filtration Rate 85 ML/MIN (>89) Urine Cannabinoids Screen POS (NEG) Total Protein 5.8 GM/DL (6.4-8.2) Chloride Level 109 MEQ/L (98-107) Hemoglobin A1c 6.1 % (4.3-6.0) Ammonia 36 MCMOL/L (11-32) Thyroid Stimulating Hormone 3rd Gen 4.250 uIU/ML (0.358-3.740) Test 12/16/16 06:04 12/16/16 07:19 12/17/16 07:10 Vancomycin Level Trough 10.6 MCG/ML (5.0-10.0) Red Blood Count 3.90 MIL/MM3 (4.00-5.30) 3.61 MIL/MM3 (4.00-5.30) Hemoglobin 9.7 GM/DL (11.6-15.3) 9.1 GM/DL (11.6-15.3) Hematocrit 30.5 % (35.0-46.0) 28.4 % (35.0-46.0) Mean Corpuscular Volume 78.1 FL (80.0-100.0) 78.6 FL (80.0-100.0) Mean Corpuscular Hemoglobin 24.9 PG (27.0-34.0) 25.2 PG (27.0-34.0) Mean Corpuscular Hemoglobin Concent 31.9 % (32.0-36.0) Red Cell Distribution Width 19.7 % (11.6-17.2) 19.6 % (11.6-17.2) Monocytes (%) (Auto) 11.3 % (0.0-8.0) 9.2 % (0.0-8.0) Blood Urea Nitrogen 4 MG/DL (7-18) 6 MG/DL (7-18) Albumin 2.9 GM/DL (3.4-5.0) 2.8 GM/DL (3.4-5.0) Calcium Level 8.3 MG/DL (8.5-10.1) Chloride Level 108 MEQ/L (98-107) Random Glucose 109 MG/DL (74-106) Estimat Glomerular Filtration Rate 85 ML/MIN (>89) Imaging Last Impressions Head CT 12/14/161606 Signed Impressions: Service Date/Time: Wednesday, December 14, 2016 16:23 - CONCLUSION: 1. Motion degraded exam. 2. No acute abnormality. Buzz Pena Jr., MD Abdomen/Pelvis CT 12/14/161606 Signed Impressions: Service Date/Time: Wednesday, December 14, 2016 16:26 - CONCLUSION: 1. Right adnexal cyst is slightly smaller from prior exam. It measures 4.3 cm. 2. 3.4 cm mass along the uterus likely related to a fibroid. 3. Free fluid in the endometrial canal. 4. 2 mm nonobstructing left renal stone. 5. Top normal heart size. 6. Bibasilar atelectasis. Buzz Pena Jr., MD PE at Discharge GENERAL: Awake alert talkative and cooperative now. Patient is requesting pain medication still SKIN: Warm and dry. HEAD: Atraumatic. Normocephalic. EYES: Pupils equal and round. No scleral icterus. No injection or drainage. Extraocular muscles intact ENT: No nasal bleeding or discharge. Mucous membranes pink and moist. Tongue is midline NECK: Trachea midline. No JVD. Neck is supple CARDIOVASCULAR: Regular rate and rhythm. S1 and S2 no S3 or S4 no heave or thrill or rub or gallop RESPIRATORY: No accessory muscle use. Coarse breath sounds bilaterally. Breath sounds equal bilaterally. GASTROINTESTINAL: Abdomen soft, non-tender, nondistended. Hepatic and splenic margins not palpable. MUSCULOSKELETAL: Extremities without clubbing, cyanosis, or edema. No obvious deformities. NEUROLOGICAL: Awake and alert. No obvious cranial nerve deficits. Motor grossly within normal limits. 4 out of 5 muscle strength in the arms and legs. Normal speech. PSYCHIATRIC: INAppropriate mood and affect; insight and judgment ABnormal. Hospital Course Ms. Pineda is a 46-year-old female patient with a known medical history of bipolar disorder, COPD, history of CVA, seizures, colitis and IVDU who presented to the ED with fevers and disorientation. Patient seen and examined in room, lying in bed. Awake and oriented, speech is garbled. States that she has been having continued pain in her pelvis and lower back. She also is complaining of intermittent nausea and vomiting since last admission. Patient does state that she last used Morphine PO on Thursday, denies any recent IVDU. Admits to recent fevers, chills, abdominal pain, headaches and dysuria. Denies any shortness of breath, chest pain. Recently hospitalized for intractable nausea and vomiting with diagnosis of PID, discharged on Doxycycline with recommendations of a repeat ultrasound in 6 weeks. With which the patient was noncompliant and did not finish course of antibiotic. I FEEL PATIENT ONLY BOUGHT HER PAIN MEDICATIONS AND DID NOT GET HER ANTIBIOTIC UNLESS IT WAS GIVEN TO HER FOR FREE 12-15 patient wants her Zyprexa switched to at bedtime Patient wants medication for her hemorrhoids Patient wants a NicoDerm patch Patient needs Lactinex Patient is homeless Discussed with patient and RN Continue physical therapy and occupational therapy Home medications have been adjusted A.m. labs Watch fevers labs -24 PATIENT IS ACTIVELY DRUG SEEKING WANTS PAIN MEDS AND ANXIETY MEDS ADJUST BP MEDS DW RN AND PT AND FAMILY DC IV PAIN MEDS 10- CLEARED FOR DC PATIENT FOUND WITH BAG OF PILLS IN ROOM UNLABELED TO HER AND NORCO BOTTLE- LAST NIGHT DC TO HOME DRUG SEEKING BEHAVIOR IN HER AND HER - Pt Condition on Discharge: Fair Discharge Disposition: Discharge Home Discharge Time: > 30 minutes Discharge Instructions DIET: Follow Instructions for: As Tolerated, No Restrictions, Heart Healthy Diet Speech Therapy-Diet Recommends: Regular Activities you can perform: Regular-No Restrictions Other Activity Instructions: NO ILLICIT DRUGS ONLY TAKE RX THAT ARE PRESCRIBED FOR YOU Follow up Referrals: CHARGE MANAGER - 1 Week PCP Follow-up - 1 Week New Medications: Hydralazine HCl (Hydralazine HCl) 25 Mg Tablet 50 MG PO TID for Blood Pressure Management, #180 TAB 0 Refills Levofloxacin (Levaquin) 500 Mg Tablet 500 MG PO DAILY for Infection for 10 Days, #10 TAB 0 Refills Tramadol (Ultram) 50 Mg Tab 50 MG PO Q8H PRN for PAIN, #30 TAB 0 Refills [Shower Chair] () #1 Clonazepam (Klonopin) 1 Mg Tab 1 MG PO TID for Anxiety and/or Insomnia, #30 TAB Gabapentin (Neurontin) 400 Mg Cap 1200 MG PO BID for Pain Management, #180 CAP Hydrocortisone Supp (Anusol-Hc Supp) 25 Mg Supp 25 MG RECTAL TID for Hemorrhoids, #90 SUPP Lactobacillus Acidophilus (Acidophilus/l-Sporogenes) 35 Million Cell-25 Million Cell Tab 1 TAB PO TID for Nutritional Supplement, #90 TAB Levothyroxine (Levothyroxine) 25 Mcg Tab 25 MCG PO DAILY@0600 for Thyroid, #30 TAB Lisinopril (Lisinopril) 20 Mg Tab 20 MG PO Q12HR for Blood Pressure Management, #60 TAB Nicotine (Eq Nicotine) 14 Mg/24 Hour Dis 1 PATCH T-DERMAL DAILY for TOBACCO, #30 PATCH Olanzapine (Olanzapine) 15 Mg Tab 15 MG PO HS for Agitation, #30 TAB [guaiFENesin ER] () 600 MG TABCR 600 MG PO BID for Cough, #60 Continued Medications: Dicyclomine (Dicyclomine) 20 Mg Tab 20 MG PO TID PRN for cramping for 30 Days, #90 TAB (This prescription has been renewed) Doxycycline Hyclate (Doxycycline Hyclate) 100 Mg Cap 100 MG PO BID for Infection for 14 Days, #28 CAP (This prescription has been renewed) Hydrocodone-Acetaminophen ([place]) 5-325 mg Tab 1 TAB PO Q4H PRN for PAIN, #10 TAB 0 Refills Hydroxyzine Pamoate (Vistaril) 50 Mg Cap 100 MG PO BID for Anxiety and/or Insomnia, #120 CAP 0 Refills (This prescription has been renewed) Pantoprazole (Pantoprazole) 40 Mg Tab 40 MG PO DAILY for Reflux for 30 Days, #30 TAB (This prescription has been renewed) Discontinued Medications: Clonazepam (Klonopin) 2 Mg Tab 1 MG PO TID, #60 TAB 0 Refills Clonidine (Clonidine) 0.3 Mg Tab 0.3 MG PO TID for Blood Pressure Management, #60 TAB 0 Refills Gabapentin (Gabapentin) 600 Mg Tab 1200 MG PO BID, #60 TAB 0 Refills Olanzapine (Zyprexa) 15 Mg Tab 15 MG PO DAILY, #30 TAB 0 Refills Shon Roman DO Dec 17, 2016 11:40
[2016-12-17 12:58] VITALS: BP 183/91; PULSE 45; RESP 16; TEMP 97.3; O2SAT 96
[2016-12-17] MEDS ORDERED: DIFL100T PO (15:39)
[2016-12-18] MEDS ORDERED: PHARMACY ORDERED LAB ONE (05:45)
--- NOTE | 2016-12-19 08:37 | PQ ---
Physician Query Response Document PATIENT: MARY ALEXANDER : 1970 ADMIT DATE: 12/14/2016 5:46 PM DISCH DATE: 12/17/2016 4:30 PM RESPONDING PROVIDER #: [email or web address] QUERY TEXT: SIRS Underlying Cause Systemic Inflammatory Response Syndrome (SIRS) is documented in the Medical Record. Please specify th e underlying cause (includes suspected or probable) Such as: -- Infectious cause / process - With organ dysfunction -- Non-infectious cause / process - Without organ dysfunction - With organ dysfunction -- Other, please specify The patient's Clinical Indicators include: MEETS SIRS CRITERIA, TACHYCARDIA, FEBRILE, TACHYPNEA-PROG NOTES 12/16, 12/17 PID, POSSIBLE OVARIAN RIGHT ABSCESS VS. CYST- ALL PROG NOTES, D/C SUM BIPOLAR DISORDER. POLYSUBSTANCE ABUSE, DRUG SEEKING- PROG NOTES 12/16, 12/17 TEMP 12/14-101.2. AFEBRILE THEREAFTER 12/14/16: WBC NORMAL, RESP RATE 18-, PULSE 102, B/P 151/101 Query created by: Adriane Graf on 12/18/2016 8:48 AM RESPONSE TEXT: POSSIBLY DUE TO PID PELVIC INFLAMMATORY DISEASE FOR SIRS AND COMPLETE MEDICAL NONCOMPLIANCE AND DRUG SEEKING BEHAVIOR QUERY TEXT: Encephalopathy Type Encephalopathy is documented in the Medical Record. Please specify type Such as: -- Alcoholic -- Anoxic -- Due to medications or drugs (please specify) -- Hepatic failure (please specify if with or without coma) -- Hypertensive -- Metabolic -- Septic -- Toxic -- Wernicke?s -- Other, please specify Your prompt response is appreciated, please do not hesitate to contact the CDI/Coding Hotline with an y questions, comments and/or concerns you may have at [phone]. [phone]. The patient's Clinical Indicators include: EEG 12/16: MILD MODERATE SLOWING CONSITENT WITH ENCEPHALOPATHIC PROCESS OF VARIOUS ETIOLOGY, NO EPIL EPTIFORM FEATURES TO SUGGEST SEIZURE.- FINDING NOTED IN PROG NOTES AND DISCHARGE SUMMARY. POLYSUBSTANCE ABUSE, INTOXICATED OR UNDER INFLUENCE. WITHDRAWAL SYNDROME, HIUSTORY OF WITHDRAWAL SEI ZURE-ALL DOCUMENTS PID-ALL DOCUMENTS SIRS-PROG NOTES 12/16, 12/17 BIPOLAR DISORDER-ALL DOCUMENTS Query created by: Adriane Graf on 12/18/2016 8:58 AM RESPONSE TEXT: DUE TO SUSPECTED DRUG USE, PATIENT FOUND WITH MULTIPLE UNKNOWN PILLS STILL TAKING IN THE ROOM NOT PRE SCRIBED BY ME Electronically signed by: Shon Roman 12/19/2016 8:33 AM
== END 2016-12-17 16:30 | disposition home or self-care (01) | DRG 757 ==
LOC: NEPE 13:47 → NEDA 17:46 → N05A 20:07
PROVIDERS: ADMIT Hospitalist; ATTEND Hospitalist
DX: N73.0 Acute parametritis and pelvic cellulitis (principal); G92 Toxic encephalopathy; F19.939 Other psychoactive substance use, unspecified with withdrawal, unspecified; I10 Essential (primary) hypertension; D50.9 Iron deficiency anemia, unspecified; F17.210 Nicotine dependence, cigarettes, uncomplicated; N70.92 Oophoritis, unspecified; N83.201 Unspecified ovarian cyst, right side; J44.9 Chronic obstructive pulmonary disease, unspecified; N20.0 Calculus of kidney; D25.9 Leiomyoma of uterus, unspecified; E87.6 Hypokalemia; K21.9 Gastro-esophageal reflux disease without esophagitis; I25.2 Old myocardial infarction; G47.00 Insomnia, unspecified; T36.4X6A Underdosing of tetracyclines, initial encounter; G89.29 Other chronic pain; M54.9 Dorsalgia, unspecified; K64.9 Unspecified hemorrhoids; E03.9 Hypothyroidism, unspecified; F31.9 Bipolar disorder, unspecified; F41.9 Anxiety disorder, unspecified; Z59.0 Homelessness; Z76.5 Malingerer [conscious simulation]; Z86.73 Personal history of transient ischemic attack (TIA), and cerebral infarction without residual deficits; Z87.820 Personal history of traumatic brain injury; Z88.2 Allergy status to sulfonamides; Z91.128 Patient's intentional underdosing of medication regimen for other reason
CPT/HCPCS: 70450; 74177; 76937; 80053; 80202; 80307; 81001; 82140; 82565; 83036; 83605; 83735; 84100; 84439; 84443; 85025; 87040; 87106; 87205; 95819; 96360; 96361; J1650; J2270; J2405; J2543; J3370; J3480; J7030; J7050; Q9967

== ENCOUNTER 2017-02-08 14:53 | Emergency (ER) | payer SELFPAY ==
[~2017-02-08] VITALS: Ht 162.6 cm; Wt 65.0 kg
[~2017-02-08 14:53] MED LIST changes: +ANUS25SU RECTAL; -CLON0.3T PO; +CLON1 PO; +DIFL100T PO; -GABA600T PO; +HYDR-3799 PO; -KLON2TAB PO; +LACT PO; +LEVA500T33 PO; +LEVO25TA4 PO; +LISI-515 PO; +NEUR400C PO; +NICO14DI23 T-DERMAL; +OLAN15TA PO; +Shower Chair; +TRAM50 PO; -ZYPR15TA PO; +guaiFENesin ER PO
[2017-02-08 15:02] VITALS: BP 145/86; PULSE 93; RESP 20; TEMP 98.3; O2SAT 96
[2017-02-08] MEDS ORDERED: KETOROLAC TROMETHAMINE 60 MG/2 ML (IM) VIAL IM ONE (15:45)
--- NOTE | 2017-02-08 15:48 | PD ---
HPI Chief Complaint: Fall Time Seen by Provider: 15:25 Travel History International Travel<30 days: No Contact w/Intl Traveler<30days: No Traveled to known affect area: No History of Present Illness HPI 46-year-old female complains of right hip pain and right low back pain. Patient states that she fell off a ladder this morning. Patient states that she fell about 8 feet. Patient stated she landed on her right buttock area. Patient denies loss of consciousness. Patient denies any headache or neck pain. Patient denies any chest pain or shortness of breath. Patient denies abdominal pain. Patient complain of severe sharp pain localized to right buttock and right hip area. Patient states that the pain radiated down the right leg. Patient denies any other injury. Patient complains of numbness sensation to the right foot. On a scale of 1-10 the pain is a 10. Patient states that she took ibuprofen and Lortab 10 prior to arrival. Patient has past history of anxiety, depression, bipolar disorder, history of cervical cancer, COPD, hepatitis C, polysubstance abuse, seizure, IV drug abuse. PFSH Past Medical History Arthritis: No Asthma: Yes Autoimmune Disease: No Blood Disorders: No Bipolar Disorder: Yes Anxiety: Yes Depression: Yes Heart Rhythm Problems: No Cancer: Yes (CERVICAL, needs surgery yet) Cardiac Catheterization: No Cardiovascular Problems: Yes ([place]) High Cholesterol: No Chest Pain: No Congestive Heart Failure: No COPD: Yes Cerebrovascular Accident: Yes (TIA) Diabetes: No Diminished Hearing: No Endocrine: No Gastrointestinal Disorders: Yes (COLITIS) GERD: Yes Genitourinary: Yes Headaches: No Hepatitis: Yes (C) Hiatal Hernia: No Heparin Induced Thrombocytopen: No Herniated Disk: Yes Hypertension: Yes Immune Disorder: No Implanted Vascular Access Dvce: No Insomnia: Yes Kidney Stones: No Musculoskeletal: Yes Neurologic: Yes Psychiatric: Yes Reproductive: No Respiratory: Yes Immunizations Current: Yes Migraines: No Myocardial Infarction: Yes (2011) Renal Failure: No Seizures: Yes Sickle Cell Disease: No Sleep Apnea: No Thyroid Disease: No Ulcer: No PNEUMOCCOCAL Vaccine (Year): 2 ?: Not Menopausal: Yes : 10 Para: 6 Miscarriage: 3 : 1 Ectopic : Yes (1994) Ovarian Cysts: Yes Dilation and Curettage (D&C): Yes Tubal Ligation: Yes Past Surgical History Abdominal Surgery: Yes (appendix/colonscopy) AICD: No Appendectomy: Yes Arteriovenous Shunt: No Cardiac Surgery: No Coronary Artery Bypass Graft: No Ear Surgery: No Endocrine Surgery: No Eye Surgery: No Genitourinary Surgery: No Gynecologic Surgery: Yes (tubual ligation) Insulin Pump: No Joint Replacement: No Oral Surgery: No Pacemaker: No Thoracic Surgery: No Other Surgery: Yes (LEFT HAND SURGERY, left foot ) Social History Alcohol Use: No Tobacco Use: Yes (1/2 PPD) Substance Use: Yes (MARIJUANA) Allergies-Medications (Allergen,Severity, Reaction): Coded Allergies: Sulfa (Sulfonamide Antibiotics) (Unverified Allergy, Severe, Rash, ) magnesium (Unverified Adverse Reaction, Unknown, PRUITIC RASH, 02/08/17) magnesium sulfate (Unverified Adverse Reaction, Unknown, PRUITIC RASH, ) prochlorperazine (Unverified Adverse Reaction, Unknown, ANGINA, 02/08/17) terbutaline (Unverified Adverse Reaction, Unknown, HEART RATE ELEVATES, ) Reported Meds & Prescriptions Reported Meds & Active Scripts Active Robaxin (Methocarbamol) 750 Mg Tab 750 Mg PO QID Diflucan (Fluconazole) 100 Mg Tab 100 Mg PO DAILY Ultram (Tramadol HCl) 50 Mg Tab 50 Mg PO Q8H PRN Hydralazine HCl 25 Mg Tablet 50 Mg PO TID Levaquin (Levofloxacin) 500 Mg Tablet 500 Mg PO DAILY 10 Days Anusol-Hc Supp (Hydrocortisone Supp) 25 Mg Supp 25 Mg RECTAL TID Levothyroxine (Levothyroxine Sodium) 25 Mcg Tab 25 Mcg PO DAILY@0600 Acidophilus/l-Sporogenes (Lactobacillus Acidophilus) 35 Million Cell-25 Million Cell Tab 1 Tab PO TID [guaiFENesin ER] 600 MG Tabcr 600 Mg PO BID Olanzapine 15 Mg Tab 15 Mg PO HS Neurontin (Gabapentin) 400 Mg Cap 1,200 Mg PO BID Klonopin (Clonazepam) 1 Mg Tab 1 Mg PO TID Lisinopril 20 Mg Tab 20 Mg PO Q12HR Eq Nicotine (Nicotine) 14 Mg/24 Hour Dis 1 Patch T-DERMAL DAILY Pantoprazole (Pantoprazole Sodium) 40 Mg Tab 40 Mg PO DAILY 30 Days Dicyclomine (Dicyclomine HCl) 20 Mg Tab 20 Mg PO TID PRN 30 Days Doxycycline Hyclate 100 Mg Cap 100 Mg PO BID 14 Days Vistaril (Hydroxyzine Pamoate) 50 Mg Cap 100 Mg PO BID [Shower Chair] [place] (Hydrocodone-Acetaminophen) 5-325 mg Tab 1 Tab PO Q4H PRN Review of Systems General / Constitutional: No: Fever Eyes: No: Visual changes HENT: No: Headaches Cardiovascular: No: Chest Pain or Discomfort Respiratory: No: Shortness of Breath Gastrointestinal: No: Abdominal Pain Genitourinary: No: Dysuria Musculoskeletal: Positive: Pain Skin: No Rash Neurologic: No: Weakness Psychiatric: No: Depression Endocrine: No: Polydipsia Hematologic/Lymphatic: No: Easy Bruising Physical Exam Narrative GENERAL: Well-nourished, well-developed patient. SKIN: Focused skin assessment warm/dry. HEAD: Normocephalic. EYES: No scleral icterus. No injection or drainage. NECK: Supple, trachea midline. No JVD or lymphadenopathy. CARDIOVASCULAR: Regular rate and rhythm without murmurs, gallops, or rubs. RESPIRATORY: Breath sounds equal bilaterally. No accessory muscle use. GASTROINTESTINAL: Abdomen soft, non-tender, nondistended. MUSCULOSKELETAL: No cyanosis, or edema. BACK: Nontender without obvious deformity. No CVA tenderness. Moderate tenderness and palpation lateral and posterior aspect the right hip joint. Limited range of motion the right hip joint secondary to pain. Sensorimotor function distally intact. Data Data Last Documented VS Vital Signs Date Time Temp Pulse Resp B/P (MAP) Pulse Ox O2 Delivery O2 Flow Rate FiO2 02/08/17 15:02 98.3 93 20 145/86 (105) 96 Orders Orders Hip, Uni(Ap&Lat) W Ap Pelvis (02/08/17 15:33) Ketorolac Inj (Toradol Inj) (02/08/17 15:45) Ed Discharge Order (02/08/17 16:28) MDM Medical Decision Making Medical Screen Exam Complete: Yes Emergency Medical Condition: Yes Interpretation(s) Last Impressions Hip and Pelvis X-Ray 02/08/17 8383 Signed Impressions: Service Date/Time: Wednesday, February 08, 2017 15:49 - CONCLUSION: Unremarkable examination of the right hip. Elvis Wilson MD Differential Diagnosis Differential diagnosis including contusion, fracture, dislocation. Narrative Course 46-year-old female with right hip injury status post fall. Toradol 60 mg IM. Patient came in complains of right hip pain. 1625 PM. Patient came in originally complaining of right hip pain. I came back to see the patient after x-ray was done and patient was resting on the right side and lying on her right hip. Diagnosis Primary Impression: Contusion of right hip Patient Instructions: General Instructions Additional Instructions: Take medications as needed for pain. Follow-up with an orthopedist if persistent problem. Med/Other Pt SpecificInfo: Prescription(s) given Scripts Methocarbamol (Robaxin) 750 Mg Tab 750 MG PO QID for Muscle Spasm, #40 TAB 0 Refills Prov: Amado Peralta MD 02/08/17 Disposition: 01 DISCHARGE HOME Condition: Stable Amado Peralta MD Feb 08, 2017 15:48
--- NOTE | 2017-02-08 16:16 | RADRPT ---
EXAM DATE/TIME: 02/08/2017 15:49 [facility] COMPARISON: No previous studies available for comparison. INDICATIONS : Pain from fall. MEDICAL HISTORY : Myocardial infarction. Inflammatory bowel disease. Hepatitis C. Brain injury. Seizures. CVA. Herniate d lumbar discs. Migraines. Palpitations. HTN. COPD. Irregular heartbeat. Asthma. Colitis. Ulcer. Godfrey temesis. GERD. Ovarian cysts. Ectopic . UTI. Chronic back pain. Restless leg syndrome. PTSD. Bipolar disorder. Anxiety. Substance use. Insomnia. MRSA. SURGICAL HISTORY : Appendectomy. Tubal ligation. ENCOUNTER: Initial ACUITY: 1 day PAIN SCORE: 9/10 LOCATION: Right pelvis FINDINGS: Examination of the right hip was performed with AP Pelvis. The primary and secondary trabecular cruz anita of the femoral neck is intact. The hip joint is of normal width without significant sclerosis or bony hypertrophy. The acetabulum is grossly intact. CONCLUSION: Unremarkable examination of the right hip. Elvis Wilson MD on February 08, 2017 at 16:14 Board Certified Radiologist. This report was verified electronically.
[2017-02-08] MEDS ORDERED: ROBA750T PO (16:28)
[2017-02-08 16:57] VITALS: RESP 17
== END 2017-02-08 16:59 | disposition home or self-care (01) ==
LOC: NEPD 14:53
DX: S70.01XA Contusion of right hip, initial encounter (principal); R20.0 Anesthesia of skin; F31.9 Bipolar disorder, unspecified; J44.9 Chronic obstructive pulmonary disease, unspecified; R56.9 Unspecified convulsions; K21.9 Gastro-esophageal reflux disease without esophagitis; I10 Essential (primary) hypertension; W11.XXXA Fall on and from ladder, initial encounter; Z86.19 Personal history of other infectious and parasitic diseases
CPT/HCPCS: 73502; 96372; 99284; J1885

== ENCOUNTER 2017-02-18 09:40 | Emergency (ER) | payer SELFPAY ==
[~2017-02-18] VITALS: Ht 162.6 cm; Wt 62.0 kg
[~2017-02-18 09:40] MED LIST changes: +ROBA750T PO
[2017-02-18 09:44] VITALS: BP 183/108; PULSE 107; RESP 22; TEMP 98.7; O2SAT 98
[2017-02-18] MEDS ORDERED: GABA600T PO (10:03)
[2017-02-18] MEDS ORDERED: ZYPR20TA PO (10:04)
[2017-02-18] MEDS ORDERED: SODIUM CHLOR 0.9% 1000 ML INJ 1,000 ML IV SCH (10:24)
--- NOTE | 2017-02-18 10:24 | PD ---
HPI Chief Complaint: Abdominal Pain Time Seen by Provider: 10:15 Travel History International Travel<30 days: No Contact w/Intl Traveler<30days: No Traveled to known affect area: No History of Present Illness HPI 46-year-old female presents to the emergency Department with complaint of bilateral flank pain and lower abdominal pain that started last night and worsened this morning. Denies fever, vomiting, diarrhea. Reports abnormal vaginal discharge and odor. Reports dysuria and urinary frequency. Has history of kidney stones. Denies hematuria. Took 2 of her friends Lortabs for pain. Rates pain 10/10. Describes it as contractions during labor. Pain is constant and unrelieved. No known relieving or aggravating factors. Has an established primary care provider. History of drug abuse and says she's been clean for 5 months. History of seizures and kidney stones. History of hepatitis C. History of tubal ligation. Allergies to sulfa, magnesium, prochloraperzine, terbutaline. PFSH Past Medical History Arthritis: No Asthma: Yes Autoimmune Disease: No Blood Disorders: No Bipolar Disorder: Yes Anxiety: Yes Depression: Yes Heart Rhythm Problems: No Cancer: Yes (CERVICAL, needs surgery yet) Cardiac Catheterization: No Cardiovascular Problems: Yes (ND) High Cholesterol: No Chest Pain: No Congestive Heart Failure: No COPD: Yes Cerebrovascular Accident: Yes (TIA) Diabetes: No Diminished Hearing: No Endocrine: No Gastrointestinal Disorders: Yes (COLITIS) GERD: Yes Genitourinary: Yes Headaches: No Hepatitis: Yes (C) Hiatal Hernia: No Heparin Induced Thrombocytopen: No Herniated Disk: Yes Hypertension: Yes Immune Disorder: No Implanted Vascular Access Dvce: No Insomnia: Yes Kidney Stones: No Musculoskeletal: Yes Neurologic: Yes Psychiatric: Yes Reproductive: No Respiratory: Yes Immunizations Current: Yes Migraines: No Myocardial Infarction: Yes (2011) Renal Failure: No Seizures: Yes Sickle Cell Disease: No Sleep Apnea: No Thyroid Disease: No Ulcer: No PNEUMOCCOCAL Vaccine (Year): 2 ?: Not LMP: 2 MONTHS AGO Menopausal: Yes : 10 Para: 6 Miscarriage: 3 : 1 Ectopic : Yes (1994) Ovarian Cysts: Yes Dilation and Curettage (D&C): Yes Tubal Ligation: Yes Past Surgical History Abdominal Surgery: Yes ( ) AICD: No Appendectomy: Yes Arteriovenous Shunt: No Cardiac Surgery: No Coronary Artery Bypass Graft: No Ear Surgery: No Endocrine Surgery: No Eye Surgery: No Genitourinary Surgery: No Gynecologic Surgery: Yes (tubual ligation) Insulin Pump: No Joint Replacement: No Oral Surgery: No Pacemaker: No Thoracic Surgery: No Social History Alcohol Use: No Tobacco Use: Yes (1/2 PPD) Substance Use: Yes (MARIJUANA) Allergies-Medications (Allergen,Severity, Reaction): Coded Allergies: Sulfa (Sulfonamide Antibiotics) (Unverified Allergy, Severe, Rash, ) magnesium (Unverified Adverse Reaction, Unknown, PRUITIC RASH, 02/08/17) magnesium sulfate (Unverified Adverse Reaction, Unknown, PRUITIC RASH, ) prochlorperazine (Unverified Adverse Reaction, Unknown, ANGINA, 02/08/17) terbutaline (Unverified Adverse Reaction, Unknown, HEART RATE ELEVATES, ) Reported Meds & Prescriptions Reported Meds & Active Scripts Active Klonopin (Clonazepam) 1 Mg Tab 1 Mg PO TID Dicyclomine (Dicyclomine HCl) 20 Mg Tab 20 Mg PO TID PRN 30 Days Vistaril (Hydroxyzine Pamoate) 50 Mg Cap 100 Mg PO BID Reported Zyprexa (Olanzapine) 20 Mg Tab 20 Mg PO HS Gabapentin 600 Mg Tab 1,200 Mg PO BID Review of Systems Except as stated in HPI: all other systems reviewed are Neg Physical Exam Narrative GENERAL: Well-nourished, well-developed female patient, in no acute distress; afebrile, nontoxic-appearing; tearful SKIN: Warm and dry. HEAD: Atraumatic. Normocephalic. EYES: Pupils equal and round. No scleral icterus. No injection or drainage. ENT: Mucous membranes pink and moist. NECK: Trachea midline. No lymphadenopathy. CARDIOVASCULAR: Regular rate and rhythm. No murmur appreciated. RESPIRATORY: No accessory muscle use. Clear to auscultation. Breath sounds equal bilaterally. GASTROINTESTINAL: Abdomen soft, tender to lower quadrant bilaterally, nondistended. Patient guarding. Hepatic and splenic margins not palpable. No rigidity, rebound tenderness. PELVIC: Exam done in the presence of a nurse. Speculum exam reveals non/ edematous and non/erythematous cervix with light green , mucopurulent, foul- smelling discharge. Bimanual exam reveals no palpable masses or adnexa tenderness, no uterine tenderness. [-] cervical motion tenderness. BACK: Bilateral CVA tenderness; pauin ios put opf prioptuio t. MUSCULOSKELETAL: No obvious deformities. No clubbing. No cyanosis. No edema. NEUROLOGICAL: Awake and alert. No obvious cranial nerve deficits. Motor grossly within normal limits. Normal speech. PSYCHIATRIC: Appropriate mood and affect; insight and judgment normal. Data Data Last Documented VS Vital Signs Date Time Temp Pulse Resp B/P (MAP) Pulse Ox O2 Delivery O2 Flow Rate FiO2 02/18/17 15:24 02/18/17 09:44 98.7 107 22 98 Room Air Orders Orders Complete Blood Count With Diff (02/18/17 10:24) Comprehensive Metabolic Panel (02/18/17 10:24) Lipase (02/18/17 10:24) Urinalysis - C+S If Indicated (02/18/17 10:24) Ct Abd/Pel W/O Iv Contrast (02/18/17 10:24) Iv Access Insert/Monitor (02/18/17 10:24) Ecg Monitoring (02/18/17 10:24) Oximetry (02/18/17 10:24) Ondansetron Inj (Zofran Inj) (02/18/17 10:30) Sodium Chlor 0.9% 1000 Ml Inj (Ns 1000 M (02/18/17 10:24) Sodium Chloride 0.9% Flush (Ns Flush) (02/18/17 10:30) Ed Urine Pregnancytest Poc (02/18/17 10:24) Gc And Chlamydia Pcr (02/18/17 10:24) Wet Prep Profile (02/18/17 10:24) Ketorolac Inj (Toradol Inj) (02/18/17 10:30) Ketorolac Inj (Toradol Inj) (02/18/17 12:00) Us Pelvis Comp W Doppler (02/18/17 12:19) Morphine Inj (Morphine Inj) (02/18/17 12:30) Azithromycin (Zithromax) (02/18/17 12:30) Ceftriaxone Inj (Rocephin Inj) (02/18/17 12:30) Ed Discharge Order (02/18/17 14:35) Lidocaine 1% Inj (Xylocaine 1% Inj) (02/18/17 15:00) Labs Laboratory Tests Test 02/18/17 11:08 02/18/17 12:13 White Blood Count 6.0 TH/MM3 Red Blood Count 4.67 MIL/MM3 Hemoglobin 12.1 GM/DL Hematocrit 37.4 % Mean Corpuscular Volume 80.0 FL Mean Corpuscular Hemoglobin 26.0 PG Mean Corpuscular Hemoglobin Concent 32.4 % Red Cell Distribution Width 18.0 % Platelet Count 317 TH/MM3 Mean Platelet Volume 9.2 FL Neutrophils (%) (Auto) 59.0 % Lymphocytes (%) (Auto) 31.0 % Monocytes (%) (Auto) 6.8 % Eosinophils (%) (Auto) 2.1 % Basophils (%) (Auto) 1.1 % Neutrophils # (Auto) 3.5 TH/MM3 Lymphocytes # (Auto) 1.9 TH/MM3 Monocytes # (Auto) 0.4 TH/MM3 Eosinophils # (Auto) 0.1 TH/MM3 Basophils # (Auto) 0.1 TH/MM3 CBC Comment DIFF FINAL Differential Comment Urine Color YELLOW Urine Turbidity CLOUDY Urine pH 7.0 Urine Specific [place] 1.024 Urine Protein 30 mg/dL Urine Glucose (UA) NEG mg/dL Urine Ketones NEG mg/dL Urine Occult Blood NEG Urine Nitrite NEG Urine Bilirubin NEG Urine Urobilinogen 2.0 MG/DL Urine Leukocyte Esterase SMALL Urine RBC 1 /hpf Urine WBC 3 /hpf Urine Squamous Epithelial Cells 7 /hpf Urine Amorphous Sediment MOD Urine Mucus FEW /lpf Microscopic Urinalysis Comment CULT NOT INDICATED Blood Urea Nitrogen 10 MG/DL Creatinine 0.84 MG/DL Random Glucose 104 MG/DL Total Protein 8.2 GM/DL Albumin 3.5 GM/DL Calcium Level 9.1 MG/DL Alkaline Phosphatase 116 U/L Aspartate Amino Transf (AST/SGOT) 23 U/L Alanine Aminotransferase (ALT/SGPT) 18 U/L Total Bilirubin 0.3 MG/DL Sodium Level 139 MEQ/L Potassium Level 3.9 MEQ/L Chloride Level 108 MEQ/L Carbon Dioxide Level 22.8 MEQ/L Anion Gap 8 MEQ/L Estimat Glomerular Filtration Rate 74 ML/MIN Lipase 64 U/L Clue Cells (Wet Prep) NONE SEEN Vaginal Trichomonas (Wet Prep) NONE SEEN Vaginal Yeast (Wet Prep) NONE SEEN Chlamydia trachomatis DNA (PCR) NOT DETECTED Neisseria gonorrhoeae DNA (PCR) NOT DETECTED MDM Medical Decision Making Medical Screen Exam Complete: Yes Emergency Medical Condition: Yes Medical Record Reviewed: Yes Differential Diagnosis Pyelonephritis, urinary tract infection, kidney stones, PID Narrative Course 46-year-old female with lower abdominal pain, abnormal vaginal discharge and odor and dysuria. UPT negative. History of kidney stones and has bilateral flank tenderness. Patient is tearful and her pain on physical exam is out of proportion. CBC, CMP, lipase, urinalysis, UPT, wet prep, chlamydia, gonorrhea, CT abdomen/pelvis, IV site, normal saline bolus, Toradol, Zofran ordered. 1148: CBC unremarkable. Urinalysis without signs of infection. 1213: CT abdomen/pelvis concludes: Small bilateral nonobstructing renal calculi. Kidneys otherwise unremarkable inflammatory change; Cystic structure in the right adnexa which is smaller in size and has changed position. This remains most consistent with an ovarian cyst. 1220: I spoke with Dr. Stark and he recommended pelvic US. 1430: Pelvic ultrasound concluded: Last 24 hours Impressions Pelvis Ultrasound 02/18/17 1219 Signed Impressions: Service Date/Time: Saturday, February 18, 2017 12:52 - CONCLUSION: 1. Fundal leiomyoma measuring up to 3 x 3.4 cm. 2. Ill-defined hypoechoic masslike area in the posterior vagina and cervical region measuring 3.1 x 3 cm. 3. Moderate to large cyst in the right ovary measuring up to 5.8 x 3.7 cm. Cristobal Medellin MD Abdomen/Pelvis CT 02/18/17 1024 Signed Impressions: Service Date/Time: Saturday, February 18, 2017 11:31 - CONCLUSION: 1. Small bilateral nonobstructing renal calculi. Kidneys otherwise unremarkable inflammatory change. 2. Cystic structure in the right adnexa which is smaller in size and has changed position. This remains most consistent with an ovarian cyst. Cristobal Medellin MD Patient provided reports of CT and ultrasound. 1431: Clue cells, vaginal Trichomonas, vaginal yeast negative. Patient empirically treated in the ER with azithromycin and Rocephin. Instructed patient to follow-up with gynecology. Instructed patient to follow up with primary care provider. Patient verbalizes understanding and agreement with treatment plan. Patient is medically cleared and stable for discharge. Discussed reasons to return to the emergency department. Patient agrees with treatment plan. The patients vital signs are stable and the patient is stable for outpatient follow-up and treatment. Patient discharged home, stable and in no acute distress. Diagnosis Primary Impression: Abdominal pain Qualified Codes: R10.30 - Lower abdominal pain, unspecified Additional Impression: Leiomyoma Referrals: [facility] Primary Care Physician Patient Instructions: Abdominal Pain (ED), General Instructions Additional Instructions: Ibuprofen or Tylenol as directed and as needed for pain and inflammation You have been treated for chlamydia and gonorrhea at this visit Follow-up with gynecology Follow-up with primary care provider Med/Other Pt SpecificInfo: No Change to Meds, No Meds Exist/No RX given Disposition: DISCHARGE HOME Condition: Stable Jordyn Capone Feb 18, 2017 10:24
[2017-02-18] MEDS ORDERED: SODIUM CHLORIDE 0.9% FLUSH 10 ML FLUSH IV FLUSH PRN (10:30)
[2017-02-18] MEDS ORDERED: ONDANSETRON HCL 4 MG/2 ML VIAL IVP ONE (10:30)
[2017-02-18] MEDS ORDERED: KETOROLAC TROMETHAMINE 30 MG/ML (IVP) VIAL IV PUSH ONE (10:30)
[2017-02-18 11:29] LABS: AUTOMATED NEUTROPHIL # 3.5 TH/MM3 (1.8-7.7); BASOPHIL # 0.1 TH/MM3 (0-0.2); BASOPHIL % 1.1 % (0.0-2.0); EOSINOPHIL # 0.1 TH/MM3 (0-0.4); EOSINOPHIL % 2.1 % (0.0-4.0); HEMATOCRIT 37.4 % (35.0-46.0); HEMOGLOBIN 12.1 GM/DL (11.6-15.3); LYMPHOCYTE # 1.9 TH/MM3 (1.0-4.8); MEAN CORPUSCULAR HGB CONC 32.4 % (32.0-36.0); MEAN PLATELET VOLUME 9.2 FL (7.0-11.0); MONO % 6.8 % (0.0-8.0); MONOCYTE # 0.4 TH/MM3 (0-0.9); PLATELET COUNT 317 TH/MM3 (150-450); RED BLOOD COUNT 4.67 MIL/MM3 (4.00-5.30)
[2017-02-18 11:44] LABS: AMORPHOUS SEDIMENT, URINE MOD; BILIRUBIN, URINE NEG (NEG); BLOOD, URINE NEG (NEG); GLUCOSE,URINE NEG (NEG); KETONE, URINE NEG (NEG); MUCUS URINE FEW /lpf (OCC); NITRITE,URINE NEG (NEG); SQUAMOUS EPITHELIAL CELL URINE 7 /hpf (0-5); URINE COLOR YELLOW (YELLW/STRAW); URINE LEUKOCYTE ESTERASE SMALL (NEG)
[2017-02-18 11:50] LABS: ALBUMIN 3.5 GM/DL (3.4-5.0); ALT (GPT) 18 U/L (10-53); AST (GOT) 23 U/L (15-37); BICARBONATE 22.8 MEQ/L (21.0-32.0); BLOOD UREA NITROGEN 10 MG/DL (7-18); CALCIUM 9.1 MG/DL (8.5-10.1); CHLORIDE 108 MEQ/L (98-107); CREATININE 0.84 MG/DL (0.50-1.00); GLOMERULAR FILTRATION RATE 74 ML/MIN (>89); GLUCOSE,RANDOM 104 MG/DL (74-106); LIPASE 64 U/L (73-393); SODIUM (NA) 139 MEQ/L (136-145)
[2017-02-18 11:53] LABS: ALKALINE PHOSPHATASE 116 U/L (45-117); TOTAL BILIRUBIN ADULT 0.3 MG/DL (0.2-1.0); TOTAL PROTEIN 8.2 GM/DL (6.4-8.2)
[2017-02-18] MEDS ORDERED: KETOROLAC TROMETHAMINE 60 MG/2 ML (IM) VIAL IM ONE (12:00)
--- NOTE | 2017-02-18 12:05 | RADRPT ---
EXAM DATE/TIME: 02/18/2017 11:31 [facility] COMPARISON: CT ABDOMEN & PELVIS W CONTRAST, December 08, 2016, 1:47. CT ABDOMEN & PELVIS W/O CONTRAST, July 20 17, 17:03. INDICATIONS : Mid lower pelvic, left flank pain. History of known bilateral renal calculi. ORAL CONTRAST: No oral contrast ingested. RADIATION DOSE: 9.33 CTDIvol (mGy) MEDICAL HISTORY : Hepatitis C. Cardiovascular disease Renal calculi. cervical cancer, colitis SURGICAL HISTORY : Tubal ligation. Appendectomy. Cholecystectomy. ENCOUNTER: Initial ACUITY: 2 days PAIN SCALE: 10/10 LOCATION: Abdomen TECHNIQUE: Volumetric scanning of the abdomen and pelvis was performed. Using automated exposure control and ad justment of the mA and/or kV according to patient size, radiation dose was kept as low as reasonably achievable to obtain optimal diagnostic quality images. DICOM format image data is available electro nically for review and comparison. FINDINGS: LOWER LUNGS: The visualized lower lungs are clear. LIVER: Homogeneous density without lesion. There is no dilation of the biliary tree. No calcified gallston es. SPLEEN: Normal size without lesion. PANCREAS: Within normal limits. KIDNEYS: Normal in size and shape. There is no mass or hydronephrosis. There is a single small 1-2 mm right r enal calculus which is increased mildly in size. In the left kidney there are 2 small left renal calc ulus without significant change. There is no inflammatory change. The visualized portions of the uret ers are unremarkable. There are multiple calcified phleboliths again noted in the pelvis. ADRENAL GLANDS: Within normal limits. VASCULAR: There is no aortic aneurysm. BOWEL/MESENTERY: The stomach, small bowel, and colon demonstrate no acute abnormality. There is no free intraperitone al air or fluid. ABDOMINAL WALL: Within normal limits. RETROPERITONEUM: There is no lymphadenopathy. BLADDER: No wall thickening or mass. REPRODUCTIVE: The uterus remains prominent. The endometrium is prominent but unchanged. Again noted is a cystic str ucture in the right adnexa which is located more posteriorly than on the prior study. This now measur es approximately 3.8 x 3 cm in diameter compared to 5.4 x 3.9 cm. INGUINAL: There is no lymphadenopathy or hernia. MUSCULOSKELETAL: Within normal limits for patient age. CONCLUSION: 1. Small bilateral nonobstructing renal calculi. Kidneys otherwise unremarkable inflammatory change. 2. Cystic structure in the right adnexa which is smaller in size and has changed position. This remai ns most consistent with an ovarian cyst. Cristobal Medellin MD on February 18, 2017 at 11:58 Board Certified Radiologist. This report was verified electronically.
[2017-02-18] MEDS ORDERED: LIDOCAINE HCL 1% 50 ML VIAL IM ONE (12:30)
[2017-02-18] MEDS ORDERED: cefTRIAXone 250 MG VIAL IM ONE (12:30)
[2017-02-18] MEDS ORDERED: MORPHINE SULFATE 2 MG/ML INJ IV PUSH ONE (12:30)
[2017-02-18] MEDS ORDERED: AZITHROMYCIN 250 MG TAB PO ONE (12:30)
--- NOTE | 2017-02-18 13:47 | RADRPT ---
EXAM DATE/TIME: 02/18/2017 12:52 [facility] COMPARISON: No previous studies available for comparison. INDICATIONS : Midline pelvic pain. History of vaginal mass. MEDICAL HISTORY : Gastroesophageal reflux disease. TIA. Colitis. Seizures. PID. Ectopic , 2005. Cervical c ancer. Hepatitis C. MRSA. SURGICAL HISTORY : Tubal ligation. Hand and foot surgery. Dilation and curettage ENCOUNTER: Initial ACUITY: 2 days PAIN SCORE: 6/10 LOCATION: Bilateral pelvis MEASUREMENTS: UTERUS: 10.8 x 4.8 x 7.0 cm ENDOMETRIAL STRIPE: 10 mm RIGHT OVARY: 2.7 x 1.9 x 1.8 cm LEFT OVARY: 4.2 x 2.2 x 2.9 cm FINDINGS: UTERUS: The myometrium has homogeneous echotexture with a focal hypoechoic masslike area in the fundus measur ing 3 x 2.3 x 3.4 cm.. There is an ill-defined hypoechoic masslike area in the vagina and cervical r egion measuring 3.1 x 3 cm. RIGHT OVARY: There is a simple cyst measuring 5.8 x 3.7 x 4.3 cm. LEFT OVARY: Ovary contains no mass or significant cystic lesion. MISCELLANEOUS: No free fluid. CONCLUSION: 1. Fundal leiomyoma measuring up to 3 x 3.4 cm. 2. Ill-defined hypoechoic masslike area in the posterior vagina and cervical region measuring 3.1 x 3 cm. 3. Moderate to large cyst in the right ovary measuring up to 5.8 x 3.7 cm. Cristobal Medellin MD on February 18, 2017 at 13:42 Board Certified Radiologist. This report was verified electronically.
[2017-02-18] MEDS ORDERED: LIDOCAINE HCL 1% 30 ML VIAL INFIL ONE (14:30)
[2017-02-18] MEDS ORDERED: LIDOCAINE HCL 1% 20 ML VIAL INFIL ONE (15:00)
== END 2017-02-18 15:38 | disposition home or self-care (01) ==
LOC: NEPD 09:40
DX: R10.30 Lower abdominal pain, unspecified (principal); D25.9 Leiomyoma of uterus, unspecified; N20.0 Calculus of kidney; N89.8 Other specified noninflammatory disorders of vagina; B19.20 Unspecified viral hepatitis C without hepatic coma; J44.9 Chronic obstructive pulmonary disease, unspecified; I10 Essential (primary) hypertension; F12.90 Cannabis use, unspecified, uncomplicated; Z72.0 Tobacco use
CPT/HCPCS: 74176; 76856; 80053; 81001; 83690; 84703; 85025; 87210; 87491; 87591; 93975; 96361; 96372; 96374; 96375; 99285; J1885; J2270; J2405; J7030

== ENCOUNTER 2017-02-21 15:21 | Emergency (ER) | payer SELFPAY ==
[~2017-02-21] VITALS: Ht 162.6 cm; Wt 68.0 kg
[~2017-02-21 15:21] MED LIST changes: -ANUS25SU RECTAL; -DIFL100T PO; -DOXY100C PO; +GABA600T PO; -HYDR-3799 PO; -LACT PO; -LEVA500T33 PO; -LEVO25TA4 PO; -LISI-515 PO; -NEUR400C PO; -NICO14DI23 T-DERMAL; -NORC5TAB PO; -OLAN15TA PO; -PANT40TA3 PO; -ROBA750T PO; -Shower Chair; -TRAM50 PO; +ZYPR20TA PO; -guaiFENesin ER PO
[2017-02-21 15:40] VITALS: BP 160/101; PULSE 92; RESP 20; O2SAT 98
--- NOTE | 2017-02-21 15:44 | PD ---
HPI Chief Complaint: Anxiety Time Seen by Provider: 15:35 Travel History International Travel<30 days: No Contact w/Intl Traveler<30days: No Traveled to known affect area: No History of Present Illness HPI 46-year-old female came to the emergency room crying saying that she does not have anymore of her prescription medications and does not see her prescribing physician for another 4 days. The last time she took her medications was 3 days ago. She feels sad and anxious and shaky. Vital signs were stable in triage. Patient is on Klonopin among other medications. She is awake and answering questions although she has a grimace face and was like she is trying to cry. No history of seizures. Patient has been seen in the emergency room multiple times in the past. She has history of prescription drug abuse. [facility] Past Medical History Narrative Medical List of her past apical, surgical, social and family history is reviewed from the nursing note. Arthritis: No Asthma: Yes Autoimmune Disease: No Blood Disorders: No Bipolar Disorder: Yes Anxiety: Yes Depression: Yes Heart Rhythm Problems: No Cancer: Yes (CERVICAL, needs surgery yet) Cardiac Catheterization: No Cardiovascular Problems: Yes (ND) High Cholesterol: No Chest Pain: No Congestive Heart Failure: No COPD: Yes Cerebrovascular Accident: Yes (TIA) Diabetes: No Diminished Hearing: No Endocrine: No Gastrointestinal Disorders: Yes (COLITIS) GERD: Yes Genitourinary: Yes Headaches: No Hepatitis: Yes (C) Hiatal Hernia: No Heparin Induced Thrombocytopen: No Herniated Disk: Yes Hypertension: Yes Immune Disorder: No Implanted Vascular Access Dvce: No Insomnia: Yes Kidney Stones: No Musculoskeletal: Yes Neurologic: Yes Psychiatric: Yes Reproductive: No Respiratory: Yes Immunizations Current: Yes Migraines: No Myocardial Infarction: Yes (2011) Renal Failure: No Seizures: Yes Sickle Cell Disease: No Sleep Apnea: No Thyroid Disease: No Ulcer: No PNEUMOCCOCAL Vaccine (Year): 2 Menopausal: Yes : 10 Para: 6 Miscarriage: 3 : 1 Ectopic : Yes (1994) Ovarian Cysts: Yes Dilation and Curettage (D&C): Yes Tubal Ligation: Yes Past Surgical History Abdominal Surgery: Yes ( ) AICD: No Appendectomy: Yes Arteriovenous Shunt: No Cardiac Surgery: No Coronary Artery Bypass Graft: No Ear Surgery: No Endocrine Surgery: No Eye Surgery: No Genitourinary Surgery: No Gynecologic Surgery: Yes (tubual ligation) Insulin Pump: No Joint Replacement: No Oral Surgery: No Pacemaker: No Thoracic Surgery: No Social History Alcohol Use: No Tobacco Use: Yes (1/2 PPD) Substance Use: Yes (MARIJUANA) Allergies-Medications (Allergen,Severity, Reaction): Coded Allergies: Sulfa (Sulfonamide Antibiotics) (Unverified Allergy, Severe, Rash, ) magnesium (Unverified Adverse Reaction, Unknown, PRUITIC RASH, 02/08/17) magnesium sulfate (Unverified Adverse Reaction, Unknown, PRUITIC RASH, ) prochlorperazine (Unverified Adverse Reaction, Unknown, ANGINA, 02/08/17) terbutaline (Unverified Adverse Reaction, Unknown, HEART RATE ELEVATES, ) Comments List of her allergies reviewed from the nursing note. Reported Meds & Prescriptions Reported Meds & Active Scripts Active Klonopin (Clonazepam) 1 Mg Tab 1 Mg PO TID Dicyclomine (Dicyclomine HCl) 20 Mg Tab 20 Mg PO TID PRN 30 Days Vistaril (Hydroxyzine Pamoate) 50 Mg Cap 100 Mg PO BID Reported Clonidine (Clonidine HCl) 0.1 Mg Tab Unknown Dose PO BID Zyprexa (Olanzapine) 20 Mg Tab 20 Mg PO HS Gabapentin 600 Mg Tab 1,200 Mg PO BID Narrative Medication List of her home medications reviewed from the nursing note. Review of Systems Except as stated in HPI: all other systems reviewed are Neg Psychiatric: Positive: Anxiety, Substance Abuse Physical Exam Narrative GENERAL: Awake, alert, disheveled, anxious SKIN: Focused skin assessment warm/dry. HEAD: Atraumatic. Normocephalic. EYES: Pupils equal and round. No scleral icterus. No injection or drainage. ENT: No nasal bleeding or discharge. Mucous membranes pink and moist. NECK: Trachea midline. No JVD. CARDIOVASCULAR: Regular rate and rhythm. No murmur appreciated. RESPIRATORY: No accessory muscle use. Clear to auscultation. Breath sounds equal bilaterally. GASTROINTESTINAL: Abdomen soft, non-tender, nondistended. Hepatic and splenic margins not palpable. MUSCULOSKELETAL: No obvious deformities. No clubbing. No cyanosis. No edema. NEUROLOGICAL: Awake and alert. No obvious cranial nerve deficits. Motor grossly within normal limits. Normal speech. PSYCHIATRIC: Appropriate mood and affect; insight and judgment normal. Data Data Last Documented VS Orders Orders Lorazepam (Ativan) (02/21/17 16:00) Drug Screen, Random Urine (02/21/17 15:51) Ed Urine Pregnancytest Poc (02/21/17 15:51) Gabapentin (Neurontin) (02/21/17 16:45) Lorazepam (Ativan) (02/21/17 16:45) Ed Discharge Order (02/21/17 16:49) Labs Laboratory Tests Test 02/21/17 16:03 Urine Opiates Screen POS Urine Barbiturates Screen NEG Urine Amphetamines Screen NEG Urine Benzodiazepines Screen NEG Urine Cocaine Screen POS Urine Cannabinoids Screen POS MDM Medical Decision Making Medical Screen Exam Complete: Yes Emergency Medical Condition: Yes Medical Record Reviewed: Yes Differential Diagnosis Medication refill, possible prescription abuse Narrative Course 4:08 PM patient has a long history of prescription and substance abuse. I feel extremely uncomfortable refilling all her prescriptions at this point. I do not mind giving her a dose of Ativan in the emergency department. I've explained this to the patient and she understands. She will be discharged home after that. Procedures EKG Prior to Arrival: No Diagnosis Primary Impression: Polysubstance abuse Additional Impression: History of prescription drug abuse Disposition: 01 DISCHARGE HOME Condition: Stable Josette Fletcher MD Feb 21, 2017 15:44
[2017-02-21] MEDS ORDERED: LORazepam 1 MG TAB PO ONE ×2 (16:00→16:45)
[2017-02-21] MEDS ORDERED: CLON0.1T PO (16:01)
[2017-02-21] MEDS ORDERED: GABAPENTIN 300 MG CAP PO ONE (16:45)
[2017-02-21 17:09] VITALS: BP 137/89; PULSE 74; RESP 18; O2SAT 96
== END 2017-02-21 17:36 | disposition home or self-care (01) ==
LOC: PHED 15:21
DX: F19.10 Other psychoactive substance abuse, uncomplicated (principal); F41.9 Anxiety disorder, unspecified; F31.9 Bipolar disorder, unspecified; J44.9 Chronic obstructive pulmonary disease, unspecified; I10 Essential (primary) hypertension; K21.9 Gastro-esophageal reflux disease without esophagitis; I25.2 Old myocardial infarction; G47.00 Insomnia, unspecified; Z86.73 Personal history of transient ischemic attack (TIA), and cerebral infarction without residual deficits
CPT/HCPCS: 80307; 84703; 99283

== ENCOUNTER 2017-03-08 16:12 | Emergency (ER) | payer SELFPAY ==
[~2017-03-08] VITALS: Ht 162.6 cm; Wt 64.5 kg
[~2017-03-08 16:12] MED LIST changes: +CLON0.1T PO
[2017-03-08 16:17] VITALS: BP 180/110; PULSE 115; RESP 18; TEMP 98.7; O2SAT 98
[2017-03-08] MEDS ORDERED: VIST25CA PO (18:07)
--- NOTE | 2017-03-08 18:08 | PD ---
HPI Chief Complaint: Anxiety Time Seen by Provider: 17:59 Travel History International Travel<30 days: No Contact w/Intl Traveler<30days: No Traveled to known affect area: No History of Present Illness HPI 47-year-old female presents to the emergency department complaining of anxiety and she can't stop crying. She said her daughter 3 days ago. Denies suicidal or homicidal ideations. She has history of polysubstance abuse and has been seen here multiple times. On her last visit she was positive for opiates, cocaine, and cannabinoids. She says she got out of drug rehabilitation one week ago and has not relapsed. She has prescriptions for Klonopin and states that her fianc took it from her. Denies chest pain, shortness of breath, abdominal pain, vomiting, fevers. Symptoms are mild in severity. No known aggravating or relieving factors. Has not taken any medications or tried any treatments to alleviate her symptoms. Dr. Bush is her primary care provider. Allergies as listed on the chart. History of COPD. Has no other medical complaints. No other modifying factors or associated signs and symptoms. PFSH Past Medical History Arthritis: No Asthma: Yes Autoimmune Disease: No Blood Disorders: No Bipolar Disorder: Yes Anxiety: Yes Depression: Yes Heart Rhythm Problems: No Cancer: Yes (CERVICAL, needs surgery yet) Cardiac Catheterization: No Cardiovascular Problems: Yes High Cholesterol: No Chest Pain: No Congestive Heart Failure: No COPD: Yes Cerebrovascular Accident: Yes Diabetes: No Diminished Hearing: No Endocrine: No Gastrointestinal Disorders: Yes (COLITIS) GERD: Yes Genitourinary: Yes Headaches: No Hepatitis: Yes (C) Hiatal Hernia: No Heparin Induced Thrombocytopen: No Herniated Disk: Yes Hypertension: Yes Immune Disorder: No Implanted Vascular Access Dvce: No Insomnia: Yes Kidney Stones: No Musculoskeletal: Yes Neurologic: Yes Psychiatric: Yes Reproductive: No Respiratory: Yes Immunizations Current: Yes Migraines: No Myocardial Infarction: Yes (2011) Renal Failure: No Seizures: Yes Sickle Cell Disease: No Sleep Apnea: No Thyroid Disease: No Ulcer: No PNEUMOCCOCAL Vaccine (Year): 2 ?: Not LMP: 02/29/16 Menopausal: Yes : 10 Para: 6 Miscarriage: 3 : 1 Ectopic : Yes (1994) Ovarian Cysts: Yes Dilation and Curettage (D&C): Yes Tubal Ligation: Yes Past Surgical History AICD: No Appendectomy: Yes Arteriovenous Shunt: No Cardiac Surgery: No Coronary Artery Bypass Graft: No Ear Surgery: No Endocrine Surgery: No Eye Surgery: No Genitourinary Surgery: No Gynecologic Surgery: Yes (tubual ligation) Insulin Pump: No Joint Replacement: No Oral Surgery: No Pacemaker: No Thoracic Surgery: No Social History Alcohol Use: No Tobacco Use: Yes (02/24 PPD) Substance Use: Yes (MARIJUANA YESTERDAY. used 03/01/17 IV DRUG USE.) Allergies-Medications (Allergen,Severity, Reaction): Coded Allergies: Sulfa (Sulfonamide Antibiotics) (Unverified Allergy, Severe, Rash, ) magnesium (Unverified Adverse Reaction, Unknown, PRUITIC RASH, 02/08/17) magnesium sulfate (Unverified Adverse Reaction, Unknown, PRUITIC RASH, ) prochlorperazine (Unverified Adverse Reaction, Unknown, ANGINA, 02/08/17) terbutaline (Unverified Adverse Reaction, Unknown, HEART RATE ELEVATES, ) Reported Meds & Prescriptions Reported Meds & Active Scripts Active Vistaril (Hydroxyzine Pamoate) 25 Mg Cap 25 Mg PO TID PRN Klonopin (Clonazepam) 1 Mg Tab 1 Mg PO TID Dicyclomine (Dicyclomine HCl) 20 Mg Tab 20 Mg PO TID PRN 30 Days Vistaril (Hydroxyzine Pamoate) 50 Mg Cap 100 Mg PO BID Reported Clonidine (Clonidine HCl) 0.1 Mg Tab Unknown Dose PO BID Zyprexa (Olanzapine) 20 Mg Tab 20 Mg PO HS Gabapentin 600 Mg Tab 1,200 Mg PO BID Review of Systems Except as stated in HPI: all other systems reviewed are Neg Physical Exam Narrative GENERAL: Well-nourished, well-developed female patient, in no acute distress; crying and tearful SKIN: Warm and dry. HEAD: Atraumatic. Normocephalic. EYES: Pupils equal and round. No scleral icterus. No injection or drainage. ENT: Mucosa pink and moist. Airway patent. NECK: Trachea midline. CARDIOVASCULAR: Regular rate and rhythm. No murmur appreciated. RESPIRATORY: No accessory muscle use. Breath sounds clear and equal throughout. No retractions or tachypnea. GASTROINTESTINAL: Abdomen soft, non-tender, nondistended. Positive bowel sounds. No hepato-splenomegaly, or palpable masses. No guarding. MUSCULOSKELETAL: No obvious deformities. No clubbing. No cyanosis. No edema. NEUROLOGICAL: Awake and alert. Oriented 3. No obvious cranial nerve deficits. Motor grossly within normal limits. Normal speech. PSYCHIATRIC: Appropriate mood and affect; insight and judgment normal. Data Data Last Documented VS Vital Signs Date Time Temp Pulse Resp B/P (MAP) Pulse Ox O2 Delivery O2 Flow Rate FiO2 03/08/17 16:17 98.7 115 18 180/110 (133) 98 Room Air Orders Orders Hydroxyzine Pamoate (Vistaril) (03/08/17 18:15) MDM Medical Decision Making Medical Screen Exam Complete: Yes Emergency Medical Condition: Yes Medical Record Reviewed: Yes Differential Diagnosis Anxiety, benzodiazepine seeking, malingering Narrative Course This is a 47-year-old female who has been seen in the emergency department multiple times. He is requesting something to calm her down. She has history of anxiety and is prescribed Klonopin. She states her fianc took them from her. She is crying and tearful on physical exam. She has history of polysubstance abuse and prescription drug abuse. She was seen February 21 and tested positive for opiates, cocaine, cannabinoids. She reports going to drug rehabilitation and says she has not relapsed since being out of rehabilitation times one week. Her primary care provider is Dr. Bell. She has no emergent medical complaints. I discussed the patient with my attending physician, Dr. Ramirez, and he agrees with my plan of care. Vistaril administered in the ER. Vistaril prescribed for home. Instructed patient to follow up with primary care provider. Patient verbalizes understanding and agreement with treatment plan. Patient is medically cleared and stable for discharge. Discussed reasons to return to the emergency department. Patient agrees with treatment plan. The patients vital signs are stable and the patient is stable for outpatient follow-up and treatment. Patient discharged home, stable and in no acute distress. Diagnosis Primary Impression: Anxiety Referrals: Primary Care Physician Patient Instructions: Anxiety (ED), General Instructions Additional Instructions: Vistaril as prescribed and as needed for anxiety Follow-up with psychiatry Follow-up with primary care provider Med/Other Pt SpecificInfo: Prescription(s) given Scripts Hydroxyzine Pamoate (Vistaril) 25 Mg Cap 25 MG PO TID Y for ANXIETY, #10 CAP 0 Refills Prov: Jordyn Capone 03/08/17 Disposition: 01 DISCHARGE HOME Condition: Stable Jordyn Capone Mar 08, 2017 18:08
[2017-03-08] MEDS ORDERED: hydrOXYzine PAMOATE 25 MG CAP PO ONE (18:15)
[2017-03-08 18:24] VITALS: BP 175/118; PULSE 95; RESP 18; O2SAT 98
== END 2017-03-08 18:31 | disposition home or self-care (01) ==
LOC: NEPD 16:12
DX: F41.9 Anxiety disorder, unspecified (principal); J44.9 Chronic obstructive pulmonary disease, unspecified; F31.9 Bipolar disorder, unspecified; K21.9 Gastro-esophageal reflux disease without esophagitis; I10 Essential (primary) hypertension; I25.2 Old myocardial infarction; R56.9 Unspecified convulsions; Z86.73 Personal history of transient ischemic attack (TIA), and cerebral infarction without residual deficits; Z86.19 Personal history of other infectious and parasitic diseases
CPT/HCPCS: 99283

== ENCOUNTER 2017-03-09 10:44 | Emergency (ER) | payer SELFPAY ==
[~2017-03-09] VITALS: Ht 162.6 cm; Wt 65.0 kg
[~2017-03-09 10:44] MED LIST changes: +VIST25CA PO
[2017-03-09 10:46] VITALS: BP 178/102; PULSE 108; RESP 18; TEMP 98.5; O2SAT 98
--- NOTE | 2017-03-09 11:24 | PD ---
HPI Chief Complaint: Psychiatric Symptoms Time Seen by Provider: 11:07 Travel History International Travel<30 days: No Contact w/Intl Traveler<30days: No Traveled to known affect area: No History of Present Illness HPI This is a 47-year-old female who presents voluntarily requesting psychiatric evaluation. She reports that her father 2 days ago. Since then she has been feeling hopeless, depressed, having passive suicidal thoughts with no formulated plan. She was seen here yesterday and prescribed Vistaril which has not helped. She reports that she is currently a patient at [facility], prescribed Zyprexa, BuSpar as well as Klonopin. She claims that her boyfriend has taken all of her Klonopin and therefore she has run out. She denies any recent illicit drug use. She denies any homicidal ideation, hallucination. She has no medical complaints at this time. PFS Past Medical History Arthritis: No Asthma: Yes Autoimmune Disease: No Blood Disorders: No Bipolar Disorder: Yes Anxiety: Yes Depression: Yes Heart Rhythm Problems: No Cancer: Yes (CERVICAL, needs surgery yet) Cardiac Catheterization: No Cardiovascular Problems: Yes High Cholesterol: No Chest Pain: No Congestive Heart Failure: No COPD: Yes Cerebrovascular Accident: Yes Diabetes: No Diminished Hearing: No Endocrine: No Gastrointestinal Disorders: Yes (COLITIS) GERD: Yes Genitourinary: Yes Headaches: No Hepatitis: Yes (C) Hiatal Hernia: No Heparin Induced Thrombocytopen: No Herniated Disk: Yes Hypertension: No Immune Disorder: No Implanted Vascular Access Dvce: No Insomnia: Yes Kidney Stones: No Musculoskeletal: Yes Neurologic: Yes Psychiatric: Yes Reproductive: No Respiratory: Yes Immunizations Current: Yes Migraines: No Myocardial Infarction: Yes (2011) Renal Failure: No Seizures: Yes Sickle Cell Disease: No Sleep Apnea: No Thyroid Disease: No Ulcer: No PNEUMOCCOCAL Vaccine (Year): 2 ?: Not Menopausal: Yes : 10 Para: 6 Miscarriage: 3 : 1 Ectopic : Yes (1994) Ovarian Cysts: Yes Dilation and Curettage (D&C): Yes Tubal Ligation: Yes Past Surgical History AICD: No Appendectomy: Yes Arteriovenous Shunt: No Cardiac Surgery: No Coronary Artery Bypass Graft: No Ear Surgery: No Endocrine Surgery: No Eye Surgery: No Genitourinary Surgery: No Gynecologic Surgery: Yes (tubual ligation) Insulin Pump: No Joint Replacement: No Oral Surgery: No Pacemaker: No Thoracic Surgery: No Family History Family Myocardial Infarction: No Social History Alcohol Use: No Tobacco Use: Yes (/2 PPD) Substance Use: Yes (MARIJUANA YESTERDAY. used 03/01/17 IV DRUG USE.) Allergies-Medications (Allergen,Severity, Reaction): Coded Allergies: Sulfa (Sulfonamide Antibiotics) (Unverified Allergy, Severe, Rash, ) magnesium (Unverified Adverse Reaction, Unknown, PRUITIC RASH, 02/08/17) magnesium sulfate (Unverified Adverse Reaction, Unknown, PRUITIC RASH, ) prochlorperazine (Unverified Adverse Reaction, Unknown, ANGINA, 02/08/17) terbutaline (Unverified Adverse Reaction, Unknown, HEART RATE ELEVATES, ) Reported Meds & Prescriptions Reported Meds & Active Scripts Active Vistaril (Hydroxyzine Pamoate) 25 Mg Cap 25 Mg PO TID PRN Klonopin (Clonazepam) 1 Mg Tab 1 Mg PO TID Dicyclomine (Dicyclomine HCl) 20 Mg Tab 20 Mg PO TID PRN 30 Days Vistaril (Hydroxyzine Pamoate) 50 Mg Cap 100 Mg PO BID Reported Clonidine (Clonidine HCl) 0.1 Mg Tab Unknown Dose PO BID Zyprexa (Olanzapine) 20 Mg Tab 20 Mg PO HS Gabapentin 600 Mg Tab 1,200 Mg PO BID Review of Systems Except as stated in HPI: all other systems reviewed are Neg Physical Exam Narrative GENERAL: Well-developed well-nourished female who is anxious and tearful. SKIN: Warm and dry. HEAD: Atraumatic. Normocephalic. EYES: Pupils equal and round. No scleral icterus. No injection or drainage. ENT: No nasal bleeding or discharge. Mucous membranes pink and moist. NECK: Trachea midline. No JVD. CARDIOVASCULAR: Regular rate and rhythm. No murmur appreciated. RESPIRATORY: No accessory muscle use. Clear to auscultation. Breath sounds equal bilaterally. GASTROINTESTINAL: Abdomen soft, non-tender, nondistended. Hepatic and splenic margins not palpable. MUSCULOSKELETAL: No obvious deformities. No clubbing. No cyanosis. No edema. NEUROLOGICAL: Awake and alert. No obvious cranial nerve deficits. Motor grossly within normal limits. Normal speech. PSYCHIATRIC: Depressed, anxious, tearful. Data Data Last Documented VS Vital Signs Date Time Temp Pulse Resp B/P (MAP) Pulse Ox O2 Delivery O2 Flow Rate FiO2 03/09/17 17:13 03/09/17 10:46 98.5 108 18 98 Orders Orders Complete Blood Count With Diff (03/09/17 11:21) Comprehensive Metabolic Panel (03/09/17 11:21) Ed Urine Pregnancytest Poc (03/09/17 11:21) Psych Screen (03/09/17 11:21) Drug Screen, Random Urine (03/09/17 11:21) Alcohol (Ethanol) (03/09/17 11:21) Clonazepam (Klonopin) (03/09/17 13:00) Clonazepam (Klonopin) (03/09/17 17:00) Ed Discharge Order (03/09/17 17:06) Labs Laboratory Tests Test 03/09/17 12:00 03/09/17 12:15 White Blood Count 6.4 TH/MM3 Red Blood Count 4.98 MIL/MM3 Hemoglobin 12.5 GM/DL Hematocrit 39.0 % Mean Corpuscular Volume 78.4 FL Mean Corpuscular Hemoglobin 25.0 PG Mean Corpuscular Hemoglobin Concent 31.9 % Red Cell Distribution Width 17.1 % Platelet Count 267 TH/MM3 Mean Platelet Volume 9.0 FL Neutrophils (%) (Auto) 66.3 % Lymphocytes (%) (Auto) 24.7 % Monocytes (%) (Auto) 6.5 % Eosinophils (%) (Auto) 1.6 % Basophils (%) (Auto) 0.9 % Neutrophils # (Auto) 4.3 TH/MM3 Lymphocytes # (Auto) 1.6 TH/MM3 Monocytes # (Auto) 0.4 TH/MM3 Eosinophils # (Auto) 0.1 TH/MM3 Basophils # (Auto) 0.1 TH/MM3 CBC Comment DIFF FINAL Differential Comment Blood Urea Nitrogen 12 MG/DL Creatinine 0.81 MG/DL Random Glucose 122 MG/DL Total Protein 8.6 GM/DL Albumin 3.8 GM/DL Calcium Level 9.1 MG/DL Alkaline Phosphatase 143 U/L Aspartate Amino Transf (AST/SGOT) 26 U/L Alanine Aminotransferase (ALT/SGPT) 32 U/L Total Bilirubin 0.3 MG/DL Sodium Level 139 MEQ/L Potassium Level 4.0 MEQ/L Chloride Level 109 MEQ/L Carbon Dioxide Level 22.8 MEQ/L Anion Gap 7 MEQ/L Estimat Glomerular Filtration Rate 76 ML/MIN Ethyl Alcohol Level LESS THAN 3 MG/DL Urine Opiates Screen POS Urine Barbiturates Screen NEG Urine Amphetamines Screen NEG Urine Benzodiazepines Screen POS Urine Cocaine Screen POS Urine Cannabinoids Screen POS MDM Medical Decision Making Medical Screen Exam Complete: Yes Emergency Medical Condition: Yes Medical Record Reviewed: Yes Differential Diagnosis Grief reaction, just reaction, acute psychosis, major depressive disorder, benzodiazepine withdrawal Narrative Course 47-year-old female presents voluntarily requesting psychiatric evaluation for depression, anxiety, grief, passive suicidal thoughts. Mental health screening discussed with the patient. Psychiatric screen ordered. Lab work is notable for positive opiate, benzodiazepine, cocaine, cannabinoids screening. Diagnosis Primary Impression: Polysubstance abuse Additional Impressions: Anxiety Grief Javier Cooney Mar 09, 2017 11:24
[2017-03-09 12:32] LABS: AUTOMATED NEUTROPHIL # 4.3 TH/MM3 (1.8-7.7); BASOPHIL # 0.1 TH/MM3 (0-0.2); BASOPHIL % 0.9 % (0.0-2.0); EOSINOPHIL # 0.1 TH/MM3 (0-0.4); EOSINOPHIL % 1.6 % (0.0-4.0); HEMOGLOBIN 12.5 GM/DL (11.6-15.3); LYMPH % 24.7 % (9.0-44.0); LYMPHOCYTE # 1.6 TH/MM3 (1.0-4.8); MEAN CELL VOLUME 78.4 FL (80.0-100.0); MEAN CORPUSCULAR HGB CONC 31.9 % (32.0-36.0); MONO % 6.5 % (0.0-8.0); MONOCYTE # 0.4 TH/MM3 (0-0.9); NEUT % 66.3 % (16.0-70.0); PLATELET COUNT 267 TH/MM3 (150-450); RED BLOOD COUNT 4.98 MIL/MM3 (4.00-5.30); RED CELL DISTRIBUTION WIDTH 17.1 % (11.6-17.2); WHITE BLOOD COUNT 6.4 TH/MM3 (4.0-11.0)
[2017-03-09 12:51] LABS: ALBUMIN 3.8 GM/DL (3.4-5.0); ALT (GPT) 32 U/L (10-53); AST (GOT) 26 U/L (15-37); BICARBONATE 22.8 MEQ/L (21.0-32.0); BLOOD UREA NITROGEN 12 MG/DL (7-18); CALCIUM 9.1 MG/DL (8.5-10.1); CHLORIDE 109 MEQ/L (98-107); CREATININE 0.81 MG/DL (0.50-1.00); GLOMERULAR FILTRATION RATE 76 ML/MIN (>89); GLUCOSE,RANDOM 122 MG/DL (74-106); SODIUM (NA) 139 MEQ/L (136-145)
[2017-03-09 12:54] LABS: ALKALINE PHOSPHATASE 143 U/L (45-117); TOTAL BILIRUBIN ADULT 0.3 MG/DL (0.2-1.0); TOTAL PROTEIN 8.6 GM/DL (6.4-8.2)
[2017-03-09] MEDS ORDERED: clonazePAM 1 MG TAB PO ONE ×2 (13:00→17:00)
--- NOTE | 2017-03-09 14:47 | PD ---
Data Data Last Documented VS Vital Signs Date Time Temp Pulse Resp B/P (MAP) Pulse Ox O2 Delivery O2 Flow Rate FiO2 03/09/17 10:46 98.5 108 18 178/102 (127) 98 Orders Orders Complete Blood Count With Diff (03/09/17 11:21) Comprehensive Metabolic Panel (03/09/17 11:21) Ed Urine Pregnancytest Poc (03/09/17 11:21) Psych Screen (03/09/17 11:21) Drug Screen, Random Urine (03/09/17 11:21) Alcohol (Ethanol) (03/09/17 11:21) Clonazepam (Klonopin) (03/09/17 13:00) Labs Laboratory Tests Test 03/09/17 12:00 03/09/17 12:15 White Blood Count 6.4 TH/MM3 Red Blood Count 4.98 MIL/MM3 Hemoglobin 12.5 GM/DL Hematocrit 39.0 % Mean Corpuscular Volume 78.4 FL Mean Corpuscular Hemoglobin 25.0 PG Mean Corpuscular Hemoglobin Concent 31.9 % Red Cell Distribution Width 17.1 % Platelet Count 267 TH/MM3 Mean Platelet Volume 9.0 FL Neutrophils (%) (Auto) 66.3 % Lymphocytes (%) (Auto) 24.7 % Monocytes (%) (Auto) 6.5 % Eosinophils (%) (Auto) 1.6 % Basophils (%) (Auto) 0.9 % Neutrophils # (Auto) 4.3 TH/MM3 Lymphocytes # (Auto) 1.6 TH/MM3 Monocytes # (Auto) 0.4 TH/MM3 Eosinophils # (Auto) 0.1 TH/MM3 Basophils # (Auto) 0.1 TH/MM3 CBC Comment DIFF FINAL Differential Comment Blood Urea Nitrogen 12 MG/DL Creatinine 0.81 MG/DL Random Glucose 122 MG/DL Total Protein 8.6 GM/DL Albumin 3.8 GM/DL Calcium Level 9.1 MG/DL Alkaline Phosphatase 143 U/L Aspartate Amino Transf (AST/SGOT) 26 U/L Alanine Aminotransferase (ALT/SGPT) 32 U/L Total Bilirubin 0.3 MG/DL Sodium Level 139 MEQ/L Potassium Level 4.0 MEQ/L Chloride Level 109 MEQ/L Carbon Dioxide Level 22.8 MEQ/L Anion Gap 7 MEQ/L Estimat Glomerular Filtration Rate 76 ML/MIN Ethyl Alcohol Level LESS THAN 3 MG/DL Urine Opiates Screen POS Urine Barbiturates Screen NEG Urine Amphetamines Screen NEG Urine Benzodiazepines Screen POS Urine Cocaine Screen POS Urine Cannabinoids Screen POS MDM Supervised Visit with SOFIA: Yes Narrative Course The history, exam, and medical decision-making in the associated midlevel provider note were completed with my assistance. I reviewed and agree with the findings presented. I attest that I had a [id number] encounter with the patient on the same day, and personally performed and documented my assessment and findings in the medical record. *My assessment and Findings: This is a patient with a history of mental illness who presents to the emergency department with depression and anxiety. She says her father several days ago and she is having difficulty coping with her grief. She's had some passive suicidal ideation. She feels unstable. I don't think she meets Tierney act criteria at this time but I think she would benefit from psychiatric evaluation as she is depressed mood on exam, poor eye contact and is intermittently tearful. Diagnosis Primary Impression: Polysubstance abuse Additional Impressions: Anxiety Grief Tyra Loving MD Mar 09, 2017 14:47
--- NOTE | 2017-03-09 16:33 | PD ---
History of Present Illness Chief Complaint: Psychiatric Symptoms Time Seen by Provider: 16:30 Travel History International Travel<30 Days: No Contact w/Intl Traveler<30days: No Known affected area: No History of Present Illness: 47-year-old female, drug seeking, willing to go back to [facility] for detox and rehabilitation if this physician prescribes 1 mg of Klonopin by mouth. This physician is aware the patient had Klonopin approximately 4 hours ago. However, if this treatment allows patient to voluntarily go to [facility] for detox and rehabilitation, this physician finds it an acceptable verbal contract. Patient denies suicidal or homicidal ideation, plan or intent. She has no psychotic symptoms and her cognition is intact. She is noted to have been at [facility] for detox and rehabilitation until 2 weeks ago. Once released, she was apparently using crack cocaine and cannabis. PFSH Past Medical History Arthritis: No Asthma: Yes Autoimmune Disease: No Blood Disorders: No Bipolar Disorder: Yes Anxiety: Yes Depression: Yes Heart Rhythm Problems: No Cancer: Yes (CERVICAL, needs surgery yet) Cardiac Catheterization: No Cardiovascular Problems: Yes High Cholesterol: No Chest Pain: No Congestive Heart Failure: No COPD: Yes Cerebrovascular Accident: Yes Diabetes: No Diminished Hearing: No Endocrine: No Gastrointestinal Disorders: Yes (COLITIS) GERD: Yes Genitourinary: Yes Headaches: No Hepatitis: Yes (C) Hiatal Hernia: No Heparin Induced Thrombocytopen: No Herniated Disk: Yes Hypertension: No Immune Disorder: No Implanted Vascular Access Dvce: No Insomnia: Yes Kidney Stones: No Musculoskeletal: Yes Neurologic: Yes Psychiatric: Yes Reproductive: No Respiratory: Yes Immunizations Current: Yes Migraines: No Myocardial Infarction: Yes (2011) Renal Failure: No Seizures: Yes Sickle Cell Disease: No Sleep Apnea: No Thyroid Disease: No Ulcer: No PNEUMOCCOCAL Vaccine (Year): 2 ?: Not Menopausal: Yes : 10 Para: 6 Miscarriage: 3 : 1 Ectopic : Yes (1994) Ovarian Cysts: Yes Dilation and Curettage (D&C): Yes Tubal Ligation: Yes Past Surgical History AICD: No Appendectomy: Yes Arteriovenous Shunt: No Cardiac Surgery: No Coronary Artery Bypass Graft: No Ear Surgery: No Endocrine Surgery: No Eye Surgery: No Genitourinary Surgery: No Gynecologic Surgery: Yes (tubual ligation) Insulin Pump: No Joint Replacement: No Oral Surgery: No Pacemaker: No Thoracic Surgery: No Psychiatric History Psychiatric History Hx Psychiatric Treatment: PT REPORTS HX OF INPATIENT AT [facility] , HX OF BIPOLAR DISORDER AND PSA. This physician sees no significant clinically objective evidence of bipolar disorder or anything other than drug abuse. History of Inpatient Treatment: Yes Guns or firearms in home: No Social History Hx Alcohol Use: No Hx Tobacco Use: Yes (02/24 PPD) Hx Substance Use: Yes (MARIJUANA YESTERDAY. used 03/01/17 IV DRUG USE.) Substance Use Type: Prescription Medications, Synth Opiates-Pain Pills Hx of Substance Use Treatment: Yes Allergies-Medications (Allergen,Severity, Reaction): Coded Allergies: Sulfa (Sulfonamide Antibiotics) (Unverified Allergy, Severe, Rash, ) magnesium (Unverified Adverse Reaction, Unknown, PRUITIC RASH, 02/08/17) magnesium sulfate (Unverified Adverse Reaction, Unknown, PRUITIC RASH, ) prochlorperazine (Unverified Adverse Reaction, Unknown, ANGINA, 02/08/17) terbutaline (Unverified Adverse Reaction, Unknown, HEART RATE ELEVATES, ) Reported Meds & Prescriptions Reported Meds & Active Scripts Active Vistaril (Hydroxyzine Pamoate) 25 Mg Cap 25 Mg PO TID PRN Klonopin (Clonazepam) 1 Mg Tab 1 Mg PO TID Dicyclomine (Dicyclomine HCl) 20 Mg Tab 20 Mg PO TID PRN 30 Days Vistaril (Hydroxyzine Pamoate) 50 Mg Cap 100 Mg PO BID Reported Clonidine (Clonidine HCl) 0.1 Mg Tab Unknown Dose PO BID Zyprexa (Olanzapine) 20 Mg Tab 20 Mg PO HS Gabapentin 600 Mg Tab 1,200 Mg PO BID Review of Systems Psychiatric: COMPLAINS OF: Anxiety Except as stated in HPI: all other systems reviewed are Neg Mental Status Examination Appearance: Appropriate Consciousness: Alert Orientation: x4 Motor Activity: Normal gait Speech: Unremarkable Language: Adequate Fund of Knowledge: Adequate Attention and Concentration: Adequate Memory: Unremarkable Mood: Anxious Affect: Anxious Thought Process & Associations: Intact Thought Content: Appropriate Hallucination Type: None Delusion Type: None Suicidal Ideation: No Suicidal Plan: No Suicidal Intention: No Homicidal Ideation: No Homicidal Plan: No Homicidal Intention: No Insight: Adequate Judgment: Adequate MDM Medical Decision Making Medical Record Reviewed: Yes Assessment/Plan Patient interviewed at bedside. Electronic medical record reviewed. Case discussed with nurse Maldonado and caustic strength inspector Sebastian. Patient is being given bus passes to get to [facility]. 1 mg of Klonopin ordered per hour verbal contract. Patient cleared for discharge from psychiatric standpoint. Orders Orders Complete Blood Count With Diff (03/09/17 11:21) Comprehensive Metabolic Panel (03/09/17 11:21) Ed Urine Pregnancytest Poc (03/09/17 11:21) Psych Screen (03/09/17 11:21) Drug Screen, Random Urine (03/09/17 11:21) Alcohol (Ethanol) (03/09/17 11:21) Clonazepam (Klonopin) (03/09/17 13:00) Clonazepam (Klonopin) (03/09/17 16:30) Results Vital Signs Date Time Temp Pulse Resp B/P (MAP) Pulse Ox O2 Delivery O2 Flow Rate FiO2 03/09/17 10:46 98.5 108 18 178/102 (127) 98 Laboratory Tests Test 03/09/17 12:00 03/09/17 12:15 White Blood Count 6.4 Red Blood Count 4.98 Hemoglobin 12.5 Hematocrit 39.0 Mean Corpuscular Volume 78.4 Mean Corpuscular Hemoglobin 25.0 Mean Corpuscular Hemoglobin Concent 31.9 Red Cell Distribution Width 17.1 Platelet Count 267 Mean Platelet Volume 9.0 Neutrophils (%) (Auto) 66.3 Lymphocytes (%) (Auto) 24.7 Monocytes (%) (Auto) 6.5 Eosinophils (%) (Auto) 1.6 Basophils (%) (Auto) 0.9 Neutrophils # (Auto) 4.3 Lymphocytes # (Auto) 1.6 Monocytes # (Auto) 0.4 Eosinophils # (Auto) 0.1 Basophils # (Auto) 0.1 CBC Comment DIFF FINAL Differential Comment Blood Urea Nitrogen 12 Creatinine 0.81 Random Glucose 122 Total Protein 8.6 Albumin 3.8 Calcium Level 9.1 Alkaline Phosphatase 143 Aspartate Amino Transf (AST/SGOT) 26 Alanine Aminotransferase (ALT/SGPT) 32 Total Bilirubin 0.3 Sodium Level 139 Potassium Level 4.0 Chloride Level 109 Carbon Dioxide Level 22.8 Anion Gap 7 Estimat Glomerular Filtration Rate 76 Ethyl Alcohol Level LESS THAN 3 Urine Opiates Screen POS Urine Barbiturates Screen NEG Urine Amphetamines Screen NEG Urine Benzodiazepines Screen POS Urine Cocaine Screen POS Urine Cannabinoids Screen POS Diagnosis Primary Impression: Cocaine abuse Cornel Wilde MD Mar 09, 2017 16:33
--- NOTE | 2017-03-09 17:06 | PD ---
Data Data Last Documented VS Vital Signs Date Time Temp Pulse Resp B/P (MAP) Pulse Ox O2 Delivery O2 Flow Rate FiO2 03/09/17 10:46 98.5 108 18 178/102 (127) 98 Orders Orders Complete Blood Count With Diff (03/09/17 11:21) Comprehensive Metabolic Panel (03/09/17 11:21) Ed Urine Pregnancytest Poc (03/09/17 11:21) Psych Screen (03/09/17 11:21) Drug Screen, Random Urine (03/09/17 11:21) Alcohol (Ethanol) (03/09/17 11:21) Clonazepam (Klonopin) (03/09/17 13:00) Clonazepam (Klonopin) (03/09/17 17:00) Labs Laboratory Tests Test 03/09/17 12:00 03/09/17 12:15 White Blood Count 6.4 TH/MM3 Red Blood Count 4.98 MIL/MM3 Hemoglobin 12.5 GM/DL Hematocrit 39.0 % Mean Corpuscular Volume 78.4 FL Mean Corpuscular Hemoglobin 25.0 PG Mean Corpuscular Hemoglobin Concent 31.9 % Red Cell Distribution Width 17.1 % Platelet Count 267 TH/MM3 Mean Platelet Volume 9.0 FL Neutrophils (%) (Auto) 66.3 % Lymphocytes (%) (Auto) 24.7 % Monocytes (%) (Auto) 6.5 % Eosinophils (%) (Auto) 1.6 % Basophils (%) (Auto) 0.9 % Neutrophils # (Auto) 4.3 TH/MM3 Lymphocytes # (Auto) 1.6 TH/MM3 Monocytes # (Auto) 0.4 TH/MM3 Eosinophils # (Auto) 0.1 TH/MM3 Basophils # (Auto) 0.1 TH/MM3 CBC Comment DIFF FINAL Differential Comment Blood Urea Nitrogen 12 MG/DL Creatinine 0.81 MG/DL Random Glucose 122 MG/DL Total Protein 8.6 GM/DL Albumin 3.8 GM/DL Calcium Level 9.1 MG/DL Alkaline Phosphatase 143 U/L Aspartate Amino Transf (AST/SGOT) 26 U/L Alanine Aminotransferase (ALT/SGPT) 32 U/L Total Bilirubin 0.3 MG/DL Sodium Level 139 MEQ/L Potassium Level 4.0 MEQ/L Chloride Level 109 MEQ/L Carbon Dioxide Level 22.8 MEQ/L Anion Gap 7 MEQ/L Estimat Glomerular Filtration Rate 76 ML/MIN Ethyl Alcohol Level LESS THAN 3 MG/DL Urine Opiates Screen POS Urine Barbiturates Screen NEG Urine Amphetamines Screen NEG Urine Benzodiazepines Screen POS Urine Cocaine Screen POS Urine Cannabinoids Screen POS MDM Supervised Visit with [facility]: Yes Narrative Course Patient has been seen by psychiatry who recommended the patient be seen at [facility] for possible detox. He feels the patient is safe and I agree and I think most of her presentation is substance related. Patient will be discharged. Diagnosis Primary Impression: Cocaine abuse Patient Instructions: General Instructions Additional Instruction: If you have thoughts of hurting herself or others return to the emergency department immediately. Follow up with [facility] in regards to psychiatric or substance related issues at: [address] [place], [place] [id number] Med/Other Pt SpecificInfo: No Change to Meds Disposition: 01 DISCHARGE HOME Condition: Stable Tyra Loving MD Mar 09, 2017 17:06
== END 2017-03-09 17:15 | disposition home or self-care (01) ==
LOC: NEPD 10:44
DX: F19.10 Other psychoactive substance abuse, uncomplicated (principal); F14.10 Cocaine abuse, uncomplicated; J44.9 Chronic obstructive pulmonary disease, unspecified; I25.2 Old myocardial infarction; F17.210 Nicotine dependence, cigarettes, uncomplicated; F12.90 Cannabis use, unspecified, uncomplicated
CPT/HCPCS: 80053; 80307; 84703; 85025; 99283

== ENCOUNTER 2017-03-22 11:10 | Emergency (ER) | payer SELFPAY ==
[2017-03-22 11:25] VITALS: BP 137/97; PULSE 93; RESP 16; TEMP 98.7; O2SAT 97
[2017-03-22 12:55] LABS: AUTOMATED NEUTROPHIL # 5.6 TH/MM3 (1.8-7.7); BASOPHIL # 0.1 TH/MM3 (0-0.2); BASOPHIL % 0.8 % (0.0-2.0); EOSINOPHIL % 0.3 % (0.0-4.0); HEMATOCRIT 40.1 % (35.0-46.0); HEMOGLOBIN 13.2 GM/DL (11.6-15.3); LYMPH % 25.2 % (9.0-44.0); MEAN CORPUSCULAR HEMOGLOBIN 25.9 PG (27.0-34.0); MEAN CORPUSCULAR HGB CONC 32.8 % (32.0-36.0); MEAN PLATELET VOLUME 9.9 FL (7.0-11.0); MONO % 3.9 % (0.0-8.0); MONOCYTE # 0.3 TH/MM3 (0-0.9); NEUT % 69.8 % (16.0-70.0); PLATELET COUNT 269 TH/MM3 (150-450); RED BLOOD COUNT 5.08 MIL/MM3 (4.00-5.30); RED CELL DISTRIBUTION WIDTH 16.8 % (11.6-17.2); WHITE BLOOD COUNT 8.1 TH/MM3 (4.0-11.0)
--- NOTE | 2017-03-22 13:09 | RADRPT ---
EXAM DATE/TIME: 03/22/2017 12:57 [facility] COMPARISON: CHEST SINGLE AP, October 18, 2016, 21:27. INDICATIONS : Midchest pain. Shortness of breath. MEDICAL HISTORY : Chronic obstructive pulmonary disease. Asthma. SURGICAL HISTORY : None. ENCOUNTER: Initial ACUITY: 1 day PAIN SCORE: 10/10 LOCATION: Bilateral chest FINDINGS: Single AP view of the chest. The lungs are clear. Cardiomediastinal silhouette within normal limits. No evidence of pleural effusion or pneumothorax. CONCLUSION: No acute cardiopulmonary disease identified. Aneesh Hickman MD on March 22, 2017 at 13:05 Board Certified Radiologist. This report was verified electronically.
[2017-03-22 13:21] LABS: ALKALINE PHOSPHATASE 141 U/L (45-117); TOTAL BILIRUBIN ADULT 0.3 MG/DL (0.2-1.0); TOTAL PROTEIN 8.6 GM/DL (6.4-8.2)
[2017-03-22 13:23] LABS: ALBUMIN 4.1 GM/DL (3.4-5.0); ALT (GPT) 21 U/L (10-53); AST (GOT) 23 U/L (15-37); BICARBONATE 26.8 MEQ/L (21.0-32.0); BLOOD UREA NITROGEN 11 MG/DL (7-18); CALCIUM 9.9 MG/DL (8.5-10.1); CHLORIDE 107 MEQ/L (98-107); CREATININE 0.84 MG/DL (0.50-1.00); GLOMERULAR FILTRATION RATE 73 ML/MIN (>89); GLUCOSE,RANDOM 101 MG/DL (74-106); LIPASE 70 U/L (73-393); SODIUM (NA) 141 MEQ/L (136-145)
[2017-03-22] MEDS ORDERED: VIST25CA PO (13:38)
--- NOTE | 2017-03-22 13:38 | PD ---
HPI Chief Complaint: Abdominal Pain Time Seen by Provider: 13:05 Travel History International Travel<30 days: No Contact w/Intl Traveler<30days: No Traveled to known affect area: No History of Present Illness HPI 47-year-old female complains of palpitation and anxiety. Patient states that she smoked some weed last night probably was laced with cocaine. Patient states that she has anxiety and palpitations since last night. Patient has history of anxiety and on Klonopin in the past. Patient also has history of substance abuse in the past. Patient denies any headache. Patient denies any chest pain or shortness of breath. Patient states that she has intermittent abdominal cramping with nausea and does not new. Patient denies any focal weakness or numbness of extremity. PFSH Past Medical History Arthritis: No Asthma: Yes Autoimmune Disease: No Blood Disorders: No Bipolar Disorder: Yes Anxiety: Yes Depression: Yes Heart Rhythm Problems: No Cancer: Yes (CERVICAL, needs surgery yet) Cardiac Catheterization: No Cardiovascular Problems: Yes High Cholesterol: No Chest Pain: No Congestive Heart Failure: No COPD: Yes Cerebrovascular Accident: Yes Diabetes: No Diminished Hearing: No Endocrine: No Gastrointestinal Disorders: Yes (COLITIS) GERD: Yes Genitourinary: Yes Headaches: No Hepatitis: Yes (C) Hiatal Hernia: No Heparin Induced Thrombocytopen: No Herniated Disk: Yes Hypertension: No Immune Disorder: No Implanted Vascular Access Dvce: No Insomnia: Yes Kidney Stones: No Musculoskeletal: Yes Neurologic: Yes Psychiatric: Yes Reproductive: No Respiratory: Yes Immunizations Current: Yes Migraines: No Myocardial Infarction: Yes (2011) Renal Failure: No Seizures: Yes Sickle Cell Disease: No Sleep Apnea: No Thyroid Disease: No Ulcer: No PNEUMOCCOCAL Vaccine (Year): 2 ?: Unknown Menopausal: Yes : 10 Para: 6 Miscarriage: 3 : 1 Ectopic : Yes (1994) Ovarian Cysts: Yes Dilation and Curettage (D&C): Yes Tubal Ligation: Yes Past Surgical History AICD: No Appendectomy: Yes Arteriovenous Shunt: No Cardiac Surgery: No Coronary Artery Bypass Graft: No Ear Surgery: No Endocrine Surgery: No Eye Surgery: No Genitourinary Surgery: No Gynecologic Surgery: Yes (tubual ligation) Insulin Pump: No Joint Replacement: No Oral Surgery: No Pacemaker: No Thoracic Surgery: No Social History Alcohol Use: No Tobacco Use: Yes (1/2 PPD) Substance Use: Yes Allergies-Medications (Allergen,Severity, Reaction): Coded Allergies: Sulfa (Sulfonamide Antibiotics) (Verified Allergy, Severe, Rash, 03/22/17) magnesium (Verified Adverse Reaction, Unknown, PRUITIC RASH, 03/22/17) magnesium sulfate (Verified Adverse Reaction, Unknown, PRUITIC RASH, ) prochlorperazine (Verified Adverse Reaction, Unknown, ANGINA, 03/22/17) terbutaline (Verified Adverse Reaction, Unknown, HEART RATE ELEVATES, 03/22) Reported Meds & Prescriptions Reported Meds & Active Scripts Active Vistaril (Hydroxyzine Pamoate) 25 Mg Cap 25 Mg PO TID PRN Vistaril (Hydroxyzine Pamoate) 25 Mg Cap 25 Mg PO TID PRN Klonopin (Clonazepam) 1 Mg Tab 1 Mg PO TID Dicyclomine (Dicyclomine HCl) 20 Mg Tab 20 Mg PO TID PRN 30 Days Vistaril (Hydroxyzine Pamoate) 50 Mg Cap 100 Mg PO BID Reported Clonidine (Clonidine HCl) 0.1 Mg Tab Unknown Dose PO BID Zyprexa (Olanzapine) 20 Mg Tab 20 Mg PO HS Gabapentin 600 Mg Tab 1,200 Mg PO BID Review of Systems General / Constitutional: No: Fever Eyes: No: Visual changes HENT: No: Headaches Cardiovascular: Positive: Palpitations, No: Chest Pain or Discomfort Respiratory: No: Shortness of Breath Gastrointestinal: No: Abdominal Pain Genitourinary: No: Dysuria Musculoskeletal: No: Pain Skin: No Rash Neurologic: No: Weakness Psychiatric: No: Depression Endocrine: No: Polydipsia Hematologic/Lymphatic: No: Easy Bruising Physical Exam Narrative GENERAL: Well-nourished, well-developed patient. SKIN: Focused skin assessment warm/dry. HEAD: Normocephalic. EYES: No scleral icterus. No injection or drainage. NECK: Supple, trachea midline. No JVD or lymphadenopathy. CARDIOVASCULAR: Regular rate and rhythm without murmurs, gallops, or rubs. RESPIRATORY: Breath sounds equal bilaterally. No accessory muscle use. GASTROINTESTINAL: Abdomen soft, non-tender, nondistended. MUSCULOSKELETAL: No cyanosis, or edema. BACK: Nontender without obvious deformity. No CVA tenderness. Neurologic exam normal. Data Data Last Documented VS Vital Signs Date Time Temp Pulse Resp B/P (MAP) Pulse Ox O2 Delivery O2 Flow Rate FiO2 03/22/17 11:25 98.7 93 16 137/97 (110) 97 Orders Orders Complete Blood Count With Diff (03/22/17 12:08) Comprehensive Metabolic Panel (03/22/17 12:08) Ed Urine Pregnancytest Poc (03/22/17 12:08) Iv Access Insert/Monitor (03/22/17 12:08) Lipase (03/22/17 12:08) Electrocardiogram (03/22/17 12:22) Troponin I (03/22/17 12:22) Chest, Single Ap (03/22/17 12:22) Hydroxyzine Hcl Inj (Vistaril Inj) (03/22/17 13:30) Labs Laboratory Tests Test 03/22/17 12:30 White Blood Count 8.1 TH/MM3 Red Blood Count 5.08 MIL/MM3 Hemoglobin 13.2 GM/DL Hematocrit 40.1 % Mean Corpuscular Volume 79.0 FL Mean Corpuscular Hemoglobin 25.9 PG Mean Corpuscular Hemoglobin Concent 32.8 % Red Cell Distribution Width 16.8 % Platelet Count 269 TH/MM3 Mean Platelet Volume 9.9 FL Neutrophils (%) (Auto) 69.8 % Lymphocytes (%) (Auto) 25.2 % Monocytes (%) (Auto) 3.9 % Eosinophils (%) (Auto) 0.3 % Basophils (%) (Auto) 0.8 % Neutrophils # (Auto) 5.6 TH/MM3 Lymphocytes # (Auto) 2.0 TH/MM3 Monocytes # (Auto) 0.3 TH/MM3 Eosinophils # (Auto) 0.0 TH/MM3 Basophils # (Auto) 0.1 TH/MM3 CBC Comment DIFF FINAL Differential Comment Blood Urea Nitrogen 11 MG/DL Creatinine 0.84 MG/DL Random Glucose 101 MG/DL Total Protein 8.6 GM/DL Albumin 4.1 GM/DL Calcium Level 9.9 MG/DL Alkaline Phosphatase 141 U/L Aspartate Amino Transf (AST/SGOT) 23 U/L Alanine Aminotransferase (ALT/SGPT) 21 U/L Total Bilirubin 0.3 MG/DL Sodium Level 141 MEQ/L Potassium Level 3.7 MEQ/L Chloride Level 107 MEQ/L Carbon Dioxide Level 26.8 MEQ/L Anion Gap 7 MEQ/L Estimat Glomerular Filtration Rate 73 ML/MIN Troponin I LESS THAN 0.02 NG/ML Lipase 70 U/L MDM Medical Decision Making Medical Screen Exam Complete: Yes Emergency Medical Condition: Yes Differential Diagnosis Differential diagnosis including arrhythmia, substance abuse, anxiety. Narrative Course 47-year-old female with complains of palpitation. History of substance abuse. Patient smokes weed last night probably laced with cocaine. Patient afebrile, vital signs stable. EKG shows sinus rhythm nonspecific ST-T wave change. Blood tests normal. Vistaril 25 mg IM given. Diagnosis Primary Impression: Cardiac arrhythmia Qualified Codes: I49.9 - Cardiac arrhythmia, unspecified Additional Impressions: Anxiety Substance abuse Patient Instructions: General Instructions Additional Instructions: Vistaril as needed. Follow-up with personal physician. Return if worse. Advised [facility]. Med/Other Pt SpecificInfo: Prescription(s) given Scripts Hydroxyzine Pamoate (Vistaril) 25 Mg Cap 25 MG PO TID Y for ANXIETY, #30 CAP 0 Refills Prov: Amado Peralta MD 03/22/17 Disposition: 01 DISCHARGE HOME Condition: Stable Amado Peralta MD Mar 22, 2017 13:38
--- NOTE | 2017-03-23 18:31 | EKG ---
Date Performed: 03/22/2017 Time Performed: 13:21:07 PTAGE: 47 years EKG: Sinus rhythm POSSIBLE LEFT ATRIAL ENLARGEMENT POSSIBLE LEFT VENTRICULAR HYPERTROPHY Consider POSSIBLE ANTEROSEPTA L MYOCARDIAL INFARCTION-age Undeterminate. ABNORMAL ECG PREVIOUS TRACING : 12/08/2016 00.56 DOCTOR: Gonsalo Self Interpretating Date/Time 03/23/2017 18:30:20
== END 2017-03-22 13:59 | disposition home or self-care (01) ==
LOC: NEDAMB 11:10 → NEPD 13:59
DX: I49.9 Cardiac arrhythmia, unspecified (principal); F41.9 Anxiety disorder, unspecified; F19.10 Other psychoactive substance abuse, uncomplicated; F17.200 Nicotine dependence, unspecified, uncomplicated
CPT/HCPCS: 71045; 80053; 83690; 84484; 84703; 85025; 93005; 96372; 99285; J3410

== ENCOUNTER 2017-05-06 14:26 | Emergency (ER) | payer SELFPAY ==
[~2017-05-06] VITALS: Ht 162.6 cm; Wt 65.0 kg
[2017-05-06 14:57] VITALS: BP 162/69; PULSE 99; RESP 16; TEMP 98.9; O2SAT 100
[2017-05-06] MEDS ORDERED: CLINDAMYCIN PHOS 600 MG/4 ML VIAL IM ONE (15:30)
[2017-05-06] MEDS ORDERED: DOXYCYCLINE HYCLATE 100 MG CAP PO ONE (15:30)
[2017-05-06] MEDS ORDERED: DOXY100C PO (15:45)
[2017-05-06] MEDS ORDERED: TRAM50 PO (15:45)
[2017-05-06] MEDS ORDERED: IBUP-232 PO (15:45)
[2017-05-06] MEDS ORDERED: CLIN150C14 PO (15:45)
--- NOTE | 2017-05-06 15:45 | PD ---
HPI Chief Complaint: Skin Problem Time Seen by Provider: 15:02 Travel History International Travel<30 days: No Contact w/Intl Traveler<30days: No Traveled to known affect area: No History of Present Illness HPI 47-year-old female complains of painful lumps on both axillas. Patient states the symptoms started several days ago. Patient states that she has low-grade fever at home. Patient stated the pain is severe pain localized with axial area. Patient denies any pain radiation. On a scale of 1-10 the pain is a 10. PFSH Past Medical History Arthritis: No Asthma: Yes Autoimmune Disease: No Blood Disorders: No Bipolar Disorder: Yes Anxiety: Yes Depression: Yes Heart Rhythm Problems: No Cancer: Yes (CERVICAL, needs surgery yet) Cardiac Catheterization: No Cardiovascular Problems: Yes High Cholesterol: No Chest Pain: No Congestive Heart Failure: No COPD: Yes Cerebrovascular Accident: Yes Diabetes: No Diminished Hearing: No Endocrine: No Gastrointestinal Disorders: Yes (COLITIS) GERD: Yes Genitourinary: Yes Headaches: No Hepatitis: Yes (C) Hiatal Hernia: No Heparin Induced Thrombocytopen: No Herniated Disk: Yes Hypertension: No Immune Disorder: No Implanted Vascular Access Dvce: No Insomnia: Yes Kidney Stones: No Musculoskeletal: Yes Neurologic: Yes Psychiatric: Yes Reproductive: No Respiratory: Yes Immunizations Current: Yes Migraines: No Myocardial Infarction: Yes (2011) Renal Failure: No Seizures: Yes Sickle Cell Disease: No Sleep Apnea: No Thyroid Disease: No Ulcer: No Tetanus Vaccination: < 5 Years Influenza Vaccination: No PNEUMOCCOCAL Vaccine (Year): 2 ?: Not Menopausal: Yes : 10 Para: 6 Miscarriage: 3 : 1 Ectopic : Yes (1994) Ovarian Cysts: Yes Dilation and Curettage (D&C): Yes Tubal Ligation: Yes Past Surgical History AICD: No Appendectomy: Yes Arteriovenous Shunt: No Cardiac Surgery: No Coronary Artery Bypass Graft: No Ear Surgery: No Endocrine Surgery: No Eye Surgery: No Genitourinary Surgery: No Gynecologic Surgery: Yes (tubual ligation) Insulin Pump: No Joint Replacement: No Oral Surgery: No Pacemaker: No Thoracic Surgery: No Social History Alcohol Use: No Tobacco Use: Yes (02/24 PPD) Substance Use: No (denies) Allergies-Medications (Allergen,Severity, Reaction): Coded Allergies: Sulfa (Sulfonamide Antibiotics) (Verified Allergy, Severe, Rash, 05/06/17) magnesium (Verified Adverse Reaction, Unknown, PRUITIC RASH, 05/06/17) magnesium sulfate (Verified Adverse Reaction, Unknown, PRUITIC RASH, ) prochlorperazine (Verified Adverse Reaction, Unknown, ANGINA, 05/06/17) terbutaline (Verified Adverse Reaction, Unknown, HEART RATE ELEVATES, 05/06) Reported Meds & Prescriptions Reported Meds & Active Scripts Active Klonopin (Clonazepam) 1 Mg Tab 1 Mg PO TID Dicyclomine (Dicyclomine HCl) 20 Mg Tab 20 Mg PO TID PRN 30 Days Vistaril (Hydroxyzine Pamoate) 50 Mg Cap 100 Mg PO BID Reported Clonidine (Clonidine HCl) 0.1 Mg Tab Unknown Dose PO BID Zyprexa (Olanzapine) 20 Mg Tab 20 Mg PO HS Gabapentin 600 Mg Tab 1,200 Mg PO BID Review of Systems General / Constitutional: No: Fever Eyes: No: Visual changes HENT: No: Headaches Cardiovascular: No: Chest Pain or Discomfort Respiratory: No: Shortness of Breath Gastrointestinal: No: Abdominal Pain Genitourinary: No: Dysuria Musculoskeletal: No: Pain Skin: No Rash Neurologic: No: Weakness Psychiatric: No: Depression Endocrine: No: Polydipsia Hematologic/Lymphatic: No: Easy Bruising Physical Exam Narrative GENERAL: Well-nourished, well-developed patient. SKIN: Focused skin assessment warm/dry. HEAD: Normocephalic. EYES: No scleral icterus. No injection or drainage. NECK: Supple, trachea midline. No JVD or lymphadenopathy. CARDIOVASCULAR: Regular rate and rhythm without murmurs, gallops, or rubs. RESPIRATORY: Breath sounds equal bilaterally. No accessory muscle use. GASTROINTESTINAL: Abdomen soft, non-tender, nondistended. MUSCULOSKELETAL: Patient has multiple nodular painful lesions on her left axilla. Patient has multiple nodular lesions on the right axilla with soft tissue swelling tenderness. No induration. No discharge. BACK: Nontender without obvious deformity. No CVA tenderness. Neurologic exam: Normal. Data Data Last Documented VS Vital Signs Date Time Temp Pulse Resp B/P (MAP) Pulse Ox O2 Delivery O2 Flow Rate FiO2 05/06/17 14:57 98.9 99 16 162/69 (100) 100 Orders Orders Clindamycin Inj (Cleocin Inj) (05/06/17 15:30) Doxycycline (Vibramycin) (05/06/17 15:30) [facility] Medical Decision Making Medical Screen Exam Complete: Yes Emergency Medical Condition: Yes Differential Diagnosis Differential diagnoses including folliculitis, cellulitis, abscess. Narrative Course 47-year-old female with painful lesions on both axilla. Clindamycin 600 mg IM. Doxycycline 100 mg p.o. Procedures Procedure Narrative 1% lidocaine local anesthesia. Betadine wash. Small incision was made with # 11 scalpel. No pus obtained. Small amount of bloody discharge noted. Dressing applied. Diagnosis Primary Impression: Hidradenitis axillaris Patient Instructions: General Instructions Additional Instructions: Wound care daily. Take antibiotic as directed. Return in 2 days for recheck. Med/Other Pt SpecificInfo: Prescription(s) given Scripts Tramadol (Ultram) 50 Mg Tab 50 MG PO Q6H Y for PAIN, #20 TAB 0 Refills Prov: Amado Peralta MD 05/06/17 Ibuprofen (Ibuprofen) 600 Mg Tab 600 MG PO TID for Pain, #60 TAB 0 Refills Prov: Amado Peralta MD 05/06/17 Doxycycline Hyclate (Doxycycline Hyclate) 100 Mg Cap 100 MG PO BID for Infection, #20 CAP 0 Refills Prov: Amado Peralta MD 05/06/17 Clindamycin (Clindamycin) 150 Mg Cap 300 MG PO QID for Infection, #80 CAP 0 Refills Prov: Amado Peralta MD 05/06/17 Disposition: 01 DISCHARGE HOME Condition: Stable Amado Peralta MD May 06, 2017 15:45
== END 2017-05-06 16:36 | disposition home or self-care (01) ==
LOC: NEPE 14:26
DX: L73.2 Hidradenitis suppurativa (principal); F31.9 Bipolar disorder, unspecified; C53.9 Malignant neoplasm of cervix uteri, unspecified; J44.9 Chronic obstructive pulmonary disease, unspecified; B19.20 Unspecified viral hepatitis C without hepatic coma; I25.2 Old myocardial infarction; F17.210 Nicotine dependence, cigarettes, uncomplicated; Z86.73 Personal history of transient ischemic attack (TIA), and cerebral infarction without residual deficits; Z88.2 Allergy status to sulfonamides; Z88.8 Allergy status to other drugs, medicaments and biological substances
CPT/HCPCS: 10060; 96372

== ENCOUNTER 2017-05-07 16:01 | Emergency (ER) | payer SELFPAY ==
[~2017-05-07] VITALS: Ht 162.6 cm; Wt 65.0 kg
[~2017-05-07 16:01] MED LIST changes: +CLIN150C14 PO; +DOXY100C PO; +IBUP-232 PO; +TRAM50 PO; -VIST25CA PO
[2017-05-07 16:22] VITALS: BP 123/60; PULSE 83; RESP 16; TEMP 98.2; O2SAT 99
[2017-05-07] MEDS ORDERED: DALBAVANCIN INJ 1,500 MG in DEXTROSE 5% IN WATE 500 ML INJ 500 ML IV STA ×2 (16:55)
[2017-05-07] MEDS ORDERED: ONDANSETRON HCL 4 MG/2 ML VIAL IV PUSH ONE (17:00)
[2017-05-07] MEDS ORDERED: SODIUM CHLORIDE 0.9% FLUSH 10 ML FLUSH IV FLUSH PRN (17:00)
[2017-05-07] MEDS ORDERED: MISCELLANEOUS PHARMACY INFORMATION XX ONE ×2 (17:00)
[2017-05-07] MEDS ORDERED: KETOROLAC TROMETHAMINE 30 MG/ML (IVP) VIAL IVP ONE (17:00)
--- NOTE | 2017-05-07 17:00 | PD ---
HPI Chief Complaint: Medical Clearance Time Seen by Provider: 16:41 Travel History International Travel<30 days: No Contact w/Intl Traveler<30days: No Traveled to known affect area: No History of Present Illness HPI Patient comes emergency department complaining of continued pain and inflammation right axilla. Patient reports she was seen here yesterday had an I &D performed and was placed on antibiotics as well as pain medication. Patient states that she was unable to afford the medication and has not took anything. Patient feels the pain got worse overnight causing her come back to the emergency department. Patient reports subjective fevers with this. Describes pain as a throbbing pain in her right axilla without radiation. Touching it makes the pain worse. Denies anything making it better. Severity moderate. PFSH Past Medical History Arthritis: No Asthma: Yes Autoimmune Disease: No Blood Disorders: No Bipolar Disorder: Yes Anxiety: Yes Depression: Yes Heart Rhythm Problems: No Cancer: Yes (CERVICAL, needs surgery yet) Cardiac Catheterization: No Cardiovascular Problems: Yes High Cholesterol: No Chest Pain: No Congestive Heart Failure: No COPD: Yes Cerebrovascular Accident: Yes Diabetes: No Diminished Hearing: No Endocrine: No Gastrointestinal Disorders: Yes (COLITIS) GERD: Yes Genitourinary: Yes Headaches: No Hepatitis: Yes (C) Hiatal Hernia: No Heparin Induced Thrombocytopen: No Herniated Disk: Yes Hypertension: No Immune Disorder: No Implanted Vascular Access Dvce: No Insomnia: Yes Kidney Stones: No Musculoskeletal: Yes Neurologic: Yes Psychiatric: Yes Reproductive: No Respiratory: Yes Immunizations Current: Yes Migraines: No Myocardial Infarction: Yes (2011) Renal Failure: No Seizures: Yes Sickle Cell Disease: No Sleep Apnea: No Thyroid Disease: No Ulcer: No PNEUMOCCOCAL Vaccine (Year): 2 Menopausal: Yes : 10 Para: 6 Miscarriage: 3 : 1 Ectopic : Yes (1994) Ovarian Cysts: Yes Dilation and Curettage (D&C): Yes Tubal Ligation: Yes Past Surgical History AICD: No Appendectomy: Yes Arteriovenous Shunt: No Cardiac Surgery: No Coronary Artery Bypass Graft: No Ear Surgery: No Endocrine Surgery: No Eye Surgery: No Genitourinary Surgery: No Gynecologic Surgery: Yes (tubual ligation) Insulin Pump: No Joint Replacement: No Oral Surgery: No Pacemaker: No Thoracic Surgery: No Social History Alcohol Use: No Tobacco Use: Yes (1/2 PPD) Substance Use: No (denies) Allergies-Medications (Allergen,Severity, Reaction): Coded Allergies: Sulfa (Sulfonamide Antibiotics) (Verified Allergy, Severe, Rash, 05/07/17) magnesium (Verified Adverse Reaction, Unknown, PRUITIC RASH, 05/07/17) magnesium sulfate (Verified Adverse Reaction, Unknown, PRUITIC RASH, ) prochlorperazine (Verified Adverse Reaction, Unknown, ANGINA, 05/07/17) terbutaline (Verified Adverse Reaction, Unknown, HEART RATE ELEVATES, 05/07) Reported Meds & Prescriptions Reported Meds & Active Scripts Active Ultram (Tramadol HCl) 50 Mg Tab 50 Mg PO Q6H PRN Ibuprofen 600 Mg Tab 600 Mg PO TID Doxycycline Hyclate 100 Mg Cap 100 Mg PO BID Clindamycin (Clindamycin HCl) 150 Mg Cap 300 Mg PO QID Klonopin (Clonazepam) 1 Mg Tab 1 Mg PO TID Dicyclomine (Dicyclomine HCl) 20 Mg Tab 20 Mg PO TID PRN 30 Days Vistaril (Hydroxyzine Pamoate) 50 Mg Cap 100 Mg PO BID Reported Clonidine (Clonidine HCl) 0.1 Mg Tab Unknown Dose PO BID Zyprexa (Olanzapine) 20 Mg Tab 20 Mg PO HS Gabapentin 600 Mg Tab 1,200 Mg PO BID Review of Systems Except as stated in HPI: all other systems reviewed are Neg Physical Exam Narrative GENERAL: Well-developed, well nourished, in no acute distress, and non-ill appearing. SKIN: Multiple small bumps noted in the right axilla with surrounding erythematous. Is tender to palpation. No fluctuation or crepitus. No drainage. No packing. HEAD: Atraumatic. Normocephalic. EYES: Pupils equal and round. EOMI. No scleral icterus. No injection or drainage. ENT: No nasal bleeding or discharge. Mucous membranes pink and moist. NECK: Trachea midline. Supple. No nuclear rigidity. RESPIRATORY: No accessory muscle use. No respiratory distress. MUSCULOSKELETAL: No obvious deformities. No clubbing. No cyanosis. No edema. Full range of motion. NEUROLOGICAL: Awake and alert. No obvious cranial nerve deficits. Motor grossly within normal limits. Normal speech. PSYCHIATRIC: Appropriate mood and affect; insight and judgment normal. Data Data Last Documented VS Vital Signs Date Time Temp Pulse Resp B/P (MAP) Pulse Ox O2 Delivery O2 Flow Rate FiO2 05/07/17 17:30 98 Room Air 05/07/17 16:22 98.2 83 16 123/60 (81) Orders Orders Complete Blood Count With Diff (05/07/17 16:55) Comprehensive Metabolic Panel (05/07/17 16:55) [facility] ([facility] (05/07/17 17:00) Dalbavancin Inj (Dalvance Inj) (05/07/17 16:55) Iv Access Insert/Monitor (05/07/17 16:55) Ecg Monitoring (05/07/17 16:55) Oximetry (05/07/17 16:55) Sodium Chloride 0.9% Flush (Ns Flush) (05/07/17 17:00) Ketorolac Inj (Toradol Inj) (05/07/17 17:00) Ondansetron Inj (Zofran Inj) (05/07/17 17:00) Blood Culture (05/07/17 17:00) [facility] ([facility] (05/07/17 17:00) Potassium Chloride (Kcl) (05/07/17 18:45) Ed Discharge Order (05/07/17 18:45) Labs Laboratory Tests Test 05/07/17 17:40 White Blood Count 10.3 TH/MM3 Red Blood Count 4.52 MIL/MM3 Hemoglobin 11.7 GM/DL Hematocrit 36.2 % Mean Corpuscular Volume 79.9 FL Mean Corpuscular Hemoglobin 25.9 PG Mean Corpuscular Hemoglobin Concent 32.4 % Red Cell Distribution Width 17.5 % Platelet Count 211 TH/MM3 Mean Platelet Volume 9.2 FL Neutrophils (%) (Auto) 75.9 % Lymphocytes (%) (Auto) 15.3 % Monocytes (%) (Auto) 7.0 % Eosinophils (%) (Auto) 1.4 % Basophils (%) (Auto) 0.4 % Neutrophils # (Auto) 7.8 TH/MM3 Lymphocytes # (Auto) 1.6 TH/MM3 Monocytes # (Auto) 0.7 TH/MM3 Eosinophils # (Auto) 0.1 TH/MM3 Basophils # (Auto) 0.0 TH/MM3 CBC Comment DIFF FINAL Differential Comment Blood Urea Nitrogen 11 MG/DL Creatinine 0.70 MG/DL Random Glucose 140 MG/DL Total Protein 7.6 GM/DL Albumin 3.1 GM/DL Calcium Level 8.9 MG/DL Alkaline Phosphatase 135 U/L Aspartate Amino Transf (AST/SGOT) 33 U/L Alanine Aminotransferase (ALT/SGPT) 58 U/L Total Bilirubin 0.3 MG/DL Sodium Level 136 MEQ/L Potassium Level 3.1 MEQ/L Chloride Level 100 MEQ/L Carbon Dioxide Level 31.1 MEQ/L Anion Gap 5 MEQ/L Estimat Glomerular Filtration Rate 90 ML/MIN MDM Medical Decision Making Medical Screen Exam Complete: Yes Emergency Medical Condition: Yes Differential Diagnosis Abscess, cellulitis, hidradenitis, medical noncompliance Narrative Course Discussed patient with Dr. Peralta, who recommends inpatient dose of Dalvance here in the emergency department as since patient is unable to afford her outpatient antibiotics. The patient has cellulitis. There is no evidence of necrotizing fasciitis/ [place] at this time, pain is proportional and no crepitus is noted. There is no evidence of abscess as well at this time. The patient was given dose of Dalvance as she is unable to afford her other antibiotics and is allergic to sulfa. The patient was given signs and symptoms warnings for worsening infection , such as spreading of redness, increasing pain, and/or swelling, associated heat, or fever and instructed to return immediately if these signs or symptoms worsen. The patient is to follow up with physician in 3-5 days for recheck or return here if unable to establish outpatient follow up. Sooner if worsens or as needed. The patient agrees with plan. Patient in no obvious distress upon re-evaluation. All pertinent laboratory result(s) discussed with patient. Discussed patient with Dr. Peralta, who is in agreement with plan of care and disposition. Any questions/concerns in reference to patient diagnosis/condition discussed and clarified prior to patient's discharge. Reinforced sheer importance of close follow up with patient 's primary physician or primary care clinic. Instructed patient to return to ED immediately, if symptoms return/worsen. Patient showed understanding of above instructions. Further instructions and recommendations were detailed in discharge paperwork. Patient ambulated without difficulty out of ED at discharge. Diagnosis Primary Impression: Cellulitis of right axilla Additional Impression: Hypokalemia Referrals: [facility] Patient Instructions: Cellulitis (ED), General Instructions Additional Instructions: Follow-up with your primary care physician in 3-5 days for reevaluation. You do not need to take the antibiotics previously prescribed after receiving antibiotics here today. Use [id number] Tylenol and ibuprofen as needed for pain and fever control. Follow instructions on the packaging. Return to the emergency department if symptoms get worse. Disposition: 01 DISCHARGE HOME Condition: Stable Dalton Sheldon May 07, 2017 17:00
[2017-05-07 17:30] VITALS: O2SAT 98
[2017-05-07 18:06] LABS: AUTOMATED NEUTROPHIL # 7.8 TH/MM3 (1.8-7.7); BASOPHIL % 0.4 % (0.0-2.0); EOSINOPHIL # 0.1 TH/MM3 (0-0.4); EOSINOPHIL % 1.4 % (0.0-4.0); HEMATOCRIT 36.2 % (35.0-46.0); HEMOGLOBIN 11.7 GM/DL (11.6-15.3); LYMPH % 15.3 % (9.0-44.0); LYMPHOCYTE # 1.6 TH/MM3 (1.0-4.8); MEAN CELL VOLUME 79.9 FL (80.0-100.0); MEAN CORPUSCULAR HEMOGLOBIN 25.9 PG (27.0-34.0); MEAN CORPUSCULAR HGB CONC 32.4 % (32.0-36.0); MEAN PLATELET VOLUME 9.2 FL (7.0-11.0); MONOCYTE # 0.7 TH/MM3 (0-0.9); NEUT % 75.9 % (16.0-70.0); PLATELET COUNT 211 TH/MM3 (150-450); RED BLOOD COUNT 4.52 MIL/MM3 (4.00-5.30); RED CELL DISTRIBUTION WIDTH 17.5 % (11.6-17.2); WHITE BLOOD COUNT 10.3 TH/MM3 (4.0-11.0)
[2017-05-07 18:26] LABS: ALBUMIN 3.1 GM/DL (3.4-5.0); BICARBONATE 31.1 MEQ/L (21.0-32.0); BLOOD UREA NITROGEN 11 MG/DL (7-18); CALCIUM 8.9 MG/DL (8.5-10.1); CHLORIDE 100 MEQ/L (98-107); GLOMERULAR FILTRATION RATE 90 ML/MIN (>89); GLUCOSE,RANDOM 140 MG/DL (74-106); SODIUM (NA) 136 MEQ/L (136-145)
[2017-05-07 18:27] LABS: ALT (GPT) 58 U/L (10-53); AST (GOT) 33 U/L (15-37)
[2017-05-07 18:29] LABS: ALKALINE PHOSPHATASE 135 U/L (45-117); TOTAL BILIRUBIN ADULT 0.3 MG/DL (0.2-1.0); TOTAL PROTEIN 7.6 GM/DL (6.4-8.2)
[2017-05-07] MEDS ORDERED: POTASSIUM CHLORIDE 20 MEQ CONTROLLED RELEASE TAB PO ONE (18:45)
== END 2017-05-07 19:11 | disposition home or self-care (01) ==
LOC: NEPK 16:01 → NEPD 19:11
DX: L03.111 Cellulitis of right axilla (principal); E87.6 Hypokalemia; C53.9 Malignant neoplasm of cervix uteri, unspecified; J44.9 Chronic obstructive pulmonary disease, unspecified; B19.20 Unspecified viral hepatitis C without hepatic coma; K21.9 Gastro-esophageal reflux disease without esophagitis; F32.9 Major depressive disorder, single episode, unspecified; F17.200 Nicotine dependence, unspecified, uncomplicated; Z86.73 Personal history of transient ischemic attack (TIA), and cerebral infarction without residual deficits
CPT/HCPCS: 80053; 85025; 87040; 96374; 96375; 99283; J1885; J2405

== ENCOUNTER 2017-05-08 19:04 | Emergency (ER) | payer SELFPAY ==
[~2017-05-08] VITALS: Ht 162.6 cm; Wt 65.1 kg
[2017-05-08 19:20] VITALS: BP 142/80; PULSE 93; RESP 16; TEMP 99.9; O2SAT 97
[2017-05-08] MEDS ORDERED: DALBAVANCIN INJ 1,500 MG in DEXTROSE 5% IN WATE 500 ML INJ 500 ML IV STA ×2 (20:03)
[2017-05-08] MEDS ORDERED: ASP: Location of Dalbavancin administration OTHER ONE (20:15)
[2017-05-08] MEDS ORDERED: ASP: Does not meet inpatient admission criteria OTHER ONE (20:15)
[2017-05-08] MEDS ORDERED: traMADol HCL 50 MG TAB PO ONE (20:15)
[2017-05-08] MEDS ORDERED: KETOROLAC TROMETHAMINE 30 MG/ML (IVP) VIAL IV PUSH ONE (20:15)
[2017-05-08] MEDS ORDERED: POTASSIUM CHLORIDE 20 MEQ CONTROLLED RELEASE TAB PO ONE (20:15)
[2017-05-08] MEDS ORDERED: MISCELLANEOUS PHARMACY INFORMATION XX ONE (20:15)
[2017-05-08] MEDS ORDERED: ASP: No known hypersensitivity to Vanco, Telavancin, Dalbavancin OTHER ONE (20:15)
--- NOTE | 2017-05-08 20:18 | PD ---
HPI Chief Complaint: Skin Problem Time Seen by Provider: 19:26 Travel History International Travel<30 days: No Contact w/Intl Traveler<30days: No Traveled to known affect area: No History of Present Illness HPI 47-year-old female complaints of right and left axilla pain. Patient was seen in emergency room 2 days ago for hidradenitis. Patient was given an IM injection clindamycin, doxycycline 100 mg p.o. and discharged. Patient was given prescription for clindamycin and doxycycline. Patient stated that she could not afford the medication has not filled the prescription. Patient also given prescription for Ultram for pain. Patient was seen in emergency room again yesterday and was advised to have Dalvance IV injection. Potassium was 3.1. Patient left prior to the medication to be given. Patient returned to the ED today and complains of persistent pain on the right and left axilla. Patient denies any fever chills. Patient states the pain is sharp pain more severe on the right axilla than the left axilla. On a scale of 1-10 the pain is a 9. PFSH Past Medical History Arthritis: No Asthma: Yes Autoimmune Disease: No Blood Disorders: No Bipolar Disorder: Yes Anxiety: Yes Depression: Yes Heart Rhythm Problems: No Cancer: Yes (CERVICAL, needs surgery yet) Cardiac Catheterization: No Cardiovascular Problems: Yes ("mild" MD ) High Cholesterol: No Chest Pain: No Congestive Heart Failure: No COPD: Yes Cerebrovascular Accident: Yes (TIA) Diabetes: No Diminished Hearing: No Endocrine: No Gastrointestinal Disorders: Yes (COLITIS) GERD: Yes Genitourinary: Yes Headaches: No Hepatitis: Yes (C) Hiatal Hernia: No Heparin Induced Thrombocytopen: No Herniated Disk: Yes Hypertension: No Immune Disorder: No Implanted Vascular Access Dvce: No Insomnia: Yes Kidney Stones: No Musculoskeletal: Yes Neurologic: Yes Psychiatric: Yes Reproductive: No Respiratory: Yes (COPD) Immunizations Current: Yes Migraines: No Myocardial Infarction: Yes (2011) Renal Failure: No Seizures: Yes Sickle Cell Disease: No Sleep Apnea: No Thyroid Disease: No Ulcer: No PNEUMOCCOCAL Vaccine (Year): 2 Menopausal: Yes : 10 Para: 6 Miscarriage: 3 : 1 Ectopic : Yes (1994) Ovarian Cysts: Yes Dilation and Curettage (D&C): Yes Tubal Ligation: Yes Past Surgical History AICD: No Appendectomy: Yes Arteriovenous Shunt: No Cardiac Surgery: No Coronary Artery Bypass Graft: No Ear Surgery: No Endocrine Surgery: No Eye Surgery: No Genitourinary Surgery: No Gynecologic Surgery: Yes (tubual ligation) Insulin Pump: No Joint Replacement: No Oral Surgery: No Pacemaker: No Thoracic Surgery: No Social History Alcohol Use: No Tobacco Use: Yes (1/2 PPD) Substance Use: Yes (sometimes) Allergies-Medications (Allergen,Severity, Reaction): Coded Allergies: Sulfa (Sulfonamide Antibiotics) (Verified Allergy, Severe, Rash, 05/07/17) magnesium (Verified Adverse Reaction, Unknown, PRUITIC RASH, 05/07/17) magnesium sulfate (Verified Adverse Reaction, Unknown, PRUITIC RASH, ) prochlorperazine (Verified Adverse Reaction, Unknown, ANGINA, 05/07/17) terbutaline (Verified Adverse Reaction, Unknown, HEART RATE ELEVATES, 05/07) Reported Meds & Prescriptions Reported Meds & Active Scripts Active Ultram (Tramadol HCl) 50 Mg Tab 50 Mg PO Q6H PRN Ibuprofen 600 Mg Tab 600 Mg PO TID Doxycycline Hyclate 100 Mg Cap 100 Mg PO BID Clindamycin (Clindamycin HCl) 150 Mg Cap 300 Mg PO QID Klonopin (Clonazepam) 1 Mg Tab 1 Mg PO TID Dicyclomine (Dicyclomine HCl) 20 Mg Tab 20 Mg PO TID PRN 30 Days Vistaril (Hydroxyzine Pamoate) 50 Mg Cap 100 Mg PO BID Reported Clonidine (Clonidine HCl) 0.1 Mg Tab Unknown Dose PO BID Zyprexa (Olanzapine) 20 Mg Tab 20 Mg PO HS Gabapentin 600 Mg Tab 1,200 Mg PO BID Review of Systems General / Constitutional: No: Fever Eyes: No: Visual changes HENT: No: Headaches Cardiovascular: No: Chest Pain or Discomfort Respiratory: No: Shortness of Breath Gastrointestinal: No: Abdominal Pain Genitourinary: No: Dysuria Musculoskeletal: No: Pain Skin: No Rash Neurologic: No: Weakness Psychiatric: No: Depression Endocrine: No: Polydipsia Hematologic/Lymphatic: No: Easy Bruising Physical Exam Narrative GENERAL: Well-nourished, well-developed patient. SKIN: Focused skin assessment warm/dry. HEAD: Normocephalic. EYES: No scleral icterus. No injection or drainage. NECK: Supple, trachea midline. No JVD or lymphadenopathy. CARDIOVASCULAR: Regular rate and rhythm without murmurs, gallops, or rubs. RESPIRATORY: Breath sounds equal bilaterally. No accessory muscle use. GASTROINTESTINAL: Abdomen soft, non-tender, nondistended. MUSCULOSKELETAL: No cyanosis, or edema. BACK: Nontender without obvious deformity. No CVA tenderness. Patient has area of redness swelling tenderness right axilla area. No induration noted. No discharge. Patient had 2 palpable lesion on the left axial area and nontender palpation. Data Data Last Documented VS Vital Signs Date Time Temp Pulse Resp B/P (MAP) Pulse Ox O2 Delivery O2 Flow Rate FiO2 05/08/17 19:20 99.9 93 16 142/80 (100) 97 Orders Orders Asp:No Reaction To Dalbav/Vanc (Asp Crit (05/08/17 20:15) Asp: Does Not Meet Inpt Admit (Asp Crit: (05/08/17 20:15) Asp: Location Of Dalbav Admin (Asp Crit: (05/08/17 20:15) [facility] [place] (05/08/17 20:15) Dalbavancin Inj (Dalvance Inj) (05/08/17 20:03) Ketorolac Inj (Toradol Inj) (05/08/17 20:15) Tramadol (Ultram) (05/08/17 20:15) Potassium Chloride (Kcl) (05/08/17 20:15) MDM Medical Decision Making Medical Screen Exam Complete: Yes Emergency Medical Condition: Yes Differential Diagnosis Differential diagnosis including folliculitis, cellulitis, abscess. Narrative Course 47-year-old female with persistent pain swelling to her axilla. Patient was given prescription for clindamycin and 9 however unable to fill the prescription. Patient was seen in emergency room 2 days ago and again yesterday however left before Dalvance IV was given to the patient. Dalvance 1500 mg IV given today. Toradol 30 mg IV given. Ultram 50 mg grams p.o. given. KCl 40 mEq p.o. given. Diagnosis Primary Impression: Cellulitis of right axilla Patient Instructions: General Instructions Additional Instructions: Follow-up local physician. Return if worse. Med/Other Pt SpecificInfo: No Change to Meds Disposition: DISCHARGE HOME Condition: Stable Amado Peralta MD May 08, 2017 20:17
[2017-05-08 22:00] VITALS: BP 128/74; PULSE 82; RESP 18; O2SAT 98
[2017-05-08 23:44] VITALS: BP 130/83; TEMP 98.9
[2017-05-09 00:45] VITALS: RESP 20
== END 2017-05-08 23:53 | disposition home or self-care (01) ==
LOC: PHED 19:04
DX: L03.111 Cellulitis of right axilla (principal); M79.622 Pain in left upper arm; K21.9 Gastro-esophageal reflux disease without esophagitis; F31.9 Bipolar disorder, unspecified; F41.8 Other specified anxiety disorders; I25.2 Old myocardial infarction; F17.200 Nicotine dependence, unspecified, uncomplicated; Z87.09 Personal history of other diseases of the respiratory system; Z86.73 Personal history of transient ischemic attack (TIA), and cerebral infarction without residual deficits; Z87.19 Personal history of other diseases of the digestive system; Z87.448 Personal history of other diseases of urinary system; Z87.39 Personal history of other diseases of the musculoskeletal system and connective tissue; Z86.69 Personal history of other diseases of the nervous system and sense organs
CPT/HCPCS: 96365; 96366; 96375; 99284; J0875; J1885; J7060

== ENCOUNTER 2017-06-15 13:36 | Emergency (ER) | payer SELFPAY ==
[2017-06-16] MEDS ORDERED: ZYPR15TA PO ×2 (11:44→11:58)
[2017-06-16] MEDS ORDERED: VIST50CA PO ×2 (11:44→11:58)
[2017-06-16] MEDS ORDERED: GABA600T PO ×2 (11:44→11:58)
[2017-06-16] MEDS ORDERED: CLON1 PO (11:44)
== END 2017-06-15 14:30 | disposition left against medical advice (07) ==
LOC: NED 13:36
DX: Z53.21 Procedure and treatment not carried out due to patient leaving prior to being seen by health care provider (principal)
CPT/HCPCS: 99281

== ENCOUNTER 2017-06-16 10:16 | Emergency (ER) | payer SELFPAY ==
[~2017-06-16] VITALS: Ht 162.6 cm; Wt 61.5 kg
[2017-06-16 10:35] VITALS: BP 164/97; PULSE 83; RESP 18; TEMP 98.6; O2SAT 100
[2017-06-16] MEDS ORDERED: CLON1 PO (11:44)
[2017-06-16] MEDS ORDERED: ZYPR15TA PO ×2 (11:44→11:58)
[2017-06-16] MEDS ORDERED: VIST50CA PO ×2 (11:44→11:58)
[2017-06-16] MEDS ORDERED: GABA600T PO ×2 (11:44→11:58)
[2017-06-16] MEDS ORDERED: GABAPENTIN 300 MG CAP PO SCH (12:00)
--- NOTE | 2017-06-16 12:04 | PD ---
HPI Chief Complaint: Medication Refill Request Time Seen by Provider: 11:43 Travel History International Travel<30 days: No Contact w/Intl Traveler<30days: No Traveled to known affect area: No History of Present Illness HPI 47-year-old female presents to the emergency room for medication refill. Patient states she has been out of her medication for about 1 week. Medications include gabapentin, Zyprexa, clonidine, and Vistaril. She has tried multiple times to follow-up with [facility] but they are always full. States their next open appointment is in 1 month. Patient states for the past 3 days she has been crying and in a panic attack because she does not have her medications. States she is concerned about withdrawing. She states she has associated headache from crying so much. PFSH Past Medical History Arthritis: No Asthma: Yes Autoimmune Disease: No Blood Disorders: No Bipolar Disorder: Yes Anxiety: Yes Depression: Yes Heart Rhythm Problems: No Cancer: Yes (CERVICAL) Cardiac Catheterization: No Cardiovascular Problems: Yes (STATES MILD LA) High Cholesterol: No Chest Pain: No Congestive Heart Failure: No COPD: Yes Cerebrovascular Accident: Yes (TIA) Diabetes: No Diminished Hearing: No Endocrine: No Gastrointestinal Disorders: Yes (COLITIS) GERD: Yes Genitourinary: Yes Headaches: No Hepatitis: Yes (C) Hiatal Hernia: No Heparin Induced Thrombocytopen: No Herniated Disk: Yes Hypertension: No Immune Disorder: No Implanted Vascular Access Dvce: No Insomnia: Yes Kidney Stones: No Musculoskeletal: Yes Neurologic: Yes Psychiatric: Yes Reproductive: No Respiratory: Yes (COPD) Immunizations Current: Yes Migraines: No Myocardial Infarction: Yes (2011) Renal Failure: No Seizures: Yes Sickle Cell Disease: No Sleep Apnea: No Thyroid Disease: No Ulcer: No PNEUMOCCOCAL Vaccine (Year): 2 Menopausal: Yes : 10 Para: 6 Miscarriage: 3 : 1 Ectopic : Yes (1994) Ovarian Cysts: Yes Dilation and Curettage (D&C): Yes Tubal Ligation: Yes Past Surgical History AICD: No Appendectomy: Yes Arteriovenous Shunt: No Cardiac Surgery: No Coronary Artery Bypass Graft: No Ear Surgery: No Endocrine Surgery: No Eye Surgery: No Genitourinary Surgery: No Gynecologic Surgery: Yes Insulin Pump: No Joint Replacement: No Oral Surgery: No Pacemaker: No Thoracic Surgery: No Social History Alcohol Use: No Tobacco Use: Yes (/ PPD) 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, MORPHINE) Allergies-Medications (Allergen,Severity, Reaction): Coded Allergies: Sulfa (Sulfonamide Antibiotics) (Verified Allergy, Severe, Rash, 06/16/17) magnesium (Verified Adverse Reaction, Unknown, PRUITIC RASH, 06/16/17) magnesium sulfate (Verified Adverse Reaction, Unknown, PRUITIC RASH, ) prochlorperazine (Verified Adverse Reaction, Unknown, ANGINA, 06/16/17) terbutaline (Verified Adverse Reaction, Unknown, HEART RATE ELEVATES, 06/16) Reported Meds & Prescriptions Reported Meds & Active Scripts Active Vistaril (Hydroxyzine Pamoate) 50 Mg Cap 100 Mg PO BID Zyprexa (Olanzapine) 15 Mg Tab 15 Mg PO HS Gabapentin 600 Mg Tab 1,200 Mg PO BID Reported Zyprexa (Olanzapine) 15 Mg Tab 15 Mg PO HS Klonopin (Clonazepam) 1 Mg Tab 1 Mg PO TID Vistaril (Hydroxyzine Pamoate) 50 Mg Cap 100 Mg PO BID Gabapentin 600 Mg Tab 1,200 Mg PO BID Review of Systems Except as stated in HPI: all other systems reviewed are Neg Physical Exam Narrative GENERAL: Well-nourished, well-developed female no acute distress. Afebrile. Ambulatory. SKIN: Focused skin assessment warm/dry. HEAD: Normocephalic. EYES: No scleral icterus. No injection or drainage. NECK: Supple, trachea midline. No JVD or lymphadenopathy. CARDIOVASCULAR: Slightly tachycardic. Regular rhythm without murmurs, gallops, or rubs. RESPIRATORY: Breath sounds equal bilaterally. No accessory muscle use. PSYCHIATRIC: No delusional thought processes. No hallucinations. Depressed mood. Crying. Data Data Last Documented VS Vital Signs Date Time Temp Pulse Resp B/P (MAP) Pulse Ox O2 Delivery O2 Flow Rate FiO2 06/16/17 10:35 98.6 83 18 164/97 (119) 100 Orders Orders Hydroxyzine Pamoate (Vistaril) (06/16/17 12:00) Gabapentin (Neurontin) (06/16/17 12:00) MDM Medical Decision Making Medical Screen Exam Complete: Yes Emergency Medical Condition: Yes Medical Record Reviewed: Yes Differential Diagnosis Panic attack, anxiety disorder, medication refill, bipolar disorder Narrative Course 47-year-old female with a history of adjustment disorder, bipolar disorder, anxiety, and drug abuse presents to the emergency room requesting medication refill. Patient states she ran out of her medication about 1 week ago. She tried multiple times to get into see [facility] but they are always too full. Medications include clonidine, Zyprexa, Vistaril, and gabapentin. Patient is having a panic attack while in the emergency room. She is very anxious, crying, shaking. She was given a dose of Vistaril and gabapentin while in the emergency room at her request. Patient was informed that we do not routinely refill medications in the emergency room and she will need to continue following up at [facility] for refills. She will be given a 10 day supply of noncontrolled medications including Zyprexa, Vistaril, and gabapentin. She was told to return for any urgent or emergent medical conditions. She understands and agrees to plan. Diagnosis Primary Impression: Medication refill Referrals: [facility] (Out patient) Additional Instructions: Take medications as directed. Follow-up with a primary care physician. Return to the emergency room for worsening symptoms. Med/Other Pt SpecificInfo: Prescription(s) given Scripts Hydroxyzine Pamoate (Vistaril) 50 Mg Cap 100 MG PO BID, #40 CAP 0 Refills Prov: Valeria Long MD 06/16/17 Olanzapine (Zyprexa) 15 Mg Tab 15 MG PO HS, #10 TAB 0 Refills Prov: Valeria Long MD 06/16/17 Gabapentin (Gabapentin) 600 Mg Tab 1200 MG PO BID, #40 TAB 0 Refills Prov: Valeria Long MD 06/16/17 Disposition: 01 DISCHARGE HOME Condition: Stable Rocio Corea Jun 16, 2017 12:04
== END 2017-06-16 12:22 | disposition home or self-care (01) ==
LOC: NEPK 10:16
DX: F31.9 Bipolar disorder, unspecified (principal); F17.200 Nicotine dependence, unspecified, uncomplicated; F41.0 Panic disorder [episodic paroxysmal anxiety]; Z76.0 Encounter for issue of repeat prescription
CPT/HCPCS: 99281

== ENCOUNTER 2017-07-01 12:18 | Inpatient (IN) | payer SELFPAY ==
[~2017-07-01] VITALS: Ht 162.6 cm; Wt 57.5 kg
[~2017-07-01 12:18] MED LIST changes: -CLIN150C14 PO; -CLON0.1T PO; -DICY20TA10 PO; -DOXY100C PO; -IBUP-232 PO; -TRAM50 PO; +ZYPR15TA PO; -ZYPR20TA PO
[2017-07-01 12:22] VITALS: BP 141/83; PULSE 94; RESP 14; TEMP 98.4; O2SAT 100
--- NOTE | 2017-07-01 13:03 | PD ---
HPI Chief Complaint: Back/ Neck Pain or Injury Time Seen by Provider: 12:37 Travel History International Travel<30 days: No Contact w/Intl Traveler<30days: No Traveled to known affect area: No History of Present Illness HPI 47-year-old female presents to the emergency room for evaluation of severe right lower back pain and right hip pain for the past day. She states 1 month ago she fell and has had intermittent back pain since then but over the past day it has become so severe that she can no longer walk. Pain is localized to the right lateral hip and radiates into her back. Worsened with any range of motion. States it kept her up last night because anytime she tries to lay on her side she has severe pain. She has associated paresthesias on the top of her right foot that have been ongoing for the past month. She denies loss of bowel or bladder control. Patient does report long history of IV drug use. She last tried to inject morphine yesterday but missed. She also reports intermittent night sweats and chills but denies any objective fevers. PFSH Past Medical History Arthritis: No Asthma: Yes Autoimmune Disease: No Blood Disorders: No Bipolar Disorder: Yes Anxiety: Yes Depression: Yes Heart Rhythm Problems: No Cancer: Yes (CERVICAL) Cardiac Catheterization: No Cardiovascular Problems: Yes High Cholesterol: No Chest Pain: No Congestive Heart Failure: No COPD: Yes Cerebrovascular Accident: Yes (TIA) Diabetes: No Diminished Hearing: No Endocrine: No Gastrointestinal Disorders: Yes (COLITIS) GERD: Yes Genitourinary: Yes Headaches: No Hepatitis: Yes (C) Hiatal Hernia: No Heparin Induced Thrombocytopen: No Herniated Disk: Yes Hypertension: No Immune Disorder: No Implanted Vascular Access Dvce: No Insomnia: Yes Kidney Stones: No Musculoskeletal: Yes Neurologic: Yes Psychiatric: Yes Reproductive: No Respiratory: Yes Immunizations Current: Yes Migraines: No Myocardial Infarction: Yes (2011) Renal Failure: No Seizures: Yes Sickle Cell Disease: No Sleep Apnea: No Thyroid Disease: No Ulcer: No PNEUMOCCOCAL Vaccine (Year): 2 ?: Not Menopausal: Yes : 10 Para: 6 Miscarriage: 3 : 1 Ectopic : Yes (1994) Ovarian Cysts: Yes Dilation and Curettage (D&C): Yes Tubal Ligation: Yes Past Surgical History AICD: No Appendectomy: Yes Arteriovenous Shunt: No Cardiac Surgery: No Coronary Artery Bypass Graft: No Ear Surgery: No Endocrine Surgery: No Eye Surgery: No Genitourinary Surgery: No Gynecologic Surgery: Yes Insulin Pump: No Joint Replacement: No Oral Surgery: No Pacemaker: No Thoracic Surgery: No Social History Alcohol Use: No Tobacco Use: Yes (1/2 PPD) 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, MORPHINE) Allergies-Medications (Allergen,Severity, Reaction): Coded Allergies: Sulfa (Sulfonamide Antibiotics) (Verified Allergy, Severe, Rash, 06/16/17) magnesium (Verified Adverse Reaction, Unknown, PRUITIC RASH, 06/16/17) magnesium sulfate (Verified Adverse Reaction, Unknown, PRUITIC RASH, ) prochlorperazine (Verified Adverse Reaction, Unknown, ANGINA, 06/16/17) terbutaline (Verified Adverse Reaction, Unknown, HEART RATE ELEVATES, 06/16) Reported Meds & Prescriptions Reported Meds & Active Scripts Active Reported Zyprexa (Olanzapine) 15 Mg Tab 15 Mg PO HS Klonopin (Clonazepam) 1 Mg Tab 1 Mg PO TID Vistaril (Hydroxyzine Pamoate) 50 Mg Cap 100 Mg PO BID Gabapentin 600 Mg Tab 1,200 Mg PO BID Review of Systems Except as stated in HPI: all other systems reviewed are Neg Physical Exam Narrative GENERAL: Well-nourished, well-developed female no acute distress. Afebrile. SKIN: Focused skin assessment warm/dry. No erythema or ecchymosis. HEAD: Normocephalic. EYES: No scleral icterus. No injection or drainage. NECK: Supple, trachea midline. No JVD or lymphadenopathy. CARDIOVASCULAR: Regular rate and rhythm without murmurs, gallops, or rubs. RESPIRATORY: Breath sounds equal bilaterally. No accessory muscle use. MUSCULOSKELETAL: No cyanosis, or edema. 2+ dorsalis pedis pulse in the right. Positive straight leg raise especially on the right. Extreme tenderness to palpation of the right lateral hip. BACK: No midline tenderness. No obvious deformity. No CVA tenderness. Data Data Last Documented VS Vital Signs Date Time Temp Pulse Resp B/P (MAP) Pulse Ox O2 Delivery O2 Flow Rate FiO2 07/01/17 13:26 18 07/01/17 12:22 98.4 94 141/83 (102) 100 Orders Orders Complete Blood Count With Diff (07/01/17 12:59) Comprehensive Metabolic Panel (07/01/17 12:59) C-Reactive Protein (Crp) (07/01/17 12:59) Westergren Sedimentation Rate (07/01/17 12:59) Hip, Uni(Ap&Lat) W Ap Pelvis (07/01/17 ) Ct Hip W/O Contrast (07/01/17 ) Ct Lumb Spine W/O Contrast (07/01/17 ) Ketorolac Inj (Toradol Inj) (07/01/17 13:45) Gabapentin (Neurontin) (07/01/17 13:45) Mri Joint Hip W&W/O Contrast (07/01/17 ) Mri L Spine W&W/O Contrast (07/01/17 ) Admit Order (Ed Use Only) (07/01/17 15:21) Drug Screen, Random Urine (07/01/17 15:22) Labs Laboratory Tests Test 07/01/17 13:37 White Blood Count 5.7 TH/MM3 Red Blood Count 4.69 MIL/MM3 Hemoglobin 12.2 GM/DL Hematocrit 37.4 % Mean Corpuscular Volume 79.6 FL Mean Corpuscular Hemoglobin 26.1 PG Mean Corpuscular Hemoglobin Concent 32.7 % Red Cell Distribution Width 16.3 % Platelet Count 256 TH/MM3 Mean Platelet Volume 9.1 FL Neutrophils (%) (Auto) 50.7 % Lymphocytes (%) (Auto) 35.2 % Monocytes (%) (Auto) 9.4 % Eosinophils (%) (Auto) 3.9 % Basophils (%) (Auto) 0.8 % Neutrophils # (Auto) 2.9 TH/MM3 Lymphocytes # (Auto) 2.0 TH/MM3 Monocytes # (Auto) 0.5 TH/MM3 Eosinophils # (Auto) 0.2 TH/MM3 Basophils # (Auto) 0.0 TH/MM3 CBC Comment DIFF FINAL Differential Comment Erythrocyte Sedimentation Rate 33 mm/hr Blood Urea Nitrogen 7 MG/DL Creatinine 0.83 MG/DL Random Glucose 91 MG/DL Total Protein 7.6 GM/DL Albumin 3.5 GM/DL Calcium Level 8.8 MG/DL Alkaline Phosphatase 113 U/L Aspartate Amino Transf (AST/SGOT) 26 U/L Alanine Aminotransferase (ALT/SGPT) 22 U/L Total Bilirubin 0.3 MG/DL Sodium Level 140 MEQ/L Potassium Level 3.6 MEQ/L Chloride Level 106 MEQ/L Carbon Dioxide Level 28.7 MEQ/L Anion Gap 5 MEQ/L Estimat Glomerular Filtration Rate 74 ML/MIN C-Reactive Protein 2.10 MG/DL MDM Medical Decision Making Medical Screen Exam Complete: Yes Emergency Medical Condition: Yes Medical Record Reviewed: Yes Differential Diagnosis Muscle strain, fracture, contusion, septic arthritis, osteomyelitis Narrative Course 47-year-old female presents to the emergency room for evaluation of severe right hip and low back pain for the past day. States pain has been intermittent over the past month but especially bad over the past day. She has associated subjective fevers and chills. Patient does report history of IV drug use and last use last night to try to cope with the pain. Patient has extreme tenderness to palpation of the right lateral hip and pain is worsened when she lifts her head. Vital signs stable. I spoke to my attending physician , Dr. Peralta, who recommends workup. IV access established basic labs obtained. Patient transferred to medical pod for further evaluation and disposition. Please see alternate provider note for details. Admitting Information Admitting Physician Requests: Admit Condition: Stable Rocio Corea July 01, 2017 13:03
--- NOTE | 2017-07-01 13:37 | RADRPT ---
EXAM DATE/TIME: 07/01/2017 13:23 [facility] COMPARISON: HIP RIGHT (AP&LAT 2/3VWS) W AP PELVIS, February 08, 2017, 15:49. INDICATIONS : Right hip pain after falling backwards. MEDICAL HISTORY : Gastroesophageal reflux disease. TIA. Colitis. Seizures. PID. Ectopic , 2005. Cervical cance r. Hepatitis C. MRSA. SURGICAL HISTORY : Tubal ligation. Hand and foot surgery. Dilation and curettage ENCOUNTER: Initial ACUITY: 1 day PAIN SCORE: 10/10 LOCATION: Right hip FINDINGS: Examination of the right hip was performed with AP Pelvis. The primary and secondary trabecular cruz anita of the femoral neck is intact. The hip joint is of normal width without significant sclerosis or bony hypertrophy. The acetabulum is grossly intact. CONCLUSION: Negative for fracture or dislocation. Follow up in 7-10 days is suggested if symptoms persist. Shon Alvarado MD FACR on July 01, 2017 at 13:34 Board Certified Radiologist. This report was verified electronically.
[2017-07-01] MEDS ORDERED: KETOROLAC TROMETHAMINE 30 MG/ML (IVP) VIAL IV PUSH ONE (13:45)
[2017-07-01] MEDS ORDERED: GABAPENTIN 300 MG CAP PO ONE (13:45)
[2017-07-01 13:58] LABS: AUTOMATED NEUTROPHIL # 2.9 TH/MM3 (1.8-7.7); BASOPHIL % 0.8 % (0.0-2.0); EOSINOPHIL # 0.2 TH/MM3 (0-0.4); EOSINOPHIL % 3.9 % (0.0-4.0); HEMATOCRIT 37.4 % (35.0-46.0); HEMOGLOBIN 12.2 GM/DL (11.6-15.3); LYMPH % 35.2 % (9.0-44.0); MEAN CELL VOLUME 79.6 FL (80.0-100.0); MEAN CORPUSCULAR HEMOGLOBIN 26.1 PG (27.0-34.0); MEAN CORPUSCULAR HGB CONC 32.7 % (32.0-36.0); MEAN PLATELET VOLUME 9.1 FL (7.0-11.0); MONO % 9.4 % (0.0-8.0); MONOCYTE # 0.5 TH/MM3 (0-0.9); NEUT % 50.7 % (16.0-70.0); PLATELET COUNT 256 TH/MM3 (150-450); RED BLOOD COUNT 4.69 MIL/MM3 (4.00-5.30); RED CELL DISTRIBUTION WIDTH 16.3 % (11.6-17.2); WHITE BLOOD COUNT 5.7 TH/MM3 (4.0-11.0)
[2017-07-01 14:18] LABS: ALBUMIN 3.5 GM/DL (3.4-5.0); AST (GOT) 26 U/L (15-37); BICARBONATE 28.7 MEQ/L (21.0-32.0); BLOOD UREA NITROGEN 7 MG/DL (7-18); CALCIUM 8.8 MG/DL (8.5-10.1); CHLORIDE 106 MEQ/L (98-107); CREATININE 0.83 MG/DL (0.50-1.00); GLOMERULAR FILTRATION RATE 74 ML/MIN (>89); GLUCOSE,RANDOM 91 MG/DL (74-106); SODIUM (NA) 140 MEQ/L (136-145)
[2017-07-01 14:19] LABS: ALT (GPT) 22 U/L (10-53)
[2017-07-01 14:21] LABS: ALKALINE PHOSPHATASE 113 U/L (45-117); TOTAL BILIRUBIN ADULT 0.3 MG/DL (0.2-1.0); TOTAL PROTEIN 7.6 GM/DL (6.4-8.2)
--- NOTE | 2017-07-01 14:53 | PD ---
Physical Exam Narrative Patient was seen by me and my bindery assistant. Data Data Last Documented VS Vital Signs Date Time Temp Pulse Resp B/P (MAP) Pulse Ox O2 Delivery O2 Flow Rate FiO2 07/01/17 13:26 18 07/01/17 12:22 98.4 94 141/83 (102) 100 Orders Orders Complete Blood Count With Diff (07/01/17 12:59) Comprehensive Metabolic Panel (07/01/17 12:59) C-Reactive Protein (Crp) (07/01/17 12:59) Westergren Sedimentation Rate (07/01/17 12:59) Hip, Uni(Ap&Lat) W Ap Pelvis (07/01/17 ) Ct Hip W/O Contrast (07/01/17 ) Ct Lumb Spine W/O Contrast (07/01/17 ) Ketorolac Inj (Toradol Inj) (07/01/17 13:45) Gabapentin (Neurontin) (07/01/17 13:45) Mri Joint Hip W&W/O Contrast (07/01/17 ) Mri L Spine W&W/O Contrast (07/01/17 ) Admit Order (Ed Use Only) (07/01/17 15:21) Drug Screen, Random Urine (07/01/17 15:22) Labs Laboratory Tests Test 07/01/17 13:37 White Blood Count 5.7 TH/MM3 Red Blood Count 4.69 MIL/MM3 Hemoglobin 12.2 GM/DL Hematocrit 37.4 % Mean Corpuscular Volume 79.6 FL Mean Corpuscular Hemoglobin 26.1 PG Mean Corpuscular Hemoglobin Concent 32.7 % Red Cell Distribution Width 16.3 % Platelet Count 256 TH/MM3 Mean Platelet Volume 9.1 FL Neutrophils (%) (Auto) 50.7 % Lymphocytes (%) (Auto) 35.2 % Monocytes (%) (Auto) 9.4 % Eosinophils (%) (Auto) 3.9 % Basophils (%) (Auto) 0.8 % Neutrophils # (Auto) 2.9 TH/MM3 Lymphocytes # (Auto) 2.0 TH/MM3 Monocytes # (Auto) 0.5 TH/MM3 Eosinophils # (Auto) 0.2 TH/MM3 Basophils # (Auto) 0.0 TH/MM3 CBC Comment DIFF FINAL Differential Comment Erythrocyte Sedimentation Rate 33 mm/hr Blood Urea Nitrogen 7 MG/DL Creatinine 0.83 MG/DL Random Glucose 91 MG/DL Total Protein 7.6 GM/DL Albumin 3.5 GM/DL Calcium Level 8.8 MG/DL Alkaline Phosphatase 113 U/L Aspartate Amino Transf (AST/SGOT) 26 U/L Alanine Aminotransferase (ALT/SGPT) 22 U/L Total Bilirubin 0.3 MG/DL Sodium Level 140 MEQ/L Potassium Level 3.6 MEQ/L Chloride Level 106 MEQ/L Carbon Dioxide Level 28.7 MEQ/L Anion Gap 5 MEQ/L Estimat Glomerular Filtration Rate 74 ML/MIN C-Reactive Protein 2.10 MG/DL MDM Supervised Visit with SOFIA: Yes Interpretation(s) 1449 PM. CBC within normal limits. Sed rate 33. CMP within normal limits. C- reactive protein 2.1. Diagnosis Primary Impression: Right hip pain Additional Impressions: Low back pain Qualified Codes: M54.5 - Low back pain History of intravenous drug abuse Admitting Information Admitting Physician Requests: Admit Condition: Stable Amado Peralta MD July 01, 2017 14:53
--- NOTE | 2017-07-01 15:16 | RADRPT ---
EXAM DATE/TIME: 07/01/2017 13:54 [facility] COMPARISON: No previous studies available for comparison. INDICATIONS : Fall,back pain RADIATION DOSE: 11.73 CTDIvol (mGy) MEDICAL HISTORY : Cardiovascular disease. Chronic obstructive pulmonary disease. Seizures.Hep c SURGICAL HISTORY : Non-responsive. ENCOUNTER: Initial ACUITY: 1 day PAIN SCALE: 9/10 LOCATION: Lumbar TECHNIQUE: Volumetric scanning of the lumbar spine was performed. Multiplanar reconstructions in the sagittal, coronal and oblique axial planes were performed. Using automated exposure control and adjustment of the mA and/or kV according to patient size, radiation dose was kept as low as reasonably achievable t o obtain optimal diagnostic quality images. DICOM format image data is available electronically for review and comparison. FINDINGS: Sagittal and coronal reconstructions show 6 non-rib lumbar-type vertebral bodies. Partially calcified diffuse disc L2-1 noncalcified diffuse disc at L4-5 and L5 6. There is some encroachment on the spin al canal at both the L4-5 and L5 6 level. Vertebral body heights are maintained without fracture or l isthesis. Multiple sub-centimeters nonobstructing stones in the left renal collecting system. Promine nt 4.8 cm probable right ovarian cyst T12-L1: The thecal sac has a normal diameter. No evidence of disc bulge or protrusion. The neural foramina are patent bilaterally. L1-L2: The thecal sac has a normal diameter. No evidence of disc bulge or protrusion. The neural foramina are patent bilaterally. L2-L3: Mild, diffuse disc bulge is partially calcified. Spinal canal remains adequate. L3-L4: The thecal sac has a normal diameter. No evidence of disc bulge or protrusion. The neural foramina are patent bilaterally. L4-L5: Diffuse disc bulges and ligamentum flavum hypertrophy results in moderately severe central spinal dia nosis. Both neural foramina are adequate. L5-6: Diffuse disc bulge and ligamentum flavum hypertrophy results in moderately severe central spinal sten osis. Both neural foramina are adequate. L6-S1: The thecal sac has a normal diameter. No evidence of disc bulge or protrusion. The neural foramina are patent bilaterally. CONCLUSION: 1. Partially calcified diffuse disc bulge at L2-3 with no significant stenosis. 6 non-rib lumbar-type vertebral bodies. 2. Diffuse disc bulges and posterior element hypertrophy at L4-5 and L5-6 resulting in moderately sev ere central spinal stenosis and may compromise central nerve roots at both levels. 3. Neural foramina. The adequate throughout. No fracture. 4. Multiple nonobstructing subcentimeter calculi in the left renal collecting system. 5. Probable 4.8 cm right ovarian cyst Indio Zayas MD on July 01, 2017 at 15:00 Board Certified Radiologist. This report was verified electronically.
--- NOTE | 2017-07-01 15:18 | RADRPT ---
EXAM DATE/TIME: 07/01/2017 13:54 [facility] COMPARISON: No previous studies available for comparison. INDICATIONS : Fall right hip and back pain RADIATION DOSE: 7.01 CTDIvol (mGy) MEDICAL HISTORY : Seizures. Cardiovascular disease Chronic obstructive pulmonary disease.Hep c SURGICAL HISTORY : None. ENCOUNTER: Initial ACUITY: 1 day PAIN SCALE: 9/10 LOCATION: Right HIP TECHNIQUE: Volumetric scanning of the hip was performed. Using automated exposure control and adjustment of the mA and/or kV according to patient size, radiation dose was kept as low as reasonably achievable to o btain optimal diagnostic quality images. DICOM format image data is available electronically for rev iew and comparison. FINDINGS: BONES: No evidence of fracture. Alignment is within normal limits. JOINTS: No evidence of joint narrowing or effusion. Vacuum joint phenomenon in the SI joints bilaterally. SOFT TISSUES: Muscles, tendons and neurovascular structures are grossly unremarkable. No evidence of mass, organize d fluid collection, or foreign body. There is a 4.6 cm probable right ovarian cyst. CONCLUSION: 1. No fracture. 2. Vacuum joint phenomenon in the SI joints bilaterally. 3. Probable 4.6 cm right ovarian cyst. Indio Zayas MD on July 01, 2017 at 15:13 Board Certified Radiologist. This report was verified electronically.
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
[2017-07-01] MEDS ORDERED: MAGNESIUM HYDROXIDE SUSP 30 ML CUP PO PRN (16:45)
[2017-07-01] MEDS ORDERED: SENNOSIDES 8.6 MG TAB PO PRN (16:45)
[2017-07-01] MEDS ORDERED: NALOXONE HCL 0.4 MG/ML AMP IV PUSH PRN (16:45)
[2017-07-01] MEDS ORDERED: BISACODYL 10 MG SUPP RECTAL PRN (16:45)
[2017-07-01] MEDS ORDERED: LACTULOSE SYRUP 20 GM/30 ML CUP PO PRN (16:45)
[2017-07-01 16:46] VITALS: BP 138/82; PULSE 83; RESP 16; O2SAT 99
[2017-07-01] MEDS ORDERED: ENOXAPARIN SODIUM 40 MG/0.4 ML SYRINGE SQ SCH (17:00)
[2017-07-01] MEDS ORDERED: ACETAMINOPHEN 325 MG TAB PO PRN (17:00)
[2017-07-01] MEDS ORDERED: KETOROLAC TROMETHAMINE 60 MG/2 ML (IM) VIAL IM PRN (17:00)
--- NOTE | 2017-07-01 18:50 | RADRPT ---
EXAM DATE/TIME: 07/01/2017 17:33 [facility] COMPARISON: CT LUMBAR SPINE W/O CONTRAST, July 01, 2017, 13:54. INDICATIONS : Pain. Hx of IV drug user CONTRAST: 12 cc Omniscan (gadodiamide) IV MEDICAL HISTORY : Cardiovascular disease. Chronic obstructive pulmonary disease. SURGICAL HISTORY : Tubal ligation. Appendectomy. ENCOUNTER: Initial ACUITY: 1 day PAIN SCORE: 0/10 LOCATION: lumbar TECHNIQUE: Multiplanar multisequence MRI of the lumbar spine was performed with and without contrast. FINDINGS: The most caudal appearing lumbar vertebra is numbered as L6. The same numbering sequence used for the CT lumbar spine was used for this MR. VERTEBRAE: Homogeneous signal. Normal alignment. CONUS: Normal level and configuration. POST CONTRAST: No abnormal areas of contrast enhancement are seen. T12-L1: The thecal sac has a normal diameter. No evidence of disc bulge or protrusion. The neural foramina are patent bilaterally. L1-L2: The thecal sac has a normal diameter. No evidence of disc bulge or protrusion. The neural foramina are patent bilaterally. L2-L3: The disc demonstrates decreased signal. There is a mild right lateral recess disc protrusion causing mild impression on the anterior right side of the thecal sac. If the stenosis is not seen. The neural foramina are patent bilaterally. L3-L4: There is a mild central disc protrusion causing a mild impression on the thecal sac. The neural fora quynh are patent bilaterally. L4-L5: There is a moderate right lateral recess disc protrusion with an inferiorly directed extruded compone nt causing at least a mild impression on the anterior right side of the thecal sac. The neural forami na are patent bilaterally. There is mild facet hypertrophy. L5-L6: There is a moderate right lateral recess disc protrusion with an inferiorly directed extruded compone nt causing at least a mild impression on the anterior right side of the thecal sac. The neural forami na are patent bilaterally. There is mild facet hypertrophy. L6-S1: There is a moderate central to left paracentral disc protrusion. There continues to be CSF around the nerve roots. The neural foramina are patent. CONCLUSION: 1. No areas of bony edema or suspicious enhancement are seen. 2. Disc protrusions and extrusions at multiple levels as described above. 3. The numbering sequence used for this MRI examination is the same used for the earlier CT of the jumana mbar spine. Bib Monroe MD on July 01, 2017 at 18:37 Board Certified Radiologist. This report was verified electronically.
--- NOTE | 2017-07-01 18:54 | RADRPT ---
EXAM DATE/TIME: 07/01/2017 17:33 [facility] COMPARISON: No previous studies available for comparison. INDICATIONS : Pain. Hx of IV drug use CONTRAST: 12 cc Omniscan (gadodiamide) IV MEDICAL HISTORY : Cardiovascular disease. Chronic obstructive pulmonary disease. SURGICAL HISTORY : Tubal ligation. Appendectomy. ENCOUNTER: Initial ACUITY: 1 day PAIN SCORE: 0/10 LOCATION: Right Hip TECHNIQUE: Multiplanar, multisequence MRI examination was performed without contrast and after the intravenous a dministration of gadolinium. FINDINGS: BONE/CARTILAGE: Bone marrow signal is homogeneous. Articular cartilage signal is within normal limits. LABRUM: Within normal limits. MUSCLES/TENDONS: All of the visualized muscles and tendons are intact. There is increased signal within the distal rig ht gluteal tendon and around the lateral aspect of the greater trochanter on the right. MISCELLANEOUS: No evidence of joint effusion. There is a 3.8 cm right ovarian cyst. Small follicles are also seen at the right ovary. Nabothian cysts are seen at the cervix. POST-CONTRAST: There are no abnormal areas of enhancement on the post-contrast images. CONCLUSION: 1. The bony structures appear normal. The hip joints are normally aligned. 2. Increased signal within the distal right gluteal tendon and around the greater trochanter on the r ight related to some tendinitis and trochanter bursitis. 3. No focal fluid collection or abscess is seen. 4. Right ovarian cyst. Bib Monroe MD on July 01, 2017 at 18:48 Board Certified Radiologist. This report was verified electronically.
[2017-07-01] MEDS: SODIUM CHLOR 0.9% 1000 ML INJ 1,000 ML IV SCH (18:58)
[2017-07-01 19:58] VITALS: BP 133/79; PULSE 73; RESP 18; TEMP 98.3; O2SAT 96
[2017-07-01] MEDS: SODIUM CHLORIDE 0.9% FLUSH 10 ML FLUSH IV FLUSH PRN (20:27)
[2017-07-01] MEDS: SODIUM CHLORIDE 0.9% FLUSH 10 ML FLUSH IV FLUSH SCH (20:27)
[2017-07-01] MEDS: DOCUSATE SODIUM 50 MG/SENNA 8.6 MG TAB PO SCH (20:27)
[2017-07-01] MEDS: KETOROLAC TROMETHAMINE 30 MG/ML (IVP) VIAL IV PUSH PRN (20:28)
[2017-07-01] MEDS ORDERED: GADODIAMIDE PF 287 MG/ML 20 ML VIAL (for RAD MRI) IVCONTRAST ONE (21:25)
[2017-07-01] MEDS ORDERED: GABAPENTIN 400 MG CAP PO ONE (21:30)
[2017-07-01] MEDS ORDERED: clonazePAM 1 MG TAB PO ONE (21:30)
[2017-07-01] MEDS ORDERED: RESP: ALBUTEROL 2.5 MG/IPRATROPIUM 0.5 MG NEB (PRN) NEB (22:15)
[2017-07-02] VITALS: BP 151/82; PULSE 80; RESP 18; TEMP 97.4; O2SAT 98
[2017-07-02] MEDS ORDERED: ONDANSETRON HCL 4 MG/2 ML VIAL IV PUSH PRN (00:30)
[2017-07-02] MEDS: METOCLOPRAMIDE HCL 10 MG/2 ML VIAL IV PUSH PRN ×2 (01:08→09:18)
[2017-07-02] MEDS: SODIUM CHLORIDE 0.9% FLUSH 10 ML FLUSH IV FLUSH PRN (01:09)
[2017-07-02 01:45] VITALS: PULSE 76
[2017-07-02] MEDS: SODIUM CHLOR 0.9% 1000 ML INJ 1,000 ML IV SCH (02:44)
[2017-07-02 04:00] VITALS: BP 103/67; PULSE 83; PULSE 88; RESP 20; TEMP 98.4; O2SAT 99
[2017-07-02 05:32] LABS: AUTOMATED NEUTROPHIL # 5.6 TH/MM3 (1.8-7.7); BASOPHIL % 0.2 % (0.0-2.0); EOSINOPHIL # 0.1 TH/MM3 (0-0.4); HEMATOCRIT 35.8 % (35.0-46.0); HEMOGLOBIN 11.6 GM/DL (11.6-15.3); LYMPH % 9.3 % (9.0-44.0); LYMPHOCYTE # 0.6 TH/MM3 (1.0-4.8); MEAN CELL VOLUME 80.3 FL (80.0-100.0); MEAN CORPUSCULAR HEMOGLOBIN 25.9 PG (27.0-34.0); MEAN CORPUSCULAR HGB CONC 32.3 % (32.0-36.0); MEAN PLATELET VOLUME 9.7 FL (7.0-11.0); MONOCYTE # 0.1 TH/MM3 (0-0.9); NEUT % 87.5 % (16.0-70.0); PLATELET COUNT 187 TH/MM3 (150-450); RED BLOOD COUNT 4.46 MIL/MM3 (4.00-5.30); RED CELL DISTRIBUTION WIDTH 16.3 % (11.6-17.2); WHITE BLOOD COUNT 6.4 TH/MM3 (4.0-11.0)
[2017-07-02 05:52] LABS: C-REACTIVE PROTEIN 1.21 MG/DL (0.00-0.30); CALCIUM 8.3 MG/DL (8.5-10.1); CREATININE 0.87 MG/DL (0.50-1.00)
[2017-07-02 08:00] VITALS: PULSE 87
[2017-07-02] MEDS ORDERED: POTASSIUM CHLORIDE 25 MEQ EFFERVESCENT TAB PO ONE (08:00)
[2017-07-02 08:05] VITALS: BP 112/68; PULSE 77; RESP 16; TEMP 98.7; O2SAT 97
[2017-07-02] MEDS: DOCUSATE SODIUM 50 MG/SENNA 8.6 MG TAB PO SCH (09:00)
[2017-07-02] MEDS ORDERED: GABAPENTIN 300 MG CAP PO SCH (09:00)
[2017-07-02] MEDS: KETOROLAC TROMETHAMINE 30 MG/ML (IVP) VIAL IV PUSH PRN (09:18)
[2017-07-02] MEDS: SODIUM CHLORIDE 0.9% FLUSH 10 ML FLUSH IV FLUSH SCH (09:19)
[2017-07-02] MEDS ORDERED: IBUP-232 PO (09:50)
--- NOTE | 2017-07-02 09:50 | HHI.DCPOC ---
Discharge Care Plan Diagnosis: (1) Trochanteric bursitis (2) Polysubstance abuse Goals to Promote Your Health * To prevent worsening of your condition and complications * To maintain your health at the optimal level Directions to Meet Your Goals Take your medications as prescribed Follow your dietary instruction Follow activity as directed Keep your appointments as scheduled Take your immunizations and boosters as scheduled If your symptoms worsen call your PCP, if no PCP go to Urgent Care Center or Emergency Room Smoking is Dangerous to Your Health. Avoid second hand smoke Call the 24-hour hour crisis hotline for domestic abuse at Holland Castro MD R3 July 02, 2017 09:50
[2017-07-02] MEDS ORDERED: VIST50CA PO (10:01)
[2017-07-02] MEDS ORDERED: ZYPR15TA PO (10:01)
[2017-07-02] MEDS ORDERED: GABA600T PO (10:01)
[2017-07-02] MEDS ORDERED: hydrOXYzine PAMOATE 25 MG CAP PO ONE (11:00)
--- NOTE | 2017-07-02 15:08 | HHI.FPPN ---
Addendum to progress note ADDENDUM Reason for addendum: Additonal documentation Additional information Please see resident H/P for further documentation regarding the patients history. Patient was admitted to R/O discitis or infectious process with her right hip pain with her h/o IVDU. Patient reports continued pain into the right hip over the greater trochanter. Otherwise she reports her anxiety level is high as she did not receive her morning vistaril. She reports no Fevers/ no chills, no CP, no SOB. Her breakfast tray is empty as she tolerated her diet this am. Vital Signs Date Time Temp Pulse Resp B/P (MAP) Pulse Ox O2 Delivery O2 Flow Rate FiO2 07/02/17 08:05 98.7 77 16 112/68 (83) 97 07/01/17 16:46 Room Air Laboratory Tests Test 07/01/17 20:30 07/02/17 04:11 Urine Opiates Screen POS Urine Barbiturates Screen NEG Urine Amphetamines Screen NEG Urine Benzodiazepines Screen NEG Urine Cocaine Screen POS Urine Cannabinoids Screen POS White Blood Count 6.4 TH/MM3 Red Blood Count 4.46 MIL/MM3 Hemoglobin 11.6 GM/DL Hematocrit 35.8 % Mean Corpuscular Volume 80.3 FL Mean Corpuscular Hemoglobin 25.9 PG Mean Corpuscular Hemoglobin Concent 32.3 % Red Cell Distribution Width 16.3 % Platelet Count 187 TH/MM3 Mean Platelet Volume 9.7 FL Neutrophils (%) (Auto) 87.5 % Lymphocytes (%) (Auto) 9.3 % Monocytes (%) (Auto) 2.0 % Eosinophils (%) (Auto) 1.0 % Basophils (%) (Auto) 0.2 % Neutrophils # (Auto) 5.6 TH/MM3 Lymphocytes # (Auto) 0.6 TH/MM3 Monocytes # (Auto) 0.1 TH/MM3 Eosinophils # (Auto) 0.1 TH/MM3 Basophils # (Auto) 0.0 TH/MM3 CBC Comment DIFF FINAL Differential Comment Blood Urea Nitrogen 13 MG/DL Creatinine 0.87 MG/DL Random Glucose 90 MG/DL Calcium Level 8.3 MG/DL Sodium Level 144 MEQ/L Potassium Level 3.1 MEQ/L Chloride Level 109 MEQ/L Carbon Dioxide Level 28.0 MEQ/L Anion Gap 7 MEQ/L Estimat Glomerular Filtration Rate 70 ML/MIN C-Reactive Protein 1.21 MG/DL Current Medications Medications (Trade) Dose Ordered Sig/Tristan Route PRN Reason Start Time Stop Time Status Last Admin Dose Admin Ketorolac Tromethamine (Toradol Inj) 30 mg ONCE ONCE IV PUSH 07/01/17 13:45 07/01/17 13:47 DC 07/01/17 14:09 Gabapentin (Neurontin) 1,200 mg ONCE ONCE PO 07/01/17 13:45 07/01/17 13:47 DC 07/01/17 14:09 Last Impressions Lumbar Spine MRI 07/01/17 0000 Signed Impressions: Service Date/Time: Saturday, July 01, 2017 17:33 - CONCLUSION: 1. No areas of bony edema or suspicious enhancement are seen. 2. Disc protrusions and extrusions at multiple levels as described above. 3. The numbering sequence used for this MRI examination is the same used for the earlier CT of the lumbar spine. Bib Monroe MD Lumbar Spine CT 07/01/17 0000 Signed Impressions: Service Date/Time: Saturday, July 01, 2017 13:54 - CONCLUSION: 1. Partially calcified diffuse disc bulge at L2-3 with no significant stenosis. 6 non-rib lumbar-type vertebral bodies. 2. Diffuse disc bulges and posterior element hypertrophy at L4-5 and L5-6 resulting in moderately severe central spinal stenosis and may compromise central nerve roots at both levels. 3. Neural foramina. The adequate throughout. No fracture. 4. Multiple nonobstructing subcentimeter calculi in the left renal collecting system. 5. Probable 4.8 cm right ovarian cyst Indio Zayas MD Lower Extremity CT 07/01/17 0000 Signed Impressions: Service Date/Time: Saturday, July 01, 2017 13:54 - CONCLUSION: 1. No fracture. 2. Vacuum joint phenomenon in the SI joints bilaterally. 3. Probable 4.6 cm right ovarian cyst. Indio Zayas MD Hip and Pelvis X-Ray 07/01/17 0000 Signed Impressions: Service Date/Time: Saturday, July 01, 2017 13:23 - CONCLUSION: Negative for fracture or dislocation. Follow up in 7-10 days is suggested if symptoms persist. Shon Alvarado MD FACR Hip MRI 07/01/17 0000 Signed Impressions: Service Date/Time: Wednesday, July 01, 2017 17:33 - CONCLUSION: 1. The bony structures appear normal. The hip joints are normally aligned. 2. Increased signal within the distal right gluteal tendon and around the greater trochanter on the right related to some tendinitis and trochanter bursitis. 3. No focal fluid collection or abscess is seen. 4. Right ovarian cyst. Bib Monroe MD O. CONSTITUTIONAL/GEN: disheveled, NAD, unkempt, unclean hands and feet EYES: conjunctiva normal, PERRLA, anicteric ENT: oral exam -- very poor dentition with teeth mostly all ground down. NECK: thyroid midline, carotids symmetrical. LUNGS: clear A-P, respiratory effort is normal. CARDIOVASCULAR: RR without murmur or gallop. No significant edema. GI/ABD: soft without masses, without organomegaly. : no CVA tenderness NEURO: No focal deficits. SKIN: color normal, no rashes noted. HEME/LYMPH: no bruising, petechia or significant adenopathy MUSC: back is normal in appearance. Extremities are normal in appearance with track pickering in the arms bilateral, she is tender over the greater trochanter on the right. She is mobile and able to rotate and move the right hip. PSYCH/MENTAL STATUS: Alert and oriented x 3. 1. Right hip pain -- MRI spine and hip reviewed. No evidence of septic/ infectious process -- Appears to be trochanteric bursitis. Likely due to her injury that she described. Elevated CRP on admission has already declined without any treatment at all. DWPT that this is managed as an outpatient with anti-inflammatory medication. 2. IVDU -- no signs of infection, septic emboli or discitis. Rec no further IVDU. 3. PSych -- she has fu with [facility] _- will provider her with one week scripts until her next appointment with psychiatry. Plan for likely dc today with fu with [facility] and PCP. Patient seen and dw the resident team - Dr. Barnett, Dr. Barron, Dr. Gabrielle Maldonado,Latha Diamond MD July 02, 2017 15:08
== END 2017-07-02 18:38 | disposition home or self-care (01) | DRG 558 ==
LOC: NEPE 12:18 → NEDA 15:23 → N04A 19:39
PROVIDERS: ADMIT Family Medicine; ATTEND Family Medicine
DX: M70.61 Trochanteric bursitis, right hip (principal); J44.9 Chronic obstructive pulmonary disease, unspecified; W03.XXXA Other fall on same level due to collision with another person, initial encounter; F11.90 Opioid use, unspecified, uncomplicated; F41.0 Panic disorder [episodic paroxysmal anxiety]; M54.5 Low back pain; G89.29 Other chronic pain; F17.210 Nicotine dependence, cigarettes, uncomplicated
CPT/HCPCS: 72131; 72158; 73502; 73700; 73723; 80048; 80053; 80307; 85025; 85652; 86140; A9579; J1650; J1885; J2765; J7030; Q0177

== ENCOUNTER 2017-07-17 07:05 | Observation (INO) | payer SELFPAY ==
[~2017-07-17] VITALS: Ht 167.6 cm; Wt 60.0 kg
[2017-07-17] VITALS (11 sets, daily range): BP systolic 138–183; BP diastolic 68–101; PULSE 50–86; RESP 12–18; TEMP 96.3–99; O2SAT 97–100
[~2017-07-17 07:05] MED LIST changes: +IBUP-232 PO
[2017-07-17] MEDS ORDERED: NALOXONE HCL 2 MG/2 ML VIAL ONE (07:57)
[2017-07-17] MEDS ORDERED: SODIUM CHLOR 0.9% 1000 ML INJ 1,000 ML IV SCH (08:00)
[2017-07-17] MEDS ORDERED: SODIUM CHLORIDE 0.9% FLUSH 10 ML FLUSH IV FLUSH PRN ×2 (08:00→10:15)
--- NOTE | 2017-07-17 08:07 | PD ---
HPI Chief Complaint: Altered mental status Time Seen by Provider: 08:00 Travel History International Travel<30 days: No Contact w/Intl Traveler<30days: No Traveled to known affect area: No History of Present Illness HPI The patient is a 47-year-old female who presents to the emergency department via EMS for altered mental status. According to EMS he received a call for altered mental status and possible overdose on Vicodin. EMS states that the patient apparently was involved in argument with her boyfriend earlier tonight and possibly ingested 7-8 Vicodin, however, the boyfriend was unsure what medications the patient may have overdosed on. According to EMS the boyfriend and others were holding the patient upright when they arrived, however , they did note the patient had dirt over the entire body. The also noted the patient had a marked to the anterior aspect of the neck which was red and circular. They state the patient was administered Narcan with minimal response , was noted at pupils over 2 mm bilateral. They also stated the patient had a heart rate that went down into the 30s, the patient was administered atropine which brought her heart rate up as well as her blood pressure up. Upon arrival the patient is minimally arousable to pain, has a gag reflex, but is unable to provide any information. PFSH Past Medical History Arthritis: No Asthma: Yes Autoimmune Disease: No Blood Disorders: No Bipolar Disorder: Yes Anxiety: Yes Depression: Yes Heart Rhythm Problems: No Cancer: Yes (CERVICAL) Cardiac Catheterization: No Cardiovascular Problems: Yes High Cholesterol: No Chest Pain: No Congestive Heart Failure: No COPD: Yes Cerebrovascular Accident: Yes (TIA) Diabetes: No Diminished Hearing: No Endocrine: No Gastrointestinal Disorders: Yes (COLITIS) GERD: Yes Genitourinary: Yes Headaches: No Hepatitis: Yes (C) Hiatal Hernia: No Heparin Induced Thrombocytopen: No Herniated Disk: Yes Hypertension: No Immune Disorder: No Implanted Vascular Access Dvce: No Insomnia: Yes Kidney Stones: No Musculoskeletal: Yes Neurologic: Yes Psychiatric: Yes Reproductive: No Respiratory: Yes Immunizations Current: Yes Migraines: Yes Myocardial Infarction: Yes (2011) Renal Failure: No Seizures: Yes Sickle Cell Disease: No Sleep Apnea: No Thyroid Disease: No Ulcer: No PNEUMOCCOCAL Vaccine (Year): 2 Menopausal: Yes : 10 Para: 6 Miscarriage: 3 : 1 Ectopic : Yes (1994) Ovarian Cysts: Yes Dilation and Curettage (D&C): Yes Tubal Ligation: Yes Past Surgical History AICD: No Appendectomy: Yes Arteriovenous Shunt: No Cardiac Surgery: No Coronary Artery Bypass Graft: No Ear Surgery: No Endocrine Surgery: No Eye Surgery: No Genitourinary Surgery: No Gynecologic Surgery: Yes Insulin Pump: No Joint Replacement: No Oral Surgery: No Pacemaker: No Thoracic Surgery: No Social History Alcohol Use: No Tobacco Use: Yes (02/24 PPD) Substance Use: Yes (IV DRUGS- DILAUDID, MORPHINE) Allergies-Medications (Allergen,Severity, Reaction): Coded Allergies: Sulfa (Sulfonamide Antibiotics) (Verified Allergy, Severe, Rash, 06/16/17) magnesium (Verified Adverse Reaction, Unknown, PRUITIC RASH, 06/16/17) magnesium sulfate (Verified Adverse Reaction, Unknown, PRUITIC RASH, ) prochlorperazine (Verified Adverse Reaction, Unknown, ANGINA, 06/16/17) terbutaline (Verified Adverse Reaction, Unknown, HEART RATE ELEVATES, 06/16) Reported Meds & Prescriptions Reported Meds & Active Scripts Active Zyprexa (Olanzapine) 15 Mg Tab 15 Mg PO HS Vistaril (Hydroxyzine Pamoate) 50 Mg Cap 100 Mg PO BID Gabapentin 600 Mg Tab 1,200 Mg PO BID Ibuprofen 600 Mg Tab 600 Mg PO Q8H PRN Reported Klonopin (Clonazepam) 1 Mg Tab 1 Mg PO TID Review of Systems ROS Limitations: Clinical Condition, Altered Mental Status Except as stated in HPI: all other systems reviewed are Neg Neurologic: Positive: Change in Mentation Psychiatric: Positive: Substance Abuse Physical Exam Exam Limitations: Clinical Condition, Altered Mental Status Narrative GENERAL: 47-year-old female who appears older than her stated age. Response to pain, gag reflex positive, unable to provide any information. SKIN: Focused skin assessment warm/dry. Dirt over the entire body noted. Self- inflicted transverse hesitation pickering noted on the volar aspect of the wrist bilaterally. HEAD: Atraumatic. Normocephalic. EYES: Pupils equal and round. 2 mm bilateral, disconjugate gaze. ENT: No nasal bleeding or discharge. Mucous membranes pink and moist. Nasal trumpet in place. NECK: Trachea midline. No JVD. Erythematous reza on the anterior aspect of the neck which goes from the left sternocleidomastoid to the right sternocleidomastoid, questionable ligature reza. CARDIOVASCULAR: Regular rate and rhythm. No murmur appreciated. Heart rate in the 80s. RESPIRATORY: No accessory muscle use. Clear to auscultation. Breath sounds equal bilaterally. Respiratory rate 12. GASTROINTESTINAL: Abdomen soft, non-tender, nondistended. MUSCULOSKELETAL: No obvious deformities. No clubbing. No cyanosis. No edema. Back: No obvious step-off over the thoracic or lumbar vertebrae. NEUROLOGICAL: Eyes closed, nonverbal, responds to pain. Positive gag reflex. PSYCHIATRIC: Unable to obtain. Data Data Last Documented VS Vital Signs Date Time Temp Pulse Resp B/P (MAP) Pulse Ox O2 Delivery O2 Flow Rate FiO2 07/17/17 08:56 96.3 75 12 183/97 (125) 100 Nasal Cannula 2.00 Orders Orders Naloxone Inj (Narcan Inj) (07/17/17 07:57) Electrocardiogram (07/17/17 08:00) Ammonia (07/17/17 08:00) Complete Blood Count With Diff (07/17/17 08:00) Comprehensive Metabolic Panel (07/17/17 08:00) Creatine Kinase (Cpk) (07/17/17 08:00) Prothrombin Time / Inr (Pt) (07/17/17 08:00) Act Partial Throm Time (Ptt) (07/17/17 08:00) Troponin I (07/17/17 08:00) Thyroid Stimulating Hormone (07/17/17 08:00) Urinalysis - C+S If Indicated (07/17/17 08:00) Lactic Acid Sepsis Protocol (07/17/17 08:00) Arterial Blood Gas (Abg) (07/17/17 08:00) Chest, Single Ap (07/17/17 08:00) Ct Brain W/O Iv Contrast(Rout) (07/17/17 08:00) Blood Glucose (07/17/17 08:00) Ecg Monitoring (07/17/17 08:00) Iv Access Insert/Monitor (07/17/17 08:00) Cath For Specimen (07/17/17 08:00) Oximetry (07/17/17 08:00) Sodium Chloride 0.9% Flush (Ns Flush) (07/17/17 08:00) Sodium Chlor 0.9% 1000 Ml Inj (Ns 1000 M (07/17/17 08:00) Drug Screen, Random Urine (07/17/17 08:00) Alcohol (Ethanol) (07/17/17 08:00) Tylenol (Acetaminophen) (07/17/17 08:00) Salicylates (Aspirin) (07/17/17 08:00) Ct Cerv Spine W/O Contrast (07/17/17 ) Ed Urine Pregnancytest Poc (07/17/17 08:46) Naloxone Inj (Narcan Inj) (07/17/17 09:45) Place In Observation (07/17/17 ) Vital Signs (Adult) Q4H (07/17/17 10:13) Sodium Chlor 0.9% 1000 Ml Inj (Ns 1000 M (07/17/17 10:13) Sodium Chloride 0.9% Flush (Ns Flush) (07/17/17 10:15) Sodium Chloride 0.9% Flush (Ns Flush) (07/17/17 21:00) Metoclopramide Inj (Reglan Inj) (07/17/17 10:15) Basic Metabolic Panel (Bmp) (07/18/17 06:00) Complete Blood Count With Diff (07/18/17 06:00) Pt Request For Service (07/17/17 10:13) Case Management Consult (07/17/17 10:13) Scd Bilateral/Knee High MICHELLE.BID (07/17/17 10:13) Len Bilateral/Knee High MICHELLE.QSHIFT (07/17/17 10:13) Naloxone Inj (Narcan Inj) (07/17/17 10:15) Docusate Sodium-Senna (Ramona-Colace) (07/17/17 21:00) Magnesium Hydroxide Liq (Milk Of Magnesi (07/17/17 10:15) Sennosides (Senokot) (07/17/17 10:15) Bisacodyl Supp (Dulcolax Supp) (07/17/17 10:15) Lactulose Liq (Lactulose Liq) (07/17/17 10:15) Admit Order (Ed Use Only) (07/17/17 10:14) Labs Laboratory Tests Test 07/17/17 08:20 07/17/17 08:25 07/17/17 09:05 Urine Color YELLOW Urine Turbidity HAZY Urine pH 6.5 Urine Specific [place] 1.019 Urine Protein 30 mg/dL Urine Glucose (UA) NEG mg/dL Urine Ketones 10 mg/dL Urine Occult Blood NEG Urine Nitrite NEG Urine Bilirubin NEG Urine Urobilinogen 2.0 MG/DL Urine Leukocyte Esterase TRACE Urine RBC 1 /hpf Urine WBC 2 /hpf Urine Squamous Epithelial Cells <1 /hpf Urine Amorphous Sediment MOD Urine Mucus FEW /lpf Microscopic Urinalysis Comment CULT NOT INDICATED Blood Gas Puncture Site RT RADIAL Blood Gas Patient Temperature 98.6 Blood Gas HCO3 27 mmol/L Blood Gas Base Excess 2.0 mmol/L Blood Gas Oxygen Saturation 88 % Arterial Blood pH 7.38 Arterial Blood Partial Pressure CO2 46 mmHg Arterial Blood Partial Pressure O2 73 mmHG Arterial Blood Oxygen Content 14.5 Vol % Arterial Blood Carboxyhemoglobin 7.0 % Arterial Blood Methemoglobin 0.6 % Blood Gas Hemoglobin 11.7 G/DL Blood Gas Inspired Oxygen 21 % Blood Urea Nitrogen 15 MG/DL Creatinine 1.01 MG/DL Random Glucose 108 MG/DL Total Protein 8.4 GM/DL Albumin 3.8 GM/DL Calcium Level 8.9 MG/DL Alkaline Phosphatase 116 U/L Aspartate Amino Transf (AST/SGOT) 38 U/L Alanine Aminotransferase (ALT/SGPT) 19 U/L Total Bilirubin 0.5 MG/DL Sodium Level 143 MEQ/L Potassium Level 3.9 MEQ/L Chloride Level 105 MEQ/L Carbon Dioxide Level 26.5 MEQ/L Anion Gap 12 MEQ/L Estimat Glomerular Filtration Rate 59 ML/MIN Total Creatine Kinase 144 U/L Troponin I LESS THAN 0.02 NG/ML Thyroid Stimulating Hormone 3rd Gen 3.110 uIU/ML Salicylates Level LESS THAN 1.7 MG/DL Urine Opiates Screen POS Acetaminophen Level LESS THAN 2.0 MCG/ML Urine Barbiturates Screen NEG Urine Amphetamines Screen NEG Urine Benzodiazepines Screen NEG Urine Cocaine Screen POS Urine Cannabinoids Screen POS Ethyl Alcohol Level LESS THAN 3 MG/DL Lactic Acid Level 1.2 mmol/L Ammonia 12 MCMOL/L White Blood Count 7.1 TH/MM3 Red Blood Count 5.02 MIL/MM3 Hemoglobin 12.7 GM/DL Hematocrit 40.1 % Mean Corpuscular Volume 79.8 FL Mean Corpuscular Hemoglobin 25.3 PG Mean Corpuscular Hemoglobin Concent 31.7 % Red Cell Distribution Width 16.1 % Platelet Count 267 TH/MM3 Mean Platelet Volume 9.2 FL Neutrophils (%) (Auto) 73.0 % Lymphocytes (%) (Auto) 20.0 % Monocytes (%) (Auto) 6.1 % Eosinophils (%) (Auto) 0.3 % Basophils (%) (Auto) 0.6 % Neutrophils # (Auto) 5.2 TH/MM3 Lymphocytes # (Auto) 1.4 TH/MM3 Monocytes # (Auto) 0.4 TH/MM3 Eosinophils # (Auto) 0.0 TH/MM3 Basophils # (Auto) 0.0 TH/MM3 CBC Comment DIFF FINAL Differential Comment Prothrombin Time 10.6 SEC Prothromb Time International Ratio 1.0 RATIO Activated Partial Thromboplast Time 26.6 SEC MDM Medical Decision Making Medical Screen Exam Complete: Yes Emergency Medical Condition: Yes Medical Record Reviewed: Yes Interpretation(s) EKG reveals normal sinus rhythm with a rate of 78, left ventricular hypertrophy by criteria. Last Impressions Head CT 07/17/17 0800 Signed Impressions: CONCLUSION: 1. No acute intracranial abnormality. Chest X-Ray 07/17/17 0800 Signed Impressions: CONCLUSION: 1. No acute cardiopulmonary disease. Cervical Spine CT 07/17/17 0000 Impressions: CONCLUSION: No acute bony injury in the cervical spine Laboratory Tests Test 07/17/17 08:20 07/17/17 08:25 07/17/17 09:05 Urine Color YELLOW Urine Turbidity HAZY Urine pH 6.5 Urine Specific [place] 1.019 Urine Protein 30 mg/dL Urine Glucose (UA) NEG mg/dL Urine Ketones 10 mg/dL Urine Occult Blood NEG Urine Nitrite NEG Urine Bilirubin NEG Urine Urobilinogen 2.0 MG/DL Urine Leukocyte Esterase TRACE Urine RBC 1 /hpf Urine WBC 2 /hpf Urine Squamous Epithelial Cells <1 /hpf Urine Amorphous Sediment MOD Urine Mucus FEW /lpf Microscopic Urinalysis Comment CULT NOT INDICATED Blood Gas Puncture Site RT RADIAL Blood Gas Patient Temperature 98.6 Blood Gas HCO3 27 mmol/L Blood Gas Base Excess 2.0 mmol/L Blood Gas Oxygen Saturation 88 % Arterial Blood pH 7.38 Arterial Blood Partial Pressure CO2 46 mmHg Arterial Blood Partial Pressure O2 73 mmHG Arterial Blood Oxygen Content 14.5 Vol % Arterial Blood Carboxyhemoglobin 7.0 % Arterial Blood Methemoglobin 0.6 % Blood Gas Hemoglobin 11.7 G/DL Blood Gas Inspired Oxygen 21 % Blood Urea Nitrogen 15 MG/DL Creatinine 1.01 MG/DL Random Glucose 108 MG/DL Total Protein 8.4 GM/DL Albumin 3.8 GM/DL Calcium Level 8.9 MG/DL Alkaline Phosphatase 116 U/L Aspartate Amino Transf (AST/SGOT) 38 U/L Alanine Aminotransferase (ALT/SGPT) 19 U/L Total Bilirubin 0.5 MG/DL Sodium Level 143 MEQ/L Potassium Level 3.9 MEQ/L Chloride Level 105 MEQ/L Carbon Dioxide Level 26.5 MEQ/L Anion Gap 12 MEQ/L Estimat Glomerular Filtration Rate 59 ML/MIN Total Creatine Kinase 144 U/L Troponin I LESS THAN 0.02 NG/ML Thyroid Stimulating Hormone 3rd Gen 3.110 uIU/ML Salicylates Level LESS THAN 1.7 MG/DL Urine Opiates Screen POS Acetaminophen Level LESS THAN 2.0 MCG/ML Urine Barbiturates Screen NEG Urine Amphetamines Screen NEG Urine Benzodiazepines Screen NEG Urine Cocaine Screen POS Urine Cannabinoids Screen POS Ethyl Alcohol Level LESS THAN 3 MG/DL Lactic Acid Level 1.2 mmol/L Ammonia 12 MCMOL/L White Blood Count 7.1 TH/MM3 Red Blood Count 5.02 MIL/MM3 Hemoglobin 12.7 GM/DL Hematocrit 40.1 % Mean Corpuscular Volume 79.8 FL Mean Corpuscular Hemoglobin 25.3 PG Mean Corpuscular Hemoglobin Concent 31.7 % Red Cell Distribution Width 16.1 % Platelet Count 267 TH/MM3 Mean Platelet Volume 9.2 FL Neutrophils (%) (Auto) 73.0 % Lymphocytes (%) (Auto) 20.0 % Monocytes (%) (Auto) 6.1 % Eosinophils (%) (Auto) 0.3 % Basophils (%) (Auto) 0.6 % Neutrophils # (Auto) 5.2 TH/MM3 Lymphocytes # (Auto) 1.4 TH/MM3 Monocytes # (Auto) 0.4 TH/MM3 Eosinophils # (Auto) 0.0 TH/MM3 Basophils # (Auto) 0.0 TH/MM3 CBC Comment DIFF FINAL Differential Comment Differential Diagnosis Differential diagnosis includes closed head injury, hypoxic event, polysubstance abuse, drug ingestion, opiate overdose, strangulation, metabolic encephalopathy, intracranial hemorrhage, cervical fracture, electrolyte abnormality. Narrative Course IV was established, labs are drawn and sent, and the patient was placed on cardiac telemetry monitoring and continuous pulse oximetry monitoring. EKG was ordered and interpreted. Stat CT of the brain and cervical spine was obtained. The patient was administered Narcan 2 mg intravenously with no effect on the patient's mental status. Salicylate level and acetaminophen level were sent to lab. Chest x-ray was obtained. Bedside urine test was negative. The patient is reevaluated at 8:47 AM. She still has a gag reflex, however, does not open her eyes or respond to verbal stimuli. Mild localization of pain. The patient's carboxyhemoglobin level was noted to be elevated at 7, the patient was placed on oxygen via nasal cannula [address] of the brain and cervical spine are unremarkable. Chest x-ray is negative. Tox screen is positive for opiates, cocaine, and cannabinoids. Lactic acid and ammonia are unremarkable. Otherwise, labs are unremarkable. The patient was reassessed at 9:38 AM, she still has a gag reflex, does withdrawal to pain with gag reflex, but does not awaken to verbal stimuli. Therefore, patient will be 23 hour observation for altered mental status and drug intoxication. The on-call medical service was paged for admission. Physician Communication Physician Communication I discussed the patient with Dr. Rodgers who agrees with admission. Diagnosis Primary Impression: Altered mental status Qualified Codes: R40.0 - Somnolence Additional Impressions: Drug intoxication Qualified Codes: F19.929 - Other psychoactive substance use, unspecified with intoxication, unspecified Substance abuse Admitting Information Admitting Physician Requests: Admit Condition: Stable Mainor Pereira MD July 17, 2017 08:07
[2017-07-17 08:48] LABS: AMORPHOUS SEDIMENT, URINE MOD; BILIRUBIN, URINE NEG (NEG); BLOOD, URINE NEG (NEG); GLUCOSE,URINE NEG (NEG); KETONE, URINE 10 mg/dL (NEG); MUCUS URINE FEW /lpf (OCC); NITRITE,URINE NEG (NEG); PH, URINE 6.5 (5.0-8.5); SQUAMOUS EPITHELIAL CELL URINE <1 /hpf (0-5); URINE COLOR YELLOW (YELLW/STRAW); URINE LEUKOCYTE ESTERASE TRACE (NEG)
--- NOTE | 2017-07-17 08:56 | RADRPT ---
EXAM DATE: 07/17/2017 8:46 AM EDT AGE/SEX: 47 years / Female INDICATIONS: Altered mental status, ligature-like pickering on neck. CLINICAL DATA: This is the patient's initial encounter. Patient reports that signs and symptoms have been present for 1 day and indicates a pain score of Nonresponsive. MEDICAL/SURGICAL HISTORY: Non-responsive. Non-responsive. RADIATION DOSE: 16.75 CTDI (mGy) COMPARISON: [facility] [place], CT BRAIN W/O CONTRAST, 12/14/2016. . TECHNIQUE: CT of the head without contrast. Using automated exposure control and adjustment of the mA and/or kV according to patient size, radiation dose was kept as low as reasonably achievable to ob tain optimal diagnostic quality images. FINDINGS: Cerebrum: The ventricles are normal for age. No evidence of midline shift, mass lesion, hemorrhage or acute infarction. No extraaxial fluid collections are seen. Posterior Fossa: The cerebellum and brainstem are intact. The 4th ventricle is midline. The cerebe llopontine angle is unremarkable. Extracranial: The visualized portion of the orbits is intact. Skull: The calvaria is intact. No evidence of skull fracture. CONCLUSION: 1. No acute intracranial abnormality. Electronically signed by: Clint Conklin MD 07/17/2017 8:54 AM EDT
--- NOTE | 2017-07-17 08:57 | RADRPT ---
EXAM DATE: 07/17/2017 8:49 AM EDT AGE/SEX: 47 years / Female INDICATIONS: Patient found unresponsive. CLINICAL DATA: This is the patient's initial encounter. Patient reports that signs and symptoms have been present for 1 day and indicates a pain score of Nonresponsive. MEDICAL/SURGICAL HISTORY: Non-responsive. Non-responsive. [place] [facility] [place]. . FINDINGS: A single AP view of the chest demonstrates the lungs to be symmetrically aerated without evidence of mass, infiltrate or effusion. The cardiomediastinal contours are unremarkable. Osseous structures a re intact. CONCLUSION: 1. No acute cardiopulmonary disease. Electronically signed by: Clint Conklin MD 07/17/2017 8:56 AM EDT
[2017-07-17 09:06] LABS: ACETAMINOPHEN LESS THAN 2.0 MCG/ML (10.0-30.0); ALBUMIN 3.8 GM/DL (3.4-5.0); ALKALINE PHOSPHATASE 116 U/L (45-117); ALT (GPT) 19 U/L (10-53); AST (GOT) 38 U/L (15-37); BICARBONATE 26.5 MEQ/L (21.0-32.0); BLOOD UREA NITROGEN 15 MG/DL (7-18); CALCIUM 8.9 MG/DL (8.5-10.1); CHLORIDE 105 MEQ/L (98-107); CREATININE 1.01 MG/DL (0.50-1.00); GLOMERULAR FILTRATION RATE 59 ML/MIN (>89); GLUCOSE,RANDOM 108 MG/DL (74-106); SODIUM (NA) 143 MEQ/L (136-145); TOTAL BILIRUBIN ADULT 0.5 MG/DL (0.2-1.0); TOTAL PROTEIN 8.4 GM/DL (6.4-8.2); TROPONIN I LESS THAN 0.02 NG/ML (0.02-0.05)
[2017-07-17 09:34] LABS: AUTOMATED NEUTROPHIL # 5.2 TH/MM3 (1.8-7.7); BASOPHIL % 0.6 % (0.0-2.0); EOSINOPHIL % 0.3 % (0.0-4.0); HEMATOCRIT 40.1 % (35.0-46.0); HEMOGLOBIN 12.7 GM/DL (11.6-15.3); LYMPHOCYTE # 1.4 TH/MM3 (1.0-4.8); MEAN CELL VOLUME 79.8 FL (80.0-100.0); MEAN CORPUSCULAR HEMOGLOBIN 25.3 PG (27.0-34.0); MEAN CORPUSCULAR HGB CONC 31.7 % (32.0-36.0); MEAN PLATELET VOLUME 9.2 FL (7.0-11.0); MONO % 6.1 % (0.0-8.0); MONOCYTE # 0.4 TH/MM3 (0-0.9); PLATELET COUNT 267 TH/MM3 (150-450); RED BLOOD COUNT 5.02 MIL/MM3 (4.00-5.30); RED CELL DISTRIBUTION WIDTH 16.1 % (11.6-17.2); WHITE BLOOD COUNT 7.1 TH/MM3 (4.0-11.0)
--- NOTE | 2017-07-17 09:34 | RADRPT ---
EXAM DATE: 07/17/2017 8:49 AM EDT AGE/SEX: 47 years / Female INDICATIONS: Altered mental status, ligature-like pickering on neck. CLINICAL DATA: This is the patient's initial encounter. Patient reports that signs and symptoms have been present for 1 day and indicates a pain score of Nonresponsive. MEDICAL/SURGICAL HISTORY: Non-responsive. Non-responsive. RADIATION DOSE: 56.35 CTDI (mGy) COMPARISON: No prior [facility] exams available for comparison. TECHNIQUE: Contiguous axial images were obtained using helical multirow detector technique. The vol umetric data was post-processed with multiplanar reconstruction in oblique axial, sagittal, and coron al planes. Using automated exposure control and adjustment of the mA and/or kV according to patient s ize, radiation dose was kept as low as reasonably achievable to obtain optimal diagnostic quality irena ges. FINDINGS: Cervical spine alignment is satisfactory. There is no evidence of cervical spine fracture. No bony ca nal or foraminal compromise is noted. There are small undulating disc protrusions at multiple levels, most conspicuously at C4-5, C5-6 and C6-7. There is no evidence of paraspinal mass or hematoma. CONCLUSION: No acute bony injury in the cervical spine Electronically signed by: Bib Bell MD 07/17/2017 9:33 AM EDT
[2017-07-17 09:41] LABS: PROTHROMBIN TIME - PATIENT 10.6 SEC (9.8-11.6)
[2017-07-17] MEDS ORDERED: NALOXONE HCL 2 MG/2 ML VIAL IV PUSH ONE (09:45)
[2017-07-17] MEDS ORDERED: SENNOSIDES 8.6 MG TAB PO PRN (10:15)
[2017-07-17] MEDS ORDERED: NALOXONE HCL 0.4 MG/ML AMP IV PUSH PRN (10:15)
[2017-07-17] MEDS ORDERED: LACTULOSE SYRUP 20 GM/30 ML CUP PO PRN (10:15)
[2017-07-17] MEDS ORDERED: MAGNESIUM HYDROXIDE SUSP 30 ML CUP PO PRN (10:15)
[2017-07-17] MEDS ORDERED: BISACODYL 10 MG SUPP RECTAL PRN (10:15)
[2017-07-17] MEDS ORDERED: METOCLOPRAMIDE HCL 10 MG/2 ML VIAL IV PUSH PRN ×2 (10:15→17:00)
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
[2017-07-17] MEDS: SODIUM CHLOR 0.9% 1000 ML INJ 1,000 ML IV SCH ×2 (10:53→20:13)
[2017-07-17] MEDS ORDERED: ATROPINE SULFATE 1 MG/ML VIAL IV PUSH PRN (13:00)
[2017-07-17] MEDS ORDERED: METOCLOPRAMIDE HCL 10 MG/2 ML VIAL IV PUSH ONE (17:00)
--- NOTE | 2017-07-17 18:02 | EKG ---
Date Performed: 07/17/2017 Time Performed: 08:16:44 PTAGE: 47 years EKG: Sinus rhythm POSSIBLE LEFT ATRIAL ENLARGEMENT POSSIBLE LEFT VENTRICULAR HYPERTROPHY NONSPECIFIC T-WAVE ABNORMALIT Y ABNORMAL ECG Since the PREVIOUS TRACING , no significant change noted PREVIOUS TRACIN03/22/2017 13.21 DOCTOR: Catrachita Kingston Interpretating Date/Time 07/17/2017 17:58:25
[2017-07-17] MEDS: DOCUSATE SODIUM 50 MG/SENNA 8.6 MG TAB PO SCH (21:00)
[2017-07-18] MEDS: SODIUM CHLORIDE 0.9% FLUSH 10 ML FLUSH IV FLUSH SCH ×3 (01:41→21:00)
[2017-07-18 03:52] VITALS: BP 149/81; PULSE 64; RESP 16; TEMP 98.2; O2SAT 100
[2017-07-18] MEDS: DOCUSATE SODIUM 50 MG/SENNA 8.6 MG TAB PO SCH ×2 (08:14→21:00)
[2017-07-18 08:34] VITALS: BP 129/50; PULSE 60; RESP 20; TEMP 98.2; O2SAT 98
[2017-07-18 09:00] LABS: AUTOMATED NEUTROPHIL # 6.8 TH/MM3 (1.8-7.7); BASOPHIL % 0.5 % (0.0-2.0); EOSINOPHIL % 0.1 % (0.0-4.0); HEMATOCRIT 38.8 % (35.0-46.0); HEMOGLOBIN 12.4 GM/DL (11.6-15.3); LYMPH % 24.6 % (9.0-44.0); LYMPHOCYTE # 2.4 TH/MM3 (1.0-4.8); MEAN CORPUSCULAR HEMOGLOBIN 25.5 PG (27.0-34.0); MEAN CORPUSCULAR HGB CONC 31.9 % (32.0-36.0); MEAN PLATELET VOLUME 9.9 FL (7.0-11.0); MONO % 5.1 % (0.0-8.0); MONOCYTE # 0.5 TH/MM3 (0-0.9); NEUT % 69.7 % (16.0-70.0); PLATELET COUNT 282 TH/MM3 (150-450); RED BLOOD COUNT 4.85 MIL/MM3 (4.00-5.30); RED CELL DISTRIBUTION WIDTH 15.8 % (11.6-17.2); WHITE BLOOD COUNT 9.7 TH/MM3 (4.0-11.0)
[2017-07-18 09:13] LABS: BICARBONATE 21.5 MEQ/L (21.0-32.0); CALCIUM 9.2 MG/DL (8.5-10.1); CREATININE 0.88 MG/DL (0.50-1.00)
[2017-07-18] MEDS: SODIUM CHLOR 0.9% 1000 ML INJ 1,000 ML IV SCH (09:23)
--- NOTE | 2017-07-18 09:28 | HHI.PR ---
Subjective Remarks Follow-up toxic encephalopathy. She is awake and alert. States she is depressed but not suicidal anymore. Discussed with psychiatry. Patient has been placed under Tierney act and has accepted to med psych in medically cleared. Patient reports of having loose stools several times today which year he attributes to her anxiety. She also has history of ulcerative colitis. Denies history of C. difficile. Patient also reports history of coronary artery disease status post HI (Lexiscan negative in 2008), CVA (head CT without infarct ), seizure (noncompliant with medicine, EEG 2016 without seizure), A. fib and previous EKG showing sinus rhythm), COPD. Objective Vitals Vital Signs Date Time Temp Pulse Resp B/P (MAP) Pulse Ox O2 Delivery O2 Flow Rate FiO2 07/18/17 08:34 98.2 60 20 129/50 (76) 98 07/18/17 03:52 98.2 64 16 149/81 (103) 100 07/17/17 23:55 99.0 57 18 150/77 (101) 99 07/17/17 20:00 98.4 50 18 157/79 (105) 100 07/17/17 19:23 07/17/17 18:00 82 14 156/77 (103) 98 Room Air 07/17/17 17:00 56 14 143/82 (102) 98 Room Air 07/17/17 16:00 61 14 160/101 (120) 98 Room Air 07/17/17 15:41 07/17/17 13:25 50 14 161/68 (99) 99 Room Air 07/17/17 12:05 50 12 148/85 (106) 99 Nasal Cannula 2.00 07/17/17 10:30 62 12 138/86 (103) 100 Nasal Cannula 2.00 I/O 07/17/17 07/17/17 07/17/17 07/18/17 07/18/17 07/18/17 07:00 15:00 23:00 07:00 15:00 23:00 Intake Total 1000 ml Balance 1000 ml Intake IV Total 1000 ml Result Diagram: 07/18/1781907/17/17819 Imaging Last Impressions Head CT 07/17/17799 Signed Impressions: CONCLUSION: 1. No acute intracranial abnormality. Chest X-Ray 07/17/17799 Signed Impressions: CONCLUSION: 1. No acute cardiopulmonary disease. Cervical Spine CT 07/17/17 0000 Signed Impressions: CONCLUSION: No acute bony injury in the cervical spine Objective Remarks GENERAL: This is a well-nourished, well-developed patient, in no apparent distress. SKIN: Dirty skin and clothes. Old scars from previous wrist lacerations. HEAD: Atraumatic. Normocephalic. No temporal or scalp tenderness. EYES: Pupils equal round and reactive. Extraocular motions intact. No scleral icterus. No injection or drainage. ENT: Nose without bleeding. NECK: Trachea midline. No JVD or lymphadenopathy. Supple, nontender, no meningeal signs. CARDIOVASCULAR: Regular rate and rhythm without murmurs, gallops, or rubs. RESPIRATORY: Clear to auscultation. Breath sounds equal bilaterally. No wheezes , rales, or rhonchi. GASTROINTESTINAL: Abdomen soft, non-tender, nondistended.No guarding. MUSCULOSKELETAL: Extremities without clubbing, cyanosis, or edema. No joint tenderness, effusion, or edema noted. No calf tenderness. Negative Homans sign bilaterally. NEUROLOGICAL: Awake and alert nonfocal Procedures none A/P Problem List: (1) Drug intoxication ICD Code: F19.929 - Other psychoactive substance use, unspecified with intoxication, unspecified Status: Acute Assessment and Plan Acute toxic encephalopathy. She has polysubstance abuse. She is alert and oriented resolving encephalopathy. Patient has been counseled regarding PSA. She is depressed history of bipolar disorder. Discussed with psychiatry, patient has been placed under Tier[facility] act and has accepted to [id number] when medically cleared History of intravenous drug abuse. Counseled Monitor for infection Diarrhea with history of ulcerative colitis. Denies history of C. difficile. Discussed with nursing, patient has not been witnessed to have loose stools. We will continue to monitor continue IV hydration in light of slightly elevated creatinine. Patient also reports history of coronary artery disease status post HI ( Lexiscan negative in 2008), CVA (head CT without infarct), seizure ( noncompliant with medicine, EEG 2017 without seizure), A. fib and previous EKG showing sinus rhythm), COPD. EMR records reviewed. Seizure precautions DVT prophylaxis with SCD and early ambulation Discussed with nursing staff, obtain medication list and monitor patient today. If she is stable with no loose stools patient will be transferred to [facility] Problem Qualifiers (1) Drug intoxication: Qualified Codes: F19.929 - Other psychoactive substance use, unspecified with intoxication, unspecified William Pollard MD July 18, 2017 09:27
[2017-07-18] MEDS ORDERED: POTASSIUM CHLORIDE 20 MEQ CONTROLLED RELEASE TAB PO ONE (09:30)
[2017-07-18] MEDS: NS + KCL 20 MEQ INJ 1,000 ML IV SCH ×2 (11:31→22:12)
[2017-07-18 12:44] VITALS: BP 139/76; PULSE 69; RESP 16; TEMP 98; O2SAT 97
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
[2017-07-18 17:33] VITALS: BP 150/83; PULSE 50; RESP 16; TEMP 98.8; O2SAT 99
[2017-07-18 20:52] VITALS: BP 167/87; PULSE 78; RESP 18; TEMP 98.5; O2SAT 100
[2017-07-18] MEDS ORDERED: IBUPROFEN 400 MG TAB PO ONE (22:00)
[2017-07-18] MEDS ORDERED: clonazePAM 1 MG TAB PO ONE (22:00)
[2017-07-18] MEDS ORDERED: QUEtiapine FUMARATE 25 MG TAB PO ONE (22:00)
[2017-07-18 22:51] VITALS: BP 154/78; PULSE 58; RESP 18; TEMP 99; O2SAT 98
[2017-07-19] VITALS (7 sets, daily range): BP systolic 136–190; BP diastolic 85–108; PULSE 63–96; RESP 16–20; TEMP 98–98.8; O2SAT 96–100
[2017-07-19] MEDS: DOCUSATE SODIUM 50 MG/SENNA 8.6 MG TAB PO SCH ×2 (07:28→20:09)
[2017-07-19 08:02] LABS: AUTOMATED NEUTROPHIL # 5.4 TH/MM3 (1.8-7.7); BASOPHIL # 0.1 TH/MM3 (0-0.2); EOSINOPHIL % 0.5 % (0.0-4.0); HEMATOCRIT 34.6 % (35.0-46.0); HEMOGLOBIN 11.2 GM/DL (11.6-15.3); LYMPH % 25.7 % (9.0-44.0); LYMPHOCYTE # 2.1 TH/MM3 (1.0-4.8); MEAN CELL VOLUME 80.5 FL (80.0-100.0); MEAN CORPUSCULAR HGB CONC 32.3 % (32.0-36.0); MEAN PLATELET VOLUME 10.4 FL (7.0-11.0); MONO % 7.7 % (0.0-8.0); MONOCYTE # 0.6 TH/MM3 (0-0.9); NEUT % 65.1 % (16.0-70.0); PLATELET COUNT 258 TH/MM3 (150-450); RED CELL DISTRIBUTION WIDTH 15.7 % (11.6-17.2); WHITE BLOOD COUNT 8.3 TH/MM3 (4.0-11.0)
[2017-07-19 08:13] LABS: BICARBONATE 22.1 MEQ/L (21.0-32.0); CALCIUM 8.5 MG/DL (8.5-10.1); CREATININE 0.9 MG/DL (0.50-1.00); MAGNESIUM 1.8 MG/DL (1.5-2.5)
--- NOTE | 2017-07-19 08:20 | HHI.DCPOC ---
Discharge Care Plan Diagnosis: (1) Altered mental status Your Health Problems Are: Difficulty with ADL Exercise Tolerance Goals to Promote Your Health * To prevent worsening of your condition and complications * To maintain your health at the optimal level Directions to Meet Your Goals Take your medications as prescribed Follow your dietary instruction Follow activity as directed Keep your appointments as scheduled Take your immunizations and boosters as scheduled If your symptoms worsen call your PCP, if no PCP go to Urgent Care Center or Emergency Room Smoking is Dangerous to Your Health. Avoid second hand smoke Call the 24-hour hour crisis hotline for domestic abuse at William Pollard MD July 19, 2017 08:20
--- NOTE | 2017-07-19 08:20 | HHI.PR ---
Subjective Remarks Follow-up psychosis and diarrhea. States she is on Zyprexa, gabapentin and Vistaril RN to verify. Also reports she has been having loose stools not witnessed. Also complains of gum pain history of abscess Objective Vitals Vital Signs Date Time Temp Pulse Resp B/P (MAP) Pulse Ox O2 Delivery O2 Flow Rate FiO2 07/19/17 08:05 98.3 75 20 174/87 (116) 100 07/19/17 04:11 98.5 63 16 158/86 (110) 97 07/18/17 22:51 99.0 58 18 154/78 (103) 98 07/18/17 20:52 98.5 78 18 167/87 (113) 100 07/18/17 17:33 98.8 50 16 150/83 (105) 99 07/18/17 12:44 98.0 69 16 139/76 (97) 97 07/18/17 08:34 98.2 60 20 129/50 (76) 98 I/O 07/18/17 07/18/17 07/18/17 07/19/17 07/19/17 07/19/17 07:00 15:00 23:00 07:00 15:00 23:00 Intake Total 200 ml Balance 200 ml Intake IV Total 200 ml # Voids 1 1 2 # Bowel Movements 1 2 Result Diagram: 07/19/17 0540 07/19/17 0540 Imaging Last Impressions Head CT 07/17/17 0800 Signed Impressions: CONCLUSION: 1. No acute intracranial abnormality. Chest X-Ray 07/17/17 0800 Signed Impressions: CONCLUSION: 1. No acute cardiopulmonary disease. Cervical Spine CT 07/17/17 0000 Signed Impressions: CONCLUSION: No acute bony injury in the cervical spine Objective Remarks GENERAL: This is a well-nourished, well-developed patient, in no apparent distress. SKIN: No rash or lesion Mouth: Tender upper gums CARDIOVASCULAR: Regular rate and rhythm without murmurs, gallops, or rubs. RESPIRATORY: Clear to auscultation. Breath sounds equal bilaterally. No wheezes , rales, or rhonchi. GASTROINTESTINAL: Abdomen soft, non-tender, nondistended.No guarding. MUSCULOSKELETAL: Extremities without clubbing, cyanosis, or edema. No joint tenderness, effusion, or edema noted. No calf tenderness. Negative Homans sign bilaterally. NEUROLOGICAL: Awake and alert nonfocal Procedures none A/P Problem List: (1) Drug intoxication ICD Code: F19.929 - Other psychoactive substance use, unspecified with intoxication, unspecified Status: Acute Assessment and Plan Acute toxic encephalopathy. She has polysubstance abuse. She is alert and oriented resolving encephalopathy. Patient has been counseled regarding PSA. She is depressed history of bipolar disorder. Discussed with psychiatry, patient has been placed under Tierney act and [facility] History of intravenous drug abuse. Counseled Monitor for infection Diarrhea with history of ulcerative colitis. Denies history of C. difficile. Discussed with nursing, patient has not been witnessed to have loose stools. Gingivitis possible abscess. Start clindamycin with Lactinex. Ibuprofen as needed Patient also reports history of coronary artery disease status post [place] ( Lexiscan negative in 2008), CVA (head CT without infarct), seizure ( noncompliant with medicine, EEG 2016 without seizure), A. fib and previous EKG showing sinus rhythm), COPD. EMR records reviewed. Seizure precautions DVT prophylaxis with SCD and early ambulation Stable for discharge to [facility] Problem Qualifiers (1) Drug intoxication: Qualified Codes: F19.929 - Other psychoactive substance use, unspecified with intoxication, unspecified William Pollard MD July 19, 2017 08:20
[2017-07-19] MEDS ORDERED: POTASSIUM CHLORIDE 20 MEQ CONTROLLED RELEASE TAB PO ONE (08:30)
[2017-07-19] MEDS: SODIUM CHLORIDE 0.9% FLUSH 10 ML FLUSH IV FLUSH SCH ×2 (09:00→20:08)
[2017-07-19] MEDS: NS + KCL 20 MEQ INJ 1,000 ML IV SCH ×2 (09:20→20:13)
[2017-07-19] MEDS: QUEtiapine FUMARATE 25 MG TAB PO SCH ×2 (09:53→20:09)
[2017-07-19] MEDS: LACTOBACILLUS ACIDOPHILUS TAB PO SCH ×3 (09:53→17:36)
[2017-07-19] MEDS: CLINDAMYCIN 150 MG CAP PO SCH ×2 (09:53→17:36)
--- NOTE | 2017-07-19 10:08 | MG ---
cc: Mohsen Yeh MD INDICATION: A 47-year-old, Vicodin overdose, ulcerative colitis, anxiety, depression, grand mal seizure. Reglan, potassium. Migraines. DESCRIPTION: Recording shows a symmetric 7 Hz, 60 microvolt posterior rhythm. A lot of muscle artifact is seen. A lot of blink artifact. No hemisphere asymmetry is noted. Hyperventilation and photic stimulation were not performed as the patient thought photic stimulation would give her a seizure. IMPRESSION: Diffuse theta slowing consistent with a mild diffuse encephalopathy, but no focal abnormalities are noted. No seizure activity was seen. Mohsen Yeh MD DJM/TL , 09:43 AM , 10:07 AM
[2017-07-19] MEDS ORDERED: VIST50CA PO (11:35)
[2017-07-19] MEDS: IBUPROFEN 600 MG TAB PO PRN ×2 (13:17→20:09)
[2017-07-19] MEDS ORDERED: CLIN150 PO (15:20)
[2017-07-19] MEDS ORDERED: LACT PO (15:20)
[2017-07-19] MEDS ORDERED: SERO25TA PO (15:20)
--- NOTE | 2017-07-19 15:21 | HHI.DS ---
Discharge Summary Admission Date July 17, 2017 at 10:17 Discharge Date: July 19, 2017 Admitting Diagnosis Polysubstance abuse, drug intoxication, altered mental status (1) Drug intoxication ICD Code: F19.929 - Other psychoactive substance use, unspecified with intoxication, unspecified Diagnosis: Principal Status: Acute Procedures none Brief History - From Admission Patient is a 47-year-old female with past medical history of IV drug use, panic attacks and chronic back pain presents to the ED with AMS History obtained from records and staff, spoke with Dr Whitten ED physician. The patient is obtunded and responds to obnoxious stimuli. the patient was brought to emergency department via EMS for altered mental status. According to EMS he received a call for altered mental status and possible overdose on Vicodin. EMS states that the patient apparently was involved in argument with her boyfriend earlier tonight and possibly ingested 7- 8 Vicodin, however, the boyfriend was unsure what medications the patient may have overdosed on. According to EMS the boyfriend and others were holding the patient upright when they arrived, however, they did note the patient had dirt over the entire body. The also noted the patient had a marked to the anterior aspect of the neck which was red and circular. They state the patient was administered Narcan with minimal response, was noted at pupils over 2 mm bilateral. They also stated the patient had a heart rate that went down into the 30s, the patient was administered atropine which brought her heart rate up as well as her blood pressure up. Upon arrival the patient is minimally abusable to pain, has a gag reflex, but is unable to provide any information. She did receive narcan but not much responsiveness. VS remained stable so far. CBC/BMP: 07/19/17 0540 07/19/17 0540 Significant Findings Laboratory Tests Test 07/17/17 08:20 07/17/17 08:25 07/17/17 09:05 07/18/17 08:20 Urine Turbidity HAZY (CLEAR) Urine Protein 30 mg/dL (NEG-TRACE) Urine Ketones 10 mg/dL (NEG) Urine Leukocyte Esterase TRACE (NEG) Urine Mucus FEW /lpf (OCC) Blood Gas HCO3 27 mmol/L (22-26) Blood Gas Oxygen Saturation 88 % (90-100) Arterial Blood Partial Pressure CO2 46 mmHg (38-42) Arterial Blood Carboxyhemoglobin 7.0 % (0-4) Blood Gas Hemoglobin 11.7 G/DL (12.0-16.0) Creatinine 1.01 MG/DL (0.50-1.00) Random Glucose 108 MG/DL (74-106) Total Protein 8.4 GM/DL (6.4-8.2) Aspartate Amino Transf (AST/SGOT) 38 U/L (15-37) Estimat Glomerular Filtration Rate 59 ML/MIN (>89) 69 ML/MIN (>89) Troponin I LESS THAN 0.02 NG/ML Salicylates Level LESS THAN 1.7 MG/DL Urine Opiates Screen POS (NEG) Acetaminophen Level LESS THAN 2.0 MCG/ML Urine Cocaine Screen POS (NEG) Urine Cannabinoids Screen POS (NEG) Mean Corpuscular Volume 79.8 FL (80.0-100.0) Mean Corpuscular Hemoglobin 25.3 PG (27.0-34.0) 25.5 PG (27.0-34.0) Mean Corpuscular Hemoglobin Concent 31.7 % (32.0-36.0) 31.9 % (32.0-36.0) Neutrophils (%) (Auto) 73.0 % (16.0-70.0) Test 07/19/17 05:40 07/19/17 12:51 Hemoglobin 11.2 GM/DL (11.6-15.3) Hematocrit 34.6 % (35.0-46.0) Mean Corpuscular Hemoglobin 26.0 PG (27.0-34.0) Chloride Level 110 MEQ/L (98-107) Estimat Glomerular Filtration Rate 68 ML/MIN (>89) Imaging Last Impressions Head CT 07/17/17 0800 Signed Impressions: CONCLUSION: 1. No acute intracranial abnormality. Chest X-Ray 07/17/17 0800 Signed Impressions: CONCLUSION: 1. No acute cardiopulmonary disease. Cervical Spine CT 07/17/17 0000 Signed Impressions: CONCLUSION: No acute bony injury in the cervical spine PE at Discharge GENERAL: This is a well-nourished, well-developed patient, in no apparent distress. SKIN: No rash or lesion Mouth: Tender upper gums CARDIOVASCULAR: Regular rate and rhythm without murmurs, gallops, or rubs. RESPIRATORY: Clear to auscultation. Breath sounds equal bilaterally. No wheezes , rales, or rhonchi. GASTROINTESTINAL: Abdomen soft, non-tender, nondistended.No guarding. MUSCULOSKELETAL: Extremities without clubbing, cyanosis, or edema. No joint tenderness, effusion, or edema noted. No calf tenderness. Negative Homans sign bilaterally. NEUROLOGICAL: Awake and alert nonfocal Hospital Course Acute toxic encephalopathy. She has polysubstance abuse. She is alert and oriented resolving encephalopathy. Patient has been counseled regarding PSA. She is depressed history of bipolar disorder. Discussed with psychiatry, patient has been placed under Tierney act and has accepted to [facility] when medically cleared History of intravenous drug abuse. Counseled Monitor for infection Diarrhea with history of ulcerative colitis. Denies history of C. difficile. Discussed with nursing, patient has not been witnessed to have loose stools. Gingivitis possible abscess. Start clindamycin with Lactinex. Ibuprofen as needed. Outpatient follow-up with dental Patient also reports history of coronary artery disease status post [place] ( Lexiscan negative in 2008), CVA (head CT without infarct), seizure ( noncompliant with medicine, EEG 2016 without seizure), A. fib and previous EKG showing sinus rhythm), COPD. EMR records reviewed. Seizure precautions DVT prophylaxis with SCD and early ambulation Stable for discharge to [facility] Pt Condition on Discharge: Stable Discharge Disposition: Disc to Psych Care Fac Discharge Time: > 30 minutes Discharge Instructions DIET: Follow Instructions for: As Tolerated, No Restrictions Activities you can perform: Regular-No Restrictions Activities to Avoid: Driving Follow up Referrals: PCP Follow-up - 1 Week New Medications: Clindamycin (Cleocin) 150 Mg Cap 150 MG PO Q6HR for Infection, #40 CAP Lactobacillus Acidophilus (Acidophilus/l-Sporogenes) 35 Million Cell-25 Million Cell Tab 1 TAB PO TID for Bowel Management, #42 TAB Quetiapine (Seroquel) 25 Mg Tab 25 MG PO BID for psychosis, #60 TAB Continued Medications: Ibuprofen (Ibuprofen) 600 Mg Tab 600 MG PO Q8H PRN for PAIN, #21 TAB 0 Refills William Pollard MD July 19, 2017 15:21
[2017-07-19] MEDS ORDERED: clonazePAM 1 MG TAB PO SCH (18:00)
[2017-07-19] MEDS ORDERED: cloNIDine HCL 0.1 MG TAB PO ONE (20:45)
[2017-07-20] MEDS ORDERED: VIST50CA PO (14:42)
[2017-07-20] MEDS ORDERED: GABA600T PO (14:42)
[2017-07-20] MEDS ORDERED: ZYPR15TA PO (14:42)
== END 2017-07-19 23:35 ==
LOC: NEPE 07:05 → NEDA 10:17 → NEDH 16:04 → NEPFCDU 19:50
PROVIDERS: ADMIT Internal Medicine; ATTEND Internal Medicine
DX: F19.129 Other psychoactive substance abuse with intoxication, unspecified (principal); T39.1X1A Poisoning by 4-Aminophenol derivatives, accidental (unintentional), initial encounter; F15.20 Other stimulant dependence, uncomplicated; F17.210 Nicotine dependence, cigarettes, uncomplicated; J44.9 Chronic obstructive pulmonary disease, unspecified; K52.9 Noninfective gastroenteritis and colitis, unspecified; K21.9 Gastro-esophageal reflux disease without esophagitis; K51.90 Ulcerative colitis, unspecified, without complications; K75.9 Inflammatory liver disease, unspecified; G43.909 Migraine, unspecified, not intractable, without status migrainosus; R56.9 Unspecified convulsions; G47.00 Insomnia, unspecified; R94.31 Abnormal electrocardiogram [ECG] [EKG]; I25.2 Old myocardial infarction; Z86.73 Personal history of transient ischemic attack (TIA), and cerebral infarction without residual deficits
CPT/HCPCS: 36600; 70450; 71045; 72125; 80048; 80053; 80307; 81001; 82140; 82550; 82805; 83605; 83735; 84443; 84484; 84703; 85025; 85610; 85730; 87493; 93005; 95819; 96361; 96365; 96366; 96375; 97162; 99285; G0378; G8987; G8988; J2310; J2765; J3480; J7030; P9612

== ENCOUNTER 2017-07-19 21:36 | Inpatient (IN) | payer SELFPAY ==
[~2017-07-19] VITALS: Ht 162.6 cm; Wt 59.3 kg
[~2017-07-19 21:36] MED LIST changes: +CLIN150 PO; +LACT PO; +SERO25TA PO
[2017-07-20] MEDS ORDERED: ACETAMINOPHEN 325 MG TAB PO PRN (00:30)
[2017-07-20] MEDS ORDERED: MAGNESIUM HYDROXIDE SUSP 30 ML CUP PO PRN (00:30)
[2017-07-20] MEDS ORDERED: ALUMINUM/MAGNESIUM/SIMETH 30 ML CUP PO PRN (00:30)
[2017-07-20 01:14] VITALS: BP 124/78; PULSE 77; RESP 16; TEMP 98.7; O2SAT 99
[2017-07-20] MEDS ORDERED: LORazepam 1 MG TAB PO PRN (02:15)
[2017-07-20] MEDS ORDERED: FLUMAZENIL 0.5 MG/5 ML VIAL IV PUSH PRN (02:15)
[2017-07-20] MEDS ORDERED: LORazepam 2 MG/ML VIAL IV PUSH PRN ×4 (02:15)
[2017-07-20] MEDS ORDERED: LORazepam 2 MG TAB PO PRN (02:15)
[2017-07-20 07:11] VITALS: BP 148/78; PULSE 70; RESP 16; TEMP 97.6; O2SAT 98
[2017-07-20] MEDS ORDERED: QUEtiapine FUMARATE 25 MG TAB PO SCH (12:00)
[2017-07-20] MEDS ORDERED: CLINDAMYCIN 150 MG CAP PO SCH (13:00)
--- NOTE | 2017-07-20 13:11 | PD.CONS ---
HPI Service [facility] Hospitalists Consult Requested By Psychiatry service Reason for Consult Assist in management of medical condition Primary Care Physician Unknown Diagnoses: History of Present Illness This is a 47-year-old female with a past medical history significant for IV drug use, panic attacks, ulcerative colitis, COPD and chronic back pain who was admitted to [facility] under Tierney act with altered mental status/acute encephalopathy secondary to polysubstance abuse with urine drug screen positive for opiates, cannabinoids and cocaine. Patient was seen in consultation by psychiatry and accepted for inpatient admission. Hospitalist services have been consulted for assistance with ongoing medical management. Patient is complaining of severe anxiety and is requesting to be placed back on her medications. She reports improvement in her complaints of gingivitis and starting clindamycin. She denies any complaints of fever or chills. She denies any chest pain or shortness of breath. She denies any nausea, vomiting or abdominal pain. She denies any urinary difficulties or diarrhea. Review of Systems Except as stated in HPI: all other systems reviewed are Neg Past Family Social History Allergies: Coded Allergies: Sulfa (Sulfonamide Antibiotics) (Verified Allergy, Severe, Rash, 06/16/17) magnesium (Verified Adverse Reaction, Unknown, PRUITIC RASH, 06/16/17) magnesium sulfate (Verified Adverse Reaction, Unknown, PRUITIC RASH, ) prochlorperazine (Verified Adverse Reaction, Unknown, ANGINA, 06/16/17) terbutaline (Verified Adverse Reaction, Unknown, HEART RATE ELEVATES, 06/16) Past Medical History Polysubstance abuse including IV drug use Chronic back pain Panic attacks COPD Ulcerative colitis Past Surgical History Appendectomy Reported Medications Acidophilus/l-Sporogenes (Lactobacillus Acidophilus) 35 Million Cell-25 Million Cell Tab 1 Tab PO TID Seroquel (Quetiapine Fumarate) 25 Mg Tab 25 Mg PO BID Cleocin (Clindamycin HCl) 150 Mg Cap 150 Mg PO Q6HR Zyprexa (Olanzapine) 15 Mg Tab 15 Mg PO HS Gabapentin 600 Mg Tab 1,200 Mg PO BID Ibuprofen 600 Mg Tab 600 Mg PO Q8H PRN Vistaril (Hydroxyzine Pamoate) 50 Mg Cap 30 Mg PO BID Klonopin (Clonazepam) 1 Mg Tab 1 Mg PO TID Active Ordered Medications Current Medications Medications (Trade) Dose Ordered Sig/Tristan Route Start Time Stop Time Status Last Admin (Tylenol) 650 mg Q4H PRN PO 07/20/17 00:30 (Milk Of Magnesia Liq) 30 ml DAILY PRN PO 07/20/17 00:30 (Mag-Al Plus Susp Liq) 30 ml Q6H PRN PO 07/20/17 00:30 (Ativan) 1 mg Q4H PRN PO 07/20/17 02:15 (Ativan Inj) 1 mg Q4H PRN IV PUSH 07/20/17 02:15 (Ativan) 2 mg Q2H PRN PO 07/20/17 02:15 (Ativan Inj) 2 mg Q2H PRN IV PUSH 07/20/17 02:15 (Ativan Inj) 2 mg Q1H PRN IV PUSH 07/20/17 02:15 (Ativan Inj) 2 mg Q15M PRN IV PUSH 07/20/17 02:15 (Romazicon Inj) 0.2 mg Q1M PRN IV PUSH 07/20/17 02:15 (SEROquel) 25 mg BID@09,12 PO 07/20/17 12:00 Future Hold Family History Father, diabetes Social History Patient smokes half pack of cigarettes per day. IV drug use, morphine. Denies any alcohol use. Physical Exam Vital Signs Vital Signs Date Time Temp Pulse Resp B/P (MAP) Pulse Ox O2 Delivery O2 Flow Rate FiO2 07/20/17 07:11 97.6 70 16 148/78 (101) 98 07/20/17 01:14 98.7 77 16 124/78 (93) 99 Physical Exam GENERAL: This is a well-nourished, well-developed middle-aged female patient, in no apparent distress. Awake and alert. Appears upset, tearful. SKIN: No rashes, ecchymoses or lesions. Warm and dry. HEAD: Atraumatic. Normocephalic. No temporal or scalp tenderness. EYES: Pupils equal round and reactive. Extraocular motions intact. No scleral icterus. No injection or drainage. ENT: Nose without bleeding or purulent drainage. Throat without erythema, tonsillar hypertrophy or exudate. Uvula midline. Airway patent. +tender left upper gums NECK: Trachea midline. Supple, nontender, no meningeal signs. CARDIOVASCULAR: Regular rate and rhythm without murmurs, gallops, or rubs. RESPIRATORY: Nonlabored. Clear to auscultation. Breath sounds equal bilaterally. No wheezes, rales, or rhonchi. GASTROINTESTINAL: Abdomen soft, non-tender, nondistended. No hepato-splenomegaly , or palpable masses. No guarding. MUSCULOSKELETAL: Extremities without clubbing, cyanosis, or edema. No joint tenderness, effusion, or edema noted. No calf tenderness. NEUROLOGICAL: Awake and alert. Cranial nerves II through XII grossly intact. Motor and sensory grossly within normal limits. No focal neurologic finding appreciated. Normal speech. Assessment and Plan Assessment and Plan 47-year-old female with a past medical history significant for IV drug use, panic attacks, ulcerative colitis, COPD and chronic back pain who was admitted to [facility] under Tierney act with altered mental status/acute encephalopathy secondary to polysubstance abuse with urine drug screen positive for opiates, cannabinoids and cocaine. Admitted to inpatient psychiatry and hospitalist services consulted to assist with ongoing medical management. Bipolar disorder Depression Management per psychiatric team We will resume patient on Seroquel 25 mg twice daily as ordered by Dr. Benavides prior to transfer Acute toxic encephalopathy secondary to polysubstance abuse, resolving. Continue on CIWA protocol Monitor History of intravenous drug abuse Hep C Urine drug screen positive for opiates, cocaine and cannabis Patient counseled on cessation Standard precautions Diarrhea with history of ulcerative colitis Resolved per patient report Denies history of C. difficile. Monitor Gingivitis possible abscess Started on clindamycin with Lactinex prior to psych transfer, continue Monitor for improvement COPD, not in acute exacerbation Continue to monitor respiratory status Duo nebs as needed Patient also reports history of coronary artery disease status post IA ( Lexiscan negative in 2008), CVA (head CT without infarct), seizure ( noncompliant with medicine, EEG 2016 without seizure), A. fib and previous EKG showing sinus rhythm). Seizure precautions DVT prophylaxis Patient is ambulatory Thank you very kindly for this consultation. We will continue to follow patient along with you. Veronika Calzada July 20, 2017 13:11
[2017-07-20] MEDS ORDERED: IBUPROFEN 600 MG TAB PO PRN (13:15)
[2017-07-20] MEDS ORDERED: cloNIDine HCL 0.1 MG TAB PO PRN (13:15)
[2017-07-20] MEDS ORDERED: ZYPR15TA PO (14:42)
[2017-07-20] MEDS ORDERED: GABA600T PO (14:42)
[2017-07-20] MEDS ORDERED: VIST50CA PO (14:42)
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
[2017-07-20] MEDS ORDERED: LACTOBACILLUS ACIDOPHILUS TAB PO SCH (18:00)
[2017-07-21] MEDS ORDERED: FOLIC ACID 1 MG TAB PO SCH (09:00)
[2017-07-21] MEDS ORDERED: MULTIVITAMIN TAB PO SCH (09:00)
[2017-07-21] MEDS ORDERED: THIAMINE HCL 100 MG TAB PO SCH (09:00)
== END 2017-07-20 16:15 | disposition home or self-care (01) | DRG 882 ==
LOC: H260 23:15
PROVIDERS: ADMIT Psychiatry & Neurology Psychiatry; ATTEND Psychiatry & Neurology Psychiatry
DX: F43.24 Adjustment disorder with disturbance of conduct (principal); F19.10 Other psychoactive substance abuse, uncomplicated; G92 Toxic encephalopathy; K51.90 Ulcerative colitis, unspecified, without complications; F31.9 Bipolar disorder, unspecified; T50.992A Poisoning by other drugs, medicaments and biological substances, intentional self-harm, initial encounter; J44.9 Chronic obstructive pulmonary disease, unspecified; G89.29 Other chronic pain; M54.9 Dorsalgia, unspecified; K05.10 Chronic gingivitis, plaque induced; F41.0 Panic disorder [episodic paroxysmal anxiety]; F43.10 Post-traumatic stress disorder, unspecified; F17.210 Nicotine dependence, cigarettes, uncomplicated; Z76.5 Malingerer [conscious simulation]; Z79.899 Other long term (current) drug therapy; Z86.19 Personal history of other infectious and parasitic diseases; Z83.3 Family history of diabetes mellitus

== ENCOUNTER 2017-08-02 12:13 | Emergency (ER) | payer SELFPAY ==
[~2017-08-02] VITALS: Ht 162.6 cm; Wt 60.0 kg
[~2017-08-02 12:13] MED LIST changes: -CLON1 PO; -LACT PO; -SERO25TA PO
[2017-08-02 12:18] VITALS: BP 157/93; PULSE 87; RESP 16; TEMP 98.3
[2017-08-02] MEDS ORDERED: DALBAVANCIN INJ 1,500 MG in DEXTROSE 5% IN WATE 500 ML INJ 500 ML IV STA ×2 (14:35)
--- NOTE | 2017-08-02 14:40 | PD ---
HPI . Lump Chief Complaint: Lump, Cyst, Hernia Time Seen by Provider: 14:29 Travel History International Travel<30 days: No Contact w/Intl Traveler<30days: No Traveled to known affect area: No History of Present Illness HPI Patient presents with chief complaint of a painful lump in her low back. Onset was a week ago. It is getting progressively worse. She currently rates her pain at 9/10. She has a couple of other similar smaller bumps on the left buttock and thigh. PFSH Past Medical History Arthritis: No Asthma: Yes Autoimmune Disease: No Blood Disorders: No Bipolar Disorder: Yes Anxiety: Yes Depression: Yes Heart Rhythm Problems: Yes (afib ) Cancer: No Cardiac Catheterization: No Cardiovascular Problems: Yes High Cholesterol: Yes Chemotherapy: No Chest Pain: No Congestive Heart Failure: Yes COPD: Yes Cerebrovascular Accident: Yes (TIA) Diabetes: No Diminished Hearing: No Endocrine: No Gastrointestinal Disorders: Yes (COLITIS) GERD: Yes Genitourinary: No Headaches: Yes Hepatitis: Yes (C) Hiatal Hernia: No Heparin Induced Thrombocytopen: No Herniated Disk: Yes Hypertension: Yes Immune Disorder: No Implanted Vascular Access Dvce: No Insomnia: Yes Kidney Stones: No Musculoskeletal: No Neurologic: Yes Psychiatric: Yes Reproductive: No Respiratory: Yes Immunizations Current: Yes Migraines: Yes Myocardial Infarction: Yes (2011) Radiation Therapy: No Renal Failure: No Seizures: Yes Sickle Cell Disease: No Sleep Apnea: No Thyroid Disease: No Ulcer: No PNEUMOCCOCAL Vaccine (Year): 2 ?: Not LMP: IRREG Menopausal: Yes : 10 Para: 6 Miscarriage: 3 : 1 Ectopic : Yes (1994) Ovarian Cysts: Yes Dilation and Curettage (D&C): Yes Tubal Ligation: Yes Past Surgical History AICD: No Appendectomy: Yes Arteriovenous Shunt: No Cardiac Surgery: No Coronary Artery Bypass Graft: No Ear Surgery: No Endocrine Surgery: No Eye Surgery: No Genitourinary Surgery: No Gynecologic Surgery: Yes Insulin Pump: No Joint Replacement: No Oral Surgery: No Pacemaker: No Thoracic Surgery: No Social History Alcohol Use: No Tobacco Use: Yes (02/24 PPD) Substance Use: Yes (CRACK) Allergies-Medications (Allergen,Severity, Reaction): Coded Allergies: Sulfa (Sulfonamide Antibiotics) (Verified Allergy, Severe, Rash, 08/02/17) magnesium (Verified Adverse Reaction, Unknown, PRUITIC RASH, 08/02/17) magnesium sulfate (Verified Adverse Reaction, Unknown, PRUITIC RASH, ) prochlorperazine (Verified Adverse Reaction, Unknown, ANGINA, 08/02/17) terbutaline (Verified Adverse Reaction, Unknown, HEART RATE ELEVATES, 08/02) Reported Meds & Prescriptions Reported Meds & Active Scripts Active Vistaril (Hydroxyzine Pamoate) 50 Mg Cap 50 Mg PO BID Zyprexa (Olanzapine) 15 Mg Tab 15 Mg PO HS Gabapentin 600 Mg Tab 600 Mg PO 1AM 1 2PM 2HS Ibuprofen 600 Mg Tab 600 Mg PO Q8H PRN Review of Systems Except as stated in HPI: all other systems reviewed are Neg Physical Exam Narrative GENERAL: Awake and alert and in no acute distress. SKIN: Warm and dry. Normal color and turgor. Indurated area in the lower back , sacral area. It is not fluctuant. She has a couple of smaller areas of induration on the left buttock and left upper, lateral thigh. HEAD: Normocephalic/atraumatic. EYES: Pupils are equal. Extraocular movements are intact. NECK: Normal range of motion. Supple. CARDIOVASCULAR: Regular rate and rhythm. RESPIRATORY: Nonlabored respirations. Normal sats. MUSCULOSKELETAL: Atraumatic. Normal muscle tone. NEUROLOGICAL: A and O 3. Nonfocal. PSYCHIATRIC: Appropriate mood and affect. Data Data Last Documented VS Vital Signs Date Time Temp Pulse Resp B/P (MAP) Pulse Ox O2 Delivery O2 Flow Rate FiO2 08/02/17 12:18 98.3 87 16 157/93 (114) Orders Orders Complete Blood Count With Diff (08/02/17 14:35) Comprehensive Metabolic Panel (08/02/17 14:35) Blood Culture (08/02/17 14:35) Case Management Consult (08/02/17 ) Asp:No Reaction To [place]/Vanc (Asp Crit (08/02/17 14:45) Asp: Does Not Meet Inpt Admit (Asp Crit: (08/02/17 14:45) Asp: Iv Antibiotics Admit Only (Asp Crit (08/02/17 14:45) Asp: Location Of [place] Admin (Asp Crit: (08/02/17 14:45) Pharmacy Information ([facility] Info (08/02/17 14:45) Dalbavancin Inj (Dalvance Inj) (08/02/17 14:35) Ketorolac Inj (Toradol Inj) (08/02/17 14:45) Labs Laboratory Tests Test 08/02/17 14:55 White Blood Count 10.0 TH/MM3 Red Blood Count 4.43 MIL/MM3 Hemoglobin 11.4 GM/DL Hematocrit 35.4 % Mean Corpuscular Volume 80.0 FL Mean Corpuscular Hemoglobin 25.8 PG Mean Corpuscular Hemoglobin Concent 32.3 % Red Cell Distribution Width 15.3 % Platelet Count 228 TH/MM3 Mean Platelet Volume 9.8 FL Neutrophils (%) (Auto) 72.4 % Lymphocytes (%) (Auto) 17.3 % Monocytes (%) (Auto) 7.7 % Eosinophils (%) (Auto) 1.9 % Basophils (%) (Auto) 0.7 % Neutrophils # (Auto) 7.2 TH/MM3 Lymphocytes # (Auto) 1.7 TH/MM3 Monocytes # (Auto) 0.8 TH/MM3 Eosinophils # (Auto) 0.2 TH/MM3 Basophils # (Auto) 0.1 TH/MM3 CBC Comment AUTO DIFF Blood Urea Nitrogen 9 MG/DL Creatinine 0.76 MG/DL Random Glucose 121 MG/DL Total Protein 7.1 GM/DL Albumin 3.1 GM/DL Calcium Level 8.2 MG/DL Alkaline Phosphatase 112 U/L Aspartate Amino Transf (AST/SGOT) 20 U/L Alanine Aminotransferase (ALT/SGPT) 16 U/L Total Bilirubin 0.3 MG/DL Sodium Level 139 MEQ/L Potassium Level 3.6 MEQ/L Chloride Level 105 MEQ/L Carbon Dioxide Level 24.6 MEQ/L Anion Gap 9 MEQ/L Estimat Glomerular Filtration Rate 82 ML/MIN [facility] Medical Decision Making Medical Screen Exam Complete: Yes Emergency Medical Condition: Yes Medical Record Reviewed: Yes (History of drug abuse including opiates, cocaine and THC.) Differential Diagnosis My differential diagnosis of abscess includes but is not limited to abscess, cyst, lipoma Narrative Course This patient has several abscesses. The worst is on her lower back. None of them are yet ready to be drained. She has a history of drug abuse and is at risk for MRSA. She is also at risk for poor compliance. Therefore, she is being given Dalvance. CBC & BMP Diagram 08/02/17 14:55 Total Protein 7.1, Albumin 3.1 L, Calcium Level 8.2 L, Alkaline Phosphatase 112 , Aspartate Amino Transf (AST/SGOT) 20, Alanine Aminotransferase (ALT/SGPT) 16, Total Bilirubin 0.3 Diagnosis Primary Impression: Abscess Patient Instructions: Abscess (ED), General Instructions Disposition: 01 DISCHARGE HOME Condition: Stable Tanya Bennett MD Aug 02, 2017 14:40
[2017-08-02] MEDS ORDERED: ASP: Location of Dalbavancin administration OTHER ONE (14:45)
[2017-08-02] MEDS ORDERED: ASP: Does not meet inpatient admission criteria OTHER ONE (14:45)
[2017-08-02] MEDS ORDERED: ASP: No known hypersensitivity to Vanco, Telavancin, Dalbavancin OTHER ONE (14:45)
[2017-08-02] MEDS ORDERED: ASP: Only reason for admit - IV antibiotics OTHER ONE (14:45)
[2017-08-02] MEDS ORDERED: KETOROLAC TROMETHAMINE 30 MG/ML (IVP) VIAL IV PUSH ONE (14:45)
[2017-08-02] MEDS ORDERED: PHARMACY INFORMATION XX ONE (14:45)
[2017-08-02 15:24] LABS: AUTOMATED NEUTROPHIL # 7.2 TH/MM3 (1.8-7.7); BASOPHIL # 0.1 TH/MM3 (0-0.2); BASOPHIL % 0.7 % (0.0-2.0); EOSINOPHIL # 0.2 TH/MM3 (0-0.4); EOSINOPHIL % 1.9 % (0.0-4.0); HEMATOCRIT 35.4 % (35.0-46.0); HEMOGLOBIN 11.4 GM/DL (11.6-15.3); LYMPH % 17.3 % (9.0-44.0); LYMPHOCYTE # 1.7 TH/MM3 (1.0-4.8); MEAN CORPUSCULAR HEMOGLOBIN 25.8 PG (27.0-34.0); MEAN CORPUSCULAR HGB CONC 32.3 % (32.0-36.0); MEAN PLATELET VOLUME 9.8 FL (7.0-11.0); MONO % 7.7 % (0.0-8.0); MONOCYTE # 0.8 TH/MM3 (0-0.9); NEUT % 72.4 % (16.0-70.0); PLATELET COUNT 228 TH/MM3 (150-450); RED BLOOD COUNT 4.43 MIL/MM3 (4.00-5.30); RED CELL DISTRIBUTION WIDTH 15.3 % (11.6-17.2)
[2017-08-02 15:34] LABS: ALBUMIN 3.1 GM/DL (3.4-5.0); ALT (GPT) 16 U/L (10-53); AST (GOT) 20 U/L (15-37); BICARBONATE 24.6 MEQ/L (21.0-32.0); BLOOD UREA NITROGEN 9 MG/DL (7-18); CALCIUM 8.2 MG/DL (8.5-10.1); CHLORIDE 105 MEQ/L (98-107); CREATININE 0.76 MG/DL (0.50-1.00); GLOMERULAR FILTRATION RATE 82 ML/MIN (>89); GLUCOSE,RANDOM 121 MG/DL (74-106); SODIUM (NA) 139 MEQ/L (136-145)
[2017-08-02 15:36] LABS: ALKALINE PHOSPHATASE 112 U/L (45-117); TOTAL BILIRUBIN ADULT 0.3 MG/DL (0.2-1.0); TOTAL PROTEIN 7.1 GM/DL (6.4-8.2)
[2017-08-02] MEDS ORDERED: hydrOXYzine HCL 50 MG TAB PO ONE (16:00)
[2017-08-02 17:14] VITALS: BP 132/82
== END 2017-08-02 17:15 | disposition home or self-care (01) ==
LOC: NEPD 12:13
DX: L02.212 Cutaneous abscess of back [any part, except buttock and flank] (principal); L02.31 Cutaneous abscess of buttock; L02.416 Cutaneous abscess of left lower limb; J45.909 Unspecified asthma, uncomplicated; I48.91 Unspecified atrial fibrillation; J44.9 Chronic obstructive pulmonary disease, unspecified; I11.0 Hypertensive heart disease with heart failure; B19.20 Unspecified viral hepatitis C without hepatic coma; F15.10 Other stimulant abuse, uncomplicated; Z88.2 Allergy status to sulfonamides; Z72.0 Tobacco use
CPT/HCPCS: 80053; 85025; 87040; 96365; 96375; 99284; J0875; J1885; J7060

== ENCOUNTER 2017-08-09 09:39 | Emergency (ER) | payer SELFPAY ==
[~2017-08-09] VITALS: Ht 165.1 cm; Wt 60.0 kg
[~2017-08-09 09:39] MED LIST changes: -CLIN150 PO
[2017-08-09 09:43] VITALS: BP 147/89; PULSE 72; TEMP 97.3; O2SAT 99
[2017-08-09 09:58] VITALS: BP 154/95; PULSE 66; RESP 18; TEMP 97.3; O2SAT 100
[2017-08-09] MEDS ORDERED: SODIUM CHLOR 0.9% 1000 ML INJ 1,000 ML IV SCH (10:09)
[2017-08-09] MEDS ORDERED: METOCLOPRAMIDE HCL 10 MG/2 ML VIAL IV PUSH ONE (10:15)
[2017-08-09] MEDS ORDERED: diphenhydrAMINE HCL 50 MG/ML VIAL IV PUSH ONE (10:15)
[2017-08-09] MEDS ORDERED: SODIUM CHLORIDE 0.9% FLUSH 10 ML FLUSH IV FLUSH PRN (10:15)
[2017-08-09] MEDS ORDERED: DICYCLOMINE HCL 20 MG/2 ML VIAL IM ONE (10:15)
--- NOTE | 2017-08-09 10:17 | PD ---
HPI Chief Complaint: GI Complaint Time Seen by Provider: 10:09 Travel History International Travel<30 days: No Contact w/Intl Traveler<30days: No Traveled to known affect area: No History of Present Illness HPI 47-year-old female patient with history of colitis, previous IV drug use, multiple medical issues, presents to the ER today because she has had 2 days history of nausea, vomiting, diarrhea, not keeping things down, abdominal pains especially in the periumbilical and epigastric area, had taken Pepto-Bismol without significant relief. She denies any fevers. She has noted some dark stools in the last few days as well. She also states that this is kicking off her anxiety and she feels anxious. She had a lower back abscess and has been given Dalvance last week. Patient states that she had taken marijuana with a "white powder yesterday". Modifying Factors: None Associated Signs & Symptoms: Nausea, vomiting, diarrhea, abdominal pains, decreased p.o. intake Risk Factors: Previous history of colitis, recent antibiotic use PFSH Past Medical History Arthritis: No Asthma: Yes Autoimmune Disease: No Blood Disorders: No Bipolar Disorder: Yes Anxiety: Yes Depression: Yes Heart Rhythm Problems: Yes (afib ) Cancer: No Cardiac Catheterization: No Cardiovascular Problems: Yes High Cholesterol: Yes Chemotherapy: No Chest Pain: No Congestive Heart Failure: Yes COPD: Yes Cerebrovascular Accident: Yes Diabetes: No Diminished Hearing: No Endocrine: No Gastrointestinal Disorders: Yes (COLITIS) GERD: Yes Genitourinary: No Headaches: Yes Hepatitis: Yes (C) Hiatal Hernia: No Heparin Induced Thrombocytopen: No Herniated Disk: Yes Hypertension: Yes Immune Disorder: No Implanted Vascular Access Dvce: No Insomnia: Yes Kidney Stones: No Musculoskeletal: No Neurologic: Yes Psychiatric: Yes Reproductive: No Respiratory: Yes Immunizations Current: Yes Migraines: Yes Myocardial Infarction: Yes Radiation Therapy: No Renal Failure: No Seizures: Yes Sickle Cell Disease: No Sleep Apnea: No Thyroid Disease: No Ulcer: No Tetanus Vaccination: Never Vaccinated PNEUMOCCOCAL Vaccine (Year): 2 ?: Not LMP: few weeks ago Menopausal: Yes : 10 Para: 6 Miscarriage: 3 : 1 Ectopic : Yes (1994) Ovarian Cysts: Yes Dilation and Curettage (D&C): Yes Tubal Ligation: Yes Past Surgical History Surgical History: No Previous Surgery AICD: No Appendectomy: Yes Arteriovenous Shunt: No Cardiac Surgery: No Coronary Artery Bypass Graft: No Ear Surgery: No Endocrine Surgery: No Eye Surgery: No Genitourinary Surgery: No Gynecologic Surgery: Yes Insulin Pump: No Joint Replacement: No Oral Surgery: No Pacemaker: No Thoracic Surgery: No Social History Alcohol Use: No Tobacco Use: Yes Substance Use: Yes (weed) Allergies-Medications (Allergen,Severity, Reaction): Coded Allergies: Sulfa (Sulfonamide Antibiotics) (Verified Allergy, Severe, Rash, 08/09/17) magnesium (Verified Adverse Reaction, Unknown, PRUITIC RASH, 08/09/17) magnesium sulfate (Verified Adverse Reaction, Unknown, PRUITIC RASH, ) prochlorperazine (Verified Adverse Reaction, Unknown, ANGINA, 08/09/17) terbutaline (Verified Adverse Reaction, Unknown, HEART RATE ELEVATES, 08/09) Reported Meds & Prescriptions Reported Meds & Active Scripts Active Vistaril (Hydroxyzine Pamoate) 50 Mg Cap 50 Mg PO BID Zyprexa (Olanzapine) 15 Mg Tab 15 Mg PO HS Gabapentin 600 Mg Tab 600 Mg PO 1AM 1 2PM 2HS Ibuprofen 600 Mg Tab 600 Mg PO Q8H PRN Review of Systems Except as stated in HPI: all other systems reviewed are Neg Physical Exam Narrative GENERAL: Well-developed middle-age female patient currently in moderate distress. Awake and oriented 3. Appears fairly anxious. SKIN: Focused skin assessment warm/dry. 1 cm sore with mild surrounding erythema in the sacral region. Mildly tender to palpation, no significant drainage or fluctuance at this time. HEAD: Atraumatic. Normocephalic. EYES: Pupils equal and round. No scleral icterus. No injection or drainage. ENT: No nasal bleeding or discharge. Mucous membranes pink and moist. NECK: Trachea midline. No JVD. CARDIOVASCULAR: Regular rate and rhythm. No murmur appreciated. RESPIRATORY: No accessory muscle use. Clear to auscultation. Breath sounds equal bilaterally. GASTROINTESTINAL: Abdomen soft, periumbilical and epigastric tenderness as well as suprapubic tenderness without guarding or rebound, nondistended. Hepatic and splenic margins not palpable. MUSCULOSKELETAL: No obvious deformities. No clubbing. No cyanosis. No edema. NEUROLOGICAL: Awake and alert. No obvious cranial nerve deficits. Motor grossly within normal limits. Normal speech. PSYCHIATRIC: Anxious mood and affect; insight and judgment normal. Data Data Last Documented VS Vital Signs Date Time Temp Pulse Resp B/P (MAP) Pulse Ox O2 Delivery O2 Flow Rate FiO2 08/09/17 12:26 58 18 132/64 (86) 97 Room Air 08/09/17 09:58 97.3 Orders Orders Complete Blood Count With Diff (08/09/17 10:09) Comprehensive Metabolic Panel (08/09/17 10:09) Lipase (08/09/17 10:09) Urinalysis - C+S If Indicated (08/09/17 10:09) Iv Access Insert/Monitor (08/09/17 10:09) Ecg Monitoring (08/09/17 10:09) Oximetry (08/09/17 10:09) Sodium Chlor 0.9% 1000 Ml Inj (Ns 1000 M (08/09/17 10:09) Sodium Chloride 0.9% Flush (Ns Flush) (08/09/17 10:15) Electrocardiogram (08/09/17 10:09) Dicyclomine Inj (Bentyl Inj) (08/09/17 10:15) Ed Urine Pregnancytest Poc (08/09/17 10:09) Metoclopramide Inj (Reglan Inj) (08/09/17 10:15) Diphenhydramine Inj (Benadryl Inj) (08/09/17 10:15) Ketorolac Inj (Toradol Inj) (08/09/17 12:00) Urine Culture (08/09/17 11:40) Labs Laboratory Tests Test 08/09/17 10:45 08/09/17 11:40 White Blood Count 6.2 TH/MM3 Red Blood Count 4.87 MIL/MM3 Hemoglobin 12.1 GM/DL Hematocrit 38.6 % Mean Corpuscular Volume 79.3 FL Mean Corpuscular Hemoglobin 24.9 PG Mean Corpuscular Hemoglobin Concent 31.4 % Red Cell Distribution Width 15.3 % Platelet Count 303 TH/MM3 Mean Platelet Volume 10.0 FL Neutrophils (%) (Auto) 67.6 % Lymphocytes (%) (Auto) 25.7 % Monocytes (%) (Auto) 4.8 % Eosinophils (%) (Auto) 0.8 % Basophils (%) (Auto) 1.1 % Neutrophils # (Auto) 4.2 TH/MM3 Lymphocytes # (Auto) 1.6 TH/MM3 Monocytes # (Auto) 0.3 TH/MM3 Eosinophils # (Auto) 0.1 TH/MM3 Basophils # (Auto) 0.1 TH/MM3 CBC Comment DIFF FINAL Differential Comment Blood Urea Nitrogen 6 MG/DL Creatinine 0.97 MG/DL Random Glucose 159 MG/DL Total Protein 7.6 GM/DL Albumin 3.3 GM/DL Calcium Level 8.3 MG/DL Alkaline Phosphatase 108 U/L Aspartate Amino Transf (AST/SGOT) 12 U/L Alanine Aminotransferase (ALT/SGPT) 16 U/L Total Bilirubin 0.3 MG/DL Sodium Level 142 MEQ/L Potassium Level 3.2 MEQ/L Chloride Level 106 MEQ/L Carbon Dioxide Level 27.3 MEQ/L Anion Gap 9 MEQ/L Estimat Glomerular Filtration Rate 62 ML/MIN Lipase 52 U/L Urine Color YELLOW Urine Turbidity TURBID Urine pH 7.0 Urine Specific [place] 1.014 Urine Protein NEG mg/dL Urine Glucose (UA) NEG mg/dL Urine Ketones NEG mg/dL Urine Occult Blood NEG Urine Nitrite NEG Urine Bilirubin NEG Urine Urobilinogen 2.0 mg/dL Urine Leukocyte Esterase LARGE Urine RBC 2 /hpf Urine WBC 16 /hpf Urine Squamous Epithelial Cells 28 /hpf Urine Amorphous Sediment MANY Urine Bacteria FEW /hpf Urine Mucus MANY /lpf Microscopic Urinalysis Comment CULTURE INDICATED MDM Medical Decision Making Medical Screen Exam Complete: Yes Emergency Medical Condition: Yes Medical Record Reviewed: Yes Interpretation(s) Laboratory Tests Test 08/09/17 10:45 08/09/17 11:40 Mean Corpuscular Volume 79.3 FL (80.0-100.0) Mean Corpuscular Hemoglobin 24.9 PG (27.0-34.0) Mean Corpuscular Hemoglobin Concent 31.4 % (32.0-36.0) Blood Urea Nitrogen 6 MG/DL (7-18) Random Glucose 159 MG/DL (74-106) Albumin 3.3 GM/DL (3.4-5.0) Calcium Level 8.3 MG/DL (8.5-10.1) Aspartate Amino Transf (AST/SGOT) 12 U/L (15-37) Potassium Level 3.2 MEQ/L (3.5-5.1) Estimat Glomerular Filtration Rate 62 ML/MIN (>89) Lipase 52 U/L (73-393) Urine Urobilinogen 2.0 mg/dL (LESS THAN 2) Urine Leukocyte Esterase LARGE (NEG) Urine WBC 16 /hpf (0-5) Urine Bacteria FEW /hpf (NONE) Urine Mucus MANY /lpf (OCC) Differential Diagnosis Gastritis versus gastroenteritis versus colitis versus dehydration versus electrolyte abnormalities Narrative Course Lab work shows mild hypokalemia. Patient also has a UTI. There is no significant leukocytosis. At this point, it appears that she may have some underlying colitis, and is not clear whether this is related to recent antibiotic use or not. My plan would be to treat her UTI with Cipro and considering the colitis as well, we will add Flagyl since we cannot rule out possibility of C. difficile in this case. However, patient has been having intermittent issues anyways and it is unclear whether this could just be an acute on chronic issue with colitis as well. Return for any worsening in symptoms as necessary. The plan has been discussed with her and she states understanding. Diagnosis Primary Impression: Abdominal pain Additional Impression: UTI (urinary tract infection) Med/Other Pt SpecificInfo: Prescription(s) given Scripts Ondansetron Odt (Zofran Odt) 4 Mg Tab 4 MG SL Q6HR Y for Nausea/Vomiting, #7 TAB 0 Refills Prov: Az Downey MD 08/09/17 Metronidazole (Flagyl) 500 Mg Tab 500 MG PO TID for Infection for 7 Days, TAB 0 Refills Prov: Az Downey MD 08/09/17 Ciprofloxacin (Cipro) 500 Mg Tab 500 MG PO BID for Infection for 7 Days, #14 TAB 0 Refills Prov: Az Downey MD 08/09/17 Ibuprofen (Ibuprofen) 600 Mg Tab 600 MG PO Q8H Y for PAIN, #21 TAB 0 Refills Prov: Az Downey MD 08/09/17 Disposition: 01 DISCHARGE HOME Condition: Stable Az Downey MD Aug 09, 2017 10:17
[2017-08-09 10:50] VITALS: O2SAT 99
[2017-08-09 10:58] LABS: AUTOMATED NEUTROPHIL # 4.2 TH/MM3 (1.8-7.7); BASOPHIL # 0.1 TH/MM3 (0-0.2); BASOPHIL % 1.1 % (0.0-2.0); EOSINOPHIL # 0.1 TH/MM3 (0-0.4); EOSINOPHIL % 0.8 % (0.0-4.0); HEMATOCRIT 38.6 % (35.0-46.0); HEMOGLOBIN 12.1 GM/DL (11.6-15.3); LYMPH % 25.7 % (9.0-44.0); LYMPHOCYTE # 1.6 TH/MM3 (1.0-4.8); MEAN CELL VOLUME 79.3 FL (80.0-100.0); MEAN CORPUSCULAR HEMOGLOBIN 24.9 PG (27.0-34.0); MEAN CORPUSCULAR HGB CONC 31.4 % (32.0-36.0); MONO % 4.8 % (0.0-8.0); MONOCYTE # 0.3 TH/MM3 (0-0.9); NEUT % 67.6 % (16.0-70.0); PLATELET COUNT 303 TH/MM3 (150-450); RED BLOOD COUNT 4.87 MIL/MM3 (4.00-5.30); RED CELL DISTRIBUTION WIDTH 15.3 % (11.6-17.2); WHITE BLOOD COUNT 6.2 TH/MM3 (4.0-11.0)
[2017-08-09 11:13] LABS: ALBUMIN 3.3 GM/DL (3.4-5.0); ALT (GPT) 16 U/L (10-53); AST (GOT) 12 U/L (15-37); BICARBONATE 27.3 MEQ/L (21.0-32.0); BLOOD UREA NITROGEN 6 MG/DL (7-18); CALCIUM 8.3 MG/DL (8.5-10.1); CHLORIDE 106 MEQ/L (98-107); CREATININE 0.97 MG/DL (0.50-1.00); GLOMERULAR FILTRATION RATE 62 ML/MIN (>89); GLUCOSE,RANDOM 159 MG/DL (74-106); SODIUM (NA) 142 MEQ/L (136-145)
[2017-08-09 11:16] LABS: ALKALINE PHOSPHATASE 108 U/L (45-117); TOTAL BILIRUBIN ADULT 0.3 MG/DL (0.2-1.0); TOTAL PROTEIN 7.6 GM/DL (6.4-8.2)
[2017-08-09] MEDS ORDERED: KETOROLAC TROMETHAMINE 30 MG/ML (IVP) VIAL IV PUSH ONE (12:00)
[2017-08-09 12:17] LABS: AMORPHOUS SEDIMENT, URINE MANY; BACTERIA, URINE FEW /hpf; BILIRUBIN, URINE NEG (NEG); BLOOD, URINE NEG (NEG); GLUCOSE,URINE NEG (NEG); KETONE, URINE NEG (NEG); MUCUS URINE MANY /lpf (OCC); NITRITE,URINE NEG (NEG); SQUAMOUS EPITHELIAL CELL URINE 28 /hpf (0-5); URINE COLOR YELLOW (YELLW/STRAW); URINE LEUKOCYTE ESTERASE LARGE (NEG)
[2017-08-09 12:26] VITALS: BP 132/64; PULSE 58; RESP 18; O2SAT 97
[2017-08-09] MEDS ORDERED: ZOFR4TAB3 SL (12:43)
[2017-08-09] MEDS ORDERED: CIPR-9 PO (12:43)
[2017-08-09] MEDS ORDERED: IBUP-232 PO (12:43)
[2017-08-09] MEDS ORDERED: METR-1 PO (12:43)
[2017-08-10] MEDS ORDERED: AMOX875T PO (16:05)
--- NOTE | 2017-08-10 23:17 | EKG ---
Date Performed: 08/09/2017 Time Performed: 11:25:01 PTAGE: 47 years EKG: Sinus rhythm DIFFUSE ST CHANGES ABNORMAL RHYTHM ECG PREVIOUS TRACING : 07/17/2017 08.16 DOCTOR: Joanna Fortune Interpretating Date/Time 08/10/2017 23:04:52
== END 2017-08-09 13:15 | disposition home or self-care (01) ==
LOC: NEPE 09:39
DX: N39.0 Urinary tract infection, site not specified (principal); B96.20 Unspecified Escherichia coli [E. coli] as the cause of diseases classified elsewhere; R94.31 Abnormal electrocardiogram [ECG] [EKG]; L02.212 Cutaneous abscess of back [any part, except buttock and flank]; R11.2 Nausea with vomiting, unspecified; R19.7 Diarrhea, unspecified; E78.00 Pure hypercholesterolemia, unspecified; F31.9 Bipolar disorder, unspecified; F41.9 Anxiety disorder, unspecified; I48.91 Unspecified atrial fibrillation; I11.0 Hypertensive heart disease with heart failure; I50.9 Heart failure, unspecified; G47.00 Insomnia, unspecified; I25.2 Old myocardial infarction; J44.9 Chronic obstructive pulmonary disease, unspecified; K21.9 Gastro-esophageal reflux disease without esophagitis; Z86.73 Personal history of transient ischemic attack (TIA), and cerebral infarction without residual deficits; F12.90 Cannabis use, unspecified, uncomplicated; Z72.0 Tobacco use
CPT/HCPCS: 80053; 81001; 83690; 84703; 85025; 87077; 87086; 87186; 93005; 96372; 96374; 96375; 99284; J0500; J1200; J1885; J2765; J7030

== ENCOUNTER 2017-08-10 13:19 | Emergency (ER) | payer SELFPAY ==
[~2017-08-10] VITALS: Ht 162.6 cm; Wt 60.0 kg
[~2017-08-10 13:19] MED LIST changes: +CIPR-9 PO; +METR-1 PO; +ZOFR4TAB3 SL
[2017-08-10 13:20] VITALS: BP 172/102; PULSE 77; RESP 16; TEMP 98.9; O2SAT 100
--- NOTE | 2017-08-10 15:27 | PD ---
HPI Chief Complaint: Oral / Dental Pain or Problem Time Seen by Provider: 15:05 Travel History International Travel<30 days: No Contact w/Intl Traveler<30days: No Traveled to known affect area: No History of Present Illness HPI 47-year-old female presents to the emergency room for evaluation of right lower dental pain and swelling that started this morning upon waking. Patient states pain is severe. She is crying and histrionic throughout history and physical exam and difficult to obtain history from. She took 400 mg ibuprofen this morning without relief. She also has been using Orajel without relief. She denies objective fevers or drainage. She knows that she needs to see a dentist but does not have the money and has a seizure history which makes it difficult. She was just seen in the emergency room yesterday for abdominal pain with a complete workup and diagnosed with a urinary tract infection. She has not had her Cipro or Flagyl filled yet. She has an appointment with her psychiatrist tomorrow for follow-up. PFSH Past Medical History Arthritis: No Asthma: Yes Autoimmune Disease: No Blood Disorders: No Bipolar Disorder: Yes Anxiety: Yes Depression: Yes Heart Rhythm Problems: Yes (afib ) Cancer: No Cardiac Catheterization: No Cardiovascular Problems: Yes High Cholesterol: Yes Chemotherapy: No Chest Pain: No Congestive Heart Failure: Yes COPD: Yes Cerebrovascular Accident: Yes Diabetes: No Diminished Hearing: No Endocrine: No Gastrointestinal Disorders: Yes (COLITIS) GERD: Yes Genitourinary: No Headaches: Yes Hepatitis: Yes (C) Hiatal Hernia: No Heparin Induced Thrombocytopen: No Herniated Disk: Yes Hypertension: Yes Immune Disorder: No Implanted Vascular Access Dvce: No Insomnia: Yes Kidney Stones: No Musculoskeletal: No Neurologic: Yes Psychiatric: Yes Reproductive: No Respiratory: Yes Immunizations Current: Yes Migraines: Yes Myocardial Infarction: Yes Radiation Therapy: No Renal Failure: No Seizures: Yes Sickle Cell Disease: No Sleep Apnea: No Thyroid Disease: No Ulcer: No PNEUMOCCOCAL Vaccine (Year): 2 Menopausal: Yes : 10 Para: 6 Miscarriage: 3 : 1 Ectopic : Yes (1994) Ovarian Cysts: Yes Dilation and Curettage (D&C): Yes Tubal Ligation: Yes Past Surgical History AICD: No Appendectomy: Yes Arteriovenous Shunt: No Cardiac Surgery: No Coronary Artery Bypass Graft: No Ear Surgery: No Endocrine Surgery: No Eye Surgery: No Genitourinary Surgery: No Gynecologic Surgery: Yes Insulin Pump: No Joint Replacement: No Oral Surgery: No Pacemaker: No Thoracic Surgery: No Social History Alcohol Use: No Tobacco Use: Yes Substance Use: Yes (weed) Allergies-Medications (Allergen,Severity, Reaction): Coded Allergies: Sulfa (Sulfonamide Antibiotics) (Verified Allergy, Severe, Rash, 08/09/17) magnesium (Verified Adverse Reaction, Unknown, PRUITIC RASH, 08/09/17) magnesium sulfate (Verified Adverse Reaction, Unknown, PRUITIC RASH, ) prochlorperazine (Verified Adverse Reaction, Unknown, ANGINA, 08/09/17) terbutaline (Verified Adverse Reaction, Unknown, HEART RATE ELEVATES, 08/09) Reported Meds & Prescriptions Reported Meds & Active Scripts Active Zofran Odt (Ondansetron Odt) 4 Mg Tab 4 Mg SL Q6HR PRN Flagyl (Metronidazole) 500 Mg Tab 500 Mg PO TID 7 Days Cipro (Ciprofloxacin HCl) 500 Mg Tab 500 Mg PO BID 7 Days Ibuprofen 600 Mg Tab 600 Mg PO Q8H PRN Vistaril (Hydroxyzine Pamoate) 50 Mg Cap 50 Mg PO BID Zyprexa (Olanzapine) 15 Mg Tab 15 Mg PO HS Gabapentin 600 Mg Tab 600 Mg PO 1AM 1 2PM 2HS Review of Systems Except as stated in HPI: all other systems reviewed are Neg Physical Exam Narrative GENERAL: Well-nourished, well-developed female no acute distress. Afebrile. Ambulatory. SKIN: Focused skin assessment warm/dry. HEAD: Normocephalic. EYES: No scleral icterus. No injection or drainage. NECK: Supple, trachea midline. No JVD or lymphadenopathy.. DENTAL: Significant decay throughout. Patient has few teeth and multiple areas of broken tooth at the gumline. No malocclusion. No facial edema. No submental, submandibular, or buccal induration or edema. Extreme tenderness to palpation of the right lower jaw especially near the front. There is some edema of the gumline. CARDIOVASCULAR: Regular rate and rhythm without murmurs, gallops, or rubs. RESPIRATORY: Breath sounds equal bilaterally. No accessory muscle use. PSYCHIATRIC: No delusional thought processes. No hallucinations. Crying in pain. Histrionic. Data Data Last Documented VS Vital Signs Date Time Temp Pulse Resp B/P (MAP) Pulse Ox O2 Delivery O2 Flow Rate FiO2 08/10/17 13:20 98.9 77 16 172/102 (125) 100 Orders Orders Ketorolac Inj (Toradol Inj) (08/10/17 15:30) Ciprofloxacin (Cipro) (08/10/17 15:30) Amoxicillin (Trimox) (08/10/17 15:30) Hydroxyzine Pamoate (Vistaril) (08/10/17 15:30) MDM Medical Decision Making Medical Screen Exam Complete: Yes Emergency Medical Condition: Yes Medical Record Reviewed: Yes Differential Diagnosis Abscess, dental abscess, dentalgia, gingivitis Narrative Course 47-year-old female presents to the emergency room for evaluation of right lower dental pain that started this morning upon waking. Physical exam reveals significant decay throughout mouth. She has very few teeth in almost all of them are broken at the gumline. There is some erythema and edema to the lower gumline without significant extension into the jaw, face, or neck. No difficulty swallowing. No obvious drainage. No obvious abscess to drain. Vital signs stable. No evidence of sepsis. Patient is very histrionic on exam. She will be given first dose of amoxicillin for dental abscess in the emergency room. She was also given her dose of ciprofloxacin for urinary tract infection that was diagnosed yesterday because she has not had her prescription filled yet. She was given Toradol for pain and asked for Vistaril while in the emergency room. States she is prescribed the medication but ran out. She plans to see her psychiatrist tomorrow for refill. She understands and agrees to plan. Diagnosis Primary Impression: Dental abscess Referrals: Dentist Additional Instructions: Rest and drink plenty of fluids. Fill prescribed Cipro for your urinary tract infection. Oxacillin as directed, until gone. Follow-up with a dentist. Return to the emergency room for worsening symptoms. Med/Other Pt SpecificInfo: Prescription(s) given Disposition: 01 DISCHARGE HOME Condition: Stable Rocio Corea Aug 10, 2017 15:27
[2017-08-10] MEDS ORDERED: KETOROLAC TROMETHAMINE 60 MG/2 ML (IM) VIAL IM ONE (15:30)
[2017-08-10] MEDS ORDERED: CIPROFLOXACIN 500 MG TAB PO ONE (15:30)
[2017-08-10] MEDS ORDERED: AMOXICILLIN 875 MG TAB PO ONE (15:30)
[2017-08-10] MEDS ORDERED: AMOX875T PO (16:05)
== END 2017-08-10 16:20 | disposition home or self-care (01) ==
LOC: NEPK 13:19
DX: K04.7 Periapical abscess without sinus (principal); I10 Essential (primary) hypertension; I48.91 Unspecified atrial fibrillation; K21.9 Gastro-esophageal reflux disease without esophagitis; E78.00 Pure hypercholesterolemia, unspecified; I25.2 Old myocardial infarction; F31.9 Bipolar disorder, unspecified; F41.8 Other specified anxiety disorders; Z72.0 Tobacco use; Z87.09 Personal history of other diseases of the respiratory system; Z87.19 Personal history of other diseases of the digestive system; Z87.39 Personal history of other diseases of the musculoskeletal system and connective tissue; Z86.69 Personal history of other diseases of the nervous system and sense organs
CPT/HCPCS: 96372; 99283; J1885

== ENCOUNTER 2017-08-18 17:22 | Emergency (ER) | payer SELFPAY ==
[~2017-08-18] VITALS: Ht 162.6 cm; Wt 60.0 kg
[~2017-08-18 17:22] MED LIST changes: +AMOX875T PO
[2017-08-18 17:35] VITALS: BP 138/89; PULSE 82; RESP 19; TEMP 98.4; O2SAT 96
[2017-08-18] MEDS ORDERED: SODIUM CHLOR 0.9% 1000 ML INJ 1,000 ML IV ONE (18:49)
[2017-08-18] MEDS ORDERED: METOCLOPRAMIDE HCL 10 MG/2 ML VIAL IV PUSH ONE (19:00)
[2017-08-18] MEDS ORDERED: diphenhydrAMINE HCL 50 MG/ML VIAL IV PUSH ONE (19:00)
[2017-08-18] MEDS ORDERED: KETOROLAC TROMETHAMINE 30 MG/ML (IVP) VIAL IV PUSH ONE (19:00)
--- NOTE | 2017-08-18 19:06 | PD ---
HPI Chief Complaint: GI Complaint Time Seen by Provider: 18:44 Travel History International Travel<30 days: No Contact w/Intl Traveler<30days: No Traveled to known affect area: No History of Present Illness HPI The patient is a 47-year-old female who presents emergency department for abdominal pain and dysuria. The patient states she just got out of drug rehabilitation 2 days ago. The patient was being treated for UTI with Cipro, however, continues to have discomfort with urination. The patient also states she occasionally has something protruding from the vagina. She is sexually active, denies . She denies any significant vaginal discharge or bleeding. The abdominal pain is located over the pelvic region, does radiate up into the epigastrium. The patient does state she has a history of polysubstance abuse including opiates and has been out of rehab for 1-2 days. She denies any fever, chills, or sweats. Symptoms are moderate. She does not seen a two needle machine operator on a regular basis. There are no current alleviating or exacerbating factors. The patient does note she has had nausea and vomiting with her pelvic pain, but denies any diarrhea. Previous abdominal surgery includes appendectomy. PFSH Past Medical History Arthritis: No Asthma: Yes Autoimmune Disease: No Blood Disorders: No Bipolar Disorder: Yes Anxiety: Yes Depression: Yes Heart Rhythm Problems: Yes (afib ) Cancer: No Cardiac Catheterization: No Cardiovascular Problems: Yes High Cholesterol: Yes Chemotherapy: No Chest Pain: No Congestive Heart Failure: Yes COPD: Yes Cerebrovascular Accident: Yes Diabetes: No Diminished Hearing: No Endocrine: No Gastrointestinal Disorders: Yes (COLITIS) GERD: Yes Genitourinary: No Headaches: Yes Hepatitis: Yes (C) Hiatal Hernia: No Heparin Induced Thrombocytopen: No Herniated Disk: Yes Hypertension: Yes Immune Disorder: No Implanted Vascular Access Dvce: No Insomnia: Yes Kidney Stones: No Musculoskeletal: No Neurologic: Yes Psychiatric: Yes Reproductive: No Respiratory: Yes Immunizations Current: Yes Migraines: Yes Myocardial Infarction: Yes Radiation Therapy: No Renal Failure: No Seizures: Yes Sickle Cell Disease: No Sleep Apnea: No Thyroid Disease: No Ulcer: No PNEUMOCCOCAL Vaccine (Year): 2 ?: Not Menopausal: Yes : 10 Para: 6 Miscarriage: 3 : 1 Ectopic : Yes (1994) Ovarian Cysts: Yes Dilation and Curettage (D&C): Yes Tubal Ligation: Yes Past Surgical History AICD: No Appendectomy: Yes Arteriovenous Shunt: No Cardiac Surgery: No Coronary Artery Bypass Graft: No Ear Surgery: No Endocrine Surgery: No Eye Surgery: No Genitourinary Surgery: No Gynecologic Surgery: Yes Insulin Pump: No Joint Replacement: No Oral Surgery: No Pacemaker: No Thoracic Surgery: No Other Surgery: Yes (appendectomy ) Social History Alcohol Use: No Tobacco Use: Yes (2 ppd) Substance Use: Yes (weed, cocaine, opiates) Allergies-Medications (Allergen,Severity, Reaction): Coded Allergies: Sulfa (Sulfonamide Antibiotics) (Verified Allergy, Severe, Rash, 08/10/17) magnesium (Verified Adverse Reaction, Unknown, PRUITIC RASH, 08/10/17) magnesium sulfate (Verified Adverse Reaction, Unknown, PRUITIC RASH, ) prochlorperazine (Verified Adverse Reaction, Unknown, ANGINA, 08/10/17) terbutaline (Verified Adverse Reaction, Unknown, HEART RATE ELEVATES, 08/10) Reported Meds & Prescriptions Reported Meds & Active Scripts Active Amoxicillin 875 Mg Tab 875 Mg PO BID 10 Days Cipro (Ciprofloxacin HCl) 500 Mg Tab 500 Mg PO BID 7 Days Ibuprofen 600 Mg Tab 600 Mg PO Q8H PRN Vistaril (Hydroxyzine Pamoate) 50 Mg Cap 50 Mg PO BID Zyprexa (Olanzapine) 15 Mg Tab 15 Mg PO HS Reported Gabapentin 600 Mg Tab 1,200 Mg PO BID Review of Systems Except as stated in HPI: all other systems reviewed are Neg General / Constitutional: No: Fever Cardiovascular: No: Chest Pain or Discomfort Respiratory: No: Shortness of Breath Gastrointestinal: Positive: Nausea, Vomiting, Abdominal Pain, No: Diarrhea Genitourinary: Positive: Dysuria, Pelvic Pain, No: Hematuria, Discharge, Vaginal Bleeding Skin: No Rash, No Itching Psychiatric: Positive: Anxiety, Depression, Substance Abuse Physical Exam Narrative GENERAL: Awake, alert, nontoxic-appearing 47-year-old female who appears her stated age and is in no acute respiratory distress. SKIN: Focused skin assessment warm/dry. HEAD: Atraumatic. Normocephalic. EYES: Pupils equal and round. No scleral icterus. No injection or drainage. ENT: No nasal bleeding or discharge. Poor dentition. NECK: Trachea midline. No JVD. CARDIOVASCULAR: Regular rate and rhythm. No murmur appreciated. RESPIRATORY: No accessory muscle use. Clear to auscultation. Breath sounds equal bilaterally. GASTROINTESTINAL: Abdomen soft, suprapubic tenderness. No guarding or rigidity. Pelvic: The exam was performed in the presence of a female nurse. External examination reveals prolapse from the vagina, cylindrical shaped approximately 10 cm in length. Unsure if this is uterine or bladder. This was able to be reduced. However, patient did not tolerate speculum examination. Swabs were taken from the introitus for gonorrhea/chlamydia and wet prep. Back: No CVA tenderness. MUSCULOSKELETAL: No obvious deformities. No clubbing. No cyanosis. No edema. NEUROLOGICAL: Awake and alert. No obvious cranial nerve deficits. Motor grossly within normal limits. Normal speech. PSYCHIATRIC: Appropriate mood and affect; insight and judgment normal. Data Data Last Documented VS Vital Signs Date Time Temp Pulse Resp B/P (MAP) Pulse Ox O2 Delivery O2 Flow Rate FiO2 08/18/17 17:35 98.4 82 19 138/89 (105) 96 Room Air Orders Orders Complete Blood Count With Diff (08/18/17 18:49) Comprehensive Metabolic Panel (08/18/17 18:49) Gc And Chlamydia Pcr (08/18/17 18:49) Wet Prep Profile (08/18/17 18:49) Urinalysis - C+S If Indicated (08/18/17 18:49) Sodium Chlor 0.9% 1000 Ml Inj (Ns 1000 M (08/18/17 18:49) Lipase (08/18/17 18:49) Ketorolac Inj (Toradol Inj) (08/18/17 19:00) Metoclopramide Inj (Reglan Inj) (08/18/17 19:00) Diphenhydramine Inj (Benadryl Inj) (08/18/17 19:00) Us Pelvis Comp W Doppler (08/18/17 ) Acetaminophen (Tylenol) (08/18/17 20:15) Ed Discharge Order (08/18/17 20:57) Labs Laboratory Tests Test 08/18/17 19:10 08/18/17 20:32 White Blood Count 6.2 TH/MM3 Red Blood Count 4.57 MIL/MM3 Hemoglobin 11.6 GM/DL Hematocrit 36.1 % Mean Corpuscular Volume 79.0 FL Mean Corpuscular Hemoglobin 25.3 PG Mean Corpuscular Hemoglobin Concent 32.0 % Red Cell Distribution Width 16.0 % Platelet Count 320 TH/MM3 Mean Platelet Volume 9.6 FL Neutrophils (%) (Auto) 58.4 % Lymphocytes (%) (Auto) 33.2 % Monocytes (%) (Auto) 5.9 % Eosinophils (%) (Auto) 1.4 % Basophils (%) (Auto) 1.1 % Neutrophils # (Auto) 3.6 TH/MM3 Lymphocytes # (Auto) 2.1 TH/MM3 Monocytes # (Auto) 0.4 TH/MM3 Eosinophils # (Auto) 0.1 TH/MM3 Basophils # (Auto) 0.1 TH/MM3 CBC Comment DIFF FINAL Differential Comment Clue Cells (Wet Prep) NONE SEEN Vaginal Trichomonas (Wet Prep) NONE SEEN Vaginal Yeast (Wet Prep) NONE SEEN Blood Urea Nitrogen 12 MG/DL Creatinine 0.94 MG/DL Random Glucose 86 MG/DL Total Protein 7.4 GM/DL Albumin 3.4 GM/DL Calcium Level 8.6 MG/DL Alkaline Phosphatase 110 U/L Aspartate Amino Transf (AST/SGOT) 15 U/L Alanine Aminotransferase (ALT/SGPT) 15 U/L Total Bilirubin 0.3 MG/DL Sodium Level 140 MEQ/L Potassium Level 4.0 MEQ/L Chloride Level 107 MEQ/L Carbon Dioxide Level 25.6 MEQ/L Anion Gap 7 MEQ/L Estimat Glomerular Filtration Rate 64 ML/MIN Lipase 38 U/L Urine Color YELLOW Urine Turbidity HAZY Urine pH 5.0 Urine Specific [place] 1.025 Urine Protein 30 mg/dL Urine Glucose (UA) NEG mg/dL Urine Ketones NEG mg/dL Urine Occult Blood NEG Urine Nitrite NEG Urine Bilirubin NEG Urine Urobilinogen LESS THAN 2 mg/dL Urine Leukocyte Esterase TRACE Urine WBC 5 /hpf Urine Squamous Epithelial Cells 5 /hpf Urine Hyaline Casts 3 /lpf Urine Mucus MANY /lpf Microscopic Urinalysis Comment CULT NOT INDICATED MDM Medical Decision Making Medical Screen Exam Complete: Yes Emergency Medical Condition: Yes Medical Record Reviewed: Yes Interpretation(s) Last Impressions Pelvis Ultrasound 08/18/17 0000 Signed Impressions: CONCLUSION: 1. 4.0 x 3.7 x 2.8 cm fibroid within the uterine fundus. 2. 5.9 x 5.0 x 3.0 cm cyst within the right ovary. 3. Trace amount of free fluid within the pelvis. Laboratory Tests Test 08/18/17 19:10 08/18/17 20:32 White Blood Count 6.2 TH/MM3 Red Blood Count 4.57 MIL/MM3 Hemoglobin 11.6 GM/DL Hematocrit 36.1 % Mean Corpuscular Volume 79.0 FL Mean Corpuscular Hemoglobin 25.3 PG Mean Corpuscular Hemoglobin Concent 32.0 % Red Cell Distribution Width 16.0 % Platelet Count 320 TH/MM3 Mean Platelet Volume 9.6 FL Neutrophils (%) (Auto) 58.4 % Lymphocytes (%) (Auto) 33.2 % Monocytes (%) (Auto) 5.9 % Eosinophils (%) (Auto) 1.4 % Basophils (%) (Auto) 1.1 % Neutrophils # (Auto) 3.6 TH/MM3 Lymphocytes # (Auto) 2.1 TH/MM3 Monocytes # (Auto) 0.4 TH/MM3 Eosinophils # (Auto) 0.1 TH/MM3 Basophils # (Auto) 0.1 TH/MM3 CBC Comment DIFF FINAL Differential Comment Clue Cells (Wet Prep) NONE SEEN Vaginal Trichomonas (Wet Prep) NONE SEEN Vaginal Yeast (Wet Prep) NONE SEEN Blood Urea Nitrogen 12 MG/DL Creatinine 0.94 MG/DL Random Glucose 86 MG/DL Total Protein 7.4 GM/DL Albumin 3.4 GM/DL Calcium Level 8.6 MG/DL Alkaline Phosphatase 110 U/L Aspartate Amino Transf (AST/SGOT) 15 U/L Alanine Aminotransferase (ALT/SGPT) 15 U/L Total Bilirubin 0.3 MG/DL Sodium Level 140 MEQ/L Potassium Level 4.0 MEQ/L Chloride Level 107 MEQ/L Carbon Dioxide Level 25.6 MEQ/L Anion Gap 7 MEQ/L Estimat Glomerular Filtration Rate 64 ML/MIN Lipase 38 U/L Urine Color YELLOW Urine Turbidity HAZY Urine pH 5.0 Urine Specific [place] 1.025 Urine Protein 30 mg/dL Urine Glucose (UA) NEG mg/dL Urine Ketones NEG mg/dL Urine Occult Blood NEG Urine Nitrite NEG Urine Bilirubin NEG Urine Urobilinogen LESS THAN 2 mg/dL Urine Leukocyte Esterase TRACE Urine WBC 5 /hpf Urine Squamous Epithelial Cells 5 /hpf Urine Hyaline Casts 3 /lpf Urine Mucus MANY /lpf Microscopic Urinalysis Comment CULT NOT INDICATED Differential Diagnosis Differential diagnosis includes bladder prolapse, uterine prolapse, rectal prolapse, UTI, cervicitis, PID, cancer, fibroid, drug-seeking behavior. Narrative Course IV was established, labs were drawn and sent, and the patient was placed on cardiac telemetry monitoring and continuous pulse oximetry monitoring. The patient was administered Reglan, Benadryl, Toradol, and IV fluids. UA was sent to lab. Pelvic exam was completed in the presence of a female nurse. Wet prep and gonorrhea/chlamydia were sent to lab. Ultrasound of the pelvis reveals a uterine fibroid and a right ovarian cyst. Wet prep was negative. Laboratory evaluation was unremarkable. Diagnosis Primary Impression: Ovarian cyst Qualified Codes: N83.201 - Unspecified ovarian cyst, right side Additional Impressions: Uterine fibroid Qualified Codes: D25.9 - Leiomyoma of uterus, unspecified Uterine prolapse Patient Instructions: General Instructions Additional Instructions: Please provide the patient a copy of her ultrasound results and lab results at discharge. Follow-up with a two needle machine operator. Ibuprofen as directed. Med/Other Pt SpecificInfo: Prescription(s) given Scripts Ibuprofen (Ibuprofen) 600 Mg Tab 600 MG PO Q6H Y for Pain/Inflammation, #20 TAB 0 Refills Prov: Mainor Pereira MD 08/18/17 Disposition: 01 DISCHARGE HOME Condition: Stable Mainor Pereira MD Aug 18, 2017 19:06
[2017-08-18] MEDS ORDERED: GABA600T PO (19:13)
[2017-08-18 19:37] LABS: AUTOMATED NEUTROPHIL # 3.6 TH/MM3 (1.8-7.7); BASOPHIL # 0.1 TH/MM3 (0-0.2); BASOPHIL % 1.1 % (0.0-2.0); EOSINOPHIL # 0.1 TH/MM3 (0-0.4); EOSINOPHIL % 1.4 % (0.0-4.0); HEMATOCRIT 36.1 % (35.0-46.0); HEMOGLOBIN 11.6 GM/DL (11.6-15.3); LYMPH % 33.2 % (9.0-44.0); LYMPHOCYTE # 2.1 TH/MM3 (1.0-4.8); MEAN CORPUSCULAR HEMOGLOBIN 25.3 PG (27.0-34.0); MEAN PLATELET VOLUME 9.6 FL (7.0-11.0); MONO % 5.9 % (0.0-8.0); MONOCYTE # 0.4 TH/MM3 (0-0.9); NEUT % 58.4 % (16.0-70.0); PLATELET COUNT 320 TH/MM3 (150-450); RED BLOOD COUNT 4.57 MIL/MM3 (4.00-5.30); WHITE BLOOD COUNT 6.2 TH/MM3 (4.0-11.0)
[2017-08-18 19:56] LABS: ALBUMIN 3.4 GM/DL (3.4-5.0); AST (GOT) 15 U/L (15-37); BICARBONATE 25.6 MEQ/L (21.0-32.0); BLOOD UREA NITROGEN 12 MG/DL (7-18); CALCIUM 8.6 MG/DL (8.5-10.1); CHLORIDE 107 MEQ/L (98-107); CREATININE 0.94 MG/DL (0.50-1.00); GLOMERULAR FILTRATION RATE 64 ML/MIN (>89); GLUCOSE,RANDOM 86 MG/DL (74-106); SODIUM (NA) 140 MEQ/L (136-145)
[2017-08-18 19:57] LABS: ALT (GPT) 15 U/L (10-53)
[2017-08-18 19:59] LABS: ALKALINE PHOSPHATASE 110 U/L (45-117); TOTAL BILIRUBIN ADULT 0.3 MG/DL (0.2-1.0); TOTAL PROTEIN 7.4 GM/DL (6.4-8.2)
[2017-08-18] MEDS ORDERED: ACETAMINOPHEN 325 MG TAB PO ONE (20:15)
--- NOTE | 2017-08-18 20:43 | RADRPT ---
EXAM DATE: 08/18/2017 8:28 PM EDT AGE/SEX: 47 years / Female INDICATIONS: Pelvic pain. CLINICAL DATA: This is the patient's subsequent encounter. Patient reports that signs and symptoms h ave been present for 3 days and indicates a pain score of 10/10. MEDICAL/SURGICAL HISTORY: Hypertension. Gastroesophageal reflux disease. Seizures. Myocardial infarction. Congestive heart failure. COPD. Ovarian cysts. UTI. MRSA. Enlarged liver and spleen. Subs tance use. Appendectomy. Cholecystectomy. Tubal ligation. Dilation and curettage. COMPARISON: No prior exams available for comparison. MEASUREMENTS: Uterus:__10.5 x 7.1 x 5.7 cm Endometrial Stripe:__3 mm Right Ovary:__ 5.9 x 5.0 x 3.0 cm Left Ovary:__ 2.8 x 2.3 x 1.7 cm FINDINGS: Uterus: The examination demonstrates an area of heterogeneous echotexture in the uterine fundus flako uring 4.0 x 3.7 x 2.8 cm most consistent with a sizable uterine fibroid. Endometrial Stripe: The endometrial stripe displays homogeneous echotexture. Right Ovary: The examination demonstrates a 5.9 x 5.0 x 3.0 cm anechoic cyst within the right ovary. Left Ovary: Ovary contains no mass or significant cystic lesion. Fluid: Trace free fluid. Other: None. CONCLUSION: 1. 4.0 x 3.7 x 2.8 cm fibroid within the uterine fundus. 2. 5.9 x 5.0 x 3.0 cm cyst within the right ovary. 3. Trace amount of free fluid within the pelvis. Electronically signed by: Steve Alvarado MD 08/18/2017 8:41 PM EDT
[2017-08-18 20:51] LABS: BILIRUBIN, URINE NEG (NEG); BLOOD, URINE NEG (NEG); GLUCOSE,URINE NEG (NEG); HYALINE CAST, URINE 3 /lpf (RARE); KETONE, URINE NEG (NEG); MUCUS URINE MANY /lpf (OCC); NITRITE,URINE NEG (NEG); SQUAMOUS EPITHELIAL CELL URINE 5 /hpf (0-5); URINE COLOR YELLOW (YELLW/STRAW); URINE LEUKOCYTE ESTERASE TRACE (NEG)
[2017-08-18] MEDS ORDERED: IBUP-232 PO (21:02)
== END 2017-08-18 21:29 | disposition home or self-care (01) ==
LOC: NEPD 17:22
DX: N83.201 Unspecified ovarian cyst, right side (principal); D25.9 Leiomyoma of uterus, unspecified; N81.4 Uterovaginal prolapse, unspecified; R30.0 Dysuria; R10.13 Epigastric pain; R11.2 Nausea with vomiting, unspecified; E78.00 Pure hypercholesterolemia, unspecified; I10 Essential (primary) hypertension; K21.9 Gastro-esophageal reflux disease without esophagitis; G40.909 Epilepsy, unspecified, not intractable, without status epilepticus; F31.9 Bipolar disorder, unspecified; F41.8 Other specified anxiety disorders; I25.2 Old myocardial infarction; F17.200 Nicotine dependence, unspecified, uncomplicated; Z86.79 Personal history of other diseases of the circulatory system; Z87.09 Personal history of other diseases of the respiratory system; Z86.69 Personal history of other diseases of the nervous system and sense organs
CPT/HCPCS: 76856; 80053; 81001; 83690; 85025; 87210; 87491; 87591; 93975; 96361; 96374; 96375; 99284; J1200; J1885; J2765; J7030

== ENCOUNTER 2018-02-11 22:29 | Observation (INO) ==
--- NOTE | 2018-02-11 23:18 | ED ---
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 Dr Aden discussed case with Dr Seay for obstetrics service who requested transfer to [facility] ED so she could evaluate the patient. Pt c /o persistent bleeding at the time of my interview at the bedside (1115PM). Abdomen pain is also reported. Pt reports accidentally cutting the prolapsed uterus with a razor. No CP/SOB. No headache/palpitations. Onset sudden. Timing constant. Related Data Home Medications Medication Instructions Recorded Confirmed gabapentin 1,200 mg PO BID 09/06/17 02/11/18 clonazepam [Klonopin] 1 mg PO TID 11/05/17 02/11/18 olanzapine [Zyprexa] 15 mg PO QPM 11/05/17 02/11/18 Allergies Allergy/AdvReac Type Severity Reaction Status Date / Time Sulfa (Sulfonamide Allergy Severe Rash Verified 02/11/18 20:07 Antibiotics) magnesium AdvReac Unknown PRUITIC Verified 02/11/18 20:07 RASH magnesium sulfate AdvReac Unknown PRUITIC Verified 02/11/18 20:07 RASH prochlorperazine AdvReac Unknown ANGINA Verified 02/11/18 20:07 terbutaline AdvReac Unknown HEART RATE Verified 02/11/18 20:07 ELEVATES Review of Systems ROS: all other systems reviewed are negative [facility] Social History Social History Substance History: No History of Abuse and Active Abuse Second Hand Smoke Exposure: Yes Smoking Status: Current every day smoker Tobacco Type: Cigarettes How Often Do You Have a Drink Containing Alcohol: Monthly or less Substance Abuse Detail Marijuana: Substance Use Status: Active Reason for Use: Get High Immunization History Tetanus Immunization: <5 Years Tetanus Immunization Year if Known: 2017 Course Initial Documented Vital Signs Pulse Rate 94 H 02/11/18 22:34 Respiratory Rate 20 02/11/18 22:34 Blood Pressure 137/86 02/11/18 22:34 Pulse Oximetry 100 02/11/18 22:34 Last Documented Vital Signs Pulse Rate 94 H 12/20/18 22:34 Respiratory Rate 20 02/11/18 22:34 Blood Pressure 137/86 02/11/18 22:34 Pulse Oximetry 100 02/11/18 22:34 Medical Decision Making MDM Narrative Medical decision making narrative: Pt hemodynamically stable in ED. On exam there is clotted blood about laceration along wall of prolapsed uterus. No active arterial bleeding. Dr Seay present at bedside approximately 1215AM. Pt will go to OR today with Dr Seay. 23 hour obs orders placed. Medical Screen Exam Complete: Yes Emergency Medical Condition: Yes Discharge Plan Discharge Order Discharge Orders: ED Use Only Admit Order (Routine); Ordered 02/12/18 Ordered By: Steve Whitten Physicians Team ED Provider: Steve Whitten Primary Care Provider: UNKNOWN, Rxs /Orders / Referrals /Forms Prescriptions: No Action gabapentin 600 mg Tablet 1,200 mg PO BID RF: 0 clonazepam [Klonopin] 1 mg Tablet 1 mg PO TID RF: 0 olanzapine [Zyprexa] 15 mg Tablet 15 mg PO QPM RF: 0 Status ED Status: With Doctor
[2018-02-11] MEDS ORDERED: Morphine Inj 4 MG/ML Vial IV.PUSH ONE (23:23)
[2018-02-12] MEDS ORDERED: clonazePAM 1 MG Tablet PO ONE (00:21)
[2018-02-12] MEDS ORDERED: FERRIC SUBSULFATE TOPICAL ONE (00:35)
--- NOTE | 2018-02-12 00:50 | P.CONOB ---
History of Present Illness Service: land survey technician Consult date: 02/12/18 Reason for Consult: vaginal bleeding History of Present Illness: Pt is a 47 yo swf who presents as a transfer from [place] for evaluation of uterine/cervical laceration.Pt has a h/o prolapse and states that she cut herself while shaving today. States that she had copious amounts of blood loss at home and was not able to stop the bleeding with pressure. She states that she has had small cuts in the past but this time she had a large "gash." She was packed at [place] and transferred for further land survey technician evaluation. She is mostly upset about having uterine prolapse. She was going to see Dr. Tovar from a prior ED referral but was not able to pay for visit. States she had bleeding every 2 weeks. PMH: Colitis, HepC,h/o IVD use, Bipolar/schizophrenia, Cervical dysplasia (no pap in over 8 years) PSHx: appendicitis, dx lsc to r/o ectopic [id number]. 6 ftsvd, 2 , 1 sab, 1 eab, 1 ectopic, one still . LOOP PULLER : H/o PID, GC, Trich. Uterine prolapse. No land survey technician care in 8 years Fam: non-contributory Soc: lives in ex-'s house presently, not employed. + MJ and tob use. Prior ivd use - in recovery Review of Systems All other systems reviewed negative except as stated in HPI Gastrointestinal: Reports abdominal pain Genitourinary: Reports abnormal periods, Reports genital lesions PMFSH - History History Provided By: Patient - Medical History Medical History: Medical History (Last Reviewed 02/11/18 @ 21:26 by Jocelin Richardson RN) Prolapsed, uterovaginal, incomplete (Acute) Bipolar 1 disorder (Acute) Depression (Acute) Seizures concurrent with and due to withdrawal from psychoactive substance ( Acute) Mini stroke (Acute) History of heart attack (Acute) - Tobacco History Second Hand Smoke Exposure: Yes Tobacco Use In Past 30 Days: Yes Smoking Status: Current every day smoker Tobacco Type: Cigarettes - Alcohol History How Often Do You Have a Drink Containing Alcohol: Monthly or less - Substance Use History Substance History: No History of Abuse, Active Abuse - Substance Use Type Marijuana Status: Active Reason for Use: Get High - Immunization History Tetanus Immunization: <5 Years Tetanus Immunization Year if Known: 2017 Medications and Allergies Active Medications: Active Medications Estrogens Conjugated (Premarin Vag Cream) 1 appful VAGINAL HS KRISHNA Ferric Subsulfate (Monsel's Topical Solution) 1 ml TOPICAL ONCE ONE Stop: 02/12/18 00:36 Allergies Allergy/AdvReac Type Severity Reaction Status Date / Time Sulfa (Sulfonamide Allergy Severe Rash Verified 02/11/18 20:07 Antibiotics) magnesium AdvReac Unknown PRUITIC Verified 02/11/18 20:07 RASH magnesium sulfate AdvReac Unknown PRUITIC Verified 02/11/18 20:07 RASH prochlorperazine AdvReac Unknown ANGINA Verified 02/11/18 20:07 terbutaline AdvReac Unknown HEART RATE Verified 02/11/18 20:07 ELEVATES Home Medications Medication Instructions Recorded Confirmed Type gabapentin 1,200 mg PO BID 09/06/17 02/11/18 History clonazepam [Klonopin] 1 mg PO TID 11/05/17 02/11/18 History olanzapine [Zyprexa] 15 mg PO QPM 11/05/17 02/11/18 History Exam Vital signs: Vital Signs 02/11/18 22:34 Pulse Rate 94 H Respiratory Rate 20 Blood Pressure 137/86 Pulse Oximetry 100 Intake & Output 02/11/18 02/11/18 02/12/18 06:59 18:59 06:59 Weight 120 kg - Constitutional no acute distress - Routine HEENT Exam Head: Present: normocephalic Eye: Present: EOMI - Routine Neck Exam Present: full ROM - Routine Chest/Breast/Axilla Exam Chest wall: Absent: tenderness - Routine Respiratory Exam Absent: accessory muscle use - Routine Cardiovascular Exam Present: RRR - Routine Abdominal Exam Present: soft - Routine Exam Comments: uterine prolapse, two deep lacerations that are located at level of introitus. Hemostatic until patient valsalvas and coughs. Small gush of blood noted from more cephalad laceration. Several polyp like projections from right lateral aspect of cervix. There is approx 5 cm of prolapsing tissue, a thin portion of tissue then the uterine body is palpated beyond this. laceration irrigated. Monsel's placed. vaginal packing with premarin and lubricant placed over laceration and prolapse reduced back into vagina. - Routine Extremities Exam Absent: cyanosis, edema Assessment and Plan - Diagnosis (1) Prolapsed, uterovaginal, incomplete Code(s): N81.2 - Incomplete uterovaginal prolapse Status: Acute - Plan 47 yo with cervical/vaginal laceration of prolapsing uterus. She will be admitted for observation and scheduled for exam under anesthesia, repair of cervical and vaginal laceration, cervical biopsies and any other indicated procedure. Reviewed risks of bleeding, infection, damage to organs. Reviewed that normal anatomical planes are distorted and this increases risk to damage of underlying structures. Discussed that hysterectomy would only be performed as a means to achieve hemostasis. Consents signed. Case has been added to OR schedule. Discussed with patient that given abnormal exam, there is always concern for cancer.
[2018-02-12] MEDS ORDERED: Sod Chloride 0.9% Inj 1,000 ML IV.SIG SCH (02:00)
[2018-02-12] MEDS: Estrogens Congugated Vag Cream w/app 30 GM Tube VAGINAL SCH ×2 (04:52→21:46)
[2018-02-12] MEDS: Morphine Inj 4 MG/ML Vial IV.PUSH PRN ×4 (06:47→21:45)
[2018-02-12] MEDS: Gabapentin 300 MG Capsule PO SCH ×3 (08:22→17:21)
[2018-02-12] MEDS ORDERED: Metoprolol Tartrate 25 MG Tablet PO SCH (11:17)
[2018-02-12] MEDS ORDERED: Chlorhexidine Gluconate 2% 1 Pack (2 Cloths) TOPICAL SCH (11:17)
[2018-02-12] MEDS ORDERED: Sodium Chlor 0.9% Inj 500 ML IV.SIG SCH (12:00)
[2018-02-12] MEDS ORDERED: fentaNYL Citrate Inj 100 MCG/2 ML Ampul ONE (12:23)
[2018-02-12] MEDS ORDERED: *Meperidine Inj 25 MG/ML Vial PERIprocedural Use ONLY ONE (13:53)
--- NOTE | 2018-02-12 14:16 | MH ---
cc: Dov Ochoa MD DATE OF ADMISSION: 02/12/2018 REASON FOR CONSULTATION: Vaginal bleeding, vaginal and cervical lacerations. HISTORY OF PRESENT ILLNESS: This is a 47-year-old single white female who presented to the emergency room last night at [place]. She was evaluated and transferred up to [facility] by Dr. Seay. She had a history of a prolapsed uterus and tried to cut it off herself today. Now, she is having copious amount of bleeding and is being brought to the operating room. She was packed last night with pressure to stop the bleeding. Also, she has antibody in her blood and blood is available in case we needed. PAST MEDICAL HISTORY: Remarkable for colitis, hepatitis C, IV drug abuse, bipolar, schizophrenia, and cervical dysplasia. PAST SURGICAL HISTORY: Remarkable for appendicitis, diagnostic laparoscopy to rule out ectopic, and a bilateral tubal ligation. PAST OBSTETRIC HISTORY: She is 13, para 6-2-3-7. She had 6 full-term vaginal deliveries, 2 vaginal deliveries, 1 miscarriage, 1 elective AB, 1 ectopic, and 1 still . PAST GYNECOLOGIC HISTORY: She has a history of PID, GC/CT and uterine prolapse. She has had no LINE TESTER care. No Pap in 8 years. FAMILY HISTORY: Noncontributory. ALLERGIES: SULFA. FAMILY HISTORY: Noncontributory. SOCIAL HISTORY: She lives in her ex-'s house and is presently not employed. She smokes tobacco a pack a day. She used IV drugs prior, she is currently in recovery. No alcohol. REVIEW OF SYSTEMS: CONSTITUTIONAL: No headaches, no fevers, no chills. RESPIRATORY: No recent shortness of breath. She does have a chronic cough from smoking. CARDIOVASCULAR: No chest pain or pressure. ABDOMEN: She has lower abdominal and pelvic pain, which is constant for years. Good bowel and bladder function. PHYSICAL EXAMINATION: GENERAL: Reveals a well-developed, well-nourished female, in no acute distress. She is somewhat nervous prior to going to the operating room. VITAL SIGNS: Her pulse is 94, respirations are 20, blood pressure is 137/86, her pulse oximetry is 100. Her weight is 120 pounds. HEENT: Normocephalic, atraumatic. NECK: Supple. Trachea is in the midline. No thyromegaly or adenopathy. CHEST: Clear to auscultation and percussion. HEART: a regular rate and rhythm. BREASTS: There are no palpable masses or lesions. SKIN: Normal. ABDOMEN: Soft, nontender except for suprapubically she is slightly tender. The laparoscopy scars are evident and well healed. GYNECOLOGIC: Deferred to the operating room. EXTREMITIES: No clubbing, cyanosis, or edema. ASSESSMENT AND PLAN: 1. Cervical and vaginal lacerations which are quite deep. These need to be repaired. 2. History of dysplasia. She has not had a Pap in many years. I will go ahead and do some cervical biopsies and endocervical curettage, and D and C at this time. She is going to need a Pap before she goes to the operating theater and has this surgically repaired. Apparently, she has tried this in the past, but did not have the financial ability to get this taken care of. 3. Vaginal uterine prolapse. Again, we will examine her in the operating theater and she can either have a pessary or a total vaginal hysterectomy at some point to relieve her pressure and pain. She understands that the only way we would do a hysterectomy today would be if we could not control the bleeding. We would not want to make the error of performing a hysterectomy without cervical cytology and to ensure that she does not have any cervical lesion since she has a history of dysplasia that was not followed up. 4. Hepatitis C. I will inform the operating team. 5. Smoker. I have advised her to quit. R. MD NAT Kang/alvaro , 12:25 PM , 12:36 PM
[2018-02-12] MEDS ORDERED: *morphine SULFATE 10 MG/ML PERIprocedure ONLY ONE (14:32)
--- NOTE | 2018-02-12 14:52 | MP ---
cc: Dov Ochoa MD, Patricia C MD DATE OF OPERATION: 02/12/2018 PREOPERATIVE DIAGNOSES: 1. Multiple lacerations of the vagina. 2. History of dysplasia, no care in 8 years. 3. Total uterovaginal prolapse. POSTOPERATIVE DIAGNOSES: 1. Multiple lacerations of the vagina. 2. History of dysplasia, no care in 8 years. 3. Total uterovaginal prolapse. PROCEDURE PERFORMED: 1. Repair of multiple lacerations of the vagina together measuring about 6 cm. 2. Endocervical curettage. ANESTHESIA: General. SURGEON: Dov Ochoa MD. FINDINGS: On examination under anesthesia, the patient had a total vaginal prolapse. The cervix is sticking out about 12 cm from the introitus. The cervix is pinpoint and no lesions. There are multiple lacerations of the vagina around the prolapsed area. Several of them are quite deep, probably 5-6 mm and together they measure approximately 6 cm in length altogether. The bimanual is negative for any masses. COMPLICATIONS: None. COUNTS: Correct. ESTIMATED BLOOD LOSS: 50 mL. FLUIDS: Crystalloids. CONDITION: The patient tolerated the procedure well, went to the recovery room in good condition. DESCRIPTION OF PROCEDURE: The patient was taken to the operating room, identified by name band and verbally, given a general anesthetic, carefully placed in dorsal lithotomy position, prepped and draped in the usual sterile manner for vaginal surgery. Examination under anesthesia was carried out with the above findings. The cervix and uterus prolapsed a great deal, approximately 12 cm out. There were multiple lacerations, which were repaired with 3-0 Vicryl and on a SH needle. All areas were hemostatic at the time of repair. We then went ahead and did multiple ECCs. We tried to enter the uterus; but, due to the cervical stenosis, it was impossible to even get a silver wire in through the canal. Therefore, we abandoned the D and C. At this point, everything was hemostatic. She tolerated the procedure well. The prolapse was pushed back inside and she tolerated the procedure well. I will be going ahead and getting a psych evaluation because of her attempted hysterectomy at home and I spoke to Dr. Bib Kaiser. He will have somebody see her tomorrow. R. Bib Ochoa MD RJV/ts , 02:14 PM , 02:19 PM
[2018-02-12] MEDS: clonazePAM 1 MG Tablet PO SCH (17:21)
[2018-02-12 19:35] LABS: Bacteria,Urine Occasional /hpf; Bilirubin,Urine Negative (Negative); Clarity,Urine Hazy (Clear); Color,Urine Yellow (Yellw/Straw); Glucose,Urine (UA) 50 mg/dL (Negative); Leukocyte Esterase,Urine Trace (Negative); Mucus,Urine Few /lpf (Occasional); Nitrite,Urine Negative (Negative); Specific Gravity,Urine 1.014 (1.002-1.035); Squamous Epithelial Cell,Urine 7 /hpf (0-5)
[2018-02-12] MEDS ORDERED: OLANZapine 15 MG Tablet PO SCH (21:00)
[2018-02-12] MEDS: Gabapentin 400 MG Capsule PO SCH (21:46)
[2018-02-13] MEDS: Morphine Inj 4 MG/ML Vial IV.PUSH PRN ×3 (00:45→14:03)
[2018-02-13 07:16] LABS: Baso % (Auto) 0.3 % (0.0-2.0); Hematocrit 35.8 % (35.0-46.0); Hemoglobin 11.6 gm/dL (11.6-15.3); Lymph # (Auto) 1.2 th/mm3 (1.0-4.8); Lymph % (Auto) 13.1 % (9.0-44.0); Mean Corpuscular HGB Conc 32.6 % (32.0-36.0); Mean Corpuscular Hemoglobin 29.3 pg (27.0-34.0); Mean Corpuscular Volume 90.1 fL (80.0-100.0); Mono # (Auto) 0.3 th/mm3 (0.0-0.9); Mono % (Auto) 3.9 % (0.0-8.0); Neut # (Auto) 7.3 th/mm3 (1.8-7.7); Neut % (Auto) 82.7 % (16.0-70.0); Platelet Count 210 th/mm3 (150-450); Red Blood Count 3.97 mil/mm3 (4.00-5.30); Red Cell Distribution Width 16.3 % (11.6-17.2); White Blood Count 8.8 th/mm3 (4.0-11.0)
[2018-02-13] MEDS: Gabapentin 400 MG Capsule PO SCH (08:36)
[2018-02-13] MEDS: clonazePAM 1 MG Tablet PO SCH ×2 (08:36→13:02)
[2018-02-13] MEDS: Gabapentin 300 MG Capsule PO SCH ×2 (08:37→13:02)
--- NOTE | 2018-02-13 16:34 | P.OBGPN ---
Patient doing fairly well this morning she wants pain medicine by mouth. Physical exam Chest is clear Heart has a regular rate and rhythm Abdomen is soft nontender The pelvic exam she got very little bleeding Extremities there is no clubbing cyanosis edema Assessment and plan #1. status post repair of multiple vaginal lacerations. He has complete uterine prolapse and needs a vaginal hysterectomy in the near future. She may need to see a pelvic floor scraper. I have called the psychiatric unit and told them she needs a consult today as it was put in yesterday as I am not comfortable just sending her home after trying to perform a hysterectomy at home. I have also asked for a social service consult to get her on patient assistance. I would like her to see Dr. Ish Martinez for follow-up as he is a pelvic floor surgeon.
--- NOTE | 2018-02-13 17:05 | P.CONPSY ---
Provisional Diagnosis Admission Date: February 12, 2018 04:42 History of Present Illness Service: psychiatry Consult date: 02/13/18 Reason for Consult: cutting uterus Primary Care Provider: UNKNOWN Chief Complaint: none History of Present Illness: This is a request for a psychiatric consult. Documentation was reviewed, case was discussed with nursing and patient was evaluated. Patient is a 47-year-old female with a history of bipolar disorder and schizophrenia. She was interviewed today with her boyfriend who lives with her in the room. We are consulted because patient was brought to the emergency room and subsequently admitted for cutting her uterine prolapse. Patient says that she cut her body by accident while she was shaving. Her senior commercial loan officer confirms that she does in fact have a prolapse. Boyfriend also confirms that he believes this was an accident. Patient is pleasant and cooperative with exam and has good insight into her mental health and physical health. She is prescribed Zyprexa 15 mg nightly for psychosis but has been out for the last 2 weeks. At this time no delusional material was elicited. There are no ideas of reference. She denies auditory or visual hallucinations. Thought process is logical and organized. Mood is "okay." She denies any suicidal or homicidal patient intent or plan. No symptoms of yoni were elicited. Past psych: Patient is a history of 3 Tierney act. One suicide attempt a year ago after her boyfriend broke up with her and she overdosed on medication. She denies a history of purposeful cutting. She is on Zyprexa as noted above and says she ran out because of finances Past medical: See chart Past Famhx: Denies Past Social: Patient lives with her boyfriend. Patient has 6 kids. She denies alcohol or substance use. Disability is pending for physical reasons, no recent stressors identified Review of Systems All other systems reviewed negative except as stated in HPI PMFSH - History History Provided By: Patient - Medical History Medical History: Medical History (Last Reviewed 02/13/18 @ 17:03 by Mateo Mendoza DO) Prolapsed, uterovaginal, incomplete (Acute) Bipolar 1 disorder (Acute) Depression (Acute) Seizures concurrent with and due to withdrawal from psychoactive substance ( Acute) Mini stroke (Acute) History of heart attack (Acute) - Tobacco History Second Hand Smoke Exposure: Yes Tobacco Use In Past 30 Days: Yes Smoking Status: Current every day smoker Tobacco Type: Cigarettes - Alcohol History How Often Do You Have a Drink Containing Alcohol: Never - Substance Use History Substance History: Past History - Substance Use Type Marijuana Status: Sustained Remission Route Used: Intravenously Frequency: every day, dilaudid, ashleigh Reason for Use: Get High - Immunization History Tetanus Immunization: Unsure Tetanus Immunization Year if Known: 2016 Hx Influenza Vaccine This Season: No Medications and Allergies Active Medications: Active Medications Clonazepam (Klonopin) 1 mg PO TID [facility] Last Admin: 02/13/18 13:02 Dose: 1 mg Estrogens Conjugated (Premarin Vag Cream) 1 appful VAGINAL HS [facility] Last Admin: 02/12/18 21:46 Dose: 1 appful Gabapentin (Neurontin) 600 mg PO TID [facility] Last Admin: 02/13/18 13:02 Dose: 600 mg Gabapentin (Neurontin) 1,200 mg PO BID [facility] Last Admin: 02/13/18 08:36 Dose: 1,200 mg Lactated Ringer's (Lr 1000 Ml Inj) 1,000 mls @ 50 mls/hr IV.SIG .Q20H [facility] Last Admin: 02/13/18 12:57 Dose: 50 mls/hr Morphine Sulfate (Morphine Inj) 4 mg IV.PUSH Q2H PRN PRN Reason: BREAKTHROUGH PAIN Last Admin: 02/13/18 14:03 Dose: 4 mg Olanzapine (Zyprexa) 15 mg PO HS [facility] Last Admin: 02/12/18 21:46 Dose: 15 mg Ondansetron HCl (Zofran Odt) 4 mg PO Q6H PRN PRN Reason: NAUSEA OR VOMITING Last Admin: 02/13/18 14:04 Dose: 4 mg Ondansetron HCl (Zofran Inj) 4 mg IV.PUSH Q6H PRN PRN Reason: NAUSEA OR VOMITING Sodium Chloride (Ns Flush) 2 ml IV.FLUSH BID [facility] Last Admin: 02/13/18 09:38 Dose: Not Given Sodium Chloride (Ns Flush) 2 ml IV.FLUSH UNSCH PRN PRN Reason: FLUSH AFTER USING IV ACCESS Allergies Allergy/AdvReac Type Severity Reaction Status Date / Time Sulfa (Sulfonamide Allergy Severe Rash Verified 02/12/18 08:24 Antibiotics) magnesium AdvReac Unknown PRUITIC Verified 02/12/18 08:24 RASH magnesium sulfate AdvReac Unknown PRUITIC Verified 02/12/18 08:24 RASH prochlorperazine AdvReac Unknown ANGINA Verified 02/12/18 08:24 terbutaline AdvReac Unknown HEART RATE Verified 02/12/18 08:24 ELEVATES Home Medications Medication Instructions Recorded Confirmed Type clonazepam [Klonopin] 1 mg PO TID 11/05/17 02/11/18 History Exam Vital signs: Vital Signs 02/12/18 20:03 02/13/18 00:32 02/13/18 03:53 Temperature 97.4 F L 97.1 F L 98.3 F Pulse Rate 85 93 H 81 Respiratory Rate 17 16 16 Blood Pressure 134/72 137/88 99/55 L Pulse Oximetry 97 96 95 02/13/18 08:00 02/13/18 12:00 02/13/18 14:00 Temperature 97.4 F L 98.6 F Pulse Rate 89 84 94 H Respiratory Rate 18 18 16 Blood Pressure 121/68 92/50 L 123/86 Pulse Oximetry 98 100 96 Intake & Output 02/12/18 02/13/18 02/13/18 18:59 06:59 18:59 Intake Total 1400 / 1400 300 / 300 1000 / 1000 Output Total 30 / 30 300 / 300 Balance 1370 / 1370 0 / 0 1000 / 1000 Weight 59.3 kg Intake: IV 100 / 100 1000 / 1000 LR 1000 mL Inj 1,000 ML @ 50 1000 / 1000 mls/hr IV.SIG .Q20H [facility] Rx#: [id number] Ancef Inj 1,000 MG In NS Inj 100 / 100 100 ML @ 100 mls/hr IV.SIG ONCE ONE Rx#:[id number] Oral 300 / 300 Anesthesia Amount 1300 / 1300 Output: Urine 300 / 300 Stool 0 / 0 Estimated Blood Loss 30 / 30 Other: Date of Last Bowel Movement 02/11/18 02/11/18 02/12/18 Weight On Admission 59.3 kg Mental Status Examination Appearance: Appropriate Consciousness: Alert, Asleep Orientation: x4 Motor Activity: Normal gait Speech: Unremarkable Language: Adequate Fund of Knowledge: Adequate Attention and Concentration: Adequate Memory: Unremarkable Mood: Appropriate Affect: Appropriate Thought Process & Associations: Intact Thought Content: Appropriate Hallucination Type: None Delusion Type: None Suicidal Ideation: No Suicidal Plan: No Suicidal Intention: No Homicidal Ideation: No Homicidal Plan: No Homicidal Intention: No Insight: Poor Judgment: Poor Assessment and Plan - Assessment (1) Schizophrenia in partial remission with history of multiple episodes Code(s): F20.9 - Schizophrenia, unspecified Status: Acute - Plan Plan: There is no criteria to admit patient to the psychiatric unit at this time. She is not a danger to herself or others, no psychosis was elicited or acute manic symptoms. Herself and collateral confirmed that her cutting was an accident while shaving. I spoke with her discharging doctor and recommended he discharged her on her psychotropic medications. Patient says she will follow- up with her outpatient psychiatrist when she returns home Justification for Continued Inpatient Stay: none, dc
== END 2018-02-13 19:27 | disposition home or self-care (01) ==
LOC: NEPE 22:29 → HSDC 02-12 04:41 → N06 02-12 04:41
PROVIDERS: ADMIT Obstetrics & Gynecology; ATTEND Obstetrics & Gynecology
PROC: [UNRECOGNIZED PROCEDURE] (2018-02-12 12:30)